=== PATIENT | female | born 1940 | race Caucasian/White ===

== ENCOUNTER 2017-07-08 08:47 | Day surgery (SDC) | payer MEDICARE, SELFPAY ==
--- NOTE | 2017-07-08 | IMM_PTH ---
PATIENT: KENY BAPTISTE LOC: EN U#:[id number] AGE/SX: 77/F ROOM: RE07/08/[address]: Dr. Neville Ardon MD : 1940 BED: DIS: 07/08/2017 SPEC #: [id number] RECD: 07/11/17 13:28 STATUS: JUAN M REKelly #: [id number] HANSEL: 07/08/17 00:[address]: Neville Ardon DEPT: IMMUNOHISTOCHEMISTRY RECD BY: Deanna Mccormack ENTERED: 07/11/17 13:28 SP TYPE: IMMUNO OTHR DR: Dr. Sukhi Mcclure MD Tissues: A - Stomach, NOS Procedures: H Pylori (initial) PHYSICIAN & INSTITUTION [place] [address] SPECIMEN INFORMATION: Tissue Source: A ? Antrum biopsy Clinical Info: Uncontrolled GERD Specimen Number: [id number] CPT code: 71162 METHODOLOGY: Deparaffinized sections of prefer/formalin-fixed tissue or PAP/DQ stained slides are incubated with monoclonal/polyclonal antibodies/oligonucleotide probes. Localization is made via biotin free immunoperoxidase method. Appropriate controls are performed and reacted as expected. Results on target cell population are indicated in the following table: RESULTS: ANTIBODY / CLONE RESULT Block A H Pylori (polyclonal) negative These tests were developed and their performance characteristics determined by [facility]. They may not have been cleared or approved by the U.S. Food and Drug Administration. The FDA has determined that such clearance or approval is not necessary. INTERPRETATION: A. Antrum, biopsy: Negative for Helicobacter pylori organisms. AM:gemma 07/12/17
[2017-07-08 09:07] VITALS: BP 137/81; PULSE 75; RESP 16; TEMP 36.6; O2SAT 97; BMI 26.4
--- NOTE | 2017-07-08 10:16 | GASB_PTH ---
PATIENT: KENY BAPTISTE LOC: EN U#:[id number] AGE/SX: 77/F ROOM: RE07/08/[address]: Dr. Neville Ardon MD : 1940 BED: DIS: 07/08/2017 SPEC #: [id number] RECD: 07/08/17 11:39 STATUS: JUAN M RENETTA #: [id number] HANSEL: 07/08/17 10:[address]: Neville Ardon DEPT: SURGICAL PATHOLOGY RECD BY: Wagner Ko ENTERED: 07/08/17 12:58 SP TYPE: Gastric Bx OTHR DR: Dr. Sukhi Mcclure MD Tissues: A - Gastric mucous membrane B - Gastric mucous membrane C - Esophageal mucous membrane Procedures: Surgery Specimen Level IV HEADER OPERATION: EGD with biopsy PRE-OP DIAGNOSIS: Uncontrolled GERD TISSUE SUBMITTED: A ? Antrum biopsy, B ? Biopsy of gastric polyp, C ? Biopsy of distal esophagus FROZEN SECTION DIAGNOSIS A. The results of immunohistochemistry for Helicobacter pylori will be reported separately ([id number]). C. There is no evidence of reflux. Clinical correlation is suggested. MICROSCOPIC DIAGNOSIS A. Gastric antrum, biopsy: Gastritis. See microscopic description and comment. B. Gastric polyp, biopsy: Fundic gland polyp. C. Distal esophagus, biopsy: Fragments of benign squamous mucosa. See comment. AM:gemma 07/11/17 COMMENT A. The specimen shows fragments of gastric mucosa with chronic inflammatory cell infiltrates in the lamina propria consisting of lymphocytes and plasma cells, consistent with mild chronic gastritis. MICROSCOPIC DESCRIPTION Slides are reviewed. GROSS DESCRIPTION A - Received in fixative is one container labeled with the patient's name and designated antrum biopsy. The specimen consists of one irregular fragment of light smith soft tissue that measures 0.3 x 0.2 x 0.1 cm. The specimen is totally submitted in one cassette. B - Received in fixative is one container labeled with the patient's name and designated gastric polyp. The specimen consists of one irregular fragment of light smith soft tissue that measures 0.5 x 0.3 x 0.1 cm. The specimen is totally submitted in one cassette. C - Received in fixative is one container labeled with the patient's name and designated distal esophagus. The specimen consists of multiple irregular fragments of light smith soft tissue that in aggregate measure 0.6 x 0.5 x 0.1 cm. The specimen is totally submitted in one cassette. / AM:gemma 07/08/17 TC:3 CPT: 49725 x3
--- NOTE | 2017-07-08 10:16 | GASB_PTH ---
PATIENT: KENY BAPTISTE LOC: EN U#:[id number] AGE/SX: 77/F ROOM: RE07/08/[address]: Dr. Neville Ardon MD : 1940 BED: DIS: 07/08/2017 SPEC #: [id number] RECD: 07/08/17 11:39 STATUS: JUAN M RENETTA #: [id number] HANSEL: 07/08/17 10:[address]: Neville Ardon DEPT: SURGICAL PATHOLOGY RECD BY: Wagner Ko ENTERED: 07/08/17 12:58 SP TYPE: Gastric Bx OTHR DR: Dr. Sukhi Mcclure MD Tissues: A - Gastric mucous membrane B - Gastric mucous membrane C - Esophageal mucous membrane Procedures: Surgery Specimen Level IV HEADER OPERATION: EGD with biopsy PRE-OP DIAGNOSIS: Uncontrolled GERD TISSUE SUBMITTED: A ? Antrum biopsy, B ? Biopsy of gastric polyp, C ? Biopsy of distal esophagus MICROSCOPIC DIAGNOSIS A. Gastric antrum, biopsy: Gastritis. See microscopic description and comment. B. Gastric polyp, biopsy: Fundic gland polyp. C. Distal esophagus, biopsy: Fragments of benign squamous mucosa. See comment. AM:gemma 07/11/17 COMMENT A. The results of immunohistochemistry for Helicobacter pylori will be reported separately ([id number]). C. There is no evidence of reflux. Clinical correlation is suggested. MICROSCOPIC DESCRIPTION Slides are reviewed. A. The specimen shows fragments of gastric mucosa with chronic inflammatory cell infiltrates in the lamina propria consisting of lymphocytes and plasma cells, consistent with mild chronic gastritis. GROSS DESCRIPTION A - Received in fixative is one container labeled with the patient's name and designated antrum biopsy. The specimen consists of one irregular fragment of light smith soft tissue that measures 0.3 x 0.2 x 0.1 cm. The specimen is totally submitted in one cassette. B - Received in fixative is one container labeled with the patient's name and designated gastric polyp. The specimen consists of one irregular fragment of light smith soft tissue that measures 0.5 x 0.3 x 0.1 cm. The specimen is totally submitted in one cassette. C - Received in fixative is one container labeled with the patient's name and designated distal esophagus. The specimen consists of multiple irregular fragments of light smith soft tissue that in aggregate measure 0.6 x 0.5 x 0.1 cm. The specimen is totally submitted in one cassette. / AM:gemma 07/08/17 TC:3 CPT: 99741 x3
[2017-07-08 10:27] VITALS: BP 137/71; BP 149/67; PULSE 77; RESP 16; TEMP 37.1; O2SAT 98
--- NOTE | 2017-07-08 10:29 | OP.PCM_ITS ---
Problem List (1) GERD (gastroesophageal reflux disease) Status: Acute Report of Operation Date of Procedure: 07/08/17 Pre-Operative Diagnosis: Intractable gastroesophageal reflux disease Post-Operative Diagnosis: Hiatal hernia, distal esophagitis, gonzales gastritis, multiple gastric polyps Surgery/Procedure Performed:: Esophagogastroduodenoscopy with cold forcep biopsies Description of Surgical Findings:: Amount and informed consent was obtained. The patient was taken to the endoscopy suite. Because of multiple narcotic allergies monitored anesthesia care was utilized. Her oropharynx was anesthetized with Cetacaine. She was placed in the left lateral decubitus position. Flexible gastroscope was inserted into the esophageal inlet. Proximal mid distal esophagus not grossly workable. EG junction was only at 35 cm. Hiatal hernia noted. Mild changes consistent with distal esophagitis noted the scope was advanced into the stomach where diffuse mild erythema involving all of the stomach was noted. There were multiple gastric polyps noted. There appear to be easy friability and some evidence of some coffee-ground material around the polyps. The scope advanced through the pylorus and the first and second portions of the duodenum were inspected. This was not remarkable. The scope was withdrawn back into the stomach and antral biopsy was obtained. The scope was retroflexed in the EG junction inspected. The hiatal hernia noted. On fast view of the multiple body of the stomach gastric polyps noted. Photographs were obtained. Cold forcep biopsy of 1 of the more dominant polyps was achieved. Excess fluid and air was aspirated free. Cold forcep biopsies of the distal esophagus were obtained. The scope was carefully withdrawn there was no additional abnormality. Impression Hiatal hernia with findings consistent with distal esophagitis. Diffuse gastritis with multiple gastric polyps and suggestion of easy friability and small amounts of coffee-ground material consistent with recent bleeding. The patient will be notified of pathology results on biopsies as a become available. She does have multiple drug intolerances. She states that the recommended over- the-counter omeprazole/Nexium did her no good. At this time I will recommend sucralfate 1 g before meals and at bedtime while awaiting pathology results. I do not believe that she is surgically treatable disease at this time. Cc: Dr. Kami Ardon M.D., F.A.C.S. Type of Anesthesia:: MAC
[2017-07-08 10:30] VITALS: BP 132/70; BP 137/71; PULSE 75; RESP 16; O2SAT 98
[2017-07-08 10:35] VITALS: BP 137/71; BP 151/73; PULSE 74; RESP 16; O2SAT 97
[2017-07-08 10:40] VITALS: BP 137/71; BP 142/88; PULSE 68; RESP 16; TEMP 37.1; O2SAT 100
[2017-07-08 11:18] VITALS: BP 137/71
== END 2017-07-08 11:19 | disposition home or self-care (01) ==
LOC: EN 08:49 → AC 08:51
PROVIDERS: Family Provider Family Medicine; PCP Family Medicine; Visit Provider Surgery
PROC: 0DJ08ZZ Inspection of Upper Intestinal Tract, Via Natural or Artificial Opening Endoscopic (ICD-10-PCS; CPT 43235; principal; 2017-07-08 09:55)
DX: K29.70 Gastritis, unspecified, without bleeding (principal); K31.7 Polyp of stomach and duodenum; K21.9 Gastro-esophageal reflux disease without esophagitis; K44.9 Diaphragmatic hernia without obstruction or gangrene; E78.5 Hyperlipidemia, unspecified; G43.909 Migraine, unspecified, not intractable, without status migrainosus; R56.9 Unspecified convulsions; G47.30 Sleep apnea, unspecified; L43.9 Lichen planus, unspecified; M06.9 Rheumatoid arthritis, unspecified; Z79.891 Long term (current) use of opiate analgesic; Z79.899 Other long term (current) drug therapy
CPT/HCPCS: 43239; 88305; 88342; J7120

== ENCOUNTER → 2017-08-30 15:50 | Outpatient (CLI) | payer MEDICARE, SELFPAY ==
[2017-08-30 18:19] LABS: Absolute Lymphocyte Count 1.28 X10^3/ul (0.83-4.51); Absolute Neutrophil Count 3.2 X10^3/uL (2.0-7.7); Basophil# 0.01 X10^3/uL; Basophil% 0.2 % (0-1); Eosinophil# 0.13 X10^3/uL; Eosinophils% 2.6 % (0-5); Hematocrit 40.1 % (37-47); Hemoglobin 13.7 g/dl (12.0-15.0); Lymphocyte # 1.28 X10^3/ul (4.0); Lymphocyte % 25.4 % (19-41); Mean Corp Hgb Conc 34.2 g/gl (32-36); Mean Corpuscular Hgb 33.3 pg (27.0-32.0); Mean Corpuscular Volume 97.6 fL (81-99); Monocyte# 0.46 X10^3/uL; Monocyte% 9.1 % (0-10); Neutrophil # 3.16 X10^3/uL (2.7-7.7); Neutrophil % 62.7 % (47-70); Platelet Count 257 K/mm3 (150-450); Red Blood Count 4.11 M/mm3 (4.2-5.4)
[2017-08-30 18:21] LABS: POSITIVE COUNT NO; POSITIVE DIFFERENTIAL NO; POSITIVE MORPHOLOGY NO
[2017-08-30 18:34] LABS: ALB/GLOB Ratio 1.2 RATIO (0.9-2.4); AST(SGOT) 26 U/L (15-37); Alanine Aminotransfer ALT/SGPT 23 U/L (13-56); Alkaline Phosphatase 70 U/L (45-117); Anion Gap 9 (5-15); BUN 17 mg/dL (7-18); BUN/Creat Ratio 22.2 RATIO (10-20); Chloride 97 mmol/L (98-107); Cholesterol 181 mg/dL (200); Creatinine, Serum 0.76 mg/dL (0.55-1.02); EST Glomerular Filtration Rate 77 mL/min (>60); Est Glom Filt Rate - Afr Amer 94 mL/min (>60); Globulin 3.4 g/dL (2.2-4.2); Glucose 80 mg/dL (74-106); High Density Lipoprotein 68 mg/dL; Protein, Total 7.4 g/dL (6.4-8.2); Sodium Level 132 mmol/L (136-145); Triglycerides 250 mg/dL; Very Low Density Lipoprotein 50 mg/dL (5-40)
== END ==
PROVIDERS: Family Provider Family Medicine; PCP Family Medicine; Visit Provider Family Medicine
DX: K29.70 Gastritis, unspecified, without bleeding (principal); E78.5 Hyperlipidemia, unspecified
CPT/HCPCS: 36415; 80053; 80061; 85025

== ENCOUNTER → 2017-09-08 09:56 | Outpatient (CLI) | payer MEDICARE, SELFPAY ==
--- NOTE | 2017-09-08 09:57 | US_ITS ---
PROCEDURES: ULTRASOUND AORTA REASON FOR EXAM: Female, 77 years old. Abdominal bruit. TECHNIQUE: Ultrasound evaluation of the aorta was performed with real-time and static lira-scale imaging. COMPARISON: None. FINDINGS: There is atherosclerotic plaque formation of the abdominal aorta. Aorta measures: Proximal 2.0 cm. Middle 2.2 cm. Distal 1.5 cm. Aorta measure transversely: Proximal 2.4 cm. Middle 1.8 cm. Distal 1.4 cm. There is normal color signal and Doppler waveform throughout the aorta. Right iliac artery measures: 1.0 cm. Right iliac artery measure transversely: 0.9 cm. Left iliac artery measures: 0.9 cm. Left iliac artery measure transversely: 1.0 cm. There is no demonstrated aneurysm.. US/Aorta IMPRESSION: Atherosclerotic changes of the abdominal aorta without aneurysm. Electronically Signed: Vivek Oquendo DO at 17:01 EDT Tel [phone], Service support ,
== END ==
PROVIDERS: Family Provider Family Medicine; PCP Family Medicine; Visit Provider Family Medicine
DX: R09.89 Other specified symptoms and signs involving the circulatory and respiratory systems (principal)
CPT/HCPCS: 76775

== ENCOUNTER → 2017-12-06 12:03 | Outpatient (CLI) | payer MEDICARE, SELFPAY ==
--- NOTE | 2017-12-06 12:08 | US_ITS ---
STUDY: ULTRASOUND OF THE FEMALE PELVIS - COMPLETE REASON FOR EXAM: Female, 77 years old. Postmenopausal bleeding LMP: TECHNIQUE: Transabdominal and transvaginal TECHNICAL QUALITY: Adequate. COMPARISON: None. FINDINGS: The uterus is anteverted and is in a midline position. The uterus measures 8.5 x 4.3 x 3.7 cm. Normal uterine cervix. The endometrium measures 3.2 mm in thickness, and is hyperechoic . There is no demonstrated endometrial mass. Myometrium is heterogeneous however there is no well-defined intrauterine fibroid I.U.D. - The patient does not have an I.U.D. Ovaries are not visualized. There is no adnexal mass There is no fluid in the cul-de-sac. US/Pelvic (Non ) IMPRESSION: Heterogeneous appearance to the uterus without well-defined fibroid. MRI would be helpful for further evaluation in this regard if indicated. Normal endometrial lining thickness for postmenopausal patient Electronically Signed: Angel Gray MD at 20:11 EDT , Service support ,
--- NOTE | 2017-12-06 12:08 | US_ITS ---
STUDY: ULTRASOUND OF THE FEMALE PELVIS - COMPLETE REASON FOR EXAM: Female, 77 years old. Postmenopausal bleeding LMP: TECHNIQUE: Transabdominal and transvaginal TECHNICAL QUALITY: Adequate. COMPARISON: None. FINDINGS: The uterus is anteverted and is in a midline position. The uterus measures 8.5 x 4.3 x 3.7 cm. Normal uterine cervix. The endometrium measures 3.2 mm in thickness, and is hyperechoic . There is no demonstrated endometrial mass. Myometrium is heterogeneous however there is no well-defined intrauterine fibroid I.U.D. - The patient does not have an I.U.D. Ovaries are not visualized. There is no adnexal mass There is no fluid in the cul-de-sac. US/Transvaginal Non- IMPRESSION: Heterogeneous appearance to the uterus without well-defined fibroid. MRI would be helpful for further evaluation in this regard if indicated. Normal endometrial lining thickness for postmenopausal patient Electronically Signed: Angel Gray MD at 20:11 EDT , Service support ,
== END ==
PROVIDERS: Family Provider Family Medicine; PCP Family Medicine; Visit Provider Obstetrics & Gynecology
DX: N95.0 Postmenopausal bleeding (principal)
CPT/HCPCS: 76830; 76856

== ENCOUNTER → 2018-02-01 10:29 | Outpatient (CLI) | payer MEDICARE, SELFPAY ==
[2018-02-01 12:24] LABS: Absolute Lymphocyte Count 1.07 X10^3/ul (0.83-4.51); Absolute Neutrophil Count 2.4 X10^3/uL (2.0-7.7); Basophil# 0.02 X10^3/uL; Basophil% 0.5 % (0-1); Eosinophil# 0.13 X10^3/uL; Eosinophils% 3.3 % (0-5); Hematocrit 39.1 % (37-47); Hemoglobin 13.3 g/dl (12.0-15.0); Lymphocyte # 1.07 X10^3/ul (4.0); Mean Corpuscular Hgb 33.3 pg (27.0-32.0); Mean Platelet Vol. 8.8 fl (6.2-12.0); Monocyte# 0.34 X10^3/uL; Monocyte% 8.6 % (0-10); Neutrophil # 2.39 X10^3/uL (2.7-7.7); Neutrophil % 60.3 % (47-70); Platelet Count 245 K/mm3 (150-450); RBC Distribution Width CV 11.8 % (11.6-14.6); RBC Distribution Width SD 42.5 fl (35.1-43.9); Red Blood Count 3.99 M/mm3 (4.2-5.4)
[2018-02-01 12:28] LABS: POSITIVE COUNT NO; POSITIVE DIFFERENTIAL NO; POSITIVE MORPHOLOGY NO
[2018-02-01 12:54] LABS: Vitamin B12 544 pg/mL (211-911)
[2018-02-01 13:12] LABS: ALB/GLOB Ratio 1.1 RATIO (0.9-2.4); AST(SGOT) 24 U/L (15-37); Alanine Aminotransfer ALT/SGPT 27 U/L (13-56); Albumin, Serum 3.9 g/dL (3.2-5.0); Alkaline Phosphatase 69 U/L (45-117); Anion Gap 8 (5-15); BUN 14 mg/dL (7-18); BUN/Creat Ratio 16.5 RATIO (10-20); Calcium,Total 8.7 mg/dL (8.5-10.1); Chloride 99 mmol/L (98-107); Cholesterol 173 mg/dL (200); Creatinine, Serum 0.85 mg/dL (0.55-1.02); EST Glomerular Filtration Rate 68 mL/min (>60); Est Glom Filt Rate - Afr Amer 83 mL/min (>60); Globulin 3.4 g/dL (2.2-4.2); Glucose 82 mg/dL (74-106); High Density Lipoprotein 66 mg/dL; Protein, Total 7.3 g/dL (6.4-8.2); Sodium Level 135 mmol/L (136-145); Triglycerides 185 mg/dL; Very Low Density Lipoprotein 37 mg/dL (5-40)
[2018-02-05 11:18] LABS: Vitamin B1, Thiamine 120.1 nmol/L (66.5-200.0)
== END ==
PROVIDERS: Family Provider Family Medicine; PCP Family Medicine; Visit Provider Family Medicine
DX: E78.5 Hyperlipidemia, unspecified (principal); K21.0 Gastro-esophageal reflux disease with esophagitis; G56.00 Carpal tunnel syndrome, unspecified upper limb
CPT/HCPCS: 36415; 80053; 80061; 82607; 84425; 85025

== ENCOUNTER → 2018-04-25 16:07 | Outpatient (CLI) | payer MEDICARE, SELFPAY ==
--- NOTE | 2018-04-25 16:12 | BI_ITS ---
MAMMOGRAPHY - BILATERAL SCREENING REASON FOR EXAM: Female, 77 years old. Routine annual screening examination. PERTINENT HISTORY: Non-contributory. TECHNIQUE: Digital bilateral breast jessie (3D mammographic acquisition) in the CC and MLO projections. 2-D mediolateral oblique (MLO) and craniocaudad (CC) views of both breasts were obtained. CAD: Full Field Digital Mammography with Computer Added Detection was performed. COMPARISON: Comparison is made with prior study dated April 01, 2017. FINDINGS: Breast Composition: The breasts are heterogeneously dense, which may obscure small masses. There are no dominant masses or suspicious calcifications. Stable benign-appearing bilateral axillary lymph nodes. No other significant abnormalities are identified. There has been no significant change since the prior study. BI/SCREENING MAMM (CAD), BILAT IMPRESSION: Stable bilateral screening mammogram. Yearly follow-up mammogram recommended. (A) ASSESSMENT CATEGORY: BIRADS Category 2: Benign. A letter regarding these results will be sent to the patient by the facility within 30 days. Approximately 10% of breast cancers are not detected by mammography. A normal mammogram should not delay biopsy of a clinically suspicious abnormality. [id number] Electronically Signed: Romero Childress MD at 9:23 EST Tel [phone], Service support ,
== END ==
PROVIDERS: Family Provider Family Medicine; PCP Family Medicine; Visit Provider Obstetrics & Gynecology
DX: Z12.31 Encounter for screening mammogram for malignant neoplasm of breast (principal)
CPT/HCPCS: 77063; 77067

== ENCOUNTER → 2018-06-09 11:42 | Outpatient (CLI) | payer MEDICARE, SELFPAY ==
[2018-04-04 13:28] VITALS: BMI 26.4
[2018-06-09 13:07] LABS: Absolute Lymphocyte Count 1.13 X10^3/ul (0.83-4.51); Absolute Neutrophil Count 2.2 X10^3/uL (2.0-7.7); Basophil# 0.02 X10^3/uL; Basophil% 0.5 % (0-1); Eosinophil# 0.13 X10^3/uL; Eosinophils% 3.4 % (0-5); Hematocrit 38.2 % (37-47); Hemoglobin 13.3 g/dl (12.0-15.0); Lymphocyte # 1.13 X10^3/ul (4.0); Lymphocyte % 29.1 % (19-41); Mean Corp Hgb Conc 34.8 g/gl (32-36); Mean Corpuscular Volume 97.7 fL (81-99); Mean Platelet Vol. 8.7 fl (6.2-12.0); Monocyte# 0.43 X10^3/uL; Monocyte% 11.1 % (0-10); Neutrophil # 2.16 X10^3/uL (2.7-7.7); Neutrophil % 55.6 % (47-70); Platelet Count 247 K/mm3 (150-450); RBC Distribution Width SD 42.6 fl (35.1-43.9); Red Blood Count 3.91 M/mm3 (4.2-5.4); White Blood Count 3.9 K/mm3 (4.4-11.0)
[2018-06-09 13:08] LABS: POSITIVE COUNT NO; POSITIVE DIFFERENTIAL NO; POSITIVE MORPHOLOGY NO
[2018-06-09 13:21] LABS: ALB/GLOB Ratio 1.3 RATIO (0.9-2.4); AST(SGOT) 20 U/L (15-37); Alanine Aminotransfer ALT/SGPT 26 U/L (13-56); Albumin, Serum 3.9 g/dL (3.2-5.0); Alkaline Phosphatase 67 U/L (45-117); Anion Gap 9 (5-15); BUN 13 mg/dL (7-18); BUN/Creat Ratio 16.8 RATIO (10-20); Calcium,Total 8.8 mg/dL (8.5-10.1); Chloride 103 mmol/L (98-107); Cholesterol 176 mg/dL (200); Creatinine, Serum 0.77 mg/dL (0.55-1.02); EST Glomerular Filtration Rate 76 mL/min (>60); Est Glom Filt Rate - Afr Amer 92 mL/min (>60); Globulin 3.1 g/dL (2.2-4.2); Glucose 83 mg/dL (74-106); High Density Lipoprotein 61 mg/dL; Potassium 3.9 mmol/L (3.5-5.1); Sodium Level 138 mmol/L (136-145); Triglycerides 278 mg/dL; Very Low Density Lipoprotein 56 mg/dL (5-40)
== END ==
PROVIDERS: Family Provider Family Medicine; PCP Family Medicine; Referring Provider Family Medicine; Visit Provider Family Medicine
DX: K21.0 Gastro-esophageal reflux disease with esophagitis (principal); E78.5 Hyperlipidemia, unspecified
CPT/HCPCS: 36415; 80053; 80061; 85025

== ENCOUNTER → 2018-11-27 | Outpatient (CLI) | payer MEDICARE, SELFPAY ==
[2018-04-04 13:28] VITALS: BMI 26.4
[2018-11-27 12:47] LABS: Cholesterol 172 mg/dL (200); High Density Lipoprotein 78 mg/dL; Triglycerides 175 mg/dL; Very Low Density Lipoprotein 35 mg/dL (5-40)
== END | disposition home or self-care (01) ==
LOC: MTLAB 10:25
PROVIDERS: Family Provider Family Medicine; PCP Family Medicine; Referring Provider Family Medicine; Visit Provider Family Medicine
DX: E78.5 Hyperlipidemia, unspecified (principal)
CPT/HCPCS: 36415; 80061

== ENCOUNTER → 2019-04-10 | Outpatient (CLI) | payer MEDICARE, SELFPAY ==
[2018-04-04 13:28] VITALS: BMI 26.4
[2019-04-10 12:12] LABS: Hematocrit 37.3 % (37-47); Mean Corp Hgb Conc 34.9 g/dL (32-36); Mean Corpuscular Hgb 33.9 pg (27.0-32.0); Mean Corpuscular Volume 97.4 fL (81-99); Mean Platelet Vol. 8.7 fl (6.2-12.0); Platelet Count 264 K/mm3 (150-450); RBC Distribution Width CV 11.7 % (11.6-14.6); RBC Distribution Width SD 41.3 fl (35.1-43.9); Red Blood Count 3.83 M/mm3 (4.2-5.4)
[2019-04-10 12:48] LABS: ALB/GLOB Ratio 1.1 RATIO (0.9-2.4); AST(SGOT) 21 U/L (15-37); Alanine Aminotransfer ALT/SGPT 24 U/L (13-56); Albumin, Serum 3.8 g/dL (3.2-5.0); Alkaline Phosphatase 73 U/L (45-117); Anion Gap 6 (5-15); BUN 13 mg/dL (7-18); BUN/Creat Ratio 15.6 RATIO (10-20); Chloride 96 mmol/L (98-107); Creatinine, Serum 0.84 mg/dL (0.55-1.02); EST Glomerular Filtration Rate 70 mL/min (>60); Est Glom Filt Rate - Afr Amer 84 mL/min (>60); Globulin 3.4 g/dL (2.2-4.2); Glucose 107 mg/dL (74-106); Potassium 3.7 mmol/L (3.5-5.1); Protein, Total 7.2 g/dL (6.4-8.2); Sodium Level 134 mmol/L (136-145)
== END | disposition home or self-care (01) ==
PROVIDERS: Family Provider Family Medicine; PCP Family Medicine
DX: G40.309 Generalized idiopathic epilepsy and epileptic syndromes, not intractable, without status epilepticus (principal)
CPT/HCPCS: 36415; 80053; 80156; 85027

== ENCOUNTER → 2019-05-28 12:54 | Outpatient (CLI) | payer MEDICARE, SELFPAY ==
[2019-05-08 15:17] VITALS: BMI 26.4
--- NOTE | 2019-05-28 12:56 | BI_ITS ---
MAMMOGRAPHY - BILATERAL SCREENING REASON FOR EXAM: Female, 78 years old. Routine annual screening examination. PERTINENT HISTORY: Non-contributory. Remote right breast biopsy. TECHNIQUE: Digital bilateral breast mani (3D mammographic acquisition) in the CC and MLO projections. 2-D mediolateral oblique (MLO) and craniocaudad (CC) views of both breasts were obtained. CAD: Full Field Digital Mammography with Computer Added Detection was performed. COMPARISON: Comparison is made with prior study dated April 25, 2018 and April 01, 2017. FINDINGS: Breast Composition: The breasts are heterogeneously dense, which may obscure small masses. There are no dominant masses or suspicious calcifications. Stable small benign-appearing bilateral axillary lymph nodes. No other significant abnormalities are identified. There has been no significant change since the prior study. BI/SCREEN MAMM (CAD) W/MANI BILAT IMPRESSION: Stable bilateral screening mammogram. Yearly follow-up mammogram recommended. (A) ASSESSMENT CATEGORY: BIRADS Category 2: Benign. A letter regarding these results will be sent to the patient by the facility within 30 days. Approximately 10% of breast cancers are not detected by mammography. A normal mammogram should not delay biopsy of a clinically suspicious abnormality. [id number] Electronically Signed: Romero Childress, at 14:01 EST , Service support ,
== END ==
PROVIDERS: Family Provider Family Medicine; PCP Family Medicine; Referring Provider Obstetrics & Gynecology; Visit Provider Obstetrics & Gynecology
DX: Z12.31 Encounter for screening mammogram for malignant neoplasm of breast (principal)
CPT/HCPCS: 77063; 77067

== ENCOUNTER → 2019-08-06 | Outpatient (CLI) | payer MEDICARE, SELFPAY ==
[2019-05-08 15:17] VITALS: BMI 26.4
[2019-08-06 17:29] LABS: Absolute Lymphocyte Count 1.35 X10^3/uL (0.83-4.51); Absolute Neutrophil Count 2.9 X10^3/uL (2.0-7.7); Basophil# 0.04 X10^3/uL; Basophil% 0.8 % (0-1); Eosinophil# 0.11 X10^3/uL; Eosinophils% 2.2 % (0-5); Hematocrit 38.5 % (37-47); Hemoglobin 13.4 g/dL (12.0-15.0); Lymphocyte # 1.35 X10^3/ul (4.0); Lymphocyte % 27.6 % (19-41); Mean Corp Hgb Conc 34.8 g/dL (32-36); Mean Corpuscular Hgb 34.2 pg (27.0-32.0); Mean Corpuscular Volume 98.2 fL (81-99); Mean Platelet Vol. 8.8 fl (6.2-12.0); Monocyte# 0.52 X10^3/uL; Monocyte% 10.6 % (0-10); NRBC Flagged by Analyzer 0 % (0-5); Neutrophil # 2.86 X10^3/uL (2.7-7.7); Neutrophil % 58.4 % (47-70); Platelet Count 274 K/mm3 (150-450); RBC Distribution Width CV 11.3 % (11.6-14.6); RBC Distribution Width SD 40.9 fl (35.1-43.9); Red Blood Count 3.92 M/mm3 (4.2-5.4); White Blood Count 4.9 K/mm3 (4.4-11.0)
[2019-08-06 17:44] LABS: ALB/GLOB Ratio 1.3 RATIO (0.9-2.4); AST(SGOT) 18 U/L (15-37); Alanine Aminotransfer ALT/SGPT 26 U/L (13-56); Albumin, Serum 3.8 g/dL (3.2-5.0); Alkaline Phosphatase 68 U/L (45-117); Anion Gap 7 (5-15); BUN 14 mg/dL (7-18); BUN/Creat Ratio 18.2 RATIO (10-20); Calcium,Total 8.7 mg/dL (8.5-10.1); Chloride 97 mmol/L (98-107); Cholesterol 175 mg/dL (200); Creatinine, Serum 0.77 mg/dL (0.55-1.02); EST Glomerular Filtration Rate 77 mL/min (>60); Est Glom Filt Rate - Afr Amer 93 mL/min (>60); Glucose 80 mg/dL (74-106); High Density Lipoprotein 65 mg/dL; Protein, Total 6.8 g/dL (6.4-8.2); Sodium Level 131 mmol/L (136-145); Triglycerides 312 mg/dL; Very Low Density Lipoprotein 62 mg/dL (5-40)
== END | disposition home or self-care (01) ==
LOC: MFPLAB 15:01
PROVIDERS: PCP Family Medicine; Referring Provider Family Medicine; Visit Provider Family Medicine
DX: K21.0 Gastro-esophageal reflux disease with esophagitis (principal); E78.5 Hyperlipidemia, unspecified
CPT/HCPCS: 36415; 80053; 80061; 85025

== ENCOUNTER → 2020-03-05 | Outpatient (CLI) | payer MEDICARE, SELFPAY ==
[2019-05-08 15:17] VITALS: BMI 26.4
--- NOTE | 2020-03-05 10:50 | BD_ITS ---
STUDY: DUAL ENERGY X-RAY ABSORPTIOMETRY / DXA REASON FOR EXAM: Female, 79 years old. 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 COMPARISON: None. FINDINGS: Right Forearm: g/cm2 (0.757) / T-score (-1.5) / Z-score (1.4) Left Forearm: g/cm2 (0.673) / T-score (-2.4) / Z-score (0.4) BD/Dexa Bone Density/Append Skel IMPRESSION: The patient is considered osteopenic as outlined below according to World Stevan Organization (WHO) criteria with a high fracture risk. Reference Information: The T-score is the number of standard deviations above or below the standard which is normal for young adults at their peak bone mineral density. The World Health Organization (WHO) interprets the T-scores as follows: Above -1 Normal bone density Between -1 and -2.5 Osteopenia Equal to / or below -2.5 Osteoporosis As a practical clinical guideline, osteopenia may be graded as follows: Mild -1 through -1.5 Moderate -1.6 through -2.0 Severe -2.1 through -2.4 The Z-score is the number of standard deviations above or below age-matched controls. A Z-score of less than -1.5 would be considered abnormal. References: 1. NIH Osteoporosis and Related Bone Diseases http://www.osteo.org 2. International Society for Clinical Densitometry http://www.iscd.org 3. National Osteoporosis Foundation http://www.nof.org Electronically Signed: Romero Childress, at 15:29 EDT , Service support ,
== END | disposition home or self-care (01) ==
LOC: OPBD 10:43
PROVIDERS: PCP Family Medicine; Referring Provider Family Medicine; Visit Provider Family Medicine
DX: Z78.0 Asymptomatic menopausal state (principal); Z13.820 Encounter for screening for osteoporosis
CPT/HCPCS: 77081

== ENCOUNTER 2020-07-11 13:48 | Outpatient (RCR) | payer MEDICARE, SELFPAY ==
[2019-05-08 15:17] VITALS: BMI 26.4
== END 2020-07-11 23:59 ==
LOC: IMMUN 13:48
PROVIDERS: PCP Family Medicine; Visit Provider Family Medicine
DX: Z23 Encounter for immunization (principal)
CPT/HCPCS: 0011A; 0012A; 91301

== ENCOUNTER → 2020-08-13 13:36 | Outpatient (CLI) | payer MEDICARE, SELFPAY ==
[2019-05-08 15:17] VITALS: BMI 26.4
[2020-08-13 15:49] LABS: ALB/GLOB Ratio 1.1 RATIO (0.9-2.4); AST(SGOT) 24 U/L (15-37); Alanine Aminotransfer ALT/SGPT 26 U/L (13-56); Albumin, Serum 3.8 g/dL (3.2-5.0); Alkaline Phosphatase 68 U/L (45-117); Anion Gap 7 (5-15); BUN 16 mg/dL (7-18); BUN/Creat Ratio 20.9 RATIO (10-20); Calcium,Total 8.6 mg/dL (8.5-10.1); Chloride 98 mmol/L (98-107); Cholesterol 183 mg/dL (200); Creatinine, Serum 0.76 mg/dL (0.55-1.02); EST Glomerular Filtration Rate 77 mL/min (>60); Est Glom Filt Rate - Afr Amer 93 mL/min (>60); Globulin 3.4 g/dL (2.2-4.2); Glucose 97 mg/dL (74-106); High Density Lipoprotein 66 mg/dL; Potassium 3.5 mmol/L (3.5-5.1); Protein, Total 7.2 g/dL (6.4-8.2); Sodium Level 133 mmol/L (136-145); Triglycerides 359 mg/dL; Very Low Density Lipoprotein 72 mg/dL (5-40); Vitamin D,25 Hydroxy 31.5 ng/mL
== END ==
PROVIDERS: PCP Family Medicine; Referring Provider Family Medicine; Visit Provider Family Medicine
DX: E78.5 Hyperlipidemia, unspecified (principal); M85.80 Other specified disorders of bone density and structure, unspecified site
CPT/HCPCS: 36415; 80053; 80061; 82306

== ENCOUNTER → 2020-10-07 15:19 | Outpatient (CLI) | payer MEDICARE, SELFPAY ==
[2020-09-25 13:07] VITALS: BMI 26.1
--- NOTE | 2020-10-07 15:21 | BI_ITS ---
MAMMOGRAPHY - BILATERAL SCREENING REASON FOR EXAM: Female, 80 years old. Routine annual screening examination. PERTINENT HISTORY: Non-contributory. TECHNIQUE: Digital bilateral breast mani (3D mammographic acquisition) in the CC and MLO projections. 2-D mediolateral oblique (MLO) and craniocaudad (CC) views of both breasts were obtained. CAD: Full Field Digital Mammography with Computer Added Detection was performed. COMPARISON: Comparison is made with prior study dated 05/28/2019 and 04/25/2018 FINDINGS: Breast Composition: The breasts are heterogeneously dense, which may obscure small masses. There are no dominant masses or suspicious calcifications. Stable small benign appearing bilateral axillary lymph nodes. No other significant abnormalities are identified. There has been no significant change since the prior study. BI/SCRN MAMM (CAD)W/MANI BILAT IMPRESSION: Stable bilateral screening mammogram. Yearly follow-up mammogram recommended. (A) ASSESSMENT CATEGORY: BIRADS Category 2: Benign. A letter regarding these results will be sent to the patient by the facility within 30 days. Approximately 10% of breast cancers are not detected by mammography. A normal mammogram should not delay biopsy of a clinically suspicious abnormality. [id number] Electronically Signed: Romero Childress MD at 8:16 EDT , Service support ,
== END ==
PROVIDERS: PCP Family Medicine; Referring Provider Obstetrics & Gynecology; Visit Provider Obstetrics & Gynecology
DX: Z12.31 Encounter for screening mammogram for malignant neoplasm of breast (principal)
CPT/HCPCS: 77063; 77067

== ENCOUNTER → 2021-03-13 08:36 | Outpatient (CLI) | payer MEDICARE, SELFPAY ==
--- NOTE | 2021-03-13 08:41 | AAAS_ITS ---
Reason For Study: Family hx of AAA Aorta Measurements Aorta Doppler Measurements Proximal aorta measures2.32 x 2.30cm. in cross- Peak systolic flow velocities within the proximal sectional axis. aorta measure 66.7 cm/sec. Proximal aorta measures2.31cm. in longitudinal Peak systolic flow velocities within the mid aorta axis. measure 64.8 cm/sec. Mid aorta measures1.26 x 1.27cm. in cross- Peak systolic flow velocities within the distal sectional axis. aorta measure 62.2 cm/sec. Mid aorta measures1.29cm. in longitudinal axis. Distal aorta measures1.30 x 1.30cm. in cross- sectional axis. Distal aorta measures1.27cm. in longitudinal axis. Left Iliac Artery Left iliac artery measures 0.90 x 0.90 cm. in the cross-sectional axis. Left iliac artery measures 0.91 cm. in the longitudinal axis. Peak systolic velocity in the left iliac artery measures 73.9 cm/sec. Right Iliac Artery Right iliac artery measures 0.98 x 1.00 cm. in the cross-sectional axis. Right iliac artery measures 0.98 cm. in the longitudinal axis. Peak systolic velocity in the right iliac artery measures 69.6 cm/sec. Procedure Aorta IVC Iliac vasculature or bypass grafts [id number]. Exam performed in department. VL/AAA Screening Interpretation Summary Maximal aortic diameter approximately 2.32 x 2.3 cm Normal aortic velocity flow Left common iliac normal at 0.9 x 0.9 cm Right common iliac normal at 0.98 x 1 cm No evidence for abdominal aortic aneurysm Ordering Physician: Sukhi Mcclure Referring Physician: Sukhi Mcclure Performed By: Vivian Monaco RVT
== END ==
PROVIDERS: PCP Family Medicine; Referring Provider Family Medicine; Visit Provider Family Medicine
DX: Z00.00 Encounter for general adult medical examination without abnormal findings (principal); Z82.49 Family history of ischemic heart disease and other diseases of the circulatory system
CPT/HCPCS: 76706

== ENCOUNTER 2021-06-16 11:28 | Outpatient (CLI) | payer MEDICARE, SELFPAY ==
[2021-06-16 14:59] LABS: Absolute Lymphocyte Count 1.02 X10^3/uL (0.83-4.51); Absolute Neutrophil Count 2.8 X10^3/uL (2.0-7.7); Basophil# 0.03 X10^3/uL; Basophil% 0.7 % (0-1); Eosinophil# 0.08 X10^3/uL; Eosinophils% 1.8 % (0-5); Hematocrit 38.2 % (37-47); Hemoglobin 13.2 g/dL (12.0-15.0); Lymphocyte # 1.02 X10^3/ul (0.83-4.51); Lymphocyte % 23.4 % (19-41); Mean Corp Hgb Conc 34.6 g/dL (32-36); Mean Corpuscular Hgb 33.8 pg (27.0-32.0); Mean Corpuscular Volume 97.7 fL (81-99); Mean Platelet Vol. 8.8 fl (6.2-12.0); Monocyte# 0.42 X10^3/uL; Monocyte% 9.6 % (0-10); NRBC Flagged by Analyzer 0 % (0-5); Neutrophil % 64.3 % (47-70); Platelet Count 251 K/mm3 (150-450); RBC Distribution Width CV 11.4 % (11.6-14.6); RBC Distribution Width SD 40.6 fl (35.1-43.9); Red Blood Count 3.91 M/mm3 (4.2-5.4); White Blood Count 4.4 K/mm3 (4.4-11.0)
[2021-06-16 15:11] LABS: Vitamin D,25 Hydroxy 34.7 ng/mL
[2021-06-16 15:13] LABS: ALB/GLOB Ratio 1.1 RATIO (0.9-2.4); AST(SGOT) 20 U/L (15-37); Alanine Aminotransfer ALT/SGPT 27 U/L (13-56); Albumin, Serum 3.7 g/dL (3.2-5.0); Alkaline Phosphatase 60 U/L (45-117); Anion Gap 9 (5-15); BUN 21 mg/dL (7-18); BUN/Creat Ratio 22.5 RATIO (10-20); Chloride 98 mmol/L (98-107); Cholesterol 174 mg/dL (200); Creatinine, Serum 0.93 mg/dL (0.55-1.02); EST Glomerular Filtration Rate 61 mL/min (>60); Est Glom Filt Rate - Afr Amer 74 mL/min (>60); Globulin 3.5 g/dL (2.2-4.2); Glucose 90 mg/dL (74-106); High Density Lipoprotein 66 mg/dL; Potassium 3.6 mmol/L (3.5-5.1); Protein, Total 7.2 g/dL (6.4-8.2); Sodium Level 136 mmol/L (136-145); Triglycerides 308 mg/dL; Very Low Density Lipoprotein 62 mg/dL (5-40)
== END 2021-06-16 23:59 | disposition short-term general hospital (02) ==
LOC: MTLAB 11:29
PROVIDERS: PCP Family Medicine; Referring Provider Family Medicine; Visit Provider Family Medicine
DX: E78.5 Hyperlipidemia, unspecified (principal); M85.80 Other specified disorders of bone density and structure, unspecified site
CPT/HCPCS: 36415; 80053; 80061; 82306; 85025

== ENCOUNTER 2022-01-22 07:58 | Day surgery (SDC) | payer MEDICARE, SELFPAY ==
[2022-01-22 08:23] VITALS: BP 158/73; PULSE 93; RESP 16; TEMP 36.3; O2SAT 100; BMI 24.3
[2022-01-22] MEDS: Lactated Ringers 1,000 ML 15 ML IV (08:27)
[2022-01-22] MEDS: Cefazolin 2 GM in 0.9% Normal Saline 100 ML IV (09:40)
[2022-01-22] MEDS: Lidocaine 1% /Epi 1:100 (20ml) 20 ML Vial (09:57)
--- NOTE | 2022-01-22 10:09 | PCM.HP.BLA ---
History and Physical Date of Admission: 01/22/22 [facility] [address] [place] [address] OFFICE VISIT Date of Service:? 01/06/22 MR#: [id number] Acct: [id number] Name:KENY SANTIAGO Rep #: [id number] : 1940 ? ? Provider: Dr. Talat Díaz, DO Age/Sex:? 81/F ? ? Location: [facility] [place].[facility] Status: Signed Intake Intake Visit Reasons:?LEFT HAND Chief Complaint: est annual Allergies codeine Adverse Reaction (Mild, Verified 01/06/22 13:54) Vomitingmeperidine HCl [From Demerol] Adverse Reaction (Mild, Verified 01/06/22 13:54) Nauseamorphine Adverse Reaction (Mild, Verified 01/06/22 13:54) Vomitingofloxacin [From Floxin] Adverse Reaction (Mild, Verified 01/06/22 13:54) Othersulfamethoxazole [From Bactrim] Adverse Reaction (Mild, Verified 01/06/22 13:54) Nauseasumatriptan [From Imitrex] Adverse Reaction (Mild, Verified 01/06/22 13:54) Othersumatriptan succinate [From Imitrex] Adverse Reaction (Mild, Verified 01/06/22 13:54) Othertrimethoprim [From Bactrim] Adverse Reaction (Mild, Verified 01/06/22 13:54) Nausea Medications carbamazepine 200 mg tablet 200 mg PO Q12H 06/16/17 [History Confirmed 01/06/22] cholecalciferol (vitamin D3) 25 mcg (1,000 unit) capsule 1,000 unit PO ONCE 06/16/17 [History Confirmed 01/06/22] meloxicam 15 mg tablet 15 mg PO QDAY 06/16/17 [History Confirmed 01/06/22] multivitamin 1 cap PO QDAY 06/16/17 [History Confirmed 01/06/22] rosuvastatin 10 mg tablet 10 mg PO QDAY 06/16/17 [History Confirmed 01/06/22] tacrolimus 0.1 % topical ointment 1 applic topical BID 06/16/17 [History Confirmed 01/06/22] verapamil 240 mg 24 hr capsule,extended release 240 mg PO QDAY 06/16/17 [History Confirmed 01/06/22] calcium carbonate 600 mg-vitamin D3 5 mcg (200 unit) capsule (Calcium 600 + D(3)) cap PO 05/08/19 [History Confirmed 01/06/22] omeprazole 20 mg capsule,delayed release 20 mg PO DAILY 05/08/19 [History Confirmed 01/06/22] clobetasol 0.05 % topical gel 1 applic topical DAILY 09/25/20 [History Confirmed 01/06/22] dexamethasone 0.5 mg/5 mL oral solution 0.5 mg PO BID 09/25/20 [History Confirmed 01/06/22] medroxyprogesterone 10 mg tablet (Provera) 10 mg PO QDAY PRN climatera #14 tabs 09/26/20 [Rx Confirmed 01/06/22] estradiol 0.5 mg tablet See Rx Instructions .Route .COMPLEX #90 tabs 12/11/21 [Rx Confirmed 01/06/22] PFSH Medical History?(Updated 08/03/21 @ 14:[address] Talat Díaz DO) GERD (gastroesophageal reflux disease) Hyperlipidemia Migraine Oral lichen planus Seizure Sleep apnea Surgical History? History of Achilles tendon repair History of bilateral hip replacements History of dilation and curettage History of laminectomy History of tonsillectomy History of tubal ligation History of vein stripping Family History? Mother Heart diseaseMother Hypertension Social History?(Updated 10/02/20 @ 05:[address] Taryn Lee MD) Smoking Status:? Never smoker alcohol intake:? never substance use type:? does not use caffeine:? No what type of physical activity do you participate in:? walking seatbelt use:? always do you feel safe at home:? Yes additional social history:? Ronnie- Both are retired HPI LEFT HAND Details: Parts of this documentation were recorded by a scribe, this documentation accurately reflects the service provided and the decisions made by me, Dr. Talat Díaz DO 01/06/22 0809. KENY BAPTISTE is a 81 year old F here today for left carpal tunnel syndrome. Patient had an EMG done on 08/24/21. Patient states that the pain, numbness, and tingling continues to worsen. Numbness and tingling is mostly into her 1st and 2nd 3rd fingers. Denies any new injury. States that the pain is worsened with any activity or lifting with her left hand/wrist. Patient states that she wears a splint at night. Denies any pain at night. Ortho Exam General General: Yes no acute distress Neurologic: Yes alert and Yes oriented x3 Psychologic: Yes reasonable and appropriate Right Wrist/Hand Skin/Wound: No Swelling and No Ecchymosis Left Wrist/Hand Skin/Wound: No Swelling, No Ecchymosis and No erythema Left Wrist: Yes Thenar Atrophy; No Durken's Test, No Tinel's, No Phalen's and No Hypothenar Atrophy WRIST: mild thenar atrophy Supplemental Info 08/24/2021 EMG nerve conduction study left upper extremity: Moderate to severe carpal tunnel syndrome. Coding Level of Care Code Off vis,est,level 3 Assessment and Plan Plan Details Additional Comments: Educated patient that the EMG shows compression on median nerve. Explained that the recommendation is surgery to do a release. Explained that injections are not recommended because they only give temporary relief and would only be able to give her a few injections before we would consider other options. Reviewed the pre-operative plans with the patient. Risks and benefits of the procedure were fully explained, including but not limited to infection, neurovascular injury, continued pain, arthritis, stiffness, need for further surgery, re-injury, DVT, PE, general risks of anesthesia, and loss of limb or life, incisional hypersensitivity and pillar pain. The patient understands all the risks and does wish to proceed with written consent. Patient would like to go ahead with left carpal tunnel release, she needs to have surgery on a or Tuesday due to transportation issues. Follow up 2 weeks postop or sooner if pain, swelling, numbness or associated symptoms, or concerns develop.? All questions answered. Patient in agreement of plan. 01/06/22 1427 <Electronically signed by Talat Díaz DO> Date Talat Borruso DO Cosigner Signature: Date (if applicable) ? CC: ? ~ I have re-examined the patient. There are no clinical changes since date of exam
--- NOTE | 2022-01-22 10:10 | OP.PCM_ITS ---
Operative Report Date of Procedure: 01/22/22 Preoperative diagnosis; left carpal tunnel syndrome Postoperative diagnosis; same Procedure: Left open carpal tunnel release Anesthesia: Local with MAC Tourniquet time; 9 minutes 250 mm Hg Complications: None Indication for procedure; This is a 81-year-old female with long-standing symp toms consistent with carpal tunnel syndrome the patient did have electrodiagnostic evidence of this and has failed conservative treatment. Risks benefits and alternatives were reviewed including risks of bleeding infection nerve artery tissue damage need for further surgery and continued pain and symptoms, hypersensitivity to scar and Pillar pain. Procedure; The patient was met in the preoperative holding area the operative extremity was identified by both patient and physician and was marked the patient was met by anesthesia and brought back to the operating room and transferred to the operating table in the supine position. Anesthesia was started. A well-padded tourniquet was placed on the operative upper extremity. The patient was prepped and draped in the usual sterile fashion. A timeout was called to ensure the proper patient procedure and extremity were being contemplated. 0.5 percent lidocaine with epinephrine was injected into the incisional area. An Esmarch was used to exsanguinate the extremity. The tourniquet was inflated to 250 mmHg. A midline incision was made with a 15 blade scalpel between the thenar and hypothenar eminence. This was carried down through the skin and subcutaneous tissue. Nuris retractors were then used, a deep blade scalpel was used to make a deep incision in the palmar aponeurosis. The nuris retractors were then placed deep to this and the transverse carpal ligament was identified a perforation was made with a scalpel and a Littler scissors were used to complete the release of the transverse carpal ligament distally under direct visualization with the tips facing ulnarly until the perivascular fat was reached. Then turning our attention proximally using a tension slide technique the proximal extent of the transverse carpal ligament was released . There was noted to be hourglass configuration to the median nerve and hypertrophy of the transverse carpal ligament without other findings. The wound was thoroughly irrigated and was closed with 4-0 nylon vertical mattress stitches. Dressing was applied in the form of xeroform 4 x 4, web roll and an eli wrap. Tourniquet was let down there is no intraoperative complications patient tolerated the procedure well and was transferred to the PACU. All counts were correct.
--- NOTE | 2022-01-22 10:10 | DCINST_ITS ---
Discharge Instructions Dressing / Incision Call your doctor if you observe: Shortness of breath and Chest pain Additional Dressing/Incision Instructions:: Ice and elevate operative extremity next 72 hours. Keep dressing on clean and dry for 48 hours then may remove and allow warm soapy water to rinse over incision but do not submerge until sutures are out. Then apply bandaid over incision and change daily. encourage finger range of motion. Not lift more than 1/2 pound. Minimize narcotic use only as needed and directed, may use OTC NSAID and Tylenol to supplement/substitute for pain control. Follow Up Care Please Follow Up With: Talat Díaz DO When: 2 weeks Test Results: Test results from this visit will be discussed in further detail at your follow- up appointment, if applicable. Discharge Plan Admission Attending Provider: Talat Díaz Primary Care Provider: Sukhi Mcclure Discharge Orders/Prescriptions Prescriptions: New oxycodone 5 mg tablet 2.5 - 5 mg PO Q4H PRN (Reason: pain) 3 Days Qty: 10 0RF No Action meloxicam 15 mg tablet 15 mg PO QDAY rosuvastatin [Crestor] 10 mg tablet 10 mg PO QDAY tacrolimus [Protopic] 0.1 % ointment 1 applic TOPICAL PRN PRN (Reason: oral) verapamil [Verelan] 240 mg capsule,ext rel. pellets 24 hr 240 mg PO QDAY cholecalciferol (vitamin D3) 1,000 unit capsule 1,000 unit PO ONCE multivitamin capsule capsule 1 cap PO QDAY carbamazepine [Tegretol] 200 mg tablet 100 mg PO DAILY Label Comments: 1/2 tablet am and 1 1/2 tabs pm omeprazole 20 mg capsule,delayed release(DR/EC) 40 mg PO DAILY calcium carbonate-vitamin D3 600 mg calcium-200 unit capsule 600 mg calcium- 200 unit capsule 1 cap PO DAILY dexamethasone 0.5 mg/5 mL solution 0.5 mg PO TID clobetasol 0.05 % gel 1 applic TOPICAL PRN PRN (Reason: Oral) acetaminophen-caffeine 500-65 mg Tablet 1 tab PO Q12H PRN (Reason: Pain) carbamazepine 300 mg Capsule, Er Multiphase 12 Hr 300 mg PO QHS medroxyprogesterone [Provera] 10 mg tablet 10 mg PO QDAY PRN (Reason: climatera) Qty: 14 4RF estradiol 0.5 mg tablet See Rx Instructions .ROUTE .COMPLEX Qty: 90 4RF Dose Instruction: TAKE 1 TABLET BY MOUTH EVERY DAY Rx Instructions: TAKE 1 TABLET BY MOUTH EVERY DAY Referrals / Follow Up: Sukhi Mcclure MD [Primary Care Provider] - Disposition Disposition (needs filled in before D/C Order can be placed): Home, Self Care
[2022-01-22 10:16] VITALS: BP 139/64; BP 158/73; PULSE 90; RESP 18; TEMP 36.3; O2SAT 97
[2022-01-22 10:20] VITALS: BP 137/65; BP 158/73; PULSE 84; RESP 16; O2SAT 96
[2022-01-22 10:25] VITALS: BP 147/69; BP 158/73; PULSE 80; RESP 18; O2SAT 94
[2022-01-22 10:30] VITALS: BP 150/70; BP 158/73; PULSE 78; RESP 18; TEMP 36.8; O2SAT 96
[2022-01-22 11:36] VITALS: BP 158/73; BP 162/59; PULSE 70; RESP 16; TEMP 36.3; O2SAT 98
== END 2022-01-22 11:37 | disposition home or self-care (01) ==
LOC: SDC 08:01 → AC 08:02
PROVIDERS: PCP Family Medicine; Visit Provider Orthopaedic Surgery
PROC: (CPT 64721; principal; 2022-01-22 09:15)
DX: G56.02 Carpal tunnel syndrome, left upper limb (principal); K21.9 Gastro-esophageal reflux disease without esophagitis; G47.30 Sleep apnea, unspecified; E78.5 Hyperlipidemia, unspecified; G43.909 Migraine, unspecified, not intractable, without status migrainosus; Z79.899 Other long term (current) drug therapy
CPT/HCPCS: 64721; 01810; J7120; J2405

== ENCOUNTER → 2022-03-11 | Outpatient (CLI) | payer MEDICARE, SELFPAY ==
--- NOTE | 2022-03-11 12:25 | BD_ITS ---
STUDY: DUAL ENERGY X-RAY ABSORPTIOMETRY / DXA REASON FOR EXAM: Female, 81 years old. M85.89 TECHNIQUE: Bone Mineral Density (BMD) measurements of lumbar spine and left forearm were obtained. COMPARISON: Comparison is made with prior study dated 03/05/2020. FINDINGS: Lumbar Spine (L1-L4): g/cm2 (1.156) / T-score (1.1) / Z-score (3.9) Findings are suggestive of normal bone density with a low fracture risk. Left Forearm: g/cm2 (0.444) / T-score (-2.5) / Z-score (0.9) BD/Dexa Bone Density Study IMPRESSION: The patient is considered osteopenic as outlined below according to World Stevan Organization (WHO) criteria with a high fracture risk. Reference Information: The T-score is the number of standard deviations above or below the standard which is normal for young adults at their peak bone mineral density. The World Health Organization (WHO) interprets the T-scores as follows: Above -1 Normal bone density Between -1 and -2.5 Osteopenia Equal to / or below -2.5 Osteoporosis As a practical clinical guideline, osteopenia may be graded as follows: Mild -1 through -1.5 Moderate -1.6 through -2.0 Severe -2.1 through -2.4 The Z-score is the number of standard deviations above or below age-matched controls. A Z-score of less than -1.5 would be considered abnormal. References: 1. NIH Osteoporosis and Related Bone Diseases www osteo.org 2. International Society for Clinical Densitometry www iscd.org 3. National Osteoporosis Foundation www nof.org Electronically Signed: Romero Childress MD at 12:08 EDT ,
== END | disposition home or self-care (01) ==
LOC: OPBD 12:09
PROVIDERS: PCP Family Medicine; Visit Provider Family Medicine
DX: M85.89 Other specified disorders of bone density and structure, multiple sites (principal)
CPT/HCPCS: 77080

== ENCOUNTER → 2022-04-14 | Outpatient (CLI) | payer MEDICARE, SELFPAY ==
[2022-04-14 13:34] LABS: AST(SGOT) 24 U/L (15-37); Alanine Aminotransfer ALT/SGPT 25 U/L (13-56); Albumin, Serum 3.5 g/dL (3.2-5.0); Alkaline Phosphatase 67 U/L (45-117); Anion Gap 4 (5-15); BUN 21 mg/dL (7-18); BUN/Creat Ratio 26.9 RATIO (10-20); Calcium,Total 9.1 mg/dL (8.5-10.1); Chloride 99 mmol/L (98-107); Creatinine, Serum 0.78 mg/dL (0.55-1.02); EST Glomerular Filtration Rate 75 mL/min (>60); Est Glom Filt Rate - Afr Amer 90 mL/min (>60); Globulin 3.4 g/dL (2.2-4.2); Glucose 92 mg/dL (74-106); Protein, Total 6.9 g/dL (6.4-8.2); Sodium Level 133 mmol/L (136-145)
[2022-04-14 13:37] LABS: Vitamin D,25 Hydroxy 41.9 ng/mL
== END | disposition home or self-care (01) ==
LOC: MFPLAB 11:18
PROVIDERS: PCP Family Medicine; Referring Provider Family Medicine; Visit Provider Family Medicine
DX: M81.0 Age-related osteoporosis without current pathological fracture (principal)
CPT/HCPCS: 36415; 80053; 82306

== ENCOUNTER → 2022-05-12 | Outpatient (CLI) | payer MEDICARE, SELFPAY ==
--- NOTE | 2022-05-12 16:00 | BI_ITS ---
MAMMOGRAPHY - BILATERAL SCREENING REASON FOR EXAM: Female, 81 years old. Routine annual screening examination. PERTINENT HISTORY: Non-contributory. History of melanoma. TECHNIQUE: Digital bilateral breast mani (3D mammographic acquisition) in the CC and MLO projections. 2-D mediolateral oblique (MLO) and craniocaudad (CC) views of both breasts were obtained. CAD: Full Field Digital Mammography with Computer Added Detection was performed. COMPARISON: Comparison is made with prior study dated 10/07/2020 and 05/28/2019. FINDINGS: Breast Composition: The breasts are heterogeneously dense, which may obscure small masses. There are no dominant masses or suspicious calcifications. Stable small benign appearing bilateral axillary lymph nodes. No other significant abnormalities are identified. There has been no significant change since the prior study. BI/SCRN MAMM (CAD)W/MANI BILAT IMPRESSION: Stable bilateral screening mammogram. Yearly follow-up mammogram recommended. (A) ASSESSMENT CATEGORY: BIRADS Category 2: Benign. A letter regarding these results will be sent to the patient by the facility within 30 days. Approximately 10% of breast cancers are not detected by mammography. A normal mammogram should not delay biopsy of a clinically suspicious abnormality. [id number] Electronically Signed: Romero Childress MD at 8:18 EST ,
== END | disposition home or self-care (01) ==
LOC: OPBI 15:59
PROVIDERS: PCP Family Medicine; Visit Provider Obstetrics & Gynecology
DX: Z12.31 Encounter for screening mammogram for malignant neoplasm of breast (principal)
CPT/HCPCS: 77063; 77067

== ENCOUNTER → 2022-06-29 | Outpatient (CLI) | payer MEDICARE, SELFPAY ==
[2022-06-29 18:00] LABS: Absolute Lymphocyte Count 1.13 X10^3/uL (0.83-4.51); Absolute Neutrophil Count 2.7 X10^3/uL (2.0-7.7); Basophil# 0.03 X10^3/uL; Basophil% 0.7 % (0-1); Eosinophil# 0.12 X10^3/uL; Eosinophils% 2.7 % (0-5); Hematocrit 40.4 % (37-47); Hemoglobin 13.9 g/dL (12.0-15.0); Lymphocyte # 1.13 X10^3/ul (0.83-4.51); Lymphocyte % 25.2 % (19-41); Mean Corp Hgb Conc 34.4 g/dL (32-36); Mean Corpuscular Hgb 34.3 pg (27.0-32.0); Mean Corpuscular Volume 99.8 fL (81-99); Mean Platelet Vol. 9.3 fl (6.2-12.0); Monocyte# 0.45 X10^3/uL; NRBC Flagged by Analyzer 0 % (0-5); Neutrophil # 2.74 X10^3/uL (2.7-7.7); Neutrophil % 61.2 % (47-70); Platelet Count 286 K/mm3 (150-450); RBC Distribution Width CV 11.2 % (11.6-14.6); RBC Distribution Width SD 41.1 fl (35.1-43.9); Red Blood Count 4.05 M/mm3 (4.2-5.4); White Blood Count 4.5 K/mm3 (4.4-11.0)
[2022-06-29 18:55] LABS: Vitamin B12 651 pg/mL (211-911); Vitamin D,25 Hydroxy 37.6 ng/mL
[2022-06-29 18:58] LABS: ALB/GLOB Ratio 1.2 RATIO (0.9-2.4); AST(SGOT) 24 U/L (15-37); Alanine Aminotransfer ALT/SGPT 25 U/L (13-56); Albumin, Serum 3.8 g/dL (3.2-5.0); Alkaline Phosphatase 67 U/L (45-117); Anion Gap 9 (5-15); BUN 18 mg/dL (7-18); BUN/Creat Ratio 23.7 RATIO (10-20); Calcium,Total 9.1 mg/dL (8.5-10.1); Chloride 100 mmol/L (98-107); Cholesterol 185 mg/dL (200); Creatinine, Serum 0.76 mg/dL (0.55-1.02); EST Glomerular Filtration Rate 77 mL/min (>60); Est Glom Filt Rate - Afr Amer 93 mL/min (>60); Globulin 3.3 g/dL (2.2-4.2); Glucose 87 mg/dL (74-106); High Density Lipoprotein 67 mg/dL; Potassium 4.4 mmol/L (3.5-5.1); Protein, Total 7.1 g/dL (6.4-8.2); Sodium Level 134 mmol/L (136-145); T4 Free Direct 0.76 ng/dL (0.76-1.46); Thyroid Stim Hormone (TSH) 2.16 uIU/mL (0.358-3.74); Triglycerides 300 mg/dL; Very Low Density Lipoprotein 60 mg/dL (5-40)
== END | disposition home or self-care (01) ==
LOC: MFPLAB 14:51
PROVIDERS: PCP Family Medicine; Visit Provider Family Medicine
DX: E78.5 Hyperlipidemia, unspecified (principal); E55.9 Vitamin D deficiency, unspecified; R53.83 Other fatigue
CPT/HCPCS: 36415; 80053; 80061; 82306; 82607; 84439; 84443; 85025

== ENCOUNTER → 2022-12-28 | Outpatient (CLI) | payer MEDICARE, SELFPAY ==
--- NOTE | 2022-12-28 14:36 | RAD_ITS ---
INDICATION: Pain EXAMINATION/TECHNIQUE: X-RAY - XR Spine Lumbar 2 or 3 Views COMPARISON: Three-phase bone scan March 16, 2013 FINDINGS: VERTEBRAE: There is a moderate degenerative scoliosis centered at L3-4. Preserved vertebral body height. No fracture. There are grade 1 spondylolistheses of L2 on L3, L3 on L4, and L4 on L5. There are degenerative anterior endplate spurs at numerous levels, most prominent at L3-4. Preservation of the normal lumbar lordosis. There are multilevel lumbar facet arthropathies. DISCS: There is multilevel degenerative disc height narrowing. INCLUDED ABDOMEN: Included bowel gas pattern is non-obstructive. Of incidental note, the patient has undergone prior bilateral hip replacements. RAD/Lumbar Spine 2 or 3 Views IMPRESSION: Moderately severe degenerative changes of the lumbar spine, as described. Electronically Signed: Nii Schofield MD at 16:26 EDT Reading Location ID and State: [id number] / Unknown , Service support ,
== END | disposition home or self-care (01) ==
LOC: MTRAD 14:36
PROVIDERS: PCP Family Medicine; Referring Provider Family Medicine; Visit Provider Family Medicine
DX: M54.9 Dorsalgia, unspecified (principal)
CPT/HCPCS: 72100

== ENCOUNTER → 2023-02-02 | Outpatient (CLI) | payer MEDICARE, SELFPAY ==
--- NOTE | 2023-02-02 11:24 | CT_ITS ---
INDICATION: Lower back pain, right sided hip pain. History of laminectomy. EXAMINATION: CT LUMBAR SPINE - CT Spine Lumbar W/O Contrast Injection TECHNIQUE: Helically acquired images were obtained of the lumbar spine. 2D reformats were reviewed. A radiation dose optimization technique was used for this scan. IV Contrast dosage and agent: None. COMPARISON: Lumbar spine x-ray from 12/28/2022. FINDINGS: Laminectomy changes at the L4 level. The vertebral body heights are maintained. No acute fracture or subluxation. Grade 1 anterolisthesis of L3 on L4 and L4 on L5. No traumatic malalignment. Mild S-shaped scoliotic curvature. Bilateral sacroiliac joints are within normal limits. Paraspinal soft tissues are unremarkable. Sigmoid diverticulosis without findings of acute diverticulitis in the partially visualized retroperitoneum. Severe arterial atherosclerotic disease. No acute findings in the visualized retroperitoneum. Moderate to severe multilevel degenerative disc disease and facet arthropathy most prominent at the L3-L4 level. Assessment of the spinal canal is limited without intrathecal contrast. Level by level assessment below: * T12-L1: Suspected central to right paracentral disc herniation superimposed on a disc bulge. Along with facet arthropathy, findings are suspected to contribute to severe spinal stenosis and at least mild to moderate bilateral foraminal narrowing. * L1-L2: Suspected small posterior disc bulge. Along with facet arthropathy, findings are suspected to contribute to at least mild to moderate right foraminal narrowing. No significant spinal stenosis or an osseous basis. * L2-L3: Suspected posterior disc bulge. Along with severe facet arthropathy, findings are suspected to contribute to at least moderate spinal stenosis and moderate bilateral foraminal narrowing. * L3-L4: Suspected posterior disc osteophyte complex. Along with severe facet arthropathy, findings are suspected to contribute to at least moderate to severe spinal stenosis and moderate to severe bilateral foraminal narrowing. * L4-L5: Suspected posterior disc bulge, asymmetric to the left. Along with facet arthropathy, findings are suspected to contribute to at least mild spinal stenosis and mild bilateral foraminal narrowing. * L5-S1: Suspected posterior disc bulge. Along with facet arthropathy, findings are suspected to contribute to at least mild spinal stenosis and mild bilateral foraminal narrowing. CT/Spine Lumbar without Contrast IMPRESSION: 1. No acute findings. 2. Multilevel degenerative disc disease as detailed level by level above. Please note that CT is not a sensitive examination for degenerative disc and spinal canal pathology. MRI is recommended for further assessment if clinically warranted. 3. Sigmoid diverticulosis without findings of acute diverticulitis in the partially visualized retroperitoneum. Electronically Signed: German Kennedy DO at 8:14 EDT ,
--- NOTE | 2023-02-02 11:26 | RAD_ITS ---
STUDY: X-RAY - PELVIS AND BILATERAL HIPS REASON FOR EXAM: Female, 82 years old. Bilateral hip pain. TECHNIQUE: AP view of the pelvis.? 2 views of the right hip, and 2 views of the left hip were obtained. COMPARISON: Left hip x-rays dated August 15, 2014. FINDINGS: There is a non-specific bowel gas pattern. Normal visualized soft tissue structures. Mild arthrosis of both sacroiliac joints. Mild arthrosis of the symphysis pubis. Bilateral total hip arthroplasties with the right being a revision total hip arthroplasty with cerclage wires in the proximal right femur, all unchanged with no complicating features. RAD/Hips B/L min 2 views w/ Pelvis IMPRESSION: Osteopenia with bilateral total hip arthroplasties without complications. Electronically Signed: Damon Cordoba MD at 14:20 EDT ,
== END | disposition home or self-care (01) ==
PROVIDERS: PCP Family Medicine; Referring Provider Anesthesiology Pain Medicine; Visit Provider Anesthesiology Pain Medicine
DX: M96.1 Postlaminectomy syndrome, not elsewhere classified (principal)
CPT/HCPCS: 72131; 73521

== ENCOUNTER → 2023-02-18 | Outpatient (CLI) | payer MEDICARE, SELFPAY ==
[2023-02-18 17:34] LABS: Absolute Lymphocyte Count 1.05 X10^3/uL (0.83-4.51); Absolute Neutrophil Count 4.5 X10^3/uL (2.0-7.7); Basophil# 0.04 X10^3/uL; Basophil% 0.6 % (0-1); Eosinophil# 0.11 X10^3/uL; Eosinophils% 1.7 % (0-5); Hematocrit 40.6 % (37-47); Hemoglobin 13.9 g/dL (12.0-15.0); Lymphocyte # 1.05 X10^3/ul (0.83-4.51); Lymphocyte % 16.4 % (19-41); Mean Corp Hgb Conc 34.2 g/dL (32-36); Mean Corpuscular Hgb 33.8 pg (27.0-32.0); Mean Corpuscular Volume 98.8 fL (81-99); Mean Platelet Vol. 8.3 fl (6.2-12.0); Monocyte# 0.68 X10^3/uL; Monocyte% 10.6 % (0-10); NRBC Flagged by Analyzer 0 % (0-5); Neutrophil # 4.48 X10^3/uL (2.7-7.7); Neutrophil % 70.1 % (47-70); Platelet Count 308 K/mm3 (150-450); RBC Distribution Width CV 11.7 % (11.6-14.6); RBC Distribution Width SD 42.5 fl (35.1-43.9); Red Blood Count 4.11 M/mm3 (4.2-5.4); White Blood Count 6.4 K/mm3 (4.4-11.0)
[2023-02-18 18:13] LABS: Vitamin D,25 Hydroxy 43.7 ng/mL
[2023-02-18 18:25] LABS: ALB/GLOB Ratio 1.1 RATIO (0.9-2.4); AST(SGOT) 20 U/L (15-37); Alanine Aminotransfer ALT/SGPT 25 U/L (13-56); Albumin, Serum 3.8 g/dL (3.2-5.0); Alkaline Phosphatase 62 U/L (45-117); Anion Gap 5 (5-15); BUN 13 mg/dL (7-18); BUN/Creat Ratio 17.3 RATIO (10-20); Calcium,Total 9.1 mg/dL (8.5-10.1); Chloride 96 mmol/L (98-107); Cholesterol 175 mg/dL (200); Creatinine, Serum 0.75 mg/dL (0.55-1.02); EST Glomerular Filtration Rate 78 mL/min (>60); Est Glom Filt Rate - Afr Amer 94 mL/min (>60); Globulin 3.5 g/dL (2.2-4.2); Glucose 112 mg/dL (74-106); High Density Lipoprotein 76 mg/dL; Potassium 4.1 mmol/L (3.5-5.1); Protein, Total 7.3 g/dL (6.4-8.2); Sodium Level 129 mmol/L (136-145); Triglycerides 146 mg/dL; Very Low Density Lipoprotein 29 mg/dL (5-40)
== END | disposition home or self-care (01) ==
LOC: MFPLAB 16:44
PROVIDERS: PCP Family Medicine; Visit Provider Family Medicine
DX: E78.5 Hyperlipidemia, unspecified (principal); E55.9 Vitamin D deficiency, unspecified
CPT/HCPCS: 36415; 80053; 80061; 82306; 85025

== ENCOUNTER → 2023-03-03 | Outpatient (CLI) | payer MEDICARE, SELFPAY ==
[2023-03-03 15:53] LABS: Anion Gap 6 (5-15); BUN 8 mg/dL (7-18); BUN/Creat Ratio 12.8 RATIO (10-20); Calcium,Total 8.8 mg/dL (8.5-10.1); Chloride 97 mmol/L (98-107); Creatinine, Serum 0.62 mg/dL (0.55-1.02); EST Glomerular Filtration Rate 96 mL/min (>60); Est Glom Filt Rate - Afr Amer 117 mL/min (>60); Glucose 83 mg/dL (74-106); Potassium 3.7 mmol/L (3.5-5.1); Sodium Level 130 mmol/L (136-145)
== END | disposition home or self-care (01) ==
LOC: MTLAB 13:44
PROVIDERS: PCP Family Medicine; Visit Provider Family Medicine
DX: E87.1 Hypo-osmolality and hyponatremia (principal)
CPT/HCPCS: 36415; 80048

== ENCOUNTER → 2023-03-16 | Outpatient (CLI) | payer MEDICARE, SELFPAY ==
--- NOTE | 2023-03-16 15:58 | US_ITS ---
STUDY: ULTRASOUND OF THE FEMALE PELVIS - COMPLETE REASON FOR EXAM: Female, 82 years old. AUB LMP: Unknown TECHNIQUE: Transabdominal and Transvaginal TECHNICAL QUALITY: Adequate. COMPARISON: None. FINDINGS: The uterus is anteverted and is in a midline position. The uterus measures cm. Normal uterine cervix. The endometrium measures 4 mm in thickness, and is normal. There is no demonstrated endometrial mass. 6 x 7 x 4 mm echogenic fibroid. Posterior cysts. I.U.D. - The patient does not have an I.U.D. Ovaries not visualized. There is no fluid in the cul-de-sac. The pre void volume of the bladder was 26 ml. Polycystic ovary disease: No. US/Pelvic w/ Transvaginal IMPRESSION: Small Uterine fibroid. Ovaries not visualized. Electronically Signed: René Turcios MD at 18:30 EDT ,
== END | disposition home or self-care (01) ==
LOC: US 15:57
PROVIDERS: PCP Family Medicine; Referring Provider Obstetrics & Gynecology; Visit Provider Obstetrics & Gynecology
DX: N93.9 Abnormal uterine and vaginal bleeding, unspecified (principal)
CPT/HCPCS: 76830; 76856

== ENCOUNTER → 2023-03-17 | Outpatient (CLI) | payer MEDICARE, SELFPAY ==
--- NOTE | 2023-03-17 13:30 | EMB_PTH ---
PATIENT: KENY BAPTISTE LOC: [facility] U#:[id number] AGE/SX: 82/F ROOM: RE03/17/[address]: Dr. Taryn Lee MD : 1940 BED: DIS: 03/17/2023 SPEC #: [id number] RECD: 03/17/23 15:44 STATUS: JUAN M REKelly #: [id number] HANSEL: 03/17/23 13:[address]: Taryn Lee DEPT: SURGICAL PATHOLOGY RECD BY: Allyn Rosas ENTERED: 03/18/23 07:32 SP TYPE: ENDOM BX/C KING DR: Dr. Sukhi Mcclure MD Tissues: Endometrium, NOS Procedures: Surgery Specimen Level IV HEADER OPERATION: Endometrial biopsy PRE-OP DIAGNOSIS: Abnormal uterine bleeding TISSUE SUBMITTED: Endometrial lining MICROSCOPIC DIAGNOSIS Endometrium, biopsy: Simple hyperplasia without atypia. AM:gemma 03/21/2023 MICROSCOPIC DESCRIPTION Slides are reviewed. GROSS DESCRIPTION Received is one container labeled with the patient's name and not further designated. The specimen consists of multiple irregular and mucoid fragments of smith tissue that in aggregate measure 2.0 x 1.5 x 0.1 cm. The specimen is totally submitted in one cassette. / AM:gemma 03/18/2023 TC:5 CPT: 94607
== END | disposition home or self-care (01) ==
LOC: LABSPEC 15:50
PROVIDERS: PCP Family Medicine; Referring Provider Obstetrics & Gynecology; Visit Provider Obstetrics & Gynecology
DX: N85.01 Benign endometrial hyperplasia (principal)
CPT/HCPCS: 88305

== ENCOUNTER 2023-04-01 16:51 | Outpatient (CLI) | payer MEDICARE, SELFPAY ==
[2023-04-01 18:38] LABS: Anion Gap 4 (5-15); BUN 16 mg/dL (7-18); BUN/Creat Ratio 22.3 RATIO (10-20); Calcium,Total 9.1 mg/dL (8.5-10.1); Chloride 100 mmol/L (98-107); Creatinine, Serum 0.72 mg/dL (0.55-1.02); EST Glomerular Filtration Rate 82 mL/min (>60); Est Glom Filt Rate - Afr Amer 100 mL/min (>60); Glucose 97 mg/dL (74-106); Potassium 4.1 mmol/L (3.5-5.1); Sodium Level 134 mmol/L (136-145)
== END 2023-04-01 23:59 | disposition home or self-care (01) ==
LOC: MFPLAB 16:51
PROVIDERS: PCP Family Medicine; Visit Provider Family Medicine
DX: E87.1 Hypo-osmolality and hyponatremia (principal)
CPT/HCPCS: 36415; 80048

== ENCOUNTER → 2023-04-14 | Outpatient (CLI) | payer MEDICARE, SELFPAY ==
[2023-04-14 13:19] LABS: Anion Gap 7 (5-15); BUN 16 mg/dL (7-18); BUN/Creat Ratio 20.9 RATIO (10-20); Calcium,Total 9.3 mg/dL (8.5-10.1); Chloride 95 mmol/L (98-107); Creatinine, Serum 0.77 mg/dL (0.55-1.02); EST Glomerular Filtration Rate 76 mL/min (>60); Est Glom Filt Rate - Afr Amer 92 mL/min (>60); Glucose 98 mg/dL (74-106); Sodium Level 131 mmol/L (136-145)
[2023-04-14 13:24] LABS: Thyroid Stim Hormone (TSH) 2.23 uIU/mL (0.358-3.74)
== END | disposition home or self-care (01) ==
LOC: LAB 12:20
PROVIDERS: PCP Family Medicine; Referring Provider Internal Medicine Cardiovascular Disease; Visit Provider Family Medicine
DX: E78.5 Hyperlipidemia, unspecified (principal); I47.10 Supraventricular tachycardia, unspecified; R42 Dizziness and giddiness; R26.81 Unsteadiness on feet; E87.1 Hypo-osmolality and hyponatremia
CPT/HCPCS: 36415; 80048; 84443

== ENCOUNTER → 2023-04-21 | Outpatient (CLI) | payer MEDICARE, SELFPAY ==
[2023-04-21 13:36] LABS: Urine Sodium 103 mmol/L (Not Establ.)
[2023-04-21 13:57] LABS: Osmolality, Urine 625 mOsm/KG
== END | disposition home or self-care (01) ==
LOC: LABSPEC 10:52
PROVIDERS: PCP Family Medicine; Visit Provider Internal Medicine Nephrology
DX: E87.1 Hypo-osmolality and hyponatremia (principal)
CPT/HCPCS: 83935; 84300

== ENCOUNTER → 2023-05-24 | Outpatient (CLI) | payer MEDICARE, SELFPAY ==
--- NOTE | 2023-05-24 14:00 | BI_ITS ---
MAMMOGRAPHY - BILATERAL SCREENING REASON FOR EXAM: Female, 82 years old. Routine annual screening examination. PERTINENT HISTORY: Non-contributory. Remote right breast biopsy. TECHNIQUE: Digital bilateral breast mani (3D mammographic acquisition) in the CC and MLO projections. 2-D mediolateral oblique (MLO) and craniocaudad (CC) views of both breasts were obtained. CAD: Full Field Digital Mammography with Computer Added Detection was performed. COMPARISON: Comparison is made with prior study June 11, 2022 and October 07, 2020. FINDINGS: Breast Composition: The breasts are heterogeneously dense, which may obscure small masses. There are no dominant masses or suspicious calcifications. Stable small benign-appearing bilateral axillary lymph nodes. No other significant abnormalities are identified. There has been no significant change since the prior study. BI/SCRN MAMM (CAD)W/MANI BILAT IMPRESSION: Stable bilateral screening mammogram. Yearly follow-up mammogram recommended. (A) ASSESSMENT CATEGORY: BIRADS Category 2: Benign. A letter regarding these results will be sent to the patient by the facility within 30 days. Approximately 10% of breast cancers are not detected by mammography. A normal mammogram should not delay biopsy of a clinically suspicious abnormality. [id number] Electronically Signed: Romero Childress MD at 15:12 EST ,
== END | disposition home or self-care (01) ==
LOC: OPBI 13:58
PROVIDERS: PCP Family Medicine; Referring Provider Obstetrics & Gynecology; Visit Provider Obstetrics & Gynecology
DX: Z12.31 Encounter for screening mammogram for malignant neoplasm of breast (principal)
CPT/HCPCS: 77063; 77067

== ENCOUNTER → 2023-05-25 | Outpatient (CLI) | payer MEDICARE, SELFPAY ==
--- NOTE | 2023-05-25 16:26 | ST.MBS ---
Modified Barium Swallow Patient Information Study Date: 05/25/23 Study Time: 13:00 Direct Billable Minutes: 97 Total Minutes procedure & reportin Diagnosis: Dysphagia R13.10 Referring Physician: Sukhi Mcclure Reason for Referral: Objectively assess swallow function, assess risk for aspiration, and determine recommendations for least restrictive diet textures and compensatory strategies to improve safety of swallow. Medical History: PMH: GERD, HTN, Diastolic dysfunction without heart failure, Carotid stenosis, Epilepsy, Cancer (skin) (SEE EMR for full PMH). The patient reports occasional sensation of food or pills stuck in her throat (~2-3X/week). She will at times expectorate what feels caught, but often times she can clear the sensation of retention with drinks or even other foods. She reports no history of choking. Her PCP referred her for MBSS to further assess concerns for swallowing difficulty. Current Diet Ordered: Regular textures / Thin liquids Dentition: Natural Teeth Mental Status: WNL Respiratory Status: Oxygenating on Room Air Penetration-Aspiration Scale Penetration-Aspiration Scale: OBJECTIVE ASSESSMENT OF SWALLOW FUNCTION (QUANTITATIVE ? PER TRIAL): PENETRATION / ASPIRATION SCALE (AMARAL): 1 = does not enter airway 2 = enters airway/above vocal folds/ejected 3 = enters airway/above vocal folds/not ejected 4 = enters airway/contacts vocal folds/ejected 5 = enters airway/contacts vocal folds/not ejected 6 = enters airway/below vocal folds/ejected 7 = enters airway/below vocal folds/not ejected despite effort 8 = enters airway/below vocal folds/no effort VIDEOFLOROSCOPIC SCALE SCORE (AMARAL): Grade I = aspiration of material that has penetrated into the laryngeal vestibule, intact cough reflex Grade II = aspiration < 10 % of the bolus, intact cough reflex Grade III = aspiration of < 10 % of the bolus, reduced cough reflex or aspiration of > 10 % of the bolus, intact cough reflex Grade IV = aspiration of > 10 % of the bolus, reduced cough reflex Penetration-Aspiration Scale Score Thin Liquid via teaspoon: Result: 1= does not enter airway Thin Liquid via teaspoon Trial 2: Result: 1= does not enter airway Thin Liquid via large single sip: cup: Result: 7= enters airways/below vocal folds/not ejected despite effort Comment: Reflexive throat clear cleared contrast from the trachea, thus preventing aspiration; however, contrast did remain in the laryngeal vestibule. Thin Liquid via small single sip: cup: Result: 5= enters airways/contacts vocal folds/not ejected Comment: Reflexive throat clear [place] Thick Liquid via small single sip: cup: Result: 1= does not enter airway Pudding via teaspoon: Result: 1= does not enter airway Comment: Esophageal screen - Slowed emptying of barium through the lower esophageal sphincter with min retrograde flow remaining well below the upper esophageal sphincter. Mild retention in lower esophagus at end of screening. 1/2 Cookie: Result: 1= does not enter airway Thin Liquid via single sip: straw: Result: 1= does not enter airway Thin Liquid via single sip: straw Trial 2: Result: 1= does not enter airway Comment: Audible swallow Thin Liquid via small single sip: cup Effortful swallow: Result: 1= does not enter airway Barium Tablet: Result: 1= does not enter airway Comment: 2 liquid washes (with water) to clear oral cavity, [employer] cued effortful swallows Oral Phase Labial Seal: No Labial Escape Tongue Control During Bolus Hold: Posterior escape of less than half of bolus Bolus Preparation/Mastication: Slow prolonged chewing/mashing with complete recollection Bolus Transport/Lingual Motion: Delayed initiation of tongue motion Oral Residue: Residue collection on oral structures Pharyngeal Phase Initiation of Pharyngeal Swallow: Bolus head in pyriforms Soft Palate Elevation: No bolus between soft palate and pharyngeal wall Laryngeal Elevation: Partial superior movement thyroid cart/partial apprx aryt-epig petiole Anterior Hyoid Excursion: Complete anterior movement Epiglottic Movement: Partial inversion Laryngeal Vestibule Closure at Height of Swallow: Incomplete; narrow column of air/contrast in laryngeal vestibule Pharyngeal Stripping Wave: Present - diminished Pharyngoesophageal Segment Opening: Complete distension and complete duration; no obstruction of flow Tongue Base Retraction: Narrow column of contrast between tongue base & post. pharyngeal wall Pharyngeal Residue: Collection of residue within or on pharyngeal structures Esophageal Phase Esophageal Clearance: Esophageal retention w/ retrograde flow below pharyngoesophageal seg. Diagnosis/Impression Diagnosis: Mild oropharyngeal dysphagia R13.12 Impression: The oral phase is primarily marked by... -Decreased bolus control with <1/2 of the bolus spilling posteriorly to the pyriforms prior to swallow onset observed with thin liquids especially. -Slowed, but adequate mastication. -Mild oral residue, which the patient cleared with a second swallow as needed. The pharyngeal phase is primarily marked by... -Mildly decreased airway closure during the swallow due to partial epiglottic inversion and decreased laryngeal elevation. -Mildly decreased tongue base retraction and pharyngeal stripping wave with resulting mild pharyngeal residues in the vallecula after the swallow, most notable with cookie and pudding. Liquid wash helped to clear residues. -The patient briefly aspirated thin liquid by cup with reflexive throat clear that effectively cleared contrast from the trachea, but not from the laryngeal vestibule. Deep laryngeal penetration of small sip via cup to the vocal folds without full ejection. Effortful swallows were most effective in decreasing laryngeal penetration and risk for aspiration. The esophageal phase is primarily marked by... -Small CP-bar at the level of C5 that did not appear to impact bolus clearance through the upper esophageal sphincter. -Slowed emptying of pudding through the lower esophageal sphincter with retrograde flow and mild retention in the lower esophagus at the end of the screening. Recommendations Diet: Regular Textures and Thin Liquids Compensatory Strategies: Small Bites (Chew thoroughly), Small Sips (Effortful/hard swallows with liquids, intermittent cough and re-swallow), Slow Rate, Multiple Swallows, Alternate bites/solids and sips/liquids, Sitting upright and Remain sitting upright for 30 minutes after PO intake Recommend Repeat Modified Barium Swallow: TBD (Only if concerns for increased s/s of aspiration) Need for Skilled Speech Therapy Services: Yes Comment: Will recommend the patient for outpatient dysphagia therapy to address deficits in oropharyngeal swallow function. Will recommend the patient for oropharyngeal strengthening to improve tongue base retraction, laryngeal elevation, swallow onset, and pharyngeal contraction (Susanne, Adrian, Effortful breath hold and swallow, Effortful swallow). The patient would benefit from thorough education regarding recommended diet textures and compensatory strategies. Recommended Referrals: GI Consult (If s/s of reflux/regurgitation occurs despite use of strategies, please consider GI consult.) Education Completed: 1. Described result of evaluation. and 2. Pt understands evaluation & agrees with goals and treatment plan. Status Active ST Patient: Active Contact Information [facility] Speech Therapy:: Tammy Ford M.A. [facility] Speech-Language Pathologist [facility] [address] [place] [address] [phone]
== END | disposition home or self-care (01) ==
PROVIDERS: PCP Family Medicine; Referring Provider Family Medicine; Visit Provider Family Medicine
DX: R13.10 Dysphagia, unspecified (principal)
CPT/HCPCS: 74230; 92611

== ENCOUNTER → 2023-06-23 | Outpatient (CLI) | payer MEDICARE, SELFPAY ==
[2023-06-23 16:01] LABS: BUN 18 mg/dL (7-18); BUN/Creat Ratio 22.4 RATIO (10-20); Calcium,Total 9.1 mg/dL (8.5-10.1); Chloride 100 mmol/L (98-107); EST Glomerular Filtration Rate 72 mL/min (>60); Est Glom Filt Rate - Afr Amer 87 mL/min (>60); Glucose 102 mg/dL (74-106); Phosphorus 3.8 mg/dL (2.5-4.9); Potassium 4.2 mmol/L (3.5-5.1); Sodium Level 134 mmol/L (136-145)
== END | disposition home or self-care (01) ==
LOC: MTLAB 13:22
PROVIDERS: PCP Family Medicine; Referring Provider Internal Medicine Nephrology; Visit Provider Internal Medicine Nephrology
DX: E87.1 Hypo-osmolality and hyponatremia (principal)
CPT/HCPCS: 36415; 80069

== ENCOUNTER 2023-07-06 14:00 | Outpatient (RCR) | payer MEDICARE, SELFPAY ==
--- NOTE | 2023-06-16 13:52 | ST ---
[facility] Speech Pathology [address] [place] [address] Modified Barium Swallow Study MR#: [id number] Acct: [id number] Name: KENY BAPTISTE Rep #: [id number] : [id number] 82 From: Tammy Ford M.A., [facility] Modified Barium Swallow Patient Information Study Date: 05/25/23 Study Time: 13:00 Direct Billable Minutes: 97 Total Minutes procedure & reportin Diagnosis: Dysphagia R13.10 Referring Physician: Sukhi Mcclure Reason for Referral: Objectively assess swallow function, assess risk for aspiration, and determine recommendations for least restrictive diet textures and compensatory strategies to improve safety of swallow. Medical History: PMH: GERD, HTN, Diastolic dysfunction without heart failure, Carotid stenosis, Epilepsy, Cancer (skin) (SEE EMR for full PMH). The patient reports occasional sensation of food or pills stuck in her throat (~2-3X/week). She will at times expectorate what feels caught, but often times she can clear the sensation of retention with drinks or even other foods. She reports no history of choking. Her PCP referred her for MBSS to further assess concerns for swallowing difficulty. Current Diet Ordered: Regular textures / Thin liquids Dentition: Natural Teeth Mental Status: WNL Respiratory Status: Oxygenating on Room Air Penetration-Aspiration Scale Penetration-Aspiration Scale: OBJECTIVE ASSESSMENT OF SWALLOW FUNCTION (QUANTITATIVE ? PER TRIAL): PENETRATION / ASPIRATION SCALE (AMARAL): 1 = does not enter airway 2 = enters airway/above vocal folds/ejected 3 = enters airway/above vocal folds/not ejected 4 = enters airway/contacts vocal folds/ejected 5 = enters airway/contacts vocal folds/not ejected 6 = enters airway/below vocal folds/ejected 7 = enters airway/below vocal folds/not ejected despite effort 8 = enters airway/below vocal folds/no effort VIDEOFLOROSCOPIC SCALE SCORE (AMARAL): Grade I = aspiration of material that has penetrated into the laryngeal vestibule, intact cough reflex Grade II = aspiration < 10 % of the bolus, intact cough reflex Grade III = aspiration of < 10 % of the bolus, reduced cough reflex or aspiration of > 10 % of the bolus, intact cough reflex Grade IV = aspiration of > 10 % of the bolus, reduced cough reflex Penetration-Aspiration Scale Score Thin Liquid via teaspoon: Result: 1= does not enter airway Thin Liquid via teaspoon Trial 2: Result: 1= does not enter airway Thin Liquid via large single sip: cup: Result: 7= enters airways/below vocal folds/not ejected despite effort Comment: Reflexive throat clear cleared contrast from the trachea, thus preventing aspiration; however, contrast did remain in the laryngeal vestibule. Thin Liquid via small single sip: cup: Result: 5= enters airways/contacts vocal folds/not ejected Comment: Reflexive throat clear [place] Thick Liquid via small single sip: cup: Result: 1= does not enter airway Pudding via teaspoon: Result: 1= does not enter airway Comment: Esophageal screen - Slowed emptying of barium through the lower esophageal sphincter with min retrograde flow remaining well below the upper esophageal sphincter. Mild retention in lower esophagus at end of screening. 1/2 Cookie: Result: 1= does not enter airway Thin Liquid via single sip: straw: Result: 1= does not enter airway Thin Liquid via single sip: straw Trial 2: Result: 1= does not enter airway Comment: Audible swallow Thin Liquid via small single sip: cup Effortful swallow: Result: 1= does not enter airway Barium Tablet: Result: 1= does not enter airway Comment: 2 liquid washes (with water) to clear oral cavity, [employer] cued effortful swallows Oral Phase Labial Seal: No Labial Escape Tongue Control During Bolus Hold: Posterior escape of less than half of bolus Bolus Preparation/Mastication: Slow prolonged chewing/mashing with complete recollection Bolus Transport/Lingual Motion: Delayed initiation of tongue motion Oral Residue: Residue collection on oral structures Pharyngeal Phase Initiation of Pharyngeal Swallow: Bolus head in pyriforms Soft Palate Elevation: No bolus between soft palate and pharyngeal wall Laryngeal Elevation: Partial superior movement thyroid cart/partial apprx aryt-epig petiole Anterior Hyoid Excursion: Complete anterior movement Epiglottic Movement: Partial inversion Laryngeal Vestibule Closure at Height of Swallow: Incomplete; narrow column of air/contrast in laryngeal vestibule Pharyngeal Stripping Wave: Present - diminished Pharyngoesophageal Segment Opening: Complete distension and complete duration; no obstruction of flow Tongue Base Retraction: Narrow column of contrast between tongue base & post. pharyngeal wall Pharyngeal Residue: Collection of residue within or on pharyngeal structures Esophageal Phase Esophageal Clearance: Esophageal retention w/ retrograde flow below pharyngoesophageal seg. Diagnosis/Impression Diagnosis: Mild oropharyngeal dysphagia R13.12 Impression: The oral phase is primarily marked by... -Decreased bolus control with <1/2 of the bolus spilling posteriorly to the pyriforms prior to swallow onset observed with thin liquids especially. -Slowed, but adequate mastication. -Mild oral residue, which the patient cleared with a second swallow as needed. The pharyngeal phase is primarily marked by... -Mildly decreased airway closure during the swallow due to partial epiglottic inversion and decreased laryngeal elevation. -Mildly decreased tongue base retraction and pharyngeal stripping wave with resulting mild pharyngeal residues in the vallecula after the swallow, most notable with cookie and pudding. Liquid wash helped to clear residues. -The patient briefly aspirated thin liquid by cup with reflexive throat clear that effectively cleared contrast from the trachea, but not from the laryngeal vestibule. Deep laryngeal penetration of small sip via cup to the vocal folds without full ejection. Effortful swallows were most effective in decreasing laryngeal penetration and risk for aspiration. The esophageal phase is primarily marked by... -Small CP-bar at the level of C5 that did not appear to impact bolus clearance through the upper esophageal sphincter. -Slowed emptying of pudding through the lower esophageal sphincter with retrograde flow and mild retention in the lower esophagus at the end of the screening. Recommendations Diet: Regular Textures and Thin Liquids Compensatory Strategies: Small Bites (Chew thoroughly), Small Sips (Effortful/hard swallows with liquids, intermittent cough and re-swallow), Slow Rate, Multiple Swallows, Alternate bites/solids and sips/liquids, Sitting upright and Remain sitting upright for 30 minutes after PO intake Recommend Repeat Modified Barium Swallow: TBD (Only if concerns for increased s/s of aspiration) Need for Skilled Speech Therapy Services: Yes Comment: Will recommend the patient for outpatient dysphagia therapy to address deficits in oropharyngeal swallow function. Will recommend the patient for oropharyngeal strengthening to improve tongue base retraction, laryngeal elevation, swallow onset, and pharyngeal contraction (SusanneSaud jaffesohn, Effortful breath hold and swallow, Effortful swallow). The patient would benefit from thorough education regarding recommended diet textures and compensatory strategies. Recommended Referrals: GI Consult (If s/s of reflux/regurgitation occurs despite use of strategies, please consider GI consult.) Education Completed: 1. Described result of evaluation. and 2. Pt understands evaluation & agrees with goals and treatment plan. Status Active ST Patient: Active Contact Information [facility] Speech Therapy:: Tammy Ford M.A. [employer] Speech-Language Pathologist [place] [address] [place] [address] [email or web address] [phone] 05/26/23 0856 <Electronically signed by Tammy Ford M.A., [employer]> Date/Time Tammy Ford M.A., [employer] Co-Signature Required for all Medicare patients Date/Time Co-Signature CC: ~
--- NOTE | 2023-06-16 14:01 | HP.SP.EVAL ---
Visit History Visit Info Date of Eval: 06/16/23 Visit: 1 Jar Filler: SHERIF History Attending Doctor: Referring Doctor: Reason for Referral: OROPHAGYNGEAL DYSPHAGIA / RX HERE Previous speech therapy: No Results: Katrina is an 83-year-old woman who was seen at [facility] for a dysphagia evaluation. Pt was accompanied by her . Pt lives at home with their . Pt completed an MBSS to objectively assess their swallow function. Pt was referred by their doctor for an MBSS due to frequent throat clearing during meals. Pt was previous on a regular diet with thin liquids. The MBSS showed that the pt presents with a mild oropharyngeal dysphagia characterized by premature spillage to the pyriformis, penetration of thin liquids, decreased laryngeal elevation. Pt benefited from small sips & bites, alt. sips & bites, slow rate compensatory strategies on the MBSS. A diet of regular with thin liquids and tx was recommended. Medications related to this diagnosis: Medication for GERD Smoking Status: Never smoker Diagnosis Diagnosis: oropharyngeal dysphagia Pain Is pain an issue with your current prescribed condition?: No Personal Preferred language: Welsh Patient Allergies Allergies Allergies: Allergies codeine Adverse Reaction (Mild, Verified 04/14/23 11:35) Vomiting meperidine HCl [From Demerol] Adverse Reaction (Mild, Verified 04/14/23 11:35) Nausea morphine Adverse Reaction (Mild, Verified 04/14/23 11:35) Vomiting ofloxacin [From Floxin] Adverse Reaction (Mild, Verified 04/14/23 11:35) Other sulfamethoxazole [From Bactrim] Adverse Reaction (Mild, Verified 04/14/23 11:35) Nausea sumatriptan [From Imitrex] Adverse Reaction (Mild, Verified 04/14/23 11:35) Other sumatriptan succinate [From Imitrex] Adverse Reaction (Mild, Verified 04/14/23 11:35) Other trimethoprim [From Bactrim] Adverse Reaction (Mild, Verified 04/14/23 11:35) Nausea Subjective Dysphagia Symptoms Reported Symptoms/Problems with: Coughing, Difficulty Swallowing Pills and Weight Loss Current Diet Solids Current Diet: Regular Other: avoids acidic foods Current Diet Liquids Current Liquids: Thin Objective Dysphagia Thin Liquids Administred via: Cup Oral Transit: WNL Cough: throat clear Pharyngeal phase: laryngeal elevation mildly restricted slow initiation Patient Report: some throat clearing after 3oz drink. Pureed Administered via: Spoon Oral Transit: WNL Bolus clearance: fully cleared Gagging: No Cough: none observed/unable to assess Pharyngeal phase: immediate laryngeal elevation Comments: apple sauce Soft & Bite sized (Mechanical) Administered via: Spoon Oral Transit: WNL Bolus clearance: fully cleared Cough: none observed/unable to assess Pharyngeal phase: immediate laryngeal elevation Comments: peaches in liquid Regular Oral Preparation: WNL Oral Transit: WNL Bolus clearance: some clearance/residue Gagging: No Cough: none observed/unable to assess Pharyngeal phase: immediate laryngeal elevation Patient Report: min residue cleared by a liquid wash Comments: popcorn. Impact Impact on Safety & Functioning: Risk for Aspiration Comments: Completed oral motor exercises for swallowing with pt re: Masko, Base of tongue, Effortful swallow, Fritz, Supra supraglottic swallow Recommendations Modified Barium Swallow/Cookie Swallow Recommended: No Swallowing Treatment: Yes Diet Texture Recommendations Solids: Regular (Level 7) Safety Saftey Precautions/Swallowing Recommendations (Check all that Apply): Needs Verbal Cues to Use Recommended Strategies, Upright Position at Least 30 Minutes After Meals, Small Sips & Bites when Eating and Alternate Liquids & Solids Results Swallowing Within Normal Limits: No Swallowing Diagnosis: Oral Phase Dysphagia (R13.11) Severity: Mild Modified Barium Results Hx If Applicable Enter into a NOTE MBS Report Entered: Yes MBS Results (from prior exam): 06/16/23 13:52 Speech Therapy by Tammy Bravo [facility] Speech Pathology [address] [place] [address] Modified Barium Swallow Study MR#: [id number] Acct: [id number] Name: KATRINA BAPTISTE Rep #: [id number] : [id number] From: Tammy Ford M.A. [facility]-ENGINEERING DOCUMENTATION SPECIALIST Modified Barium Swallow Patient Information Study Date: 05/25/23 Study Time: 13:00 Direct Billable Minutes: 97 Total Minutes procedure & reportin Diagnosis: Dysphagia R13.10 Referring Physician: Sukhi Mcclure Reason for Referral: Objectively assess swallow function, assess risk for aspiration, and determine recommendations for least restrictive diet textures and compensatory strategies to improve safety of swallow. Medical History: PMH: GERD, HTN, Diastolic dysfunction without heart failure, Carotid stenosis, Epilepsy, Cancer (skin) (SEE EMR for full PMH). The patient reports occasional sensation of food or pills stuck in her throat (~2-3X/week). She will at times expectorate what feels caught, but often times she can clear the sensation of retention with drinks or even other foods. She reports no history of choking. Her PCP referred her for MBSS to further assess concerns for swallowing difficulty. Current Diet Ordered: Regular textures / Thin liquids Dentition: Natural Teeth Mental Status: WNL Respiratory Status: Oxygenating on Room Air Penetration-Aspiration Scale Penetration-Aspiration Scale: OBJECTIVE ASSESSMENT OF SWALLOW FUNCTION (QUANTITATIVE ? PER TRIAL): PENETRATION / ASPIRATION SCALE (AMARAL): 1 = does not enter airway 2 = enters airway/above vocal folds/ejected 3 = enters airway/above vocal folds/not ejected 4 = enters airway/contacts vocal folds/ejected 5 = enters airway/contacts vocal folds/not ejected 6 = enters airway/below vocal folds/ejected 7 = enters airway/below vocal folds/not ejected despite effort 8 = enters airway/below vocal folds/no effort VIDEOFLOROSCOPIC SCALE SCORE (AMARAL): Grade I = aspiration of material that has penetrated into the laryngeal vestibule, intact cough reflex Grade II = aspiration < 10 % of the bolus, intact cough reflex Grade III = aspiration of < 10 % of the bolus, reduced cough reflex or aspiration of > 10 % of the bolus, intact cough reflex Grade IV = aspiration of > 10 % of the bolus, reduced cough reflex Penetration-Aspiration Scale Score Thin Liquid via teaspoon: Result: 1= does not enter airway Thin Liquid via teaspoon Trial 2: Result: 1= does not enter airway Thin Liquid via large single sip: cup: Result: 7= enters airways/below vocal folds/not ejected despite effort Comment: Reflexive throat clear cleared contrast from the trachea, thus preventing aspiration; however, contrast did remain in the laryngeal vestibule. Thin Liquid via small single sip: cup: Result: 5= enters airways/contacts vocal folds/not ejected Comment: Reflexive throat clear [place] Thick Liquid via small single sip: cup: Result: 1= does not enter airway Pudding via teaspoon: Result: 1= does not enter airway Comment: Esophageal screen - Slowed emptying of barium through the lower esophageal sphincter with min retrograde flow remaining well below the upper esophageal sphincter. Mild retention in lower esophagus at end of screening. 1/2 Cookie: Result: 1= does not enter airway Thin Liquid via single sip: straw: Result: 1= does not enter airway Thin Liquid via single sip: straw Trial 2: Result: 1= does not enter airway Comment: Audible swallow Thin Liquid via small single sip: cup Effortful swallow: Result: 1= does not enter airway Barium Tablet: Result: 1= does not enter airway Comment: 2 liquid washes (with water) to clear oral cavity, ENGINEERING DOCUMENTATION SPECIALIST cued effortful swallows Oral Phase Labial Seal: No Labial Escape Tongue Control During Bolus Hold: Posterior escape of less than half of bolus Bolus Preparation/Mastication: Slow prolonged chewing/mashing with complete recollection Bolus Transport/Lingual Motion: Delayed initiation of tongue motion Oral Residue: Residue collection on oral structures Pharyngeal Phase Initiation of Pharyngeal Swallow: Bolus head in pyriforms Soft Palate Elevation: No bolus between soft palate and pharyngeal wall Laryngeal Elevation: Partial superior movement thyroid cart/partial apprx aryt-epig petiole Anterior Hyoid Excursion: Complete anterior movement Epiglottic Movement: Partial inversion Laryngeal Vestibule Closure at Height of Swallow: Incomplete; narrow column of air/contrast in laryngeal vestibule Pharyngeal Stripping Wave: Present - diminished Pharyngoesophageal Segment Opening: Complete distension and complete duration; no obstruction of flow Tongue Base Retraction: Narrow column of contrast between tongue base & post. pharyngeal wall Pharyngeal Residue: Collection of residue within or on pharyngeal structures Esophageal Phase Esophageal Clearance: Esophageal retention w/ retrograde flow below pharyngoesophageal seg. Diagnosis/Impression Diagnosis: Mild oropharyngeal dysphagia R13.12 Impression: The oral phase is primarily marked by... -Decreased bolus control with <1/2 of the bolus spilling posteriorly to the pyriforms prior to swallow onset observed with thin liquids especially. -Slowed, but adequate mastication. -Mild oral residue, which the patient cleared with a second swallow as needed. The pharyngeal phase is primarily marked by... -Mildly decreased airway closure during the swallow due to partial epiglottic inversion and decreased laryngeal elevation. -Mildly decreased tongue base retraction and pharyngeal stripping wave with resulting mild pharyngeal residues in the vallecula after the swallow, most notable with cookie and pudding. Liquid wash helped to clear residues. -The patient briefly aspirated thin liquid by cup with reflexive throat clear that effectively cleared contrast from the trachea, but not from the laryngeal vestibule. Deep laryngeal penetration of small sip via cup to the vocal folds without full ejection. Effortful swallows were most effective in decreasing laryngeal penetration and risk for aspiration. The esophageal phase is primarily marked by... -Small CP-bar at the level of C5 that did not appear to impact bolus clearance through the upper esophageal sphincter. -Slowed emptying of pudding through the lower esophageal sphincter with retrograde flow and mild retention in the lower esophagus at the end of the screening. Recommendations Diet: Regular Textures and Thin Liquids Compensatory Strategies: Small Bites (Chew thoroughly), Small Sips (Effortful/hard swallows with liquids, intermittent cough and re-swallow), Slow Rate, Multiple Swallows, Alternate bites/solids and sips/liquids, Sitting upright and Remain sitting upright for 30 minutes after PO intake Recommend Repeat Modified Barium Swallow: TBD (Only if concerns for increased s/s of aspiration) Need for Skilled Speech Therapy Services: Yes Comment: Will recommend the patient for outpatient dysphagia therapy to address deficits in oropharyngeal swallow function. Will recommend the patient for oropharyngeal strengthening to improve tongue base retraction, laryngeal elevation, swallow onset, and pharyngeal contraction (Saud Sk[place], Effortful breath hold and swallow, Effortful swallow). The patient would benefit from thorough education regarding recommended diet textures and compensatory strategies. Recommended Referrals: GI Consult (If s/s of reflux/regurgitation occurs despite use of strategies, please consider GI consult.) Education Completed: 1. Described result of evaluation. and 2. Pt understands evaluation & agrees with goals and treatment plan. Status Active ST Patient: Active Contact Information [facility] Speech Therapy:: Tammy Ford M.A. CCC-ENGINEERING DOCUMENTATION SPECIALIST Speech-Language Pathologist [facility] [address] [facility] [place] [address] [email or web address] [phone] 05/26/23 [id number] <Electronically signed by Tammy Ford M.A., CCC-ENGINEERING DOCUMENTATION SPECIALIST> Date/Time Tammy Ford M.A., CCC-ENGINEERING DOCUMENTATION SPECIALIST Co-Signature Required for all Medicare patients Date/Time Co-Signature CC: ~ Initialized on 06/16/23 13:52 - END OF NOTE Reference: Neuro-QoL instrument Radiation Oncology Patient Plan Plan Plan: Will rx Pt for skilled outpatient tx to address deficits in oropharyngeal dysphagia. Pt would benefit from training and education re: diet tolerance checks, compensatory strategies and swallowing exercises to aid in oropharyngeal strengthening. Without skilled intervention, Pt is at risk for consuming a restrictive diet putting her at risk for aspiration pneumonia and atrophy of laryngeal musculature Recommendations MBS: No Treatment Warranted: Yes Treatment Warranted: Dysphagia Progress Prognosis: Excellent Frequency Frequency: Every Other Week Duration: 2 Months Goals that are Established Determination:: Goals will be added/modified as deemed necessary and appropriate. Therapy will be discontinued when results of re-evaluation indicate therapy is no longer needed or lack of progress has been documented. Goal #1-5 Goal #1: Pt will complete oropharyngeal exercises (base of tongue, masko, fritz, supra supraglottic swallow, effortful swallow) for 5-10 reps, 2-3x/day independently to improve tongue base retraction, PES opening/distention, and hyolaryngeal elevation and excursion as measured by pt & caregiver compliance reports over 3 sessions. Goal #2: Pt will utilize compensatory strategies (small sips & bites, slow rate, slt. sips & bites, upright for 30 mins, min. disstractions) and tolerate least restrictive diet with no overt s/s of aspiration/penetration to aid in safe consumption of solid/liquids independently during bolus trials given up to min cues during measured sessions. Education Patient has Indicated that the Following Identified Educational Needs: None The Patient has indicated that they have no educational or learning abilities that may effect their care.: Yes Patient Instruction Patient Education: Diagnosis, Treatment Plan and Goals Person Taught: Patient and Family Teaching Method: Discussion and Demonstration Response to teaching: Verbalize understanding
== END 2023-07-06 19:00 | disposition home or self-care (01) ==
LOC: SP 14:00
PROVIDERS: PCP Family Medicine; Referring Provider Family Medicine; Visit Provider Family Medicine
DX: R13.12 Dysphagia, oropharyngeal phase (principal)
CPT/HCPCS: 92507; 92610

== ENCOUNTER → 2023-07-22 | Outpatient (CLI) | payer MEDICARE, SELFPAY ==
--- OUTSIDE RECORDS SUMMARY | 2023-07-22 16:50 | XMS RPT_ITS | CCD ---
Author Name Unknown Address [address] [place] [address] Organization [facility] Care Team Providers Care Yardage Caller Name Role Phone Taryn Lee MD Unavailable [phone] Magalys Agustin Primary Care Provider [phone] Magalys Agustin Primary Care Provider Magalys Agustin Primary Care Provider Magalys Agustin MD Primary Care Provider MAGALYS AGUSTIN Primary Care Unavailable VICENTA CHIRINOS Referring Unavailable O'SHAKIRA, BRANDON Attending Unavailable MAGALYS AGUSTIN Primary Care Unavailable VICENTA CHIRINOS Referring Unavailable O'SHAKIRA, BRANDON Attending Unavailable VICENTA CHIRINOS Referring Unavailable O'SHAKIRA, BRANDON Attending Unavailable MAGALYS AGUSTIN Primary Care Unavailable O'SHAKIRA, BRANDON Attending Unavailable O'SHAKIRA, BRANDON Referring Unavailable MAGALYS AGUSTIN Primary Care Unavailable MAGALYS AGUSTIN Primary Care Unavailable ALEX SHAFFER JR Attending Unavailable VICENTA CHIRINOS Referring Unavailable MAGALYS AGUSTIN Primary Care Unavailable MAGALYS AGUSTIN Primary Care Unavailable ALEX SHAFFER JR Referring Unavailable MAGALYS AGUSTIN Primary Care Unavailable ALEX SHAFFER JR Referring Unavailable MAGALYS AGUSTIN Primary Care Unavailable CARIN EDDY Attending Unavailable ALEX SHAFFER JR Referring Unavailable VICENTA CHIRINOS Attending Unavailable MAGALYS AGUSTIN Primary Care Unavailable LIAT, VICENTA Referring Unavailable SCHMAGALYS GIBBONS Primary Care Unavailable VICENTA CHIRINOS Referring Unavailable MAGALYS AGUSTIN Primary Care Unavailable O'SHAKIAR, BRANDON Attending Unavailable O'SHAKIRA, BRANDON Referring Unavailable MAGALYS AGUSTIN Primary Care Unavailable MAGALYS AGUSTIN Primary Care Unavailable ALEX SHAFFER JR Referring Unavailable BRANDON HERCULES Attending Unavailable Allergies Allergy Classification Reported Allergen(s) Allergy Type Date of Onset Reaction(s) Facility (2 sources) codeine Drug Allergy 03-18-20 [facility] (2 sources) ofloxacin Drug Allergy 03-18-20 [facility] (2 sources) sulfamethoxazole / trimethoprim Drug Allergy 03-18-20 [facility] (2 sources) SUMAtriptan Drug Allergy 03-18-20 [facility] (2 sources) PAIN MEDICATION drug allergy 03-18-20 [facility] (20 sources) Codeine; Translations: [CODEINE] Drug Allergy 10-18-19 [facility] (20 sources) Morphine; Translations: [MORPHINE] Drug Allergy 10-18-19 [facility] (20 sources) Ofloxacin; Translations: [OFLOXACIN] Drug Allergy 04-18-20 [facility] Work Phone: (20 sources) Pethidine analog; Translations: [OPIOIDS-MEPERIDINE AND RELATED] Propensity to adverse reactions 10-18-19 [facility] (20 sources) Sulfonamides (Antibiotic); Translations: [SULFA (SULFONAMIDE ANTIBIOTICS)] Propensity to adverse reactions 10-18-19 [facility] (20 sources) SUMAtriptan; Translations: [SUMATRIPTAN SUCCINATE] Drug Allergy 04-18-20 [facility] Work Phone: (20 sources) [id number] Antimigraine Agents; Translations: [[id number] ANTIMIGRAINE AGENTS] Propensity to adverse reactions 10-18-19 [facility] Medications Current Medications Medication Drug Class(es) Dates Sig (Normalized) Sig (Original) iv contrast (will be provided with radiology test) (4 sources) Start: 02-21-2023 End: 02-22-2023 inject 1 dose intravenously once iv contrast (will be provided with radiology test) CTA Head/Neck WO/W No IV access, insert saline lock prior to the sedation, infusion, injection for imaging exam. Discontinue saline lock post exam. If Pt. has a central line or IVAD, may access for administration according to line specific nursing protocol. Once exam is complete flush line and de-access according to line specific nursing protocol in the CT contrast administration guidelines link. 1 Each 0 02/21/2023 02/22/2023 Active Completed/Discontinued Medications Medication Drug Class(es) Dates Sig (Normalized) Sig (Original) alendronic acid 70 mg oral tablet (20 sources) Bisphosphonate take 1 tablet by carlos th every week in the morning alendronate (FOSAMAX) 70 mg tablet Take 70 mg by mouth one time a week. In AM with cup of water on empty stomach. Nothing else by mouth and stay upright for 30 min. 0 Active Problems Active Problems Problem Classification Problem Date Documented Date Episodic/Chronic Conditions associated with dizziness or vertigo (20 sources) Dizziness; Translations: [Dizziness and giddiness] Onset: 10-20-2022 Episodic Disorders of lipid metabolism (20 sources) Hyperlipidemia; Translations: [Hyperlipidemia, unspecified] Onset: 08-26-2015 08-26-2015 Chronic Epilepsy; convulsions (20 sources) Generalized convulsive epilepsy; Translations: [Generalized idiopathic epilepsy and epileptic syndromes, not intractable, without status epilepticus] Onset: 02-02-2005 Chronic Esophageal disorders (20 sources) Gastroesophageal reflux disease; Translations: [Gastro-esophageal reflux disease without esophagitis] Onset: 02-02-2005 02-02-2005 Chronic Headache; including migraine (20 sources) Migraine without aura; Translations: [Migraine without aura, not intractable, without status migrainosus] Onset: 02-02-2005 07-12-2016 Chronic Menopausal disorders (20 sources) Atrophic vaginitis; Translations: [Postmenopausal atrophic vaginitis] Onset: 05-12-2009 05-12-2009 Chronic Other aftercare (1 source) Patient encounter status; Translations: [Encounter for therapeutic drug level monitoring] Episodic Other aftercare (1 source) Taking high risk medication; Translations: [Other fpc (current) drug therapy] 02-21-2023 Episodic Other aftercare (1 source) Other tank terminal gauger (current) drug therapy; Translations: [High risk medication use] Onset: 02-21-2023 Episodic Other circulatory disease (2 sources) H/O: cardiovascular disease; Translations: [Personal history of other diseases of the circulatory system] 02-21-2023 Episodic Other circulatory disease (1 source) Personal history of other diseases of the circulatory system; Translations: [History of carotid stenosis] Onset: 03-03-2023 Episodic Other nervous system disorders (2 sources) Neuropathy; Translations: [Polyneuropathy, unspecified] Chronic Other nervous system disorders (1 source) Bilateral carpal tunnel syndrome; Translations: [Carpal tunnel syndrome, bilateral upper limbs] Chronic Other nervous system disorders (1 source) Polyneuropathy, unspecified; Translations: [Neuropathy] Onset: 10-20-2022 Chronic Other nervous system disorders (1 source) Carpal tunnel syndrome, bilateral upper limbs; Translations: [Bilateral carpal tunnel syndrome] Onset: 10-20-2022 Chronic Residual codes; unclassified (2 sources) Menopause present; Translations: [Menopausal and female climacteric states] Onset: 03-18-2017 03-18-2017 Chronic Residual codes; unclassified (2 sources) Obstructive sleep apnea syndrome; Translations: [Obstructive sleep apnea (adult) (pediatric)] Chronic Residual codes; unclassified (1 source) Obstructive sleep apnea (adult) (pediatric); Translations: [MELA (obstructive sleep apnea)] Onset: 10-20-2022 Chronic Unclassified (1 source) Screening mammography ; Translations: [Encounter for screening mammogram for malignant neoplasm of breast] Onset: 03-18-2017 03-18-2017 Past or Other Problems Problem Classification Problem Date Documented Da te Episodic/Chronic Other aftercare (1 source) Encounter for therapeutic drug level monitoring; Translations: [Encounter for medication monitoring] Onset: 10-20-2022 Episodic Other and unspecified benign neoplasm (20 sources) History of polyp of colon; Translations: [Personal history of colonic polyps] Onset: 04-19-2007 04-19-2007 Episodic Other gastrointestinal disorders (20 sources) Diarrhea; Translations: [Diarrhea, unspecified] Onset: 04-19-2007 04-19-2007 Episodic Other inflammatory condition of skin (20 sources) Lichen planus; Translations: [Lichen planus, unspecified] Onset: 03-17-2010 03-17-2010 Episodic Other nervous system disorders (20 sources) Unsteady when standing; Translations: [Unsteadiness on feet] Onset: 12-01-2022 Episodic Other nervous system disorders (1 source) Unsteadiness on feet; Translations: [Unsteadiness] Onset: 10-20-2022 Episodic Other screening for suspected conditions (not mental disorders or infectious disease) (20 sources) Mammography abnormal; Translations: [Other abnormal and inconclusive findings on diagnostic imaging of breast] Onset: 05-16-2007 05-16-2007 Episodic Residual codes; unclassified (20 sources) Postoperative state; Translations: [Other specified postprocedural states] Onset: 10-14-2009 10-14-2009 Episodic Spondylosis; intervertebral disc disorders; other back problems (20 sources) Spinal stenosis of lumbar region; Translations: [Spinal stenosis, lumbar region without neurogenic claudication] Onset: 04-21-2006 04-21-2006 Episodic Results Test Name Value Interpretation Reference Range Facil ity Vital Signs Date Time Vital Sign Value Performing Clinician Dion gonzalez 02-21-2023 11:38-0400 Body weight 60.24 kg Alex Shaffer Jr., MD Work Phone: [facility] 02-21-2023 11:38-0400 Diastolic blood pressure 81 mm[Hg] Alex Shaffer Jr., MD Work Phone: [facility] 02-21-2023 11:38-0400 Heart rate 76 /min Alex Shaffer Jr., MD Work Phone: [facility] 02-21-2023 11:38-0400 Respiratory rate 16 /min Alex Shaffer Jr., MD Work Phone: [facility] 02-21-2023 11:38-0400 SaO2% (BldA) [Mass fraction] 96 % Alex Shaffer Jr., MD Work Phone: [facility] 02-21-2023 11:38-0400 Systolic blood pressure 145 mm[Hg] Alex Shaffer Jr., MD Work Phone: [facility] 10-20-2022 15:56-0400 Body temperature 97.81 [degF] Vicenta Chirinos PA-C Work Phone: [facility] 10-20-2022 15:56-0400 Body weight 64.86 kg Vicenta Chirinos PA-C Work Phone: [facility] 10-20-2022 15:56-0400 Diastolic blood pressure 84 mm[Hg] Vicenta Borjaser PA-C Work Phone: [facility] 10-20-2022 15:56-0400 Heart rate 75 /min Vicenta Borjaser PA-C Work Phone: [facility] 10-20-2022 15:56-0400 Respiratory rate 16 /min Vicenta Borjaser PA-C Work Phone: [facility] 10-20-2022 15:56-0400 SaO2% (BldA) [Mass fraction] 95 % Vicenta Borjaser PA-C Work Phone: [facility] 10-20-2022 15:56-0400 Systolic blood pressure 146 mm[Hg] Viecnta Borjaser PA-C Work Phone: [facility] 03-18-2017 13:11-0400 BMI (Body Mass Index) 25.78 kg/m2 Taryn Lee MD [facility] 03-18-2017 13:11-0400 Body Temperature 97.4 [degF] Taryn Lee MD [facility] 03-18-2017 13:11-0400 Body Temperature 97.39 [degF] Taryn Lee MD [facility] 03-18-2017 13:11-0400 BP Diastolic 73 mm[Hg] Taryn Lee MD [facility] 03-18-2017 13:11-0400 BP Systolic 147 mm[Hg] Taryn Lee MD [facility] 03-18-2017 13:11-0400 Height 162.56 cm Taryn Lee MD [facility] 03-18-2017 13:11-0400 Pulse (Heart Rate) 63 /min Taryn Lee MD [facility] 03-18-2017 13:11-0400 Respiratory Rate 16 /min Taryn Lee MD [facility] 03-18-2017 13:11-0400 Weight 68.13 kg Taryn Lee MD [facility] Encounters Encounter Date Encounter Type Care Provider Facility Start: 04-29-2023 End: 04-29-2023 ambulatory MAGALYS AGUSTIN Facility:[facility] Start: 04-29-2023 End: 04-29-2023 ambulatory Brandon Hercules PT Travis [facility] Physical Therapy Procedures Date Procedure Procedure Detail Performing Clinician Start: 03-03-2023 Ct angiography head w/contrast/noncontrast Alex Shaffer MD Work Phone: Start: 03-03-2023 Ct angiography neck w/contrast/noncontrast Alex Shaffer MD Work Phone: Start: 11-29-2022 Mri brain brain stem w/o w/contrast material Vicenta Chirinos PA-C Work Phone: Start: 03-18-2017 Screening mammography Screening mammogram for breast cancer Taryn Lee MD Start: 03-18-2017 End: 03-18-2017 Documentation of current medications Taryn Lee MD Plan of Treatment Date Care Activity Detail Author Start: 02-06-2029 Urine microalbumin profile [facility] Start: 02-21-2026 Diabetes Screening Diabetes Screening [facility] Start: 02-11-2023 Covid-19 Vaccine ( season) Covid-19 Vaccine () [facility] Start: 02-11-2023 Influenza vaccination [facility] Start: 12-29-2022 End: 02-28-2023 CBC panel - Blood by Automated count CBC Lab Routine Generalized convulsive epilepsy (HCC) Expected: 12/29/2022, Expires: 02/28/2023 [facility] Work Phone: Immunizations Immunization Date Immunization Notes Care Provider Fa cili 03-25-2022 influenza virus vacc ine, unspecified formulation Vicenta Chirinos PA-C Work Phone: [facility] 03-17-2021 influenza, injectabl e, quadrivalent, contains preservative Alex Shaffer Jr., MD Work Phone: [facility] 08-08-2020 COVID-19 vaccine, fu ll dose (MODERNA) Alex Shaffer Jr., MD Work Phone: [facility] 07-11-2020 COVID-19 vaccine, fu ll dose (MODERNA) Alex Shaffer Jr., MD Work Phone: [facility] 03-02-2020 influenza (aIIV4) vaccine, age 65+ yr, quadrivalent, PF (FLUAD QUADRIVALENT) Alex Shaffer Jr., MD Work Phone: [facility] 02-12-2020 pneumococcal polysaccharide vaccine, 23 valent Alex Shaffer Jr., MD Work Phone: [facility] 04-17-2019 influenza, high dose seasonal, preservative-free Alex Shaffer Jr., MD Work Phone: [facility] 02-06-2019 pneumococcal conjuga te vaccine, 13 valent Alex Shaffer Jr., MD Work Phone: [facility] 02-06-2019 tetanus toxoid, redu yo diphtheria toxoid, and acellular pertussis vaccine, adsorbed Alex Shaffre Jr., MD Work Phone: [facility] 03-19-2017 influenza, high dose seasonal, preservative-free Alex Shaffer Jr., MD Work Phone: [facility] Work Phone: 2016 influenza, injectabl e, quadrivalent, contains preservative Alex Shaffer Jr., MD Work Phone: [facility] 05-11-2016 influenza, high dose seasonal, preservative-free Alex Shaffer Jr., MD Work Phone: [facility] 09-22-2015 pneumococcal conjuga te vaccine, 13 valent Alex Shaffer Jr., MD Work Phone: [facility] 04-07-2015 influenza, high dose seasonal, preservative-free Alex Shaffer Jr., MD Work Phone: [facility] 08-21-2013 tetanus toxoid, redu yo diphtheria toxoid, and acellular pertussis vaccine, adsorbed Alex Shaffer Jr., MD Work Phone: [facility] 07-13-2013 influenza virus vacc ine, unspecified formulation Alex Shaffer Jr., MD Work Phone: [facility] Work Phone: 04-02-2013 zoster vaccine, live Alex Shaffer Jr., MD Work Phone: [facility] Work Phone: 03-23-2012 influenza virus vacc ine, whole virus Alex Shaffer Jr., MD Work Phone: [facility] Work Phone: 03-17-2010 influenza virus vacc ine, unspecified formulation Alex Shaffer Jr., MD Work Phone: [facility] 04-12-2006 influenza virus vacc ine, unspecified formulation Alex Shaffer Jr., MD Work Phone: [facility] 09-04-2004 pneumococcal polysaccharide vaccine, 23 valent Alex Shaffer Jr., MD Work Phone: [facility] Work Phone: 04-13-2003 influenza virus vacc ine, unspecified formulation Alex Shaffer Jr., MD Work Phone: [facility] Work Phone: 07-05-2002 diphtheria and tetan us toxoids, adsorbed for pediatric use Alex Shaffer Jr., MD Work Phone: [facility] Work Phone: Payers Date Payer Category Payer Unknown [employer] BL[employer] HMO [id number] 2017-Present [phone] [id number] O [id number] 2017 Unknown ANTHEM [employer] S AND BLUE SHIELD ANTHEM MEDIBLUE HMO [id number] 2017-Present [phone] [address] O [id number] 2017 Unknown [id number] Social History Date Type Detail Facility Start: 10-20-2022 Tobacco smoking stat us NHIS Never smoked tobacco [facility] Start: 06-26-2021 End: 02-21-2023 Alcohol intake Current non-drinker of alcohol (finding) [facility] Start: 1940 Sex Assigned At Not on file [facility] Start: 10-20-2022 Tobacco use and exposure Smoke less tobacco non-user [facility] Start: 10-20-2022 End: 02-21-2023 History of Social function [facility] Start: 10-20-2022 End: 02-21-2023 Tobacco use panel [facility] National Score (1-10 0), lower number is lower risk 43 [facility] Clinical Notes 07-06-2011 to 04-29-2023 Brandon Hercules PT - 04/29/2023 12:03 PM ESTTelephone Encounter - Brandon Baugh LPN - 04/20/2023 10:45 AM Brandon Hale PT - 04/08/2023 9:53 AM Rebeca Campos RT(R) - 11/29/2022 1:40 PM EDT Note Date & Type Note Facility 04-29-2023 Note HNO ID: [id number] Author: Brandon Hercules PT Service: ? Author Type: Physical Therapist Type: Progress Notes Filed: 04/29/2023 12:37 PM Note Text: Episode Visit Count: 3 Therapist That Will Accept/Oversee The Plan Of Care: Brandon Hercules Start of Care Date: 03/30/23 Onset Date: 10/28/22 Plan of Care Certification Date: 03/30/23 Next Certification Due Date: 05/04/23 [facility]TS [facility]ER[facility]Y PHYSICAL THERAPY DISCONTINUANCE OF CARE PLAN OF CARE UPDATE: Assessment: Keny Baptiste is discontinued from Physical Therapy services due to maximal benefit.. Patient was seen for 3 visits from Start of Care Date: 03/30/23 to 04/29/2023 and treatment included: Neuromuscular re-education and Self-snf management. Goals for Episode of Care: created on 03/30/23 through 05/11/23 Goals updated on 04/29/2023. Patient will improve FGA to = to >24/30 in order to perform functional tasks with improved stability. -- PARTIALLY MET - pt. scoredd on DGI, DGI used due to pt. Using SC in community Patient will be independent with home exercise program and progression.-- MET Patient will return to prior level of function with all activities of daily living with trace reports of dizziness. -- MET Patient will be able to walk household and community distances with safe, functional gait pattern with trace report of dizziness/imbalance. -- MET Patient will demonstrate the ability to complete VOR in static and dynamic positions with trace report of dizziness. -- MET Patient Goals: reduce dizziness with head movement and walking --MET SUBJECTIVE: Pt. reports she hasn't been feeling dizzy. She gets some lightheadedness with sitting up quicly but this resolves with moving slower.. Patient Goals: reduce dizziness with head movement and walking Functional Limitations: standing, walking (turning, head movement) Pain: Pain Pain Level: 0 Pain Location: Low Back/Lumbar Spine- Midline Description: Aching Post Treatment Pain Post Treatment Pain Level: No Change Post Treatment Pain Location: Low Back/Lumbar Spine- Midline Post Treatment Symptoms: denies dizziness throughout visit PROMIS Scales Higher is Better 03/30/2023 12/01/2022 Phys Func - Score 32 (moderate dysfunction) 34 (moderate dysfunction) Phys Func - Percentile 4 % 5 % Self-Eff Symptom - Score 46 (Average) 43 (Average) Self-Eff Symptom - Percentile 34 % 24 % T-scores: mean of general population = 50. 5 points is clinically meaningfully difference Percentiles provide an indication of how the patient's score ranks in relation to the general population. Higher percentile rankings indicate better function/quality of life. 50th percentile is the average of the general population and indicates half of respondents had a worse score. OBJECTIVE MEASURES WITH LEVEL OF FUNCTION: Oculomotor Testing Fixation Removed Gaze Evoked Nystagmus: Not present Center Gaze : No nystagmus Right Gaze : No nystagmus Left Gaze : No nystagmus Up Gaze : No nystagmus Down Gaze : No nystagmus Head Shake: Negative Positional Testing Right Ear Down: Asymptomatic, No nystagmus Left Ear Down: No nystagmus, Asymptomatic Positional Test Comments: R and L sidelying test due to pt. having back pain - no nystagmus and pt. asymptomatic TREATMENT: Neuromuscular Re-Education: 1: VOR x1 60 sec horrizontal head movement - denies vision changes or dizziness 2: VOR x1 60 sec vertical head movement - denies vision changes or dizziness 3: R and L side lying test 4: fixation removed oculomotor testing 5: walking forward with horrizontal head turns 20' using SC 6: walking forward with vertical head turns 20' with SC Skilled Intervention: Skilled judgment used to assess appropriate program for balance and coordination activity. Education in proprioceptive/kinesthetic awareness during dynamic activities. Reviewed and educated patient on additions/changes for home program as noted above with an (*). Patient education as noted. Self-Snf Management: 1: Encouraged pt. to use SC at home 2: discussed negative vestibular testing findings. Instructed pt. to continue moving slowly to avoid lightheadedness with quick transitional movements supine to sit and sit to stand Skilled Intervention: Skilled judgment in the selection of proper modification for activity of daily living/home management based on clinical presentation, deficits, and needs. Reviewed patient specific diagnosis in relation to activities of daily living/home management. Activity progression based on professional judgement. Reviewed and educated patient on additions/changes for home program as noted above with an (*). Billing Neuromuscular Re-Education Treatment Minutes: 20 Self-Care/Home Management Treatment Minutes: 5 Total Session Time (minutes): 25 Session Start Time : 1200 Session Stop Time : 1225 Brandon Hercules, PT [facility] 04-29-2023 History of Present illness Narrative Episode Visit Count: 3 Therapist That Will Accept/Oversee The Plan Of Care: Brandon Hercules Start of Care Date: 03/30/23 Onset Date: 10/28/22 Plan of Care Certification Date: 03/30/23 Next Certification Due Date: 05/04/23 REHABILITATION AND SPORTS THERAPY PHYSICAL THERAPY DISCONTINUANCE OF CARE PLAN OF CARE UPDATE: Assessment: Keny Baptiste is discontinued from Physical Therapy services due to maximal benefit.. Patient was seen for 3 visits from Start of Care Date: 03/30/23 to 04/29/2023 and treatment included: Neuromuscular re-education and Self-snf management. Goals for Episode of Care: created on 03/30/23 through 05/11/23 Goals updated on 04/29/2023. Patient will improve FGA to = to >24/30 in order to perform functional tasks with improved stability. -- PARTIALLY MET - pt. scoredd on DGI, DGI used due to pt. Using SC in community Patient will be independent with home exercise program and progression.-- MET Patient will return to prior level of function with all activities of daily living with trace reports of dizziness. -- MET Patient will be able to walk household and community distances with safe, functional gait pattern with trace report of dizziness/imbalance. -- MET Patient will demonstrate the ability to complete VOR in static and dynamic positions with trace report of dizziness. -- MET Patient Goals: reduce dizziness with head movement and walking --MET SUBJECTIVE: Pt. reports she hasn't been feeling dizzy. She gets some lightheadedness with sitting up quicly but this resolves with moving slower.. Patient Goals: reduce dizziness with head movement and walking Functional Limitations: standing, walking (turning, head movement) Pain: Pain Pain Level: 0 Pain Location: Low Back/Lumbar Spine- Midline Description: Aching Post Treatment Pain Post Treatment Pain Level: No Change Post Treatment Pain Location: Low Back/Lumbar Spine- Midline Post Treatment Symptoms: denies dizziness throughout visit PROMIS Scales Higher is Better 03/30/2023 12/01/2022 Phys Func - Score 32 (moderate dysfunction) 34 (moderate dysfunction) Phys Func - Percentile 4 % 5 % Self-Eff Symptom - Score 46 (Average) 43 (Average) Self-Eff Symptom - Percentile 34 % 24 % T-scores: mean of general population = 50. 5 points is clinically meaningfully difference Percentiles provide an indication of how the patient's score ranks in relation to the general population. Higher percentile rankings indicate better function/quality of life. 50th percentile is the average of the general population and indicates half of respondents had a worse score. OBJECTIVE MEASURES WITH LEVEL OF FUNCTION: Oculomotor Testing Fixation Removed Gaze Evoked Nystagmus: Not present Center Gaze : No nystagmus Right Gaze : No nystagmus Left Gaze : No nystagmus Up Gaze : No nystagmus Down Gaze : No nystagmus Head Shake: Negative Positional Testing Right Ear Down: Asymptomatic, No nystagmus Left Ear Down: No nystagmus, Asymptomatic Positional Test Comments: R and L sidelying test due to pt. having back pain - no nystagmus and pt. asymptomatic TREATMENT: Neuromuscular Re-Education: 1: VOR x1 60 sec horrizontal head movement - denies vision changes or dizziness 2: VOR x1 60 sec vertical head movement - denies vision changes or dizziness 3: R and L side lying test 4: fixation removed oculomotor testing 5: walking forward with horrizontal head turns 20' using SC 6: walking forward with vertical head turns 20' with SC Skilled Intervention: Skilled judgment used to assess appropriate program for balance and coordination activity. Education in proprioceptive/kinesthetic awareness during dynamic activities. Reviewed and educated patient on additions/changes for home program as noted above with an (*). Patient education as noted. Self-Snf Management: 1: Encouraged pt. to use SC at home 2: discussed negative vestibular testing findings. Instructed pt. to continue moving slowly to avoid lightheadedness with quick transitional movements supine to sit and sit to stand Skilled Intervention: Skilled judgment in the selection of proper modification for activity of daily living/home management based on clinical presentation, deficits, and needs. Reviewed patient specific diagnosis in relation to activities of daily living/home management. Activity progression based on professional judgement. Reviewed and educated patient on additions/changes for home program as noted above with an (*). Billing Neuromuscular Re-Education Treatment Minutes: 20 Self-Care/Home Management Treatment Minutes: 5 Total Session Time (minutes): 25 Session Start Time : 1200 Session Stop Time : 1225 Brandon Hercules PT documented in this encounter [facility] 04-20-2023 Miscellaneous Notes CHARLES 02/21/23 with [facility] NOV 07/01/23 with [facility] Refill 11/11/22 with qty: 90 and 1 refills SAYRA Lorenzo Assessment/Plan 1. Dizziness and giddiness - ICD9: 780.4, ICD10: R42 (primary diagnosis) 2. Lightheadedness - ICD9: 780.4, ICD10: R42 Etiology uncertain at this time, with workup thus far unremarkable. Pt is endorsing both symptoms of vertigo as well as presyncope. No definite loc to suggest seizure. No intracranial or cervical spine source identified on workup. Nystagmus would suggest a peripheral etiology (L vestibular system) but Anthony exam performed today (not noted above) unremarkable. Question if BPPV. Will refer for vestibular battery testing as well as vestibular therapy. That said, pt is also endorsing lightheadedness and was orthostatic in office. 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 Will proceed with tilt table, event monitor and ECHO to further evaluate. However, I would also like CTA of head and neck for dedicate evaluation for large vessel disease including VBI. Finally given history of tegretol use will check CMP for hyponatremia and tegretol levels as possible contributing factors. 3. 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 Tegretol levels as above. No change in tegretol dose at this time which pt has been on for some time now with no side effects. 4. High risk medication use - ICD9: V58.69, ICD10: Z79.899 - CARBAM/TEGRETOL F 5. MELA (obstructive sleep apnea) - ICD9: 327.23, ICD10: G47.33 Asx per pt. Encouraged continued use of dental appliance and positional therapy. 6. Migraine without aura and without status migrainosus, not intractable - ICD9: 346.10, ICD10: G43.009 Asx. Continue Verapamil as previously Rx'd for now. 7. Neuropathy - ICD9: 355.9, ICD10: G62.9 No definite change on exam. Pt not wanting EMG. If tilt table +, may need referral to autonomic clinic for further evaluation. Alex Shaffer MD documented in this encounter [facility] 04-08-2023 Note HNO ID: [id number] Author: Brandon Hercules PT Service: ? Author Type: Physical Therapist Type: Progress Notes Filed: 04/08/2023 10:27 AM Note Text: Episode Visit Count: 2 Therapist That Will Accept/Oversee The Plan Of Care: Brandon Hercules Start of Care Date: 03/30/23 Onset Date: 10/28/22 Plan of Care Certification Date: 03/30/23 Next Certification Due Date: 05/04/23 REHABILITATION AND SPORTS THERAPY PHYSICAL THERAPY TREATMENT NOTE ASSESSMENT: Keny Baptiste tolerated the session with decreased symptoms. She demonstrated improvements in tolerance with VORx1 seated exercises, able to increased speed of head movement. She scored well on DGI and denied LBP throughout visit. The patient will continue to benefit from ongoing skilled physical therapy to progress toward set goals. PLAN FOR NEXT VISIT: PN and possible DC SUBJECTIVE: Pt. reports dizziness is better. She had an SIJ injection. Denies vertigo. She only gets light headed with quick movements. No dizziness with walking. Compliant with HEP. She presents with SC today asking if it is the proper height. She has been recently dx with SVT and will f/u with cardiology. She has no balance concerns and denies falls. Vestibular Rating of current symptoms: 0/10 Pain: Pain Pain Level: 0 Pain Location: Low Back/Lumbar Spine- Midline Description: Aching Post Treatment Pain Post Treatment Pain Level: 0 Post Treatment Pain Location: Low Back/Lumbar Spine- Midline OBJECTIVE MEASURES WITH LEVEL OF FUNCTION: Dynamic Gait Index Gait level surface : 2 - Mild impairment- walks 20' uses assist device, slower speed, mild gait deviation Change in gait speed: 2 - Mild impairment- is able to change speed but demonstrates mild gait deviations or no gait deviations but unable to achieve a significant change in velocity, or uses an assistive device Gait and horizontal head turns: 2 - Mild impairment- performs R/L head turns smoothly with slight change in gait velocity, minor disruption to smooth gait path or uses assistive device Gait and vertical head turns: 2 - Mild impairment- performs up/ down head turns smoothly with slight change in gait velocity, minor disruption to smooth gait path or uses assistive device Gait and pivot: 3 - Normal- pivot turn safely within 3 sec, stops quickly, no loss of balance Step over obstacle: 3 - Normal- is able to step over box without changing speed, no evidence of imbalance Step around obstacle: 3 - Normal- able to walk around cones safely without changing gait speed, no evidence of imbalance Steps: 2 - Mild impairment- alternating feet, must use rail Dynamic Gait Index Total: 19 TREATMENT: Neuromuscular Re-Education: 1: *Seated Gaze Stabilization with Head Nod - 3 x daily - 7 x weekly - 3 sets - 1 reps - 60 sec (denies dizziness/oscilopsia, had to slow down due to nausea) 2: *Seated Gaze Stabilization with Head Rotation - 3 x daily - 7 x weekly - 3 sets - 1 reps - 60 sec (cues to go a little faster - pt. rpeorts the target jumps with turning the head L) 3: DGI with SC, Skilled Intervention: Education in proprioceptive/kinesthetic awareness during dynamic activities. Ensured patient safety with use of gait belt. Correct performance of home program was facilitated with verbal, visual, and tactile cueing. Patient education as noted. Self-Snf Management: 1: PT encouraged pt. to get the tilt table test done. Pt. states she is getting tired of appointments and tests, she would like to just stay home. 2: how to size SC instruction. Pt. cane is appropriate - handle lines with distal ulna when pt. is standing upright. 3: PT explained how cardiovascular system could also cause symptoms of lightheadedness. 4: Encouraged continued compliance with adpatation exercises 5: discussed balance test scores on DGI, indicated pt. is at a lower risk for falls if she uses a SC Skilled Intervention: Skilled judgment in the selection of proper modification for activity of daily living/home management based on clinical presentation, deficits, and needs. Reviewed patient specific diagnosis in relation to activities of daily living/home management. Activity progression based on professional judgement. Billing Neuromuscular Re-Education Treatment Minutes: 30 Self-Care/Home Management Treatment Minutes: 8 Total Session Time (minutes): 38 Session Start Time : 50 Session Stop Time : 1028 Brandon Hercules, PT [facility] 04-08-2023 History of Present illness Narrative Episode Visit Count: 2 Therapist That Will Accept/Oversee The Plan Of Care: Brandon Hercules Start of Care Date: 03/30/23 Onset Date: 10/28/22 Plan of Care Certification Date: 03/30/23 Next Certification Due Date: 05/04/23 REHABILITATION AND SPORTS THERAPY PHYSICAL THERAPY TREATMENT NOTE ASSESSMENT: Keny Baptiste tolerated the session with decreased symptoms. She demonstrated improvements in tolerance with VORx1 seated exercises, able to increased speed of head movement. She scored well on DGI and denied LBP throughout visit. The patient will continue to benefit from ongoing skilled physical therapy to progress toward set goals. PLAN FOR NEXT VISIT: PN and possible DC SUBJECTIVE: Pt. reports dizziness is better. She had an SIJ injection. Denies vertigo. She only gets light headed with quick movements. No dizziness with walking. Compliant with HEP. She presents with SC today asking if it is the proper height. She has been recently dx with SVT and will f/u with cardiology. She has no balance concerns and denies falls. Vestibular Rating of current symptoms: 0/10 Pain: Pain Pain Level: 0 Pain Location: Low Back/Lumbar Spine- Midline Description: Aching Post Treatment Pain Post Treatment Pain Level: 0 Post Treatment Pain Location: Low Back/Lumbar Spine- Midline OBJECTIVE MEASURES WITH LEVEL OF FUNCTION: Dynamic Gait Index Gait level surface : 2 - Mild impairment- walks 20' uses assist device, slower speed, mild gait deviation Change in gait speed: 2 - Mild impairment- is able to change speed but demonstrates mild gait deviations or no gait deviations but unable to achieve a significant change in velocity, or uses an assistive device Gait and horizontal head turns: 2 - Mild impairment- performs R/L head turns smoothly with slight change in gait velocity, minor disruption to smooth gait path or uses assistive device Gait and vertical head turns: 2 - Mild impairment- performs up/ down head turns smoothly with slight change in gait velocity, minor disruption to smooth gait path or uses assistive device Gait and pivot: 3 - Normal- pivot turn safely within 3 sec, stops quickly, no loss of balance Step over obstacle: 3 - Normal- is able to step over box without changing speed, no evidence of imbalance Step around obstacle: 3 - Normal- able to walk around cones safely without changing gait speed, no evidence of imbalance Steps: 2 - Mild impairment- alternating feet, must use rail Dynamic Gait Index Total: 19 TREATMENT: Neuromuscular Re-Education: 1: *Seated Gaze Stabilization with Head Nod - 3 x daily - 7 x weekly - 3 sets - 1 reps - 60 sec (denies dizziness/oscilopsia, had to slow down due to nausea) 2: *Seated Gaze Stabilization with Head Rotation - 3 x daily - 7 x weekly - 3 sets - 1 reps - 60 sec (cues to go a little faster - pt. rpeorts the target jumps with turning the head L) 3: DGI with SC, Skilled Intervention: Education in proprioceptive/kinesthetic awareness during dynamic activities. Ensured patient safety with use of gait belt. Correct performance of home program was facilitated with verbal, visual, and tactile cueing. Patient education as noted. Self-Snf Management: 1: PT encouraged pt. to get the tilt table test done. Pt. states she is getting tired of appointments and tests, she would like to just stay home. 2: how to size SC instruction. Pt. cane is appropriate - handle lines with distal ulna when pt. is standing upright. 3: PT explained how cardiovascular system could also cause symptoms of lightheadedness. 4: Encouraged continued compliance with adpatation exercises 5: discussed balance test scores on DGI, indicated pt. is at a lower risk for falls if she uses a SC Skilled Intervention: Skilled judgment in the selection of proper modification for activity of daily living/home management based on clinical presentation, deficits, and needs. Reviewed patient specific diagnosis in relation to activities of daily living/home management. Activity progression based on professional judgement. Billing Neuromuscular Re-Education Treatment Minutes: 30 Self-Care/Home Management Treatment Minutes: 8 Total Session Time (minutes): 38 Session Start Time : 0950 Session Stop Time : 1028 Brandon Hercules PT documented in this encounter [facility] 04-04-2023 Miscellaneous Notes Fax received from [facility] requesting last office note from Dr. Shaffer. Office note dated 02/21/23 faxed to [phone]. Brandon Baugh LPN documented in this encounter [facility] 04-04-2023 Miscellaneous Notes Phone call placed patient advised (see prior provider encounter) Patient verbalized understanding, agreed with plan of care, reported current [facility] Mata, last OV 01/2023, results ( 11 pages) faxed to [phone]. Dian Devries LPN ----- Message from Alex Shafefr Jr., MD sent at 04/01/2023 11:47 PM EDT ----- I would like pt to see cardiology given that it appears run of SVT associated with symptoms. Uncertain if pt has preference of who she would like to see. Otherwise, I will place referral once patient responds. Alex Shaffer MD documented in this encounter [facility] 03-30-2023 Note HNO ID: [id number] Author: Brandon Hercules, PT Service: ? Author Type: Physical Therapist Type: Progress Notes Filed: 03/30/2023 1:34 PM Note Text: Episode Visit Count: 1 Therapist That Will Accept/Oversee The Plan Of Care: Brandon Hercules Start of Care Date: 03/30/23 Onset Date: 10/28/22 Plan of Care Certification Date: 03/30/23 Next Certification Due Date: 05/04/23 Patient Identified by Name and Date of : Yes REHABILITATION AND SPORTS THERAPY PHYSICAL THERAPY EVALUATION PLAN OF CARE: Assessment: Keny Baptiste presents with diagnosis of dizziness and giddiness that interferes with standing, walking (turning, head movement) . She presents with impairments in ADL's, balance, independence in exercise, overall function, patient reported outcome measures, and symptom management. PROMIS? (Patient-Reported Outcomes Measurement Information System) scores were reviewed and physical function domain and self efficacy domain identified as a rehabilitation concern. Prognosis for therapy is Fair due to: chronic nature of impairments, limited tolerance to activity, memory deficits, poor historian . She will benefit from skilled therapy services to meet the goals established for this plan of care as noted below. Goals for Episode of Care: created on 03/30/23 through 05/11/23 Patient will improve FGA to = to >24/30 in order to perform functional tasks with improved stability. Patient will be independent with home exercise program and progression. Patient will return to prior level of function with all activities of daily living with trace reports of dizziness. Patient will be able to walk household and community distances with safe, functional gait pattern with trace report of dizziness/imbalance. Patient will demonstrate the ability to complete VOR in static and dynamic positions with trace report of dizziness. Patient Goals: reduce dizziness with head movement and walking Planned Interventions, Frequency, and Duration: Current Frequency: 1x/week Duration: 6 weeks Total Number of Visits Planned: 6 Planned Treatment Interventions: Therapeutic exercise (62135), Neuromuscular re-education (87512), Manual therapy (06754), Therapeutic activities (20151), Self-snf management (69038), Gait Training (10668) PLAN FOR NEXT VISIT: FGA as tolerated, Patient demonstrates good understanding of plan of care and treatment. The above goals and plan of care were discussed and agreed upon by patient/family. SUBJECTIVE: for dizziness. Pt. was seen by vestibular PT December 2022 but denied dizziness that this time during vestibular testing. Pt. had greater complaints of low back pain and imbalance at this time, therefore PT focused to address her chief complaints. Today she presents with return of dizziness symptoms, but she is unable to remember exactly when dizziness returned since her last PT visit. She continues to have low back pain that has not improved but is scheduled to have an injection. 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 Today she states that turning the head quickly to the left causes increased dizziness. Being still resolves symptoms. Patient Goals: reduce dizziness with head movement and walking Functional Limitations: standing, walking (turning, head movement) Prior Level of Function: Independent without limitations Intake Information: Prescription present Previous Treatment: Vestibular Physical Therapy , Physical Therapy , Injections Falls Interview: No positive findings with falls interview Vestibular Symptoms present for: (pt. is not sure.) Symptom onset: sudden Dizziness: Yes Description: light headed Rating of current symptoms: 0/10 Frequency: Intermittent Duration: seconds Symptoms worsened by: turning head quickly Symptoms improved by: being still, moving slow, sitting Imbalance: Yes Imbalance triggered by: Turning Fall Assessment: No falls Nausea: no Motion Sickness: None Headache: No Neck Symptoms: No Jaw Symptoms: No Ear Symptoms: No Hearing Changes: left ear only Hearing Changes Description: shes not sure, but think her left ear hearing has changed some. Tinnitus: No recent changes Sleep Affected by Symptoms: not affected by pain, Not affected by dizziness History of Syncope: No History of Migraine: Yes (not since taking medication) Denies: visual changes, headaches, paresthesia, neuropathy, focal weakness, tremors, neurological complaints Reports: dizziness Pain: Pain Pain Level: 4 Pain Location: Low Back/Lumbar Spine- Midline Description: Aching Frequency: Standing, Walking Post Treatment Pain Post Treatment Pain Level: No Change Post Treatment Pain Location: Low Back/Lumbar Spine- Midline Post Treatment Symptoms: deniess dizziness PROMIS Scales Higher is Better 03/30/2023 12/01/2022 Phys Fun - Score 32 (moderate dysfunction) (more content not included)... [facility] 03-30-2023 History of Present illness Narrative Episode Visit Count: 1 Therapist That Will Accept/Oversee The Plan Of Care: Brandon Hercules Start of Care Date: 03/30/23 Onset Date: 10/28/22 Plan of Care Certification Date: 03/30/23 Next Certification Due Date: 05/04/23 Patient Identified by Name and Date of : Yes REHABILITATION AND SPORTS THERAPY PHYSICAL THERAPY EVALUATION PLAN OF CARE: Assessment: Keny Baptiste presents with diagnosis of dizziness and giddiness that interferes with standing, walking (turning, head movement) . She presents with impairments in ADL's, balance, independence in exercise, overall function, patient reported outcome measures, and symptom management. PROMIS (Patient-Reported Outcomes Measurement Information System) scores were reviewed and physical function domain and self efficacy domain identified as a rehabilitation concern. Prognosis for therapy is Fair due to: chronic nature of impairments, limited tolerance to activity, memory deficits, poor historian . She will benefit from skilled therapy services to meet the goals established for this plan of care as noted below. Goals for Episode of Care: created on 03/30/23 through 05/11/23 Patient will improve FGA to = to >24/30 in order to perform functional tasks with improved stability. Patient will be independent with home exercise program and progression. Patient will return to prior level of function with all activities of daily living with trace reports of dizziness. Patient will be able to walk household and community distances with safe, functional gait pattern with trace report of dizziness/imbalance. Patient will demonstrate the ability to complete VOR in static and dynamic positions with trace report of dizziness. Patient Goals: reduce dizziness with head movement and walking Planned Interventions, Frequency, and Duration: Current Frequency: 1x/week Duration: 6 weeks Total Number of Visits Planned: 6 Planned Treatment Interventions: Therapeutic exercise (21677), Neuromuscular re-education (28563), Manual therapy (74604), Therapeutic activities (94080), Self-snf management (71175), Gait Training (60129) PLAN FOR NEXT VISIT: FGA as tolerated, Patient demonstrates good understanding of plan of care and treatment. The above goals and plan of care were discussed and agreed upon by patient/family. SUBJECTIVE: for dizziness. Pt. was seen by vestibular PT December 2022 but denied dizziness that this time during vestibular testing. Pt. had greater complaints of low back pain and imbalance at this time, therefore PT focused to address her chief complaints. Today she presents with return of dizziness symptoms, but she is unable to remember exactly when dizziness returned since her last PT visit. She continues to have low back pain that has not improved but is scheduled to have an injection. 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 Today she states that turning the head quickly to the left causes increased dizziness. Being still resolves symptoms. Patient Goals: reduce dizziness with head movement and walking Functional Limitations: standing, walking (turning, head movement) Prior Level of Function: Independent without limitations Intake Information: Prescription present Previous Treatment: Vestibular Physical Therapy , Physical Therapy , Injections Falls Interview: No positive findings with falls interview Vestibular Symptoms present for: (pt. is not sure.) Symptom onset: sudden Dizziness: Yes Description: light headed Rating of current symptoms: 0/10 Frequency: Intermittent Duration: seconds Symptoms worsened by: turning head quickly Symptoms improved by: being still, moving slow, sitting Imbalance: Yes Imbalance triggered by: Turning Fall Assessment: No falls Nausea: no Motion Sickness: None Headache: No Neck Symptoms: No Jaw Symptoms: No Ear Symptoms: No Hearing Changes: left ear only Hearing Changes Description: shes not sure, but think her left ear hearing has changed some. Tinnitus: No recent changes Sleep Affected by Symptoms: not affected by pain, Not affected by dizziness History of Syncope: No History of Migraine: Yes (not since taking medication) Denies: visual changes, headaches, paresthesia, neuropathy, focal weakness, tremors, neurological complaints Reports: dizziness Pain: Pain Pain Level: 4 Pain Location: Low Back/Lumbar Spine- Midline Description: Aching Frequency: Standing, Walking Post Treatment Pain Post Treatment Pain Level: No Change Post Treatment Pain Location: Low Back/Lumbar Spine- Midline Post Treatment Symptoms: deniess dizziness PROMIS Scales Higher is Better 03/30/2023 12/01/2022 Phys Func - Score 32 (moderate dysfunction) 34 (moderate dysfunction) Phys Func - Percentile 4 % 5 % Self-Eff Symptom - Score 46 (Average) 43 (Average) Self-Eff Symptom - Percentile 34 % 24 % T-scores: mean of general population = 50. 5 points is clinically meaningfully difference Percentiles provide an indication of how the patient's score ranks in relation to the general population. Higher percentile rankings indicate better function/quality of life. 50th percentile is the average of the general population and indicates half of respondents had a worse score. OBJECTIVE MEASURES WITH LEVEL OF FUNCTION: Oculomotor Testing Fixation Present Ocular ROM: WNL Spontaneous Nystagmus: No nystagmus Gaze Evoked Nystagmus: Present Center Gaze : Left beat Right Gaze : Left beat Left Gaze : No nystagmus Smooth pursuit: Horizontal, Vertical and Diagonal all WNL Saccadic eye movements: Horizontal, vertical and oblique all WNL. Head Thrusts: Right positive (heavily guards her neck) VOR cancelation: Negative Convergence (Distance): pt. says shes not sure. VOR to slow head movements: Positive X1 Viewing - Horizontal: provokes symptoms, denies dizziness upon stopping Education: Education Learning Preferences: Demonstration, Explanation, Performance, Printed Materials Barriers: None Learning/educational needs: Home exercise program, Plan of Care Education Provided: Yes, see treatment interventions for education provided Education Provided To: Patient Education Mode/Type: Demonstration, Explanation/Discussion, Literature/Printed Materials, Performance Response to Education/Teach Back: Requires Review/Additional Education TREATMENT: PT Treatment Interventions: Neuromuscular Re-Education, Self-Snf Management Evaluation Neuromuscular Re-Education: 1: *Seated Gaze Stabilization with Head Nod - 3 x daily - 7 x weekly - 2 sets - 1 reps - 60 sec 2: *Seated Gaze Stabilization with Head Rotation - 3 x daily - 7 x weekly - 2 sets - 1 reps - 60 sec 3: 1 min rest between each set Skilled Intervention: Skilled judgment used to assess appropriate program for balance and coordination activity. Education in proprioceptive/kinesthetic awareness during VORx1 seated exercises. Patient education as noted. Self-Snf Management: 1: *UVL handout printed 2: discussed VOR and gaze stability 3: discussed purpose of adaptation exercises. Skilled Intervention: Skilled judgment in the selection of proper modification for activity of daily living/home management based on clinical presentation, deficits, and needs. Provided written instruction for activities of daily living techniques to facilitate proper performance and compliance. Reviewed and educated patient on additions/changes for home program as noted above with an (*). Provided written instruction for home program to facilitate proper performance and compliance. Correct performance of home program was facilitated with verbal, visual, and tactile cueing. Billing * Evaluation Low Complexity: 1 Unit Neuromuscular Re-Education Treatment Minutes: 15 Self-Care/Home Management Treatment Minutes: 10 Skilled Treatment Time Minutes (timed and untimed codes): 45 Total Session Time (minutes): 45 Session Start Time : 1115 Session Stop Time : 1200 Brandon Hercules PT documented in this encounter [facility] 03-18-2023 Note HNO ID: [id number] Author: Carin Eddy, PhD Service: ? Author Type: Bending Press Operator Type: Progress Notes Filed: 03/18/2023 5:14 PM Note Text: [facility] Laboratory Vestibular Test Battery Report Name: Keny Baptiste [facility]#: [id number] Date of Service: 03/18/2023 Date of : 1940 Age: [age] year old Referred by: Alex Shaffer Jr., MD And is a patient of Magalys Agustin MD, MD Referred for: Evaluation of the cause of disorder of hearing, tinnitus, or balance. Referral documented: In an order in Epic Pretest Instructions: patient did not read instructions but it was confirmed she was not on any anti-dizziness medication prior to testing Impressions and Recommendations OVERALL IMPRESSIONS: Abnormal vestibular evaluation. 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 No signs of active Benign Paroxysmal Positional Vertigo (BPPV). The following history was obtained by way of Keny Baptiste's previous medical record, patient entered questionnaire, and direct patient interview: Keny Baptiste presents with dizziness and lightheadedness. Symptoms began prior to February, but she reported she, has been okay lately because she makes sure to take her time as to not exacerbate any symptoms of dizziness. When the symptoms occur, they last for seconds in duration. Symptoms are provoked by rolling to the left in bed and standing up quickly. Keny denies any auditory and visual complaints. Of note, Keny has a history of headaches and migraines, however, they are not associated with dizziness nor occur at similar times/have similar triggers. Keny takes medication for her migraines and reported they localize to the right when they occur. Additionally, Keny reported she has had one seizure in the past. Keny has not fallen two or more times in the past year or fallen once with with injury and reports a fear of falling. Keny is currently using an ambulatory device: a cane. Aforementioned symptoms are impacting Keny's quality of life: she avoids moving quickly and feels like she has to be very careful. Please refer to history of present illness section for further details of presenting symptoms, signs and relevant past medical history. Symptom Ratin/10 today (0 = no symptoms, 10 = severe symptoms). Today's evaluation revealed the following: Findings demonstrate right peripheral vestibular system involvement given the following findings: post head-shake left-beating nystagmus and reduced vestibulo-ocular reflex (VOR) gain with evidence of corrective saccades on video head impulse testing (VHIT). The lesion appears in an uncompensated state physiologically (for eye movements), and functionally (for maintenance of stance). There were no objective indications of Benign Paroxysmal Positional Vertigo; however, symptoms of dizziness were noted with position changes. There were no indications of central vestibulo-ocular pathway involvement noted. Normal oculomotor examination. RECOMMENDATIONS: - Continue medical follow up with Alex Shaffer Jr., MD and Magalys Agustin MD, . - Consider further fall prevention management based on the following falling risk indicators observed during today's evaluation: patient uses a cane and notes significant balance problems with eyes closed. Fall prevention strategies were provided in the after visit summary. 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 Emphasis on the followin) gaze stabilization exercises for VOR gain deficiencies, 2) habituation exercises to reduce triggered symptoms, and 3) general balance/gait exercises to improve functioning during activities of daily living and reduce falling risk. - Consider re-evaluation as medically indicated. - Consider maintaining a healthy sleep schedule in addition to diet, hydration, and exercise. The results and recommendations were explained to Keny Baptiste and her daughter and they expressed understanding of the information. History Present Illness SUMMARY OF PAST MEDICAL HISTORY: Referring provider Alex Prather Jr., MD: per provider's note on 02/21/2023: Patient reporting some new onset dizziness and unsteadiness since last visit. She is describing both room spinning dizziness when she wakes up in the morning, likely vertiginous, resolving within a few minutes. But she is also experiencing unsteadiness with walking, especially when she turns. Notes that she is stumbling and has to brace herself. Denies any falls or weakness. Summary of relevant imaging (directly adapted from report): Normal head MRI 11/29/2022 but cervical spondylosis with canal stenosis c3-4 Previous audiologic evaluation: Not on file. Previously completed vestibular rehab (more content not included)... [facility] 03-18-2023 History of Present illness Narrative Head [facility] Laboratory Vestibular Test Battery Report Name: Keny Baptiste [facility]#: [id number] Date of Service: 03/18/2023 Date of : 1940 Age: [age] year old Referred by: Alex Shaffer Jr., MD And is a patient of Magalys Agustin MD, MD Referred for: Evaluation of the cause of disorder of hearing, tinnitus, or balance. Referral documented: In an order in [facility] Pretest Instructions: patient did not read instructions but it was confirmed she was not on any anti-dizziness medication prior to testing Impressions and Recommendations OVERALL IMPRESSIONS: Abnormal vestibular evaluation. 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 No signs of active Benign Paroxysmal Positional Vertigo (BPPV). The following history was obtained by way of Keny Baptiste's previous medical record, patient entered questionnaire, and direct patient interview: Keny Baptiste presents with dizziness and lightheadedness. Symptoms began prior to February, but she reported she, has been okay lately because she makes sure to take her time as to not exacerbate any symptoms of dizziness. When the symptoms occur, they last for seconds in duration. Symptoms are provoked by rolling to the left in bed and standing up quickly. Keny denies any auditory and visual complaints. Of note, Keny has a history of headaches and migraines, however, they are not associated with dizziness nor occur at similar times/have similar triggers. Keny takes medication for her migraines and reported they localize to the right when they occur. Additionally, Keny reported she has had one seizure in the past. Keny has not fallen two or more times in the past year or fallen once with with injury and reports a fear of falling. Keny is currently using an ambulatory device: a cane. Aforementioned symptoms are impacting Keny's quality of life: she avoids moving quickly and feels like she has to be very careful. Please refer to history of present illness section for further details of presenting symptoms, signs and relevant past medical history. Symptom Ratin/10 today (0 = no symptoms, 10 = severe symptoms). Today's evaluation revealed the following: Findings demonstrate right peripheral vestibular system involvement given the following findings: post head-shake left-beating nystagmus and reduced vestibulo-ocular reflex (VOR) gain with evidence of corrective saccades on video head impulse testing (VHIT). The lesion appears in an uncompensated state physiologically (for eye movements), and functionally (for maintenance of stance). There were no objective indications of Benign Paroxysmal Positional Vertigo; however, symptoms of dizziness were noted with position changes. There were no indications of central vestibulo-ocular pathway involvement noted. Normal oculomotor examination. RECOMMENDATIONS: - Continue medical follow up with Alex Shaffer Jr., MD and Magalys Agustin MD, . - Consider further fall prevention management based on the following falling risk indicators observed during today's evaluation: patient uses a cane and notes significant balance problems with eyes closed. Fall prevention strategies were provided in the after visit summary. 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 Emphasis on the followin) gaze stabilization exercises for VOR gain deficiencies, 2) habituation exercises to reduce triggered symptoms, and 3) general balance/gait exercises to improve functioning during activities of daily living and reduce falling risk. - Consider re-evaluation as medically indicated. - Consider maintaining a healthy sleep schedule in addition to diet, hydration, and exercise. The results and recommendations were explained to Keny Baptiste and her daughter and they expressed understanding of the information. History Present Illness SUMMARY OF PAST MEDICAL HISTORY: Referring provider Alex Prather Jr., MD: per provider's note on 02/21/2023: Patient reporting some new onset dizziness and unsteadiness since last visit. She is describing both room spinning dizziness when she wakes up in the morning, likely vertiginous, resolving within a few minutes. But she is also experiencing unsteadiness with walking, especially when she turns. Notes that she is stumbling and has to brace herself. Denies any falls or weakness. Summary of relevant imaging (directly adapted from report): Normal head MRI 11/29/2022 but cervical spondylosis with canal stenosis c3-4 Previous audiologic evaluation: Not on file. Previously completed vestibular rehabilitation (physical therapy): Yes. Treatment included: Manual neck therapy pelvic rotations. CHIEF COMPLAINT: dizziness and unsteadiness Patient-Entered Questionnaire Scores PROMIS Global Health Scale 12/01/2022 Mental Health Percentile 19* Based on review of the past medical history and chief complaint, the following clinical questions were explored during today's appointment: Are symptoms related to a peripheral vestibular cause such as BPPV or secondary to back pain spine issues? Plan for today's objective vestibular testing based on these clinical questions: Videonystagmography (VNG), Video Head Impulse Test (VHIT), and Rotational Chair Medical History ACTIVE PROBLEM LIST Generalized Convulsive Epilepsy (Hcc) Esophageal Reflux Migraine Without Aura Spinal Stenosis, Lumbar Region, Without Neurogenic Claudication Personal History of Colonic Polyps Diarrhea Abnormal Mammogram, Unspecified Lumbago Cervicalgia Postmenopausal Atrophic Vaginitis Symptomatic Menopausal Or Female Climacteric States Post-Operative State Lichen Planus Hyperlipidemia Dizziness Unsteadiness Medications: Current Outpatient Medications on File Prior to Visit Medication Sig carBAMazepine (TEGRETOL) 200 mg tablet TAKE 1/2 TABLET BY MOUTH IN THE MORNING AND 1.5 TABLETS IN THE EVENING verapamil SR (CALAN SR) 240 mg CR tablet Take 1 tablet by mouth once daily. alendronate (FOSAMAX) 70 mg tablet Take 70 mg by mouth one time a week. In AM with cup of water on empty stomach. Nothing else by mouth and stay upright for 30 min. (Patient not taking: Reported on 02/21/2023) dexamethasone (DECADRON) 0.5 mg/5 mL Take 2 mg by mouth every 12 hours. (Patient not taking: Reported on 10/20/2022) Clobetasol Propionate 0.05 % gel Apply to affected area. omeprazole (PRILOSEC) 20 mg capsule meloxicam (MOBIC) 15 mg tablet Take 1 tablet by mouth once daily. for pain. Take dwith food. rosuvastatin (CRESTOR) 10 mg tablet Take 1 tablet by mouth once daily. Omeprazole 40 mg capsule Take 1 capsule by mouth once daily. (Patient not taking: Reported on 04/04/2019 ) tacrolimus (PROTOPIC) 0.1 % ointment Apply 1 application to affected area twice daily as needed. (Patient not taking: Reported on 10/20/2022) medroxyPROGESTERone (PROVERA, CYCRIN) 10 mg tablet Take once daily for 14 days every 2-3 months (Patient not taking: Reported on 10/20/2022) Estradiol (ESTRACE) 0.5 mg tablet Take 1 tablet by mouth once daily. pyridoxine (VITAMIN B-6) 100 mg tablet Take 1 tablet by mouth once daily. (Patient not taking: Reported on 09/22/2020 ) CALCIUM CARBONATE/VITAMIN D3 (VITAMIN D-3 ORAL) Take by mouth. triamcinolone 0.1 % paste by DENTAL route twice daily. multivitamins w-iron(DAILY MULTIPLE VITAMINS WITH IRON TAB) take one (1) tablet daily BETAMETHASONE, AUGMENTED 0.05 % TOPICAL GEL apply on erosions on mouth 2-3 times a day as needed Current Facility-Administered Medications on File Prior to Visit Medication perflutren lipid microspheres 1.3 mL in NaCl (PF) 0.9% 10 mL injection (DEFINITY) sodium chloride 0.9 % (flush) 10 mL (BD POSIFLUSH) Current medications with potential vestibular/balance side effects include: see bolded (anticonvulsant) Family/Social History FAMILY HISTORY Problem Relation Age of Onset Coronary Artery Disease Mother other (ruptured aaa) Brother other (ruptured aaa) Sister thoracic Ovarian cancer Other Maternal Niece Family history of otologic or neurologic disorders: No Social History Tobacco Use Smoking status: Never Smokeless tobacco: Never Vaping Use Vaping Use: Never used Substance Use Topics Alcohol use: No Drug use: No Physical/Vestibular Evaluation GENERAL: Cognitive Status: Alert, Oriented, and Cooperative EARS: Right ear: Ear canal clear and Eardrum visible Left ear: Ear canal clear and Eardrum visible EYES/OCULOMOTOR: Extra-ocular range of motion (CN III, IV, ): normal. Conjugate eye movements: Yes Smooth pursuit (horizontal and vertical): normal Saccades (horizontal, vertical, oblique): normal Cover uncover test: normal Jonxk-[id number]-ekzck test: normal NECK: Cervical rotation right restrictions: none. Reported pain: none Cervical rotation left restrictions: none. Reported pain: none Cervical extension restrictions: none. Reported pain: none Cervical flexion restrictions: none. Reported pain: none VESTIBULAR: Head impulses of semi-circular canals: normal Ocular counter roll: deferred to protect the patient's neck GAIT AND BALANCE: Observation of gait and transfer: normal. Patient required use of a cane. Additional gait and postural control screening deferred for patient safety. OBJECTIVE VESTIBULAR MEASURES: Videonystagmography Examination (VNG): CPT codes: 67037, 39577, 11519 Description of Procedure: objective assessment of peripheral (e.g., low frequency horizontal canal VOR function), status of compensation, Benign Paroxysmal Positional Vertigo (BPPV), and central vestibulo-ocular pathway (oculomotor examination). Procedure time: 30-45 minutes. Note: The fast component (direction) of all nystagmus is reported from the patient's perspective. Calibration procedure: unremarkable Saccade Performance test (pseudo-random presentation of a laser target; 5 - 50 deg horizontal steps): Latency values: normal Accuracy values: normal Peak Velocity values: normal Reported symptoms: none Pursuit Tracking test (sinusoidal presentation of a laser target; .1-.6 Hz, 10-60 deg/sec): Gain values: normal. Evidence of saccadic pursuit: No. Reported symptoms: none Spontaneous & Gaze-Evoked Nystagmus test: Nystagmus center gaze with fixation: none. Temporal profile: n/a. Saccadic intrusions/oscillations: none. Symptoms: none. Nystagmus center gaze without fixation: none. Temporal profile: n/a. Saccadic intrusions/oscillations: none. Symptoms: none. Nystagmus right gaze with fixation: none.Temporal profile: n/a. Saccadic intrusions/oscillations: none. Symptoms: none. Nystagmus right gaze without fixation: none. Temporal profile: n/a. Saccadic intrusions/oscillations: none. Symptoms: none. Nystagmus left gaze with fixation: none.Temporal profile: n/a. Saccadic intrusions/oscillations: none. Symptoms: none. Nystagmus left gaze without fixation: none. Temporal profile: n/a. Saccadic intrusions/oscillations: none. Symptoms: none. Nystagmus up gaze with fixation: none. Temporal profile: n/a. Saccadic intrusions/oscillations: none. Symptoms: none. Nystagmus up gaze without fixation: none. Temporal profile: n/a. Saccadic intrusions/oscillations: none. Symptoms: none. Nystagmus down gaze with fixation: none. Temporal profile: n/a. Saccadic intrusions/oscillations: none. Symptoms: none. Nystagmus down gaze without fixation: none. Temporal profile: n/a. Saccadic intrusions/oscillations: none. Symptoms: none. Note: remainder of testing completed without fixation unless otherwise specified. Head shaking test: Nystagmus post-horizontal head shake: 7 d/s left-beating. Temporal profile: decaying. Symptoms: didn't like it . Nystagmus post-vertical head shake: none. Temporal profile: n/a. Symptoms: none. Skull vibration-induced nystagmus test (sitting, mastoid vibration right, mastoid vibration left): Nystagmus mastoid vibration right: none. Temporal profile: n/a. Symptoms: none. Nystagmus mastoid vibration left: 5 d/s left-beating. Temporal profile: intermittent. Symptoms: none. Neck torsion test: Nystagmus neck torsion right: none. Temporal profile: n/a. Symptoms: none. Nystagmus neck torsion left: none. Temporal profile: n/a. Symptoms: none. Vertical Semi-circular Canal BPPV Nystagmus tests: Nystagmus [place] right ear down position: none. Temporal profile: n/a. Symptoms: dizziness. Nystagmus [place] right ear return to sit position: none. Temporal profile: n/a. Symptoms: dizziness. Nystagmus [place] left ear down position: none. Temporal profile: n/a. Symptoms: none. Nystagmus [place] left ear return to sit position: none. Temporal profile: n/a. Symptoms: none. Nystagmus straight back head-hanging return to sit position: none. Temporal profile: n/a. Symptoms: none. Horizontal Semi-circular Canal BPPV and Positional Nystagmus tests: Nystagmus head center supine: none.Temporal profile: n/a. Symptoms: none. Nystagmus head (roll) right: none. Temporal profile: n/a. Symptoms: none. Nystagmus head (roll) left: none. Temporal profile: n/a. Symptoms: none. Video Head Impulse Test (VHIT): CPT code: 99479 Description of Procedure: assessment of the angular vestibulo-ocular reflex (VOR) of all six semicircular canals. During vHIT, patients wear infrared goggles and their head is quickly moved in the plane of each semicircular canal. Measurements of VOR gain and corrective saccades are used to determine semicircular canal paresis. Procedure time: 20 minutes. Refer to scanned documents for details for vHIT raw data. Calibration procedure: unremarkable. Camera placement over the right eye. Lateral Canal VHIT: Abnormal. Cannot rule out lateral semicircular canal/VOR pathway involvement in the right ear. Normal lateral semicircular canal VHIT responses in the left ear. (Note: abnormal gain < 0.80) Vertical Canal VHIT: Abnormal. Cannot rule out posterior semicircular canal/VOR involvement in the right ear. Normal anterior and posterior semicircular canal VHIT responses in the left ear. Please note right anterior canal gain was within normal limits. However, there were a few intermittent corrective saccades. (Note: abnormal gain < 0.70) Rotational Chair: CPT code 48193 Description of Procedure: objective assessment of peripheral vestibular system function, in particular bilateral peripheral function (lateral canal VOR function in low-mid frequencies). Procedure time: 20 minutes. Calibration procedure: unremarkable. Sinusoidal Harmonic Acceleration (SHA) testing (at 0.01, 0.04, 0.08, and 0.32 Hz): Gain values: Normal Phase values: Normal Symmetry values: Normal Suppression of vestibulo-ocular reflex (SHA at 0.04 Hz) with visual input: normal. It was my pleasure to evaluate Keny Baptiste. If you have any questions regarding this information, please contact me at [phone]. Tiffanie Whitman BA (Alex) Doctor of Audiology (AuD) Customer Technical Services Manager This appointment was conducted under the direct supervision of Carin Eddy, PhD CCC-A I verify that I have reviewed the history, test results, and interpretation for this patient. Carin Eddy, PhD CCC-A copy to: Alxe Shaffer Jr., MD documented in this encounter [facility] 03-11-2023 Miscellaneous Notes Should be no contraindication. Alex Shaffer MD Received voicemail 03-11-23 at 3:18 PM. Patient returning call. Call back to patient. She states that she received the ZIO to put on. She put it on today and then she looked at her appointments and was wondering if the ZIO would interfere with the vestibular rehab she is scheduled for on 03-18-23. She also called the [employer]IO company and they advised that there were no contraindications. I advised that the office would call her back if there would be any contraindications of having the ZIO on and going to vestibular therapy, but at this time no contraindications were seen. Patient is just concerned, does not want to get all the way to main campus, and then unable to complete visit. Forwarding to Dr. Shaffer for review. Received voicemail 03-11-23 at 10:28 AM. This is Keny Baptiste, date 36. I need to speak to a nurse I can't go through this on our recording. Call back to patient. No answer. Left voicemail to return call. documented in this encounter [facility] 03-03-2023 Note HNO ID: [id number] Author: Jonelle Walker RT(R) Service: ? Author Type: Probate Judge Type: Progress Notes Filed: 03/03/2023 2:27 PM Note Text: Radiology Service Progress Note DATE OF SERVICE: March 03, 2023 TIME: 2:26 PM PATIENT IDENTITY VERIFICATION COMPLETED USING TWO (2) STANDARD IDENTIFIERS: Name and Date of confirmed by patient verbally. FALL SCREENING: Has the patient had 2 falls in the last year or 1 fall with injury or currently using an Ambulatory Assistive Device (Walker, Cane, Wheelchair, Crutches, etc.)? No PATIENT GENDER DATA: Female. status: : No status: NO. PATIENT RELEVANT IMPLANT DATA REVIEWED: Yes ALLERGIES: Reviewed and unchanged CONTRAST ALLERGY: NO. EXAM: CT -CONTRAST INDUCED NEPHROPATHY RISK FACTORS: Patient age > 60 years CREATININE: Creatinine Date Value Ref Range Status 02/21/2023 0.66 0.58 - 0.96 mg/dL Final 03/28/2018 0.78 0.51 - 0.95 mg/dL Final 10/31/2017 0.58 - 0.96 mg/dL Corrected Disregard results. Specimen incorrectly identified. Comment: [id number] SILVIA Account Credited Corrected on 10/31 AT 3677: Previously reported as 1.61 Estimated Glomerular Filtration Rate Date Value Ref Range Status 02/21/2023 87 >=60 mL/min/1.73m? Final Comment: Estimated Glomerular Filtration Rate (eGFR) is calculated using the 2020 CKD-EPI creatinine equation. This equation utilizes serum creatinine, sex, and age as parameters. The creatinine assay has traceable calibration to isotope dilution-mass spectrometry. Refer to KDIGO guidelines for clinical interpretation. In patients with unstable renal function, e.g. those with acute kidney injury, the eGFR may not accurately reflect actual GFR. eGFR- Date Value Ref Range Status 10/31/2017 Corrected Disregard results. Specimen incorrectly identified. Comment: [id number] SILVIA Account Credited Corrected on 10/31 AT 1736: Previously reported as 37 P.O.C.T. RESULTS: POC done: Yes, See Lab Tab March 03, 2023 TREATMENT: N/A PERIPHERAL IV DATA: Ambulatory: A peripheral IV was started in the Left antecubital site with a Angio cath: 18 gauge. RADIOLOGY DEPARTMENT: CT; Exam(s) Completed: Brain , CTA Brain , and CTA Neck SIGNATURE: RT Ketty(R) PATIENT NAME: Keny Baptiste DATE: March 03, 2023 TIME: 2:[address] [facility] 03-03-2023 History of Present illness Narrative Radiology Service Progress Note DATE OF SERVICE: March 03, 2023 TIME: 2:26 PM PATIENT IDENTITY VERIFICATION COMPLETED USING TWO (2) STANDARD IDENTIFIERS: Name and Date of confirmed by patient verbally. FALL SCREENING: Has the patient had 2 falls in the last year or 1 fall with injury or currently using an Ambulatory Assistive Device (Walker, Cane, Wheelchair, Crutches, etc.)? No PATIENT GENDER DATA: Female. status: : No status: NO. PATIENT RELEVANT IMPLANT DATA REVIEWED: Yes ALLERGIES: Reviewed and unchanged CONTRAST ALLERGY: NO. EXAM: CT -CONTRAST INDUCED NEPHROPATHY RISK FACTORS: Patient age > 60 years CREATININE: Creatinine Date Value Ref Range Status 02/21/2023 0.66 0.58 - 0.96 mg/dL Final 03/28/2018 0.78 0.51 - 0.95 mg/dL Final 10/31/2017 0.58 - 0.96 mg/dL Corrected Disregard results. Specimen incorrectly identified. Comment: [id number] SILVIA Account Credited Corrected on 10/31 AT 5737: Previously reported as 1.61 Estimated Glomerular Filtration Rate Date Value Ref Range Status 02/21/2023 87 >=60 mL/min/1.73m Final Comment: Estimated Glomerular Filtration Rate (eGFR) is calculated using the 2020 CKD-EPI creatinine equation. This equation utilizes serum creatinine, sex, and age as parameters. The creatinine assay has traceable calibration to isotope dilution-mass spectrometry. Refer to KDIGO guidelines for clinical interpretation. In patients with unstable renal function, e.g. those with acute kidney injury, the eGFR may not accurately reflect actual GFR. eGFR- Date Value Ref Range Status 10/31/2017 Corrected Disregard results. Specimen incorrectly identified. Comment: [id number] SILVIA Account Credited Corrected on 10/31 AT 1733: Previously reported as 37 P.O.C.T. RESULTS: POC done: Yes, See Lab Tab March 03, 2023 TREATMENT: N/A PERIPHERAL IV DATA: Ambulatory: A peripheral IV was started in the Left antecubital site with a Angio cath: 18 gauge. RADIOLOGY DEPARTMENT: CT; Exam(s) Completed: Brain , CTA Brain , and CTA Neck SIGNATURE: RT Ketty(R) PATIENT NAME: Keny Baptiste DATE: March 03, 2023 TIME: 2:26 PM documented in this encounter [facility] 02-22-2023 Miscellaneous Notes TC to pt who voiced understanding of below. Pt states she will see PCP next month. Lab results faxed to PCP, per request. Brandon Baugh LPN Patient's sodium is low. Tegretol can lower sodium levels, but will have her follow with PCP for further monitoring and evaluation. documented in this encounter [facility] 02-21-2023 Note HNO ID: [id number] Author: Alex Shaffer Jr., MD Service: ? Author Type: Physician Type: Progress Notes Filed: 02/21/2023 1:59 PM Note Text: ESTABLISHED PATIENT VISIT CHIEF COMPLAINT: Follow Up HISTORY OF PRESENT ILLNESS: Keny Baptiste is a 82 year old female, BMI 23.16 kg/m2 with a PMH significant for and per last office visit with Abel DUNN on 10/20/22: 1. 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 Encounter for medication monitoring - ICD9: V58.83, ICD10: Z51.81 Patient without any recurrence of seizure activity, compliant with her Tegretol. Notes that she had recent blood work from her primary care physician in outside facility, including CBC, CMP and Tegretol level. Notes that all of them were within normal range. We will continue on current regimen. 3. Dizziness - ICD9: 780.4, ICD10: R42 4. Unsteadiness - ICD9: 781.2, ICD10: R26.81 Patient reporting some new onset dizziness and unsteadiness since last visit. She is describing both room spinning dizziness when she wakes up in the morning, likely vertiginous, resolving within a few minutes. But she is also experiencing unsteadiness with walking, especially when she turns. Notes that she is stumbling and has to brace herself. Denies any falls or weakness. Denies any signs or symptoms of cord compression at this time including bowel or bladder incontinence, saddle anesthesia. Does report chronic neck pain. Also has difficulty with weakness in bilateral hands but is noted to have bilateral carpal tunnel syndrome. Patient did have sustained leftward nystagmus with horizontal gaze, patient reporting dizziness with this. Regarding her dizziness in the morning, this is likely vertigo, discussed vestibular therapy and patient would like to try this. However, her unsteadiness is a different sensation, concern for cervical stenosis secondary to patient's difficulty with walking, abnormal gait and history of arthritis. We will obtain MRI of the cervical spine to rule out any cord compression or stenosis. Additionally, due to new onset dizziness and gait change, will also obtain MRI of the brain with and without contrast to evaluate for any structural abnormality or stroke that may be contributing patient's symptoms. Patient otherwise doing well, no other neurodeficits other than nystagmus and gait change 5. MELA (obstructive sleep apnea) - ICD9: 327.23, ICD10: G47.33 Stable, patient is using dental device. Sleeping well throughout the night, but still feeling poorly rested in the morning. No morning headaches, no daytime sleepiness other than one reading. 6. Migraine without aura and without status migrainosus, not intractable - ICD9: 346.10, ICD10: G43.009 Stable, on verapamil. 7. Neuropathy - ICD9: 355.9, ICD10: G62.9 Slightly worsened, estimates up to mid tib-fib bilaterally. Deferring further work-up at this time including EMG. Is able to still feel feet, no falls. Discussed that her unsteadiness may be partly contributed by her neuropathy, patient agrees and understands. 8. Bilateral carpal tunnel syndrome - ICD9: 354.0, ICD10: G56.03 Slightly worsening on the left, notes symptoms primarily to the first 3 digits to the hands bilaterally. Does not wear splints at night. Notes difficulty with fine dexterity of hands and holding things. Patient has not seen [facility] in some time, does not want further work-up at this time. MRI brain and C spine completed since time of last visit and not showing a definite acute intracranial process or other etiology of patient's symptoms. Per report: No evidence of an acute intracranial process, mass, or pathologic enhancement. Mild chronic microvascular ischemic changes and generalized volume loss. Multilevel cervical spondylosis and spondylolisthesis with canal stenoses most pronounced at C3-C4. No high-grade foraminal stenosis. No significant cord compression. Normal signal and morphology of the cervical and visualized upper thoracic cord. Anatomic Variant: None. Assume 7 cervical vertebrae with counting from the craniocervical junction. Pt was told by PCP that she has BPPV by description provided by pt. However, pt is describing lightheadedness or near syncope. States can just be standing there and doing nothing in particular. States has occurred about 3 times. Appear associated with activity or positional change and not at rest. She has also had dizziness with positional changs of the head. BURNS, but denies palpitations or chest pain. Headaches stable. Carpal tunnel unchanged but never wore splints. Feet feel cold at times when they are not and more numbness. No seizures. Still using dental appliance. Last episode of fall related to dizziness (into recline) was 2 weeks ago - again near blacking out rather that spinning sensation. Orthostatics: BP sittin/81 with pulse of 74 BP standin (more content not included)... [facility] 02-21-2023 Note HNO ID: [id number] Author: Nahomy Baptiste MD Service: Cardiovascular Surgery Author Type: Physician Type: Procedures Filed: 04/11/2023 10:46 AM Note Text: Patient Name: Keny Baptiste : 1940 Ordering Provider: ALEX SHAFFER JR. Indication: R42 Dizziness and giddiness Type of Monitor: Extended Monitoring-Zio Patch Enrollment Dates: 03/11/2023-03/25/[address] [facility] 02-21-2023 Miscellaneous Notes Zio monitor order, patients demographics and face sheet faxed to [phone] as instructed. JESUS Posadas documented in this encounter [facility] 02-21-2023 History of Present illness Narrative ESTABLISHED PATIENT VISIT CHIEF COMPLAINT: Follow Up HISTORY OF PRESENT ILLNESS: Keny Baptiste is a 82 year old female, BMI 23.16 kg/m2 with a PMH significant for and per last office visit with Abel DUNN on 10/20/22: 1. 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 Encounter for medication monitoring - ICD9: V58.83, ICD10: Z51.81 Patient without any recurrence of seizure activity, compliant with her Tegretol. Notes that she had recent blood work from her primary care physician in outside facility, including CBC, CMP and Tegretol level. Notes that all of them were within normal range. We will continue on current regimen. 3. Dizziness - ICD9: 780.4, ICD10: R42 4. Unsteadiness - ICD9: 781.2, ICD10: R26.81 Patient reporting some new onset dizziness and unsteadiness since last visit. She is describing both room spinning dizziness when she wakes up in the morning, likely vertiginous, resolving within a few minutes. But she is also experiencing unsteadiness with walking, especially when she turns. Notes that she is stumbling and has to brace herself. Denies any falls or weakness. Denies any signs or symptoms of cord compression at this time including bowel or bladder incontinence, saddle anesthesia. Does report chronic neck pain. Also has difficulty with weakness in bilateral hands but is noted to have bilateral carpal tunnel syndrome. Patient did have sustained leftward nystagmus with horizontal gaze, patient reporting dizziness with this. Regarding her dizziness in the morning, this is likely vertigo, discussed vestibular therapy and patient would like to try this. However, her unsteadiness is a different sensation, concern for cervical stenosis secondary to patient's difficulty with walking, abnormal gait and history of arthritis. We will obtain MRI of the cervical spine to rule out any cord compression or stenosis. Additionally, due to new onset dizziness and gait change, will also obtain MRI of the brain with and without contrast to evaluate for any structural abnormality or stroke that may be contributing patient's symptoms. Patient otherwise doing well, no other neurodeficits other than nystagmus and gait change 5. MELA (obstructive sleep apnea) - ICD9: 327.23, ICD10: G47.33 Stable, patient is using dental device. Sleeping well throughout the night, but still feeling poorly rested in the morning. No morning headaches, no daytime sleepiness other than one reading. 6. Migraine without aura and without status migrainosus, not intractable - ICD9: 346.10, ICD10: G43.009 Stable, on verapamil. 7. Neuropathy - ICD9: 355.9, ICD10: G62.9 Slightly worsened, estimates up to mid tib-fib bilaterally. Deferring further work-up at this time including EMG. Is able to still feel feet, no falls. Discussed that her unsteadiness may be partly contributed by her neuropathy, patient agrees and understands. 8. Bilateral carpal tunnel syndrome - ICD9: 354.0, ICD10: G56.03 Slightly worsening on the left, notes symptoms primarily to the first 3 digits to the hands bilaterally. Does not wear splints at night. Notes difficulty with fine dexterity of hands and holding things. Patient has not seen [facility] in some time, does not want further work-up at this time. MRI brain and C spine completed since time of last visit and not showing a definite acute intracranial process or other etiology of patient's symptoms. Per report: No evidence of an acute intracranial process, mass, or pathologic enhancement. Mild chronic microvascular ischemic changes and generalized volume loss. Multilevel cervical spondylosis and spondylolisthesis with canal stenoses most pronounced at C3-C4. No high-grade foraminal stenosis. No significant cord compression. Normal signal and morphology of the cervical and visualized upper thoracic cord. Anatomic Variant: None. Assume 7 cervical vertebrae with counting from the craniocervical junction. Pt was told by PCP that she has BPPV by description provided by pt. However, pt is describing lightheadedness or near syncope. States can just be standing there and doing nothing in particular. States has occurred about 3 times. Appear associated with activity or positional change and not at rest. She has also had dizziness with positional changs of the head. BURNS, but denies palpitations or chest pain. Headaches stable. Carpal tunnel unchanged but never wore splints. Feet feel cold at times when they are not and more numbness. No seizures. Still using dental appliance. Last episode of fall related to dizziness (into recline) was 2 weeks ago - again near blacking out rather that spinning sensation. Orthostatics: BP sittin/81 with pulse of 74 BP standin/84 with pulse of 80 REVIEW OF SYSTEMS GENERAL:No weight loss, malaise or fevers. HEENT:No changes in hearing or vision, no nose bleeds or other nasal problems NECK:Negative for lumps, goiter, pain and significant neck swelling RESPIRATORY: Negative for cough, wheezing or shortness of breath. CARDIOVASCULAR: Negative for chest pain, or palpitations. GASTROINTESTINAL: Negative for abdominal discomfort, blood in stools or black stools or change in bowel habits GENITOURINARY: No history of dysuria, frequency or incontinence MUSCULOSKELETAL: Negative for joint pain or swelling, back pain or muscle pain. NEUROLOGIC:Negative for focal numbness or weakness, headaches and dizziness or syncope, vision changes, speech/languag changes - EXCEPT that as per HPI above. SKIN:Negative for lesions, rash, and itching. LAB/IMAGING: Those performed since patient's last visit have been reviewed. WBC (thou/cmm) Date Value 03/28/2018 4.71 RBC (mil/cmm) Date Value 03/28/2018 4.16 HGB (g/dL) Date Value 03/28/2018 14.0 Hematocrit (%) Date Value 03/28/2018 40.7 MCV (fl) Date Value 03/28/2018 97.8 (H) MCH (pg) Date Value 03/28/2018 33.7 (H) MCHC (%) Date Value 03/28/2018 34.4 RDW-CV (%) Date Value 10/31/2017 Disregard results. Specimen incorrectly identified. Platelet Count (thou/cmm) Date Value 03/28/2018 299 MPV (fl) Date Value 03/28/2018 9.2 (L) Glucose (mg/dL) Date Value 03/28/2018 78 BUN (mg/dL) Date Value 03/28/2018 12 Creatinine (mg/dL) Date Value 03/28/2018 0.78 Sodium (mEq/L) Date Value 03/28/2018 133 (L) Potassium (mEq/L) Date Value 03/28/2018 4.5 Chloride (mEq/L) Date Value 03/28/2018 97 (L) CO2 (mEq/L) Date Value 03/28/2018 31 Protein, Total (g/dL) Date Value 03/28/2018 7.4 Albumin (g/dL) Date Value 03/28/2018 4.4 Calcium (mg/dL) Date Value 03/28/2018 9.4 Alkaline Phosphatase (U/L) Date Value 03/28/2018 80 Bilirubin, Total (mg/dL) Date Value 03/28/2018 0.3 AST (U/L) Date Value 03/28/2018 20 ALT (U/L) Date Value 03/28/2018 24 MEDICATIONS: carBAMazepine (TEGRETOL) 200 mg tablet TAKE 1/2 TABLET BY MOUTH IN THE MORNING AND 1.5 TABLETS IN THE EVENING verapamil SR (CALAN SR) 240 mg CR tablet Take 1 tablet by mouth once daily. Clobetasol Propionate 0.05 % gel Apply to affected area. omeprazole (PRILOSEC) 20 mg capsule meloxicam (MOBIC) 15 mg tablet Take 1 tablet by mouth once daily. for pain. Take with food. rosuvastatin (CRESTOR) 10 mg tablet Take 1 tablet by mouth once daily. Estradiol (ESTRACE) 0.5 mg tablet Take 1 tablet by mouth once daily. CALCIUM CARBONATE/VITAMIN D3 (VITAMIN D-3 ORAL) Take by mouth. triamcinolone 0.1 % paste by DENTAL route twice daily. multivitamins w-iron(DAILY MULTIPLE VITAMINS WITH IRON TAB) take one (1) tablet daily BETAMETHASONE, AUGMENTED 0.05 % TOPICAL GEL apply on erosions on mouth 2-3 times a day as needed alendronate (FOSAMAX) 70 mg tablet Take 70 mg by mouth one time a week. In AM with cup of water on empty stomach. Nothing else by mouth and stay upright for 30 min. (Patient not taking: Reported on 02/21/2023) dexamethasone (DECADRON) 0.5 mg/5 mL Take 2 mg by mouth every 12 hours. (Patient not taking: Reported on 10/20/2022) Omeprazole 40 mg capsule Take 1 capsule by mouth once daily. (Patient not taking: Reported on 04/04/2019 ) tacrolimus (PROTOPIC) 0.1 % ointment Apply 1 application to affected area twice daily as needed. (Patient not taking: Reported on 10/20/2022) medroxyPROGESTERone (PROVERA, CYCRIN) 10 mg tablet Take once daily for 14 days every 2-3 months (Patient not taking: Reported on 10/20/2022) pyridoxine (VITAMIN B-6) 100 mg tablet Take 1 tablet by mouth once daily. (Patient not taking: Reported on 09/22/2020 ) HISTORIES PAST MEDICAL HISTORY Diagnosis Date Benign neoplasm of colon Diarrhea Resolved Esophageal reflux Esophagitis, unspecified Generalized osteoarthrosis, unspecified site Hemorrhage of gastrointestinal tract, unspecified Hemorrhage of gastrointestinal tract, unspecified Hemorrhage of rectum and anus Internal hemorrhoids without mention of complication Internal hemorrhoids without mention of complication Lichen planus oral Migraine without aura, without mention of intractable migraine without mention of status migrainosus Other and unspecified hyperlipidemia Other convulsions Palpitations Resolved SOMNOLENCE 01/03/2006 Spinal stenosis, lumbar region, without neurogenic claudication 04/21/2006 Symptomatic menopausal or female climacteric states Unspecified gastritis and gastroduodenitis without mention of hemorrhage FAMILY HISTORY Problem Relation Age of Onset Coronary Artery Disease Mother other (ruptured aaa) Brother other (ruptured aaa) Sister thoracic Ovarian cancer Other Maternal Niece SOCIAL HISTORY Social History Tobacco Use Smoking status: Never Smokeless tobacco: Never Vaping Use Vaping Use: Never used Substance Use Topics Alcohol use: No Drug use: No PHYSICAL EXAMINATION BP 145/81 Pulse 76 Resp 16 Wt 60.2 kg (132 lb 12.8 oz) SpO2 96% BMI 23.16 kg/m GENERAL EXAM: General appearance: NAD, pleasant. HEENT: NC/AT, nasal congestion absent, no oral lesions, membranes moist. NECK: ROM nml. Lungs: CTA bilaterally. CV: RRR nl S1, S2. No carotid bruits. Extr: No cyanosis, clubbing or edema. Extremity pulses palpable and normal. Skin: Cool to touch. NEUROLOGICAL EXAM: General: Awake, alert, oriented x3 (person,place,time), speech fluent, no dysarthria; comprehension, naming, repetition intact. CN: PERRL, fundi with no evidence of papilledema, EOMI and with horizontal nystagmus on left lateral gaze, VFF to confrontation, facial sensation and strength are normal and symmetric, hearing is intact to finger rub bilaterally, palate and tongue movements are intact and symmetric. SCM and trapezius strength normal. Motor: Normal tone, bulk and strength (5/5) bilaterally (throughout extremities x4). Coordination: FNF, LALO, HTS intact. No tremors. Sensation: Light touch and pin intact. Vibration inconsistent but appears greater at ankles and toes and weakest at patellars. No evidence of neglect. Gait: Stable. Assessment and Plan: ASSESSMENT/PLAN: 1. Dizziness and giddiness - ICD9: 780.4, ICD10: R42 (primary diagnosis) 2. Lightheadedness - ICD9: 780.4, ICD10: R42 Etiology uncertain at this time, with workup thus far unremarkable. Pt is endorsing both symptoms of vertigo as well as presyncope. No definite loc to suggest seizure. No intracranial or cervical spine source identified on workup. Nystagmus would suggest a peripheral etiology (L vestibular system) but Anthony exam performed today (not noted above) unremarkable. Question if BPPV. Will refer for vestibular battery testing as well as vestibular therapy. That said, pt is also endorsing lightheadedness and was orthostatic in office. 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 Will proceed with tilt table, event monitor and ECHO to further evaluate. However, I would also like CTA of head and neck for dedicate evaluation for large vessel disease including VBI. Finally given history of tegretol use will check CMP for hyponatremia and tegretol levels as possible contributing factors. 3. 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 Tegretol levels as above. No change in tegretol dose at this time which pt has been on for some time now with no side effects. 4. High risk medication use - ICD9: V58.69, ICD10: Z79.899 - CARBAM/TEGRETOL F 5. MELA (obstructive sleep apnea) - ICD9: 327.23, ICD10: G47.33 Asx per pt. Encouraged continued use of dental appliance and positional therapy. 6. Migraine without aura and without status migrainosus, not intractable - ICD9: 346.10, ICD10: G43.009 Asx. Continue Verapamil as previously Rx'd for now. 7. Neuropathy - ICD9: 355.9, ICD10: G62.9 No definite change on exam. Pt not wanting EMG. If tilt table +, may need referral to autonomic clinic for further evaluation. Alex Shaffer MD I spent a total of 40 minutes on the date of the service which included preparing to see the patient, [id number] patient care, completing clinical documentation, obtaining and/or reviewing separately obtained history, performing a medically appropriate examination, counseling and educating the patient/family/caregiver, ordering medications, tests, or procedures, independently interpreting results (not separately reported), and communicating results to the patient/family/caregiver. documented in this encounter [facility] 01-12-2023 Miscellaneous Notes Faxed MRI brain/cervical spine results from 11/29/[address] Beavers per Fabi request. Faxed results to [phone]. documented in this encounter [facility] 01-03-2023 Note HNO ID: [id number] Author: Brandon Hercules PT Service: ? Author Type: Physical Therapist Type: Progress Notes Filed: 02/11/2023 11:04 AM Note Text: 02/11/2023 [facility] PHYSICAL THERAPY DISCONTINUANCE OF CARE Plan of Care Period: Start of Care Date: 12/01/22 Last Visit Date: 01/03/2023 Therapy Program: The following is a summary of the interventions provided for this episode of care; Therapeutic exercise, Neuromuscular re-education, and Self-snf management Assessment: Based on most recent visit, patient was progressing slower than expected toward functional goals based on documented subjective information on progress. Unable to formally assess goal achievement, as patient has not returned to therapy or scheduled additional follow-up appointments. Reason for Discontinuation of Care: Patient has not returned to therapy or scheduled additional follow-up appointments. Brandon Hercules PT Episode Visit Count: 3 Therapist That Will Accept/Oversee The Plan Of Care: Brandon Hercules Start of Care Date: 12/01/22 Onset Date: 10/31/22 Plan of Care Certification Date: 12/01/22 Next Certification Due Date: 01/05/23 [facility]AB[facility]ATION [facility] PHYSICAL THERAPY TREATMENT NOTE ASSESSMENT: Keny Baptiste tolerated the session with increased symptoms. She demonstrated improvements in symptoms with lumbar flexion static and repeated movements in the seated and hook lying positions. The patient will continue to benefit from ongoing skilled physical therapy to progress toward set goals. PLAN FOR NEXT VISIT: Continue TA stabilization in hook lying, consider manual txn SUBJECTIVE: Patient Reason for Visit: My back is killing me. Pt. put a topper a her mattress and this didn't help. Pt. reports that lumbar flexion exercises do not help. She has been referred to a pain management physician. Symptoms are worse in the morning. She has now started taking tylenol throughout the day. Denies dizziness since last vist. Denies falls since last visit. Pain: Pain Pain Level: 8 Pain Location: Low Back/Lumbar Spine- Midline Description: Aching Post Treatment Pain Post Treatment Pain Level: Better Post Treatment Pain Location: Low Back/Lumbar Spine- Midline Post Treatment Symptoms: it's not that bad, but it's not the morning. OBJECTIVE MEASURES WITH LEVEL OF FUNCTION: TREATMENT: Therapeutic Exercise: 1: seated lumbar flexion hold 3x30 sec - symptoms abolish 2: hook lying single KTC stretch 3x30 sec each side -- symptoms abolish in this position 3: *hook lying pelvic rotation 2x20 (reports pain with rotation to the left, points to the right low back, she had Left low back pain one rep.) 4: *hook lying B KTC stretch 3x30 sec 5: *hook lying PPT 2x10 Skilled Intervention: Patient was educated in proper exercise technique and purpose for exercises. Skilled judgment was provided in selection of appropriate interventions. Provided written instruction for home exercise program to facilitate proper performance and compliance. Correct performance of therapeutic exercises was facilitated with verbal, visual, and tactile cuing. Educated patient on rationale for performing exercises in regards to decreasing fatigue , increase ease of ADL, and ROM and function . Patient education as noted. Self-Snf Management: 1: *at length, discussed pt. consistently demonstrates a flexion directional preference evidenced by reduced symptoms with lumbar flexion based exercises and increased symptom intensity upon standing and with ambulation 2: *encouraged pt. to complete HEP before getting out of bed in the morning to reduce symptoms that are worse in the morning, emphasized purpose of HEP exercises is to self manage symptoms and to not avoid HEP if pain is increased . Skilled Intervention: Skilled judgment in the selection of proper modification for activity of daily living/home management based on clinical presentation, deficits, and needs. Provided written instruction for activities of daily living techniques to facilitate proper performance and compliance. Reviewed patient specific diagnosis in relation to activities of daily living/home management. Activity progression based on professional judgement. Provided written instruction for home program to facilitate proper performance and compliance. Correct performance of home program was facilitated with verbal, visual, and tactile cueing. Billing Therapeutic Exercise Treatment Minutes: 35 Self-Care/Home Management Treatment Minutes: 5 Total Treatment Time Minutes (timed/untimed): 40 Session Start Time : 1555 Session Stop Time : 1635 Brandon Hercules, PT [facility] 12-29-2022 Miscellaneous Notes Addended by: IVCENTA CHIRINOS on: 12/29/2022 12:18 PM Modules accepted: Orders Will need CBC and CMP before next refill of Tegretol. Refill sent. CHARLES 10/20/22 with MQ NOV 01/12/23 with MQ Refill 09/20/22 with qty: 180 and 0 refills Brandon Baugh LPN [facility]LES Assessment/Plan ASSESSMENT/PLAN: 1. 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 Encounter for medication monitoring - ICD9: V58.83, ICD10: Z51.81 Patient without any recurrence of seizure activity, compliant with her Tegretol. Notes that she had recent blood work from her primary care physician in outside facility, including CBC, CMP and Tegretol level. Notes that all of them were within normal range. We will continue on current regimen. 3. Dizziness - ICD9: 780.4, ICD10: R42 4. Unsteadiness - ICD9: 781.2, ICD10: R26.81 Patient reporting some new onset dizziness and unsteadiness since last visit. She is describing both room spinning dizziness when she wakes up in the morning, likely vertiginous, resolving within a few minutes. But she is also experiencing unsteadiness with walking, especially when she turns. Notes that she is stumbling and has to brace herself. Denies any falls or weakness. Denies any signs or symptoms of cord compression at this time including bowel or bladder incontinence, saddle anesthesia. Does report chronic neck pain. Also has difficulty with weakness in bilateral hands but is noted to have bilateral carpal tunnel syndrome. Patient did have sustained leftward nystagmus with horizontal gaze, patient reporting dizziness with this. Regarding her dizziness in the morning, this is likely vertigo, discussed vestibular therapy and patient would like to try this. However, her unsteadiness is a different sensation, concern for cervical stenosis secondary to patient's difficulty with walking, abnormal gait and history of arthritis. We will obtain MRI of the cervical spine to rule out any cord compression or stenosis. Additionally, due to new onset dizziness and gait change, will also obtain MRI of the brain with and without contrast to evaluate for any structural abnormality or stroke that may be contributing patient's symptoms. Patient otherwise doing well, no other neurodeficits other than nystagmus and gait change. 5. MELA (obstructive sleep apnea) - ICD9: 327.23, ICD10: G47.33 Stable, patient is using dental device. Sleeping well throughout the night, but still feeling poorly rested in the morning. No morning headaches, no daytime sleepiness other than one reading. 6. Migraine without aura and without status migrainosus, not intractable - ICD9: 346.10, ICD10: G43.009 Stable, on verapamil. 7. Neuropathy - ICD9: 355.9, ICD10: G62.9 Slightly worsened, estimates up to mid tib-fib bilaterally. Deferring further work-up at this time including EMG. Is able to still feel feet, no falls. Discussed that her unsteadiness may be partly contributed by her neuropathy, patient agrees and understands. 8. Bilateral carpal tunnel syndrome - ICD9: 354.0, ICD10: G56.03 Slightly worsening on the left, notes symptoms primarily to the first 3 digits to the hands bilaterally. Does not wear splints at night. Notes difficulty with fine dexterity of hands and holding things. Patient has not seen [facility] in some time, does not want further work-up at this time. Patient and agreeable to treatment plan of care at this time, all questions were answered. Discussed concerning signs and symptoms that would warrant evaluation emergency department, patient agrees and understands. Patient to follow-up in 2 months or sooner should any symptoms change or worsen. Vicenta Chirinos PA-C documented in this encounter [facility] 12-17-2022 Note HNO ID: [id number] Author: Brandon Hercules PT Service: ? Author Type: Physical Therapist Type: Progress Notes Filed: 12/17/2022 2:53 PM Note Text: Episode Visit Count: 2 Therapist That Will Accept/Oversee The Plan Of Care: Brandon Hercules Start of Care Date: 12/01/22 Onset Date: 10/31/22 Plan of Care Certification Date: 12/01/22 Next Certification Due Date: 01/05/23 [facility]ATION [facility]TS [facility]AP[facility] PHYSICAL THERAPY TREATMENT NOTE ASSESSMENT: Keny Baptiste tolerated the session with increased symptoms. She demonstrated difficulty with dynamic balance activities on FGA that involved head movement or closing the eyes. Pt. Had the most difficulty with closing the eyes on a compliant surface during mCTSIB testing. The patient will continue to benefit from ongoing skilled physical therapy to progress toward set goals. PLAN FOR NEXT VISIT: balance training, assess symptom response to repeated lumbar flexion directional preference exercises as needed to reduce symptoms following prolonged standing activities. Cores stabilization strengthening in neutral or manual txn. SUBJECTIVE: Patient Reason for Visit: Pt. mentions worsening chronic back pain, it is worse in the morning. Reduces with sitting. Denies vertigo episodes or falls since last visit. She often feels off balance. Patient Goals: improve balance and reduce LBP Pain: Pain Pain Level: 3 Pain Location: Low Back/Lumbar Spine- Midline Description: Aching Post Treatment Pain Post Treatment Pain Level: 0 Post Treatment Pain Location: Low Back/Lumbar Spine- Midline OBJECTIVE MEASURES WITH LEVEL OF FUNCTION: Lumbar Spine AROM Lumbar Extension: Major limitation (feels tighter) Lumbar R Side Carlisle: Produces Lumbar L Side [place]: Moderate limitation Lumbar R Side-Bend: Produces, Major limitation Lumbar L Side-Bend: Moderate limitation Lumbar R Rotation: Normal Lumbar L Rotation: Normal Repeated Test Movements - Lumbar RFIS - Symptoms During: no effect RFIS - Symptoms After: no effect Other Lumbar Repeated Test Movements: Yes Other Repeated Test Movements - Lumbar RFISit / Symptoms During: no effect RFISit / Symptoms After: no effect (pt. reports no change, but rates her pain lower) Static Testing - Lumbar Sit Slouched: better Sit Erect: worse Stand Erect: worse Functional Gait Assessment Gait level surface : 2 - Mild impairment- walks 20' uses assist device, slower speed, mild gait deviation Change in gait speed: 2 - Mild impairment- is able to change speed but demonstrates mild gait deviations or no gait deviations but unable to achieve a significant change in velocity, or uses an assistive device Gait and horizontal head turns: 1 - Moderate impairment- performs R/L head turns with moderate change in gait velocity, slows down, staggers but recovers, can continue to walk Gait and vertical head turns: 1 - Moderate impairment- performs R/L head turns with moderate change in gait velocity, slows down, staggers but recovers, can continue to walk Gait and pivot: 2 - Mild impairment- pivot turns safely in >3 sec, stops, no loss of balance Step over obstacle: 2 - Mild impairment- is able to step over box, but must slow down and adjust steps to clear box Gait with narrow base of support : 2 - Mild impairment- ambulates 7-9 steps Gait with eyes closed : 1 - Moderate impairment- walks 20', slow speed, abnormal gait pattern, evidence for imbalance, deviates 10-15 [address], requires more than 9 sec to ambulate 20 Ambulates backward : 3 - Normal- walks 20' no assist device, good speed, no imbalance, normal gait pattern, deviates no more than 6 [address] Steps: 2 - Mild impairment- alternating feet, must use rail Functional Gait Assessment Total : 18 TREATMENT: Therapeutic Exercise: 1: *seated lumbar flexion 2x10 as needed throughout the day to reduce symptoms following prolonged standing activities 2: standing lumbar flexion, extension, side flexion, side glide each side 1x each 3: *standing lumbar flexion 2x10 (2nd option) Skilled Intervention: Patient was educated in proper exercise technique and purpose for exercises. Skilled judgment was provided in selection of appropriate interventions. Correct performance of therapeutic exercises was facilitated with verbal and visual cuing. Educated patient on rationale for performing exercises in regards to decreasing fatigue , including balance, increase ease of ADL, and ROM and function . Patient education as noted. Neuromuscular Re-Education: 1: romberg firm surface EO 30 sec 2: romberg firm surface EC 30 sec 3: romberg foam surface EO 30 sec 4: romberg foam surface EC x3 attempts 5: FGA test without AD score 18/30 Skilled Intervention: Skilled judgment used to assess appropriate program for balance and coordination activity. Education in proprioceptive/kinesthetic awareness during standing and (more content not included)... [facility] 12-17-2022 History of Present illness Narrative Episode Visit Count: 2 Therapist That Will Accept/Oversee The Plan Of Care: Brandon Hercules Start of Care Date: 12/01/22 Onset Date: 10/31/22 Plan of Care Certification Date: 12/01/22 Next Certification Due Date: 01/05/23 REHABIL[facility]ATION [facility]TS [facility]ERAPY PHYSICAL THERAPY TREATMENT NOTE ASSESSMENT: Keny Baptiste tolerated the session with increased symptoms. She demonstrated difficulty with dynamic balance activities on FGA that involved head movement or closing the eyes. Pt. Had the most difficulty with closing the eyes on a compliant surface during mCTSIB testing. The patient will continue to benefit from ongoing skilled physical therapy to progress toward set goals. PLAN FOR NEXT VISIT: balance training, assess symptom response to repeated lumbar flexion directional preference exercises as needed to reduce symptoms following prolonged standing activities. Cores stabilization strengthening in neutral or manual txn. SUBJECTIVE: Patient Reason for Visit: Pt. mentions worsening chronic back pain, it is worse in the morning. Reduces with sitting. Denies vertigo episodes or falls since last visit. She often feels off balance. Patient Goals: improve balance and reduce LBP Pain: Pain Pain Level: 3 Pain Location: Low Back/Lumbar Spine- Midline Description: Aching Post Treatment Pain Post Treatment Pain Level: 0 Post Treatment Pain Location: Low Back/Lumbar Spine- Midline OBJECTIVE MEASURES WITH LEVEL OF FUNCTION: Lumbar Spine AROM Lumbar Extension: Major limitation (feels tighter) Lumbar R Side Carlisle: Produces Lumbar L Side Carl[place]: Moderate limitation Lumbar R Side-Bend: Produces, Major limitation Lumbar L Side-Bend: Moderate limitation Lumbar R Rotation: Normal Lumbar L Rotation: Normal Repeated Test Movements - Lumbar RFIS - Symptoms During: no effect RFIS - Symptoms After: no effect Other Lumbar Repeated Test Movements: Yes Other Repeated Test Movements - Lumbar RFISit / Symptoms During: no effect RFISit / Symptoms After: no effect (pt. reports no change, but rates her pain lower) Static Testing - Lumbar Sit Slouched: better Sit Erect: worse Stand Erect: worse Functional Gait Assessment Gait level surface : 2 - Mild impairment- walks 20' uses assist device, slower speed, mild gait deviation Change in gait speed: 2 - Mild impairment- is able to change speed but demonstrates mild gait deviations or no gait deviations but unable to achieve a significant change in velocity, or uses an assistive device Gait and horizontal head turns: 1 - Moderate impairment- performs R/L head turns with moderate change in gait velocity, slows down, staggers but recovers, can continue to walk Gait and vertical head turns: 1 - Moderate impairment- performs R/L head turns with moderate change in gait velocity, slows down, staggers but recovers, can continue to walk Gait and pivot: 2 - Mild impairment- pivot turns safely in >3 sec, stops, no loss of balance Step over obstacle: 2 - Mild impairment- is able to step over box, but must slow down and adjust steps to clear box Gait with narrow base of support : 2 - Mild impairment- ambulates 7-9 steps Gait with eyes closed : 1 - Moderate impairment- walks 20', slow speed, abnormal gait pattern, evidence for imbalance, deviates 10-[address], requires more than 9 sec to ambulate 20 Ambulates backward : 3 - Normal- walks 20' no assist device, good speed, no imbalance, normal gait pattern, deviates no more than [address] Steps: 2 - Mild impairment- alternating feet, must use rail Functional Gait Assessment Total : 18 TREATMENT: Therapeutic Exercise: 1: *seated lumbar flexion 2x10 as needed throughout the day to reduce symptoms following prolonged standing activities 2: standing lumbar flexion, extension, side flexion, side glide each side 1x each 3: *standing lumbar flexion 2x10 (2nd option) Skilled Intervention: Patient was educated in proper exercise technique and purpose for exercises. Skilled judgment was provided in selection of appropriate interventions. Correct performance of therapeutic exercises was facilitated with verbal and visual cuing. Educated patient on rationale for performing exercises in regards to decreasing fatigue , including balance, increase ease of ADL, and ROM and function . Patient education as noted. Neuromuscular Re-Education: 1: romberg firm surface EO 30 sec 2: romberg firm surface EC 30 sec 3: romberg foam surface EO 30 sec 4: romberg foam surface EC x3 attempts 5: FGA test without AD score 18/30 Skilled Intervention: Skilled judgment used to assess appropriate program for balance and coordination activity. Education in proprioceptive/kinesthetic awareness during standing and dynamic activities. Ensured patient safety with use of gait belt. Patient education as noted. Self-Snf Management: 1: *discussed FGA test results and pt. fall risk 2: *strongly encouraged continued PT visits to improve balance and reduce fall risk 3: *discussed the 3 systems of balance while completing the mCTSIB Skilled Intervention: Skilled judgment in the selection of proper modification for activity of daily living/home management based on clinical presentation, deficits, and needs. Educated the patient regarding recommendations and provided written instruction to facilitate compliance. Reviewed patient specific diagnosis in relation to activities of daily living/home management. Activity progression based on professional judgement. Billing Therapeutic Exercise Treatment Minutes: 10 Neuromuscular Re-Education Treatment Minutes: 25 Self-Care/Home Management Treatment Minutes: 5 Total Treatment Time Minutes (timed/untimed): 40 Brandon Hercules PT documented in this encounter [facility] 12-01-2022 Note HNO ID: [id number] Author: Brandon Hercules PT Service: ? Author Type: Physical Therapist Type: Progress Notes Filed: 12/01/2022 12:53 PM Note Text: Episode Visit Count: 1 Therapist That Will Accept/Oversee The Plan Of Care: Brandon Hercules Start of Care Date: 12/01/22 Onset Date: 10/31/22 Plan of Care Certification Date: 12/01/22 Next Certification Due Date: 01/05/23 Patient Identified by Name and Date of : Yes REHABILITATION AND SPORTS THERAPY PHYSICAL THERAPY EVALUATION PLAN OF CARE: Assessment: Keny Baptiste presents with diagnosis of dizziness and unsteadiness that interferes with bending, walking in the community . She presents with impairments in ADL's, balance, gait, independence in exercise, joint mobility, overall function, patient reported outcome measures, posture, range of motion, strength, and symptom management. PROMIS? (Patient-Reported Outcomes Measurement Information System) scores were reviewed and physical function domain and self efficacy domain identified as a rehabilitation concern. Prognosis for therapy is Good due to: current objective clinical presentation . She will benefit from skilled therapy services to meet the goals established for this plan of care as noted below. Goals for Episode of Care: created on 12/01/22 through 01/12/23 Patient will be able to correct postural deviations independently in order to allow for normal mechanics, to decrease current pain and prevent future recurrence. Patient will be able to decrease low back pain by 2 points/10 at rest and with functional activities. Patient will improve FGA to 22 or greater in order to perform functional tasks with improved stability. Patient will demonstrate normal active cervical spine range of motion to restore posture and complete ADLS with trace report of dizziness/imbalance. Patient will be independent with home exercise program and progression. Patient will return to prior level of function with all activities of daily living with trace reports of dizziness. Patient Goals: improve balance and reduce LBP Planned Interventions, Frequency, and Duration: Current Frequency: 1x/week (Pt. requests 1x/week) Duration: 6 weeks Total Number of Visits Planned: 6 Planned Treatment Interventions: Canalith Repositioning Maneuvers (97445), Gait Training (00493), Self-snf management (03066), Therapeutic activities (00457), Manual therapy (08562), Neuromuscular re-education (69518), Therapeutic exercise (49929) PLAN FOR NEXT VISIT: FGA balance testing, assess lumbar spine pain Patient demonstrates good understanding of plan of care and treatment. The above goals and plan of care were discussed and agreed upon by patient/family. SUBJECTIVE: Keny Baptiste is a 82 year old female seen today for for vertigo symptoms with supine <> sitting and turning the head. Pt. describes symptoms as sudden, room spinning, and lasting only a few moments. Resolves completely with being still. No dizziness felt at rest. Pt. has not had another episode of vertigo with positional changes for at least a month. MRI of head/neck shows cervical spine degenerative changes. Pt. mentions unsteadiness on her feet due to weakness as well as chronic LBP. She has a history of lumbar spinal fusion as well as BLE GABRIEL. The left GABRIEL was revised due to incorrect size. She reports that her neck doesn't bother her much, but she has very limited activity tolerance with standing/ambulation. She notices that she sways side to side. Feels better upon sitting or using a shopping cart. Does not use a cane. Denies falls Patient Goals: improve balance and reduce LBP Functional Limitations: bending, walking in the community Prior Level of Function: Independent without limitations Relevant History Past Relevant Medical Conditions: Seizures (epilepsy, x2 seizures in lifetime per chart, BLE neuropathy) Past Relevant Surgical Conditions: Total Hip Replacement-Right, Total Hip Replacement-Left, Spine fusion - Lumbar (L4-L5) Hobbies / Interests: gardening Intake Information: Prescription present Previous Treatment: None Falls Interview: No positive findings with falls interview Concussion History of Concussion: No Vestibular Symptoms present for: months Symptom onset: sudden Dizziness: Yes Description: vertigo, spinning (room) Rating of current symptoms: 0/10 Frequency: Intermittent Duration: minutes Symptoms worsened by: turning head quickly Symptoms improved by: being still Imbalance: Yes Imbalance triggered by: Walking, Bending (weakness) Imbalance Comments: does not use cane. Fall Assessment: No falls Nausea: no Motion Sickness: None Headache: No Neck Symptoms: Yes Description: aching Rating of current symptoms: 0/10 Location: paraspinal region Location comment: not currently bothering her Frequency: Intermittent Symptoms worsened by: walking Jaw Symptoms: No E (more content not included)... [facility] [facility] 12-01-2022 History of Present illness Narrative Episode Visit Count: 1 Therapist That Will Accept/Oversee The Plan Of Care: Brandon Hercules Start of Care Date: 12/01/22 Onset Date: 10/31/22 Plan of Care Certification Date: 12/01/22 Next Certification Due Date: 01/05/23 Patient Identified by Name and Date of : Yes REHABILITATION AND SPORTS THERAPY PHYSICAL THERAPY EVALUATION PLAN OF CARE: Assessment: Keny Baptiste presents with diagnosis of dizziness and unsteadiness that interferes with bending, walking in the community . She presents with impairments in ADL's, balance, gait, independence in exercise, joint mobility, overall function, patient reported outcome measures, posture, range of motion, strength, and symptom management. PROMIS (Patient-Reported Outcomes Measurement Information System) scores were reviewed and physical function domain and self efficacy domain identified as a rehabilitation concern. Prognosis for therapy is Good due to: current objective clinical presentation . She will benefit from skilled therapy services to meet the goals established for this plan of care as noted below. Goals for Episode of Care: created on 12/01/22 through 01/12/23 Patient will be able to correct postural deviations independently in order to allow for normal mechanics, to decrease current pain and prevent future recurrence. Patient will be able to decrease low back pain by 2 points/10 at rest and with functional activities. Patient will improve FGA to 22 or greater in order to perform functional tasks with improved stability. Patient will demonstrate normal active cervical spine range of motion to restore posture and complete ADLS with trace report of dizziness/imbalance. Patient will be independent with home exercise program and progression. Patient will return to prior level of function with all activities of daily living with trace reports of dizziness. Patient Goals: improve balance and reduce LBP Planned Interventions, Frequency, and Duration: Current Frequency: 1x/week (Pt. requests 1x/week) Duration: 6 weeks Total Number of Visits Planned: 6 Planned Treatment Interventions: Canalith Repositioning Maneuvers (55513), Gait Training (28681), Self-snf management (91810), Therapeutic activities (22513), Manual therapy (66158), Neuromuscular re-education (06201), Therapeutic exercise (34470) PLAN FOR NEXT VISIT: FGA balance testing, assess lumbar spine pain Patient demonstrates good understanding of plan of care and treatment. The above goals and plan of care were discussed and agreed upon by patient/family. SUBJECTIVE: Keny Baptiste is a 82 year old female seen today for for vertigo symptoms with supine <> sitting and turning the head. Pt. describes symptoms as sudden, room spinning, and lasting only a few moments. Resolves completely with being still. No dizziness felt at rest. Pt. has not had another episode of vertigo with positional changes for at least a month. MRI of head/neck shows cervical spine degenerative changes. Pt. mentions unsteadiness on her feet due to weakness as well as chronic LBP. She has a history of lumbar spinal fusion as well as BLE GABRIEL. The left GABRIEL was revised due to incorrect size. She reports that her neck doesn't bother her much, but she has very limited activity tolerance with standing/ambulation. She notices that she sways side to side. Feels better upon sitting or using a shopping cart. Does not use a cane. Denies falls Patient Goals: improve balance and reduce LBP Functional Limitations: bending, walking in the community Prior Level of Function: Independent without limitations Relevant History Past Relevant Medical Conditions: Seizures (epilepsy, x2 seizures in lifetime per chart, BLE neuropathy) Past Relevant Surgical Conditions: Total Hip Replacement-Right, Total Hip Replacement-Left, Spine fusion - Lumbar (L4-L5) Hobbies / Interests: gardening Intake Information: Prescription present Previous Treatment: None Falls Interview: No positive findings with falls interview Concussion History of Concussion: No Vestibular Symptoms present for: months Symptom onset: sudden Dizziness: Yes Description: vertigo, spinning (room) Rating of current symptoms: 0/10 Frequency: Intermittent Duration: minutes Symptoms worsened by: turning head quickly Symptoms improved by: being still Imbalance: Yes Imbalance triggered by: Walking, Bending (weakness) Imbalance Comments: does not use cane. Fall Assessment: No falls Nausea: no Motion Sickness: None Headache: No Neck Symptoms: Yes Description: aching Rating of current symptoms: 0/10 Location: paraspinal region Location comment: not currently bothering her Frequency: Intermittent Symptoms worsened by: walking Jaw Symptoms: No Ear Symptoms: No Hearing Changes: No recent changes Tinnitus: No recent changes Sleep Affected by Symptoms: Not affected by dizziness, not affected by pain History of Syncope: No History of Migraine: Yes Pain: PROMIS Scales Higher is Better 12/01/2022 Phys Func - Score 34 (moderate dysfunction) Phys Func - Percentile 5 % Self-Eff Symptom - Score 43 (Average) Self-Eff Symptom - Percentile 24 % T-scores: mean of general population = 50. 5 points is clinically meaningfully difference Percentiles provide an indication of how the patient's score ranks in relation to the general population. Higher percentile rankings indicate better function/quality of life. 50th percentile is the average of the general population and indicates half of respondents had a worse score. OBJECTIVE MEASURES WITH LEVEL OF FUNCTION: Posture / Alignment Posture: Forward head, Increased thoracic kyphosis Oculomotor Testing Fixation Present Ocular ROM: WNL Spontaneous Nystagmus: No nystagmus Gaze Evoked Nystagmus: Not Present Smooth pursuit: Horizontal, Vertical and Diagonal all WNL Saccadic eye movements: Horizontal, vertical and oblique all WNL. Oculomotor Testing Fixation Removed Gaze Evoked Nystagmus: Not present Head Shake: Negative Positional Testing Right [place]: Asymptomatic, No nystagmus Left [place]: No nystagmus, Asymptomatic Right Ear Down: Asymptomatic, No nystagmus Left Ear Down: Asymptomatic, No nystagmus Gait Gait: Independent Gait Distance (feet): 100 Gait Device: None Gait Deviations: General Deviations General Deviations/Observations: Shuffling Gait, Flexed trunk posture, Arm swing decreased, Step length decreased, Lateral sway increased Education: Education Learning Preferences: Demonstration, Explanation, Performance Barriers: None Learning/educational needs: Plan of Care, Home exercise program, Gait Training, Safety, Posture Education Provided: Yes, see treatment interventions for education provided Education Provided To: Patient Education Mode/Type: Demonstration, Explanation/Discussion, Performance Response to Education/Teach Back: States/Identifies, Return Demonstration TREATMENT: PT Treatment Interventions: Self-Snf Management Evaluation Self-Snf Management: 1: *discussed at length BPPV dx, used images to discuss the role of the vestibular system. Explained negative VNG testing today 2: *discussed plan to test and treat imbalance next visit, while considering low back pain and BLE strength limitations reported by pt. today. Will also assess LE strength. Skilled Intervention: Skilled judgment in the selection of proper modification for activity of daily living/home management based on clinical presentation, deficits, and needs. Reviewed patient specific diagnosis in relation to activities of daily living/home management. Activity progression based on professional judgement. Moderate verbal cues for maintaining neutral spine alignment. Reviewed and educated patient on additions/changes for home program as noted above with an (*). Billing * Evaluation Low Complexity: 1 Unit Self-Care/Home Management Treatment Minutes: 20 Total Treatment Time Minutes (timed/untimed): 40 Brandon Hercules PT documented in this encounter [facility] 11-30-2022 Miscellaneous Notes TC to pt with results. Pt will call general neurology number to make follow up appointment with the spine clinic. Brandon Baugh LPN MRI of the brain shows chronic changes but nothing acute. MRI of the cervical spine does show mild to moderate narrowing of the spinal canal as well as some degenerative changes. However, there is no acute pinching or compression of the spinal cord and the actual spinal cord looks normal. For this, would like to see a spinal specialist to monitor this condition and for further evaluation. Consult has been placed. documented in this encounter [facility] 11-29-2022 Note HNO ID: [id number] Author: GARCIA Boucher) Service: ? Author Type: Technologist Type: Progress Notes Filed: 11/29/2022 1:51 PM Note Text: Radiology Service Progress Note DATE OF SERVICE: November 29, 2022 TIME: 1:51 PM PATIENT IDENTITY VERIFICATION COMPLETED USING TWO (2) STANDARD IDENTIFIERS: Name and Date of confirmed by patient verbally. FALL SCREENING: Has the patient had 2 falls in the last year or 1 fall with injury or currently using an Ambulatory Assistive Device (Walker, Cane, Wheelchair, Crutches, etc.)? No PATIENT GENDER DATA: Female. status: : No status: NO. PATIENT RELEVANT IMPLANT DATA REVIEWED: Yes ALLERGIES: Reviewed and unchanged CONTRAST ALLERGY: NO. EXAM: MRI - CONTRAST TYPE: GROUP II PERIPHERAL IV DATA: Ambulatory: A peripheral IV was started in the Left antecubital site with a Angio cath: 22 gauge. RADIOLOGY DEPARTMENT: MR; Exam(s) Completed: Head: Routine Brain Spine: Cervical spine SIGNATURE: RT Sander(Quinn) PATIENT NAME: Keny Baptiste DATE: November 29, 2022 TIME: 1:[address] [facility] 11-29-2022 History of Present illness Narrative Radiology Service Progress Note DATE OF SERVICE: November 29, 2022 TIME: 1:51 PM PATIENT IDENTITY VERIFICATION COMPLETED USING TWO (2) STANDARD IDENTIFIERS: Name and Date of confirmed by patient verbally. FALL SCREENING: Has the patient had 2 falls in the last year or 1 fall with injury or currently using an Ambulatory Assistive Device (Walker, Cane, Wheelchair, Crutches, etc.)? No PATIENT GENDER DATA: Female. status: : No status: NO. PATIENT RELEVANT IMPLANT DATA REVIEWED: Yes ALLERGIES: Reviewed and unchanged CONTRAST ALLERGY: NO. EXAM: MRI - CONTRAST TYPE: GROUP II PERIPHERAL IV DATA: Ambulatory: A peripheral IV was started in the Left antecubital site with a Angio cath: 22 gauge. RADIOLOGY DEPARTMENT: MR; Exam(s) Completed: Head: Routine Brain Spine: Cervical spine SIGNATURE: RT Sander(R) PATIENT NAME: Keny Baptiste DATE: November 29, 2022 TIME: 1:51 PM documented in this encounter [facility] 11-11-2022 Miscellaneous Notes Pt has follow up with Vicenta Chirinos January 2023. Brandon Baugh LPN Note pt needs follow up to review BP, confirm control of symptoms and check labs. Alex Shaffer MD Last OV: 10/20/22 - Next appt scheduled: 01/12/23 Patient has been identified by name and date of : Yes Requested Prescriptions Pending Prescriptions Disp Refills verapamil SR (CALAN SR) 240 mg CR tablet 90 tablet 1 Sig: Take 1 tablet by mouth once daily. RX INSTRUCTIONS: Patient aware RX will be sent to pharmacy. No need to notify patient. Casandra Major LPN documented in this encounter [facility] 10-20-2022 Note HNO ID: [id number] Author: Vicenta Chirinos PA-C Service: ? Author Type: Physician Cio Type: Progress Notes Filed: 10/20/2022 4:40 PM Note Text: ESTABLISHED PATIENT VISIT Last visit: 06/26/[address] Shaffer ASSESSMENT/PLAN: 1. 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 No side effects on Tegretol. Would like to continue on Tegretol dose with no changes. Last level 9 months ago. Will have drawn with PCP yearly labs. Will confirm Na stable at that time. Seizure risks and precautions reviewed with pt. 2. MELA (obstructive sleep apnea) - ICD9: 327.23, ICD10: G47.33 Using oral airway appliance without issues. No symptoms. Pt not wanting follow up sleep testing at this time. Will monitor clinically. 3. Migraine without aura and without status migrainosus, not intractable - ICD9: 346.10, ICD10: G43.009 Asx so long as pt on Verapamil SR as above. No side effects or ADRs. No changes to medications at this time. 4. Neuropathy - ICD9: 355.9, ICD10: G62.9 Continues to have discomfort in feet as above. However, labs workup unremarkable. Pt would like to hold on additional workup or treatment at this time feeling that it has not progressed and not interfering with daily activities. 5. Bilateral carpal tunnel syndrome - ICD9: 354.0, ICD10: G56.03 Has appointment to see specialist as above. Follow up 1 year. Alex Shaffer MD CHIEF COMPLAINT: follow up HISTORY OF PRESENT ILLNESS: Keny Baptiste is a 82 year old female, There were no vitals taken for this visit. with a PMH significant for generalized convulsive epilepsy, migraine, hyperlipidemia, lumbar stenosis. Last tegretol level drawn 10/20/21 and was 2.4 in our records. Patient reports that she had recent blood work at her primary care including CBC, CMP and tegretol level and everything was WNL. Regarding seizures, patient states she has not had recurrence of any seizures, notes that she is only had 2 episodes during her life. Notes that these were during her sleep, woke up with tongue biting. Denies any recent tongue biting, no incontinence on waking up. Regarding sleep apnea, is compliant with her oral device, sleeping well at night, attributing this to her Tegretol. Notes that she is rather fatigued when waking up, but does not take daily naps. Notes that she becomes fatigued if she reads during the day. No headaches in the morning, feels well otherwise. Regarding her migraines, patient states that she is completely resolved after starting verapamil many years ago. No recurrence of headaches. Regarding neuropathy, notes that she does have some mild worsening of her hands and feet, primarily her feet. 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 She states she can still feel her feet, but states that they feel chilled, although to the touch they are not cold. No falls, no weakness. Patient has declined EMG in the past, laboratory studies have been unremarkable. No history of diabetes. Patient states that she does not wear her splints at night, notes some difficulty playing cards and using her hands during the day. Since last visit, patient has been diagnosed with osteoporosis, started on Fosamax for this. Otherwise no new diagnoses or medication changes. Patient does report new symptom of feeling unsteady, dizzy. Describes 2 different feelings. First is unsteadiness. Notes that she is gradually had a feeling of unsteadiness with turning, feels as if she is stumbling. This is a brief sensation, resolves after bracing herself after movement. No falls, but states that she has tripped. She notes that this is gradually worsening over the last few months. Notes history of MRI of the brain in the past, but not for many years. Patient does endorse chronic neck pain, but denies any bowel or bladder incontinence, no saddle anesthesia, no weakness of the lower extremities. Does note chronic weakness of the hands but notes chronic carpal tunnel syndrome bilaterally. Patient also describing some dizziness and room spinning sensation. This occurs in the morning when she turns her head. Described as if the room is shifting or moving, lasting for a few minutes and resolves completely. Not brought on by any other movement or activity, only in the morning. No other symptoms associated with this including tinnitus, hearing changes, vision changes, headache. No other new symptoms today. REVIEW OF SYSTEMS GENERAL:No weight loss, malaise or fevers. HEENT:Negative for frequent or significant headaches, No changes in hearing or vision, no nose bleeds or other nasal problems NECK:Negative for lumps, goiter, pain and significant neck swelling RESPIRATORY: Negative for cough, wheezing or shortness of breath. CARDIOVASCULAR: Negative for chest pain, leg swelling or palpitations. GASTROINTESTINAL: Negative for abdominal discomfort, blood in stools or (more content not included)... [facility] 10-20-2022 Instructions Vicenta Chirinos PA-C - 10/20/2022 4:19 PM EDT Continue medication regimen MRI of the brain and neck Vestibular therapy Follow up in 2 months documented in this encounter [facility] 10-20-2022 History of Present illness Narrative ESTABLISHED PATIENT VISIT Last visit: 06/26/[address] Shaffer ASSESSMENT/PLAN: 1. 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 No side effects on Tegretol. Would like to continue on Tegretol dose with no changes. Last level 9 months ago. Will have drawn with PCP yearly labs. Will confirm Na stable at that time. Seizure risks and precautions reviewed with pt. 2. MELA (obstructive sleep apnea) - ICD9: 327.23, ICD10: G47.33 Using oral airway appliance without issues. No symptoms. Pt not wanting follow up sleep testing at this time. Will monitor clinically. 3. Migraine without aura and without status migrainosus, not intractable - ICD9: 346.10, ICD10: G43.009 Asx so long as pt on Verapamil SR as above. No side effects or ADRs. No changes to medications at this time. 4. Neuropathy - ICD9: 355.9, ICD10: G62.9 Continues to have discomfort in feet as above. However, labs workup unremarkable. Pt would like to hold on additional workup or treatment at this time feeling that it has not progressed and not interfering with daily activities. 5. Bilateral carpal tunnel syndrome - ICD9: 354.0, ICD10: G56.03 Has appointment to see specialist as above. Follow up 1 year. Alex Shaffer MD CHIEF COMPLAINT: follow up HISTORY OF PRESENT ILLNESS: Keny Baptiste is a 82 year old female, There were no vitals taken for this visit. with a PMH significant for generalized convulsive epilepsy, migraine, hyperlipidemia, lumbar stenosis. Last tegretol level drawn 5/10/22 and was 2.4 in our records. Patient reports that she had recent blood work at her primary care including CBC, CMP and tegretol level and everything was WNL. Regarding seizures, patient states she has not had recurrence of any seizures, notes that she is only had 2 episodes during her life. Notes that these were during her sleep, woke up with tongue biting. Denies any recent tongue biting, no incontinence on waking up. Regarding sleep apnea, is compliant with her oral device, sleeping well at night, attributing this to her Tegretol. Notes that she is rather fatigued when waking up, but does not take daily naps. Notes that she becomes fatigued if she reads during the day. No headaches in the morning, feels well otherwise. Regarding her migraines, patient states that she is completely resolved after starting verapamil many years ago. No recurrence of headaches. Regarding neuropathy, notes that she does have some mild worsening of her hands and feet, primarily her feet. 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 She states she can still feel her feet, but states that they feel chilled, although to the touch they are not cold. No falls, no weakness. Patient has declined EMG in the past, laboratory studies have been unremarkable. No history of diabetes. Patient states that she does not wear her splints at night, notes some difficulty playing cards and using her hands during the day. Since last visit, patient has been diagnosed with osteoporosis, started on Fosamax for this. Otherwise no new diagnoses or medication changes. Patient does report new symptom of feeling unsteady, dizzy. Describes 2 different feelings. First is unsteadiness. Notes that she is gradually had a feeling of unsteadiness with turning, feels as if she is stumbling. This is a brief sensation, resolves after bracing herself after movement. No falls, but states that she has tripped. She notes that this is gradually worsening over the last few months. Notes history of MRI of the brain in the past, but not for many years. Patient does endorse chronic neck pain, but denies any bowel or bladder incontinence, no saddle anesthesia, no weakness of the lower extremities. Does note chronic weakness of the hands but notes chronic carpal tunnel syndrome bilaterally. Patient also describing some dizziness and room spinning sensation. This occurs in the morning when she turns her head. Described as if the room is shifting or moving, lasting for a few minutes and resolves completely. Not brought on by any other movement or activity, only in the morning. No other symptoms associated with this including tinnitus, hearing changes, vision changes, headache. No other new symptoms today. REVIEW OF SYSTEMS GENERAL:No weight loss, malaise or fevers. HEENT:Negative for frequent or significant headaches, No changes in hearing or vision, no nose bleeds or other nasal problems NECK:Negative for lumps, goiter, pain and significant neck swelling RESPIRATORY: Negative for cough, wheezing or shortness of breath. CARDIOVASCULAR: Negative for chest pain, leg swelling or palpitations. GASTROINTESTINAL: Negative for abdominal discomfort, blood in stools or black stools or change in bowel habits GENITOURINARY: No history of dysuria, frequency or incontinence MUSCULOSKELETAL: Negative for joint pain or swelling, back pain or muscle pain. NEUROLOGIC:Negative for focal numbness or weakness, headaches and dizziness or syncope, vision changes, speech/languag changes - EXCEPT that as per HPI above. SKIN:Negative for lesions, rash, and itching. PSYCHIATRIC: Negative for sleep disturbance, mood disorder and recent psychosocial stressors. HEMATOLOGIC/LYMPHATIC/IMMUNOLOGIC: Negative for prolonged bleeding, bruising easily or swollen nodes. ENDOCRINE: Negative for cold or heat intolerance, polyuria, polydipsia and goiter. The remainder of the ROS was reviewed and is negative. LAB/IMAGING: Those performed since patient's last visit have been reviewed. none MEDICATIONS: alendronate (FOSAMAX) 70 mg tablet Take 70 mg by mouth one time a week. In AM with cup of water on empty stomach. Nothing else by mouth and stay upright for 30 min. carBAMazepine (TEGRETOL) 200 mg tablet TAKE 1/2 TAB IN AM AND 1 AND 1/2 TAB IN PM. Clobetasol Propionate 0.05 % gel Apply to affected area. omeprazole (PRILOSEC) 20 mg capsule meloxicam (MOBIC) 15 mg tablet Take 1 tablet by mouth once daily. for pain. Take with food. rosuvastatin (CRESTOR) 10 mg tablet Take 1 tablet by mouth once daily. Estradiol (ESTRACE) 0.5 mg tablet Take 1 tablet by mouth once daily. CALCIUM CARBONATE/VITAMIN D3 (VITAMIN D-3 ORAL) Take by mouth. triamcinolone 0.1 % paste by DENTAL route twice daily. multivitamins w-iron(DAILY MULTIPLE VITAMINS WITH IRON TAB) take one (1) tablet daily BETAMETHASONE, AUGMENTED 0.05 % TOPICAL GEL apply on erosions on mouth 2-3 times a day as needed iv contrast (will be provided with radiology test) MRI Brain Inject, intravenously, once for 1 dose.No IV access, insert saline lock prior to beginning of sedation, infusion, injection of imaging exam.Discontinue saline lock post exam. If Pt. has a central line or IVAD, may access for administration according to line specific nursing protocol.Once exam is complete flush line and de-access according to line specific nursing protocol in the MR contrast administration guidelines link verapamil SR (CALAN SR, ISOPTIN SR) 240 mg CR tablet Take 1 tablet by mouth once daily. dexamethasone (DECADRON) 0.5 mg/5 mL Take 2 mg by mouth every 12 hours. (Patient not taking: Reported on 10/20/2022) Omeprazole 40 mg capsule Take 1 capsule by mouth once daily. (Patient not taking: Reported on 04/04/2019 ) tacrolimus (PROTOPIC) 0.1 % ointment Apply 1 application to affected area twice daily as needed. (Patient not taking: Reported on 10/20/2022) medroxyPROGESTERone (PROVERA, CYCRIN) 10 mg tablet Take once daily for 14 days every 2-3 months (Patient not taking: Reported on 10/20/2022) pyridoxine (VITAMIN B-6) 100 mg tablet Take 1 tablet by mouth once daily. (Patient not taking: Reported on 09/22/2020 ) HISTORIES PAST MEDICAL HISTORY Diagnosis Date Benign neoplasm of colon Diarrhea Resolved Esophageal reflux Esophagitis, unspecified Generalized osteoarthrosis, unspecified site Hemorrhage of gastrointestinal tract, unspecified Hemorrhage of gastrointestinal tract, unspecified Hemorrhage of rectum and anus Internal hemorrhoids without mention of complication Internal hemorrhoids without mention of complication Lichen planus oral Migraine without aura, without mention of intractable migraine without mention of status migrainosus Other and unspecified hyperlipidemia Other convulsions Palpitations Resolved SOMNOLENCE 01/03/2006 Spinal stenosis, lumbar region, without neurogenic claudication 04/21/2006 Symptomatic menopausal or female climacteric states Unspecified gastritis and gastroduodenitis without mention of hemorrhage FAMILY HISTORY Problem Relation Age of Onset Coronary Artery Disease Mother other (ruptured aaa) Brother other (ruptured aaa) Sister thoracic Ovarian cancer Other Maternal Niece SOCIAL HISTORY Social History Tobacco Use Smoking status: Never Smokeless tobacco: Never Vaping Use Vaping Use: Never used Substance Use Topics Alcohol use: No Drug use: No PHYSICAL EXAMINATION BP 146/84 Pulse 75 Temp 36.6 C (97.8 F) Resp 16 Wt 64.9 kg (143 lb) SpO2 95% BMI 24.93 kg/m GENERAL EXAM: General appearance: NAD, pleasant. HEENT: NC/AT, nasal congestion absent, no oral lesions, membranes moist. NECK: No masses, supple. Lungs: Breathing comfortably Extr: Moves all extremities without difficulty Skin: Cool to touch. No rash. NEUROLOGICAL EXAM: General: Awake, alert, oriented x3 (person,place,time), speech fluent, no dysarthria; comprehension, naming, repetition intact. Short and fpc memory intact. CN: PERRL, EOMI patient with leftward nystagmus with horizontal gaze (reported feeling dizziness with this), VFF to confrontation, facial sensation and strength are normal and symmetric, hearing is intact to finger rub bilaterally, palate and tongue movements are intact and symmetric. SCM and trapezius strength normal. Motor: Normal tone, bulk and strength (5/5) bilaterally (throughout extremities x4). Reflexes: 2/4 and symmetric Coordination: FNF intact. No tremors. Heel to [place] limited by hip pain bilaterally. Sensation: LT, No evidence of neglect. Gait: Unstable, slowed. Romberg with significant sway to the right, almost taking a step. Assessment and Plan: ASSESSMENT/PLAN: 1. 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 Encounter for medication monitoring - ICD9: V58.83, ICD10: Z51.81 Patient without any recurrence of seizure activity, compliant with her Tegretol. Notes that she had recent blood work from her primary care physician in outside facility, including CBC, CMP and Tegretol level. Notes that all of them were within normal range. We will continue on current regimen. 3. Dizziness - ICD9: 780.4, ICD10: R42 4. Unsteadiness - ICD9: 781.2, ICD10: R26.81 Patient reporting some new onset dizziness and unsteadiness since last visit. She is describing both room spinning dizziness when she wakes up in the morning, likely vertiginous, resolving within a few minutes. But she is also experiencing unsteadiness with walking, especially when she turns. Notes that she is stumbling and has to brace herself. Denies any falls or weakness. Denies any signs or symptoms of cord compression at this time including bowel or bladder incontinence, saddle anesthesia. Does report chronic neck pain. Also has difficulty with weakness in bilateral hands but is noted to have bilateral carpal tunnel syndrome. Patient did have sustained leftward nystagmus with horizontal gaze, patient reporting dizziness with this. Regarding her dizziness in the morning, this is likely vertigo, discussed vestibular therapy and patient would like to try this. However, her unsteadiness is a different sensation, concern for cervical stenosis secondary to patient's difficulty with walking, abnormal gait and history of arthritis. We will obtain MRI of the cervical spine to rule out any cord compression or stenosis. Additionally, due to new onset dizziness and gait change, will also obtain MRI of the brain with and without contrast to evaluate for any structural abnormality or stroke that may be contributing patient's symptoms. Patient otherwise doing well, no other neurodeficits other than nystagmus and gait change. 5. MELA (obstructive sleep apnea) - ICD9: 327.23, ICD10: G47.33 Stable, patient is using dental device. Sleeping well throughout the night, but still feeling poorly rested in the morning. No morning headaches, no daytime sleepiness other than one reading. 6. Migraine without aura and without status migrainosus, not intractable - ICD9: 346.10, ICD10: G43.009 Stable, on verapamil. 7. Neuropathy - ICD9: 355.9, ICD10: G62.9 Slightly worsened, estimates up to mid tib-fib bilaterally. Deferring further work-up at this time including EMG. Is able to still feel feet, no falls. Discussed that her unsteadiness may be partly contributed by her neuropathy, patient agrees and understands. 8. Bilateral carpal tunnel syndrome - ICD9: 354.0, ICD10: G56.03 Slightly worsening on the left, notes symptoms primarily to the first 3 digits to the hands bilaterally. Does not wear splints at night. Notes difficulty with fine dexterity of hands and holding things. Patient has not seen [facility] in some time, does not want further work-up at this time. Patient and agreeable to treatment plan of care at this time, all questions were answered. Discussed concerning signs and symptoms that would warrant evaluation emergency department, patient agrees and understands. Patient to follow-up in 2 months or sooner should any symptoms change or worsen. Vicenta Chirinos PA-C I spent a total of 25 minutes on the date of the service which included preparing to see the patient, [id number] patient care, completing clinical documentation, obtaining and/or reviewing separately obtained history, performing a medically appropriate examination, counseling and educating the patient/family/caregiver, and ordering medications, tests, or procedures. This document has been created with the use of voice recognition technology. It may contain inaccuracies: (e.g. misspellings, inaccurate syntax or word sense) that have escaped review. documented in this encounter [facility] 09-20-2022 Miscellaneous Notes Pt made appt for October with Vicenta Chirinos. Brandon Baugh LPN Needs sooner follow up. Please schedule with Abel DUNN. Alex Shaffer MD [facility]: 06/26/21 with [facility] NOV: 02/21/23 with [facility] Refill 06/26/22 qty: 180 and 3 refills Moose Tristan LPN ASSESSMENT/PLAN ASSESSMENT/PLAN: 1. 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 No side effects on Tegretol. Would like to continue on Tegretol dose with no changes. Last level 9 months ago. Will have drawn with PCP yearly labs. Will confirm Na stable at that time. Seizure risks and precautions reviewed with pt. 2. MELA (obstructive sleep apnea) - ICD9: 327.23, ICD10: G47.33 Using oral airway appliance without issues. No symptoms. Pt not wanting follow up sleep testing at this time. Will monitor clinically. 3. Migraine without aura and without status migrainosus, not intractable - ICD9: 346.10, ICD10: G43.009 Asx so long as pt on Verapamil SR as above. No side effects or ADRs. No changes to medications at this time. 4. Neuropathy - ICD9: 355.9, ICD10: G62.9 Continues to have discomfort in feet as above. However, labs workup unremarkable. Pt would like to hold on additional workup or treatment at this time feeling that it has not progressed and not interfering with daily activities. 5. Bilateral carpal tunnel syndrome - ICD9: 354.0, ICD10: G56.03 Has appointment to see specialist as above. Follow up 1 year. Alex Shaffer MD documented in this encounter [facility] 08-02-2022 Miscellaneous Notes Patient calling for refill of verapamil. Patient has been identified by name and date of : Yes Patient phones for refill(s): Requested Prescriptions Pending Prescriptions Disp Refills verapamil SR (CALAN SR, ISOPTIN SR) 240 mg CR tablet 90 tablet 3 Sig: Take 1 tablet by mouth once daily. Date of last office visit in primary care: CHARLES Neurology: 06/26/21, [facility] Neu[facility]: 08/12/22 Last 2 Encounter Wt Readings: Date: Wt: 06/26/2021 64 kg (141 lb) 09/22/2020 66.3 kg (146 lb 3.2 oz) Michelle Nowak RN documented in this encounter [facility] 10-22-2021 Miscellaneous Notes Patient notified and voices understanding. Open in error. If pt is having possible side effects, can reduce tegretol from 1/2 tab in AM and 1 and 1/2 tab in PM to 1/2 tab in AM and 1 tab in PM. However, seizure threshold may lower with change and thus, would advise pt not to drive or operate heavy machinery during this transition for risk of possible seizure. Alex Shaffer MD Patient states it is at a high normal and she is feeling more tired and asking if she can decrease her medication a little. Lab was within an acceptable range. Please determine patient's specific concern. Thank you, Alex Shaffer MD Patient is concerned with the Carbamazepine results. Pt expressed concern about a recent lab result. Please call pt and advise. Thank you, Sugey Julien documented in this encounter [facility] 09-17-2021 Miscellaneous Notes Message left on voicemail that order in to have lab drawn. Virginie Salcido LPN Will check Tegretol level. Alex Shaffer MD Patient wanting to update Dr. Shaffer that Dr. Agustin has not been checking patient's Carbamazepine levels. Leaving for Dr Shaffer to address per patient. Virginie Salcido LPN documented in this encounter [facility] documented as of this encounter (statuses as of 09/17/2021) [facility] History of Past illness Narrative* Problem Noted Date Resolved Date Postmenopausal bleeding 07/06/2011 03/14/20 12 Urgency of urination 05/12/2009 05/29/2010 SOMNOLENCE 01/03/2006 03/17/2016 HYPERLIPIDEMIA NEC/NOS 02/02/2005 6 documented as of this encounter (statuses as of 10/22/2021) [facility] History of Past illness Narrative* Problem Noted Date Resolved Date Postmenopausal bleeding 07/06/2011 03/14/20 12 Urgency of urination 05/12/2009 05/29/2010 SOMNOLENCE 01/03/2006 03/17/2016 HYPERLIPIDEMIA NEC/NOS 02/02/2005 6 documented as of this encounter (statuses as of 06/17/2022) [facility] History of Past illness Narrative* Problem Noted Date Resolved Date Postmenopausal bleeding 07/06/2011 03/14/20 12 Urgency of urination 05/12/2009 05/29/2010 SOMNOLENCE 01/03/2006 03/17/2016 HYPERLIPIDEMIA NEC/NOS 02/02/2005 6 documented as of this encounter (statuses as of 08/03/2022) [facility] History of Past illness Narrative* Problem Noted Date Resolved Date Postmenopausal bleeding 07/06/2011 03/14/20 12 Urgency of urination 05/12/2009 05/29/2010 SOMNOLENCE 01/03/2006 03/17/2016 HYPERLIPIDEMIA NEC/NOS 02/02/2005 6 documented as of this encounter (statuses as of 09/20/2022) [facility] History of Past illness Narrative* Problem Noted Date Resolved Date Postmenopausal bleeding 07/06/2011 03/14/20 12 Urgency of urination 05/12/2009 05/29/2010 SOMNOLENCE 01/03/2006 03/17/2016 HYPERLIPIDEMIA NEC/NOS 02/02/2005 6 documented as of this encounter (statuses as of 10/21/2022) [facility] History of Past illness Narrative* Problem Noted Date Resolved Date Postmenopausal bleeding 07/06/2011 03/14/20 12 Urgency of urination 05/12/2009 05/29/2010 SOMNOLENCE 01/03/2006 03/17/2016 HYPERLIPIDEMIA NEC/NOS 02/02/2005 6 documented as of this encounter (statuses as of 11/11/2022) [facility] History of Past illness Narrative* Problem Noted Date Resolved Date Postmenopausal bleeding 07/06/2011 03/14/20 12 Urgency of urination 05/12/2009 05/29/2010 SOMNOLENCE 01/03/2006 03/17/2016 HYPERLIPIDEMIA NEC/NOS 02/02/2005 6 documented as of this encounter (statuses as of 11/30/2022) [facility] History of Past illness Narrative* Problem Noted Date Resolved Date Postmenopausal bleeding 07/06/2011 03/14/20 12 Urgency of urination 05/12/2009 05/29/2010 SOMNOLENCE 01/03/2006 03/17/2016 HYPERLIPIDEMIA NEC/NOS 02/02/2005 6 documented as of this encounter (statuses as of 12/01/2022) [facility] History of Past illness Narrative* Problem Noted Date Resolved Date Postmenopausal bleeding 07/06/2011 03/14/20 12 Urgency of urination 05/12/2009 05/29/2010 SOMNOLENCE 01/03/2006 03/17/2016 HYPERLIPIDEMIA NEC/NOS 02/02/2005 6 documented as of this encounter (statuses as of 12/17/2022) [facility] History of Past illness Narrative* Problem Noted Date Diagnosed Date Resolved Date Postmenopausal bleeding 07/06/201107/2011 Urgency of urination 05/12/2009 010 SOMNOLENCE 01/03/2006 03/17/2016 HYPERLIPIDEMIA NEC/NOS 02/02/200508/25 documented as of this encounter (statuses as of 12/29/2022) [facility] History of Past illness Narrative* Problem Noted Date Diagnosed Date Resolved Date Postmenopausal bleeding 07/06/201107/2011 Urgency of urination 05/12/2009 010 SOMNOLENCE 01/03/2006 03/17/2016 HYPERLIPIDEMIA NEC/NOS 02/02/200508/25 documented as of this encounter (statuses as of 01/12/2023) [facility] History of Past illness Narrative* Problem Noted Date Diagnosed Date Resolved Date Postmenopausal bleeding 07/06/201107/2011 Urgency of urination 05/12/2009 010 SOMNOLENCE 01/03/2006 03/17/2016 HYPERLIPIDEMIA NEC/NOS 02/02/200508/25 documented as of this encounter (statuses as of 02/21/2023) [facility] History of Past illness Narrative* Problem Noted Date Diagnosed Date Resolved Date Postmenopausal bleeding 07/06/201107/2011 Urgency of urination 05/12/2009 010 SOMNOLENCE 01/03/2006 03/17/2016 HYPERLIPIDEMIA NEC/NOS 02/02/200508/25 documented as of this encounter (statuses as of 02/22/2023) [facility] History of Past illness Narrative* Problem Noted Date Diagnosed Date Resolved Date Postmenopausal bleeding 07/06/201107/2011 Urgency of urination 05/12/2009 010 SOMNOLENCE 01/03/2006 03/17/2016 HYPERLIPIDEMIA NEC/NOS 02/02/200508/25 documented as of this encounter (statuses as of 02/22/2023) [facility] History of Past illness Narrative* Problem Noted Date Diagnosed Date Resolved Date Postmenopausal bleeding 07/06/201107/2011 Urgency of urination 05/12/2009 010 SOMNOLENCE 01/03/2006 03/17/2016 HYPERLIPIDEMIA NEC/NOS 02/02/200508/25 documented as of this encounter (statuses as of 03/12/2023) [facility] History of Past illness Narrative* Problem Noted Date Diagnosed Date Resolved Date Postmenopausal bleeding 07/06/201107/2011 Urgency of urination 05/12/2009 010 SOMNOLENCE 01/03/2006 03/17/2016 HYPERLIPIDEMIA NEC/NOS 02/02/200508/25 documented as of this encounter (statuses as of 03/19/2023) [address]24-2012 History of Past illness Narrative* Problem Noted Date Diagnosed Date Resolved Date Postmenopausal bleeding 07/06/201107/2011 Urgency of urination 05/12/2009 010 SOMNOLENCE 01/03/2006 03/17/2016 HYPERLIPIDEMIA NEC/NOS 02/02/200508/25 documented as of this encounter (statuses as of 03/30/2023) [facility] History of Past illness Narrative* Problem Noted Date Diagnosed Date Resolved Date Postmenopausal bleeding 07/06/201107/2011 Urgency of urination 05/12/2009 010 SOMNOLENCE 01/03/2006 03/17/2016 HYPERLIPIDEMIA NEC/NOS 02/02/200508/25 documented as of this encounter (statuses as of 04/04/2023) [facility] History of Past illness Narrative* Problem Noted Date Diagnosed Date Resolved Date Postmenopausal bleeding 07/06/201107/2011 Urgency of urination 05/12/2009 010 SOMNOLENCE 01/03/2006 03/17/2016 HYPERLIPIDEMIA NEC/NOS 02/02/200508/25 documented as of this encounter (statuses as of 04/08/2023) [facility] History of Past illness Narrative* Problem Noted Date Diagnosed Date Resolved Date Postmenopausal bleeding 07/06/201107/2011 Urgency of urination 05/12/2009 010 SOMNOLENCE 01/03/2006 03/17/2016 HYPERLIPIDEMIA NEC/NOS 02/02/200508/25 documented as of this encounter (statuses as of 04/15/2023) [address]24-2012 History of Past illness Narrative* Problem Noted Date Diagnosed Date Resolved Date Postmenopausal bleeding 07/06/201107/2011 Urgency of urination 05/12/2009 010 SOMNOLENCE 01/03/2006 03/17/2016 HYPERLIPIDEMIA NEC/NOS 02/02/200508/25 documented as of this encounter (statuses as of 04/15/2023) [facility] History of Past illness Narrative* Problem Noted Date Diagnosed Date Resolved Date Postmenopausal bleeding 07/06/201107/2011 Urgency of urination 05/12/2009 010 SOMNOLENCE 01/03/2006 03/17/2016 HYPERLIPIDEMIA NEC/NOS 02/02/200508/25 documented as of this encounter (statuses as of 04/15/2023) [facility] History of Past illness Narrative* Problem Noted Date Diagnosed Date Resolved Date Postmenopausal bleeding 07/06/201107/2011 Urgency of urination 05/12/2009 010 SOMNOLENCE 01/03/2006 03/17/2016 HYPERLIPIDEMIA NEC/NOS 02/02/200508/25 documented as of this encounter (statuses as of 04/21/2023) [facility] History of Past illness Narrative* Problem Noted Date Diagnosed Date Resolved Date Postmenopausal bleeding 07/06/201107/2011 Urgency of urination 05/12/2009 010 SOMNOLENCE 01/03/2006 03/17/2016 HYPERLIPIDEMIA NEC/NOS 02/02/200508/25 documented as of this encounter (statuses as of 04/29/2023) [facility] Diagnosis 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 [facility] Diagnosis 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 [facility] Diagnosis Generalized convulsive epilepsy (HCC) Generalized convulsive epilepsy without mention of intractable epilepsy [facility] Diagnosis 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 Encounter for medication monitoring Encounter for therapeutic drug monitoring Dizziness Dizziness and giddiness Unsteadiness Abnormality of gait MELA (obstructive sleep apnea) Obstructive sleep apnea (adult) (pediatric) Migraine without aura and without status migrainosus, not intractable Migraine without aura, without mention of intractable migraine without mention of status migrainosus Neuropathy Mononeuritis of unspecified site Bilateral carpal tunnel syndrome Carpal tunnel syndrome [facility] Cervical stenosis of spinal canal- Primary Spinal stenosis in cervical region [facility] Diagnosis Unsteadiness- Primary Abnormality of gait Dizziness Dizziness and giddiness [facility] Dizziness- Primary Dizziness and giddiness Unsteadiness Abnormality of gait [facility] Diagnosis Generalized convulsive epilepsy (HCC) Generalized convulsive epilepsy without mention of intractable epilepsy [facility] Diagnosis Dizziness and giddiness- Primary Lightheadedness Dizziness and giddiness Generalized convulsive epilepsy (HCC) Generalized convulsive epilepsy without mention of intractable epilepsy High risk medication use Encounter for long-term (current) use of other medications MELA (obstructive sleep apnea) Obstructive sleep apnea (adult) (pediatric) Migraine without aura and without status migrainosus, not intractable Migraine without aura, without mention of intractable migraine without mention of status migrainosus Neuropathy Mononeuritis of unspecified site History of carotid stenosis Personal history of other diseases of circulatory system [facility] Diagnosis Dizziness- Primary Dizziness and giddiness Vestibular dysfunction, right Lightheaded Dizziness and giddiness Lightheadedness Dizziness and giddiness [facility] Diagnosis Dizziness and giddiness- Primary Lightheaded Dizziness and giddiness Lightheadedness Dizziness and giddiness [facility] Diagnosis Dizziness and giddiness- Primary Lightheaded Dizziness and giddiness Lightheadedness Dizziness and giddiness [facility] Diagnosis Dizziness Dizziness and giddiness Unsteadiness Abnormality of gait Lightheaded Dizziness and giddiness Lightheadedness Dizziness and giddiness [facility] Diagnosis Dizziness Dizziness and giddiness Unsteadiness Abnormality of gait Lightheaded Dizziness and giddiness Lightheadedness Dizziness and giddiness [facility] Diagnosis Dizziness and giddiness Lightheadedness Dizziness and giddiness History of carotid stenosis Personal history of other diseases of circulatory system Lightheaded Dizziness and giddiness Lightheadedness Dizziness and giddiness [facility] Diagnosis Dizziness and giddiness- Primary documented in this encounter [facility] Summary Purpose Family History No Family History Records FoundNo Family History Records FoundNo Family History Records FoundNo Family History Records Found Advance Directives No Advanced Directives Records FoundNo Advanced Directives Records FoundNo Advanced Directives Records FoundNo Advanced Directives Records Found Reason for Referral Specialty Diagnoses / Procedures Referred By Contac t Referred To Contact MR IMAGING Diagnoses Dizziness Unsteadiness Procedures MRI CERVICAL SPINE WO IVCON MRI SPINAL CANAL CERVICAL W/O CONTRAST MATRL Vicenta Chirinos PA-C [address] [place] [address] Mr Imaging Referral ID Status Reason Start Date Expiration Date Visits Requested Visits Authorized [id number] Authorized Auto-Generat ed Referral 10/20/2022 11/19/2023 1 1 Specialty Diagnoses / Procedures Referred By Contac t Referred To Contact MR IMAGING Diagnoses Dizziness Unsteadiness Procedures MRI BRAIN WO/W IVCON MRI BRAIN BRAIN STEM W/O W/CONTRAST MATERIAL Vicenta Chirinos PA-C [address] [place] [address] Mr Imaging Referral ID Status Reason Start Date Expiration Date Visits Requested Visits Authorized [id number] Authorized Auto-Generat ed Referral 10/20/2022 11/19/2023 1 1 Specialty Diagnoses / Procedures Referred By Contac t Referred To Contact Neurosurgery Diagnoses Cervical stenosis of spinal canal Procedures CONSULT TO NEUROSURGERY OFFICE/OUTPATIENT [facility] 60-74 MINUTES Vicenta Chirinos PA-C [address] [place] [address] Referral ID Status Reason Start Date Expiration Date Visits Requested Visits Authorized [id number] Pending Review PCP Requested Referral 11/30/2022 11/30/2023 1 1 Specialty Diagnoses / Procedures Referred By Contac t Referred To Contact [facility] Diagnoses Dizziness Unsteadiness Procedures PT REHAB FOLLOW UP ORDER THERAPEUTIC EXERCISES RE, EA 15 MIN. Brandon Hercules, PT [facility] [address] [place] [address] Referral ID Status Reason Start Date Expiration Date Visits Requested Visits Authorized [id number] Pending Review PCP Requested Referral Auto-Generate d Referral 12/01/2022 03/01/2023 1 1 Specialty Diagnoses / Procedures Referred By Contac t Referred To Contact CT IMAGING Diagnoses Dizziness and giddiness Lightheadedness History of carotid stenosis Procedures CTA NECK W IVCON CT ANGIOGRAPHY NECK W/CONTRAST/NONCONTRAST Alex Shaffer Jr., MD [address] [place] [address] [address] [place] [address] Ct Imaging [facility] Referral ID Status Reason Start Date Expiration Date Visits Requested Visits Authorized [id number] Authorized Auto-Generat ed Referral 02/21/2023 03/22/2024 1 1 Specialty Diagnoses / Procedures Referred By Contac t Referred To Contact CT IMAGING Diagnoses Dizziness and giddiness Lightheadedness History of carotid stenosis Procedures CTA HEAD WO/W IVCON CT ANGIOGRAPHY HEAD W/CONTRAST/NONCONTRAST Alex Shaffer Jr., MD [address] [place] [address] [address] [place] [address] Ct Imaging [facility] Referral ID Status Reason Start Date Expiration Date Visits Requested Visits Authorized [id number] Authorized Auto-Generat ed Referral 02/21/2023 03/22/2024 1 1 Specialty Diagnoses / Procedures Referred By Contac t [facility] Diagnoses Dizziness and giddiness Lightheadedness Procedures ECHO ECHO TTHRC R-T 2D W/WOM-MODE COMPL SPEC&COLR D Alex Shaffer Jr., MD [address] [place] [address] [address] [place] [address] [facility] [address] [place] [address] Referral ID Status Reason Start Date Expiration Date Visits Requested Visits Authorized [id number] Authorized Auto-Generat ed Referral 02/21/2023 02/21/2024 1 1 Specialty Diagnoses / Procedures Referred By Contac t Referred To Contact MR IMAGING Diagnoses Dizziness Unsteadiness Procedures MRI BRAIN WO/W IVCON MRI BRAIN BRAIN STEM W/O W/CONTRAST MATERIAL Vicenta Chirinos PA-C [address] [place] [address] [place] [address] Referral ID Status Reason Start Date Expiration Date V isits Requested Visits Authorized [id number] Closed Auto-Generate d Referral 10/20/2022 11/19/2023 1 1 Specialty Diagnoses / Procedures Referred By Ho t Referred To Contact MR IMAGING Diagnoses Dizziness Unsteadiness Procedures MRI CERVICAL SPINE WO IVCON MRI SPINAL CANAL CERVICAL W/O CONTRAST Vicenta Ly PA-C [address] [id number] [place] [address] Referral ID Status Reason Start Date Expiration Date V isits Requested Visits Authorized [id number] Closed Auto-Generate d Referral 10/20/2022 11/19/2023 1 1 Referral ID Status Reason Start Date Expiration Date V isits Requested Visits Authorized [id number] Closed Auto-Generate d Referral 02/21/2023 03/22/2024 1 1 Referral ID Status Reason Start Date Expiration Date V isits Requested Visits Authorized [id number] Closed Auto-Generate d Referral 02/21/2023 03/22/2024 1 1 Additional Source Comments INFORMATION SOURCE (unrecogn ized section and content) DATE CREATED AUTHOR AUTHOR'S ORGANIZ ATION 05/13/2020 [facility] DATE CREATED AUTHOR AUTHOR'S ORGANIZ ATION 06/02/2021 [facility] DATE CREATED AUTHOR AUTHOR'S ORGANIZ ATION 05/07/[address] [facility] Source Comments (unrecognize d section and content) In the event this informatio n is protected by the Federal Confidentiality of Alcohol and Drug Abuse Patient Records regulations: The Federal rules restrict any use of the information to criminally investigate or prosecute any alcohol or drug abuse patient.[facility] Center[facility] the event this information is protected by the Federal Confidentiality of Alcohol and Drug Abuse Patient Records regulations: The Federal rules restrict any use of the information to criminally investigate or prosecute any alcohol or drug abuse patient.[facility] Center[facility] the event this information is protected by the Federal Confidentiality of Alcohol and Drug Abuse Patient Records regulations: The Federal rules restrict any use of the information to criminally investigate or prosecute any alcohol or drug abuse patient.[facility] CenterIn the event this information is protected by the Federal Confidentiality of Alcohol and Drug Abuse Patient Records regulations: The Federal rules restrict any use of the information to criminally investigate or prosecute any alcohol or drug abuse patient.[facility] CenterIn the event this information is protected by the Federal Confidentiality of Alcohol and Drug Abuse Patient Records regulations: The Federal rules restrict any use of the information to criminally investigate or prosecute any alcohol or drug abuse patient.[facility] CenterIn the event this information is protected by the Federal Confidentiality of Alcohol and Drug Abuse Patient Records regulations: The Federal rules restrict any use of the information to criminally investigate or prosecute any alcohol or drug abuse patient.[facility] CenterIn the event this information is protected by the Federal Confidentiality of Alcohol and Drug Abuse Patient Records regulations: The Federal rules restrict any use of the information to criminally investigate or prosecute any alcohol or drug abuse patient.[facility] CenterIn the event this information is protected by the Federal Confidentiality of Alcohol and Drug Abuse Patient Records regulations: The Federal rules restrict any use of the information to criminally investigate or prosecute any alcohol or drug abuse patient.[facility] CenterIn the event this information is protected by the Federal Confidentiality of Alcohol and Drug Abuse Patient Records regulations: The Federal rules restrict any use of the information to criminally investigate or prosecute any alcohol or drug abuse patient.[facility] CenterIn the event this information is protected by the Federal Confidentiality of Alcohol and Drug Abuse Patient Records regulations: The Federal rules restrict any use of the information to criminally investigate or prosecute any alcohol or drug abuse patient.[facility] CenterIn the event this information is protected by the Federal Confidentiality of Alcohol and Drug Abuse Patient Records regulations: The Federal rules restrict any use of the information to criminally investigate or prosecute any alcohol or drug abuse patient.[facility] CenterIn the event this information is protected by the Federal Confidentiality of Alcohol and Drug Abuse Patient Records regulations: The Federal rules restrict any use of the information to criminally investigate or prosecute any alcohol or drug abuse patient.[facility] CenterIn the event this information is protected by the Federal Confidentiality of Alcohol and Drug Abuse Patient Records regulations: The Federal rules restrict any use of the information to criminally investigate or prosecute any alcohol or drug abuse patient.[facility] CenterIn the event this information is protected by the Federal Confidentiality of Alcohol and Drug Abuse Patient Records regulations: The Federal rules restrict any use of the information to criminally investigate or prosecute any alcohol or drug abuse patient.[facility] CenterIn the event this information is protected by the Federal Confidentiality of Alcohol and Drug Abuse Patient Records regulations: The Federal rules restrict any use of the information to criminally investigate or prosecute any alcohol or drug abuse patient.[facility] CenterIn the event this information is protected by the Federal Confidentiality of Alcohol and Drug Abuse Patient Records regulations: The Federal rules restrict any use of the information to criminally investigate or prosecute any alcohol or drug abuse patient.[facility] CenterIn the event this information is protected by the Federal Confidentiality of Alcohol and Drug Abuse Patient Records regulations: The Federal rules restrict any use of the information to criminally investigate or prosecute any alcohol or drug abuse patient.[facility] CenterIn the event this information is protected by the Federal Confidentiality of Alcohol and Drug Abuse Patient Records regulations: The Federal rules restrict any use of the information to criminally investigate or prosecute any alcohol or drug abuse patient.[facility] CenterIn the event this information is protected by the Federal Confidentiality of Alcohol and Drug Abuse Patient Records regulations: The Federal rules restrict any use of the information to criminally investigate or prosecute any alcohol or drug abuse patient.[facility] CenterIn the event this information is protected by the Federal Confidentiality of Alcohol and Drug Abuse Patient Records regulations: The Federal rules restrict any use of the information to criminally investigate or prosecute any alcohol or drug abuse patient.[facility] CenterIn the event this information is protected by the Federal Confidentiality of Alcohol and Drug Abuse Patient Records regulations: The Federal rules restrict any use of the information to criminally investigate or prosecute any alcohol or drug abuse patient.[facility] CenterIn the event this information is protected by the Federal Confidentiality of Alcohol and Drug Abuse Patient Records regulations: The Federal rules restrict any use of the information to criminally investigate or prosecute any alcohol or drug abuse patient.[facility] CenterIn the event this information is protected by the Federal Confidentiality of Alcohol and Drug Abuse Patient Records regulations: The Federal rules restrict any use of the information to criminally investigate or prosecute any alcohol or drug abuse patient.[facility] CenterIn the event this information is protected by the Federal Confidentiality of Alcohol and Drug Abuse Patient Records regulations: The Federal rules restrict any use of the information to criminally investigate or prosecute any alcohol or drug abuse patient.[facility] CenterIn the event this information is protected by the Federal Confidentiality of Alcohol and Drug Abuse Patient Records regulations: The Federal rules restrict any use of the information to criminally investigate or prosecute any alcohol or drug abuse patient.[facility] CenterIn the event this information is protected by the Federal Confidentiality of Alcohol and Drug Abuse Patient Records regulations: The Federal rules restrict any use of the information to criminally investigate or prosecute any alcohol or drug abuse patient.[facility] Reason for Visit (unrecogniz ed section and content) Reason Comments Results Reason Comments Refill Request Reason Onset Date Comments Refill Request 08/02/2022 Reason Comments Follow Up Reason Onset Date Comments Refill Request 11/09/2022 Reason Comments Results Reason Comments PT Eval Specialty Diagnoses / Procedures Referred By Contac t Referred To Contact Physical Therapy / PHYSICAL THERAPY Diagnoses Dizziness [R42]; Unsteadiness [R26.81] Procedures NEW RS PT VESTIBULAR DIZZY Vicenta Chirinos PA-C [address] [place] [address] Brandon Hercules PT Referral ID Status Reason Start Date Expiration Date V isits Requested Visits Authorized [id number] Authorized 2022 06/12/2023 20 20 Reason Comments Physical Therapy Specialty Diagnoses / Procedures Referred By Contac t Referred To Contact Physical Therapy / PHYSICAL THERAPY Diagnoses Dizziness [R42]; Unsteadiness [R26.81] Procedures NEW RS PT VESTIBULAR DIZZY Vicenta Chirinos PA-C [address] [place] [address] OBrandon Acevedo, PT Reason Comments Fax Results Reason Comments Orders Reason Comments Follow Up Reason Comments Patient Question Reason Comments Dizziness Balance/Incoordination Headaches Neck Pain Reason Comments PT Eval Specialty Diagnoses / Procedures Referred By Contac t Referred To Contact Physical Therapy / PHYSICAL THERAPY Diagnoses Dizziness [R42]; Unsteadiness [R26.81] Procedures NEW RS PT VESTIBULAR DIZZY Vicenta Chirinos PA-C [address] [place] [address] O'Brandon Cruz, PT Reason Comments 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 Bath Mixer - Other Specialty Diagnoses / Procedures Referred By Contac t Referred To Contact MR IMAGING Diagnoses Dizziness Unsteadiness Procedures MRI BRAIN WO/W IVCON MRI BRAIN BRAIN STEM W/O W/CONTRAST MATERIAL Vicenta Chirinos PA-C [address] [place], [place] [id number] Mr Imaging [facility] Referral ID Status Reason Start Date Expiration Date V isits Requested Visits Authorized [id number] Closed Auto-Generate d Referral 10/20/2022 11/19/2023 1 1 Specialty Diagnoses / Procedures Referred By Contac t Referred To Contact MR IMAGING Diagnoses Dizziness Unsteadiness Procedures MRI CERVICAL SPINE WO IVCON MRI SPINAL CANAL CERVICAL W/O CONTRAST MATRL Vicenta Chirinos PA-C [address] [place] [address] Mr Imaging [facility] Referral ID Status Reason Start Date Expiration Date V isits Requested Visits Authorized [id number] Closed Auto-Generate d Referral 10/20/2022 11/19/2023 [address] Specialty Diagnoses / Procedures Referred By Contac t Referred To Contact CT IMAGING Diagnoses Dizziness and giddiness Lightheadedness History of carotid stenosis Procedures CTA NECK W IVCON CT ANGIOGRAPHY NECK W/CONTRAST/NONCONTRAST Alex Shaffer Jr., MD [address] [facility] [address] [place] [address] [place] [address] Referral ID Status Reason Start Date Expiration Date V isits Requested Visits Authorized [id number] Closed Auto-Generate d Referral 02/21/2023 03/22/2024 1 1 Reason Comments PT Discharge Specialty Diagnoses / Procedures Referred By Ho t Referred To Contact Physical Therapy / PHYSICAL THERAPY Diagnoses Dizziness [R42]; Unsteadiness [R26.81] Procedures NEW RS PT VESTIBULAR DIZZY Vicenta Chirinos PA-C [address] [place] [address] Brandon Hercules, PT Care Teams (unrecognized sec tion and content) Yardage Caller Relationship Specialty Start Date End Date Magalys Agustin [address] [place] [address] PCP - General Family Practice 12/21/19 Yardage Caller Relationship Specialty Start Date End Date Magalys Agustin [address] [place] [address] PCP - General Family Medicine 12/21/19 Yardage Caller Relationship Specialty Start Date End Date Magalys Agustin [address] [place] [address] PCP - General Family Medicine 12/21/19 Yardage Caller Relationship Specialty Start Date End Date Magalys Agustin [address] [place] [address] PCP - General Family Medicine 12/21/19 Yardage Caller Relationship Specialty Start Date End Date Magalys Agustin [address] [place] [address] PCP - General Family Medicine 12/21/19 Yardage Caller Relationship Specialty Start Date End Date Magalys Agustin [address] [place] [address] PCP - General Family Medicine 12/21/19 Yardage Caller Relationship Specialty Start Date End Date Magalys Agustin [address] [place] [address] PCP - General Family Medicine 12/21/19 Yardage Caller Relationship Specialty Start Date End Date Magalys Agustin [address] [place] [address] PCP - General Family Medicine 12/21/19 Yardage Caller Relationship Specialty Start Date End Date Magalys Agustin [address] [place] [address] PCP - General Family Medicine 12/21/19 Yardage Caller Relationship Specialty Start Date End Date Magalys Agustin [address] [place] [address] PCP - General Family Medicine 12/21/19 Yardage Caller Relationship Specialty Start Date End Date Magalys Agustin [address] [place] [address] PCP - General Family Medicine 12/21/19 Yardage Caller Relationship Specialty Start Date End Date Magalys Agustin MD [address] [place] [address] PCP - General Family Medicine 12/21/19 Yardage Caller Relationship Specialty Start Date End Date Magalys Agustin MD [address] [place] [address] PCP - General Family Medicine 12/21/19 Yardage Caller Relationship Specialty Start Date End Date Magalys Agustin MD [address] [place] [address] PCP - General Family Medicine 12/21/19 Yardage Caller Relationship Specialty Start Date End Date Magalys Agustin MD [address] [place] [address] PCP - General Family Medicine 12/21/19 Yardage Caller Relationship Specialty Start Date End Date Magalys Agustin MD [address] [place] [address] PCP - General Family Medicine 12/21/19 Yardage Caller Relationship Specialty Start Date End Date Magalys Agustin MD [address] [place] [address] PCP - General Family Medicine 12/21/19 Yardage Caller Relationship Specialty Start Date End Date Magalys Agustin MD [address] [place] [address] PCP - General Family Medicine 12/21/19 Yardage Caller Relationship Specialty Start Date End Date Magalys Agustin MD [address] [place] [address] PCP - General Family Medicine 12/21/19 Yardage Caller Relationship Specialty Start Date End Date Magalys Agustin MD [address] [place] [address] PCP - General Family Medicine 12/21/19 Yardage Caller Relationship Specialty Start Date End Date Magalys Agustin MD [address] [place] [address] PCP - General Family Medicine 12/21/19 Yardage Caller Relationship Specialty Start Date End Date Magalys Agustin MD [address] [facility] [address] [place] [address] PCP - General Family Medicine 12/21/19 Yardage Caller Relationship Specialty Start Date End Date Magalys Agustin MD [address] [facility] [address] [place] [address] PCP - General Family Medicine 12/21/19 FOR RECORDS PERTAINING TO PATIENTS WHO ARE OR HAVE BEEN ENROLLED IN A CHEMICAL DEPENDENCY/SUBSTANCEABUSE PROGRAM, SOME INFORMATION MAY BE OMITTED. This clinical summary was aggregated from multiple sources. Caution should be exercised in using it in the provision of clinical care. This summary normalizes information from multiple sources, and as a consequence, information in this document may materially change the coding, format and clinical context of patient data. In addition, data may be omitted in some cases. CLINICAL DECISIONS SHOULD BE BASED ON THE PRIMARY CLINICAL RECORDS. [facility] [employer] provides no warranty or guarantee of the accuracy or completeness of information in this document.
[2023-07-22 17:30] LABS: Absolute Lymphocyte Count 1.31 X10^3/uL (0.83-4.51); Absolute Neutrophil Count 5.1 X10^3/uL (2.0-7.7); Basophil# 0.05 X10^3/uL; Basophil% 0.7 % (0-1); Eosinophil# 0.11 X10^3/uL; Eosinophils% 1.5 % (0-5); Hematocrit 41.3 % (37-47); Hemoglobin 13.9 g/dL (12.0-15.0); Lymphocyte # 1.31 X10^3/ul (0.83-4.51); Lymphocyte % 17.9 % (19-41); Mean Corp Hgb Conc 33.7 g/dL (32-36); Mean Corpuscular Hgb 34.5 pg (27.0-32.0); Mean Corpuscular Volume 102.5 fL (81-99); Mean Platelet Vol. 9.1 fl (6.2-12.0); Monocyte# 0.69 X10^3/uL; Monocyte% 9.4 % (0-10); NRBC Flagged by Analyzer 0 % (0-5); Neutrophil # 5.11 X10^3/uL (2.7-7.7); Neutrophil % 69.7 % (47-70); Platelet Count 335 K/mm3 (150-450); RBC Distribution Width CV 11.4 % (11.6-14.6); RBC Distribution Width SD 43.4 fl (35.1-43.9); Red Blood Count 4.03 M/mm3 (4.2-5.4); White Blood Count 7.3 K/mm3 (4.4-11.0)
[2023-07-22 17:43] LABS: Vitamin D,25 Hydroxy 32.4 ng/mL
[2023-07-22 17:49] LABS: ALB/GLOB Ratio 1.2 RATIO (0.9-2.4); AST(SGOT) 19 U/L (15-37); Alanine Aminotransfer ALT/SGPT 40 U/L (13-56); Albumin, Serum 4.1 g/dL (3.2-5.0); Alkaline Phosphatase 88 U/L (45-117); Anion Gap 4 (5-15); BUN 27 mg/dL (7-18); BUN/Creat Ratio 32.1 RATIO (10-20); Calcium,Total 9.6 mg/dL (8.5-10.1); Chloride 103 mmol/L (98-107); Cholesterol 190 mg/dL (200); Creatinine, Serum 0.84 mg/dL (0.55-1.02); EST Glomerular Filtration Rate 68 mL/min (>60); Est Glom Filt Rate - Afr Amer 83 mL/min (>60); Globulin 3.5 g/dL (2.2-4.2); Glucose 92 mg/dL (74-106); High Density Lipoprotein 58 mg/dL; Potassium 4.2 mmol/L (3.5-5.1); Protein, Total 7.6 g/dL (6.4-8.2); Sodium Level 138 mmol/L (136-145); Triglycerides 232 mg/dL; Very Low Density Lipoprotein 46 mg/dL (5-40)
== END | disposition home or self-care (01) ==
LOC: MTLAB 15:16
PROVIDERS: PCP Family Medicine; Referring Provider Family Medicine; Visit Provider Family Medicine
DX: E78.5 Hyperlipidemia, unspecified (principal); M81.0 Age-related osteoporosis without current pathological fracture
CPT/HCPCS: 36415; 80053; 80061; 82306; 85025

== ENCOUNTER → 2023-09-30 | Outpatient (CLI) | payer MEDICARE, SELFPAY ==
--- NOTE | 2023-09-30 | EMB_PTH ---
PATIENT: KENY BAPTISTE [facility] U[facility][id number] AGE/SX: 83/F ROOM: RE09/30/[address]: Dr. Taryn Lee MD : 1940 BED: DIS: 09/30/2023 SPEC #: [id number] RECD: 09/30/23 15:55 STATUS: JUAN M JACKSON #: [id number] HANSEL: 09/30/23 00:[address]: Taryn Lee DEPT: SURGICAL PATHOLOGY RECD BY: Farhad Fink ENTERED: 10/03/23 10:22 SP TYPE: ENDOM BX/C KING DR: Dr. Sukhi Mcclure MD Tissues: Endometrium, NOS Procedures: Surgery Specimen Level IV HEADER OPERATION: Endometrial biopsy PRE-OP DIAGNOSIS: Abnormal uterine bleeding TISSUE SUBMITTED: Endometrial lining MICROSCOPIC DIAGNOSIS Endometrial lining, biopsy: Scant fragments of benign endometrial epithelium and benign endocervical epithelium and mucous. See comment. SJ/ 10/04/2023 COMMENT Specimen predominately consists of mucoid tissue. Clinical correlation and appropriate follow up are necessary. MICROSCOPIC DESCRIPTION Slides are reviewed. GROSS DESCRIPTION Received is one container labeled with the patient's name and not further designated. The specimen consists of multiple irregular fragments of smith-pink soft tissue that in aggregate measure 0.5 x 0.5 x 0.2 cm. The specimen is totally submitted in one cassette. CLAIRE/ 10/03/2023 TC:4 CPT:88928
== END | disposition home or self-care (01) ==
LOC: LABSPEC 16:08
PROVIDERS: PCP Family Medicine; Referring Provider Obstetrics & Gynecology; Visit Provider Obstetrics & Gynecology
DX: N93.9 Abnormal uterine and vaginal bleeding, unspecified (principal)
CPT/HCPCS: 88305

== ENCOUNTER → 2023-11-09 | Outpatient (CLI) | payer MEDICARE, SELFPAY ==
[2023-11-09 18:16] LABS: Absolute Lymphocyte Count 1.34 X10^3/uL (0.83-4.51); Absolute Neutrophil Count 4.8 X10^3/uL (2.0-7.7); Basophil# 0.04 X10^3/uL; Basophil% 0.6 % (0-1); Eosinophil# 0.18 X10^3/uL; Eosinophils% 2.6 % (0-5); Hematocrit 38.3 % (37-47); Hemoglobin 13.2 g/dL (12.0-15.0); Lymphocyte # 1.34 X10^3/ul (0.83-4.51); Mean Corp Hgb Conc 34.5 g/dL (32-36); Mean Corpuscular Hgb 34.4 pg (27.0-32.0); Mean Corpuscular Volume 99.7 fL (81-99); Monocyte# 0.64 X10^3/uL; Monocyte% 9.1 % (0-10); NRBC Flagged by Analyzer 0 % (0-5); Neutrophil # 4.82 X10^3/uL (2.7-7.7); Neutrophil % 68.3 % (47-70); Platelet Count 298 K/mm3 (150-450); RBC Distribution Width CV 11.3 % (11.6-14.6); RBC Distribution Width SD 40.6 fl (35.1-43.9); Red Blood Count 3.84 M/mm3 (4.2-5.4); White Blood Count 7.1 K/mm3 (4.4-11.0)
[2023-11-09 18:20] LABS: Vitamin D,25 Hydroxy 35.7 ng/mL
[2023-11-09 18:28] LABS: ALB/GLOB Ratio 1.2 RATIO (0.9-2.4); AST(SGOT) 23 U/L (15-37); Alanine Aminotransfer ALT/SGPT 23 U/L (13-56); Albumin, Serum 3.9 g/dL (3.2-5.0); Alkaline Phosphatase 75 U/L (45-117); Anion Gap 9 (5-15); BUN 21 mg/dL (7-18); BUN/Creat Ratio 24.5 RATIO (10-20); Calcium,Total 9.1 mg/dL (8.5-10.1); Chloride 98 mmol/L (98-107); Cholesterol 180 mg/dL (200); Creatinine, Serum 0.86 mg/dL (0.55-1.02); EST Glomerular Filtration Rate 67 mL/min (>60); Est Glom Filt Rate - Afr Amer 81 mL/min (>60); Globulin 3.2 g/dL (2.2-4.2); Glucose 95 mg/dL (74-106); High Density Lipoprotein 52 mg/dL; Potassium 4.2 mmol/L (3.5-5.1); Protein, Total 7.1 g/dL (6.4-8.2); Sodium Level 134 mmol/L (136-145); Triglycerides 318 mg/dL; Very Low Density Lipoprotein 64 mg/dL (5-40)
== END | disposition home or self-care (01) ==
LOC: MFPLAB 16:27
PROVIDERS: PCP Family Medicine; Visit Provider Family Medicine
DX: E78.5 Hyperlipidemia, unspecified (principal); M81.0 Age-related osteoporosis without current pathological fracture
CPT/HCPCS: 80053; 80061; 82306; 85025

== ENCOUNTER → 2024-02-24 | Outpatient (CLI) | payer MEDICARE, SELFPAY ==
[2024-02-24 16:03] LABS: Anion Gap 6 (5-15); BUN 17 mg/dL (7-18); BUN/Creat Ratio 20.9 RATIO (10-20); Calcium,Total 9.3 mg/dL (8.5-10.1); Chloride 97 mmol/L (98-107); Creatinine, Serum 0.81 mg/dL (0.55-1.02); EST Glomerular Filtration Rate 71 mL/min (>60); Est Glom Filt Rate - Afr Amer 86 mL/min (>60); Glucose 89 mg/dL (74-106); Sodium Level 132 mmol/L (136-145)
== END | disposition home or self-care (01) ==
LOC: MFPLAB 11:50
PROVIDERS: PCP Family Medicine; Visit Provider Family Medicine
DX: E87.1 Hypo-osmolality and hyponatremia (principal)
CPT/HCPCS: 36415; 80048

== ENCOUNTER → 2024-03-05 | Outpatient (CLI) | payer MEDICARE, SELFPAY ==
[2024-03-05 15:49] LABS: Anion Gap 4 (5-15); BUN 17 mg/dL (7-18); BUN/Creat Ratio 18.4 RATIO (10-20); Calcium,Total 9.9 mg/dL (8.5-10.1); Chloride 99 mmol/L (98-107); Creatinine, Serum 0.93 mg/dL (0.55-1.02); EST Glomerular Filtration Rate 61 mL/min (>60); Est Glom Filt Rate - Afr Amer 74 mL/min (>60); Glucose 126 mg/dL (74-106); Potassium 3.9 mmol/L (3.5-5.1); Sodium Level 134 mmol/L (136-145)
== END | disposition home or self-care (01) ==
LOC: MFPLAB 11:44
PROVIDERS: PCP Family Medicine; Visit Provider Family Medicine
DX: E87.1 Hypo-osmolality and hyponatremia (principal)
CPT/HCPCS: 36415; 80048

== ENCOUNTER → 2024-04-03 | Outpatient (CLI) | payer MEDICARE, SELFPAY ==
--- NOTE | 2024-04-03 15:30 | EMB_PTH ---
PATHOLOGY RESULTS PATIENT: KENY BAPTISTE LOC: [facility] U#:[id number] AGE/SX: 83/F ROOM: RE04/03/[address]: Dr. Taryn Lee MD : 1940 BED: DIS: 04/03/2024 SPEC #: [id number] RECD: 04/03/24 16:59 STATUS: JUAN M JACKSON #: [id number] HANSEL: 04/03/24 15:[address]: Taryn Lee DEPT: SURGICAL PATHOLOGY RECD BY: Cheri Kemp ENTERED: 04/04/24 10:22 SP TYPE: ENDOM BX/C OTHR DR: Dr. Sukhi Mcclure MD Tissues: Endometrium, NOS Procedures: Surgery Specimen Level IV HEADER OPERATION: Endometrial biopsy PRE-OP DIAGNOSIS: Endometrial hyperplasia TISSUE SUBMITTED: Endometrial tissue MICROSCOPIC DIAGNOSIS Endometrial biopsy: Scant strips of benign endometrial epithelium. Scant fragments of benign ecto- and endocervical epithelium and mucous. See comment. 04/05/2024 COMMENT The specimen predominantly consists of mucoid tissue. Clinical correlation and appropriate follow-up are necessary. MICROSCOPIC DESCRIPTION Slides are reviewed. GROSS DESCRIPTION Received is one container labeled with the patient's name and not further designated. The specimen consists of multiple irregular fragments of smith mucoid tissue that in aggregate measure 1.5 x 1.0 x 0.1 cm. The specimen is totally submitted in one cassette. 04/04/2024 TC:4 CPT:49118
[2024-04-10 11:10] LABS: HPV APTIMA, High Risk Negative (Negative)
== END | disposition home or self-care (01) ==
LOC: LABSPEC 16:35
PROVIDERS: PCP Family Medicine; Referring Provider Obstetrics & Gynecology; Visit Provider Obstetrics & Gynecology
DX: Z12.4 Encounter for screening for malignant neoplasm of cervix (principal); N85.00 Endometrial hyperplasia, unspecified
CPT/HCPCS: 87624; 88175; 88305; G0145

== ENCOUNTER → 2024-04-11 | Outpatient (CLI) | payer MEDICARE, SELFPAY ==
--- NOTE | 2024-04-11 13:18 | MRI_ITS ---
HISTORY: POST LAMINECTOMY SYNDROME, pain radiates into legs bilaterally L greater than R. TECHNIQUE: Multiplanar and multisequence MR images of the lumbar spine were obtained without intravenous contrast. 175 images. COMPARISON: CT 02/02/2023. FINDINGS: VERTEBRAE: Vertebral body heights maintained. Degenerative bone endplate changes at multiple levels, particularly T12-L1 and L3-4. ALIGNMENT: Mild S-shaped scoliosis. Mild anterolisthesis of L3-4 and L4-5. CONUS: Normal morphology and position of the conus medullaris at L1. INTERVERTEBRAL DISCS: T12-L1: Moderate disc bulge with facet arthropathy resulting in moderate central canal stenosis and right greater than left foraminal narrowing based on the sagittal images. L1-2: Moderate disc bulge with facet arthropathy resulting in moderate central canal stenosis and bilateral foraminal narrowing. L2-3: Large disc bulge with superimposed left paracentral disc protrusion and facet arthropathy resulting in markedly severe central canal stenosis, left L3 nerve root impingement, and moderate bilateral foraminal narrowing. L3-4: Moderate posterior disc bulge osteophyte complex with facet arthropathy resulting in moderate central canal stenosis and bilateral foraminal narrowing with left L3 nerve root impingement. L4-5: Decompressive laminectomy. Residual degenerative change with osteophytes. No significant central canal stenosis. Very mild left foraminal narrowing. L5-S1: Diffuse disc bulge with facet arthropathy resulting in moderate central canal stenosis and mild-moderate bilateral foraminal narrowing. SOFT TISSUES: No paraspinal fluid collection. Mild posterior soft tissue edema. MRI/Spine Lumbar (Routine) IMPRESSION: Large disc bulge and left paracentral disc protrusion at L2-3 resulting in markedly severe spinal canal stenosis, left nerve root impingement, and moderate bilateral foraminal narrowing. Moderate multilevel degenerative disc disease at the other levels as above. L4-5 postoperative change. Electronically Signed: Kimberly Samaniego MD at 10:09 EDT ,
== END | disposition home or self-care (01) ==
PROVIDERS: PCP Family Medicine; Referring Provider Anesthesiology Pain Medicine; Visit Provider Anesthesiology Pain Medicine
DX: M96.1 Postlaminectomy syndrome, not elsewhere classified (principal)
CPT/HCPCS: 72148

== ENCOUNTER → 2024-04-27 | Outpatient (CLI) | payer MEDICARE, SELFPAY ==
[2024-04-27 18:08] LABS: Anion Gap 5 (5-15); BUN 18 mg/dL (7-18); BUN/Creat Ratio 20.4 RATIO (10-20); Calcium,Total 9.3 mg/dL (8.5-10.1); Chloride 99 mmol/L (98-107); Creatinine, Serum 0.88 mg/dL (0.55-1.02); EST Glomerular Filtration Rate 65 mL/min (>60); Est Glom Filt Rate - Afr Amer 78 mL/min (>60); Glucose 114 mg/dL (74-106); Potassium 4.2 mmol/L (3.5-5.1); Sodium Level 134 mmol/L (136-145)
== END | disposition home or self-care (01) ==
LOC: MFPLAB 14:57
PROVIDERS: PCP Family Medicine; Visit Provider Family Medicine
DX: E87.1 Hypo-osmolality and hyponatremia (principal)
CPT/HCPCS: 36415; 80048

== ENCOUNTER → 2024-05-15 | Outpatient (CLI) | payer MEDICARE, SELFPAY ==
--- NOTE | 2024-05-15 15:09 | RAD_ITS ---
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 Both hip joints have been previously replaced. Components demonstrate anatomic alignment. No plain film evidence of hardware complication, failure, or acute traumatic abnormality, no interval change noted since the previous study. No demonstrated fracture or suspicious osseous lesion within the pelvis. Persistent evidence of osteitis pubis. Retained stool in the colon RAD/Hips B/L min 2 views w/ Pelvis IMPRESSION: Bilateral hip replacements demonstrate anatomic alignment with no plain film evidence of hardware complication, failure, or acute traumatic injury. No significant interval change since the previous study. Electronically Signed: Nii Grenee MD at 18:40 EST ,
--- NOTE | 2024-05-15 15:09 | RAD_ITS ---
EXAM: XR Knee 3 Views INDICATION: Female, 83 years old. Knee pain TECHNIQUE: AP, lateral, and tangential patellar views COMPARISON: None FINDINGS: BONES: No acute fracture. No lytic or blastic lesion. JOINTS: Joints are in normal alignment. There is mild degenerative change of all 3 compartments of the knee. No periarticular inflammatory change. There is no knee joint effusion.. SOFT TISSUES: No soft tissue abnormality. RAD/Knee 3 Views IMPRESSION: No acute abnormality of the right knee Electronically Signed: Farhad Hooker MD at 1:01 EST ,
--- NOTE | 2024-05-15 15:15 | RAD_ITS ---
EXAM: XR Knee 3 Views INDICATION: Female, 83 years old. Left knee pain TECHNIQUE: AP, lateral, and tangential patellar views COMPARISON: None FINDINGS: BONES: No acute fracture. No lytic or blastic lesion. JOINTS: Joints are in normal alignment. There is mild degenerative change of all 3 compartments of the knee. Chondrocalcinosis is noted within the lateral compartment.. No periarticular inflammatory change. No knee joint effusion. SOFT TISSUES: No soft tissue abnormality. RAD/Knee 3 Views IMPRESSION: No acute abnormality of the left knee Electronically Signed: Farhad Hooker MD at 1:02 EST ,
== END | disposition home or self-care (01) ==
LOC: MTRAD 15:09
PROVIDERS: PCP Family Medicine; Referring Provider Family Medicine; Visit Provider Family Medicine
DX: M25.561 Pain in right knee (principal); M25.559 Pain in unspecified hip
CPT/HCPCS: 73521; 73562

== ENCOUNTER → 2024-08-16 | Outpatient (CLI) | payer MEDICARE, SELFPAY ==
[2024-08-16 17:39] LABS: Hematocrit 39.4 % (37-47); Hemoglobin 13.5 g/dL (12.0-15.0); Mean Corp Hgb Conc 34.3 g/dL (32-36); Mean Corpuscular Hgb 33.6 pg (27.0-32.0); Mean Platelet Vol. 8.9 fl (6.2-12.0); Platelet Count 299 K/mm3 (150-450); RBC Distribution Width CV 11.3 % (11.6-14.6); Red Blood Count 4.02 M/mm3 (4.2-5.4); White Blood Count 4.1 K/mm3 (4.4-11.0)
[2024-08-16 18:51] LABS: CPK Total, Creatine Kinase 47 U/L (24-195)
[2024-08-16 18:55] LABS: ALB/GLOB Ratio 1.6 RATIO (0.9-2.4); AST(SGOT) 24 U/L (<=31); Alanine Aminotransfer ALT/SGPT 14 U/L (<=34); Albumin, Serum 4.3 g/dL (3.4-4.8); Alkaline Phosphatase 104 U/L (35-104); Anion Gap 13 (5-15); BUN 18 mg/dL (4-19); BUN/Creat Ratio 19.6 RATIO (10-20); Calcium,Total 9.9 mg/dL (7.6-11.0); Carbon Dioxide 25.2 mmol/L (21.0-32.0); Chloride 98 mmol/L (98-108); Creatinine, Serum 0.89 mg/dL (0.70-1.20); EST Glomerular Filtration Rate 63 (>60); Globulin 2.7 g/dL (2.2-4.2); Glucose 133 mg/dL (70-99); Potassium 3.8 mmol/L (3.3-5.1); Protein, Total 7.1 g/dL (5.9-8.4); Sodium Level 136 mmol/L (133-145); Total Bilirubin 0.26 mg/dL (0.00-1.30)
[2024-08-16 20:08] LABS: Cholesterol 169 mg/dL (<=200); High Density Lipoprotein 51 mg/dL; Low Density Lipoprotein Calc. 71 mg/dL; Triglycerides 237 mg/dL; Very Low Density Lipoprotein 47 mg/dL (5-40); Vitamin D,25 Hydroxy 37.9 ng/mL (30-100); cholesterol:hdl ratio screen 3.31
== END | disposition home or self-care (01) ==
LOC: MFPLAB 14:06
PROVIDERS: Internal Medicine Cardiovascular Disease; PCP Family Medicine; Referring Provider Family Medicine; Visit Provider Family Medicine
DX: I10 Essential (primary) hypertension (principal); R53.83 Other fatigue; E55.9 Vitamin D deficiency, unspecified; E78.5 Hyperlipidemia, unspecified
CPT/HCPCS: 80053; 80061; 82306; 82550; 84443; 85027

== ENCOUNTER → 2024-11-20 | Outpatient (CLI) | payer MEDICARE, SELFPAY ==
[2024-11-20 20:21] LABS: Absolute Lymphocyte Count 1.01 X10^3/uL (0.83-4.51); Absolute Neutrophil Count 3.2 X10^3/uL (2.0-7.7); Basophil# 0.03 X10^3/uL; Basophil% 0.6 % (0-1); Eosinophil# 0.09 X10^3/uL; Eosinophils% 1.8 % (0-5); Hemoglobin 13.3 g/dL (12.0-15.0); Lymphocyte # 1.01 X10^3/ul (0.83-4.51); Lymphocyte % 20.7 % (19-41); Mean Corpuscular Hgb 33.9 pg (27.0-32.0); Mean Corpuscular Volume 96.9 fL (81-99); Monocyte# 0.55 X10^3/uL; Monocyte% 11.3 % (0-10); NRBC Flagged by Analyzer 0 % (0-5); Neutrophil # 3.18 X10^3/uL (2.7-7.7); Neutrophil % 65.2 % (47-70); Platelet Count 319 K/mm3 (150-450); RBC Distribution Width CV 11.7 % (11.6-14.6); RBC Distribution Width SD 41.4 fl (35.1-43.9); Red Blood Count 3.92 M/mm3 (4.2-5.4); White Blood Count 4.9 K/mm3 (4.4-11.0)
[2024-11-20 20:40] LABS: ALB/GLOB Ratio 1.8 RATIO (0.9-2.4); AST(SGOT) 26 U/L (<=31); Alanine Aminotransfer ALT/SGPT 21 U/L (<=34); Albumin, Serum 4.7 g/dL (3.4-4.8); Alkaline Phosphatase 101 U/L (35-104); Anion Gap 11 (5-15); BUN 20 mg/dL (4-19); BUN/Creat Ratio 26.4 RATIO (10-20); Calcium,Total 9.7 mg/dL (7.6-11.0); Carbon Dioxide 27.5 mmol/L (21.0-32.0); Chloride 93 mmol/L (98-108); Cholesterol 191 mg/dL (<=200); Creatinine, Serum 0.75 mg/dL (0.70-1.20); EST Glomerular Filtration Rate 77 (>60); Globulin 2.6 g/dL (2.2-4.2); Glucose 96 mg/dL (70-99); High Density Lipoprotein 58 mg/dL; Low Density Lipoprotein Calc. 82 mg/dL; Potassium 4.1 mmol/L (3.3-5.1); Protein, Total 7.2 g/dL (5.9-8.4); Sodium Level 132 mmol/L (133-145); Total Bilirubin 0.21 mg/dL (0.00-1.30); Triglycerides 260 mg/dL; Very Low Density Lipoprotein 52 mg/dL (5-40); Vitamin D,25 Hydroxy 37.5 ng/mL (30-100); cholesterol:hdl ratio screen 3.32
--- OUTSIDE RECORDS SUMMARY | 2024-11-20 23:50 | XMS RPT_ITS | CCD ---
Author Organization [facility] Care Team Providers Care Coke Burner Name Role Phone Taryn Lee MD Unavailable [phone] Magalys Mcclure Primary Care Provider [phone] Dr. Magalys Mcclure Primary Care Provider Dr. Magalys Mcclure Referring Provider Dr. Talat Díaz Attending Provider Dr. Talat Díaz Other Provider Dr. Magalys Mcclure Primary Care Provider Dr. Magalys Mcclure Referring Provider Dr. Talat Díaz Attending Provider Dr. Talat Díaz Other Provider Dr. Magalys Mcclure Primary Care Provider Dr. Talat Díaz Attending Provider Dr. Magalys Mcclure Referring Provider Dr. Shala Rebollar Attending Provider Magalys Mcclure Primary Care Provider Dr. Magalys Mcclure Primary Care Provider Dr. Magalys Mcclure Referring Provider Magalys Mcclure Primary Care Provider Magalys Mcclure MD Primary Care Provider Dr. Magalys Mcclure Primary Care Provider Dr. Magalys Mcclure Referring Provider Dr. Taryn Lee Attending Provider Dr. Magalys Mcclure Primary Care Provider Dr. Magalys Mcclure Referring Provider Dr. Taryn Lee Attending Provider Dr. Samir Forrest Attending Provider Dr. Magalys Mcclure Primary Care Provider [phone] Dr. Magalys Mcclure Referring Provider Dr. Magalys Mcclure Primary Care Provider Dr. Magalys Mcclure Referring Provider Dr. Taryn Lee Attending Provider Magalys Mcclure MD Primary Care Provider MARCELLA HERCULES Attending Unavailable MAGALYS MCCLURE Primary Care Unavailable VICENTA CHIRINOS Referring Unavailable MAGALYS MCCLURE Primary Care Unavailable MARCELLA HERCULES Attending Unavailable AB SHAFFER JR Referring Unavailable MARCELLA HERCULES Attending Unavailable MAGALYS MCCLURE Primary Care Unavailable VICENTA CHIRINOS Referring Unavailable MAGALYS MCCLURE Primary Care Unavailable SHARONDA DURAN Attending Unavailable MAGALYS MCCLURE Primary Care Unavailable AB SHAFFER JR Referring Unavailable AB SHAFFER JR Referring Unavailable MAGALYS MCCLURE Primary Care Unavailable AB SHAFFER JR Attending Unavailable MAGALYS MCCLURE Primary Care Unavailable AB SHAFFER JR Referring Unavailable AB SHAFFER JR Attending Unavailable MAGALYS MCCLURE Primary Care Unavailable MAGALYS MCCLURE MD Primary Care Physician Blake PT, Rebeca Unavailable Unavailable AMGALYS MCCLURE MD Primary Care Unavailable NED CHIU MD Attending Unavailable Magalys Mcclure Primary Care Unavailable Magalys Mcclure Attending Unavailable Magalys Mcclure Referring Unavailable Taryn Lee Attending Unavailable Magalys Mcclure Primary Care Unavailable Magalys Mcclure Primary Care Unavailable Magalys Mcclure Referring Unavailable Taryn Lee Attending Unavailable Magalys Mcclure Primary Care Unavailable Taryn Lee Attending Unavailable Taryn Lee Referring Unavailable Schinner, Magalys E Primary Care Unavailable Schinner, Magalys E Attending Unavailable Schinner, Magalys E Primary Care Unavailable Schinner, Magalys E Referring Unavailable Schinner, Magalys E Attending Unavailable Schinner, Magalys E Primary Care Unavailable Schinner, Magalys E Referring Unavailable Schinner, Magalys E Attending Unavailable Schinner, Magalys E Primary Care Unavailable Aldo Beavers Referring Unavailable Aldo Beavers Attending Unavailable Schinner, Magalys E Referring Unavailable Ned Chiu Attending Unavailable Schinner, Magalys E Primary Care Unavailable Schinner, Magalys E Primary Care Unavailable Olaf Mata Attending Unavailable Schinner, Magalys E Referring Unavailable Samir Forrest Attending Unavailable Schinner, Magalys E Primary Care Unavailable Schinner, Magalys E Referring Unavailable MarcanthTaryn curiel Attending Unavailable Schinner, Magalys E Primary Care Unavailable Schinner, Magalys E Primary Care Unavailable Schinner, Magalys E Referring Unavailable Samir Forrest Attending Unavailable Schinner, Magalys E Primary Care Unavailable Taryn Lee Referring Unavailable Taryn Lee Attending Unavailable Schinner, Magalys E Primary Care Unavailable Schinner, Magalys E Attending Unavailable Schinner, Magalys E Primary Care Unavailable Schinner, Magalys E Attending Unavailable Kami RICHMOND, Dr. Magalys Ceja Primary Care Provider Dr. Magalys Mcclure MD Attending Provider Kami RICHMOND, Dr. Magalys Ceja Referring Provider Jesus RICHMOND, Dr. Centeno Attending Provider [phone] Aram RICHMOND, Dr. Maria Attending Provider [phone] Esperanza RICHMOND, Dr. Babin Attending Provider Lon RICHMOND, Dr. Dawson Attending Provider [phone] Allergies Allergy Classification Reported Allergen(s) Allergy Type Date of Onset Reaction(s) Facility (2 sources) codeine Drug Allergy 03-18-20 [facility] (2 sources) ofloxacin Drug Allergy 03-18-20 [facility] (2 sources) sulfamethoxazole / trimethoprim Drug Allergy 03-18-20 [facility] (2 sources) SUMAtriptan Drug Allergy 03-18-20 [facility] (2 sources) PAIN MEDICATION drug allergy 03-18-20 [facility] (20 sources) Codeine; Translations: [CODEINE] Drug Allergy 10-18-19 Vomiting [facility] (20 sources) Morphine; Translations: [MORPHINE] Drug Allergy 10-18-19 Vomiting [facility] (20 sources) Ofloxacin; Translations: [OFLOXACIN] Drug Allergy 04-18-20 Other [facility] Work Phone: (20 sources) Pethidine analog; Translations: [OPIOIDS-MEPERIDINE AND RELATED] Propensity to adverse reactions 10-18-19 [facility] (20 sources) Sulfonamides (Antibiotic); Translations: [SULFA (SULFONAMIDE ANTIBIOTICS)] Propensity to adverse reactions 10-18-19 [facility] (20 sources) SUMAtriptan; Translations: [SUMATRIPTAN SUCCINATE] Drug Allergy 04-18-20 Other [facility] Work Phone: (20 sources) [id number] Antimigraine Agents; Translations: [[id number] ANTIMIGRAINE AGENTS] Propensity to adverse reactions 10-18-19 [facility] (18 sources) Meperidine; Translations: [meperidine HCl] Drug Allergy 01-23-20 Nausea [facility] (17 sources) Sulfamethoxazole Drug Allergy 01-23-[address] [facility] (18 sources) SUMAtriptan; Translations: [sumatriptan] Drug Allergy 01-23-20 Other [facility] (17 sources) Trimethoprim Drug Allergy 01-23-[address] [facility] (1 source) [id number] Antimigraine Agents Propensity to adverse reactions 10-18-19 [facility] (1 source) HYDROmorphone; Translations: [hydromorphone] Drug Allergy [facility] (1 source) Meperidine; Translations: [meperidine] Drug Allergy [facility] (1 source) Sulfamethoxazole / Trimethoprim; Translations: [sulfamethoxazole-tr imethoprim] Drug Allergy [facility] (1 source) Codeine Drug Allergy 07-10-19 [facility] (1 source) Morphine Drug Allergy 07-10-19 [facility] (1 source) Ofloxacin Drug Allergy 07-10-19 [facility] (1 source) Sulfamethoxazole Drug Allergy 07-10-19 [facility] (1 source) SUMAtriptan Drug Allergy 07-10-19 [facility] (1 source) SUMAtriptan Drug Allergy 07-10-19 [facility] (1 source) Trimethoprim Drug Allergy 07-10-19 [facility] Medications Current Medications Medication Drug Class(es) Dates Sig (Normalized) Sig (Original) acetaminophen 325 mg oral tablet (8 sources) Start: 04-08-2023 take 2 tablets by mouth once daily Acetaminophen (Tylenol) 325 mg tablet Active 650 mg PO DAILY April 08, 2023 12:00am augmented betamethasone 0.0005 mg/mg topical gel (20 sources) Corticosteroid Start: 10-10-2009 BETAMETHASONE, AUGMENTED 0.05 % TOPICAL GEL apply on erosions on mouth 2-3 times a day as needed 30 gr 4 10/10/2009 Active Comment on above: apply on erosions on mouth 2-3 times a day as needed calcium carbonate 1500 mg oral tablet (8 sources) Start: 04-08-2023 take 1 tablet by mouth once daily Calcium Carbonate 600 mg calcium (1,500 mg) tablet Active 600 mg PO DAILY April 08, 2023 12:00am Calcium Carbonate / vitamin D3 (20 sources) CALCIUM CARBONATE/VITAMIN D3 (VITAMIN D-3 ORAL) Take by mouth. Active CALCIUM CARBONAT E/VITAMIN D3 (VITAMIN D-3 ORAL) Take by mouth. 0 Active Comment on above: Take by mouth. 12 hr carBAMazepine 300 mg extended release oral capsule (20 sources) Mood Stabilizer Start: take 1 capsule by mouth every twelve hours at bedtime Carbamazepine 300 mg Capsule, Er Multiphase 12 Hr Active 300 mg PO AT BEDTIME January 15, 2022 12:00am Start: 05-25-2019 End: 03-02-2024 take 0.5 tablet by mouth in the morning, then take 1.5 tablets by mouth in the evening carBAMazepine (TEGRETOL) 200 mg tablet Indications: Generalized convulsive epilepsy (HCC) TAKE 1/2 TABLET BY MOUTH IN THE MORNING AND 1.5 TABLETS IN THE EVENING 180 tablet 1 03/02/2024 Active Start: 06-16-2017 take 1 tablet by carlos th once daily Carbamazepine (Tegretol) 200 mg tablet Active 100 mg PO DAILY June 16, 2017 1:00am Start: 03-18-2017 TEGRETOL 200 M G TABS take one half tablet by mouth in the morning and one and a half tablets by mouth at bedtime CARBAMAZEPINE [id number] Taryn Lee MD Comment on above: Take 1/2 tab in AM a nd 1 and 1/2 tab in PM. TAKE 1/2 TABLET BY M OUTH IN THE MORNING AND 1.5 TABLETS IN THE EVENING cholecalciferol 0.025 mg oral capsule (20 sources) Vitamin D Start: 04-08-20 take 1 capsule by mouth once daily Cholecalciferol (Vitamin D3) 25 mcg (1,000 unit) capsule Active 1000 U PO DAILY April 08, 2023 8:59am Start: 06-16-2017 End: 04-08-2023 take 1 capsule by mouth once Cholecalciferol (Vitamin D3) 1,000 unit capsule Discontinued 1000 U PO ONCE June 16, 2017 1:00am April 08, 2023 9:04am Compress.Stocking,Knee,Reg,M ed misc (1 source) Start: 07-10-2024 Compress.Stocking,Knee,Reg,M ed misc Active 0 .Route 12 July 10, 2024 1:00am 20-30 mmHg gabapentin 100 mg oral capsu le (1 source) Anti-e pilept ic Agent Start: 04-03-2024 take 1 tablet by mouth three times daily Gabapentin 100 mg tablet Active 100 mg PO THREE TIMES A DAY April 03, 2024 12:00am iv contrast (will be provide d with radiology test) (4 sources) Start: 02-21-2023 End: 02-22-2023 inject 1 dose intrav enousl y once iv contrast (will be provided with [...] link. 1 Each 0 02/21/2023 02/22/2023 Active Start: 10-20-2022 End: 10-21-2022 inject 1 dose intravenously once iv contrast [...] in the MR contrast administration guidelines link 1 Each 0 10/20/2022 10/21/2022 Active Comment on above: MRI Brain Inject, in travenously, once for 1 dose.No IV access, insert saline lock prior to beginning of sedation, infusion, injection of imaging exam.Discontinue saline lock post exam. If Pt. has a central line or IVAD, may access for administration according to line specific nursing protocol.Once exam is complete flush line and de-access according to line specific nursing protocol in the MR contrast administration guidelines link CTA Head/Neck WO/W N o IV access, insert saline lock prior to the sedation, infusion, injection for imaging exam. Discontinue saline lock post exam. If Pt. has a central line or IVAD, may access for administration according to line specific nursing protocol. Once exam is complete flush line and de-access according to line specific nursing protocol in the CT contrast administration guidelines link. multivitamin capsule (16 sources) Start: 06-16-19 18 take 1 capsule by mouth once daily multivitamin capsule Active 1 CAP PO daily June 16, 2017 12:00am Start: 06-16-2017 take 1 capsule by mo uth once daily multivitamin capsule Active 1 CAP PO daily June 16, 2017 1:00am Multivitamin capsule (1 source) Start: 06-16-2017 Multivitamin capsule Active 1 NMA PO daily June 16, 2017 1:00am multivitamins w-iron(DAILY MULTIPLE VITAMINS WITH IRON TAB) (20 sources) Start: 02-03-2010 multivitamins w-iron(DAILY MULTIPLE VITAMINS WITH IRON TAB) take one (1) tablet daily 0 02/03/2010 Active Comment on above: take one (1) tablet daily perflutren lipid microspheres 1.3 mL in NaCl (PF) 0.9% 10 mL injection (DEFINITY) (17 sources) Start: 02-21-2023 End: 05-22-2024 perflutren lipid microspheres 1.3 mL in NaCl (PF) 0.9% 10 mL injection (DEFINITY) rosuvastatin calcium 10 mg oral tablet (20 sources) HMG-CoA Reductase Inhibitor Start: 07-12-2016 take 1 tablet by mouth once daily Rosuvastatin (Crestor) 10 mg tablet Active 10 mg PO daily June 16, 2017 1:00am Comment on above: Take 1 tablet by carlos th once daily. 125 ml sodium chloride 9 mg/ml prefilled syringe (17 sources) Start: 02-21-2023 End: 05-22-2024 sodium chloride 0.9 % (flush) 10 mL (BD POSIFLUSH) verapamil hydrochloride 240 mg extended release oral tablet (20 sources) Calcium Channel Cl Start: 11-11-2022 End: 03-02-2024 take 1 tablet by mouth once daily verapamil SR (CALAN SR) 240 mg CR tablet Indications: Migraine without aura and without status migrainosus, not intractable Take 1 tablet by mouth once daily. 90 tablet 1 03/02/2024 Active Start: 05-25-2019 End: 11-09-2022 take 1 tablet by mouth once daily verapamil SR (CALAN SR, ISOPTIN SR) 240 mg CR tablet Take 1 tablet by mouth once daily. 90 tablet 0 08/02/2022 11/09/2022 Discontinued Start: 06-16-2017 take 1 capsule by mo [facility] once daily Verapamil (Verelan) 240 mg capsule,ext rel. pellets 24 hr Active 240 mg PO daily June 16, 2017 1:00am Start: 03-18-2017 VERAPAMIL HCL ER 240 MG CR-TABS VERAPAMIL HCL [id number] Taryn Lee MD Comment on above: Take 1 tablet by carlos th once daily. take 1 tablet by carlos th every day Completed/Discontinued Medications Medication Drug Class(es) Dates Sig (Normalized) Sig (Original) acetaminophen 500 mg / caffeine 65 mg oral tablet (17 sources) Central Nervous System Stimulant, Methylxanthine Start: 01-15-2022 End: 04-08-2023 Acetaminophen-Caff eine 500-65 mg Tablet Discontinued 1 {tbl} PO Q12H as needed for Pain January 15, 2022 12:00am April 08, 2023 9:03am Start: 01-15-2022 End: 04-08-2023 take 1 tablet by mouth every twelve hours Acetaminophen-Caffeine Discontinued 1 TABLET PO Q12H January 15, 2022 12:00am April 08, 2023 9:03am acetaminophen 325 mg / HYDROcodone bitartrate 5 mg oral tablet (8 sources) Opioid Agonist Start: 04-08-2023 End: 04-03-2024 Hydrocodone-Acetaminophen 5- 325 mg tablet Discontinued 1 {tbl} PO TWICE A DAY as needed April 08, 2023 12:00am April 03, 2024 3:02pm Start: 04-08-2023 take 1 tablet by carlos th twice daily Hydrocodone-Acetaminophen Active 1 TABLE T PO TWICE A DAY April 08, 2023 12:00am alendronic acid 70 mg oral tablet (20 sources) Bisphosphonate End: 08-01-2023 take 1 tablet by mouth every week in the morning alendronate (FOSAMAX) 70 mg tablet Take 70 mg by mouth one time a week. In AM with cup of water on empty stomach. Nothing else by mouth and stay upright for 30 min. 0 08/01/2023 Discontinued Comment on above: Take 70 mg by mouth one time a week. In AM with cup of water on empty stomach. Nothing else by mouth and stay upright for 30 min. Calcium (2 sources) Phosphate Binder, Calcium Start: 03-18-2017 CALCIUM + D3 600-800 MG-UNIT TABS CALCIUM CARB-CHOLECALCIFE [facility] [id number] Taryn Lee MD calcium carbonate 1500 mg / cholecalciferol 200 unt oral capsule (17 sources) Vitamin D Start: 05-08-2019 End: 04-08-2023 Calcium Carbonate-Vitamin D3 (Calcium 600 + D(3)) 600 mg calcium- 200 unit capsule Discontinued 1 NMA PO DAILY May 08, 2019 1:00am April 08, 2023 9:01am clobetasol propionate 0.0005 mg/mg topical gel (20 sources) Corticosteroid Start: 09-25-2020 End: 04-08-2023 Clobetasol 0.05 % gel Discontinued 1 NMA TOPICAL NEEDED as needed for Oral September 25, 2020 12:00am April 08, 2023 9:03am Start: 09-25-2020 End: 04-08-2023 Clobetasol Discontinued 1 AP PLIC TOPICAL NEEDED September 25, 2020 12:00am April 08, 2023 9:03am Clobetasol Propi sukumar 0.05 % gel Apply to affected area. Active Comment on above: Apply to affected ar ea. cloNIDine hydrochloride 0.2 mg oral tablet (3 sources) Central alpha-2 Adrenergic Agonist Start: End: take 1 tablet by mouth once daily Clonidine Hcl 0.2 mg tablet Discontinued 0.2 mg PO daily November 24, 2023 12:00am July 10, 2024 3:16pm take 1 tablet by mouth twice behzad ly cloNIDine HCl (CATAPRES) 0.2 mg tablet Take 0.2 mg by mouth two times a day. Active dexamethasone 0.1 mg/ml oral solution (20 sources) Corticosteroid Start: 09-25-2020 End: 04-08-2023 take 0.5 mg by mouth three times daily Dexamethasone 0.5 mg/5 mL solution Discontinued 0.5 mg PO THREE TIMES A DAY September 25, 2020 12:00am April 08, 2023 9:03am End: 08-01-2023 take 2 mg by mouth every twelve hours dexamethasone (DECADRON) 0.5 mg/5 mL Take 2 mg by mouth every 12 hours. 0 08/01/2023 Discontinued take 2 mg by mouth e very twelve hours dexamethasone (DECADRON) 0.5 mg/5 mL Take 2 mg by mouth every 12 hours. 0 Active Comment on above: Take 2 mg by mouth e very 12 hours. estradiol 0.5 mg oral tablet (20 sources) Estrogen Start: 02-13-20 End: 08-01-19 take 1 tablet by mouth once daily Estradiol 0.5 mg tablet Discontinued 0 .ROUTE .COMPLEX 90 December 20, 2022 8:19am March 17, 2023 2:07pm TAKE 1 TABLET BY MOUTH EVERY DAY Comment on above: Take 1 tablet by carlos once daily. fluticasone propionate 0.05 mg/actuat metered dose nasal spray (9 sources) Corticosteroid Start: 04-08-20 End: 11-24-19 Fluticasone Propionate 50 mcg/actuation spray,suspension Discontinued 1 NMA INTRANASAL DAILY April 08, 2023 12:00am November 24, 2023 1:03pm Start: 04-08-2023 Fluticasone Pr opionate Active 1 SPRAY INTRANASAL DAILY April 08, 2023 12:00am Start: 05-25-2019 take 1 spray(s) nasa l route once daily fluticasone proprionate NASAL 50 mcg/ spray SPRAY 1 SPRAY IN EACH NOSTRIL DAILY Start Date: 05/25/19 Status: Ordered Repeat number: 1 medroxyPROGESTERone acetate 10 mg oral tablet (20 sources) Progestin Start: 02-13-2016 End: 08-01-2023 take 1 tablet by mouth once daily as needed Medroxyprogesterone (Provera) 10 mg tablet Discontinued 10 mg PO daily as needed for climatera April 19, 2022 12:01pm May 12, 2022 4:55pm Comment on above: Take once daily for 14 days every 2-3 months meloxicam 15 mg oral tablet (20 sources) Nonsteroidal Anti-inflammator y Drug Start: 02-11-2017 End: 11-24-2023 take 1 tablet by mouth once daily Meloxicam 15 mg tablet Discontinued 15 mg PO daily June 16, 2017 1:00am November 24, 2023 1:01pm Comment on above: Take 1 tablet by carlos th once daily. for pain. Take with food. metoprolol tartrate 25 mg oral tablet (12 sources) beta-Adrenergic Cl Start: 04-14-2023 End: 07-10-2024 Metoprolol Tartrate 25 mg tablet Discontinued 12.5 mg PO TWICE A DAY January 02, 2024 3:46pm July 10, 2024 5:47pm Start: 04-14-2023 take 12.5 mg by mout h twice daily Metoprolol Tartrate Active 12.5 MG PO TWICE A DAY April 14, 2023 12:00am Comment on above: 12.5 MG ORALLY TWICE A DAY MULTIPLE VITAMINS-MINERALS (2 sources) Start: 7 MULTIVITAMIN WOMEN 50+ TABS MULTIPLE VITAMINS-MINERALS [id number] Taryn Lee MD omeprazole 20 mg delayed release oral capsule (20 sources) Proton Pump Inhibitor Start: 9 End: take 2 capsules by mouth once daily Omeprazole 20 mg capsule,delayed release(DR/EC) Discontinued 40 mg PO DAILY May 08, 2019 1:00am April 08, 2023 9:04am Start: 05-08-2019 End: 04-08-2023 take 40 mg by mouth once daily Omeprazole Discontinued 40 MG PO DAILY May 08, 2019 1:00am April 08, 2023 9:04am Start: 12-08-2018 take 1 capsule by [facility] once daily Omeprazole 20 mg capsule,delayed release(DR/EC) Active 20 mg PO DAILY April 08, 2023 8:58am Start: 07-12-2016 End: 08-01-2023 take 1 capsule by mouth once daily Omeprazole 40 mg capsule Indications: Gastroesophageal reflux disease without esophagitis Take 1 capsule by mouth once daily. 90 capsule 3 07/12/2016 08/01/2023 Discontinued Comment on above: Take 1 capsule by [facility] once daily. oxyCODONE hydrochloride 5 mg oral tablet (17 sources) Opioid Agonist Start: 022 End: take 2.5-5 mg by mouth every four hours as needed for pain Oxycodone 5 mg tablet Discontinued 2.5 - 5 mg PO Q4H as needed for pain 10 3 January 22, 2022 February 03, 2022 1:19pm progesterone 200 mg oral capsule (17 sources) Progesterone Start: 023 End: take 1 capsule by mouth once daily Progesterone Micronized 200 mg capsule Discontinued 0 .ROUTE .COMPLEX July 05, 2023 11:59am November 24, 2023 1:03pm TAKE 1 CAPSULE BY MOUTH EVERY DAY Comment on above: Take by mouth. sucralfate 1000 mg oral tablet (17 sources) Aluminum Complex Start: 018 End: take 1 tablet by mouth four times daily Sucralfate 1 GM tablet Discontinued 1 g PO 4 TIMES DAILY 120 July 08, 2017 1:00am May 08, 2019 4:16pm tacrolimus 0.001 mg/mg topical ointment (20 sources) Calcineurin Inhibitor Immunosuppressant Start: 017 End: Tacrolimus (Protopic) 0.1 % ointment Discontinued 1 NMA TOPICAL TWICE A DAY as needed for oral April 08, 2023 8:58am April 03, 2024 3:03pm Comment on above: Apply 1 application to affected area twice daily as needed. triamcinolone acetonide 0.001 mg/mg oral paste (20 sources) Corticosteroid Start: 018 End: Triamcinolone Acetonide 0.1 % paste Discontinued 1 NMA DENTAL AT BEDTIME June 16, 2017 1:00am September 25, 2020 1:04pm Start: 06-16-2017 End: 09-25-2020 Triamcinolone Acetonide Disc ontinued 1 APPLIC DENTAL AT BEDTIME June 16, 2017 1:00am September 25, 2020 1:04pm Comment on above: by DENTAL route twic e daily. 24 hr venlafaxine 37.5 mg extended release oral capsule (4 sources) Serotonin and Norepinephrine Reuptake Inhibitor Start: 09-30-19 24 End: 11-24-19 24 take 1 capsule by mouth once daily Venlafaxine (Effexor Xr) 37.5 mg capsule,extended release 24hr Discontinued 37.5 mg PO DAILY September 30, 2023 12:00am November 24, 2023 1:03pm vitamin b6 100 mg oral tablet (20 sources) Start: 07-28-19 16 End: 08-01-19 24 take 1 tablet by mouth once daily pyridoxine (VITAMIN B-6) 100 mg tablet Take 1 tablet by mouth once daily. 0 07/28/2015 08/01/2023 Discontinued Comment on above: Take 1 tablet by carlos once daily. Problems Active Problems Problem Classification Problem Date Documented Date Episodic/Chronic Cardiac dysrhythmias (15 sources) Supraventricular tachycardia; Translations: [Supraventricular tachycardia] 04-14-2023 Chronic Comment on above: 6 beat run noted on Holter monitoring. Conditions associated with dizziness or vertigo (20 sources) Dizziness; Translations: [Dizziness and giddiness] Onset: 12-01-2022 Episodic Disorders of lipid metabolism (20 sources) Hyperlipidemia; Translations: [Hyperlipidemia, unspecified] Onset: 02-02-2005 Resolved: 08-26-2015 08-26-2015 Chronic Epilepsy; convulsions (20 sources) Generalized convulsive epilepsy; Translations: [Generalized idiopathic epilepsy and epileptic syndromes, not intractable, without status epilepticus] Onset: 02-02-2005 Chronic Esophageal disorders (20 sources) Gastroesophageal reflux disease; Translations: [Gastro-esophageal reflux disease without esophagitis] Onset: 02-02-2005 02-02-2005 Chronic Essential hypertension (16 sources) Hypertensive disorder; Translations: [Essential (primary) hypertension] Onset: 08-28-2024 04-14-2023 Chronic Headache; including migraine (20 sources) Migraine without aura; Translations: [Migraine without aura, not intractable, without status migrainosus] Onset: 02-02-2005 07-12-2016 Chronic Comment on above: takes verapimil Joint disorders and dislocations; trauma-related (17 sources) Dislocation of hip joint; Translations: [Unspecified dislocation of left hip, initial encounter] 07-08-2017 Episodic Malaise and fatigue (3 sources) Other fatigue; Translations: [Fatigue] Onset: 07-10-2024 07-10-2024 Episodic Menopausal disorders (20 sources) Atrophic vaginitis; Translations: [Postmenopausal atrophic vaginitis] Onset: 05-12-2009 Resolved: 03-14-2012 05-12-2009 Chronic Comment on above: 4 mm lining, patient was noncompliant with progesterone therapy- possible cause. emb done on HRT taking cyclic provera, had bleeding episode and recommend US and EMB relizen Occlusion or stenosis of precerebral arteries (8 sources) Carotid artery stenosis; Translations: [Occlusion and stenosis of unspecified carotid artery] 04-08-2023 Chronic Other acquired deformities (2 sources) Scoliosis of lumbar spine; Translations: [Scoliosis, unspecified] 06-01-2024 Chronic Other acquired deformities (2 sources) Lumbar spondylolisthesis; Translations: [Spondylolisthesis, lumbar region] 06-01-2024 Episodic Other aftercare (3 sources) Encounter for other orthopedic aftercare; Translations: [Unspecified orthopedic aftercare] Episodic Other aftercare (1 source) Patient encounter status; Translations: [Encounter for therapeutic drug level monitoring] Episodic Other aftercare (1 source) Taking high risk medication; Translations: [Other intermodal customer service (current) drug therapy] 02-21-2023 Episodic Other and ill-defined heart disease (9 sources) Diastolic dysfunction; Translations: [Other ill-defined heart diseases] 04-14-2023 Chronic Other and ill-defined heart disease (7 sources) Other ill-defined heart diseases; Translations: [Heart disease, unspecified] Onset: 07-10-2024 04-14-2023 Chronic Other bone disease and musculoskeletal deformities (2 sources) Osteopenia; Translations: [Other specified disorders of bone density and structure, unspecified site] 06-01-2024 Episodic Other circulatory disease (2 sources) H/O: cardiovascular disease; Translations: [Personal history of other diseases of the circulatory system] 02-21-2023 Episodic Other female genital disorders (3 sources) Endometrial hyperplasia; Translations: [Endometrial hyperplasia, unspecified] 09-30-2023 Chronic Comment on above: progesterone ordered . emb done. s/p progesterone, repeat emb 04/05 Other female genital disorders (1 source) Endometrial hyperplasia, unspecified; Translations: [Endometrial hyperplasia, unspecified] 09-30-2023 Chronic Other female genital disorders (1 source) Abnormal uterine and vaginal bleeding, unspecified; Translations: [Abnormal uterine and vaginal bleeding, unspecified] Onset: 10-08-2023 Chronic Other nervous system disorders (14 sources) Carpal tunnel syndrome; Translations: [Carpal tunnel syndrome, left upper limb] 08-03-2021 Chronic Other nervous system disorders (2 sources) Neuropathy; Translations: [Polyneuropathy, unspecified] Chronic Other nervous system disorders (1 source) Bilateral carpal tunnel syndrome; Translations: [Carpal tunnel syndrome, bilateral upper limbs] Chronic Other nervous system disorders (3 sources) Carpal tunnel syndrome of left wrist; Translations: [Carpal tunnel syndrome, left upper limb] 04-08-2023 Chronic Other nervous system disorders (17 sources) Acute postoperative pain; Translations: [Other acute postprocedural pain] 01-22-2022 Episodic Other nervous system disorders (20 sources) Unsteady when standing; Translations: [Unsteadiness on feet] Onset: 12-01-2022 Episodic Other nervous system disorders (6 sources) Unsteadiness on feet; Translations: [Abnormality of gait] 04-14-2023 Episodic Other non-traumatic joint disorders (1 source) Pain in right hip joint; Translations: [Pain in right hip] Episodic Other non-traumatic joint disorders (1 source) Pain in right knee; Translations: [Pain in right knee] Onset: 06-14-2024 Episodic Other non-traumatic joint disorders (2 sources) Hip pain; Translations: [Pain in right hip] 05-31-2024 Episodic Residual codes; unclassified (2 sources) Menopause present; Translations: [Menopausal and female climacteric states] Onset: 03-18-2017 03-18-2017 Chronic Residual codes; unclassified (4 sources) Obstructive sleep apnea syndrome; Translations: [Obstructive sleep apnea (adult) (pediatric)] Chronic Residual codes; unclassified (1 source) Obstructive sleep apnea (adult) (pediatric); Translations: [MELA (obstructive sleep apnea)] Onset: 03-02-2024 Chronic Residual codes; unclassified (1 source) Localized edema; Translations: [Localized edema] Onset: 07-10-2024 Episodic Residual codes; unclassified (2 sources) Bilateral lower limb edema; Translations: [Localized edema] 07-10-2024 Episodic Spondylosis; intervertebral disc disorders; other back problems (2 sources) Postlaminectomy syndrome, not elsewhere classified; Translations: [Lumbar spondylosis] Onset: 05-02-2024 06-01-2024 Chronic Spondylosis; intervertebral disc disorders; other back problems (20 sources) Spinal stenosis of lumbar region; Translations: [Spinal stenosis, lumbar region without neurogenic claudication] Onset: 04-21-2006 04-21-2006 Episodic Unclassified (1 source) Screening mammography ; Translations: [Encounter for screening mammogram for malignant neoplasm of breast] Onset: 03-18-2017 03-18-2017 Unclassified (1 source) Supraventricular tachycardia, unspecified; Translations: [Supraventricular tachycardia, unspecified] Onset: 07-10-2024 Unclassified (1 source) Low back pain, unspecified; Translations: [Low back pain, unspecified] Onset: 05-31-2024 Unclassified (1 source) M25.551 - Pain in right hip,M48.061 - Spinal stenosis, lumbar region without neurogenic claudication Past or Other Problems Problem Classification Problem Date Documented Da te Episodic/Chronic Fluid and electrolyte disorders (4 sources) Hyponatremia; Translations: [Hypo-osmolality and hyponatremia] Onset: 03-02-2024 08-01-2023 Episodic Genitourinary symptoms and ill-defined conditions (4 sources) Urgent desire to urinate; Translations: [Urgency of urination] Onset: 05-12-2009 Resolved: 05-29-2010 05-29-2010 Episodic Other and unspecified benign neoplasm (20 sources) History of polyp of colon; Translations: [Personal history of colonic polyps] Onset: 04-19-2007 04-19-2007 Episodic Other gastrointestinal disorders (20 sources) Diarrhea; Translations: [Diarrhea, unspecified] Onset: 04-19-2007 04-19-2007 Episodic Other inflammatory condition of skin (20 sources) Lichen planus; Translations: [Lichen planus, unspecified] Onset: 03-17-2010 03-17-2010 Episodic Other non-traumatic joint disorders (1 source) Pain in right hip; Translations: [Pain in right hip] Onset: 05-31-2024 Episodic Other screening for suspected conditions (not mental disorders or infectious disease) (20 sources) Mammography abnormal; Translations: [Other abnormal and inconclusive findings on diagnostic imaging of breast] Onset: 05-16-2007 05-16-2007 Episodic Residual codes; unclassified (20 sources) Postoperative state; Translations: [Other specified postprocedural states] Onset: 10-14-2009 10-14-2009 Episodic Residual codes; unclassified (4 sources) Disturbance of consciousness; Translations: [Transient alteration of awareness] Onset: 01-03-2006 Resolved: 03-17-2016 03-17-2016 Episodic Results Test Name Value Interpretation Reference Range Facility Anion gap in Serum or Plasma Ordered By: Samir Forrest on 08-16-2024 Anion gap [Moles/Vol] 13 mmol/L 5-15 [facility] BUN/creatinine ratioOrdered By: Samir Forrest on 08-16-2024 Urea nitrogen/Creatinine [Mass ratio] 19.6 mg/mg 10-20 [facility] Bilirubin, totalOrdered By: Samir Forrest on 08-16-2024 Bilirubin [Mass/Vol] 0.26 mg/dL 0.00-1.30 [facility] CBC-Complete Blood Cnt No Di ffon 08-16-2024 Erythrocyte distribution width (RBC) [Ratio] 11.3 % Low 11.6-14.6 [facility] Comment on above: Performed By: #### L 100.0500, L501.3620, L501.9520, L500.4050 ####[facility] [address] [place], [address] Hematocrit (Bld) [Volume fraction] 39.4 % Normal 37-47 [facility] Comment on above: Performed By: #### L 100.0500, L501.3620, L501.9520, L500.4050 ####[facility] [address] [place], [address] Hemoglobin (Bld) [Mass/Vol] 13.5 g/dL Normal 12.0-15.0 [facility] Comment on above: Performed By: #### L 100.0500, L501.3620, L501.9520, L500.4050 ####[facility] [address] [place], [address] MCH (RBC) [Entitic mass] 33.6 pg High 27.0-32.0 [facility] Comment on above: Performed By: #### L 100.0500, L501.3620, L501.9520, L500.4050 ####[facility] [address] [place], [address] MCHC (RBC) [Mass/Vol] 34.3 g/dL Normal 32-36 [facility] Comment on above: Performed By: #### L 100.0500, L501.3620, L501.9520, L500.4050 ####[facility] [address] [place], [address] MCV (RBC) [Entitic vol] 98.0 fL Normal 81-99 [facility] Comment on above: Performed By: #### L 100.0500, L501.3620, L501.9520, L500.4050 ####[facility] [address] [place], [address] Platelet mean volume (Bld) [Entitic vol] 8.9 fL Normal 6.2-12.0 [facility] Comment on above: Performed By: #### L 100.0500, L501.3620, L501.9520, L500.4050 ####[facility] [address] [place], [address] Platelets (Bld) [#/Vol] 299 10*3/uL Normal 150-450 [facility] Comment on above: Performed By: #### L 100.0500, L501.3620, L501.9520, L500.4050 ####[facility] [address] [place], [address] RBC (Bld) [#/Vol] 4.02 10*6/uL Low 4.2-5.4 [facility] Comment on above: Performed By: #### L 100.0500, L501.3620, L501.9520, L500.4050 ####[facility] [address] [place], [address] RDW SD 41.0 fl Normal 35.1-43.9 [facility] Comment on above: Performed By: #### L 100.0500, L501.3620, L501.9520, L500.4050 ####[facility] [address] [place], [address] WBC (Bld) [#/Vol] 4.1 10*3/uL Low 4.4-11.0 [facility] Comment on above: Performed By: #### L 100.0500, L501.3620, L501.9520, L500.4050 ####[facility] [address] [place], [address] CPK Total, Creatine Kinaseon 08-16-2024 CPK TOTAL 47 U/L Normal 24-195 [facility] Comment on above: Performed By: #### L 100.0500, L501.3620, L501.9520, L500.4050 ####[facility] [address] [place], [address] Calculated very low density lipoprotein (VLDL) cholesterol measurementOrdered By: Magalys Mcclure on 08-16-2024 VLDL Cholesterol 47 mg/dL High 5-40 [facility] Carbon dioxide, total [Moles /volume] in Central venous bloodOrdered By: Samir Forrest on 08-16-2024 CO2 [Moles/Vol] 25.2 mmol/L 21.0-32.0 [facility] Chloride assayOrdered By: Irving Forrest on 08-16-2024 Chloride [Moles/Vol] 98 mmol/L 98-108 [facility] Comprehensive Metabolic Prof ilon 08-16-2024 Albumin [Mass/Vol] 4.3 g/dL Normal 3.4-4.8 [facility] Comment on above: Performed By: #### L 100.0500, L501.3620, L501.9520, L500.4050 ####[facility] [address] [place], [address] Albumin/Globulin [Mass ratio] 1.6 {ratio} Normal 0.9-2.4 [facility] Comment on above: Performed By: #### L 100.0500, L501.3620, L501.9520, L500.4050 ####[facility] [address] [place], [address] ALK PHOS 104 U/L Normal 35-104 [facility] Comment on above: Performed By: #### L 100.0500, L501.3620, L501.9520, L500.4050 ####[facility] [address] [place], [address] ALT [Catalytic activity/Vol] 14 U/L Normal <=34 [facility] Comment on above: Performed By: #### L 100.0500, L501.3620, L501.9520, L500.4050 ####[facility] [address] [place], [address] AST [Catalytic activity/Vol] 24 U/L Normal <=31 [facility] Comment on above: Performed By: #### L 100.0500, L501.3620, L501.9520, L500.4050 ####[facility] [address] [place], [address] Bilirubin [Mass/Vol] 0.26 mg/dL Normal 0.00-1.30 [facility] Comment on above: Performed By: #### L 100.0500, L501.3620, L501.9520, L500.4050 ####[facility] [address] [place], [address] BUN/CRE 19.6 RATIO Normal 10-20 [facility] Comment on above: Performed By: #### L 100.0500, L501.3620, L501.9520, L500.4050 ####[facility] [address] [place], [address] Calcium [Mass/Vol] 9.9 mg/dL Normal 7.6-11.0 [facility] Comment on above: Performed By: #### L 100.0500, L501.3620, L501.9520, L500.4050 ####[facility] [address] [place], [address] Chloride [Moles/Vol] 98 mmol/L Normal 98-108 [facility] Comment on above: Performed By: #### L 100.0500, L501.3620, L501.9520, L500.4050 ####[facility] [address] [place], [address] CO2 [Moles/Vol] 25.2 mmol/L Normal 21.0-32.0 [facility] Comment on above: Performed By: #### L 100.0500, L501.3620, L501.9520, L500.4050 ####[facility] [address] [place], [address] Creatinine [Mass/Vol] 0.89 mg/dL Normal 0.70-1.20 [facility] Comment on above: Performed By: #### L 100.0500, L501.3620, L501.9520, L500.4050 ####[facility] [address] [place], [address] GAP 13 Normal 5-15 [facility] Comment on above: Performed By: #### L 100.0500, L501.3620, L501.9520, L500.4050 ####[facility] [address] [place], [address] GFR/1.73 sq M.predicted among non-blacks MDRD (S/P/Bld) [Vol rate/Area] 63 mL/min/{1.73_m2} Normal >60 [facility] Comment on above: Result Comment: mL/m in/1.73m2 CKD-EPI Creatinine Equation (2020) Performed By: #### L 100.0500, L501.3620, L501.9520, L500.4050 ####[facility] [address] [place], [address] Globulin (S) [Mass/Vol] 2.7 g/dL Normal 2.2-4.2 [facility] Comment on above: Performed By: #### L 100.0500, L501.3620, L501.9520, L500.4050 ####[facility] [address] [place], [address] Glucose [Mass/Vol] 133 mg/dL High 70-99 [facility] Comment on above: Performed By: #### L 100.0500, L501.3620, L501.9520, L500.4050 ####[facility] [address] [place], [address] Potassium [Moles/Vol] 3.8 mmol/L Normal 3.3-5.1 [facility] Comment on above: Performed By: #### L 100.0500, L501.3620, L501.9520, L500.4050 ####[facility] [address] [place], [address] Sodium [Moles/Vol] 136 mmol/L Normal 133-145 [facility] Comment on above: Performed By: #### L 100.0500, L501.3620, L501.9520, L500.4050 ####[facility] [address] [place], [address] T PROT 7.1 g/dL Normal 5.9-8.4 [facility] Comment on above: Performed By: #### L 100.0500, L501.3620, L501.9520, L500.4050 ####[facility] [address] [place], [address] Urea nitrogen [Mass/Vol] 18 mg/dL Normal 4-19 [facility] Comment on above: Performed By: #### L 100.0500, L501.3620, L501.9520, L500.4050 ####[facility] [address] [place], [address] Erythrocyte distribution wid th ratioOrdered By: Samir Forrest on 08-16-2024 Erythrocyte distribution width (RBC) [Ratio] 11.3 % Low 11.6-14.6 [facility] Erythrocyte distribution wid th standard deviationOrdered By: Samir Forrest on 08-16-2024 Erythrocyte distribution width (RBC) [Entitic vol] 41.0 fL 35.1-43.9 [facility] GFR/1.73 sq M.predicted lb g non-blacks MDRD (S/P/Bld) [Vol rate/Area]Ordered By: Samir Forrest on 08-16-2024 Estimated GFR (MDRD) Non-Af Amer 63 >60 [facility] Comment on above: mL/min/1.73m2 CKD-EP I Creatinine Equation (2020) Hematocrit Auto (Bld) [Volum e fraction]Ordered By: Samir Forrest on 08-16-2024 Hematocrit (Bld) [Volume fraction] 39.4 % 37-47 [facility] Hemoglobin measurementOrdere d By: Samir Forrest on 08-16-2024 Hemoglobin (Bld) [Mass/Vol] 13.5 g/dL 12.0-15.0 [facility] L506.1001on 08-16-2024 Vitamin D 25-OH 37.9 ng/mL Normal 30-100 [facility] Comment on above: Order Comment: Order Date: 08/16/24Order Info: [id number] - LIPID Result Comment: Milagros min D Status Deficiency: <20 ng/mL (50nmol/L) Insufficiency: 20-30 ng/mL (50-75 nmol/L) Sufficiency: 30-100 ng/mL (75-250 nmol/L) Toxicity: >100 ng/mL (>250 nmol/L) Performed By: #### L 506.1007 ####[facility] [address] [place], [place], [address] LDL calc ser/plasOrdered By: Magalys Mcclure on 08-16-2024 LDL Cholesterol, Calculated 71 mg/dL [facility] Comment on above: Sujijfeetf=829-529 m g/dL & Higher Rqsl=362 mg/dL or greater Laboratory - Chemistry and C hemistry - challengeOrdered By: Samir Forrest on 08-16-2024 AST [Catalytic activity/Vol] 24 U/L <32 [facility] Lipid Profileon 08-16-2024 CHOL:HDL 3.31 Normal [facility] Comment on above: Order Comment: Order Date: 08/16/24Order Info: [id number] - LIPID Performed By: #### L 500.3098 ####[facility] [address] [place], [place], [address] Cholesterol [Mass/Vol] 169 mg/dL Normal <=200 [facility] Comment on above: Order Comment: Order Date: 08/16/24Order Info: [id number] - LIPID Result Comment: Chol esterol level, Desirable <200 mg/dL Borderline high cholesterol 200-239 mg/dL High cholesterol >=240 mg/dL Recommendations of the NCEP Adult Treatment Panel for the following risk-cutoff thresholds for the [place] population. Performed By: #### L 500.4100 ####[facility] [address] [place], [address] Cholesterol in HDL [Mass/Vol] 51 mg/dL Normal [facility] Comment on above: Order Comment: Order Date: 08/16/24Order Info: [id number] - LIPID Result Comment: Luli onal Cholesterol Education Program (NCEP) guidelines: <40 mg/dL: Low HDL-cholesterol (major risk factor for CHD) >= 60 mg/dL: High HDL-cholesterol (negative risk factor for CHD) HDL-cholesterol is affected by a number of factors, e.g. smoking, exercise, hormones, sex and age. Performed By: #### L 500.4100 ####[facility] [address] [place], [address] Cholesterol in LDL [Mass/Vol] 71 mg/dL Normal [facility] Comment on above: Order Comment: Order Date: 08/16/24Order Info: [id number] - LIPID Result Comment: Bord kegtdn=775-764 mg/dL Higher Ebtz=632 mg/dL or greater Performed By: #### L 500.4100 ####[facility] [address] [place], [address] Cholesterol in VLDL [Mass/Vol] 47 mg/dL High 5-40 [facility] Comment on above: Order Comment: Order Date: 08/16/24Order Info: [id number] - LIPID Performed By: #### L 500.4100 ####[facility] [address] [place], [address] Triglyceride [Mass/Vol] 237 mg/dL High [facility] Comment on above: Order Comment: Order Date: 08/16/24Order Info: [id number] - LIPID Result Comment: The drugs N-Acetylcysteine and Metamizole may falsely depress this assay. Normal range: <150 mg/dL Borderline High: 150-199 mg/dL High: 200-499 mg/dL Very High: >500 mg/dL Performed By: #### L 500.4105 ####[facility] [address] [place], [address] MCV (mean corpuscular volume ) determinationOrdered By: Samir Forrest on 08-16-2024 MCV (RBC) [Entitic vol] 98.0 fL 81-99 [facility] Mean corpuscular hemoglobin (MCH) determinationOrdered By: Samir Forrest on 08-16-2024 MCH (RBC) [Entitic mass] 33.6 pg High 27.0-32.0 [facility] Mean corpuscular hemoglobin concentration (MCHC) determinationOrdered By: Samir Forrest on 08-16-2024 MCHC (RBC) [Mass/Vol] 34.3 g/dL 32-36 [facility] Mean platelet volume determi nationOrdered By: Samir Forrest on 08-16-2024 Platelet mean volume (Bld) [Entitic vol] 8.9 fL 6.2-12.0 [facility] Platelet countOrdered By: Irving Forrest on 08-16-2024 Platelets (Bld) [#/Vol] 299 10*3/uL 150-450 [facility] Potassium (Unsp spec) [Mass/ Vol]Ordered By: Samir Forrest on 08-16-2024 Potassium [Moles/Vol] 3.8 mmol/L 3.3-5.1 [facility] RBC Auto (Bld) [#/Vol]Ordere d By: Samir Forrest on 08-16-2024 RBC (Bld) [#/Vol] 4.02 10*6/uL Low 4.2-5.4 [facility] Screening total cholesterol/ high density lipoprotein (HDL) cholesterol ratioOrdered By: Magalys Mcclure on 08-16-2024 Cholesterol.total/Marcelina sterol in HDL [Mass ratio] 3.31 {ratio} [facility] Serum creatinine measurement (mass/volume)Ordered By: Samir Forrest on 08-16-2024 Creatinine [Mass/Vol] 0.89 mg/dL 0.70-1.20 [facility] Serum globulin measurementOr dered By: Samir Forrest on 08-16-2024 Globulin (S) [Mass/Vol] 2.7 g/dL 2.2-4.2 [facility] Serum glucose measurement (m ass/volume)Ordered By: Samir Forrest on 08-16-2024 Glucose [Mass/Vol] 133 mg/dL High 70-99 [facility] Serum or plasma alanine meraz otransferase (ALT) measurementOrdered By: Samir Forrest on 08-16-2024 ALT [Catalytic activity/Vol] 14 U/L <35 [facility] Serum or plasma albumin julius urement (mass/volume)Ordered By: Samir Forrest on 08-16-2024 Albumin [Mass/Vol] 4.3 g/dL 3.4-4.8 [facility] Serum or plasma albumin/glob ulin mass ratioOrdered By: Samir Forrest on 08-16-2024 Albumin/Globulin [Mass ratio] 1.6 {ratio} 0.9-2.4 [facility] Serum or plasma alkaline vandana sphatase measurementOrdered By: Samir Forrest on 08-16-2024 ALP [Catalytic activity/Vol] 104 U/L 35-104 [facility] Serum or plasma calcium julius urement (mass/volume)Ordered By: Samir Forrest on 08-16-2024 Calcium [Mass/Vol] 9.9 mg/dL 7.6-11.0 [facility] Serum or plasma cholesterol in HDL measurement (mass/volume)Ordered By: Magalys Mcclure on 08-16-2024 Cholesterol in HDL [Mass/Vol] 51 mg/dL >40 [facility] Comment on above: National Cholesterol Education Program (NCEP) guidelines:<40 mg/dL: Low HDL-cholesterol (major risk factor for CHD)>= 60 mg/dL: High HDL-cholesterol (negative risk factor for CHD)HDL-cholesterol is affected by a number of factors, e.g. smoking, exercise, hormones, sex and age. Serum or plasma cholesterol measurement (mass/volume)Ordered By: Magalys Mcclure on 08-16-2024 Cholesterol [Mass/Vol] 169 mg/dL <201 [facility] Comment on above: Cholesterol level, D esirable <200 mg/dLBorderline high cholesterol 200-239 mg/dLHigh cholesterol >=240 mg/dLRecommendations of the NCEP Adult Treatment Panel for the following risk-cutoff thresholds for the [place] population. Serum or plasma creatine kin ase activityOrdered By: Samir Forrest on 08-16-2024 CK [Catalytic activity/Vol] 47 U/L 24-195 [facility] Serum or plasma urea nitroge n measurement (mass/volume)Ordered By: Samir Forrest on 08-16-2024 Urea nitrogen [Mass/Vol] 18 mg/dL 4-19 [facility] Sodium levelOrdered By: Shlomo Forrest on 08-16-2024 Sodium [Moles/Vol] 136 mmol/L 133-145 [facility] TSH DL <= 0.005 mIU/L QnOrde red By: Samir Forrest on 08-16-2024 Thyroid Stimulating Hormone (TSH) 1.950 uIU/mL 0.300-4.200 [facility] Thyroid Stim Hormone (TSH)on 08-16-2024 TSH 1.950 uIU/mL Normal 0.300-4.200 [facility] Comment on above: Performed By: #### L 100.0500, L501.3620, L501.9520, L500.4050 ####[facility] [address] [place], [address] Total proteinOrdered By: Alexandra Forrest on 08-16-2024 Protein [Mass/Vol] 7.1 g/dL 5.9-8.4 [facility] Triglycerides measurementOrd ered By: Magalys Mcclure on 08-16-2024 Triglyceride [Mass/Vol] 237 mg/dL High <199 [facility] Comment on above: The drugs N-Acetylcy steine and Metamizole may falsely depress this assay. Normal range: <150 mg/dLBorderline High: 150-199 mg/dLHigh: 200-499 mg/dLVery High: >500 mg/dL Vitamin D, 25-hydroxyOrdered By: Magalys Mcclure on 08-16-2024 Vitamin D 25-Hydroxy 37.9 ng/mL 30-100 [facility] Comment on above: Vitamin D StatusDefi ciency: <20 ng/mL (50nmol/L)Insufficiency: 20-30 ng/mL (50-75 nmol/L)Sufficiency: 30-100 ng/mL (75-250 nmol/L)Toxicity: >100 ng/mL (>250 nmol/L) White blood cell (WBC) count Ordered By: Samir Forrest on 08-16-2024 WBC (Bld) [#/Vol] 4.1 10*3/uL Low 4.4-11.0 [facility] Cardiology Visit Reporton Cardiology Visit Report [facility] [address] [facility] [place] [address] OFFICE VISIT Date of Service: 07/10/24 MR#: [id number] Acct: [id number] Name: KATRINA MANCINI Rep #: [id number] : 1940 Provider: Dr. Samir Forrest MD Age/Sex: 84/F Location: [facility] [place] Status: Signed HPI HPI History of Present Illness Details: This lady is here for follow-up visit. She denies any chest pains or shortness of breath. No orthopnea. No PND. Lately she has been noticing some ankle edema. No palpitations. She also complains of being fatigued. Intake Vital Signs 04/03/24 15:06 05/24/24 13:47 07/10/24 08:50 Height 5 ft 3 in 5 ft 3 in 5 ft 3 in Weight: 135 lb 4 oz 137 lb BMI 23.9 24.3 BP 136/70 H 107/59 L Blood Pressure Location Lt brachial Position Sitting Respiration 16 Pulse 58 L Pulse Source NIBP Intake Visit Reasons: 7 M FU [employer] Required: No Accompanied by: Self Is patient in pain?: No Allergies codeine Adverse Reaction (Mild, Verified 07/10/24 13:40) Vomiting meperidine HCl (From Demerol) Adverse Reaction (Mild, Verified 07/10/24 13:40) Nausea morphine Adverse Reaction (Mild, Verified 07/10/24 13:40) Vomiting ofloxacin (From Floxin) Adverse Reaction (Mild, Verified 07/10/24 13:40) Other sulfamethoxazole (From Bactrim) Adverse Reaction (Mild, Verified 07/10/24 13:40) Nausea sumatriptan (From Imitrex) Adverse Reaction (Mild, Verified 07/10/24 13:40) Other sumatriptan succinate (From Imitrex) Adverse Reaction (Mild, Verified 07/10/24 13:40) Other trimethoprim (From Bactrim) Adverse Reaction (Mild, Verified 07/10/24 13:40) Nausea Medications ???Medication ???Instructions ???Recorded ???Confirmed ???Type carbamazepine 200 mg tablet 100 mg PO DAILY 06/16/17 05/31/24 History (Tegretol) multivitamin 1 cap PO QDAY 06/16/17 05/31/24 History rosuvastatin 10 mg tablet (Crestor) 10 mg PO QDAY 06/16/17 05/31/24 History verapamil 240 mg 24 hr 240 mg PO QDAY 06/16/17 05/31/24 History capsule,extended release (Verelan) carbamazepine 300 mg 300 mg PO QHS 01/15/22 05/31/24 History capsule,extended release [id number] acetaminophen 325 mg tablet 650 mg PO DAILY 04/08/23 05/31/24 History (Tylenol) calcium carbonate 600 mg PO DAILY 04/08/23 05/31/24 History cholecalciferol (vitamin D3) 25 1,000 unit PO DAILY 04/08/23 05/31/24 History mcg (1,000 unit) capsule omeprazole 20 mg capsule,delayed 20 mg PO DAILY 04/08/23 05/31/24 History release clonidine HCl 0.2 mg tablet 0.2 mg PO QDAY 11/24/23 05/31/24 History metoprolol tartrate 25 mg tablet 12.5 mg (1/2 x 25 mg) PO BID #90 01/02/24 05/31/24 Rx tabs gabapentin 100 mg tablet 100 mg PO TID 04/03/24 05/31/24 History Ejection fraction %: 64 Have you fallen in the past year?: Yes (no major injury; right sided residual discomfort) [facility] Medical History Arthritis Back pain BPPV (benign paroxysmal positional vertigo) Cancer Carotid stenosis Climacteric Diastolic dysfunction without heart failure Dizziness Dysphagia Epilepsy Excessive bleeding Generalized convulsive epilepsy GERD (gastroesophageal reflux disease) GERD (gastroesophageal reflux disease) Hyperlipidemia Hypertension Hyponatremia Left carpal tunnel syndrome Migraine Neuropathy Oral lichen planus MELA (obstructive sleep apnea) Other acute postprocedural pain Postmenopausal bleeding Seizure Sleep apnea Supraventricular tachycardia Unsteadiness Vaginal atrophy Vestibular disorder ( 09/30/23) Wears glasses Surgical History H/O hand surgery History of Achilles tendon repair History of bilateral hip replacements History of dilation and curettage History of laminectomy History of tonsillectomy History of tubal ligation History of vein stripping S/P cataract extraction Family History Mother Heart disease Hypertension CAD (coronary artery disease) Brother AAA (abdominal aortic aneurysm, ruptured) Sister AAA (abdominal aortic aneurysm, ruptured) Social History current occupational status: retired Smoking Status: Never smoker alcohol intake: never substance use type: does not use caffeine: Yes Type: carbonated beverages what type of physical activity do you participate in: walking seatbelt use: always do you feel safe at home: Yes additional social history: Ronnie- Both are retired ROS Const Const: Negative for fatigue, weakness, headache(s) or weight gain ENT ENT: Negative for headache(s), dizziness, Nosebleed/epistaxis or balance problems Cardio Chest Pain: No Palpitations: No Edema: (more content not included)... Normal [facility] HIP, UNI W/ Pelvis 2-3 Views on 05-31-2024 HIP, UNI W/ Pelvis 2-3 Views [facility] [address] [place] [address] HIP, UNI W/ Pelvis 2-3 Views MR#: [id number] Acct: [id number] Name: EMILEKATRINA GARLAND Rep #: [id number] : 1940 F 83 From: London Patterson DO PCP: Dr. Magalys Mcclure MD Status: DEP AMB Study: HIP, UNI W/ Pelvis 2-3 Views Date of Exam: Exam# [id number] Ordering Dr: Ned Chiu MD [id number] INDICATION: pain EXAMINATION/TECHNIQUE: X-RAY - XR Hip Unilateral with Pelvis when performed; 2-3 Views COMPARISON: FINDINGS: PELVIC BONES: No displaced fracture, destructive or sclerotic lesions. Note that overlapping bowel shadows may however obscure fine detail. Sacroiliac joints are unremarkable. No widening of the pubic symphysis. Lower lumbar degenerative changes and scoliosis. HIPS: Bilateral hip prosthesis in place. No displaced fracture seen in this frontal view. SOFT TISSUES: No soft tissue swelling or gas. RAD/HIP, UNI W/ Pelvis 2-3 Views IMPRESSION: No evidence of displaced pelvic or hip fracture. Electronically Signed: London Patterson DO at 21:01 EST Reading Location ID and State: [address] [place] [address] Tel [phone], Service support , CC: Dr. Ned Chiu MD; Dr. Magalys Mcclure MD Reference Services Head: Signed Normal [facility] L/S Spine Min 4 Views05-13 L/S Spine Min 4 Views [facility] [address] [place] [address] L/S Spine Min 4 Views MR#: [id number] Acct: [id number] Name: KATRINA MANCINI Rep #: [id number] : 1940 F 83 From: London Patterson DO PCP: Dr. Magalys Mcclure MD Status: DEP AMB Study: L/S Spine Min 4 Views Date of Exam: 05/31/24 Exam# [id number] Ordering Dr: Nicolette Mcmillan [id number] STUDY: X-RAY - LUMBAR SPINE REASON FOR EXAM: Female, 83 years old. pain -- please do upright AP, LAT, flex/ext TECHNIQUE: 4 view(s) of the lumbar spine were obtained. COMPARISON: None FINDINGS: Normal lumbar lordosis. There is a mild scoliosis. Grade 1 spondylolisthesis at L4-5. Degenerative changes of the vertebral bodies with spurring of the endplates. Narrowed disc space heights. Calcified aorta. Bilateral hip prosthesis are noted. RAD/L/S Spine Min 4 Views IMPRESSION: Degenerative changes and scoliosis of the lumbar spine. Electronically Signed: London Patterson DO at 21:08 EST Reading Location ID and State: [facility] [place] Tel [phone], Service support , CC: MONA Rosas; Dr. Magalys Mcclure MD Reference Services Head: Signed Normal [facility] Orthopedic Visit Reporton Orthopedic Visit Report [facility] [address] [place] [address] [place] [address] OFFICE VISIT Date of Service: 05/31/24 MR#: [id number] Acct: [id number] Name: KATRINA MANCINI Rep #: [id number] : 1940 Provider: Dr. Ned Chiu MD Age/Sex: 83/F Location: [facility] [place] Status: Signed Intake Vital Signs 04/03/24 15:06 05/24/24 13:47 Height 5 ft 3 in 5 ft 3 in Weight: 135 lb 4 oz BMI 23.9 BP 136/70 H Intake Visit Reasons: LUMBAR SPINE Accompanied by: Daughter Is patient in pain?: Yes Allergies codeine Adverse Reaction (Mild, Verified 05/31/24 13:50) Vomiting meperidine HCl (From Demerol) Adverse Reaction (Mild, Verified 05/31/24 13:50) Nausea morphine Adverse Reaction (Mild, Verified 05/31/24 13:50) Vomiting ofloxacin (From Floxin) Adverse Reaction (Mild, Verified 05/31/24 13:50) Other sulfamethoxazole (From Bactrim) Adverse Reaction (Mild, Verified 05/31/24 13:50) Nausea sumatriptan (From Imitrex) Adverse Reaction (Mild, Verified 05/31/24 13:50) Other sumatriptan succinate (From Imitrex) Adverse Reaction (Mild, Verified 05/31/24 13:50) Other trimethoprim (From Bactrim) Adverse Reaction (Mild, Verified 05/31/24 13:50) Nausea Medications ???Medication ???Instructions ???Recorded ???Confirmed ???Type carbamazepine 200 mg tablet 100 mg PO DAILY 06/16/17 05/31/24 History (Tegretol) multivitamin 1 cap PO QDAY 06/16/17 05/31/24 History rosuvastatin 10 mg tablet (Crestor) 10 mg PO QDAY 06/16/17 05/31/24 History verapamil 240 mg 24 hr 240 mg PO QDAY 06/16/17 05/31/24 History capsule,extended release (Verelan) carbamazepine 300 mg 300 mg PO QHS 01/15/22 05/31/24 History capsule,extended release [id number] acetaminophen 325 mg tablet 650 mg PO DAILY 04/08/23 05/31/24 History (Tylenol) calcium carbonate 600 mg PO DAILY 04/08/23 05/31/24 History cholecalciferol (vitamin D3) 25 1,000 unit PO DAILY 04/08/23 05/31/24 History mcg (1,000 unit) capsule omeprazole 20 mg capsule,delayed 20 mg PO DAILY 04/08/23 05/31/24 History release clonidine HCl 0.2 mg tablet 0.2 mg PO QDAY 11/24/23 05/31/24 History metoprolol tartrate 25 mg tablet 12.5 mg (1/2 x 25 mg) PO BID #90 01/02/24 05/31/24 Rx tabs gabapentin 100 mg tablet 100 mg PO TID 04/03/24 05/31/24 History Have you fallen in the past year?: Yes [facility] Medical History (Updated 06/01/24 @ 08:[address] Ned Chiu MD) Supraventricular tachycardia Hypertension Vestibular disorder ( 09/30/23) Diastolic dysfunction without heart failure Epilepsy Carotid stenosis Neuropathy MELA (obstructive sleep apnea) Unsteadiness Dizziness Generalized convulsive epilepsy BPPV (benign paroxysmal positional vertigo) Dysphagia Hyponatremia Postmenopausal bleeding Other acute postprocedural pain Excessive bleeding Wears glasses Cancer Arthritis Back pain Left carpal tunnel syndrome Climacteric Vaginal atrophy GERD (gastroesophageal reflux disease) Migraine GERD (gastroesophageal reflux disease) Hyperlipidemia Seizure Sleep apnea Oral lichen planus Surgical History H/O hand surgery S/P cataract extraction History of dilation and curettage History of laminectomy History of Achilles tendon repair History of vein stripping History of tubal ligation History of tonsillectomy History of bilateral hip replacements Family History Mother Heart disease Hypertension CAD (coronary artery disease) Brother AAA (abdominal aortic aneurysm, ruptured) Sister AAA (abdominal aortic aneurysm, ruptured) Social History current occupational status: retired Smoking Status: Never smoker alcohol intake: never substance use type: does not use caffeine: Yes Type: carbonated beverages what type of physical activity do you participate in: walking seatbelt use: always do you feel safe at home: Yes additional social history: Ronnie- Both are retired HPI LUMBAR SPINE Details: This documentation accurately reflects the service provided and the decisions made by me, Dr. Ned Chiu MD 05/31/24 [id number]. Part of today???s visit was documented by [ ], acting as scribe. KATRINA MANCINI is a 83 year old F here today for low back pain. She notes that she has had pain about a year and a half. She denies any injury. Patient had lumbar spine surgery for a laminectomy in 1991 in [place]. She complains of pain from her lumbar spine into her left leg, stopping at her knee. She notes that right now most of her pain it in her right buttock from a recent fall, 2 days ago, falling into a sandstone block. She also has had bilateral total hip, and revision of total hip. She denies any n (more content not included)... 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) [employer] Required: No Is patient in pain?: Yes (back pain, herniated disc) Feel stressed/tense/nervous /anxious/difficulty sleeping: not at all Allergies codeine Adverse Reaction (Mild, Verified 05/24/24 13:49) Vomiting meperidine HCl (From Demerol) Adverse Reaction (Mild, Verified 05/24/24 13:49) Nausea morphine Adverse Reaction (Mild, Verified 05/24/24 13:49) Vomiting ofloxacin (From Floxin) Adverse Reaction (Mild, Verified 05/24/24 13:49) Other sulfamethoxazole (From Bactrim) Adverse Reaction (Mild, Verified 05/24/24 13:49) Nausea sumatriptan (From Imitrex) Adverse Reaction (Mild, Verified 05/24/24 13:49) Other sumatriptan succinate (From Imitrex) Adverse Reaction (Mild, Verified 05/24/24 13:49) Other trimethoprim (From Bactrim) Adverse Reaction (Mild, Verified 05/24/24 13:49) Nausea Medications ???Medication ???Instructions ???Recorded ???Confirmed ???Type carbamazepine 200 mg tablet 100 mg PO DAILY 06/16/17 05/24/24 History (Tegretol) multivitamin 1 cap PO QDAY 06/16/17 05/24/24 History rosuvastatin 10 mg tablet (Crestor) 10 mg PO QDAY 06/16/17 05/24/24 History verapamil 240 mg 24 hr 240 mg PO QDAY 06/16/17 05/24/24 History capsule,extended release (Verelan) carbamazepine 300 mg 300 mg PO QHS 01/15/22 05/24/24 History capsule,extended release [id number] acetaminophen 325 mg tablet 650 mg PO DAILY 04/08/23 05/24/24 History (Tylenol) calcium carbonate 600 mg PO DAILY 04/08/23 05/24/24 History cholecalciferol (vitamin D3) 25 1,000 unit PO DAILY 04/08/23 05/24/24 History mcg (1,000 unit) capsule omeprazole 20 mg capsule,delayed 20 mg PO DAILY 04/08/23 05/24/24 History release clonidine HCl 0.2 mg tablet 0.2 mg PO QDAY 11/24/23 05/24/24 History metoprolol tartrate 25 mg tablet 12.5 mg (1/2 x 25 mg) PO BID #90 01/02/24 05/24/24 Rx tabs gabapentin 100 mg tablet 100 mg PO TID 04/03/24 05/24/24 History Is last menstrual period known: No Post menopausal: Yes Patient : No : No [facility] Medical History (Updated 05/24/24 @ 15:[address] Taryn Lee MD) Supraventricular tachycardia Hypertension Vestibular disorder ( 09/30/23) Diastolic dysfunction without heart failure Epilepsy Carotid stenosis Neuropathy MELA (obstructive sleep apnea) Unsteadiness Dizziness Generalized convulsive epilepsy BPPV (benign paroxysmal positional vertigo) Dysphagia Hyponatremia Postmenopausal bleeding Other acute postprocedural pain Excessive bleeding Wears glasses Cancer Arthritis Back pain Left carpal tunnel syndrome Climacteric Vaginal atrophy GERD (gastroesophageal reflux disease) Migraine GERD (gastroesophageal reflux disease) Hyperlipidemia Seizure Sleep apnea Oral lichen planus Surgical History H/O hand surgery S/P cataract extraction History of dilation and curettage History of laminectomy History of Achilles tendon repair History of vein stripping History of tubal ligation History of tonsillectomy History of bilateral hip replacements Family History Mother Heart disease Hypertension CAD (coronary artery disease) Brother AAA (abdominal aortic aneurysm, ruptured) Sister AAA (abdominal aortic aneurysm, ruptured) Social History current occupational status: retired Smoking Status: Never smoker alcohol intake: never substance use type: does not use caffeine: Yes Type: carbonated beverages what type of physical activity do you participate in: walking seatbelt use: always do you feel safe at home: Yes additional social history: Ronnie- Both are retired History 3 Elective abortions Hx Para 2 Spontaneous abortions Hx # Term Pregnancies Ectopic pregnancies Hx # Pregnancies Multiple births # of living children Past Pregnancies Del. Date Name GA/Weeks Outcome Route Bth Weight Infant Gen Labor Lgth Anesthesia Del Locatn Provider FOB Unknown 1963 Cheryl Unknown 1965 Olga Lidia HPI Encounter for routine gynecological examination Details: KATRINA MANCINI is a 83 year old who presents for annual exam. still having hot flashes discussed relizen samples given Last PAP: (more content not included)... Normal [facility] Hips B/L min 2 views w/ Pelv edilson 05-15-2024 Hips B/L min 2 views w/ Pelvis [facility] [address] [place] [address] Hips B/L min 2 views w/ Pelvis MR#: [id number] Acct: [id number] Name: KATRINA MANCINI Rep #: [id number] : 1940 F 83 From: Bharat Greene MD PCP: Dr. Magalys Mcclure MD Status: REG CLI Study: Hips B/L min 2 views w/ Pelvis Date of Exam: 1 07/16/23 Exam# [id number] Ordering Dr: Magalys Mcclure MD [id number] INDICATION: pain EXAMINATION/TECHNIQUE: X-RAY - XR Hips Bilateral with Pelvis when performed; 5 views obtained COMPARISON: Prior study dated: 02/01/2023 FINDINGS: Age consistent SI joint arthrosis noted. Both hip joints have been previously replaced. Components demonstrate anatomic alignment. No plain film evidence of hardware complication, failure, or acute traumatic abnormality, no interval change noted since the previous study. No demonstrated fracture or suspicious osseous lesion within the pelvis. Persistent evidence of osteitis pubis. Retained stool in the colon RAD/Hips B/L min 2 views w/ Pelvis IMPRESSION: Bilateral hip replacements demonstrate anatomic alignment with no plain film evidence of hardware complication, failure, or acute traumatic injury. No significant interval change since the previous study. Electronically Signed: Nii Greene MD at 18:40 EST , CC: Dr. Magalys Mcclure MD Reference Services Head: Signed Normal [facility] Knee 3 Viewson 05-15-2024 Knee 3 Views [facility] [address] [place] [address] [id number] Knee 3 Views MR#: [id number] Acct: [id number] Name: KATRINA MANCINI Rep #: [id number] : 1940 F 83 From: Farhad Hooker MD PCP: Dr. Magalys Mcclure MD Status: REG CL Study: Knee 3 Views Date of Exam: 05/15/24 Exam# [id number] Ordering Dr: Magalys Mcclure MD [id number] EXAM: XR Knee 3 Views INDICATION: Female, 83 years old. Left knee pain TECHNIQUE: AP, lateral, and tangential patellar views COMPARISON: None FINDINGS: BONES: No acute fracture. No lytic or blastic lesion. JOINTS: Joints are in normal alignment. There is mild degenerative change of all 3 compartments of the knee. Chondrocalcinosis is noted within the lateral compartment.. No periarticular inflammatory change. No knee joint effusion. SOFT TISSUES: No soft tissue abnormality. RAD/Knee 3 Views IMPRESSION: No acute abnormality of the left knee Electronically Signed: Farhad Hooker MD at 1:02 EST , CC: Dr. Magalys Mcclure MD Reference Services Head: Signed Normal [facility] Knee 3 Views [facility] [address] [place] [address] Knee 3 Views MR#: [id number] Acct: [id number] Name: KATRINA MANCINI Rep #: [id number] : 1940 F 83 From: Farhad Hooker MD PCP: Dr. Magalys Mcclure MD Status: [facility] Study: Knee 3 Views Date of Exam: 05/15/24 Exam# [id number] Ordering Dr: Magalys Mcclure MD [id number] EXAM: XR Knee 3 Views INDICATION: Female, 83 years old. Knee pain TECHNIQUE: AP, lateral, and tangential patellar views COMPARISON: None FINDINGS: BONES: No acute fracture. No lytic or blastic lesion. JOINTS: Joints are in normal alignment. There is mild degenerative change of all 3 compartments of the knee. No periarticular inflammatory change. There is no knee joint effusion.. SOFT TISSUES: No soft tissue abnormality. RAD/Knee 3 Views IMPRESSION: No acute abnormality of the right knee Electronically Signed: Farhad Hooker MD at 1:01 EST , CC: Dr. Magalys Mcclure MD Reference Services Head: Signed Normal [facility] Basic Metabolic Profile (BMP )on 04-27-2024 BUN/CRE 20.4 RATIO High 10-20 [facility] Comment on above: Order Comment: Order Date: 04/27/24 Order Info: 0667 - BMP Performed By: #### L 500.2500 #### [facility] [address] [place], [address] CA,Total 9.3 mg/dL Normal 8.5-10.1 [facility] Comment on above: Order Comment: Order Date: 04/27/24 Order Info: 666-06 - BMP Performed By: #### L 500.2500 #### [facility] [address] [place], [address] Chloride [Moles/Vol] 99 mmol/L Normal 98-107 [facility] Comment on above: Order Comment: Order Date: 04/27/24 Order Info: 666-06 - BMP Performed By: #### L 500.2500 #### [facility] [address] [place], [address] CO2 [Moles/Vol] 30.0 mmol/L Normal 21.0-32.0 [facility] Comment on above: Order Comment: Order Date: 04/27/24 Order Info: 06 - BMP Performed By: #### L 500.2500 #### [facility] [address] [place], [address] Creatinine [Mass/Vol] 0.88 mg/dL Normal 0.55-1.02 [facility] Comment on above: Order Comment: Order Date: 04/27/24 Order Info: 0667- - BMP Result Comment: The validity of the calculated GFR GFRAA in patients over 70 years has not been determined. Clinical correlation is essential. Performed By: #### L 500.2500 #### [facility] [address] [place], [address] EST GFR - AA 78 mL/min Normal >60 [facility] Comment on above: Order Comment: Order Date: 04/27/24 Order Info: 666-06 - BMP Result Comment: Afri can Cypriot GFR Calc Performed By: #### L 500.2500 #### [facility] [address] [place], [address] GAP 5 Normal 5-15 [facility] Comment on above: Order Comment: Order Date: 04/27/24 Order Info: 666-06 - BMP Performed By: #### L 500.2500 #### [facility] [address] [place], [address] GFR/1.73 sq M.predicted among non-blacks MDRD (S/P/Bld) [Vol rate/Area] 65 mL/min/{1.73_m2} Normal >60 [facility] Comment on above: Order Comment: Order Date: 04/27/24 Order Info: 666-06 - BMP Result Comment: Non- GFR Calc Performed By: #### L 500.2500 #### [facility] [address] [place], [place], [address] (618 Glucose [Mass/Vol] 114 mg/dL High 74-106 [facility] Comment on above: Order Comment: Order Date: 04/27/24 Order Info: 666-06 - BMP Result Comment: Fast ing Glucose result from 100 to 125 mg/dL suggests IMPAIRED HOMEOSTASIS per A.D.A. criteria. Performed By: #### L 500.2500 #### [facility] [address] [place], [address] Potassium [Moles/Vol] 4.2 mmol/L Normal 3.5-5.1 [facility] Comment on above: Order Comment: Order Date: 04/27/24 Order Info: 666-06 - BMP Performed By: #### L 500.2500 #### [facility] [address] [place], [address] Sodium [Moles/Vol] 134 mmol/L Low 136-145 [facility] Comment on above: Order Comment: Order Date: 04/27/24 Order Info: 666-06 - BMP Performed By: #### L 500.2500 #### [facility] [address] [place], [place], [address] Urea nitrogen [Mass/Vol] 18 mg/dL Normal 7-18 [facility] Comment on above: Order Comment: Order Date: 04/27/24 Order Info: 0667-1 - BMP Performed By: #### L 500.2500 #### [facility] [address] [place], [place], [address] Spine Lumbar (Routine)on Spine Lumbar (Routine) [facility] [address] [place] [place] [address] Spine Lumbar (Routine) MR#: [id number] Acct: [id number] Name: KATRINA MANCINI Rep #: [id number] : 1940 F 83 From: Kimberly marie MD PCP: Dr. Magalys Mcclure MD Status: REG CLI Study: Spine Lumbar (Routine) Date of Exam: 04/11/24 Exam# [id number] Ordering Dr: Aldo Beavers MD [id number] HISTORY: POST LAMINECTOMY SYNDROME, pain radiates into legs bilaterally L greater than R. TECHNIQUE: Multiplanar and multisequence MR images of the lumbar spine were obtained without intravenous contrast. 175 images. COMPARISON: CT 02/02/2023. FINDINGS: VERTEBRAE: Vertebral body heights maintained. Degenerative bone endplate changes at multiple levels, particularly T12-L1 and L3-4. ALIGNMENT: Mild S-shaped scoliosis. Mild anterolisthesis of L3-4 and L4-5. CONUS: Normal morphology and position of the conus medullaris at L1. INTERVERTEBRAL DISCS: T12-L1: Moderate disc bulge with facet arthropathy resulting in moderate central canal stenosis and right greater than left foraminal narrowing based on the sagittal images. L1-2: Moderate disc bulge with facet arthropathy resulting in moderate central canal stenosis and bilateral foraminal narrowing. L2-3: Large disc bulge with superimposed left paracentral disc protrusion and facet arthropathy resulting in markedly severe central canal stenosis, left L3 nerve root impingement, and moderate bilateral foraminal narrowing. L3-4: Moderate posterior disc bulge osteophyte complex with facet arthropathy resulting in moderate central canal stenosis and bilateral foraminal narrowing with left L3 nerve root impingement. L4-5: Decompressive laminectomy. Residual degenerative change with osteophytes. No significant central canal stenosis. Very mild left foraminal narrowing. L5-S1: Diffuse disc bulge with facet arthropathy resulting in moderate central canal stenosis and mild-moderate bilateral foraminal narrowing. SOFT TISSUES: No paraspinal fluid collection. Mild posterior soft tissue edema. MRI/Spine Lumbar (Routine) IMPRESSION: Large disc bulge and left paracentral disc protrusion at L2-3 resulting in markedly severe spinal canal stenosis, left nerve root impingement, and moderate bilateral foraminal narrowing. Moderate multilevel degenerative disc disease at the other levels as above. L4-5 postoperative change. Electronically Signed: Kimberly Samaniego MD at 10:09 EDT Reading Location ID and State: [facility] / [place] Tel , Service support , CC: Dr. Aldo Beavers MD; Dr. Magalys Mcclure MD Reference Services Head: Signed Normal [facility] PAP IG HPV APTIMA 16/18,45on 04-10-2024 ADEQ Comment Normal . [facility] Comment on above: Order Comment: Speci men Comment: [id number] Specimen Comment: Source.............Cervix;Endocervix Specimen Comment: Other..............Post Menopausal Specimen Comment: No. of containers..01 ThinPrep Vial Result Comment: Sati sfactory for evaluation. Endocervical and/or squamous metaplastic cells (endocervical component) are present. Performed By: #### L 7400.0280 #### [facility] [address] [place], [place], [id number] COMM . Normal . [facility] Comment on above: Order Comment: Speci men Comment: [id number] Specimen Comment: Source.............Cervix;Endocervix Specimen Comment: Other..............Post Menopausal Specimen Comment: No. of containers..01 ThinPrep Vial Performed By: #### L 7400.0280 #### [facility] [address] [place], [place], [id number] COMMENT Comment Normal . [facility] Comment on above: Order Comment: Speci men Comment: [id number] Specimen Comment: Source.............Cervix;Endocervix Specimen Comment: Other..............Post Menopausal Specimen Comment: No. of containers..01 ThinPrep Vial Result Comment: This liquid based ThinPrep(R) pap test was screened with the use of an image guided system. Performed By: #### L 7400.0280 #### [facility] [address] [place], [place], [id number] DIAG Comment Normal . [facility] Comment on above: Order Comment: Speci men Comment: [id number] Specimen Comment: Source.............Cervix;Endocervix Specimen Comment: Other..............Post Menopausal Specimen Comment: No. of containers..01 ThinPrep Vial Result Comment: NEGA TIVE FOR INTRAEPITHELIAL LESION OR MALIGNANCY. CELLULAR CHANGES ASSOCIATED WITH INFLAMMATION ARE PRESENT. Performed By: #### L 7400.0280 #### [facility] [address] [place], [address] HPV APTIMA, HR Negative Normal Negative [facility] Comment on above: Order Comment: Speci men Comment: [id number] Specimen Comment: Source.............Cervix;Endocervix Specimen Comment: Other..............Post Menopausal Specimen Comment: No. of containers..01 ThinPrep Vial Result Comment: This nucleic acid amplification test detects fourteen high- risk HPV types (16,18,31,33,35,39,45,51,52,56,58,59,66,68) without differentiation. Performed By: #### L 7400.0280 #### [facility] [address] [place], [place], [id number] HPV Richelle Rfx Comment Normal . [facility] Comment on above: Order Comment: Speci men Comment: [id number] Specimen Comment: Source.............Cervix;Endocervix Specimen Comment: Other..............Post Menopausal Specimen Comment: No. of containers..01 ThinPrep Vial Result Comment: Crit erdamian not met, HPV Genotype not performed. Performed at: - [facility] [id number] Wood Treating Inspector: Jenny Kenyon MD, Phone: [phone] Performed at: = - [facility] [id number] Wood Treating Inspector: Jenny Kenyon MD, Phone: [phone] Performed By: #### L 7400.0280 #### [facility] [address] [facility] [place], [place], [id number] PAPSMR Comment Normal . [facility] Comment on above: Order Comment: Speci men Comment: [id number] Specimen Comment: Source.............Cervix;Endocervix Specimen Comment: Other..............Post Menopausal Specimen Comment: No. of containers..01 ThinPrep Vial Result Comment: The Pap smear is a screening test designed to aid in the detection of premalignant and malignant conditions of the uterine cervix. It is not a diagnostic procedure and should not be used as the sole means of detecting cervical cancer. Both false-positive and false-negative reports do occur. Performed By: #### L 7400.0280 #### [facility] [address] [place], [address] PERFORM Comment Normal . [facility] Comment on above: Order Comment: Speci men Comment: [id number] Specimen Comment: Source.............Cervix;Endocervix Specimen Comment: Other..............Post Menopausal Specimen Comment: No. of containers..01 ThinPrep Vial Result Comment: Inés Arita Inspecting Supervisor (ASCP) Performed By: #### L 7400.0280 #### [facility] [address] [place], [place], [address] Sap Project Manager Office Visit Reporton 04-03-2024 Sap Project Manager Office Visit Report [facility] [address], [address] [place] [address] OFFICE VISIT Date of Service: 04/03/24 MR#: [id number] Acct: [id number] Name: KATRINA MANCINI Rep #: [id number] : 1940 Provider: Dr. Taryn anderson MD Age/Sex: 83/F Location[place] [facility] [place]: Signed Intake Vital Signs 09/30/23 10:38 11/24/23 12:55 04/03/24 14:56 04/03/24 15:06 Height 5 ft 3 in 5 ft 3 in 5 ft 3 in 5 ft 3 in Weight: 135 lb BMI 23.9 BP 128/69 H Intake Visit Reasons: EMB Dipper And Baker Required: No Is patient in pain?: No Allergies codeine Adverse Reaction (Mild, Verified 04/03/24 15:00) Vomiting meperidine HCl (From Demerol) Adverse Reaction (Mild, Verified 04/03/24 15:00) Nausea morphine Adverse Reaction (Mild, Verified 04/03/24 15:00) Vomiting ofloxacin (From Floxin) Adverse Reaction (Mild, Verified 04/03/24 15:00) Other sulfamethoxazole (From Bactrim) Adverse Reaction (Mild, Verified 04/03/24 15:00) Nausea sumatriptan (From Imitrex) Adverse Reaction (Mild, Verified 04/03/24 15:00) Other sumatriptan succinate (From Imitrex) Adverse Reaction (Mild, Verified 04/03/24 15:00) Other trimethoprim (From Bactrim) Adverse Reaction (Mild, Verified 04/03/24 15:00) Nausea Medications ???Medication ???Instructions ???Recorded ???Confirmed ???Type carbamazepine 200 mg tablet 100 mg PO DAILY 06/16/17 04/03/24 History (Tegretol) multivitamin 1 cap PO QDAY 06/16/17 04/03/24 History rosuvastatin 10 mg tablet (Crestor) 10 mg PO QDAY 06/16/17 04/03/24 History verapamil 240 mg 24 hr 240 mg PO QDAY 06/16/17 04/03/24 History capsule,extended release (Verelan) carbamazepine 300 mg 300 mg PO QHS 01/15/22 04/03/24 History capsule,extended release [id number] acetaminophen 325 mg tablet 650 mg PO DAILY 04/08/23 04/03/24 History (Tylenol) calcium carbonate 600 mg PO DAILY 04/08/23 04/03/24 History cholecalciferol (vitamin D3) 25 1,000 unit PO DAILY 04/08/23 04/03/24 History mcg (1,000 unit) capsule omeprazole 20 mg capsule,delayed 20 mg PO DAILY 04/08/23 04/03/24 History release clonidine HCl 0.2 mg tablet 0.2 mg PO QDAY 11/24/23 04/03/24 History metoprolol tartrate 25 mg tablet 12.5 mg (1/2 x 25 mg) PO BID #90 01/02/24 04/03/24 Rx tabs gabapentin 100 mg tablet 100 mg PO TID 04/03/24 04/03/24 History Is last menstrual period known: No Post menopausal: Yes Patient : No : No PFSH PFSH Medical History Supraventricular tachycardia Hypertension Vestibular disorder ( 09/30/23) Diastolic dysfunction without heart failure Epilepsy Carotid stenosis Neuropathy MELA (obstructive sleep apnea) Unsteadiness Dizziness Generalized convulsive epilepsy BPPV (benign paroxysmal positional vertigo) Dysphagia Hyponatremia Postmenopausal bleeding Other acute postprocedural pain Excessive bleeding Wears glasses Cancer Arthritis Back pain Left carpal tunnel syndrome Climacteric Vaginal atrophy GERD (gastroesophageal reflux disease) Migraine GERD (gastroesophageal reflux disease) Hyperlipidemia Seizure Sleep apnea Oral lichen planus Surgical History H/O hand surgery S/P cataract extraction History of dilation and curettage History of laminectomy History of Achilles tendon repair History of vein stripping History of tubal ligation History of tonsillectomy History of bilateral hip replacements Family History Mother Heart disease Hypertension CAD (coronary artery disease) Brother AAA (abdominal aortic aneurysm, ruptured) Sister AAA (abdominal aortic aneurysm, ruptured) Social History (Updated 04/03/24 @ 15:05 by Ana Rodriguez) current occupational status: retired Smoking Status: Never smoker alcohol intake: never substance use type: does not use caffeine: Yes Type: carbonated beverages what type of physical activity do you participate in: walking seatbelt use: always do you feel safe at home: Yes additional social history: Andreas Ho are retired History 3 Elective abortions Hx Para 2 Spontaneous abortions Hx # Term Pregnancies Ectopic pregnancies Hx # Pregnancies Multiple births # of living children Past Pregnancies Del. Date Name GA/Weeks Outcome Route Bth Weight Gen Labor Lgth Anesthesia Del Locatn Provider FOB Unknown 1965 Cheryl Unknown 1965 Olga Lidia HPI EMB Details: KATRINA MANCINI is a 83 year old who presents for follow up of endometrial hyperplasia. she denies any bleeding or abnormal discharge, was on HRT and not taking progesterone as prescribed, and then did take therapy after hyperplasia develope (more content not included)... Normal [facility] Surgery Specimen Level Adrian 04-03-2024 Surgery Specimen Level IV ---- Patient Age/Sex Location Account Attending Physician ---- KATRINA MANCINI 83/F [facility] [id number] Dr. Taryn Lee MD ---- Specimen: [id number] Received: 04/03/24 Status: JUAN M Menezes Num: [id number] Spec Type: ENDOM BX/C Nabil Dr: Dr. Taryn Lee MD HEADER OPERATION: Endometrial biopsy PRE-OP DIAGNOSIS: Endometrial hyperplasia TISSUE SUBMITTED: Endometrial tissue ---- MICROSCOPIC DIAGNOSIS Endometrial biopsy: Scant strips of benign endometrial epithelium. Scant fragments of benign ecto- and endocervical epithelium and mucous. See comment. Keo 04/05/2024 COMMENT The specimen predominantly consists of mucoid tissue. Clinical correlation and appropriate follow-up are necessary. MICROSCOPIC DESCRIPTION Slides are reviewed. GROSS DESCRIPTION Received is one container labeled with the patient's name and not further designated. The specimen consists of multiple irregular fragments of smith mucoid tissue that in aggregate measure 1.5 x 1.0 x 0.1 cm. The specimen is totally submitted in one cassette. 04/04/2024 TC:4 CPT:07114 ---- Patient Age/Sex Location Account Attending Physician ---- KATRINA MANCINI 83/F [facility] [id number] Dr. Taryn Lee MD ---- Signed (signature on file) Dr. Ward Harrell MD 04/05/24 1328 ---- Normal [facility] Comment on above: Performed By: #### P SUIV #### [facility] [place], [address] Basic Metabolic Profile (BMP )on 03-05-2024 BUN/CRE 18.4 RATIO Normal 10- [facility] Comment on above: Performed By: #### L 500.2500 ####[facility] [address] [place], [address] CA,Total 9.9 mg/dL Normal 8.5-10.1 [facility] Comment on above: Performed By: #### L 500.2500 ####[facility] [address] [place], [address] Chloride [Moles/Vol] 99 mmol/L Normal 98-107 [facility] Comment on above: Performed By: #### L 500.2500 ####[facility] [address] [place], [address] CO2 [Moles/Vol] 31.0 mmol/L Normal 21.0-32.0 [facility] Comment on above: Performed By: #### L 500.2500 ####[facility] [address] [place], [address] Creatinine [Mass/Vol] 0.93 mg/dL Normal 0.55-1.02 [facility] Comment on above: Result Comment: The validity of the calculated GFR GFRAA in patients over 70 years has not been determined. Clinical correlation is essential. Performed By: #### L 500.2500 ####[facility] [address] [place], [address] EST GFR - AA 74 mL/min Normal >60 [facility] Comment on above: Result Comment: Afri can Cypriot GFR Calc Performed By: #### L 500.2500 ####[facility] [address] [place], [address] GAP 4 Low 5-15 [facility] Comment on above: Performed By: #### L 500.2500 ####[facility] [address] [place], [address] GFR/1.73 sq M.predicted among non-blacks MDRD (S/P/Bld) [Vol rate/Area] 61 mL/min/{1.73_m2} Normal >60 [facility] Comment on above: Result Comment: Non- GFR Calc Performed By: #### L 500.2500 ####[facility] [address] [place], [address] Glucose [Mass/Vol] 126 mg/dL High 74-106 [facility] Comment on above: Result Comment: Fast ing Glucose result greater than or equal to 126 mg/dL suggests DIABETES MELLITUS per A.D.A. criteria. Performed By: #### L 500.2500 ####[facility] [address] [place], [address] Potassium [Moles/Vol] 3.9 mmol/L Normal 3.5-5.1 [facility] Comment on above: Performed By: #### L 500.2500 ####[facility] [address] [place], [address] Sodium [Moles/Vol] 134 mmol/L Low 136-145 [facility] Comment on above: Performed By: #### L 500.2500 ####[facility] [address] [place], [address] Urea nitrogen [Mass/Vol] 17 mg/dL Normal 7-18 [facility] Comment on above: Performed By: #### L 500.2500 ####[facility] [address] [place], [address] carBAMazepine free SerPl-mCn con 03-05-2024 carBAMazepine free [Mass/Vol] 2.4 ug/mL Normal 0.8-2.4 [facility] Comment on above: Order Comment: Speci men Type: BLOOD SPECIMENOrdering Facility: [facility] Address: [address] [place] [address] Result Comment: Refe rence ranges and high/low indicator flags are provided as general guidelines only. The treating physician must determine appropriate target levels/dosing based on the specific clinical situation. This test was developed, and its performance characteristics determined by the [facility] Department of Pathology and Laboratory Medicine. It has not been cleared or approved by the FDA. The [facility] Department of Pathology and Laboratory Medicine is regulated under CLIA as qualified to perform high-complexity testing. This test is used for clinical purposes. It should not be regarded as investigational or for research. Performed By: #### 3 433-0 ####[facility] LABCLIA [id number] [address] CNOVon 03-02-2024 CNOV Office Visit (NEMOWS ) KATRINA MANCINI ([id number]) 1940 F Date Time Provider Department 03/02/24 3:20 PM AB SHAFFER JR During your visit today, we recorded the following information about you: Pulse Blood pressure Weight 61/minute 124/71 58.6 kg Ab Shaffer Jr., MD 03/02/2024 6:36 PM Signed ESTABLISHED PATIENT VISIT CHIEF COMPLAINT: Follow Up HISTORY OF PRESENT ILLNESS: Katrina Mancini is a 83 year old female, BMI 22.53 kg/m2 with a PMH significant for and per last office visit of 08/01/23: 1. Dizziness - ICD9: 780.4, ICD10: R42 (primary diagnosis) Resolved with vestibular therapy. Pt did not complete tilt table but asx. Following with cardiology for SVT. At this time no additional testing or treatment needed. Encouraged pt to follow instructions of therapies if symptoms were to return. 2. 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 Years since last seizure (see prior notes). Concern that hyponatremia reported by pt (now resolved) possibly due to Tegretol, although no changes in dosing for years with no prior issues. Advised pt to update us on next Na level. If hyponatremic again, should at least consider lowering Tegretol dose given high therapeutic level. May also consider transitioning to alternative ASM. 3. MELA (obstructive sleep apnea) - ICD9: 327.23, ICD10: G47.33 Asx with use of dental appliance. No change in therapy and no need for further testing at this time. 4. Migraine without aura and without status migrainosus, not intractable - ICD9: 346.10, ICD10: G43.009 Asx while take verapamil. BPs stable. Last Na level on record was from 2022 - . Pt reports no dizziness since last visit. 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 D/w pt possible need for antidepressant - states tried through PCP, but cause Na to drop. More recent Na was 135. Pt remains complaint with Tegretol. On Ca/Vit D supplements. No seizures. No dizziness. No migraines (remains on Verapamil and pt states never wants to stop it). Patient using dental appliance. Sleep fragmented due to stress of 's health. She feels it is improving as recovering. REVIEW OF SYSTEMS GENERAL:No weight loss, malaise [...] SKIN:Negative for lesions, rash, and itching. PSYCHIATRIC: See HPI. LAB/IMAGING: Those performed since patient's last visit have been reviewed. WBC (k/uL) Date Value 02/21/2023 5.85 RBC (m/uL) Date Value 02/21/2023 4.16 Hemoglobin (g/dL) Date Value 02/21/2023 14.4 Hematocrit (%) Date Value 02/21/2023 40.6 MCV (fL) Date Value 02/21/2023 97.6 MCH (pg) Date Value 02/21/2023 34.6 (H) MCHC (g/dL) Date Value 02/21/2023 35.5 RDW-CV (%) Date Value 02/21/2023 11.6 Platelet Count (k/uL) Date Value 02/21/2023 289 MPV (fL) Date Value 02/21/2023 9.0 Glucose (mg/dL) Date Value 02/21/2023 85 BUN (mg/dL) Date Value 02/21/2023 13 Creatinine (mg/dL) Date Value 02/21/2023 0.66 Sodium (mmol/L) Date Value 02/21/2023 131 (L) Potassium (mmol/L) Date Value 02/21/2023 4.5 Chloride (mmol/L) Date Value 02/21/2023 92 (L) CO2 (mmol/L) Date Value 02/21/2023 25 Protein, Total (g/dL) Date Value 02/21/2023 6.9 Albumin (g/dL) Date Value 02/21/2023 4.7 Calcium, Total (mg/dL) Date Value 02/21/2023 9.7 Alkaline Phosphatase (U/L) Date Value 02/21/2023 60 Bilirubin, Total (mg/dL) Date Value 02/21/2023 0.2 AST (U/L) Date Value 02/21/2023 21 ALT (U/L) Date Value 02/21/2023 17 MEDICATIONS: metoprolol tartrate, short acting, (LOPRESSOR) 25 mg tabletTake 12.5 mg by mouth two times a day.Disp: Rfl: cloNIDine HCl (CATAPRES) 0.2 mg tabletTake 0.2 mg by mouth two times a day.Disp: Rfl: carBAMazepine (TEGRETOL) 200 mg tabletTAKE 1/2 TABLET BY MOUTH IN THE MORNING AND 1.5 TABLETS IN THE EVENINGDisp: 180 tabletRfl: 1 verapamil SR (CALAN SR) 240 mg CR tablettake 1 tablet by mouth every dayDisp: 90 tabletRfl: 1 progesterone ingrid (more content not included)... Normal [facility] Basic Metabolic Profile (BMP )on 02-24-2024 BUN/CRE 20.9 RATIO High 10-20 [facility] Comment on above: Order Comment: Order Date: 02/17/24 Order Info: 666-06 - BMP Performed By: #### L 500.2500 #### [facility] [address] [place], [address] CA,Total 9.3 mg/dL Normal 8.5-10.1 [facility] Comment on above: Order Comment: Order Date: 02/17/24 Order Info: 666-06 - BMP Performed By: #### L 500.2500 #### [facility] [address] [place], [address] Chloride [Moles/Vol] 97 mmol/L Low 98-107 [facility] Comment on above: Order Comment: Order Date: 02/17/24 Order Info: 666-06 - BMP Performed By: #### L 500.2500 #### [facility] [address] [place], [address] CO2 [Moles/Vol] 29.0 mmol/L Normal 21.0-32.0 [facility] Comment on above: Order Comment: Order Date: 02/17/24 Order Info: 666-06 - BMP Performed By: #### L 500.2500 #### [facility] [address] [place], [address] Creatinine [Mass/Vol] 0.81 mg/dL Normal 0.55-1.02 [facility] Comment on above: Order Comment: Order Date: 02/17/24 Order Info: 666-06 - BMP Result Comment: The validity of the calculated GFR GFRAA in patients over 70 years has not been determined. Clinical correlation is essential. Performed By: #### L 500.2500 #### [facility] [address] [place], [address] EST GFR - AA 86 mL/min Normal >60 [facility] Comment on above: Order Comment: Order Date: 02/17/24 Order Info: 0667 - BMP Result Comment: Afri can Cypriot GFR Calc Performed By: #### L 500.2500 #### [facility] [address] [place], [address] GAP 6 Normal 5-15 [facility] Comment on above: Order Comment: Order Date: 02/17/24 Order Info: 666-06 - BMP Performed By: #### L 500.2500 #### [facility] [address] [place], [address] GFR/1.73 sq M.predicted among non-blacks MDRD (S/P/Bld) [Vol rate/Area] 71 mL/min/{1.73_m2} Normal >60 [facility] Comment on above: Order Comment: Order Date: 02/17/24 Order Info: 666-06 - BMP Result Comment: Non- GFR Calc Performed By: #### L 500.2500 #### [facility] [address] [place], [address] Glucose [Mass/Vol] 89 mg/dL Normal 74-106 [facility] Comment on above: Order Comment: Order Date: 02/17/24 Order Info: 666-06 - BMP Performed By: #### L 500.2500 #### [facility] [address] [place], [address] Potassium [Moles/Vol] 4.0 mmol/L Normal 3.5-5.1 [facility] Comment on above: Order Comment: Order Date: 02/17/24 Order Info: 666-06 - BMP Performed By: #### L 500.2500 #### [facility] [address] [place], [address] Sodium [Moles/Vol] 132 mmol/L Low 136-145 [facility] Comment on above: Order Comment: Order Date: 02/17/24 Order Info: 666-06 - BMP Performed By: #### L 500.2500 #### [facility] [address] [place], [address] Urea nitrogen [Mass/Vol] 17 mg/dL Normal 7-18 [facility] Comment on above: Order Comment: Order Date: 02/17/24 Order Info: 0667-1 - BMP Performed By: #### L 500.2500 #### [facility] [address] [place], [address] Cardiology Visit Reporton Cardiology Visit Report [facility] [address] [place], [place] [address] OFFICE VISIT Date of Service: 11/24/23 MR#: [id number] Acct: [id number] Name: KATRINA MANCINI Rep #: [id number] : 1940 Provider: Dr. Samir Forrest MD Age/Sex: 83/F Location: [facility] [place] Status: Signed HPI HPI History of Present Illness Details: This lady with grade 1 diastolic dysfunction is here for follow-up visit. Denies any complaints today. No chest pains or shortness of breath. Denies any ankle edema. No orthopnea or PND. No palpitations. No lightheadedness or dizziness. No syncope or presyncope. Per patient, her unsteady gait has resolved. Intake Vital Signs 09/30/23 10:38 11/24/23 12:55 Height 5 ft 3 in 5 ft 3 in Weight: 136 lb BMI 24.0 BP 110/69 Blood Pressure Location Lt brachial Position Sitting Respiration 16 Pulse 60 Pulse Source Monitor Intake Visit Reasons: 6 M Dipper And Baker Required: No Accompanied by: Self Is patient in pain?: No Allergies codeine Adverse Reaction (Mild, Verified 11/24/23 13:00) Vomiting meperidine HCl (From Demerol) Adverse Reaction (Mild, Verified 11/24/23 13:00) Nausea morphine Adverse Reaction (Mild, Verified 11/24/23 13:00) Vomiting ofloxacin (From Floxin) Adverse Reaction (Mild, Verified 11/24/23 13:00) Other sulfamethoxazole (From Bactrim) Adverse Reaction (Mild, Verified 11/24/23 13:00) Nausea sumatriptan (From Imitrex) Adverse Reaction (Mild, Verified 11/24/23 13:00) Other sumatriptan succinate (From Imitrex) Adverse Reaction (Mild, Verified 11/24/23 13:00) Other trimethoprim (From Bactrim) Adverse Reaction (Mild, Verified 11/24/23 13:00) Nausea Medications ???Medication ???Instructions ???Recorded ???Confirmed ???Type carbamazepine 200 mg tablet 100 mg PO DAILY 06/16/17 11/24/23 History (Tegretol) multivitamin 1 cap PO QDAY 06/16/17 11/24/23 History rosuvastatin 10 mg tablet (Crestor) 10 mg PO QDAY 06/16/17 11/24/23 History verapamil 240 mg 24 hr 240 mg PO QDAY 06/16/17 11/24/23 History capsule,extended release (Verelan) carbamazepine 300 mg 300 mg PO QHS 01/15/22 11/24/23 History capsule,extended release [id number] acetaminophen 325 mg tablet 650 mg PO DAILY 04/08/23 11/24/23 History (Tylenol) calcium carbonate 600 mg PO DAILY 04/08/23 11/24/23 History cholecalciferol (vitamin D3) 25 1,000 unit PO DAILY 04/08/23 11/24/23 History mcg (1,000 unit) capsule hydrocodone-acetaminop hen 5-325mg 1 tab PO BID PRN 04/08/23 11/24/23 History 5mg-325mg omeprazole 20 mg capsule,delayed 20 mg PO DAILY 04/08/23 11/24/23 History release tacrolimus 0.1 % topical ointment 1 applic topical BID PRN oral 04/08/23 11/24/23 History (Protopic) metoprolol tartrate 25 mg tablet 12.5 mg (1/2 x 25 mg) PO BID #90 04/14/23 11/24/23 Rx tabs clonidine HCl 0.2 mg tablet 0.2 mg PO QDAY 11/24/23 11/24/23 History Ejection fraction %: 64 PFSH Medical History Supraventricular tachycardia Hypertension Vestibular disorder ( 09/30/23) Diastolic dysfunction without heart failure Epilepsy Carotid stenosis Neuropathy MELA (obstructive sleep apnea) Unsteadiness Dizziness Generalized convulsive epilepsy BPPV (benign paroxysmal positional vertigo) Dysphagia Hyponatremia Postmenopausal bleeding Other acute postprocedural pain Excessive bleeding Wears glasses Cancer Arthritis Back pain Left carpal tunnel syndrome Climacteric Vaginal atrophy GERD (gastroesophageal reflux disease) Migraine GERD (gastroesophageal reflux disease) Hyperlipidemia Seizure Sleep apnea Oral lichen planus Surgical History H/O hand surgery S/P cataract extraction History of dilation and curettage History of laminectomy History of Achilles tendon repair History of vein stripping History of tubal ligation History of tonsillectomy History of bilateral hip replacements Family History Mother Heart disease Hypertension CAD (coronary artery disease) Brother AAA (abdominal aortic aneurysm, ruptured) Sister AAA (abdominal aortic aneurysm, ruptured) Social History Smoking Status: Never smoker alcohol intake: never substance use type: does not use caffeine: Yes Type: carbonated beverages what type of physical activity do you participate in: walking seatbelt use: always do you feel safe at home: Yes additional social history: Ronnie- Both are retired ROS Const Const: Positive for fatigue, daytime sleepiness and difficulty sleeping; Negative for weakness, headache(s), frequent falls or excessive sweating Eyes Eyes: Negative for loss of peripher (more content not included)... Normal [facility] CBC W/Diff, Automatedon 05-2 Absolute Lymph 1.34 X10 3/uL Normal 0.83-4.51 [facility] Comment on above: Order Comment: Order Date: 11/09/23 Order Info: 0184-1 - CBCD Performed By: #### L 500.4100, L500.4050, L506.1000, L100.0100 #### [facility] [address] [place], [address] Absolute Neut 4.8 X10 3/uL Normal 2.0-7.7 [facility] Comment on above: Order Comment: Order Date: 11/09/23 Order Info: 0184-1 - CBCD Performed By: #### L 500.4100, L500.4050, L506.1000, L100.0100 #### [facility] [address] [place], [address] Basophils/100 WBC (Bld) 0.6 % Normal 0-1 [facility] Comment on above: Order Comment: Order Date: 11/09/23 Order Info: 0184-1 - CBCD Performed By: #### L 500.4100, L500.4050, L506.1000, L100.0100 #### [facility] [address] [place], [address] Eosinophils/100 WBC (Bld) 2.6 % Normal 0-5 [facility] Comment on above: Order Comment: Order Date: 11/09/23 Order Info: 018- - CBCD Performed By: #### L 500.4100, L500.4050, L506.1000, L100.0100 #### [facility] [address] [place], [address] Erythrocyte distribution width (RBC) [Ratio] 11.3 % Low 11.6-14.6 [facility] Comment on above: Order Comment: Order Date: 11/09/23 Order Info: 018- - CBCD Performed By: #### L 500.4100, L500.4050, L506.1000, L100.0100 #### [facility] [address] [place], [address] Hematocrit (Bld) [Volume fraction] 38.3 % Normal 37-47 [facility] Comment on above: Order Comment: Order Date: 11/09/23 Order Info: [id number] - CBCD Performed By: #### L 500.4100, L500.4050, L506.1000, L100.0100 #### [facility] [address] [place], [address] Hemoglobin (Bld) [Mass/Vol] 13.2 g/dL Normal 12.0-15.0 [facility] Comment on above: Order Comment: Order Date: 11/09/23 Order Info: 0184- - CBCD Performed By: #### L 500.4100, L500.4050, L506.1000, L100.0100 #### [facility] [address] [place], [address] IG% 0.400 Normal 0.0-0.9 [facility] Comment on above: Order Comment: Order Date: 11/09/23 Order Info: 018- - CBCD Result Comment: IG% - Immature Granulocytes (promyelocytes, myelocytes and metamyelocytes) > 1% indicates that a LEFT SHIFT is Present. Performed By: #### L 500.4100, L500.4050, L506.1000, L100.0100 #### [facility] [address] [place], [address] Lymphocytes/100 WBC (Bld) 19.0 % Normal 19-41 [facility] Comment on above: Order Comment: Order Date: 11/09/23 Order Info: [id number] - CBCD Performed By: #### L 500.4100, L500.4050, L506.1000, L100.0100 #### [facility] [address] [place], [address] MCH (RBC) [Entitic mass] 34.4 pg High 27.0-32.0 [facility] Comment on above: Order Comment: Order Date: 11/09/23 Order Info: 0184- - CBCD Performed By: #### L 500.4100, L500.4050, L506.1000, L100.0100 #### [facility] [address] [place], [address] MCHC (RBC) [Mass/Vol] 34.5 g/dL Normal 32-36 [facility] Comment on above: Order Comment: Order Date: 11/09/23 Order Info: 0184- - CBCD Performed By: #### L 500.4100, L500.4050, L506.1000, L100.0100 #### [facility] [address] [place], [address] MCV (RBC) [Entitic vol] 99.7 fL High 81-99 [facility] Comment on above: Order Comment: Order Date: 11/09/23 Order Info: [id number] - CBCD Performed By: #### L 500.4100, L500.4050, L506.1000, L100.0100 #### [facility] [address] [place], [address] Monocytes/100 WBC (Bld) 9.1 % Normal 0-10 [facility] Comment on above: Order Comment: Order Date: 11/09/23 Order Info: 018- - CBCD Performed By: #### L 500.4100, L500.4050, L506.1000, L100.0100 #### [facility] [address] [place], [address] Neutrophils/100 WBC (Bld) 68.3 % Normal 47-70 [facility] Comment on above: Order Comment: Order Date: 11/09/23 Order Info: 018- - CBCD Performed By: #### L 500.4100, L500.4050, L506.1000, L100.0100 #### [facility] [address] [place], [address] Nucleated RBC (Bld) [#/Vol] 0 10*3/uL Normal 0-5 [facility] Comment on above: Order Comment: Order Date: 11/09/23 Order Info: [id number] - CBCD Performed By: #### L 500.4100, L500.4050, L506.1000, L100.0100 #### [facility] [address] [place], [address] Platelet mean volume (Bld) [Entitic vol] 9.0 fL Normal 6.2-12.0 [facility] Comment on above: Order Comment: Order Date: 11/09/23 Order Info: [id number] - CBCD Performed By: #### L 500.4100, L500.4050, L506.1000, L100.0100 #### [facility] [address] [place], [address] Platelets (Bld) [#/Vol] 298 10*3/uL Normal 150-450 [facility] Comment on above: Order Comment: Order Date: 11/09/23 Order Info: [id number] - CBCD Performed By: #### L 500.4100, L500.4050, L506.1000, L100.0100 #### [facility] [address] [place], [address] RBC (Bld) [#/Vol] 3.84 10*6/uL Low 4.2-5.4 [facility] Comment on above: Order Comment: Order Date: 11/09/23 Order Info: [id number] - CBCD Performed By: #### L 500.4100, L500.4050, L506.1000, L100.0100 #### [facility] [address] [place], [address] RDW SD 40.6 fl Normal 35.1-43.9 [facility] Comment on above: Order Comment: Order Date: 11/09/23 Order Info: [id number] - CBCD Performed By: #### L 500.4100, L500.4050, L506.1000, L100.0100 #### [facility] [address] [place], [address] WBC (Bld) [#/Vol] 7.1 10*3/uL Normal 4.4-11.0 [facility] Comment on above: Order Comment: Order Date: 11/09/23 Order Info: [id number] - CBCD Performed By: #### L 500.4100, L500.4050, L506.1000, L100.0100 #### [facility] [address] [place], [address] Comprehensive Metabolic Prof ilon 11-09-2023 Albumin [Mass/Vol] 3.9 g/dL Normal 3.2-5.0 [facility] Comment on above: Order Comment: Order Date: 11/09/23 Order Info: [id number] - CMP Order Info: [id number] - LIPID Performed By: #### L 500.4100, L500.4050, L506.1000, L100.0100 #### [facility] [address] [place], [address] Albumin/Globulin [Mass ratio] 1.2 {ratio} Normal 0.9-2.4 [facility] Comment on above: Order Comment: Order Date: 11/09/23 Order Info: [id number] - CMP Order Info: [id number] - LIPID Performed By: #### L 500.4100, L500.4050, L506.1000, L100.0100 #### [facility] [address] [place], [address] ALK P 75 U/L Normal 45-117 [facility] Comment on above: Order Comment: Order Date: 11/09/23 Order Info: [id number] - CMP Order Info: [id number] - LIPID Performed By: #### L 500.4100, L500.4050, L506.1000, L100.0100 #### [facility] [address] [place], [address] ALT [Catalytic activity/Vol] 23 U/L Normal 13-56 [facility] Comment on above: Order Comment: Order Date: 11/09/23 Order Info: [id number] - CMP Order Info: [id number] - LIPID Performed By: #### L 500.4100, L500.4050, L506.1000, L100.0100 #### [facility] [address] [place], [address] AST [Catalytic activity/Vol] 23 U/L Normal 15-37 [facility] Comment on above: Order Comment: Order Date: 11/09/23 Order Info: [id number] - CMP Order Info: [id number] - LIPID Performed By: #### L 500.4100, L500.4050, L506.1000, L100.0100 #### [facility] [address] [place], [address] Bilirubin [Mass/Vol] 0.30 mg/dL Normal 0.20-1.00 [facility] Comment on above: Order Comment: Order Date: 11/09/23 Order Info: 0786- - CMP Order Info: [id number] - LIPID Result Comment: For patients on eltrombopag therapy, use of Dimension [place] TBIL is not recommended. Performed By: #### L 500.4100, L500.4050, L506.1000, L100.0100 #### [facility] [address] [place], [address] BUN/CRE 24.5 RATIO High 10-20 [facility] Comment on above: Order Comment: Order Date: 11/09/23 Order Info: 0786- - CMP Order Info: [id number] - LIPID Performed By: #### L 500.4100, L500.4050, L506.1000, L100.0100 #### [facility] [address] [place], [address] CA,Total 9.1 mg/dL Normal 8.5-10.1 [facility] Comment on above: Order Comment: Order Date: 11/09/23 Order Info: [id number] - CMP Order Info: [id number] - LIPID Performed By: #### L 500.4100, L500.4050, L506.1000, L100.0100 #### [facility] [address] [place], [address] Chloride [Moles/Vol] 98 mmol/L Normal 98-107 [facility] Comment on above: Order Comment: Order Date: 11/09/23 Order Info: [id number] - CMP Order Info: [id number] - LIPID Performed By: #### L 500.4100, L500.4050, L506.1000, L100.0100 #### [facility] [address] [place], [address] CO2 [Moles/Vol] 27.0 mmol/L Normal 21.0-32.0 [facility] Comment on above: Order Comment: Order Date: 11/09/23 Order Info: 0786- - CMP Order Info: [id number] - LIPID Performed By: #### L 500.4100, L500.4050, L506.1000, L100.0100 #### [facility] [address] [place], [address] Creatinine [Mass/Vol] 0.86 mg/dL Normal 0.55-1.02 [facility] Comment on above: Order Comment: Order Date: 11/09/23 Order Info: 0786 - CMP Order Info: [id number] - LIPID Result Comment: The validity of the calculated GFR GFRAA in patients over 70 years has not been determined. Clinical correlation is essential. Performed By: #### L 500.4100, L500.4050, L506.1000, L100.0100 #### [facility] [address] [place], [address] EST GFR - AA 81 mL/min Normal >60 [facility] Comment on above: Order Comment: Order Date: 11/09/23 Order Info: 0786- - CMP Order Info: [id number] - LIPID Result Comment: Afri can Cypriot GFR Calc Performed By: #### L 500.4100, L500.4050, L506.1000, L100.0100 #### [facility] [address] [place], [address] GAP 9 Normal 5-15 [facility] Comment on above: Order Comment: Order Date: 11/09/23 Order Info: 0786- - CMP Order Info: [id number] - LIPID Performed By: #### L 500.4100, L500.4050, L506.1000, L100.0100 #### [facility] [address] [place], [address] GFR/1.73 sq M.predicted among non-blacks MDRD (S/P/Bld) [Vol rate/Area] 67 mL/min/{1.73_m2} Normal >60 [facility] Comment on above: Order Comment: Order Date: 11/09/23 Order Info: [id number] - CMP Order Info: [id number] - LIPID Result Comment: Non- GFR Calc Performed By: #### L 500.4100, L500.4050, L506.1000, L100.0100 #### [facility] [address] [place], [address] Globulin (S) [Mass/Vol] 3.2 g/dL Normal 2.2-4.2 [facility] Comment on above: Order Comment: Order Date: 11/09/23 Order Info: [id number] - CMP Order Info: [id number] - LIPID Performed By: #### L 500.4100, L500.4050, L506.1000, L100.0100 #### [facility] [address] [place], [address] Glucose [Mass/Vol] 95 mg/dL Normal 74-106 [facility] Comment on above: Order Comment: Order Date: 11/09/23 Order Info: [id number] - CMP Order Info: [id number] - LIPID Performed By: #### L 500.4100, L500.4050, L506.1000, L100.0100 #### [facility] [address] [place], [address] Potassium [Moles/Vol] 4.2 mmol/L Normal 3.5-5.1 [facility] Comment on above: Order Comment: Order Date: 11/09/23 Order Info: [id number] - CMP Order Info: [id number] - LIPID Performed By: #### L 500.4100, L500.4050, L506.1000, L100.0100 #### [facility] [address] [place], [address] Sodium [Moles/Vol] 134 mmol/L Low 136-145 [facility] Comment on above: Order Comment: Order Date: 11/09/23 Order Info: 0786- - CMP Order Info: [id number] - LIPID Performed By: #### L 500.4100, L500.4050, L506.1000, L100.0100 #### [facility] [address] [place], [address] T PROT 7.1 g/dL Normal 6.4-8.2 [facility] Comment on above: Order Comment: Order Date: 11/09/23 Order Info: 0786 - CMP Order Info: [id number] - LIPID Performed By: #### L 500.4100, L500.4050, L506.1000, L100.0100 #### [facility] [address] [place], [address] Urea nitrogen [Mass/Vol] 21 mg/dL High 7-18 [facility] Comment on above: Order Comment: Order Date: 11/09/23 Order Info: 0786- - CMP Order Info: [id number] - LIPID Performed By: #### L 500.4100, L500.4050, L506.1000, L100.0100 #### [facility] [address] [place], [address] Lipid Profileon 11-09-2023 Cholesterol [Mass/Vol] 180 mg/dL Normal 200 [facility] Comment on above: Order Comment: Order Date: 11/09/23 Order Info: [id number] - CMP Order Info: [id number] - LIPID Result Comment: <200 mg/dL Desirable 200-240 mg/dL Borderline >240 mg/dL High Risk Performed By: #### L 500.4100, L500.4050, L506.1000, L100.0100 #### [facility] [address] [place], [address] Cholesterol in HDL [Mass/Vol] 52 mg/dL Normal [facility] Comment on above: Order Comment: Order Date: 11/09/23 Order Info: [id number] - CMP Order Info: [id number] - LIPID Result Comment: The drugs N-Acetylcysteine and Metamizole may falsely depress this assay. Reference Range HDL <40 mg/dL Low HDL Cholesterol HDL >or= 60 mg/dL High HDL Cholesterol Performed By: #### L 500.4100, L500.4050, L506.1000, L100.0100 #### [facility] [address] [place], [address] Cholesterol in LDL [Mass/Vol] 64 mg/dL Normal 0-130 [facility] Comment on above: Order Comment: Order Date: 11/09/23 Order Info: [id number] - CMP Order Info: [id number] - LIPID Performed By: #### L 500.4100, L500.4050, L506.1000, L100.0100 #### [facility] [address] [place], [address] Cholesterol in VLDL [Mass/Vol] 64 mg/dL High 5-40 [facility] Comment on above: Order Comment: Order Date: 11/09/23 Order Info: [id number] - CMP Order Info: [id number] - LIPID Performed By: #### L 500.4100, L500.4050, L506.1000, L100.0100 #### [facility] [address] [place], [address] Triglyceride [Mass/Vol] 318 mg/dL High [facility] Comment on above: Order Comment: Order Date: 11/09/23 Order Info: [id number] - CMP Order Info: [id number] - LIPID Result Comment: The drugs N-Acetylcysteine and Metamizole may falsely depress this assay. Serum Triglycerides Reference Interval Normal <150 mg/dL Borderline high 150 - 199 mg/dL High 200 - 499 mg/dL Very High > or = 500 mg/dL Performed By: #### L 500.4100, L500.4050, L506.1000, L100.0100 #### [facility] [address] [place], [address] Vitamin D,25 Hydroxyon 11-08 Vitamin D 25-OH 35.7 ng/mL Normal [facility] Comment on above: Order Comment: Order Date: 11/09/23 Order Info: [id number] - [id number] Result Comment: Milagros min D 25(OH) Status Range Deficiency <20 ng/mL (50nmol/L) Insufficiency 20 - 30 ng/mL (50 - 75 nmol/L) Sufficiency 30 - 100 ng/mL (75 - 250 nmol/L) Toxicity >100 ng/mL (>250 nmol/L) Performed By: #### L 500.4100, L500.4050, L506.1000, L100.0100 #### [facility] [address] [place], [address] [employer] Manager Office Visit Reporton 09-30-2023 [employer] Project Manager Office Visit Report [facility] [place] [address] [place] [address] OFFICE VISIT Date of Service: 09/30/23 MR#: [id number] Acct: [id number] Name: KATRNIA MANCINI Rep #: [id number] : 1940 Provider: Dr. 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 Baker Required: No Is patient in pain?: No Allergies codeine Adverse Reaction (Mild, Verified 09/30/23 10:36) Vomiting meperidine HCl [From Demerol] Adverse Reaction (Mild, Verified 09/30/23 10:36) Nausea morphine Adverse Reaction (Mild, Verified 09/30/23 10:36) Vomiting ofloxacin [From Floxin] Adverse Reaction (Mild, Verified 09/30/23 10:36) Other sulfamethoxazole [From Bactrim] Adverse Reaction (Mild, Verified 09/30/23 10:36) Nausea sumatriptan [From Imitrex] Adverse Reaction (Mild, Verified 09/30/23 10:36) Other sumatriptan succinate [From Imitrex] Adverse Reaction (Mild, Verified 09/30/23 10:36) Other trimethoprim [From Bactrim] Adverse Reaction (Mild, Verified 09/30/23 10:36) Nausea Medications carbamazepine 200 mg tablet (Tegretol) 100 mg PO DAILY 06/16/17 [History Confirmed 09/30/23] meloxicam 15 mg tablet 15 mg PO QDAY 06/16/17 [History Confirmed 09/30/23] multivitamin 1 cap PO QDAY 06/16/17 [History Confirmed 09/30/23] rosuvastatin 10 mg tablet (Crestor) 10 mg PO QDAY 06/16/17 [History Confirmed 09/30/23] verapamil 240 mg 24 hr capsule,extended release (Verelan) 240 mg PO QDAY 06/16/17 [History Confirmed 09/30/23] carbamazepine 300 mg capsule,extended release [id number] 300 mg PO QHS 01/15/22 [History Confirmed 09/30/23] acetaminophen 325 mg tablet (Tylenol) 650 mg PO DAILY 04/08/23 [History Confirmed 09/30/23] calcium carbonate 600 mg PO DAILY 04/08/23 [History Confirmed 09/30/23] cholecalciferol (vitamin D3) 25 mcg (1,000 unit) capsule 1,000 unit PO DAILY 04/08/23 [History Confirmed 09/30/23] fluticasone propionate 50 mcg/actuation nasal spray,suspension 1 spray intranasal DAILY 04/08/23 [History Confirmed 09/30/23] hydrocodone-acetaminop hen 5-325mg 5mg-325mg 1 tab PO BID PRN 04/08/23 [History Confirmed 09/30/23] omeprazole 20 mg capsule,delayed release 20 mg PO DAILY 04/08/23 [History Confirmed 09/30/23] tacrolimus 0.1 % topical ointment (Protopic) 1 applic topical BID PRN oral 04/08/23 [History Confirmed 09/30/23] metoprolol tartrate 25 mg tablet 12.5 mg (1/2 x 25 mg) PO BID #90 tabs 04/14/23 [Rx Confirmed 09/30/23] progesterone micronized 200 mg capsule See Rx Instructions .Route .COMPLEX #90 caps 07/05/23 [Rx Confirmed 09/30/23] venlafaxine 37.5 mg capsule,extended release 24 hr (Effexor XR) 37.5 mg PO DAILY #30 caps 09/30/23 [Rx Confirmed 09/30/23] venlafaxine 37.5 mg capsule,extended release 24 hr (Effexor XR) 37.5 mg PO DAILY #30 caps 09/30/23 [Rx Confirmed 09/30/23] Is last menstrual period known: No Post menopausal: Yes Patient : No : No PFSH Medical History (Updated 09/30/23 @ 14:[address] Taryn Lee MD) Arthritis Back pain BPPV (benign paroxysmal positional vertigo) Cancer Carotid stenosis Climacteric Dizziness Dysphagia Excessive bleeding Generalized convulsive epilepsy GERD (gastroesophageal reflux disease) GERD (gastroesophageal reflux disease) Hyperlipidemia Hyponatremia Left carpal tunnel syndrome Migraine Neuropathy Oral lichen planus MELA (obstructive sleep apnea) Other acute postprocedural pain Postmenopausal bleeding Seizure Sleep apnea Unsteadiness Vaginal atrophy Wears glasses Surgical History H/O hand surgery History of Achilles tendon repair History of bilateral hip replacements History of dilation and curettage History of laminectomy History of tonsillectomy History of tubal ligation History of vein stripping S/P cataract extraction Family History Mother Heart disease Hypertension CAD (coronary artery disease) Brother AAA (abdominal aortic aneurysm, ruptured) Sister AAA (abdominal aortic aneurysm, ruptured) Social History Smoking Status: Never smoker alcohol intake: never substance use type: does not use caffeine: Yes Type: carbonated beverages what type of physical activity do you participate in: walking seatbelt use: always do you feel safe at home: Yes additional social history: Ronnie- Both are retired History 3 Elective abortions Hx Para 2 Spontaneous abortions Hx # Term [place] (more content not included)... Normal [facility] Surgery Specimen Level Adrian 09-30-2023 Surgery Specimen Level IV Patient Age/Sex Location Account Attending Physician KATRINA MANCINI 83/F LABSPEC [id number] Dr. Taryn Lee MD Specimen: [id number] Received: 09/30/23 Status: JUAN M Menezes Num: [id number] Spec Type: ENDOM BX/C Subm Dr: Dr. Taryn Lee MD HEADER OPERATION: Endometrial biopsy PRE-OP DIAGNOSIS: Abnormal uterine bleeding TISSUE SUBMITTED: Endometrial lining ---- MICROSCOPIC DIAGNOSIS Endometrial lining, biopsy: Scant fragments of benign endometrial epithelium and benign endocervical epithelium and mucous. See comment. / 10/04/2023 COMMENT Specimen predominately consists of mucoid tissue. Clinical correlation and appropriate follow up are necessary. MICROSCOPIC DESCRIPTION Slides are reviewed. GROSS DESCRIPTION Received is one container labeled with the patient's name and not further designated. The specimen consists of multiple irregular fragments of smith-pink soft tissue that in aggregate measure 0.5 x 0.5 x 0.2 cm. The specimen is totally submitted in one cassette. / 10/03/2023 TC:4 CPT:65373 ---- Patient Age/Sex Location Account Attending Physician ---- KATRINA MANCINI 83/F LABSPEC [id number] Dr. Taryn Lee MD ---- Signed (signature on file) Dr. Ward Harrell MD 10/04/23 1135 ---- Normal [facility] Comment on above: Performed By: #### P BAUTISTA ####[facility] [id number] [place], [address] Alonso 08-01-2023 MARY JANE Office Visit (DESHAWN ) KATRINA MANCINI ([id number]) 1940 F Date Time Provider Department 08/01/23 4:40 PM AB SHAFFER JR During your visit today, we recorded the following information about you: Pulse Respiration Blood pressure Weight 77/minute 16/minute 136/78 59.6 kg Ab Shaffer Jr., MD 08/01/2023 5:24 PM Signed Ab Shaffer Jr., MD 08/01/2023 5:24 PM Signed ESTABLISHED PATIENT VISIT CHIEF COMPLAINT: Follow Up HISTORY OF PRESENT ILLNESS: Katrina Mancnii is a 83 year old female, BMI 22.91 kg/m2 with a PMH significant for and per last office visit note of 02/21/23: 1. Dizziness and giddiness - ICD9: 780.4, [...] referral to autonomic clinic for further evaluation. CTA head and neck on 03/03/23: No large vessel occlusion or significant stenosis. No acute intracranial process. Arterial blood flow was measured to detect acute large vessel occlusion by computer aided detection software: Not Performed. Concordance between software and imaging review: Not Applicable. Free Tegretol: 2.4. ECHO 03/10/23: - Exam indication: Syncope - The left ventricle is normal in size. There is mild concentric left ventricular hypertrophy. Left ventricular systolic function is normal. EF = 64 ? 5% (2D biplane) Grade I left ventricular diastolic dysfunction. - The right ventricle is normal in size. Right ventricular systolic function is normal. - There are no significant valvular abnormalities. - Exam was compared with the prior echocardiographic exam performed on 11/16/2011. There has been no significant change. Event monitor with SVT and advised pt to see cardiology. Pt reports dizziness resolved with vestibular therapy. If does appear to be coming back, will perform exercises taught and symptoms resolve. Maybe mild symptoms once per month. Pt did see [facility] for SVT and stated on lopressor 12.5mg BID. States no symptoms since on lopressor. However, states was not behaving while was on monitor and was not taking hormone therapy as she was supposed to. Now back on hormone therapy in form of provera, with estrace d/c'd. Pt is having hot flashes. No seizures. No headaches. Pt has had some low Na levels. Note, has been on Tegretol for years. Pt would not want to stop Tegretol. Currently following with renal. No new s/s of MELA. Wearing dental appliance nightly. REVIEW OF SYSTEMS GENERAL:No weight loss, malaise or fevers. HEENT:Negative for frequent or significant headaches, No changes in hearing or vision, no nose bleeds or other nasal problems RESPIRATORY: Negative for cough, wheezing or shortness of breath. CARDIOVASCULAR: Negative for chest pain, leg swelling or palpitations. GASTROINTESTINAL: Negative for abdominal discomfort, blood in stools or black stools or change in bowel habits GENITOURINARY: No history of dysuria, frequency or incontinence MUSCULOSKELETAL: Negative for joint pain or (more content not included)... Normal [facility] Absolute lymphocyte countOrd ered By: Magalys Mcclure on 07-22-2023 Lymphocytes Auto (Unsp spec) [#/Vol] 1.31 10*3/uL 0.83-4.51 [facility] Automated lymphocyte count a s percentage of total leukocytesOrdered By: Magalys Mcclure on 07-22-2023 Lymphocytes/100 WBC Auto (Unsp spec) 17.9 % 19-41 [facility] Basophil percentageOrdered B y: Magalys Mcclure on 07-22-2023 Basophils/100 WBC (Bld) 0.7 % 0-1 [facility] Bilirubin [Mass/Vol] 0.30 mg/dL 0.20-1.00 [facility] Comment on above: For patients on eltr ombopag therapy, use of Dimension [place] TBIL is not recommended. Chloride [Moles/Vol] 103 mmol/L 98-107 [facility] Cholesterol [Mass/Vol] 190 mg/dL <200 [facility] Comment on above: <200 mg/dL Desirable 200-240 mg/dL Borderline >240 mg/dL High Risk Eosinophils/100 WBC (Bld) 1.5 % 0-5 [facility] Glucose [Mass/Vol] 92 mg/dL 74-106 [facility] Hemoglobin (Bld) [Mass/Vol] 13.9 g/dL 12.0-15.0 [facility] Monocytes/100 WBC (Bld) 9.4 % 0-10 [facility] Neutrophils (Bld) [#/Vol] 5.1 10*3/uL 2.0-7.7 [facility] Neutrophils/100 WBC (Bld) 69.7 % 47-70 [facility] Potassium [Moles/Vol] 4.2 mmol/L 3.5-5.1 [facility] Protein [Mass/Vol] 7.6 g/dL 6.4-8.2 [facility] Sodium [Moles/Vol] 138 mmol/L 136-145 [facility] Triglyceride [Mass/Vol] 232 mg/dL <199 [facility] Comment on above: The drugs N-Acetylcy steine and Metamizole may falsely depress this assay.Serum Triglycerides Reference Interval Normal <150 mg/dL Borderline high 150 - 199 mg/dL High 200 - 499 mg/dL Very High > or = 500 mg/dL WBC (Bld) [#/Vol] 7.3 10*3/uL 4.4-11.0 [facility] Determination of erythrocyte mean corpuscular volume (MCV)Ordered By: Magalys Mcclure on 07-22-2023 MCV (RBC) [Entitic vol] 102.5 fL 81-99 [facility] Erythrocyte distribution wid th ratioOrdered By: Magalys Mcclure on 07-22-2023 Erythrocyte distribution width (RBC) [Ratio] 11.4 % 11.6-14.6 [facility] Erythrocyte distribution wid th standard deviationOrdered By: Magalys Mcclure on 07-22-2023 Erythrocyte distribution width (RBC) [Entitic vol] 43.4 fL 35.1-43.9 [facility] Hematocrit Auto (Bld) [Volum e fraction]Ordered By: Magalys Mcclure on 07-22-2023 Hematocrit (Bld) [Volume fraction] 41.3 % 37-47 [facility] Immature granulocytes/100 WB C Auto (Bld)Ordered By: Magalys Mcclure on 07-22-2023 Immature granulocytes/100 WBC (Bld) 0.800 % 0.0-0.9 [facility] Comment on above: IG% - Immature Granu locytes (promyelocytes, myelocytes and metamyelocytes) > 1% indicates that a LEFT SHIFT is Present. Laboratory - Chemistry and C hemistry - challengeOrdered By: Magalys Mcclure on 07-22-2023 Albumin/Globulin [Mass ratio] 1.2 {ratio} 0.9-2.4 [facility] ALP [Catalytic activity/Vol] 88 U/L 45-117 [facility] ALT [Catalytic activity/Vol] 40 U/L 13-56 [facility] Cholesterol in HDL [Mass/Vol] 58 mg/dL >40 [facility] Comment on above: The drugs N-Acetylcy steine and Metamizole may falsely depress this assay. Reference Range HDL <40 mg/dL Low HDL Cholesterol HDL >or= 60 mg/dL High HDL Cholesterol Cholesterol in LDL [Mass/Vol] 86 mg/dL 0-130 [facility] CO2 [Moles/Vol] 31.0 mmol/L 21.0-32.0 [facility] Globulin (S) [Mass/Vol] 3.5 g/dL 2.2-4.2 [facility] Urea nitrogen/Creatinine [Mass ratio] 32.1 mg/mg 10-20 [facility] Laboratory - Hematology and Cell countsOrdered By: Magalys Mcclure on 07-22-2023 MCH (RBC) [Entitic mass] 34.5 pg 27.0-32.0 [facility] MCHC (RBC) [Mass/Vol] 33.7 g/dL 32-36 [facility] Nucleated RBC/100 WBC (Bld) [Ratio] 0 % 0-5 [facility] Platelet mean volume (Bld) [Entitic vol] 9.1 fL 6.2-12.0 [facility] Platelets (Bld) [#/Vol] 335 10*3/uL 150-450 [facility] No Panel InformationOrdered By: Magalys Mcclure on 07-22-2023 Estimated GFR (MDRD) Amer 83 mL/min >60 [facility] Comment on above: GFR Calc Estimated GFR (MDRD) Non-Af Amer 68 mL/min >60 [facility] Comment on above: Non- GFR Calc Vitamin D 25-Hydroxy 32.4 ng/mL [facility] Comment on above: Vitamin D 25(OH) Sta tus Range Deficiency <20 ng/mL (50nmol/L) Insufficiency 20 - 30 ng/mL (50 - 75 nmol/L) Sufficiency 30 - 100 ng/mL (75 - 250 nmol/L) Toxicity >100 ng/mL (>250 nmol/L) VLDL Cholesterol 46 mg/dL 5-40 [facility] RBC Auto (Bld) [#/Vol]Ordere d By: Magalys Mcclure on 07-22-2023 RBC (Bld) [#/Vol] 4.03 10*6/uL 4.2-5.4 [facility] Serum or plasma calcium julius urement (mass/volume)Ordered By: Magalys Mcclure on 07-22-2023 Calcium [Mass/Vol] 9.6 mg/dL 8.5-10.1 [facility] Serum or plasma creatinine m easurement (mass/volume)Ordered By: Magalys Mcclure on 07-22-2023 Creatinine [Mass/Vol] 0.84 mg/dL 0.55-1.02 [facility] Comment on above: The validity of the calculated GFR & GFRAA in patients over 70 years has not been determined. Clinical correlation is essential. Serum or plasma urea nitroge n measurement (mass/volume)Ordered By: Magalys Mcclure on 07-22-2023 Urea nitrogen [Mass/Vol] 27 mg/dL 7-18 [facility] Thin prep Papanicolaou smear with manual screeningOrdered By: Magalys Mcclure on 07-22-2023 Thin prep Papanicolaou smear with manual screening 4.1 g/dL 3.2-5.0 [facility] Thin prep Papanicolaou smear with manual screening 19 U/L 15-37 [facility] Thin prep Papanicolaou smear with manual screening 4 5-15 [facility] Basophil percentageOrdered B y: Brittany Rogers on 06-23-2023 Basophil percentage 3.8 mg/dL 2.5-4.9 [facility] Chloride [Moles/Vol] 100 mmol/L 98-107 [facility] Glucose [Mass/Vol] 102 mg/dL 74-106 [facility] Comment on above: Fasting Glucose resu lt from 100 to 125 mg/dL suggests IMPAIRED HOMEOSTASIS per A.D.A. criteria. Potassium [Moles/Vol] 4.2 mmol/L 3.5-5.1 [facility] Sodium [Moles/Vol] 134 mmol/L 136-145 [facility] Laboratory - Chemistry and C hemistry - challengeOrdered By: Brittany Rogers on 06-23-2023 CO2 [Moles/Vol] 29.0 mmol/L 21.0-32.0 [facility] Urea nitrogen/Creatinine [Mass ratio] 22.4 mg/mg 10-20 [facility] No Panel InformationOrdered By: Brittany Rogers on 06-23-2023 Estimated GFR (MDRD) Amer 87 mL/min >60 [facility] Comment on above: GFR Calc Estimated GFR (MDRD) Non-Af Amer 72 mL/min >60 [facility] Comment on above: Non- GFR Calc Serum or plasma albumin julius urement (mass/volume)Ordered By: Brittany Rogers on 06-23-2023 Albumin [Mass/Vol] 4.0 g/dL 3.2-5.0 [facility] Serum or plasma calcium julius urement (mass/volume)Ordered By: Brittany Rogers on 06-23-2023 Calcium [Mass/Vol] 9.1 mg/dL 8.5-10.1 [facility] Serum or plasma creatinine m easurement (mass/volume)Ordered By: Brittany Rogers on 06-23-2023 Creatinine [Mass/Vol] 0.80 mg/dL 0.55-1.02 [facility] Comment on above: The validity of the calculated GFR & GFRAA in patients over 70 years has not been determined. Clinical correlation is essential. Serum or plasma urea nitroge n measurement (mass/volume)Ordered By: Brittany Rogers on 06-23-2023 Urea nitrogen [Mass/Vol] 18 mg/dL 7-18 [facility] CNTHERAPYon 04-29-2023 CNTHERAPY OT/PT/Speech Visit (PTWS) KATRINA MANCINI ([id number]) 1940 F Date Time Provider Department 04/29/23 12:30 PM MARCELLA HERCULES Date Time Provider Department Center 04/29/2023 12:30 PM [id number] HERCULES [facility] Reason for Visit: PT Discharge [752] Primary Visit Diagnosis:Dizziness and giddiness [R42] Allergies As of Date: 04/29/2023 Noted Allergy Reaction CODEINE 10/17/2002 Comments: nasea vomitting FLOXIN (OFLOXACIN) 04/18/2006 Comments: depression IMITREX (SUMATRIPTAN SUCCINATE) 04/18/2006 Comments: sweating, drop in BP MORPHINE 10/17/2002 Comments: [place]asea vomitting OPIOIDS-MEPERIDINE AND RELATED 10/17/2002 Comments: [place]ase[place] vomitting SULFA (SULFONAMIDE ANTIBIOTICS) 10/17/2002 Comments: nasea vomtting [id number] ANTIMIGRAINE [id number]/17/2002 Comments: heart palpitations Date Reviewed: 03/01/2023 Reviewed by: Jonelle Walker RT(R) - Fully Assessed Prescriptions as of 05/04/2023 - verapamil SR (CALAN SR) 240 mg CR tablet take 1 tablet by mouth every day - carBAMazepine (TEGRETOL) 200 mg tablet TAKE 1/2 TABLET BY MOUTH IN THE MORNING AND 1.5 TABLETS IN THE EVENING - alendronate (FOSAMAX) 70 mg tablet Take 70 mg by mouth one time a week. In AM with cup of water on empty stomach. Nothing else by mouth and stay upright for 30 min. - dexamethasone (DECADRON) 0.5 mg/5 mL Take 2 mg by mouth every 12 hours. - Clobetasol Propionate 0.05 % gel Apply to affected area. - omeprazole (PRILOSEC) 20 mg capsule - meloxicam (MOBIC) 15 mg tablet Take 1 tablet by mouth once daily. for pain. Take with food. - rosuvastatin (CRESTOR) 10 mg tablet Take 1 tablet by mouth once daily. - Omeprazole 40 mg capsule Take 1 capsule by mouth once daily. - tacrolimus (PROTOPIC) 0.1 % ointment Apply 1 application to affected area twice daily as needed. - medroxyPROGESTERone (PROVERA, CYCRIN) 10 mg tablet Take once daily for 14 days every 2-3 months - Estradiol (ESTRACE) 0.5 mg tablet Take 1 tablet by mouth once daily. - pyridoxine (VITAMIN B-6) 100 mg tablet Take 1 tablet by mouth once daily. - CALCIUM CARBONATE/VITAMIN D3 (VITAMIN D-3 ORAL) Take by mouth. - triamcinolone 0.1 % paste by DENTAL route twice daily. - multivitamins w-iron(DAILY MULTIPLE VITAMINS WITH IRON TAB) take one (1) tablet daily - BETAMETHASONE, AUGMENTED 0.05 % TOPICAL GEL apply on erosions on mouth 2-3 times a day as needed Facility-Administered Medications as of 05/04/2023 - perflutren lipid microspheres 1.3 mL in NaCl (PF) 0.9% 10 mL injection (DEFINITY) - sodium chloride 0.9 % (flush) 10 mL (BD POSIFLUSH) Normal [facility] Laboratory - Chemistry and C hemistry - challengeOrdered By: Brittany Rogers on 04-21-2023 Sodium (U) [Moles/Vol] 103 mmol/L Not Establ. [facility] Urine osmolality measurement Ordered By: Brittany Rogers on 04-21-2023 Osmolality (U) [Osmolality] 625 mOsm/KG >50 [facility] Comment on above: Normal Urine Referen ce Ranges Random: 50 - 1200 mOsm/kg H20 depending on fluid intake Random: >850 mOsm/kg after 12 hour fluid restriction 24 hour: ~300 - 900 mOsm/kg H2O Shane 04-20-2023 MARLON Telephone (DESHAWN) KATRINA MANCINI ([id number]) 1940 F Date Time Provider Department 04/20/23 AB SHAFFER JR During your visit today, we recorded the following information about you: Abel Medina RN 04/20/2023 10:56 AM Signed Patient reports she is scheduled for tilt table test this Tuesday. Reports she is doing vestibular Rehab and her symptoms of dizziness have resolved. Reports she saw her commissioned police officer, Dr. Forrest- who advised her he did not think the tilt table test was necessary. Asking Dr. Shaffer if it is ok for her to cancel the tilt table test? Please advise patient: [phone] Needs to know today, in order to cancel it today. Ab Shaffer Jr., MD 04/20/2023 3:21 PM Signed If patient chooses, can cx tilt table test, but if symptoms were to return, would again recommend this test be ordered and completed. Thank you, MD Dylan Manning Jessica, LPN 04/20/2023 3:45 PM Signed TC to pt who voiced understanding of below. Pt is going to cancel the test. Marcella Richardson LPN Allergies As of Date: 04/20/2023 Noted Allergy Reaction CODEINE 10/17/2002 Comments: nasea vomitting FLOXIN (OFLOXACIN) 04/18/2006 Comments: depression IMITREX (SUMATRIPTAN SUCCINATE) 04/18/2006 Comments: sweating, drop in BP MORPHINE 10/17/2002 Comments: nasea vomitting OPIOIDS-MEPERIDINE AND RELATED 10/17/2002 Comments: nasea vomitting SULFA (SULFONAMIDE ANTIBIOTICS) 10/17/2002 Comments: nasea vomtting [id number] ANTIMIGRAINE [id number]/17/2002 Comments: heart palpitations Date Reviewed: 03/01/2023 Reviewed by: Jonelle Walker RT(R) - Fully Assessed Reason for Visit: Patient Question [1277] Prescriptions as of 04/20/2023 - verapamil SR (CALAN SR) 240 mg CR tablet take 1 tablet by mouth every day - carBAMazepine (TEGRETOL) 200 mg tablet TAKE 1/2 TABLET BY MOUTH IN THE MORNING AND 1.5 TABLETS IN THE EVENING - alendronate (FOSAMAX) 70 mg tablet Take 70 mg by mouth one time a week. In AM with cup of water on empty stomach. Nothing else by mouth and stay upright for 30 min. - dexamethasone (DECADRON) 0.5 mg/5 mL Take 2 mg by mouth every 12 hours. - Clobetasol Propionate 0.05 % gel Apply to affected area. - omeprazole (PRILOSEC) 20 mg capsule - meloxicam (MOBIC) 15 mg tablet Take 1 tablet by mouth once daily. for pain. Take with food. - rosuvastatin (CRESTOR) 10 mg tablet Take 1 tablet by mouth once daily. - Omeprazole 40 mg capsule Take 1 capsule by mouth once daily. - tacrolimus (PROTOPIC) 0.1 % ointment Apply 1 application to affected area twice daily as needed. - medroxyPROGESTERone (PROVERA, CYCRIN) 10 mg tablet Take once daily for 14 days every 2-3 months - Estradiol (ESTRACE) 0.5 mg tablet Take 1 tablet by mouth once daily. - pyridoxine (VITAMIN B-6) 100 mg tablet Take 1 tablet by mouth once daily. - CALCIUM CARBONATE/VITAMIN D3 (VITAMIN D-3 ORAL) Take by mouth. - triamcinolone 0.1 % paste by DENTAL route twice daily. - multivitamins w-iron(DAILY MULTIPLE VITAMINS WITH IRON TAB) take one (1) tablet daily - BETAMETHASONE, AUGMENTED 0.05 % TOPICAL GEL apply on erosions on mouth 2-3 times a day as needed Facility-Administered Medications as of 04/20/2023 - perflutren lipid microspheres 1.3 mL in NaCl (PF) 0.9% 10 mL injection (DEFINITY) - sodium chloride 0.9 % (flush) 10 mL (BD POSIFLUSH) Problem List As Of Date 04/20/2023 Noted Resolved HYPERLIPIDEMIA NEC/NOS [E78.5] 02/02/2005 08/26/2015 Generalized convulsive epilepsy (HCC) [G40.309] 02/02/2005 ESOPHAGEAL REFLUX [K21.9] 02/02/2005 Migraine without aura [G43.009] 02/02/2005 SOMNOLENCE [R40.4] 01/03/2006 03/17/2016 SPINAL STENOSIS-LUMBAR [M48.061] 04/21/2006 PERS HX COLONIC POLYPS [Z86.010] 04/19/2007 DIARRHEA NOS [R19.7] 04/19/2007 UNSP ABNORMAL MAMMOGRAM [R92.8] 05/16/2007 LUMBAGO [M54.50] 02/19/2008 CERVICALGIA [M54.2] 02/21/2008 Postmenopausal Atrophic Vaginitis [N95.2] 05/12/2009 Symptomatic Menopausal or Female Climacteric St*05/12/2009 Urgency of urination [R39.15] 05/12/2009 05/29/2010 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] 10/14/2009 Lichen planus [L43.9] 03/17/2010 Postmenopausal bleeding [N95.0] 07/06/2011 03/14/2012 Hyperlipidemia [E78.5] 08/26/2015 Dizziness [R42] 12/01/2022 Unsteadiness [R26.81] 12/01/2022 Dizziness and giddiness [R42] 03/30/2023 Encounter Status:Closed by MARCELLA RICHARDSON on 04/20/[address] [facility] Basophil percentageOrdered B y: Magalys Mcclure on 04-14-2023 Chloride [Moles/Vol] 95 mmol/L 98-107 [facility] Glucose [Mass/Vol] 98 mg/dL 74-106 [facility] Potassium [Moles/Vol] 4.0 mmol/L 3.5-5.1 [facility] Sodium [Moles/Vol] 131 mmol/L 136-145 [facility] Laboratory - Chemistry and C hemistry - challengeOrdered By: Magalys Mcclure on 04-14-2023 CO2 [Moles/Vol] 29.0 mmol/L 21.0-32.0 [facility] Urea nitrogen/Creatinine [Mass ratio] 20.9 mg/mg 10- [facility] No Panel InformationOrdered By: Magalys Mcclure on 04-14-2023 Estimated GFR (MDRD) Amer 92 mL/min >60 [facility] Comment on above: GFR Calc Estimated GFR (MDRD) Non-Af Amer 76 mL/min >60 [facility] Comment on above: Non- GFR Calc No Panel InformationOrdered By: Samir Forrest on 04-14-2023 Thyroid Stimulating Hormone (TSH) 2.23 uIU/mL 0.358-3.74 [facility] Serum or plasma calcium julius urement (mass/volume)Ordered By: Magalys Mcclure on 04-14-2023 Calcium [Mass/Vol] 9.3 mg/dL 8.5-10.1 [facility] Serum or plasma creatinine m easurement (mass/volume)Ordered By: Magalys Mcclure on 04-14-2023 Creatinine [Mass/Vol] 0.77 mg/dL 0.55-1.02 [facility] Comment on above: The validity of the calculated GFR & GFRAA in patients over 70 years has not been determined. Clinical correlation is essential. Serum or plasma urea nitroge n measurement (mass/volume)Ordered By: Magalys Mcclure on 04-14-2023 Urea nitrogen [Mass/Vol] 16 mg/dL 7-18 [facility] Thin prep Papanicolaou smear with manual screeningOrdered By: Magalys Mcclure on 04-14-2023 Thin prep Papanicolaou smear with manual screening 7 5-15 [facility] CNTHERAPYon 04-08-2023 CNTHERAPY OT/PT/Speech Visit (PTWS) KATRINA MANCINI ([id number]) 1940 F Date Time Provider Department 04/08/23 10:00 AM MARCELLA HERCULES Date Time Provider Department [place] 04/08/2023 10:00 AM [id number] HERCULES [facility] Reason for Visit: Physical Therapy [503] Primary Visit Diagnosis:Dizziness and giddiness [R42] Allergies As of Date: 04/08/2023 Noted Allergy Reaction CODEINE 10/17/2002 Comments: nasea vomitting FLOXIN (OFLOXACIN) 04/18/2006 Comments: depression IMITREX (SUMATRIPTAN SUCCINATE) 04/18/2006 Comments: sweating, drop in BP MORPHINE 10/17/2002 Comments: [place]ase[place] vomitting OPIOIDS-MEPERIDINE AND RELATED 10/17/2002 Comments: [place] vomitting SULFA (SULFONAMIDE ANTIBIOTICS) 10/17/2002 Comments: [place]ase[place] vomtting [id number] ANTIMIGRAINE [id number]/17/2002 Comments: heart palpitations Date Reviewed: 03/01/2023 Reviewed by: Jonelle Walker RT(R) - Fully Assessed Prescriptions as of 04/08/2023 - carBAMazepine (TEGRETOL) 200 mg tablet TAKE 1/2 TABLET BY MOUTH IN THE MORNING AND 1.5 TABLETS IN THE EVENING - verapamil SR (CALAN SR) 240 mg CR tablet Take 1 tablet by mouth once daily. - alendronate (FOSAMAX) 70 mg tablet Take 70 mg by mouth one time a week. In AM with cup of water on empty stomach. Nothing else by mouth and stay upright for 30 min. - dexamethasone (DECADRON) 0.5 mg/5 mL Take 2 mg by mouth every 12 hours. - Clobetasol Propionate 0.05 % gel Apply to affected area. - omeprazole (PRILOSEC) 20 mg capsule - meloxicam (MOBIC) 15 mg tablet Take 1 tablet by mouth once daily. for pain. Take with food. - rosuvastatin (CRESTOR) 10 mg tablet Take 1 tablet by mouth once daily. - Omeprazole 40 mg capsule Take 1 capsule by mouth once daily. - tacrolimus (PROTOPIC) 0.1 % ointment Apply 1 application to affected area twice daily as needed. - medroxyPROGESTERone (PROVERA, CYCRIN) 10 mg tablet Take once daily for 14 days every 2-3 months - Estradiol (ESTRACE) 0.5 mg tablet Take 1 tablet by mouth once daily. - pyridoxine (VITAMIN B-6) 100 mg tablet Take 1 tablet by mouth once daily. - CALCIUM CARBONATE/VITAMIN D3 (VITAMIN D-3 ORAL) Take by mouth. - triamcinolone 0.1 % paste by DENTAL route twice daily. - multivitamins w-iron(DAILY MULTIPLE VITAMINS WITH IRON TAB) take one (1) tablet daily - BETAMETHASONE, AUGMENTED 0.05 % TOPICAL GEL apply on erosions on mouth 2-3 times a day as needed Facility-Administered Medications as of 04/08/2023 - perflutren lipid microspheres 1.3 mL in NaCl (PF) 0.9% 10 mL injection (DEFINITY) - sodium chloride 0.9 % (flush) 10 mL (BD POSIFLUSH) [facility] CNPNon 04-04-2023 CNPN Telephone (NEMOWS) BRENDAKATRINA KIMBALL ([id number]) 1940 F Date Time Provider Department 04/04/23 AB SHAFFER JR During your visit today, we recorded the following information about you: Erin Mora OCCA 04/04/2023 7:20 AM Signed ----- Message from Ab Shaffer Jr., MD sent at 04/01/2023 11:47 PM EDT ----- I would like pt to see cardiology given that it appears run of SVT associated with symptoms. Uncertain if pt has preference of who she would like to see. Otherwise, I will place referral once patient responds. MD Jaycob Manning Lorinda LPN 04/04/2023 8:57 AM Signed Phone call placed patient advised (see prior provider encounter) Patient verbalized understanding, agreed with plan of care, reported current [employer] Dr Mata, last OV 01/2023, results ( 11 pages) faxed to [phone]. Ashley Devries LPN Allergies As of Date: 04/04/2023 Noted Allergy Reaction CODEINE 10/17/2002 Comments: nase[place] vomitting FLOXIN (OFLOXACIN) 04/18/2006 Comments: depression IMITREX (SUMATRIPTAN SUCCINATE) 04/18/2006 Comments: sweating, drop in BP MORPHINE 10/17/2002 Comments: [place]ase[place] vomitting OPIOIDS-MEPERIDINE AND RELATED 10/17/2002 Comments: [place]ase[place] vomitting SULFA (SULFONAMIDE ANTIBIOTICS) 10/17/2002 Comments: [place] vomtting [id number] ANTIMIGRAINE [id number]/17/2002 Comments: heart palpitations Date Reviewed: 03/01/2023 Reviewed by: Jonelle Walker RT(R) - Fully Assessed Reason for Visit: Results [95] Prescriptions as of 04/04/2023 - carBAMazepine (TEGRETOL) 200 mg tablet TAKE 1/2 TABLET BY MOUTH IN THE MORNING AND 1.5 TABLETS IN THE EVENING - verapamil SR (CALAN SR) 240 mg CR tablet Take 1 tablet by mouth once daily. - alendronate (FOSAMAX) 70 mg tablet Take 70 mg by mouth one time a week. In AM with cup of water on empty stomach. Nothing else by mouth and stay upright for 30 min. - dexamethasone (DECADRON) 0.5 mg/5 mL Take 2 mg by mouth every 12 hours. - Clobetasol Propionate 0.05 % gel Apply to affected area. - omeprazole (PRILOSEC) 20 mg capsule - meloxicam (MOBIC) 15 mg tablet Take 1 tablet by mouth once daily. for pain. Take with food. - rosuvastatin (CRESTOR) 10 mg tablet Take 1 tablet by mouth once daily. - Omeprazole 40 mg capsule Take 1 capsule by mouth once daily. - tacrolimus (PROTOPIC) 0.1 % ointment Apply 1 application to affected area twice daily as needed. - medroxyPROGESTERone (PROVERA, CYCRIN) 10 mg tablet Take once daily for 14 days every 2-3 months - Estradiol (ESTRACE) 0.5 mg tablet Take 1 tablet by mouth once daily. - pyridoxine (VITAMIN B-6) 100 mg tablet Take 1 tablet by mouth once daily. - CALCIUM CARBONATE/VITAMIN D3 (VITAMIN D-3 ORAL) Take by mouth. - triamcinolone 0.1 % paste by DENTAL route twice daily. - multivitamins w-iron(DAILY MULTIPLE VITAMINS WITH IRON TAB) take one (1) tablet daily - BETAMETHASONE, AUGMENTED 0.05 % TOPICAL GEL apply on erosions on mouth 2-3 times a day as needed Facility-Administered Medications as of 04/04/2023 - perflutren lipid microspheres 1.3 mL in NaCl (PF) 0.9% 10 mL injection (DEFINITY) - sodium chloride 0.9 % (flush) 10 mL (BD POSIFLUSH) Problem List As Of Date 04/04/2023 Noted Resolved HYPERLIPIDEMIA NEC/NOS [E78.5] 02/02/2005 08/26/2015 Generalized convulsive epilepsy (HCC) [G40.309] 02/02/2005 ESOPHAGEAL REFLUX [K21.9] 02/02/2005 Migraine without aura [G43.009] 02/02/2005 SOMNOLENCE [R40.4] 01/03/2006 03/17/2016 SPINAL STENOSIS-LUMBAR [M48.061] 04/21/2006 PERS HX COLONIC POLYPS [Z86.010] 04/19/2007 DIARRHEA NOS [R19.7] 04/19/2007 UNSP ABNORMAL MAMMOGRAM [R92.8] 05/16/2007 LUMBAGO [M54.50] 02/19/2008 CERVICALGIA [M54.2] 02/21/2008 Postmenopausal Atrophic Vaginitis [N95.2] 05/12/2009 Symptomatic Menopausal or Female Climacteric St*05/12/2009 Urgency of urination [R39.15] 05/12/2009 05/29/2010 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] 10/14/2009 Lichen planus [L43.9] 03/17/2010 Postmenopausal bleeding [N95.0] 07/06/2011 03/14/2012 Hyperlipidemia [E78.5] 08/26/2015 Dizziness [R42] 12/01/2022 Unsteadiness [R26.81] 12/01/2022 Dizziness and giddiness [R42] 03/30/2023 Encounter Status:Closed by ASHLEY DEVRIES LPN on 04/04/23 [facility] (NEMNetuitive) KATRINA MANCINI ([id number]) 1940 F Date Time Provider Department 04/04/23 CHRISTIAN CORBIN, AB HESS During your visit today, we recorded the following information about you: Marcella Richardson LPN 04/04/2023 1:02 PM Signed Fax received from [facility] requesting last office note from Dr. Shaffer. Office note dated 02/21/23 faxed to [phone]. Marcella Richardson LPN Allergies As of Date: 04/04/2023 Noted Allergy Reaction CODEINE 10/17/2002 Comments: nasea vomitting FLOXIN (OFLOXACIN) 04/18/2006 Comments: depression IMITREX (SUMATRIPTAN SUCCINATE) 04/18/2006 Comments: sweating, drop in BP MORPHINE 10/17/2002 Comments: nase[place] vomitting OPIOIDS-MEPERIDINE AND RELATED 10/17/2002 Comments: nasea vomitting SULFA (SULFONAMIDE ANTIBIOTICS) 10/17/2002 Comments: [place]ase[place] vomtting [id number] ANTIMIGRAINE [id number]/17/2002 Comments: heart palpitations Date Reviewed: 03/01/2023 Reviewed by: Jonelle Walker, RT(R) - Fully Assessed Reason for Visit: 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 - Other [3602] Prescriptions as of 04/04/2023 - carBAMazepine (TEGRETOL) 200 mg tablet TAKE 1/2 TABLET BY MOUTH IN THE MORNING AND 1.5 TABLETS IN THE EVENING - verapamil SR (CALAN SR) 240 mg CR tablet Take 1 tablet by mouth once daily. - alendronate (FOSAMAX) 70 mg tablet Take 70 mg by mouth one time a week. In AM with cup of water on empty stomach. Nothing else by mouth and stay upright for 30 min. - dexamethasone (DECADRON) 0.5 mg/5 mL Take 2 mg by mouth every 12 hours. - Clobetasol Propionate 0.05 % gel Apply to affected area. - omeprazole (PRILOSEC) 20 mg capsule - meloxicam (MOBIC) 15 mg tablet Take 1 tablet by mouth once daily. for pain. Take with food. - rosuvastatin (CRESTOR) 10 mg tablet Take 1 tablet by mouth once daily. - Omeprazole 40 mg capsule Take 1 capsule by mouth once daily. - tacrolimus (PROTOPIC) 0.1 % ointment Apply 1 application to affected area twice daily as needed. - medroxyPROGESTERone (PROVERA, CYCRIN) 10 mg tablet Take once daily for 14 days every 2-3 months - Estradiol (ESTRACE) 0.5 mg tablet Take 1 tablet by mouth once daily. - pyridoxine (VITAMIN B-6) 100 mg tablet Take 1 tablet by mouth once daily. - CALCIUM CARBONATE/VITAMIN D3 (VITAMIN D-3 ORAL) Take by mouth. - triamcinolone 0.1 % paste by DENTAL route twice daily. - multivitamins w-iron(DAILY MULTIPLE VITAMINS WITH IRON TAB) take one (1) tablet daily - BETAMETHASONE, AUGMENTED 0.05 % TOPICAL GEL apply on erosions on mouth 2-3 times a day as needed Facility-Administered Medications as of 04/04/2023 - perflutren lipid microspheres 1.3 mL in NaCl (PF) 0.9% 10 mL injection (DEFINITY) - sodium chloride 0.9 % (flush) 10 mL (BD POSIFLUSH) Problem List As Of Date 04/04/2023 Noted Resolved HYPERLIPIDEMIA NEC/NOS [E78.5] 02/02/2005 08/26/2015 Generalized convulsive epilepsy (HCC) [G40.309] 02/02/2005 ESOPHAGEAL REFLUX [K21.9] 02/02/2005 Migraine without aura [G43.009] 02/02/2005 SOMNOLENCE [R40.4] 01/03/2006 03/17/2016 SPINAL STENOSIS-LUMBAR [M48.061] 04/21/2006 PERS HX COLONIC POLYPS [Z86.010] 04/19/2007 DIARRHEA NOS [R19.7] 04/19/2007 UNSP ABNORMAL MAMMOGRAM [R92.8] 05/16/2007 LUMBAGO [M54.50] 02/19/2008 CERVICALGIA [M54.2] 02/21/2008 Postmenopausal Atrophic Vaginitis [N95.2] 05/12/2009 Symptomatic Menopausal or Female Climacteric St*05/12/2009 Urgency of urination [R39.15] 05/12/2009 05/29/2010 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] 10/14/2009 Lichen planus [L43.9] 03/17/2010 Postmenopausal bleeding [N95.0] 07/06/2011 03/14/2012 Hyperlipidemia [E78.5] 08/26/2015 Dizziness [R42] 12/01/2022 Unsteadiness [R26.81] 12/01/2022 Dizziness and giddiness [R42] 03/30/2023 Encounter Status:Closed by DYLAN MARCELLA on 04/04/23 Normal [facility] Odell Basophil percentageOrdered B y: Magalys Mcclure on 04-01-2023 Chloride [Moles/Vol] 100 mmol/L 98-107 [facility] Glucose [Mass/Vol] 97 mg/dL 74-106 [facility] Potassium [Moles/Vol] 4.1 mmol/L 3.5-5.1 [facility] Sodium [Moles/Vol] 134 mmol/L 136-145 [facility] Laboratory - Chemistry and C hemistry - challengeOrdered By: Magalys Mcclure on 04-01-2023 CO2 [Moles/Vol] 30.0 mmol/L 21.0-32.0 [facility] Urea nitrogen/Creatinine [Mass ratio] 22.3 mg/mg 04-01 [facility] No Panel InformationOrdered By: Magalys Mcclure on 04-01-2023 Estimated GFR (MDRD) Amer 100 mL/min >60 [facility] Comment on above: GFR Calc Estimated GFR (MDRD) Non-Af Amer 82 mL/min >60 [facility] Comment on above: Non- GFR Calc Serum or plasma calcium julius urement (mass/volume)Ordered By: Magalys Mcclure on 04-01-2023 Calcium [Mass/Vol] 9.1 mg/dL 8.5-10.1 [facility] Serum or plasma creatinine m easurement (mass/volume)Ordered By: Magalys Mcclure on 04-01-2023 Creatinine [Mass/Vol] 0.72 mg/dL 0.55-1.02 [facility] Comment on above: The validity of the calculated GFR & GFRAA in patients over 70 years has not been determined. Clinical correlation is essential. Serum or plasma urea nitroge n measurement (mass/volume)Ordered By: Magalys Mcclure on 04-01-2023 Urea nitrogen [Mass/Vol] 16 mg/dL - [facility] Thin prep Papanicolaou smear with manual screeningOrdered By: Magalys Mcclure on 04-01-2023 Thin prep Papanicolaou smear with manual screening 4 5-15 [facility] CNTHERAPYon 03-30-2023 CNTHERAPY OT/PT/Speech Visit (PTWS) BRENDAKATRINA KIMBALL ([id number]) 1940 F Date Time Provider Department 03/30/23 11:15 AM MARCELLA HERCULES PTEB Date Time Provider Department Center 03/30/2023 11:15 AM [id number] HERCULES PTEB [facility] Reason for Visit: PT Eval [747] Primary Visit Diagnosis:Dizziness and giddiness [R42] Allergies As of Date: 03/30/2023 Noted Allergy Reaction CODEINE 10/17/2002 Comments: nasea vomitting FLOXIN (OFLOXACIN) 04/18/2006 Comments: depression IMITREX (SUMATRIPTAN SUCCINATE) 04/18/2006 Comments: sweating, drop in BP MORPHINE 10/17/2002 Comments: nase[place] vomitting OPIOIDS-MEPERIDINE AND RELATED 10/17/2002 Comments: [place]ase[place] vomitting SULFA (SULFONAMIDE ANTIBIOTICS) 10/17/2002 Comments: [place]ase[place] vomtting [id number]-[id number] ANTIMIGRAINE [id number]/17/2002 Comments: heart palpitations Date Reviewed: 03/01/2023 Reviewed by: Jonelle Walker, RT(R) - Fully Assessed Prescriptions as of 03/30/2023 - carBAMazepine (TEGRETOL) 200 mg tablet TAKE 1/2 TABLET BY MOUTH IN THE MORNING AND 1.5 TABLETS IN THE EVENING - verapamil SR (CALAN SR) 240 mg CR tablet Take 1 tablet by mouth once daily. - alendronate (FOSAMAX) 70 mg tablet Take 70 mg by mouth one time a week. In AM with cup of water on empty stomach. Nothing else by mouth and stay upright for 30 min. - dexamethasone (DECADRON) 0.5 mg/5 mL Take 2 mg by mouth every 12 hours. - Clobetasol Propionate 0.05 % gel Apply to affected area. - omeprazole (PRILOSEC) 20 mg capsule - meloxicam (MOBIC) 15 mg tablet Take 1 tablet by mouth once daily. for pain. Take with food. - rosuvastatin (CRESTOR) 10 mg tablet Take 1 tablet by mouth once daily. - Omeprazole 40 mg capsule Take 1 capsule by mouth once daily. - tacrolimus (PROTOPIC) 0.1 % ointment Apply 1 application to affected area twice daily as needed. - medroxyPROGESTERone (PROVERA, CYCRIN) 10 mg tablet Take once daily for 14 days every 2-3 months - Estradiol (ESTRACE) 0.5 mg tablet Take 1 tablet by mouth once daily. - pyridoxine (VITAMIN B-6) 100 mg tablet Take 1 tablet by mouth once daily. - CALCIUM CARBONATE/VITAMIN D3 (VITAMIN D-3 ORAL) Take by mouth. - triamcinolone 0.1 % paste by DENTAL route twice daily. - multivitamins w-iron(DAILY MULTIPLE VITAMINS WITH IRON TAB) take one (1) tablet daily - BETAMETHASONE, AUGMENTED 0.05 % TOPICAL GEL apply on erosions on mouth 2-3 times a day as needed Facility-Administered Medications as of 03/30/2023 - perflutren lipid microspheres 1.3 mL in NaCl (PF) 0.9% 10 mL injection (DEFINITY) - sodium chloride 0.9 % (flush) 10 mL (BD POSIFLUSH) [facility] CNOVon 03-18-2023 CNOV Office Visit (CDISMN ) KATRINA MANCINI ([id number]) 1940 F Date Time Provider Department 03/18/23 12:30 PM [facility] your visit today, we recorded the following information about you: Sharonda Duran, PhD 03/18/2023 5:14 PM Signed [facility] [place] [facility] Vestibular Test Battery Report Name: Katrina Mancini CCF#: [id number] Date of Service: 03/18/2023 Date of : 1940 Age: [age] year old Referred by: Ab Shaffer Jr., MD And is a patient of Magalys Mcclure MD, MD Referred for: Evaluation of the [...] following history was obtained by way of Katrina Mancini's previous medical record, patient entered questionnaire, and direct patient interview: Katrina Mancini presents with dizziness and lightheadedness. Symptoms began prior to February, but she reported she, has been okay lately because she makes sure to take her time as to not exacerbate any symptoms of dizziness. When the symptoms occur, they last for seconds in duration. Symptoms are provoked by rolling to the left in bed and standing up quickly. Katrina denies any auditory and visual complaints. Of note, Katrina has a history of headaches and migraines, however, they are not associated with dizziness nor occur at similar times/have similar triggers. Katrina takes medication for her migraines and reported they localize to the right when they occur. Additionally, Katrina reported she has had one seizure in the past. Katrina has not fallen two or more times in the past year or fallen once with with injury and reports a fear of falling. Katrina is currently using an ambulatory device: a cane. Aforementioned symptoms are impacting Katrina's quality of life: she avoids moving quickly [...] RECOMMENDATIONS: - Continue medical follow up with Ab Shaffer Jr., MD and Magalys Mcclure MD, MD. - Consider further fall prevention management based [...] The results and recommendations were explained to Katrina Mancini and her daughter and they expressed understanding of the information. History Present Illness SUMMARY OF PAST MEDICAL HISTORY: Referring provider Ab Prather Jr., MD: per provider's note on [...] or weakness. Summary of relevant imaging (directly a (more content not included)... [facility] CNPNon 03-11-2023 CNPN Telephone (NEUR) KATRINA MANCINI ([id number]) 1940 F Date Time Provider Department 03/11/23 AB SHAFFER JR During your visit today, we recorded the following information about you: Cindi Seay RN 03/11/2023 2:53 PM Signed Received voicemail 03-11-23 at 10:28 AM. This is Katrina Mancini, date 36. I need to speak to a nurse I can't go through this on our recording. Call back to patient. No answer. Left voicemail to return call. Cindi Seay RN 03/11/2023 3:54 PM Addendum Received voicemail 03-11-23 at 3:18 PM. Patient returning call. Call back to patient. She states that she received the ZIO to put on. She put it on today and then she looked at her appointments and was wondering if the ZIO would interfere with the vestibular rehab she is scheduled for on 03-18-23. She also called the [employer] company and they advised that there were [...] visit. Forwarding to Dr. Shaffer for review. Ab Shaffer Jr., MD 03/11/2023 5:51 PM Signed Should be no contraindication. MD Morgan Manning Gillian, OCCA 03/14/2023 9:35 AM Signed TC to patient who verbalized understanding of providers message and has no further questions at this time. JESUS Posadas Allergies As of Date: 03/11/2023 Noted Allergy Reaction CODEINE 10/17/2002 Comments: nasea vomitting FLOXIN (OFLOXACIN) 04/18/2006 Comments: depression IMITREX (SUMATRIPTAN SUCCINATE) 04/18/2006 Comments: sweating, drop in BP MORPHINE 10/17/2002 Comments: nasea vomitting OPIOIDS-MEPERIDINE AND RELATED 10/17/2002 Comments: nasea vomitting SULFA (SULFONAMIDE ANTIBIOTICS) 10/17/2002 Comments: nase[place] vomtting [id number] ANTIMIGRAINE ZFTFZF8610/17/2002 Comments: heart palpitations Date Reviewed: 03/01/2023 Reviewed by: Jonelle Walker RT(R) - Fully Assessed Reason for Visit: Patient Question [4987] Prescriptions as of 03/14/2023 - carBAMazepine (TEGRETOL) 200 mg tablet TAKE 1/2 TABLET BY MOUTH IN THE MORNING AND 1.5 TABLETS IN THE EVENING - verapamil SR (CALAN SR) 240 mg CR tablet Take 1 tablet by mouth once daily. - alendronate (FOSAMAX) 70 mg tablet Take 70 mg by mouth one time a week. In AM with cup of water on empty stomach. Nothing else by mouth and stay upright for 30 min. - dexamethasone (DECADRON) 0.5 mg/5 mL Take 2 mg by mouth every 12 hours. - Clobetasol Propionate 0.05 % gel Apply to affected area. - omeprazole (PRILOSEC) 20 mg capsule - meloxicam (MOBIC) 15 mg tablet Take 1 tablet by mouth once daily. for pain. Take with food. - rosuvastatin (CRESTOR) 10 mg tablet Take 1 tablet by mouth once daily. - Omeprazole 40 mg capsule Take 1 capsule by mouth once daily. - tacrolimus (PROTOPIC) 0.1 % ointment Apply 1 application to affected area twice daily as needed. - medroxyPROGESTERone (PROVERA, CYCRIN) 10 mg tablet Take once daily for 14 days every 2-3 months - Estradiol (ESTRACE) 0.5 mg tablet Take 1 tablet by mouth once daily. - pyridoxine (VITAMIN B-6) 100 mg tablet Take 1 tablet by mouth once daily. - CALCIUM CARBONATE/VITAMIN D3 (VITAMIN D-3 ORAL) Take by mouth. - triamcinolone 0.1 % paste by DENTAL route twice daily. 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 ESOPHAGEAL REFLUX [K21.9] 02/02/2005 Migraine without aura [G43.009] 02/02/2005 SOMNOLENCE [R40.4] 01/03/2006 03/17/2016 SPINAL STENOSIS-LUMBAR [M48.061] 04/21/2006 PERS HX COLONIC POLYPS [Z86.010] 04/19/2007 DIARRHEA NOS [R19.7] 04/19/2007 UNSP ABNORMAL MAMMOGRAM [R92.8] 05/16/2007 LUMBAGO [M54.50] 02/19/2008 CERVICALGIA [M54.2] 02/21/2008 Postmenopausal Atrophic Vaginitis [N95.2] 05/12/2009 Symptomatic Menopausal or Female Climacteric St*05/12/2009 Urgency of urination [R39.15] 05/12/2009 05/29/2010 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] 10/14/2009 Lichen planus [L43.9] 03/17/2010 Postmenopausal bleeding [N95.0] 07/06/2011 03/14/2012 Hyperlipidemia [E78.5] 08/26/2015 Dizziness [R42] 12/01/2022 Unsteadiness [R26.81] 12/01/2022 Encounter Status:Closed by N (more content not included)... [facility] Telephone (SLEWST) KATRINA MANCINI ([id number]) 1940 F Date Time Provider Department 03/10/23 AB SHAFFER JR During your visit today, we recorded the following information about you: Ashley Devries LPN 03/10/2023 11:35 AM Signed Phone call placed to schedule spouse appointment, patient had questions in regards to ZIO monitor that was received in the mail today. Zio instructions given to patient, reviewed OV Dr. Shaffer (why testing was ordered) . Patient verbalized understanding, agreed with plan of care. Ashley Devries LPN Allergies As of Date: 03/10/2023 Noted Allergy Reaction CODEINE 10/17/2002 Comments: nasea vomitting FLOXIN (OFLOXACIN) 04/18/2006 Comments: depression IMITREX (SUMATRIPTAN SUCCINATE) 04/18/2006 Comments: sweating, drop in BP MORPHINE 10/17/2002 Comments: nasea vomitting OPIOIDS-MEPERIDINE AND RELATED 10/17/2002 Comments: nase[place] vomitting SULFA (SULFONAMIDE ANTIBIOTICS) 10/17/2002 Comments: nase[place] vomtting [id number] ANTIMIGRAINE EUXENE2210/17/2002 Comments: heart palpitations Date Reviewed: 03/01/2023 Reviewed by: Jonelle Walker, RT(R) - Fully Assessed Prescriptions as of 03/10/2023 - carBAMazepine (TEGRETOL) 200 mg tablet TAKE 1/2 TABLET BY MOUTH IN THE MORNING AND 1.5 TABLETS IN THE EVENING - verapamil SR (CALAN SR) 240 mg CR tablet Take 1 tablet by mouth once daily. - alendronate (FOSAMAX) 70 mg tablet Take 70 mg by mouth one time a week. In AM with cup of water on empty stomach. Nothing else by mouth and stay upright for 30 min. - dexamethasone (DECADRON) 0.5 mg/5 mL Take 2 mg by mouth every 12 hours. - Clobetasol Propionate 0.05 % gel Apply to affected area. - omeprazole (PRILOSEC) 20 mg capsule - meloxicam (MOBIC) 15 mg tablet Take 1 tablet by mouth once daily. for pain. Take with food. - rosuvastatin (CRESTOR) 10 mg tablet Take 1 tablet by mouth once daily. - Omeprazole 40 mg capsule Take 1 capsule by mouth once daily. - tacrolimus (PROTOPIC) 0.1 % ointment Apply 1 application to affected area twice daily as needed. - medroxyPROGESTERone (PROVERA, CYCRIN) 10 mg tablet Take once daily for 14 days every 2-3 months - Estradiol (ESTRACE) 0.5 mg tablet Take 1 tablet by mouth once daily. - pyridoxine (VITAMIN B-6) 100 mg tablet Take 1 tablet by mouth once daily. - CALCIUM CARBONATE/VITAMIN D3 (VITAMIN D-3 ORAL) Take by mouth. - triamcinolone 0.1 % paste by DENTAL route twice daily. 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 ESOPHAGEAL REFLUX [K21.9] 02/02/2005 Migraine without aura [G43.009] 02/02/2005 SOMNOLENCE [R40.4] 01/03/2006 03/17/2016 SPINAL STENOSIS-LUMBAR [M48.061] 04/21/2006 PERS HX COLONIC POLYPS [Z86.010] 04/19/2007 DIARRHEA NOS [R19.7] 04/19/2007 UNSP ABNORMAL MAMMOGRAM [R92.8] 05/16/2007 LUMBAGO [M54.50] 02/19/2008 CERVICALGIA [M54.2] 02/21/2008 Postmenopausal Atrophic Vaginitis [N95.2] 05/12/2009 Symptomatic Menopausal or Female Climacteric St*05/12/2009 Urgency of urination [R39.15] 05/12/2009 05/29/2010 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] 10/14/2009 Lichen planus [L43.9] 03/17/2010 Postmenopausal bleeding [N95.0] 07/06/2011 03/14/2012 Hyperlipidemia [E78.5] 08/26/2015 Dizziness [R42] 12/01/2022 Unsteadiness [R26.81] 12/01/2022 Encounter Status:Closed by ASHLEY DEVRIES LPN on 03/10/23 [facility] ECHOon 03-10-2023 Echocardiography Echocardiography Report: Transthoracic Echo [facility] Date of service: 03/10/2023 1:03:32 PM HEALTH ASSISTANT Ordering physician: AB SHAFFER JR Indication: Syncope Technologist: Cindi Latham [facility] Interpreting physician: Angel Campbell MD PATIENT: Name: KATRINA MANCINI : 1940 Age: 82 years Gender: F History of dyslipidemia. Primary rhythm: sinus. Height: 161.30 cm BSA: 1.64 m Weight: 60.24 kg BMI: 23.2 kg/m Heart rate 70 bpm Blood pressure 165/77 mmHg Color Doppler was utilized to interrogate the cardiac valves assessed and spectral Doppler was utilized to determine the flow velocities and pressure gradients reported in this exam. MEASUREMENTS: Value Indexed Normal Max aortic dimension 3.4 cm Ao < 3.8 Left atrial volume 44 ml (biplane A-L) 27 ml/m Harriett <= 34 LV ID (diastole) 3.0 cm (2D) 1.82 cm/m LV ID (systole) 2.1 cm (2D) 1.26 cm/m IVS, leaflet tips 1.2 cm (2D) Posterior wall thickness 1.2 cm (2D) Left ventricular mass 109 g (2D) 66 g/m LV stroke volume 37 ml (2D biplane) LV end diastolic volume 58 ml (2D biplane) 35.1 ml/m 29<=EDVi<62 LV end systolic volume 21 ml (2D biplane) 12.5 ml/m Ejection Fraction 64 % (2D biplane) EF > 54 FINDINGS: LEFT VENTRICLE The left ventricle is normal in size. There is mild concentric left ventricular hypertrophy. Left ventricular systolic function is normal. Grade I left ventricular diastolic dysfunction. Mitral annular lateral E/e': 7.3. Mitral annular septal E/e': 9.7. Wall Motion: All scored segments are normal. RIGHT VENTRICLE The right ventricle is normal in size. Right ventricular systolic function is normal. RV systolic tissue Doppler velocity is 14.0 cm/s. Estimated right ventricular systolic pressure is 25 mmHg consistent with normal pulmonary artery pressures. Estimated right atrial pressure is 3 mmHg (although IVC not seen). LEFT ATRIUM The left atrial cavity is normal in size. RIGHT ATRIUM The right atrial cavity is normal in size. Inferior Vena Cava: The inferior vena cava appears normal measuring 1.3 cm. MITRAL VALVE The mitral valve leaflets are structurally normal. There is trace mitral valve regurgitation. The pressure half time is 80 msec. The peak mitral E/A ratio is 0.66. The average mitral E/e' ratio is 8.5. The mitral flow deceleration time is 277 msec. TRICUSPID VALVE The tricuspid valve leaflets are structurally normal. There is trace (trace - 1+) tricuspid valve regurgitation. AORTIC VALVE The aortic valve cusps are structurally normal. There is no aortic valve regurgitation. Tricuspid aortic valve. The peak gradient is 6 mmHg (peak velocity = 122.5 cm/s). PULMONIC VALVE The pulmonic valve cusps are structurally normal. There is trace (trace - 1+) pulmonic valve regurgitation. AORTA The visualized aorta is normal in size. Measurements - Mid ascending aorta 3.4 cm. PERICARDIUM There is a trivial pericardial effusion. CONCLUSIONS: - Exam indication: Syncope - The left ventricle is normal in size. There is mild concentric left ventricular hypertrophy. Left ventricular systolic function is normal. EF = 64 5% (2D biplane) Grade I left ventricular diastolic dysfunction. - The right ventricle is normal in size. Right ventricular systolic function is normal. - There are no significant valvular abnormalities. - Exam was compared with the prior CC echocardiographic exam performed on 11/16/2011. There has been no significant change. * * * Final * * * CC [facility] : [id number] sSISUID [facility] CNPShayy 03-08-2023 CNPMilvia Telephone (NEMOWS) BRENDAKATRINA KIMBALL ([id number]) 1940 F Date Time Provider Department 03/08/23 AB SHAFFER JR During your visit today, we recorded the following information about you: Marcella Richardson LPN 03/08/2023 9:56 AM Signed Pt called in requesting her results from her scans she had done last week. CTA Neck and CTA of Head. SAYRA Lorenzo William J Jr., MD 03/08/2023 12:04 PM Signed Please let pt know that per rad report, the blood vessels in her head and neck appeared patent and would not be a cause of her symptoms. Thank you. MD Jayocb Manning Lorinda LPN 03/08/2023 1:56 PM Signed Phone call placed patient advised (see prior provider encounter) Patient verbalized understanding, agreed with plan of care. Ashley Devries LPN Allergies As of Date: 03/08/2023 Noted Allergy Reaction CODEINE 10/17/2002 Comments: [place] vomitting FLOXIN (OFLOXACIN) 04/18/2006 Comments: depression IMITREX (SUMATRIPTAN SUCCINATE) 04/18/2006 Comments: sweating, drop in BP MORPHINE 10/17/2002 Comments: [place] vomitting OPIOIDS-MEPERIDINE AND RELATED 10/17/2002 Comments: [place] vomitting SULFA (SULFONAMIDE ANTIBIOTICS) 10/17/2002 Comments: [place] vomtting [id number] ANTIMIGRAINE DUMAXM2610/17/2002 Comments: heart palpitations Date Reviewed: 03/01/2023 Reviewed by: Jonelle Walker RT(R) - Fully Assessed Reason for Visit: Results [95] Prescriptions as of 03/08/2023 - carBAMazepine (TEGRETOL) 200 mg tablet TAKE 1/2 TABLET BY MOUTH IN THE MORNING AND 1.5 TABLETS IN THE EVENING - verapamil SR (CALAN SR) 240 mg CR tablet Take 1 tablet by mouth once daily. - alendronate (FOSAMAX) 70 mg tablet Take 70 mg by mouth one time a week. In AM with cup of water on empty stomach. Nothing else by mouth and stay upright for 30 min. - dexamethasone (DECADRON) 0.5 mg/5 mL Take 2 mg by mouth every 12 hours. - Clobetasol Propionate 0.05 % gel Apply to affected area. - omeprazole (PRILOSEC) 20 mg capsule - meloxicam (MOBIC) 15 mg tablet Take 1 tablet by mouth once daily. for pain. Take with food. - rosuvastatin (CRESTOR) 10 mg tablet Take 1 tablet by mouth once daily. - Omeprazole 40 mg capsule Take 1 capsule by mouth once daily. - tacrolimus (PROTOPIC) 0.1 % ointment Apply 1 application to affected area twice daily as needed. - medroxyPROGESTERone (PROVERA, CYCRIN) 10 mg tablet Take once daily for 14 days every 2-3 months - Estradiol (ESTRACE) 0.5 mg tablet Take 1 tablet by mouth once daily. - pyridoxine (VITAMIN B-6) 100 mg tablet Take 1 tablet by mouth once daily. - CALCIUM CARBONATE/VITAMIN D3 (VITAMIN D-3 ORAL) Take by mouth. - triamcinolone 0.1 % paste by DENTAL route twice daily. 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 ESOPHAGEAL REFLUX [K21.9] 02/02/2005 Migraine without aura [G43.009] 02/02/2005 SOMNOLENCE [R40.4] 01/03/2006 03/17/2016 SPINAL STENOSIS-LUMBAR [M48.061] 04/21/2006 PERS HX COLONIC POLYPS [Z86.010] 04/19/2007 DIARRHEA NOS [R19.7] 04/19/2007 UNSP ABNORMAL MAMMOGRAM [R92.8] 05/16/2007 LUMBAGO [M54.50] 02/19/2008 CERVICALGIA [M54.2] 02/21/2008 Postmenopausal Atrophic Vaginitis [N95.2] 05/12/2009 Symptomatic Menopausal or Female Climacteric St*05/12/2009 Urgency of urination [R39.15] 05/12/2009 05/29/2010 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] 10/14/2009 Lichen planus [L43.9] 03/17/2010 Postmenopausal bleeding [N95.0] 07/06/2011 03/14/2012 Hyperlipidemia [E78.5] 08/26/2015 Dizziness [R42] 12/01/2022 Unsteadiness [R26.81] 12/01/2022 Encounter Status:Closed by ASHLEY DEVRIES LPN on 03/08/23 [facility] Basophil percentageOrdered B y: Magalys Mcclure on 03-03-2023 Chloride [Moles/Vol] 97 mmol/L 98-107 [facility] Glucose [Mass/Vol] 83 mg/dL 74-106 [facility] Potassium [Moles/Vol] 3.7 mmol/L 3.5-5.1 [facility] Sodium [Moles/Vol] 130 mmol/L 136-145 [facility] Laboratory - Chemistry and C hemistry - challengeOrdered By: Magalys Mcclure on 03-03-2023 CO2 [Moles/Vol] 27.0 mmol/L 21.0-32.0 [facility] Urea nitrogen/Creatinine [Mass ratio] 12.8 mg/mg 10- [facility] No Panel InformationOrdered By: Magalys Mcclure on 03-03-2023 Estimated GFR (MDRD) Amer 117 mL/min >60 [facility] Comment on above: GFR Calc Estimated GFR (MDRD) Non-Af Amer 96 mL/min >60 [facility] Comment on above: Non- GFR Calc No Panel Informationon 03-03 [facility] Serum or plasma calcium julius urement (mass/volume)Ordered By: Magalys Mcclure on 03-03-2023 Calcium [Mass/Vol] 8.8 mg/dL 8.5-10.1 [facility] Serum or plasma creatinine m easurement (mass/volume)Ordered By: Magalys Mcclure on 03-03-2023 Creatinine [Mass/Vol] 0.62 mg/dL 0.55-1.02 [facility] Comment on above: The validity of the calculated GFR & GFRAA in patients over 70 years has not been determined. Clinical correlation is essential. Serum or plasma urea nitroge n measurement (mass/volume)Ordered By: Magalys Mcclure on 03-03-2023 Urea nitrogen [Mass/Vol] 8 mg/dL 7-18 [facility] Thin prep Papanicolaou smear with manual screeningOrdered By: Magalys Mcclure on 03-03-2023 Thin prep Papanicolaou smear with manual screening 6 5-15 [facility] CARBAM/TEGRETOL Riana 02-22-20 23 carBAMazepine free [Mass/Vol] 2.4 ug/mL 0.8 - 2.4 ug/mL [facility] Absolute lymphocyte countOrd ered By: Magalys Mcclure on 02-18-2023 Lymphocytes Auto (Unsp spec) [#/Vol] 1.05 10*3/uL 0.83-4.51 [facility] Basophil percentageOrdered B y: Magalys Mcclure on 02-18-2023 Basophils/100 WBC (Bld) 0.6 % 0-1 [facility] Bilirubin [Mass/Vol] 0.30 mg/dL 0.20-1.00 [facility] Comment on above: For patients on eltr ombopag therapy, use of Dimension [place] TBIL is not recommended. Chloride [Moles/Vol] 96 mmol/L 98-107 [facility] Cholesterol [Mass/Vol] 175 mg/dL <200 [facility] Comment on above: <200 mg/dL Desirable 200-240 mg/dL Borderline >240 mg/dL High Risk Eosinophils/100 WBC (Bld) 1.7 % 0-5 [facility] Glucose [Mass/Vol] 112 mg/dL 74-106 [facility] Comment on above: Fasting Glucose resu lt from 100 to 125 mg/dL suggests IMPAIRED HOMEOSTASIS per A.D.A. criteria. Neutrophils (Bld) [#/Vol] 4.5 10*3/uL 2.0-7.7 [facility] Neutrophils/100 WBC (Bld) 70.1 % 47-70 [facility] Potassium [Moles/Vol] 4.1 mmol/L 3.5-5.1 [facility] Protein [Mass/Vol] 7.3 g/dL 6.4-8.2 [facility] Sodium [Moles/Vol] 129 mmol/L 136-145 [facility] Triglyceride [Mass/Vol] 146 mg/dL <199 [facility] Comment on above: The drugs N-Acetylcy steine and Metamizole may falsely depress this assay.Serum Triglycerides Reference Interval Normal <150 mg/dL Borderline high 150 - 199 mg/dL High 200 - 499 mg/dL Very High > or = 500 mg/dL WBC (Bld) [#/Vol] 6.4 10*3/uL 4.4-11.0 [facility] Blood erythrocytes count (nu mber/volume)Ordered By: Magalys Mcclure on 02-18-2023 RBC (Bld) [#/Vol] 4.11 10*6/uL 4.2-5.4 [facility] Blood hemoglobin measurement (mass/volume)Ordered By: Magalys Mcclure on 02-18-2023 Hemoglobin (Bld) [Mass/Vol] 13.9 g/dL 12.0-15.0 [facility] Blood lymphocytes/100 leukoc ytesOrdered By: Magalys Mcclure on 02-18-2023 Lymphocytes/100 WBC (Bld) 16.4 % 19-41 [facility] Blood monocytes/100 leukocyt esOrdered By: Magalys Mcclure on 02-18-2023 Monocytes/100 WBC (Bld) 10.6 % 0-10 [facility] Blood platelet mean volumeOr dered By: Magalys Mcclure on 02-18-2023 Platelet mean volume (Bld) [Entitic vol] 8.3 fL 6.2-12.0 [facility] Determination of erythrocyte mean corpuscular volume (MCV)Ordered By: Magalys Mcclure on 02-18-2023 MCV (RBC) [Entitic vol] 98.8 fL 81-99 [facility] Hematocrit Auto (Bld) [Volum e fraction]Ordered By: Magalys Mcclure on 02-18-2023 Hematocrit (Bld) [Volume fraction] 40.6 % 37-47 [facility] Laboratory - Chemistry and C hemistry - challengeOrdered By: Magalys Mcclure on 02-18-2023 ALP [Catalytic activity/Vol] 62 U/L 45-117 [facility] ALT [Catalytic activity/Vol] 25 U/L 13-56 [facility] CO2 [Moles/Vol] 28.0 mmol/L 21.0-32.0 [facility] Globulin (S) [Mass/Vol] 3.5 g/dL 2.2-4.2 [facility] Urea nitrogen/Creatinine [Mass ratio] 17.3 mg/mg 10-20 [facility] Laboratory - Hematology and Cell countsOrdered By: Magalys Mcclure on 02-18-2023 Erythrocyte distribution width (RBC) [Entitic vol] 42.5 fL 35.1-43.9 [facility] Erythrocyte distribution width (RBC) [Ratio] 11.7 % 11.6-14.6 [facility] Immature granulocytes/100 WBC (Bld) 0.600 % 0.0-0.9 [facility] Comment on above: IG% - Immature Granu locytes (promyelocytes, myelocytes and metamyelocytes) > 1% indicates that a LEFT SHIFT is Present. MCH (RBC) [Entitic mass] 33.8 pg 27.0-32.0 [facility] Nucleated RBC/100 WBC (Bld) [Ratio] 0 % 0-5 [facility] MCHC Auto (RBC) [Mass/Vol]Or dered By: Magalys Mcclure on 02-18-2023 MCHC (RBC) [Mass/Vol] 34.2 g/dL 32-36 [facility] No Panel InformationOrdered By: Magalys Mcclure on 02-18-2023 Estimated GFR (MDRD) Amer 94 mL/min >60 [facility] Comment on above: GFR Calc Estimated GFR (MDRD) Non-Af Amer 78 mL/min >60 [facility] Comment on above: Non- GFR Calc Vitamin D 25-Hydroxy 43.7 ng/mL [facility] Comment on above: Vitamin D 25(OH) Sta tus Range Deficiency <20 ng/mL (50nmol/L) Insufficiency 20 - 30 ng/mL (50 - 75 nmol/L) Sufficiency 30 - 100 ng/mL (75 - 250 nmol/L) Toxicity >100 ng/mL (>250 nmol/L) Platelets bldOrdered By: Kojo Mcclure on 02-18-2023 Platelets (Bld) [#/Vol] 308 10*3/uL 150-450 [facility] Serum or plasma albumin julius urement (mass/volume)Ordered By: Magalys Mcclure on 02-18-2023 Albumin [Mass/Vol] 3.8 g/dL 3.2-5.0 [facility] Serum or plasma albumin/glob ulin mass ratioOrdered By: Magalys Mcclure on 02-18-2023 Albumin/Globulin [Mass ratio] 1.1 {ratio} 0.9-2.4 [facility] Serum or plasma calcium julius urement (mass/volume)Ordered By: Magalys Mcclure on 02-18-2023 Calcium [Mass/Vol] 9.1 mg/dL 8.5-10.1 [facility] Serum or plasma cholesterol in HDL measurement (mass/volume)Ordered By: Magalys Mcclure on 02-18-2023 Cholesterol in HDL [Mass/Vol] 76 mg/dL >40 [facility] Comment on above: The drugs N-Acetylcy steine and Metamizole may falsely depress this assay. Reference Range HDL <40 mg/dL Low HDL Cholesterol HDL >or= 60 mg/dL High HDL Cholesterol Serum or plasma cholesterol in VLDL measurement (mass/volume)Ordered By: Magalys Mcclure on 02-18-2023 Cholesterol in VLDL [Mass/Vol] 29 mg/dL 5-40 [facility] Serum or plasma creatinine m easurement (mass/volume)Ordered By: Magalys Mcclure on 02-18-2023 Creatinine [Mass/Vol] 0.75 mg/dL 0.55-1.02 [facility] Comment on above: The validity of the calculated GFR & GFRAA in patients over 70 years has not been determined. Clinical correlation is essential. Serum or plasma low density lipoprotein (LDL) cholesterol measurement (mass/volume)Ordered By: Magalys Mcclure on 02-18-2023 Cholesterol in LDL [Mass/Vol] 70 mg/dL 0-130 [facility] Serum or plasma urea nitroge n measurement (mass/volume)Ordered By: Magalys Mcclure on 02-18-2023 Urea nitrogen [Mass/Vol] 13 mg/dL 7-18 [facility] Thin prep Papanicolaou smear with manual screeningOrdered By: Magalys Mcclure on 02-18-2023 Thin prep Papanicolaou smear with manual screening 20 U/L 15-37 [facility] Thin prep Papanicolaou smear with manual screening 5 5-15 [facility] No Panel Informationon 11-29 [facility] Absolute lymphocyte countOrd ered By: Dr. Mcclure on 06-29-2022 Lymphocytes Auto (Unsp spec) [#/Vol] 1.13 10*3/uL 0.83-4.51 [facility] Basophil percentageOrdered B y: Dr. Mcclure on 06-29-2022 Basophils/100 WBC (Bld) 0.7 % 0-1 [facility] Bilirubin [Mass/Vol] 0.30 mg/dL 0.20-1.00 [facility] Comment on above: For patients on eltr ombopag therapy, use of Dimension [place] TBIL is not recommended. Chloride [Moles/Vol] 100 mmol/L 98-107 [facility] Cholesterol [Mass/Vol] 185 mg/dL <200 [facility] Comment on above: <200 mg/dL Desirable 200-240 mg/dL Borderline >240 mg/dL High Risk Eosinophils/100 WBC (Bld) 2.7 % 0-5 [facility] Glucose [Mass/Vol] 87 mg/dL 74-106 [facility] Neutrophils (Bld) [#/Vol] 2.7 10*3/uL 2.0-7.7 [facility] Neutrophils/100 WBC (Bld) 61.2 % 47-70 [facility] Potassium [Moles/Vol] 4.4 mmol/L 3.5-5.1 [facility] Protein [Mass/Vol] 7.1 g/dL 6.4-8.2 [facility] Sodium [Moles/Vol] 134 mmol/L 136-145 [facility] Triglyceride [Mass/Vol] 300 mg/dL <199 [facility] Comment on above: The drugs N-Acetylcy steine and Metamizole may falsely depress this assay.Serum Triglycerides Reference Interval Normal <150 mg/dL Borderline high 150 - 199 mg/dL High 200 - 499 mg/dL Very High > or = 500 mg/dL WBC (Bld) [#/Vol] 4.5 10*3/uL 4.4-11.0 [facility] Blood erythrocytes count (nu mber/volume)Ordered By: Dr. Mcclure on 06-29-2022 RBC (Bld) [#/Vol] 4.05 10*6/uL 4.2-5.4 [facility] Blood hemoglobin measurement (mass/volume)Ordered By: Dr. Mcclure on 06-29-2022 Hemoglobin (Bld) [Mass/Vol] 13.9 g/dL 12.0-15.0 [facility] Blood lymphocytes/100 leukoc ytesOrdered By: Dr. Mcclure on 06-29-2022 Lymphocytes/100 WBC (Bld) 25.2 % 19-41 [facility] Blood monocytes/100 leukocyt esOrdered By: Dr. Mcclure on 06-29-2022 Monocytes/100 WBC (Bld) 10.0 % 0-10 [facility] Blood platelet mean volumeOr dered By: Dr. Mcclure on 06-29-2022 Platelet mean volume (Bld) [Entitic vol] 9.3 fL 6.2-12.0 [facility] Determination of erythrocyte mean corpuscular volume (MCV)Ordered By: Dr. Mcclure on 06-29-2022 MCV (RBC) [Entitic vol] 99.8 fL 81-99 [facility] Hematocrit Auto (Bld) [Volum e fraction]Ordered By: Dr. Mcclure on 06-29-2022 Hematocrit (Bld) [Volume fraction] 40.4 % 37-47 [facility] Laboratory - Chemistry and C hemistry - challengeOrdered By: Dr. Mcclure on 06-29-2022 ALP [Catalytic activity/Vol] 67 U/L 45-117 [facility] ALT [Catalytic activity/Vol] 25 U/L 13-56 [facility] CO2 [Moles/Vol] 25.0 mmol/L 21.0-32.0 [facility] Cobalamin (Vitamin B12) [Mass/Vol] 651 pg/mL 211-911 [facility] Free T4 [Mass/Vol] 0.76 ng/dL 0.76-1.46 [facility] Globulin (S) [Mass/Vol] 3.3 g/dL 2.2-4.2 [facility] Urea nitrogen/Creatinine [Mass ratio] 23.7 mg/mg 10-20 [facility] Laboratory - Hematology and Cell countsOrdered By: Dr. Mcclure on 06-29-2022 Erythrocyte distribution width (RBC) [Entitic vol] 41.1 fL 35.1-43.9 [facility] Erythrocyte distribution width (RBC) [Ratio] 11.2 % 11.6-14.6 [facility] Immature granulocytes/100 WBC (Bld) 0.200 % 0.0-0.9 [facility] Comment on above: IG% - Immature Granu locytes (promyelocytes, myelocytes and metamyelocytes) > 1% indicates that a LEFT SHIFT is Present. MCH (RBC) [Entitic mass] 34.3 pg 27.0-32.0 [facility] Nucleated RBC/100 WBC (Bld) [Ratio] 0 % 0-5 [facility] MCHC Auto (RBC) [Mass/Vol]Or dered By: Dr. Mcclure on 06-29-2022 MCHC (RBC) [Mass/Vol] 34.4 g/dL 32-36 [facility] No Panel InformationOrdered By: Dr. Mcclure on 06-29-2022 Estimated GFR (MDRD) Amer 93 mL/min >60 [facility] Comment on above: GFR Calc Estimated GFR (MDRD) Non-Af Amer 77 mL/min >60 [facility] Comment on above: Non- GFR Calc Thyroid Stimulating Hormone (TSH) 2.16 uIU/mL 0.358-3.74 [facility] Vitamin D 25-Hydroxy 37.6 ng/mL [facility] Comment on above: Vitamin D 25(OH) Sta tus Range Deficiency <20 ng/mL (50nmol/L) Insufficiency 20 - 30 ng/mL (50 - 75 nmol/L) Sufficiency 30 - 100 ng/mL (75 - 250 nmol/L) Toxicity >100 ng/mL (>250 nmol/L) Platelets bldOrdered By: Dr. Mcclure on 06-29-2022 Platelets (Bld) [#/Vol] 286 10*3/uL 150-450 [facility] Serum or plasma albumin julius urement (mass/volume)Ordered By: Dr. Mcclure on 06-29-2022 Albumin [Mass/Vol] 3.8 g/dL 3.2-5.0 [facility] Serum or plasma albumin/glob ulin mass ratioOrdered By: Dr. Mcclure on 06-29-2022 Albumin/Globulin [Mass ratio] 1.2 {ratio} 0.9-2.4 [facility] Serum or plasma calcium julius urement (mass/volume)Ordered By: Dr. Mcclure on 06-29-2022 Calcium [Mass/Vol] 9.1 mg/dL 8.5-10.1 [facility] Serum or plasma cholesterol in HDL measurement (mass/volume)Ordered By: Dr. Mcclure on 06-29-2022 Cholesterol in HDL [Mass/Vol] 67 mg/dL >40 [facility] Comment on above: The drugs N-Acetylcy steine and Metamizole may falsely depress this assay. Reference Range HDL <40 mg/dL Low HDL Cholesterol HDL >or= 60 mg/dL High HDL Cholesterol Serum or plasma cholesterol in VLDL measurement (mass/volume)Ordered By: Dr. Mcclure on 06-29-2022 Cholesterol in VLDL [Mass/Vol] 60 mg/dL 5-40 [facility] Serum or plasma creatinine m easurement (mass/volume)Ordered By: Dr. Mcclure on 06-29-2022 Creatinine [Mass/Vol] 0.76 mg/dL 0.55-1.02 [facility] Comment on above: The validity of the calculated GFR & GFRAA in patients over 70 years has not been determined. Clinical correlation is essential. Serum or plasma low density lipoprotein (LDL) cholesterol measurement (mass/volume)Ordered By: Dr. Mcclure on 06-29-2022 Cholesterol in LDL [Mass/Vol] 58 mg/dL 0-130 [facility] Serum or plasma urea nitroge n measurement (mass/volume)Ordered By: Dr. Mcclure on 06-29-2022 Urea nitrogen [Mass/Vol] 18 mg/dL 7-18 [facility] Thin prep Papanicolaou smear with manual screeningOrdered By: Dr. Mcclure on 06-29-2022 Thin prep Papanicolaou smear with manual screening 24 U/L 15-37 [facility] Thin prep Papanicolaou smear with manual screening 9 5-15 [facility] Basophil percentageOrdered B y: Dr. Mcclure on 04-14-2022 Bilirubin [Mass/Vol] 0.40 mg/dL 0.20-1.00 [facility] Comment on above: For patients on eltr ombopag therapy, use of Dimension [place] TBIL is not recommended. Chloride [Moles/Vol] 99 mmol/L 98-107 [facility] Glucose [Mass/Vol] 92 mg/dL 74-106 [facility] Potassium [Moles/Vol] 4.0 mmol/L 3.5-5.1 [facility] Protein [Mass/Vol] 6.9 g/dL 6.4-8.2 [facility] Sodium [Moles/Vol] 133 mmol/L 136-145 [facility] Laboratory - Chemistry and C hemistry - challengeOrdered By: Dr. Mcclure on 04-14-2022 ALP [Catalytic activity/Vol] 67 U/L 45-117 [facility] ALT [Catalytic activity/Vol] 25 U/L 13-56 [facility] CO2 [Moles/Vol] 30.0 mmol/L 21.0-32.0 [facility] Globulin (S) [Mass/Vol] 3.4 g/dL 2.2-4.2 [facility] Urea nitrogen/Creatinine [Mass ratio] 26.9 mg/mg 10-20 [facility] No Panel InformationOrdered By: Dr. Mcclure on 04-14-2022 Estimated GFR (MDRD) Amer 90 mL/min >60 [facility] Comment on above: GFR Calc Estimated GFR (MDRD) Non-Af Amer 75 mL/min >60 [facility] Comment on above: Non- GFR Calc Vitamin D 25-Hydroxy 41.9 ng/mL [facility] Comment on above: Vitamin D 25(OH) Sta tus Range Deficiency <20 ng/mL (50nmol/L) Insufficiency 20 - 30 ng/mL (50 - 75 nmol/L) Sufficiency 30 - 100 ng/mL (75 - 250 nmol/L) Toxicity >100 ng/mL (>250 nmol/L) Serum or plasma albumin julius urement (mass/volume)Ordered By: Dr. Mccluer on 04-14-2022 Albumin [Mass/Vol] 3.5 g/dL 3.2-5.0 [facility] Serum or plasma albumin/glob ulin mass ratioOrdered By: Dr. Mcclure on 04-14-2022 Albumin/Globulin [Mass ratio] 1.0 {ratio} 0.9-2.4 [facility] Serum or plasma calcium julius urement (mass/volume)Ordered By: Dr. Mcclure on 04-14-2022 Calcium [Mass/Vol] 9.1 mg/dL 8.5-10.1 [facility] Serum or plasma creatinine m easurement (mass/volume)Ordered By: Dr. Mcclure on 04-14-2022 Creatinine [Mass/Vol] 0.78 mg/dL 0.55-1.02 [facility] Comment on above: The validity of the calculated GFR & GFRAA in patients over 70 years has not been determined. Clinical correlation is essential. Serum or plasma urea nitroge n measurement (mass/volume)Ordered By: Dr. Mcclure on 04-14-2022 Urea nitrogen [Mass/Vol] 21 mg/dL 7-18 [facility] Thin prep Papanicolaou smear with manual screeningOrdered By: Dr. Mcclure on 04-14-2022 Thin prep Papanicolaou smear with manual screening 24 U/L 15-37 [facility] Thin prep Papanicolaou smear with manual screening 4 5-15 [facility] OBSOLETEon 06-01-2021 OBSOLETE Refill (JAVED) EMILEKATRINA ([id number]) 1940 F Date Time Provider Department 06/01/21 CHRISTIAN CORBIN, AB BURT During your visit today, we recorded the following information about you: Vinny Stanley 06/01/2021 2:42 PM Signed Pharmacy faxed a request for the following refill(s): Pending Prescriptions Disp Refills VERAPAMIL ER (SR) 240 MG TABLET,EXTENDED RELEASE 90 tablet 3 Sig: TAKE 1 TABLET BY MOUTH EVERY DAY ROMINA: Yes Please review and advise for return fax. Vinny Stanley Allergies As of Date: 06/01/2021 Noted Allergy Reaction CODEINE 10/17/2002 Comments: nasea vomitting FLOXIN (OFLOXACIN) 04/18/2006 Comments: depression IMITREX (SUMATRIPTAN SUCCINATE) 04/18/2006 Comments: sweating, drop in BP MORPHINE 10/17/2002 Comments: nasea vomitting OPIOIDS-MEPERIDINE AND RELATED 10/17/2002 Comments: nasea vomitting SULFA (SULFONAMIDE ANTIBIOTICS) 10/17/2002 Comments: nasea vomtting [id number] ANTIMIGRAINE [id number]/17/2002 Comments: heart palpitations Date Reviewed: 09/22/2020 Reviewed by: Rose ([facility]) Bijan - Fully Assessed Reason for Visit: Refill Request [94] Order(s):verapamil SR (CALAN SR, ISOPTIN SR) 240 mg CR tabletTAKE 1 TABLET BY MOUTH EVERY DAYDisp: 90 tabletRfl: 3 Prescriptions as of 06/01/2021 - verapamil SR (CALAN SR, ISOPTIN SR) 240 mg CR tablet TAKE 1 TABLET BY MOUTH EVERY DAY - carBAMazepine (TEGRETOL) 200 mg tablet TAKE 1/2 TABLET IN THE MORNING AND 1 AND 1/2 TABLETS IN THE EVENING - dexamethasone (DECADRON) 0.5 mg/5 mL Take 2 mg by mouth every 12 hours. - Clobetasol Propionate 0.05 % gel Apply to affected area. - verapamil SR (CALAN SR, ISOPTIN SR) 240 mg CR tablet (Discontinued) Take 1 tablet by mouth once daily. - omeprazole (PRILOSEC) 20 mg capsule - meloxicam (MOBIC) 15 mg tablet Take 1 tablet by mouth once daily. for pain. Take with food. - rosuvastatin (CRESTOR) 10 mg tablet Take 1 tablet by mouth once daily. - Omeprazole 40 mg capsule Take 1 capsule by mouth once daily. - tacrolimus (PROTOPIC) 0.1 % ointment Apply 1 application to affected area twice daily as needed. - medroxyPROGESTERone (PROVERA, CYCRIN) 10 mg tablet Take once daily for 14 days every 2-3 months - Estradiol (ESTRACE) 0.5 mg tablet Take 1 tablet by mouth once daily. - pyridoxine (VITAMIN B-6) 100 mg tablet Take 1 tablet by mouth once daily. - CALCIUM CARBONATE/VITAMIN D3 (VITAMIN D-3 ORAL) Take by mouth. - triamcinolone 0.1 % paste by DENTAL route twice daily. - multivitamins w-iron(DAILY MULTIPLE VITAMINS WITH IRON TAB) take one (1) tablet daily - BETAMETHASONE, AUGMENTED 0.05 % TOPICAL GEL apply on erosions on mouth 2-3 times a day as needed Problem List As Of Date 06/01/2021 Noted Resolved HYPERLIPIDEMIA NEC/NOS [E78.5] 02/02/2005 08/26/2015 Generalized convulsive epilepsy (HCC) [G40.309] 02/02/2005 ESOPHAGEAL REFLUX [K21.9] 02/02/2005 Migraine without aura [G43.009] 02/02/2005 SOMNOLENCE [R40.4] 01/03/2006 03/17/2016 SPINAL STENOSIS-LUMBAR [M48.061] 04/21/2006 PERS HX COLONIC POLYPS [Z86.010] 04/19/2007 DIARRHEA NOS [R19.7] 04/19/2007 UNSP ABNORMAL MAMMOGRAM [R92.8] 05/16/2007 LUMBAGO [M54.50] 02/19/2008 CERVICALGIA [M54.2] 02/21/2008 Postmenopausal Atrophic Vaginitis [N95.2] 05/12/2009 Symptomatic Menopausal or Female Climacteric St*05/12/2009 Urgency of urination [R39.15] 05/12/2009 05/29/2010 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] 10/14/2009 Lichen planus [L43.9] 03/17/2010 Postmenopausal bleeding [N95.0] 07/06/2011 03/14/2012 Hyperlipidemia [E78.5] 08/26/2015 Prescriptions ordered this encounter Disp Refills Start End VERAPAMIL ER (SR) 240 MG TABLET,EXTE* 90 t* 3 06/01/2021 Sig: TAKE 1 TABLET BY MOUTH EVERY DAY Medications Discontinued During This Encounter Prescriptions - verapamil SR (CALAN SR, ISOPTIN SR) 240 mg CR tablet (Discontinued) TAKE 1 TABLET BY MOUTH EVERY DAY Encounter Status:Closed by AB SHAFFER on 06/01/21 [facility] OBSOLETEon 04-17-2021 OBSOLETE Refill (NEURBA) KATRINA MANCINI ([id number]) 1940 F Date Time Provider Department 04/17/21 AB SHAFFER JR NEURBA During your visit today, we recorded the following information about you: Vinny Stanley 04/17/2021 11:09 AM Signed Patient phones requesting refills as follows: Pending Prescriptions Disp Refills CARBAMAZEPINE 200 MG TABLET 180 tablet 1 Sig: TAKE 1/2 TABLET IN THE MORNING AND 1 AND 1/2 TABLETS IN THE EVENING ROMINA: Yes Please review and advise. Vinny Stanley Allergies As of Date: 04/17/2021 Noted Allergy Reaction CODEINE 10/17/2002 Comments: nasea vomitting FLOXIN (OFLOXACIN) 04/18/2006 Comments: depression IMITREX (SUMATRIPTAN SUCCINATE) 04/18/2006 Comments: sweating, drop in BP MORPHINE 10/17/2002 Comments: nasea vomitting OPIOIDS-MEPERIDINE AND RELATED 10/17/2002 Comments: nasea vomitting SULFA (SULFONAMIDE ANTIBIOTICS) 10/17/2002 Comments: nasea vomtting [id number] ANTIMIGRAINE [id number]/17/2002 Comments: heart palpitations Date Reviewed: 09/22/2020 Reviewed by: Rose Kelly) Bijan - Fully Assessed Reason for Visit: Refill Request [94] Visit Diagnosis:Generalized convulsive epilepsy (HCC) [G40.309] Order(s):carBAMazepine (TEGRETOL) 200 mg tabletTAKE 1/2 TABLET IN THE MORNING AND 1 AND 1/2 TABLETS IN THE EVENINGDisp: 180 tabletRfl: 1 Prescriptions as of 04/17/2021 - carBAMazepine (TEGRETOL) 200 mg tablet TAKE 1/2 TABLET IN THE MORNING AND 1 AND 1/2 TABLETS IN THE EVENING - verapamil SR (CALAN SR, ISOPTIN SR) 240 mg CR tablet TAKE 1 TABLET BY MOUTH EVERY DAY - dexamethasone (DECADRON) 0.5 mg/5 mL Take 2 mg by mouth every 12 hours. - Clobetasol Propionate 0.05 % gel Apply to affected area. - verapamil SR (CALAN SR, ISOPTIN SR) 240 mg CR tablet (Discontinued) Take 1 tablet by mouth once daily. - omeprazole (PRILOSEC) 20 mg capsule - meloxicam (MOBIC) 15 mg tablet Take 1 tablet by mouth once daily. for pain. Take with food. - rosuvastatin (CRESTOR) 10 mg tablet Take 1 tablet by mouth once daily. - Omeprazole 40 mg capsule Take 1 capsule by mouth once daily. - tacrolimus (PROTOPIC) 0.1 % ointment Apply 1 application to affected area twice daily as needed. - medroxyPROGESTERone (PROVERA, CYCRIN) 10 mg tablet Take once daily for 14 days every 2-3 months - Estradiol (ESTRACE) 0.5 mg tablet Take 1 tablet by mouth once daily. - pyridoxine (VITAMIN B-6) 100 mg tablet Take 1 tablet by mouth once daily. - CALCIUM CARBONATE/VITAMIN D3 (VITAMIN D-3 ORAL) Take by mouth. - triamcinolone 0.1 % paste by DENTAL route twice daily. - multivitamins w-iron(DAILY MULTIPLE VITAMINS WITH IRON TAB) take one (1) tablet daily - BETAMETHASONE, AUGMENTED 0.05 % TOPICAL GEL apply on erosions on mouth 2-3 times a day as needed Problem List As Of Date 04/17/2021 Noted Resolved HYPERLIPIDEMIA NEC/NOS [E78.5] 02/02/2005 08/26/2015 Generalized convulsive epilepsy (HCC) [G40.309] 02/02/2005 ESOPHAGEAL REFLUX [K21.9] 02/02/2005 Migraine without aura [G43.009] 02/02/2005 SOMNOLENCE [R40.4] 01/03/2006 03/17/2016 SPINAL STENOSIS-LUMBAR [M48.061] 04/21/2006 PERS HX COLONIC POLYPS [Z86.010] 04/19/2007 DIARRHEA NOS [R19.7] 04/19/2007 UNSP ABNORMAL MAMMOGRAM [R92.8] 05/16/2007 LUMBAGO [M54.50] 02/19/2008 CERVICALGIA [M54.2] 02/21/2008 Postmenopausal Atrophic Vaginitis [N95.2] 05/12/2009 Symptomatic Menopausal or Female Climacteric St*05/12/2009 Urgency of urination [R39.15] 05/12/2009 05/29/2010 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] 10/14/2009 Lichen planus [L43.9] 03/17/2010 Postmenopausal bleeding [N95.0] 07/06/2011 03/14/2012 Hyperlipidemia [E78.5] 08/26/2015 Prescriptions ordered this encounter Disp Refills Start End CARBAMAZEPINE 200 MG TABLET 180 * 1 04/17/2021 Sig: TAKE 1/2 TABLET IN THE MORNING AND 1 AND 1/2 TABLETS IN THE EVENING Medications Discontinued During This Encounter Prescriptions - carBAMazepine (TEGRETOL) 200 mg tablet (Discontinued) TAKE 1/2 TABLET IN THE MORNING AND 1 AND 1/2 TABLETS IN THE EVENING Encounter Status:Closed by AB SHAFFER on 04/17/21 [facility] OBSOLETEon 10-31-2020 OBSOLETE Refill (NEURBA) KATRINA MANCINI ([id number]) 1940 F Date Time Provider Department 10/31/20 AB SHAFFER JR During your visit today, we recorded the following information about you: Nidhi Faria Lionel 11/05/2020 10:48 AM Signed Patient calling asking on the status of this. -Nidhi Faria Lionel Vinny Julianjamie 11/05/2020 11:36 AM Signed Pending Prescriptions Disp Refills CARBAMAZEPINE 200 MG TABLET 180 tablet 1 Sig: TAKE 1/2 TABLET IN THE MORNING AND 1 AND 1/2 TABLETS IN THE EVENING ROMINA: Yes Vinny Stanley 11/05/2020 1:50 PM Signed Pt informed Allergies As of Date: 10/31/2020 Noted Allergy Reaction CODEINE 10/17/2002 Comments: nasea vomitting FLOXIN (OFLOXACIN) 04/18/2006 Comments: depression IMITREX (SUMATRIPTAN SUCCINATE) 04/18/2006 Comments: sweating, drop in BP MORPHINE 10/17/2002 Comments: nasea vomitting OPIOIDS-MEPERIDINE AND RELATED 10/17/2002 Comments: nasea vomitting SULFA (SULFONAMIDE ANTIBIOTICS) 10/17/2002 Comments: nasea vomtting [id number] ANTIMIGRAINE [id number]/17/2002 Comments: heart palpitations Date Reviewed: 09/22/2020 Reviewed by: Rose ([facility]) Bijan - Fully Assessed Reason for Visit: Refill Request [94] Visit Diagnosis:Generalized convulsive epilepsy (HCC) [G40.309] Order(s):carBAMazepine (TEGRETOL) 200 mg tabletTAKE 1/2 TABLET IN THE MORNING AND 1 AND 1/2 TABLETS IN THE EVENINGDisp: 180 tabletRfl: 1 Prescriptions as of 10/31/2020 Sig: CARBAMAZEPINE 200 MG TABLET TAKE 1/2 TABLET IN THE MORNIN* VERAPAMIL ER (SR) 240 MG TABL* TAKE 1 TABLET BY MOUTH EVERY * DEXAMETHASONE 0.5 MG/5 ML ORA* Take 2 mg by mouth every 12 h* CLOBETASOL 0.05 % TOPICAL GEL Apply to affected area. X VERAPAMIL ER (SR) 240 MG TABL* Take 1 tablet by mouth once d* OMEPRAZOLE 20 MG CAPSULE,KEL* MELOXICAM 15 MG TABLET Take 1 tablet by mouth once d* ROSUVASTATIN 10 MG TABLET Take 1 tablet by mouth once d* OMEPRAZOLE 40 MG CAPSULE,KEL* Take 1 capsule by mouth once * Patient not taking: Reported on 04/04/2019 TACROLIMUS 0.1 % TOPICAL OINT* Apply 1 application to affect* MEDROXYPROGESTERONE 10 MG TAB* Take once daily for 14 days e* Patient not taking: Reported on 09/22/2020 ESTRADIOL 0.5 MG TABLET Take 1 tablet by mouth once d* PYRIDOXINE (VITAMIN B6) 100 M* Take 1 tablet by mouth once d* Patient not taking: Reported on 09/22/2020 VITAMIN D-3 ORAL Take by mouth. TRIAMCINOLONE ACETONIDE 0.1 %* by DENTAL route twice daily. * DAILY MULTIPLE VITAMINS WITH * take one (1) tablet daily * BETAMETHASONE, AUGMENTED 0.05* apply on erosions on mouth 2-* Problem List As Of Date 10/31/2020 Noted Resolved HYPERLIPIDEMIA NEC/NOS [E78.5] 02/02/2005 08/26/2015 Generalized convulsive epilepsy (HCC) [G40.309] 02/02/2005 ESOPHAGEAL REFLUX [K21.9] 02/02/2005 Migraine without aura [G43.009] 02/02/2005 SOMNOLENCE [R40.4] 01/03/2006 03/17/2016 SPINAL STENOSIS-LUMBAR [M48.061] 04/21/2006 PERS HX COLONIC POLYPS [Z86.010] 04/19/2007 DIARRHEA NOS [R19.7] 04/19/2007 UNSP ABNORMAL MAMMOGRAM [R92.8] 05/16/2007 LUMBAGO [M54.5] 02/19/2008 CERVICALGIA [M54.2] 02/21/2008 Postmenopausal Atrophic Vaginitis [N95.2] 05/12/2009 Symptomatic Menopausal or Female Climacteric St*05/12/2009 Urgency of urination [R39.15] 05/12/2009 05/29/2010 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] 10/14/2009 Lichen planus [L43.9] 03/17/2010 Postmenopausal bleeding [N95.0] 07/06/2011 03/14/2012 Hyperlipidemia [E78.5] 08/26/2015 Prescriptions ordered this encounter Disp Refills Start End CARBAMAZEPINE 200 MG TABLET 180 * 1 11/05/2020 Sig: TAKE 1/2 TABLET IN THE MORNING AND 1 AND 1/2 TABLETS IN THE EVENING Medications Discontinued During This Encounter Prescriptions - carBAMazepine (TEGRETOL) 200 mg tablet (Discontinued) TAKE 1/2 TABLET IN THE MORNING AND 1 AND 1/2 TABLETS IN THE EVENING Encounter Status:Closed by AB SHAFFER on 11/05/20 [facility] OBSOLETEon 08-23-2020 OBSOLETE Refill (NEAGAK) KATRINA MANCINI ([id number]) 1940 F Date Time Provider Department 08/23/20 NISHA BAR (MATERIAL CONTROL SUPERVISOR, RETAIL ADMINISTRATIVE ASSISTANT) NEAGATrinidad During your visit today, we recorded the following information about you: Tammy Sadler CMA 08/25/2020 8:58 AM Signed Pharmacy faxed requesting the following refill Refill(s) Requested: Pending Prescriptions Disp Refills VERAPAMIL ER (SR) 240 MG TABLET,EXTENDED RELEASE 90 tablet 3 Sig: TAKE 1 TABLET BY MOUTH EVERY DAY ROMINA: Yes ALLERGIES Allergen Reactions - Codeine nasea vomitting - Floxin [Ofloxacin] depression - Imitrex [Sumatripta* sweating, drop in BP - Morphine nasea vomitting - Opioids-Meperidine * nasea vomitting - Sulfa (Sulfonamide * nasea vomtting - Xavyavde-2-Ro2 Anti* heart palpitations (home) Last Visit date: Visit date not found Future appointment: Visit date not found The patients preferred pharmacy has been captured for this encounter? yes Request is for script(s) to be escript to pharmacy. JUDY Smalls [facility] 08/26/2020 2:53 PM Signed Patient called our office and stated that she is completely out of her medication and needs a refill Allergies As of Date: 08/23/2020 Noted Allergy Reaction CODEINE 10/17/2002 Comments: nasea vomitting FLOXIN (OFLOXACIN) 04/18/2006 Comments: depression IMITREX (SUMATRIPTAN SUCCINATE) 04/18/2006 Comments: sweating, drop in BP MORPHINE 10/17/2002 Comments: nasea vomitting OPIOIDS-MEPERIDINE AND RELATED 10/17/2002 Comments: nasea vomitting SULFA (SULFONAMIDE ANTIBIOTICS) 10/17/2002 Comments: nasea vomtting [id number] ANTIMIGRAINE [id number]/17/2002 Comments: heart palpitations Date Reviewed: 12/29/2019 Reviewed by: Ab Shaffer Jr. - Fully Assessed Reason for Visit: Refill Request [94] Cmt: Verapamil Reason For Visit History Recorded Order(s):verapamil SR (CALAN SR, ISOPTIN SR) 240 mg CR tabletTAKE 1 TABLET BY MOUTH EVERY DAYDisp: 90 tabletRfl: 3 Prescriptions as of 08/23/2020 Sig: VERAPAMIL ER (SR) 240 MG TABL* TAKE 1 TABLET BY MOUTH EVERY * CARBAMAZEPINE 200 MG TABLET TAKE 1/2 TABLET IN THE MORNIN* DEXAMETHASONE 0.5 MG/5 ML ORA* Take 2 mg by mouth every 12 h* CLOBETASOL 0.05 % TOPICAL GEL Apply to affected area. OMEPRAZOLE 20 MG CAPSULE,KEL* MELOXICAM 15 MG TABLET Take 1 tablet by mouth once d* ROSUVASTATIN 10 MG TABLET Take 1 tablet by mouth once d* OMEPRAZOLE 40 MG CAPSULE,KEL* Take 1 capsule by mouth once * Patient not taking: Reported on 04/04/2019 TACROLIMUS 0.1 % TOPICAL OINT* Apply 1 application to affect* MEDROXYPROGESTERONE 10 MG TAB* Take once daily for 14 days e* ESTRADIOL 0.5 MG TABLET Take 1 tablet by mouth once d* PYRIDOXINE (VITAMIN B6) 100 M* Take 1 tablet by mouth once d* VITAMIN D-3 ORAL Take by mouth. TRIAMCINOLONE ACETONIDE 0.1 %* by DENTAL route twice daily. * DAILY MULTIPLE VITAMINS WITH * take one (1) tablet daily * BETAMETHASONE, AUGMENTED 0.05* apply on erosions on mouth 2-* Problem List As Of Date 08/23/2020 Noted Resolved HYPERLIPIDEMIA NEC/NOS [E78.5] 02/02/2005 08/26/2015 Generalized convulsive epilepsy (HCC) [G40.309] 02/02/2005 ESOPHAGEAL REFLUX [K21.9] 02/02/2005 Migraine without aura [G43.009] 02/02/2005 SOMNOLENCE [R40.4] 01/03/2006 03/17/2016 SPINAL STENOSIS-LUMBAR [M48.061] 04/21/2006 PERS HX COLONIC POLYPS [Z86.010] 04/19/2007 DIARRHEA NOS [R19.7] 04/19/2007 UNSP ABNORMAL MAMMOGRAM [R92.8] 05/16/2007 LUMBAGO [M54.5] 02/19/2008 CERVICALGIA [M54.2] 02/21/2008 Postmenopausal Atrophic Vaginitis [N95.2] 05/12/2009 Symptomatic Menopausal or Female Climacteric St*05/12/2009 Urgency of urination [R39.15] 05/12/2009 05/29/2010 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] 10/14/2009 Lichen planus [L43.9] 03/17/2010 Postmenopausal bleeding [N95.0] 07/06/2011 03/14/2012 Hyperlipidemia [E78.5] 08/26/2015 Prescriptions ordered this encounter Disp Refills Start End VERAPAMIL ER (SR) 240 MG TABLET,EXTE* 90 t* 3 08/26/2020 Sig: TAKE 1 TABLET BY MOUTH EVERY DAY Medications Discontinued During This Encounter Prescriptions - verapamil SR (CALAN SR, ISOPTIN SR) 240 mg CR tablet (Discontinued) Take 1 tablet by mouth once daily. Encounter Status:Closed by AB SHAFFER on 08/26/20 [facility] OBSOLETEon 06-28-2020 OBSOLETE Refill (NEURBA) KATRINA MANCINI ([id number]) 1940 F Date Time Provider Department 06/28/20 AB SHAFFER JR During your visit today, we recorded the following information about you: Kirstyasha Castellanos MA 06/30/2020 12:34 PM Signed Pharmacy faxed requesting the following refill Refill(s) Requested: Pending Prescriptions Disp Refills CARBAMAZEPINE 200 MG TABLET 180 tablet 1 Sig: TAKE 1/2 TABLET IN THE MORNING AND 1 AND 1/2 TABLETS IN THE EVENING ROMINA: Yes ALLERGIES Allergen Reactions - Codeine nasea vomitting - Floxin [Ofloxacin] depression - Imitrex [Sumatripta* sweating, drop in BP - Morphine nasea vomitting - Opioids-Meperidine * nasea vomitting - Sulfa (Sulfonamide * nasea vomtting - Rbwxubug-5-Cj1 Anti* heart palpitations (home) Last Visit date: Visit date not found Future appointment: Visit date not found The patients preferred pharmacy has been captured for this encounter? yes Request is for script(s) to be escript to pharmacy. Kirstyasha Castellanos MA Allergies As of Date: 06/28/2020 Noted Allergy Reaction CODEINE 10/17/2002 Comments: nasea vomitting FLOXIN (OFLOXACIN) 04/18/2006 Comments: depression IMITREX (SUMATRIPTAN SUCCINATE) 04/18/2006 Comments: sweating, drop in BP MORPHINE 10/17/2002 Comments: nasea vomitting OPIOIDS-MEPERIDINE AND RELATED 10/17/2002 Comments: nasea vomitting SULFA (SULFONAMIDE ANTIBIOTICS) 10/17/2002 Comments: nasea vomtting PCVBARBP-[id number] ANTIMIGRAINE [id number]/17/2002 Comments: heart palpitations Date Reviewed: 12/29/2019 Reviewed by: Ab Shaffer Jr. - Fully Assessed Reason for Visit: Refill Request [94] Visit Diagnosis:Generalized convulsive epilepsy (HCC) [G40.309] Order(s):carBAMazepine (TEGRETOL) 200 mg tabletTAKE 1/2 TABLET IN THE MORNING AND 1 AND 1/2 TABLETS IN THE EVENINGDisp: 180 tabletRfl: 1 Prescriptions as of 06/28/2020 Sig: CARBAMAZEPINE 200 MG TABLET TAKE 1/2 TABLET IN THE MORNIN* DEXAMETHASONE 0.5 MG/5 ML ORA* Take 2 mg by mouth every 12 h* CLOBETASOL 0.05 % TOPICAL GEL Apply to affected area. VERAPAMIL ER (SR) 240 MG TABL* Take 1 tablet by mouth once d* OMEPRAZOLE 20 MG CAPSULE,KEL* MELOXICAM 15 MG TABLET Take 1 tablet by mouth once d* ROSUVASTATIN 10 MG TABLET Take 1 tablet by mouth once d* OMEPRAZOLE 40 MG CAPSULE,KEL* Take 1 capsule by mouth once * Patient not taking: Reported on 04/04/2019 TACROLIMUS 0.1 % TOPICAL OINT* Apply 1 application to affect* MEDROXYPROGESTERONE 10 MG TAB* Take once daily for 14 days e* ESTRADIOL 0.5 MG TABLET Take 1 tablet by mouth once d* PYRIDOXINE (VITAMIN B6) 100 M* Take 1 tablet by mouth once d* VITAMIN D-3 ORAL Take by mouth. TRIAMCINOLONE ACETONIDE 0.1 %* by DENTAL route twice daily. * DAILY MULTIPLE VITAMINS WITH * take one (1) tablet daily * BETAMETHASONE, AUGMENTED 0.05* apply on erosions on mouth 2-* Problem List As Of Date 06/28/2020 Noted Resolved HYPERLIPIDEMIA NEC/NOS [E78.5] 02/02/2005 08/26/2015 Generalized convulsive epilepsy (HCC) [G40.309] 02/02/2005 ESOPHAGEAL REFLUX [K21.9] 02/02/2005 Migraine without aura [G43.009] 02/02/2005 SOMNOLENCE [R40.4] 01/03/2006 03/17/2016 SPINAL STENOSIS-LUMBAR [M48.061] 04/21/2006 PERS HX COLONIC POLYPS [Z86.010] 04/19/2007 DIARRHEA NOS [R19.7] 04/19/2007 UNSP ABNORMAL MAMMOGRAM [R92.8] 05/16/2007 LUMBAGO [M54.5] 02/19/2008 CERVICALGIA [M54.2] 02/21/2008 Postmenopausal Atrophic Vaginitis [N95.2] 05/12/2009 Symptomatic Menopausal or Female Climacteric St*05/12/2009 Urgency of urination [R39.15] 05/12/2009 05/29/2010 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] 10/14/2009 Lichen planus [L43.9] 03/17/2010 Postmenopausal bleeding [N95.0] 07/06/2011 03/14/2012 Hyperlipidemia [E78.5] 08/26/2015 Prescriptions ordered this encounter Disp Refills Start End CARBAMAZEPINE 200 MG TABLET 180 * 1 06/30/2020 Sig: TAKE 1/2 TABLET IN THE MORNING AND 1 AND 1/2 TABLETS IN THE EVENING Medications Discontinued During This Encounter Prescriptions - carBAMazepine (TEGRETOL) 200 mg tablet (Discontinued) TAKE 1/2 TABLET IN THE MORNING AND 1 AND 1/2 TABLETS IN THE EVENING Encounter Status:Closed by AB SHAFFER on 06/30/20 Normal [facility] Mis. Teston 12-25-2019 [facility]. Test Result SEE BELOW Normal [facility] Comment on above: Result Comment: Hemo globin A1c 5.3 4.3-5.6 % [place] [employer] guidelines indicate that patients with HgbA1c in the range 5.7-6.4% are at increased risk for development of diabetes, and intervention by lifestyle modification may be beneficial. HgbA1c greater or equal to 6.5% is considered diagnostic of diabetes. Est. Average Glucose 105 mg/dL eAG: (Estimated average glucose) is a calculated value from HgbA1c and is customer field representative of the average blood glucose level in the last 2-3 month period. Performing Laboratory: [facility] [address] [place] [address] Performed By: #### G OX #### [address] [address] Protein Electrophoresis, Ser umon 12-25-2019 Albumin [Mass/Vol] 4.27 g/dL High 3.37-4.23 [facility] Comment on above: Performed By: #### S EPGX #### [facility] [address] [place], [place] [address] Alpha 1 Globulin 0.21 gm/dL Normal 0.18-0.31 [facility] Comment on above: Performed By: #### S EPGX #### [address] [address] Alpha 2 Globulin 0.82 gm/dL Normal 0.52-0.97 [facility] Comment on above: Performed By: #### S EPGX #### [facility] [address] [place], [place] [address] Beta Globulin 0.73 gm/dL Low 0.84-1.36 [facility] Comment on above: Performed By: #### S EPGX #### [facility] [address] [place], [place] [address] Gamma Globulin 0.86 gm/dL Normal 0.70-1.44 [facility] Comment on above: Performed By: #### S EPGX #### [facility] [address] [place] [address] Interpretation SEE BELOW Normal [facility] Comment on above: Result Comment: No d efinitive M protein is identified on protein electrophoresis. Performed By: #### S EPGX #### [facility] [address] [place] [address] M David Concentratn 0.00 gm/dL Normal 0.00 [facility] Comment on above: Performed By: #### S EPGX #### [facility] [address] [place] [address] Protein [Mass/Vol] 6.9 g/dL Normal 6.3-8.0 [facility] Comment on above: Performed By: #### S EPGX #### [address] [address] Protein [Mass/Vol] N/A Normal [facility] Comment on above: Performed By: #### S EPGX #### [place] [address] Staff Review SEE BELOW Normal [facility] Comment on above: Result Comment: Revi ewed by Tammy [place] ([id number]) Performing Laboratory: [facility] [address] [place] [address] Performed By: #### S EPGX #### [facility] [address] [place] [address] Misc. Teston 12-24-2019 [facility] Order Code HBA1C Normal [facility] Comment on above: Performed By: #### G OX #### [address] [place] [address] Test Name Hgb A1C Normal [facility] Comment on above: Performed By: #### G OX #### [place] [id number] Sed Rateon 12-22-2019 Sed Rate 7 mm/hr Normal 0-20 [facility] Comment on above: Performed By: #### E SR #### [place] [address] Free Thyroxineon 12-21-2019 Free T4 [Mass/Vol] 0.9 ng/dL Normal 0.9-1.7 [facility] Comment on above: Result Comment: Jelly ents taking a biotin dose of up to 5 mg/day should refrain from taking biotin for 4 hours prior to sample collection. Patients taking a biotin dose of 5 to 10 mg/day should refrain from taking biotin for 8 hours prior to sample collection. Patients taking a biotin dose > 10 mg/day should consult with their physician or the laboratory prior to having a sample taken. Clinicians should consider biotin interference as a source of error, when clinically suspicious of the laboratory result. Performed By: #### F T4A #### [place] [address] TSHon 12-21-2019 TSH Qn 2.580 uIU/mL Normal 0.270-4.200 [facility] Comment on above: Result Comment: Preg nohemi: 1st trimester:(9-12 weeks):0.180-2.900 uIU/mL 2nd trimester: 0.110-3.980 uIU/mL 3rd trimester: 0.480-4.710 uIU/mL Patients taking a biotin dose of up to 5 mg/day should refrain from taking biotin for 4 hours prior to sample collection. Patients taking a biotin dose of 5 to 10 mg/day should refrain from taking biotin for 8 hours prior to sample collection. Patients taking a biotin dose > 10 mg/day should consult with their physician or the laboratory prior to having a sample taken. Clinicians should consider biotin interference as a source of error, when clinically suspicious of the laboratory result. Performed By: #### T SH3 #### [place] [address] Vitamin B12on 12-21-2019 Cobalamin (Vitamin B12) [Mass/Vol] 567 pg/mL Normal [id number] [facility] Comment on above: Result Comment: Jelly ents taking a biotin dose of up to 5 mg/day should refrain from taking biotin for 4 hours prior to sample collection. Patients taking a biotin dose of 5 to 10 mg/day should refrain from taking biotin for 8 hours prior to sample collection. Patients taking a biotin dose > 10 mg/day should consult with their physician or the laboratory prior to having a sample taken. Clinicians should consider biotin interference as a source of error, when clinically suspicious of the laboratory result. Performed By: #### B 12 #### [facility] [address] [place] [address] Final Surgical Pathology Rep [facility] 05-30-2019 Final Surgical Pathology Report . Pathology Reports Accession: Collected Date/Time: Received Date/Time: Pathologist: [id number] 05/25/2019 09:56 EST 05/28/2019 10:43 EST MD NONA BABB Final Surgical Pathology Report DIAGNOSIS: A) COLON, BIOPSY: NO SPECIFIC PATHOLOGIC CHANGES. B) DISTAL TRANSVERSE COLON, BIOPSY: TUBULAR ADENOMA. C) SIGMOID COLON, BIOPSY: HYPERPLASTIC POLYP. COMMENT: [facility] - D# [id number] CLINICAL INFORMATION: Procedure: COLONOSCOPY WITH POLYPECTOMIES AND BIOPSIES Preoperative diagnosis: HISTORY OF COLON POLYPS Postoperative diagnosis: SAME SPECIMEN: A RANDOM COLON BIOPSY - R/O MICROSCOPIC COLITIS B DISTAL TRANSVERSE COLON POLYP C SIGMOID COLON POLYP GROSS DESCRIPTION: A. Received in formalin labeled random colon are several smith glistening soft tissues ranging from 0.3 to 0.8 cm. TS -1 B. Received in formalin labeled transverse colon polyp is a 0.5 cm smith glistening soft tissue. TS -1 C. Received in formalin labeled sigmoid polyp is a 0.6 cm smith glistening soft tissue. TS -1 Dictated by Moni DUNN ([facility] MICROSCOPIC DESCRIPTION: A,B&C) Slides reviewed. Electronically Signed by Pathology Report verified by [facility] Electronically signed by NONA BABB MD Sign out Date: 05/30/2019 16:51 Performing Lab: [facility], [address] [place] [id number] [place] [address] ([place]) Comment on above: Performed By: #### S PFR #### [place] [address] [place] [id number] Office Visit: est annualon 1 Documentation of current medications (procedure) Done Invalid Interpretation Code [facility] Fall risk assessment Yes Invalid Interpretation Code [facility] Tobacco smoking status NHIS Never Invalid Interpretation Code [facility] Tobacco smoking status NHIS Never smoker Invalid Interpretation Code [facility] Tobacco use CPHS Never smoker Invalid Interpretation Code [facility] Vital Signs Date Time Vital Sign Value Performing Clinician Faci lity 07-10-2024 08:50-0500 Body height 160.[address] Magalys Mcclure MD Work Phone: [facility] 07-10-2024 08:50-0500 Body mass index (BMI) [Ratio] 24.3 kg/m2 Dr. Magalys Mcclure MD Work Phone: [facility] 07-10-2024 08:50-0500 Body weight 62.[address] Magalys Mcclure MD Work Phone: [facility] 07-10-2024 08:50-0500 Diastolic blood pressure 59 mm[Hg] Dr. Magalys Mcclure MD Work Phone: [facility] 07-10-2024 08:50-0500 Heart rate 58 /min Dr. Magalys Mcclure MD Work Phone: [facility] 07-10-2024 08:50-0500 Respiratory rate 16 /min Dr. Magalys Mcclure MD Work Phone: [facility] 07-10-2024 08:50-0500 Systolic blood pressure 107 mm[Hg] Dr. Magalys Mcclure MD Work Phone: [facility] 05-24-2024 13:47-0500 Body mass index (BMI) [Ratio] 23.9 kg/m2 Dr. Magalys Mcclure MD Work Phone: [facility] 05-24-2024 13:47-0500 Body weight 61.[address] Magalys Mcclure MD Work Phone: [facility] 05-24-2024 13:47-0500 Diastolic blood pressure 70 mm[Hg] Dr. Magalys Mcclure MD Work Phone: [facility] 05-24-2024 13:47-0500 Systolic blood pressure 136 mm[Hg] Dr. Magalys Mcclure MD Work Phone: [facility] 03-02-2024 15:22-0400 Body mass index (BMI) [Ratio] 22.53 kg/m2 Ab Shaffer Jr., MD Work Phone: [facility] 03-02-2024 15:22-0400 Body weight 58.6 kg Ab Shaffer Jr., MD Work Phone: [facility] 03-02-2024 15:22-0400 Diastolic blood pressure 71 mm[Hg] Ab Shaffer Jr., MD Work Phone: [facility] 03-02-2024 15:22-0400 Heart rate 61 /min Ab Shaffer Jr., MD Work Phone: [facility] 03-02-2024 15:22-0400 SaO2% (BldA) [Mass fraction] 97 % Ab Shaffer Jr., MD Work Phone: [facility] 03-02-2024 15:22-0400 Systolic blood pressure 124 mm[Hg] Ab Shaffer Jr., MD Work Phone: [facility] 09-30-2023 10:38-0400 Body height 160.[address] Magalys Mcclure Work Phone: [facility] 09-30-2023 10:35-0400 Body mass index (BMI) [Ratio] 23.7 kg/m2 Dr. Magalys Mcclure Work Phone: [facility] 09-30-2023 10:35-0400 Body weight 60.[address] Magalys Mcclure Work Phone: [facility] 09-30-2023 10:35-0400 Diastolic blood pressure 71 mm[Hg] Dr. Magalys Mcclure Work Phone: [facility] 09-30-2023 10:35-0400 Systolic blood pressure 162 mm[Hg] Dr. Magalys Mcclure Work Phone: [facility] 08-01-2023 16:07-0500 Body weight 59.6 kg Ab Shaffer Jr., MD Work Phone: [facility] 08-01-2023 16:07-0500 Diastolic blood pressure 78 mm[Hg] Ab Shaffer Jr., MD Work Phone: [facility] 08-01-2023 16:07-0500 Heart rate 77 /min Ab Shaffer Jr., MD Work Phone: [facility] 08-01-2023 16:07-0500 Respiratory rate 16 /min Ab Shaffer Jr., MD Work Phone: [facility] 08-01-2023 16:07-0500 SaO2% (BldA) [Mass fraction] 97 % Ab Shaffer Jr., MD Work Phone: [facility] 08-01-2023 16:07-0500 Systolic blood pressure 136 mm[Hg] Ab Shaffer Jr., MD Work Phone: [facility] 04-14-2023 11:34-0400 Body height 160.[address] Magalys Mcclure Work Phone: [facility] 04-14-2023 11:34-0400 Body mass index (BMI) [Ratio] 23.6 kg/m2 Dr. Magalys Mcclure Work Phone: [facility] 04-14-2023 11:34-0400 Body weight 60.[address] Magalys Mcclure Work Phone: [facility] 04-14-2023 11:34-0400 Diastolic blood pressure 78 mm[Hg] Dr. Magalys Mcclure Work Phone: [facility] 04-14-2023 11:34-0400 Heart rate 81 /min Dr. Magalys Mcclure Work Phone: [facility] 04-14-2023 11:34-0400 Respiratory rate 16 /min Dr. Magalys Mcclure Work Phone: [facility] 04-14-2023 11:34-0400 Systolic blood pressure 145 mm[Hg] Dr. Magalys Mcclure Work Phone: [facility] 03-17-2023 13:53-0400 Body mass index (BMI) [Ratio] 23.4 kg/m2 Dr. Magalys Mcclure Work Phone: [facility] 03-17-2023 13:53-0400 Body weight 60.[address] Magalys Mcclure Work Phone: [facility] 03-17-2023 13:53-0400 Diastolic blood pressure 82 mm[Hg] Dr. Magalys Mcclure Work Phone: [facility] 03-17-2023 13:53-0400 Systolic blood pressure 158 mm[Hg] Dr. Magalys Mcclure Work Phone: [facility] 02-21-2023 11:38-0400 Body weight 60.24 kg Ab Shaffer Jr., MD Work Phone: [facility] 02-21-2023 11:38-0400 Diastolic blood pressure 81 mm[Hg] Ab Shaffer Jr., MD Work Phone: [facility] 02-21-2023 11:38-0400 Heart rate 76 /min Ab Shaffer Jr., MD Work Phone: [facility] 02-21-2023 11:38-0400 Respiratory rate 16 /min Ab Shaffer Jr., MD Work Phone: [facility] 02-21-2023 11:38-0400 SaO2% (BldA) [Mass fraction] 96 % Ab Shaffer Jr., MD Work Phone: [facility] 02-21-2023 11:38-0400 Systolic blood pressure 145 mm[Hg] Ab Shaffer Jr., MD Work Phone: [facility] 10-20-2022 15:56-0400 Body temperature 97.81 [degF] Vicenta Chirinos PA-C Work Phone: [facility] 10-20-2022 15:56-0400 Body weight 64.86 kg Vicenta Borjaser PA-C Work Phone: [facility] 10-20-2022 15:56-0400 Diastolic blood pressure 84 mm[Hg] Vicenta Chirinos PA-C Work Phone: [facility] 10-20-2022 15:56-0400 Heart rate 75 /min Vicenta Borjaser PA-C Work Phone: [facility] 10-20-2022 15:56-0400 Respiratory rate 16 /min Vicenta Borjaser PA-C Work Phone: [facility] 10-20-2022 15:56-0400 SaO2% (BldA) [Mass fraction] 95 % Vicenta Chirinos PA-C Work Phone: [facility] 10-20-2022 15:56-0400 Systolic blood pressure 146 mm[Hg] Vicenta Chirinos PA-C Work Phone: [facility] 05-12-2022 15:30-0500 Body height 160.[address] Magalys Mcclure Work Phone: [facility] 05-12-2022 15:30-0500 Body mass index (BMI) [Ratio] 24.5 kg/m2 Dr. Magalys Mcclure Work Phone: [facility] 05-12-2022 15:30-0500 Body weight 62.[address] Magalys Mcclure Work Phone: [facility] 05-12-2022 15:30-0500 Diastolic blood pressure 76 mm[Hg] Dr. Magalys Mcclure Work Phone: [facility] 05-12-2022 15:30-0500 Systolic blood pressure 165 mm[Hg] Dr. Magalys Mcclure Work Phone: [facility] 01-22-2022 11:36-0400 Body temperature 97.3 [degF] Dr. Magalys Mcclure Work Phone: [facility] Work Phone: 01-22-2022 11:36-0400 Diastolic blood pressure 59 mm[Hg] Dr. Magalys Mcclure Work Phone: [facility] Work Phone: 01-22-2022 11:36-0400 Heart rate 70 /min Dr. Magalys Mcclure Work Phone: [facility] Work Phone: 01-22-2022 11:36-0400 Respiratory rate 16 /min Dr. Magalys Mcclure Work Phone: [facility] Work Phone: 01-22-2022 11:36-0400 SaO2% (BldA) [Mass fraction] 98 % Dr. Magalys Mcclure Work Phone: [facility] Work Phone: 01-22-2022 11:36-0400 Systolic blood pressure 162 mm[Hg] Dr. Magalys Mcclure Work Phone: [facility] Work Phone: 01-22-2022 08:23-0400 Body height 160.[address] Magalys Mcclure Work Phone: [facility] Work Phone: 01-22-2022 08:23-0400 Body mass index (BMI) [Ratio] 24.3 kg/m2 Dr. Magalys Mcclure Work Phone: [facility] Work Phone: 01-22-2022 08:23-0400 Body weight 62.[address] Magalys Mcclure Work Phone: [facility] Work Phone: 03-18-2017 13:11-0400 BMI (Body Mass Index) 25.78 kg/m2 Taryn Lee MD [facility] 03-18-2017 13:11-0400 Body Temperature 97.4 [degF] Taryn Lee MD [facility] 03-18-2017 13:11-0400 Body Temperature 97.39 [degF] Taryn Lee MD [facility] 03-18-2017 13:11-0400 BP Diastolic 73 mm[Hg] Taryn Lee MD [facility] 03-18-2017 13:11-0400 BP Systolic 147 mm[Hg] Taryn Lee MD [facility] 03-18-2017 13:11-0400 Height 162.56 cm Taryn Lee MD [facility] 03-18-2017 13:11-0400 Pulse (Heart Rate) 63 /min Taryn Lee MD [facility] 03-18-2017 13:11-0400 Respiratory Rate 16 /min Taryn Lee MD [facility] 03-18-2017 13:11-0400 Weight 68.13 [address] Lee MD [facility] Encounters Encounter Date Encounter Type Care Provider Facility Start: 08-16-2024 End: 08-16-[address] Magalys Mcclure MD Work Phone: [facility] Work Phone: Start: 08-16-2024 End: 08-16-[address] Magalys Mcclure MD -[facility] Start: 08-16-2024 End: 08-16-2024 ambulatory Magalys Mcclure Facility:[facility] Start: 07-10-2024 End: 07-10-[address] Samir Forrest MD -[facility] Work Phone: Start: 07-10-2024 End: 07-10-2024 ambulatory Magalys Mcclure Facility:[facility] Start: 06-19-2024 End: 08-03-2024 Refill Ab Shaffer MD Work Phone: Neurology Comment on above: Refill Request Start: 06-15-2024 End: 08-08-2024 ambulatory MAGALYS MCCLURE MD Facility:[facility] Start: 06-15-2024 End: 08-08-2024 Physical therapy management NED CHIU MD [facility] Start: 05-31-2024 End: 05-31-[address] Ned Chiu MD -[facility] Work Phone: Start: 05-31-2024 End: 05-31-2024 ambulatory Magalys Mcclure Facility:[facility] Start: 05-24-2024 End: 05-24-[address] Taryn Lee MD -[facility] Work Phone: Start: 05-24-2024 End: 05-24-[address] Taryn Lee MD [facility] Start: 05-24-2024 End: 05-24-2024 ambulatory Magalys Mcclure Facility:[facility] Start: 05-15-2024 End: 05-15-[address] [facility] Work Phone: Start: 05-15-2024 End: 05-15-2024 ambulatory Magalys Mcclure Facility:[facility] Start: 04-27-2024 End: 04-27-2024 ambulatory Magalys Mcclure Facility:[facility] Start: 04-11-2024 End: 04-11-2024 ambulatory Magalys Mcclure Facility:[facility] Start: 04-03-2024 End: 04-03-2024 ambulatory Magalys Mcclure Facility:[facility] Start: 04-03-2024 End: 04-03-2024 ambulatory Magalys Mcclure Facility:[facility] Start: 03-05-2024 End: 03-05-2024 ambulatory AB SHAFFER JR Facility:[facility] Start: 03-05-2024 End: 03-05-2024 ambulatory Magalys Mcclure Facility:[facility] Start: 03-02-2024 End: 03-02-2024 Patient encounter procedure Ab Shaffer MD Work Phone: Neurology Comment on above: Generalized convulsi ve epilepsy (HCC) (Primary Dx); Hyponatremia; MELA (obstructive sleep apnea); Migraine without aura and without status migrainosus, not intractable; Dizziness Start: 03-02-2024 End: 03-02-2024 ambulatory AB SHAFFER JR Facility:[facility] Start: 02-24-2024 End: 02-24-2024 ambulatory Magalys Mcclure Facility:[facility] Start: 02-17-2024 End: 02-20-2024 Refill Ab Shaffer MD Work Phone: Neurology Comment on above: Refill Request Start: 11-24-2023 End: 11-24-2023 ambulatory Magalys Mcclure Facility:[facility] Start: 11-09-2023 End: 11-09-2023 ambulatory Magalys Mcclure Facility:[facility] Start: 10-18-2023 Refill Ab kline MD Work Phone: [facility] Comment on above: Refill Request Start: 09-30-2023 End: 09-30-[address] Magalys Mcclure Work Phone: [facility] Work Phone: Start: 09-30-2023 End: 09-30-[address] Magalys Mcclure Work Phone: [facility]-Laboratory, Specimen Work Phone: Start: 09-30-[address] Fredy Mcclure Work Phone: [facility] Start: 09-30-2023 End: 09-30-[address] Magalys Mcclure Work Phone: [facility] Start: 09-30-2023 End: 09-30-[address] Magalys Mcclure Work Phone: [facility] Work Phone: Start: 09-30-2023 End: 09-30-2023 ambulatory Magalys Mcclure Facility:[facility] Start: 09-30-2023 End: 09-30-2023 ambulatory Magalys Mcclure Facility:[facility] Start: 08-01-2023 End: 08-01-2023 ambulatory AB SHAFFER JR Facility:[facility] Start: 08-01-2023 End: 08-01-2023 Patient encounter procedure Ab Shaffer MD Work Phone: Neurology Comment on above: Dizziness (Primary D x); Generalized convulsive epilepsy (HCC); MELA (obstructive sleep apnea); Migraine without aura and without status migrainosus, not intractable; Hyponatremia Start: 07-25-2023 Refill Ab kline MD Work Phone: Sleep Comment on above: Refill Request Start: 07-22-2023 End: 07-22-[address] Magalys Mcclure Work Phone: [facility] Work Phone: Start: 07-22-2023 End: 07-22-[address] Magalys Mcclure Work Phone: [facility] Work Phone: Start: 07-06-[address] Magalys Mcclure Work Phone: [facility]-Speech Therapy Work Phone: Start: 06-23-2023 End: 06-23-[address] Magalys Mcclure Work Phone: [facility] Work Phone: Start: 06-23-2023 End: 06-23-[address] Magalys Mcclure Work Phone: [facility] Work Phone: Start: 06-16-[address] Magalys Mcclure Work Phone: [facility]-Speech Therapy Work Phone: Start: 05-25-2023 End: 05-25-[address] Magalys Mcclure Work Phone: [facility] Work Phone: Start: 05-25-2023 End: 05-25-[address] Magalys Mcclure Work Phone: [facility]-Radiology, [facility] Work Phone: Start: 05-24-2023 End: 05-24-[address] Magalys Mcclure Work Phone: [facility] Work Phone: Start: 05-24-2023 End: 05-24-[address] Magalys Mcclure Work Phone: [facility]-Outpatient Breast Imaging Work Phone: Start: 04-29-2023 End: 04-29-2023 ambulatory Marcella Hercules PT [facility] Comment on above: Dizziness and giddin ess (Primary Dx) Start: 04-21-2023 End: 04-21-[address] Magalys Mcclure Work Phone: [facility] Work Phone: Start: 04-21-2023 End: 04-21-[address] Magalys Mcclure Work Phone: [facility]-Laboratory, Specimen Work Phone: Start: 04-20-2023 Refill Ab kline MD Work Phone: [facility] [place] Comment on above: Refill Request Start: 04-14-2023 End: 04-14-[address] Magalys Mcclure Work Phone: [facility] Work Phone: Start: 04-14-2023 End: 04-14-[address] Magalys Mcclure Work Phone: [facility]-Laboratory Work Phone: Start: 04-14-2023 End: 04-14-[address] Magalys Mcclure Work Phone: [facility] Work Phone: Start: 04-08-2023 End: 04-08-2023 ambulatory Marcella Hercules PT [facility] Comment on above: Dizziness and giddin ess (Primary Dx) Start: 04-04-2023 Telephone encounter Ab Shaffer MD Work Phone: Neurology Comment on above: Results 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 Start: 04-01-2023 End: 04-01-[address] Magalys Mcclure Work Phone: [facility] Work Phone: Start: 04-01-2023 End: 04-01-[address] Magalys Mcclure Work Phone: [facility] Start: 03-30-2023 End: 03-30-2023 ambulatory Marcella Hercules PT [facility] Comment on above: Dizziness and giddin ess (Primary Dx) Start: 03-18-2023 End: 03-18-2023 ambulatory MAGALYS MCCLURE Facility:[facility] Start: 03-18-2023 End: 03-18-2023 Patient encounter procedure Sharonda Duran PhD Work Phone: Audiology Comment on above: Dizziness (Primary D x); Vestibular dysfunction, right Start: 03-17-2023 End: 03-17-[address] Magalys Mcclure Work Phone: [facility]-Laboratory, Specimen Work Phone: Start: 03-17-2023 End: 03-17-[address] Magalys Mcclure Work Phone: [facility] Work Phone: Start: 03-16-2023 End: 03-16-[address] Magalys Mcclure Work Phone: [facility], [facility] Work Phone: Start: 03-11-2023 Telephone encounter Ab Shaffer MD Work Phone: Neurology Comment on above: Patient Question Start: 03-10-2023 End: 03-10-2023 ambulatory MAGALYS MCCLURE Facility:[facility] Start: 03-03-2023 End: 03-03-[address] Magalys Mcclure Work Phone: [facility] Work Phone: Start: 03-03-2023 End: 03-03-2023 Subsequent hospital visit by physician [facility] (I-Stat) Work Phone: Cat Scan Comment on above: Dizziness and giddin ess [R42] Start: 02-22-2023 Telephone encounter Vicenta moore PA-C Work Phone: Neurology Comment on above: Results Start: 02-21-2023 Telephone encounter Ab Shaffer MD Work Phone: Neurology Comment on above: Orders Start: 02-21-2023 End: 02-21-2023 Patient encounter procedure Ab Shaffer MD Work Phone: Neurology Comment on above: Dizziness and giddin ess (Primary Dx); Lightheadedness; Generalized convulsive epilepsy (HCC); High risk medication use; MELA (obstructive sleep apnea); Migraine without aura and without status migrainosus, not intractable; Neuropathy; History of carotid stenosis Start: 02-18-2023 End: 02-18-2023 ambulatory [facility] Work Phone: Start: 02-18-2023 End: 02-18-2023 Patient encounter procedure [facility] Start: 02-02-2023 End: 02-02-2023 ambulatory [facility] Work Phone: Start: 02-02-2023 End: 02-02-2023 Patient encounter procedure [facility]-Cat Scan, [facility] Work Phone: Start: 01-12-2023 Telephone encounter Vicenta moore PA-C Work Phone: Neurology Comment on above: Fax Results Start: 12-29-2022 Refill Ab kline MD Work Phone: Neurology Comment on above: Refill Request Start: 12-28-2022 End: 12-28-2022 ambulatory [facility] Work Phone: Start: 12-28-2022 End: 12-28-2022 Patient encounter procedure [facility]-Radiology, [place] Work Phone: Start: 12-17-2022 End: 12-17-2022 ambulatory Marcella O'Anthony PT [facility] Comment on above: Dizziness (Primary D x); Unsteadiness Start: 12-01-2022 End: 12-01-2022 ambulatory Marcella O'Anthony PT [facility] Comment on above: Unsteadiness (Primar y Dx); Dizziness Start: 11-30-2022 Telephone encounter Vicenta moore PA-C Work Phone: Neurology Comment on above: Results Start: 11-29-2022 End: 11-29-2022 Subsequent hospital visit by physician [employer] [employer] [facility] (I-Stat/1.5t) Work Phone: Radiology Comment on above: Dizziness [R42] Start: 11-09-2022 Refill Ab kline MD Work Phone: [facility] [place] Comment on above: Refill Request Start: 10-20-2022 End: 10-20-2022 Patient encounter procedure Vicenta Chirinos PA-C Work Phone: Neurology Comment on above: Generalized convulsi ve epilepsy (HCC) (Primary Dx); Encounter for medication monitoring; Dizziness; Unsteadiness; MELA (obstructive sleep apnea); Migraine without aura and without status migrainosus, not intractable; Neuropathy; Bilateral carpal tunnel syndrome Start: 09-18-2022 Refill Ab kline MD Work Phone: Neurology Comment on above: Refill Request Start: 08-02-2022 Refill Ab kline MD Work Phone: Neurology Comment on above: Refill Request Start: 06-29-2022 End: 06-29-[address] Magalys Mcclure Work Phone: [facility] Work Phone: Start: 06-29-2022 End: 06-29-[address] Magalys Mcclure Work Phone: [facility] Start: 06-11-2022 Refill Ab kline MD Work Phone: [facility] Comment on above: Refill Request Start: 05-12-2022 End: 05-12-[address] Magalys Mcclure Work Phone: [facility] Work Phone: Start: 05-12-2022 End: 05-12-[address] Magalys Mcclure Work Phone: [facility]-Outpatient Breast Imaging Start: 05-12-2022 End: 05-12-[address] Magalys Mcclure Work Phone: [facility] Start: 04-14-2022 End: 04-14-[address] Magalys Mcclure Work Phone: [facility] Work Phone: Start: 04-14-2022 End: 04-14-[address] Magalys Mcclure Work Phone: [facility] Start: 03-11-2022 End: 03-11-[address] Magalys Mcclure Work Phone: [facility] Work Phone: Start: 03-11-2022 End: 03-11-[address] Magalys Mcclure Work Phone: [facility]-Outpatient Bone Densitometry Start: 02-03-2022 End: 02-03-[address] Magalys Mcclure Work Phone: [facility] Start: 01-22-2022 Non-patient / Non-visit Dr. Beverly Mcclure Work Phone: [facility] Start: 01-22-2022 End: 01-22-2022 Admission to same day surgery center Dr. Magalys Mcclure Work Phone: [facility]-Surgical Day Care Start: 01-06-2022 End: 01-06-[address] Magalys Mcclure Work Phone: [facility] Start: 10-22-2021 Telephone encounter Ab Shaffer MD Work Phone: Neurology Comment on above: Results Start: 09-17-2021 Telephone encounter Ab Shaffer MD Work Phone: Neurology Comment on above: Carbamazapine level Procedures Date Procedure Procedure Detail Performing Clinician Start: 05-31-2024 Plain x-ray of pelvis and lower extremity Dr. Magalys Mcclure MD Work Phone: Start: 05-31-2024 X-ray of lumbosacral spine Dr. Magalys adams MD Work Phone: Start: 05-15-2024 End: 05-15-2024 XR knee, [address] Magalys Mcclure MD Work Phone: Start: 05-15-2024 Plain x-ray of pelvis and lower extremity Dr. Magalys Mcclure MD Work Phone: Start: 05-25-[address] Magalys Mcclure Work Phone: Start: 05-24-[address] Magalys Mcclure Work Phone: Start: 03-16-[address] Magalys Mcclure Work Phone: Start: 03-03-2023 Ct angiography head w/contrast/noncontrast Ab Shaffer MD Work Phone: Start: 03-03-2023 Ct angiography neck w/contrast/noncontrast Ab Shaffer MD Work Phone: Start: 02-02-2023 Plain x-ray of pelvis and lower extremity Start: 02-02-2023 CT of lumbar spine Start: 12-28-2022 X-ray of lumbar spine, two or three views Start: 11-29-2022 Mri brain brain stem w/o w/contrast material Vicenta Chirinos PA-C Work Phone: Start: 05-12-[address] Magalys Mcclure Work Phone: Start: 03-11-2022 Dual energy X-ray absorptiometry Dr. Kojo Mcclure Work Phone: Start: 01-22-2022 Decompression of median nerve Dr. Magalys contreras Work Phone: Start: 05-25-2019 Colonoscopy NED CHIU MD Start: 03-18-2017 Screening mammography Screening mammogram for breast cancer Taryn Lee MD Start: 03-18-2017 End: 03-18-2017 Documentation of current medications Taryn Lee MD Esophagogastroduodenoscopy C DESHAWN CHIU MD Primary open repair of ruptured Achilles tendon NED CHIU MD Prosthetic arthroplasty of the hip NED CHIU MD Comment on above: bilateral Release of trigger thumb YODIT CHIU MD Plan of Treatment Date Care Activity Detail Author Start: 02-06-2029 Urine microalbumin profile [facility] Start: 02-21-2026 Diabetes Screening Diabetes Screening [facility] Start: 08-31-2024 End: 08-31-2024 Patient encounter procedure 08/31/2024 2:00 PM EDT Office Visit Neurology [address] [facility] [place] [address] Ab Shaffer Jr., MD [address] [facility] [address] [place] [address] follow up Neurology Comment on above: follow up Start: 2024 Advance Directive Discussion Advance Directive Discussion [facility] Start: 05-31-2024 Patient referral [facility] Work Phone: Start: 03-02-2024 End: 03-02-2024 Patient encounter procedure 03/02/2024 3:20 PM EDT Office Visit Neurology [address] [place] [address] Ab Shaffer Jr., MD [address] [facility] [address] [place] [address] 7 month Follow up vertigo Neurology Comment on above: 7 month Follow up vertigo Start: 03-02-2024 End: 06-01-2024 carBAMazepine free [Mass/volume] in Serum or Plasma CARBAM/TEGRETOL, FREE Lab Routine Generalized convulsive epilepsy (HCC) Expected: 03/02/2024, Expires: 06/01/2024 [facility] Work Phone: Comment on above: Expected: 03/02/2024, Expires: Start: 02-12-2024 Covid-19 Vaccine () Covid-19 Vaccine () [facility] Start: 02-12-2024 Covid-19 Vaccine () Covid-19 Vaccine () [facility] Start: 02-12-2024 Influenza vaccination [facility] Start: 2023 Advance Directive Discussion Advance Directive Discussion [facility] Start: 2023 Behavioral Health Screening Behavioral Health Screening [facility] Start: 2023 Depression Assessment Depression Assessment [facility] Start: 02-11-2023 Covid-19 Vaccine () Covid-19 Vaccine () [facility] Start: 02-11-2023 Influenza vaccination [facility] Start: 12-29-2022 End: 02-28-2023 CBC panel - Blood by Automated count CBC Lab Routine Generalized convulsive epilepsy (HCC) Expected: 12/29/2022, Expires: 02/28/2023 [facility] Work Phone: Comment on above: Expected: 12/29/2022, Expires: 3 Start: 12-29-2022 End: 02-28-2023 Comprehensive metabolic 2000 panel - Serum or Plasma COMP METABOLIC PANEL Lab Routine Generalized convulsive epilepsy (HCC) Expected: 12/29/2022, Expires: 02/28/2023 [facility] Work Phone: Comment on above: Expected: 12/29/2022, Expires: 3 Start: 2022 ADVANCE DIRECTIVE DISCUSSION ADVANCE DIRECTIVE DISCUSSION [facility] Start: 2022 DEPRESSION ASSESSMENT DEPRESSION ASSESSMENT [facility] Start: 05-20-2022 COVID-19 VACCINE (6 - Booster for Moderna series) COVID-19 VACCINE (6 - Booster for Moderna series) [facility] Start: 05-20-2022 COVID-19 VACCINE (6 - Moderna series) COVID-19 VACCINE (6 - Moderna series) [facility] Start: 02-11-2022 Influenza vaccination INFLUENZA (#1) [facility] Start: 01-22-2022 Anes nerve muscle tdn fascia&bursa forearm wrist ANESTH LOWER ARM SURGERY [facility] Work Phone: Start: 01-22-2022 Neuroplasty &/transpos median nrv carpal tunne CARPAL TUNNEL SURGERY [facility] Work Phone: Start: 01-22-2022 Application of ice collar, cap or bag [facility] Work Phone: Start: 01-22-2022 Catheterization of vein [facility] Work Phone: Start: 01-22-2022 Elevation of affected extremity [facility] Work Phone: Start: 01-22-2022 Following clinical pathway protocol [facility] Work Phone: Start: 01-22-2022 Patient discharge [facility] Work Phone: Start: 01-22-2022 Procedure discontinued [facility] Work Phone: Start: 01-22-2022 Taking patient vital signs [facility] Work Phone: Start: 01-22-2022 Vital signs measurements [facility] Work Phone: Start: 01-22-2022 [facility] Work Phone: Start: 01-22-2022 Medication education [facility] Work Phone: Start: 11-28-2021 COVID-19 VACCINE (5 - Booster for Moderna series) COVID-19 VACCINE (5 - Booster for Moderna series) [facility] Start: 10-22-2021 End: 12-22-2021 CBC W Auto Differential panel - Blood CBC + DIFF Lab Routine Generalized convulsive epilepsy (HCC) Expected: 10/22/2021, Expires: 12/22/2021 [facility] Work Phone: Comment on above: Expected: 10/22/2021, Expires: 2 Start: 10-22-2021 End: 12-22-2021 Comprehensive metabolic 2000 panel - Serum or Plasma COMP METABOLIC PANEL Lab Routine Generalized convulsive epilepsy (HCC) Expected: 10/22/2021, Expires: 12/22/2021 [facility] Work Phone: Comment on above: Expected: 10/22/2021, Expires: 2 Start: 09-17-2021 End: 11-17-2021 carBAMazepine free [Mass/volume] in Serum or Plasma CARBAM/TEGRETOL F Lab Routine Generalized convulsive epilepsy (HCC) Expected: 09/17/2021, Expires: 11/17/2021 [facility] Work Phone: Comment on above: Expected: 09/17/2021, Expires: 2 Start: 2021 ADVANCE DIRECTIVE DISCUSSION ADVANCE DIRECTIVE DISCUSSION [facility] Start: 03-28-2021 DIABETES SCREEN DIABETES SCREEN [facility] Start: 03-31-2017 End: 03-31-2017 Mammogram, screening Mammogram, Screening, both breasts [facility] Start: 03-18-2017 End: 03-18-[address] [facility] Start: 2013 RSV Vaccine (1 - 1-dose 75+ series) RSV Vaccine (1 - 1-dose 75+ series) [facility] Start: 05-28-2013 SHINGRIX VACCINE (2 of 3) SHINGRIX VACCINE (2 of 3) [facility] Start: 1998 RSV Vaccine (1 - 1-dose 60+ series) RSV Vaccine (1 - 1-dose 60+ series) [facility] Start: 1956 Anxiety Screening Anxiety Screening [facility] Start: 1956 Depression Screening Depression Screening [facility] Cardiovascular funct ion eval w/tilt table w/mntr TILT TABLE EVALUATION Cardiology Routine Lightheadedness Ordered: 02/21/2023 [facility] Work Phone: Comment on above: Ordered: 02/21/2023 End: 03-22-2024 CTA HEAD WO/W IVCON CTA HEAD WO/W IVCON Radiology Routine Dizziness and giddiness Lightheadedness History of carotid stenosis 1 Occurrences starting 02/21/2023 until 03/22/2024 [facility] Work Phone: Comment on above: 1 Occurrences starting 02/21/2023 until 03/22/2024 End: 03-22-2024 CTA NECK W IVCON CTA NECK W IVCON Radiology Routine Dizziness and giddiness Lightheadedness History of carotid stenosis 1 Occurrences starting 02/21/2023 until 03/22/2024 [facility] Work Phone: Comment on above: 1 Occurrences starting 02/21/2023 until 03/22/2024 End: 02-22-2024 Echocardiography ECHO Cardiology Routine Dizziness and giddiness Lightheadedness 1 Occurrences starting 02/21/2023 until 02/22/2024 [facility] Work Phone: Comment on above: 1 Occurrences starting 02/21/2023 until 02/22/2024 End: 11-19-2023 Mri brain brain stem w/o w/contrast material MRI BRAIN WO/W IVCON Radiology Routine Dizziness Unsteadiness 1 Occurrences starting 10/20/2022 until 11/19/2023 [facility] Work Phone: Comment on above: 1 Occurrences starting 10/20/2022 until 11/19/2023 End: 11-19-2023 Mri spinal canal cervical w/o contrast matrl MRI CERVICAL SPINE WO IVCON Radiology Routine Dizziness Unsteadiness 1 Occurrences starting 10/20/2022 until 11/19/2023 [facility] Work Phone: Comment on above: 1 Occurrences starting 10/20/2022 until 11/19/2023 OUTSIDE VENDOR CARDI AC OUTPATIENT EXTENDED RHYTHM RECORDING (WITHOUT TELEMETRY) OUTSIDE VENDOR CARDIAC OUTPATIENT EXTENDED RHYTHM RECORDING (WITHOUT TELEMETRY) Holter Routine Lightheadedness Ordered: 02/21/2023 [facility] Work Phone: Comment on above: Ordered: 02/21/2023 Patient referral [facility] Work Phone: PT PLAN OF CARE CERTIFICATION PT PLAN OF CARE CERTIFICATION Procedures Routine Dizziness Unsteadiness Ordered: 12/01/2022 [facility] Comment on above: Ordered: 12/01/2022 [facility] VESTIBULAR TEST BATTERY VESTIBUL AR TEST BATTERY Audiology Routine Dizziness and giddiness Ordered: 02/21/2023 [facility] Work Phone: Comment on above: Ordered: 02/21/2023 [facility] Immunizations Immunization Date Immunization Notes Care Provider Fa alina 08-15-2023 influenza virus vacc ine, unspecified formulation Ab Shaffer Jr., MD Work Phone: [facility] 03-25-2022 influenza virus vacc ine, unspecified formulation Vicenta Chirinos PA-C Work Phone: [facility] 03-17-2021 influenza, injectabl e, quadrivalent, contains preservative Ab Shaffer Jr., MD Work Phone: [facility] 08-08-2020 COVID-19 vaccine, fu ll dose (MODERNA) Ab Shaffer Jr., MD Work Phone: [facility] 07-11-2020 COVID-19 vaccine, fu ll dose (MODERNA) Ab Shaffer Jr., MD Work Phone: [facility] 03-02-2020 influenza (aIIV4) vaccine, age 65+ yr, quadrivalent, PF (FLUAD QUADRIVALENT) Ab Shaffer Jr., MD Work Phone: [facility] 02-12-2020 pneumococcal polysaccharide vaccine, 23 valent Ab Shaffer Jr., MD Work Phone: [facility] 04-17-2019 influenza, high dose seasonal, preservative-free Ab Shaffer Jr., MD Work Phone: [facility] 02-06-2019 pneumococcal conjuga te vaccine, 13 valent Ab Shaffer Jr., MD Work Phone: [facility] 02-06-2019 tetanus toxoid, redu yo diphtheria toxoid, and acellular pertussis vaccine, adsorbed Ab Shaffer Jr., MD Work Phone: [facility] 03-19-2017 influenza, high dose seasonal, preservative-free Ab Shaffer Jr., MD Work Phone: [facility] Work Phone: 2016 influenza, injectabl e, quadrivalent, contains preservative Ab Shaffer Jr., MD Work Phone: [facility] 05-11-2016 influenza, high dose seasonal, preservative-free Ab Shaffer Jr., MD Work Phone: [facility] 09-22-2015 pneumococcal conjuga te vaccine, 13 valent Ab Shaffer Jr., MD Work Phone: [facility] 04-07-2015 influenza, high dose seasonal, preservative-free Ab Shaffer Jr., MD Work Phone: [facility] 08-21-2013 tetanus toxoid, redu yo diphtheria toxoid, and acellular pertussis vaccine, adsorbed Ab Shaffer Jr., MD Work Phone: [facility] 07-13-2013 influenza virus vacc ine, unspecified formulation Ab Shaffer Jr., MD Work Phone: [facility] Work Phone: 04-02-2013 zoster vaccine, live Ab Shaffer Jr., MD Work Phone: [facility] Work Phone: 03-23-2012 influenza virus vacc ine, whole virus Ab Shaffer Jr., MD Work Phone: [facility] Work Phone: 03-17-2010 influenza virus vacc ine, unspecified formulation Ab Shaffer Jr., MD Work Phone: [facility] 04-12-2006 influenza virus vacc ine, unspecified formulation Ab Shaffer Jr., MD Work Phone: [facility] 09-04-2004 pneumococcal polysaccharide vaccine, 23 valent Ab Shaffer Jr., MD Work Phone: [facility] Work Phone: 04-13-2003 influenza virus vacc ine, unspecified formulation Ab Shaffer Jr., MD Work Phone: [facility] Work Phone: 07-05-2002 diphtheria and tetan us toxoids, adsorbed for pediatric use Ab Shaffer Jr., MD Work Phone: [facility] Work Phone: Payers Date Payer Category Payer Self-pay [id number] 2017 Medicare (Managed Care) NUVIA GARCIA O [id number] 2017 Unknown ANTHEM BLUE CROS S AND BLUE SHIELD ANTHEM MEDIBLUE HMO [id number] 2017-Present [phone] [address] [place] [address] HMO [id number] 2017 Unknown [id number] 2017 Medicare [id number] 2014 Medicare [id number] 2014 Unknown [id number] 1938 Unknown [id number] Medicare [id number] Unknown [id number] Unknown [id number]. 2.462 Unknown [id number]. 2.462 Unknown [id number]. 2.462 Unknown [id number]. 2.462 Unknown [id number]. 2.462 Unknown [id number]. 2.462 Unknown [id number]. 2.462 Unknown [id number]. 2.462 Unknown [id number]. 2.462 Unknown [id number]. 2.462 Unknown [id number]. 2.462 Unknown [id number]. 2.462 Unknown [id number]. 2.462 Unknown [id number]. 2.462 Unknown [id number]. 2.462 Social History Date Type Detail Facility Start: 10-20-2022 End: 04-03-2024 Tobacco smoking status NHIS Never smoked tobacco [facility] Start: 06-26-2021 End: 03-02-2024 Alcohol intake Current non-drinker of alcohol (finding) [facility] Start: 1940 Sex Assigned At Not on file [facility] Start: 01-15-2022 End: 04-14-2023 Tobacco smoking status IAIS Unknown if ever smoked [facility] Start: 1940 Sex Assigned At Female [facility] Start: 10-20-2022 Tobacco use and exposure Smoke less tobacco non-user [facility] Start: 10-20-2022 End: 03-02-2024 History of Social function [facility] Start: 10-20-2022 End: 03-02-2024 Tobacco use panel [facility] National Score (1-10 0), lower number is lower risk 43 [facility] Sexual Orientation [facility] Start: 10-18-2014 End: 08-28-2024 Sex Female (finding) [facility] Goals Date Patient Goal Desired Activity /State Functional Status Date Assessment Result Facility 12-12-2014 Are you deaf, or do you have serious difficulty hearing No 12/12/2014 4:18 PM EDT Michelle Wooten Ma No [facility] Work Phone: 12-12-2014 Are you blind, or do you have serious difficulty seeing, even when wearing glasses No 12/12/2014 4:18 PM EDT Michelle Wooten Ma [facility] 12-12-2014 Do you have serious difficulty walking or climbing stairs Yes 12/12/2014 4:18 PM EDT Michelle Wooten Ma Yes [facility] 12-12-2014 Do you have difficul ty dressing or bathing No 12/12/2014 4:18 PM EDT Michelle Wooten Ma No [facility] 12-12-2014 Because of a physica l, mental, or emotional condition, do you have difficulty doing errands alone such as visiting a physician's office or shopping Yes 12/12/2014 4:18 PM EDT Michelle Wooten Ma Yes [facility] Mental Status Date Assessment Result Facility 01-22-2022 Cognitive function Voice/Name [facility] Work Phone: 12-12-2014 Because of a physica l, mental, or emotional condition, do you have serious difficulty concentrating, remembering, or making decisions No 12/12/2014 4:18 PM EDMichelle Whitley Ma [facility] Clinical Notes 07-06-2011 to 06-19-2024 Telephone Encounter - Melissa Martinez LPN - 06/19/2024 10:32 AM ESTTelephone Encounter - Melissa Martinez LPN - 06/19/2024 10:32 AM EST Note Date & Type Note Facility 06-19-2024 Telephone encount er Note The patient has been identified by name and date of : Yes Caregiver verified no other encounters exist for this prescription request: Yes Caregiver confirmed with patient/requestor that no other refills are due, in the near future, with this provider at this time: Yes The last office visit in the department: 03/02/2024 Does the patient have a future office visit with this provider/department: Yes 08/31/2024 Requested Prescriptions Pending Prescriptions Disp Refills carBAMazepine (TEGRETOL) 200 mg tablet 180 tablet 1 Sig: TAKE 1/2 TABLET BY MOUTH IN THE MORNING AND 1.5 TABLETS IN THE EVENING Patient said last refilled end march and she does her pill box 4 weeks at a time. Melissa Martinez LPN June 19, 2024 10:33 AM [facility] 06-19-2024 Miscellaneous Notes Formattin g of this note is different from the original. The patient has been identified by name and date of : Yes Caregiver verified no other encounters exist for this prescription request: Yes Caregiver confirmed with patient/requestor that no other refills are due, in the near future, with this provider at this time: Yes The last office visit in the department: 03/02/2024 Does the patient have a future office visit with this provider/department: Yes 08/31/2024 Requested Prescriptions Pending Prescriptions Disp Refills carBAMazepine (TEGRETOL) 200 mg tablet 180 tablet 1 Sig: TAKE 1/2 TABLET BY MOUTH IN THE MORNING AND 1.5 TABLETS IN THE EVENING Patient said last refilled end march and she does her pill box 4 weeks at a time. Melissa Martinez LPN June 19, 2024 10:33 AM documented in this encounter [facility] 05-24-2024 Evaluation note Diagnosis Onset Date Resolution Climacteric acute May 1:08pm Encounter for gynecological examination (general) (routine) with abnormal acute May 24, 2024 1:08pm Endometrial hyperplasia acute May 24, 2024 1:08pm Encounter for routine gynecological examination noneactive May 24, 2024 1:08pm Lumbar scoliosis acute May 31, 2024 1:24pm Osteopenia determined by x-ray acute May 31, 2024 1:24pm Right hip pain acute May 132023 1:24pm Spinal stenosis of lumbar region with neurogenic claudication acute May 31, 2024 1:24pm Spondylolisthesis, lumbar region acute May 31, 2024 1:24pm Bilateral lower extremity edema chronic July 10, 2024 1:22pm 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 Author Type: Physician Type: Progress Notes Filed: 03/02/2024 18:36 Note Text: ESTABLISHED PATIENT VISIT CHIEF COMPLAINT: Follow Up HISTORY OF PRESENT ILLNESS: Katrina Mancini is a 83 year old female, BMI 22.53 kg/m2 with a PMH significant for and per last office visit of 08/01/23: 1. Dizziness - ICD9: 780.4, ICD10: R42 (primary diagnosis) Resolved with vestibular therapy. Pt did not complete tilt table but asx. Following with cardiology for SVT. At this time no additional testing or treatment needed. Encouraged pt to follow instructions of therapies if symptoms were to return. 2. 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 Years since last seizure (see prior notes). Concern that hyponatremia reported by pt (now resolved) possibly due to Tegretol, although no changes in dosing for years with no prior issues. Advised pt to update us on next Na level. If hyponatremic again, should at least consider lowering Tegretol dose given high therapeutic level. May also consider transitioning to alternative ASM. 3. MELA (obstructive sleep apnea) - ICD9: 327.23, ICD10: G47.33 Asx with use of dental appliance. No change in therapy and no need for further testing at this time. 4. Migraine without aura and without status migrainosus, not intractable - ICD9: 346.10, ICD10: G43.009 Asx while take verapamil. BPs stable. Last Na level on record was from 2022 - . Pt reports no dizziness since last visit. 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 D/w pt possible need for antidepressant - states tried through PCP, but cause Na to drop. More recent Na was 135. Pt remains complaint with Tegretol. On Ca/Vit D supplements. No seizures. No dizziness. No migraines (remains on Verapamil and pt states never wants to stop it). Patient using dental appliance. Sleep fragmented due to stress of 's health. She feels it is improving as recovering. REVIEW OF SYSTEMS GENERAL:No weight loss, malaise [...] SKIN:Negative for lesions, rash, and itching. PSYCHIATRIC: See HPI. LAB/IMAGING: Those performed since patient's last visit have been reviewed. WBC (k/uL) Date Value 02/21/2023 5.85 RBC (m/uL) Date Value 02/21/2023 4.16 Hemoglobin (g/dL) Date Value 02/21/2023 14.4 Hematocrit (%) Date Value 02/21/2023 40.6 MCV (fL) Date Value 02/21/2023 97.6 MCH (pg) Date Value 02/21/2023 34.6 (H) MCHC (g/dL) Date Value 02/21/2023 35.5 RDW-CV (%) Date Value 02/21/2023 11.6 Platelet Count (k/uL) Date Value 02/21/2023 289 MPV (fL) Date Value 02/21/2023 9.0 Glucose (mg/dL) Date Value 02/21/2023 85 BUN (mg/dL) Date Value 02/21/2023 13 Creatinine (mg/dL) Date Value 02/21/2023 0.66 Sodium (mmol/L) Date Value 02/21/2023 131 (L) Potassium (mmol/L) Date Value 02/21/2023 4.5 Chloride (mmol/L) Date Value 02/21/2023 92 (L) CO2 (mmol/L) Date Value 02/21/2023 25 Protein, Total (g/dL) Date Value 02/21/2023 6.9 Albumin (g/dL) Date Value 02/21/2023 4.7 Calcium, Total (mg/dL) Date Value 02/21/2023 9.7 Alkaline Phosphatase (U/L) Date Value 02/21/2023 60 Bilirubin, Total (mg/dL) Date Value 02/21/2023 0.2 AST (U/L) Date Value 02/21/2023 21 ALT (U/L) Date Value 02/21/2023 17 MEDICATIONS: metoprolol tartrate, short acting, (LOPRESSOR) 25 mg tabletTake 12.5 mg by mouth two times a day.Disp: Rfl: cloNIDine HCl (CATAPRES) 0.2 mg tabletTake 0.2 mg by mouth two times a day.Disp: Rfl: carBAMazepine (TEGRETOL) 200 mg tabletTAKE 1/2 TABLET BY MOUTH IN THE MORNING AND 1.5 TABLETS IN THE EVENINGDisp: 180 tabletRfl: 1 verapamil SR (CALAN SR) 240 mg CR tablettake 1 tablet by mouth every dayDisp: 90 tabletRfl: 1 progesterone micronized (PROMETRIUM) 200 mg capsuleTake by mouth.Disp: Rfl: Clobetasol Propionate 0.05 % gelApply to affected area.Disp: Rfl: omeprazole (PRILOSEC) 20 mg capsuleDisp: Rfl: meloxicam (MOBIC) 15 mg tabletTake 1 tablet by mouth once daily. for pain. Giovany (more content not included)...[facility]09-20-2024 History of Present illness Narrative* Ab Shaffer Jr., MD - 03/02/2024 3:26 PM EDT ESTABLISHED PATIENT VISIT CHIEF COMPLAINT: Follow Up HISTORY OF PRESENT ILLNESS: Katrina Mancini is a 83 year old female, BMI 22.53 kg/m2 with a PMH significant for and per last office visit of 08/01/23: 1. Dizziness - ICD9: 780.4, ICD10: R42 (primary diagnosis) Resolved with vestibular therapy. Pt did not complete tilt table but asx. Following with cardiologyfor SVT. At this time no additional testing or treatment needed. Encouraged pt to follow instructions of therapies if symptoms were to return. 2. 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 Years since last seizure (see prior notes). Concern that hyponatremia reported by pt (now resolved) possibly due to Tegretol, although no changes in dosing for years with no prior issues. Advised pt to update us on next Na level. If hyponatremic again, should at least consider lowering Tegretol dose given high therapeutic level. May also consider transitioning to alternative ASM. 3. MELA (obstructive sleep apnea) - ICD9: 327.23, ICD10: G47.33 Asx with use of dental appliance. No change in therapy and no need for further testing at this time. 4. Migraine without aura and without status migrainosus, not intractable - ICD9: 346.10, ICD10: G43.009 Asx while take verapamil. BPs stable. Last Na level on record was from 2022 - . Pt reports no dizziness since last visit. 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 D/w pt possible need for antidepressant - states tried through PCP, but cause Na to drop. More recent Na was 135. Pt remains complaint with Tegretol. On Ca/Vit D supplements. No seizures. No dizziness. No migraines (remains on Verapamil and pt states never wants to stop it). Patient using dental appliance. Sleep fragmented due to stress of 's health. She feels it isimproving as recovering. REVIEW OF SYSTEMS GENERAL:No weight loss, malaise [...] SKIN:Negative for lesions, rash, and itching. PSYCHIATRIC: See HPI. LAB/IMAGING: Those performed since patient's last visit have been reviewed. WBC (k/uL) Date Value 02/21/2023 5.85 RBC (m/uL) Date Value 02/21/2023 4.16 Hemoglobin (g/dL) Date Value 02/21/2023 14.4 Hematocrit (%) Date Value 02/21/2023 40.6 MCV (fL) Date Value 02/21/2023 97.6 MCH (pg) Date Value 02/21/2023 34.6 (H) MCHC (g/dL) Date Value 02/21/2023 35.5 RDW-CV (%) Date Value 02/21/2023 11.6 Platelet Count (k/uL) Date Value 02/21/2023 289 MPV (fL) Date Value 02/21/2023 9.0 Glucose (mg/dL) Date Value 02/21/2023 85 BUN (mg/dL) Date Value 02/21/2023 13 Creatinine (mg/dL) Date Value 02/21/2023 0.66 Sodium (mmol/L) Date Value 02/21/2023 131 (L) Potassium (mmol/L) Date Value 02/21/2023 4.5 Chloride (mmol/L) Date Value 02/21/2023 92 (L) CO2 (mmol/L) Date Value 02/21/2023 25 Protein, Total (g/dL) Date Value 02/21/2023 6.9 Albumin (g/dL) Date Value 02/21/2023 4.7 Calcium, Total (mg/dL) Date Value 02/21/2023 9.7 Alkaline Phosphatase (U/L) Date Value 02/21/2023 60 Bilirubin, Total (mg/dL) Date Value 02/21/2023 0.2 AST (U/L) Date Value 02/21/2023 21 ALT (U/L) Date Value 02/21/2023 17 MEDICATIONS: metoprolol tartrate, short acting, (LOPRESSOR) 25 mg tablet^Take 12.5 mg by mouth two times a day.^Disp: ^Rfl: cloNIDine HCl (CATAPRES) 0.2 mg tablet^Take 0.2 mg by mouth two times a day.^Disp: ^Rfl: carBAMazepine (TEGRETOL) 200 mg tablet^TAKE 1/2 TABLET BY MOUTH IN THE MORNING AND 1.5 TABLETS IN THE EVENING^Disp: 180 tablet^Rfl: 1 verapamil SR (CALAN SR) 240 mg CR tablet^take 1 tablet by mouth every day^Disp: 90 tablet^Rfl: 1 progesterone micronized (PROMETRIUM) 200 mg capsule^Take by mouth.^Disp: ^Rfl: Clobetasol Propionate 0.05 % gel^Apply to affected area.^Disp: ^Rfl: omeprazole (PRILOSEC) 20 mg capsule^^Disp: ^Rfl: meloxicam (MOBIC) 15 mg tablet^Take 1 tablet by mouth once daily. for pain. Take with food.^Disp: 90 tablet^Rfl: 3 rosuvastatin (CRESTOR) 10 mg tablet^Take 1 tablet by mouth once daily.^Disp: 90 tablet^Rfl: 3 CALCIUM CARBONATE/VITAMIN D3 (VITAMIN D-3 ORAL)^Take by mouth.^Disp: ^Rfl: triamcinolone 0.1 % paste^by DENTAL route twice daily.^Disp: ^Rfl: multivitamins w-iron(DAILY MULTIPLE VITAMINS WITH IRON TAB)^take one (1) tablet daily ^Disp: ^Rfl: 0 BETAMETHASONE, AUGMENTED 0.05 % TOPICAL GEL^apply on erosions on mouth 2-3 times a day as needed ^Disp: 30 gr ^Rfl: 4 HISTORIES PAST MEDICAL HISTORY Diagnosis Date Benign [...] Never Smokeless tobacco: Never Vaping Use Vaping status: Never Used Substance Use Topics Alcohol use: No Drug use: No PHYSICAL EXAMINATION BP 124/71 (BP Site: Right Arm, BP Position: Sitting) Pulse 61 Wt 58.6 kg (129 lb 3.2 oz) [id number]% BMI 22.53 kg/m GENERAL EXAM: General appearance: NAD, pleasant. HEENT: NC/AT, nasal congestion absent, no oral lesions, membranes moist. Lungs: CTA bilaterally. CV: RRR nl S1, S2 Extr: No cyanosis, clubbing or edema. Skin: Cool to touch. NEUROLOGICAL EXAM: General: Awake, alert, oriented x3 (person,place,time), speech fluent, no dysarthria; comprehension, naming, repetition intact. CN: PERRL, EOMI and without nystagmus, VFF to confrontation, facial sensation and strength are normal and symmetric, hearing is intact to finger rub bilaterally, palate and tongue movements are intact and symmetric. SCM and trapezius strength normal. Motor: Normal tone, bulk and strength (5/5) bilaterally (throughout extremities x4). Coordination: FNF, LALO, HTS intact. No tremors. Sensation: LT, vibration, temperature intact throughout. No evidence of neglect. Gait: Stable with normal stride and arm swing. Assessment and Plan: ASSESSMENT/PLAN: 1. 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 Reported hyponatremia during interim but thought to be due to antidepressant she was started on. Since, the antidepressant has been d/c'd. Scheduled for labs soon through PCP.For now will continue Carbamazepine as previously Rx'd. Will follow up on Carbam/Tegretol level as well (ordered this visit). Refills provided. 2. Hyponatremia - ICD9: 276.1, ICD10: E87.1 See above. 3. MELA (obstructive sleep apnea) - ICD9: 327.23, ICD10: G47.33 Denies s/s. Compliant with oral appliance. No complaints of snoring, AM headache, non-restorative sleep (except if associated with lack of sleep due to caring for on such night). 4. Migraine without aura and without status migrainosus, not intractable - ICD9: 346.10, ICD10: G43.009 Stable. Pt would like to continue Verapamil ER 240mg daily. Vitals stable. Refill provided. 5. Dizziness - ICD9: 780.4, ICD10: R42 Resolved. Ab Shaffer MD Medical Decision Making: Problems: Moderate: 2+ stable chronic illnesses Data: Unique test result(s) reviewed: 1 Unique test(s) ordered: 1 Risk: Moderate: Drug management Medical Decision Making Level: 4 - Moderate [facility] Tele[facility] encounter Note * Telephone Encounter - Marcella Richardson LPN - 02/20/2024 8:44 AM EDT Prescription Refill Information The patient has been identified by name and date of : Yes Caregiver verified no other encounters exist for this prescription request: Yes Caregiver confirmed with patient/requestor that no other refills are due, in the near future, with this provider at this time: Yes The last office visit in the department: 08/01/23 WN Does the patient have a future office visit with this provider/department: Yes 03/02/24 WN Requested Prescriptions Pending Prescriptions Disp Refills carBAMazepine (TEGRETOL) 200 mg tablet [Pharmacy Med Name: CARBAMAZEPINE 200 MG TABLET] 180 tablet 1 Sig: TAKE 1/2 TABLET BY MOUTH IN THE MORNING AND 1.5 TABLETS IN THE EVENING verapamil SR (CALAN SR) 240 mg CR tablet [Pharmacy Med Name: VERAPAMIL ER 240 MG TABLET] 90 tablet 1 Sig: take 1 tablet by mouth every day Marcella Richardson LPN February 20, 2024 8:45 AM [facility]09-09-2024 Miscellaneous Notes* Telephone Encounter - Marcella Richardson LPN - 02/20/2024 8:44 AM EDT Prescription Refill Information The patient has been identified by name and date of : Yes Caregiver verified no other encounters exist for this prescription request: Yes Caregiver confirmed with patient/requestor that no other refills are due, in the near future, with this provider at this time: Yes The last office visit in the department: 08/01/23 LOGAN Does the patient have a future office visit with this provider/department: Yes 03/02/24 WSHELLEY Requested Prescriptions Pending Prescriptions Disp Refills carBAMazepine (TEGRETOL) 200 mg tablet [Pharmacy Med Name: CARBAMAZEPINE 200 MG TABLET] 180 tablet 1 Sig: TAKE 1/2 TABLET BY MOUTH IN THE MORNING AND 1.5 TABLETS IN THE EVENING verapamil SR (CALAN SR) 240 mg CR tablet [Pharmacy Med Name: VERAPAMIL ER 240 MG TABLET] 90 tablet 1 Sig: take 1 tablet by mouth every day Marcella Richardson LPN February 20, 2024 8:45 AM documented in this encounterC[facility] Telephone encounter Note * Telephone Encounter - Marcella Richardson LPN - 10/18/2023 11:37 AM EDT [facility]LES 08/01/23 with [facility] NOV 03/02/24 with [facility] Refill 04/20/23 with qty: 90 and 1 refills Marcella Richardson LPN CHARLES Assessment/Plan ASSESSMENT/PLAN: 1. Dizziness - ICD9: 780.4, ICD10: R42 (primary diagnosis) Resolved with vestibular therapy. Pt did not complete tilt table but asx. Following with cardiologyfor SVT. At this time no additional testing or treatment needed. Encouraged pt to follow instructions of therapies if symptoms were to return. 2. 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 Years since last seizure (see prior notes). Concern that hyponatremia reported by pt (now resolved) possibly due to Tegretol, although no changes in dosing for years with no prior issues. Advised pt to update us on next Na level. If hyponatremic again, should at least consider lowering Tegretol dose given high therapeutic level. May also consider transitioning to alternative ASM. 3. MELA (obstructive sleep apnea) - ICD9: 327.23, ICD10: G47.33 Asx with use of dental appliance. No change in therapy and no need for further testing at this time. 4. Migraine without aura and without status migrainosus, not intractable - ICD9: 346.10, ICD10: G43.009 Asx while take verapamil. BPs stable. Follow up in Fall 2023 at which time will repeat needed labs including Tegretol levels. Sooner follow up prn. Ab Shaffer MD [facility]05-07-2024 Miscellaneous Notes* Telephone Encounter - Marcella Richardson LPN - 10/18/2023 11:37 AM EDT CHARLES 08/01/23 with [facility] NOV 03/02/24 with [facility] Refill 04/20/23 with qty: 90 and 1 refills Marcella Richardson LPN CHARLES Assessment/Plan ASSESSMENT/PLAN: 1. Dizziness - ICD9: 780.4, ICD10: R42 (primary diagnosis) Resolved with vestibular therapy. Pt did not complete tilt table but asx. Following with cardiologyfor SVT. At this time no additional testing or treatment needed. Encouraged pt to follow instructions of therapies if symptoms were to return. 2. 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 Years since last seizure (see prior notes). Concern that hyponatremia reported by pt (now resolved) possibly due to Tegretol, although no changes in dosing for years with no prior issues. Advised pt to update us on next Na level. If hyponatremic again, should at least consider lowering Tegretol dose given high therapeutic level. May also consider transitioning to alternative ASM. 3. MELA (obstructive sleep apnea) - ICD9: 327.23, ICD10: G47.33 Asx with use of dental appliance. No change in therapy and no need for further testing at this time. 4. Migraine without aura and without status migrainosus, not intractable - ICD9: 346.10, ICD10: G43.009 Asx while take verapamil. BPs stable. Follow up in Fall 2023 at which time will repeat needed labs including Tegretol levels. Sooner follow up prn. Ab Shaffer MD documented in this encounterC[facility]02-19-[facility]24 Instructions* Patient Instructions* Ab Shaffer Jr., MD - 08/01/2023 4:42 PM EST 1) Please contact us with your next Na level (phone or mychart). documented in this encounterC[facility]02-19-2024 NoteHNO ID: [id number] Author: AB SHAFFER JR, MD Service: ? Author Type: Physician Type: Progress Notes Filed: 08/01/2023 17:24 Note Text: ESTABLISHED PATIENT VISIT CHIEF COMPLAINT: Follow Up HISTORY OF PRESENT ILLNESS: Katrina Mancini is a 83 year old female, BMI 22.91 kg/m2 with a PMH significant for and per last office visit note of 02/21/23: 1. Dizziness and giddiness - ICD9: 780.4, [...] arrhythmia, dysfunction or possible even large vessel diseasewith history of LICA stenosis on distant carotid doppler found in outsiderecords. Will proceed with tilt table, event monitor and ECHO to furtherevaluate. However, I would also like CTA of [...] referral to autonomic clinic for further evaluation. CTA head and neck on 03/03/23: No large vessel occlusion or significant stenosis. No acute intracranial process. Arterial blood flow was measured to detect acute large vessel occlusion by computer aided detection software: Not Performed. Concordance between software and imaging review: Not Applicable. Free Tegretol: 2.4. ECHO 03/10/23: - Exam indication: Syncope - The left ventricle is normal in size. There is mild concentric left ventricular hypertrophy. Left ventricular systolic function is normal. EF = 64 ? 5% (2D biplane) Grade I left ventricular diastolic dysfunction. - The right ventricle is normal in size. Right ventricular systolic function is normal. - There are no significant valvular abnormalities. - Exam was compared with the prior [facility] echocardiographic exam performed on 11/16/2011. There has been no significant change. Event monitor with SVT and advised pt to see cardiology. Pt reports dizziness resolved with vestibular therapy. If does appear to be coming back, will perform exercises taught and symptoms resolve. Maybe mild symptoms once per month. Pt did see [facility] for SVT and stated on lopressor 12.5mg BID. States no symptoms since on lopressor. However, states was not behaving while was on monitor and was not taking hormone therapy as she was supposed to. Now back on hormone therapy in form of provera, with estrace d/c'd. Pt is having hot flashes. No seizures. No headaches. Pt has had some low Na levels. Note, has been on Tegretol for years. Pt would not want to stop Tegretol. Currently following with renal. No new s/s of MELA. Wearing dental appliance nightly. REVIEW OF SYSTEMS GENERAL:No weight loss, malaise or fevers. HEENT:Negative for frequent or significant headaches, No changes in hearing or vision, no nose bleeds or other nasal problems RESPIRATORY: Negative for cough, wheezing or shortness [...] - EXCEPT that as per HPI above. LAB/IMAGING: Those performed since patient's last visit have been reviewed. WBC (k/uL) Date Value 02/21/2023 5.85 RBC (m/uL) (more content not included)...[facility] History of Present illness Narrative* Ab Shaffer Jr., MD - 08/01/2023 4:24 PM EST ESTABLISHED PATIENT VISIT CHIEF COMPLAINT: Follow Up HISTORY OF PRESENT ILLNESS: Katrina Mancini is a 83 year old female, BMI 22.91 kg/m2 with a PMH significant for and per last office visit note of 02/21/23: 1. Dizziness and giddiness - ICD9: 780.4, [...] including arrhythmia, dysfunction or possible even large vesseldisease with history of LICA stenosis on distant [...] referral to autonomic clinic for further evaluation. CTA head and neck on 03/03/23: No large vessel occlusion or significant stenosis. No acute intracranial process. Arterial blood flow was measured to detect acute large vessel occlusion by computer aided detection software: Not Performed. Concordance between software and imaging review: Not Applicable. Free Tegretol: 2.4. ECHO 03/10/23: - Exam indication: Syncope - The left ventricle is normal in size. There is mild concentric left ventricular hypertrophy. Left ventricular systolic function is normal. EF = 64 5% (2D biplane) Grade I left ventricular diastolic dysfunction. - The right ventricle is normal in size. Right ventricular systolic function is normal. - There are no significant valvular abnormalities. - Exam was compared with the prior echocardiographic exam performed on 11/16/2011. There has been no significant change. Event monitor with SVT and advised pt to see cardiology. Pt reports dizziness resolved with vestibular therapy. If does appear to be coming back, will perform exercises taught and symptoms resolve. Maybe mild symptoms once per month. Pt did see [facility] for SVT and stated on lopressor 12.5mg BID. States no symptoms sinceon lopressor. However, states was not behaving while was on monitor and was not taking hormone therapy as she was supposed to. Now back on hormone therapy in form of provera, with estrace d/c'd. Pt is having hot flashes. No seizures. No headaches. Pt has had some low Na levels. Note, has been on Tegretol for years. Pt would not want to stop Tegretol. Currently following with renal. No new s/s of MELA. Wearing dental appliance nightly. REVIEW OF SYSTEMS GENERAL:No weight loss, malaise or fevers. HEENT:Negative for frequent or significant headaches, No changes in hearing or vision, no nose bleeds or other nasal problems RESPIRATORY: Negative for cough, wheezing or shortness [...] - EXCEPT that as per HPI above. LAB/IMAGING: Those performed since patient's last visit have been reviewed. WBC (k/uL) Date Value 02/21/2023 5.85 RBC (m/uL) Date Value 02/21/2023 4.16 Hemoglobin (g/dL) Date Value 02/21/2023 14.4 Hematocrit (%) Date Value 02/21/2023 40.6 MCV (fL) Date Value 02/21/2023 97.6 MCH (pg) Date Value 02/21/2023 34.6 (H) MCHC (g/dL) Date Value 02/21/2023 35.5 RDW-CV (%) Date Value 02/21/2023 11.6 Platelet Count (k/uL) Date Value 02/21/2023 289 MPV (fL) Date Value 02/21/2023 9.0 Glucose (mg/dL) Date Value 02/21/2023 85 BUN (mg/dL) Date Value 02/21/2023 13 Creatinine (mg/dL) Date Value 02/21/2023 0.66 Sodium (mmol/L) Date Value 02/21/2023 131 (L) Potassium (mmol/L) Date Value 02/21/2023 4.5 Chloride (mmol/L) Date Value 02/21/2023 92 (L) CO2 (mmol/L) Date Value 02/21/2023 25 Protein, Total (g/dL) Date Value 02/21/2023 6.9 Albumin (g/dL) Date Value 02/21/2023 4.7 Calcium, Total (mg/dL) Date Value 02/21/2023 9.7 Alkaline Phosphatase (U/L) Date Value 02/21/2023 60 Bilirubin, Total (mg/dL) Date Value 02/21/2023 0.2 AST (U/L) Date Value 02/21/2023 21 ALT (U/L) Date Value 02/21/2023 17 MEDICATIONS: progesterone micronized (PROMETRIUM) 200 mg capsule^Take by mouth.^Disp: ^Rfl: carBAMazepine (TEGRETOL) 200 mg tablet^TAKE 1/2 TABLET BY MOUTH IN THE MORNING AND 1.5 TABLETS IN THE EVENING^Disp: 180 tablet^Rfl: 0 verapamil SR (CALAN SR) 240 mg CR tablet^take 1 tablet by mouth every day^Disp: 90 tablet^Rfl: 1 omeprazole (PRILOSEC) 20 mg capsule^^Disp: ^Rfl: meloxicam (MOBIC) 15 mg tablet^Take 1 tablet by mouth once daily. for pain. Take with food.^Disp: 90 tablet^Rfl: 3 rosuvastatin (CRESTOR) 10 mg tablet^Take 1 tablet by mouth once daily.^Disp: 90 tablet^Rfl: 3 CALCIUM CARBONATE/VITAMIN D3 (VITAMIN D-3 ORAL)^Take by mouth.^Disp: ^Rfl: multivitamins w-iron(DAILY MULTIPLE VITAMINS WITH IRON TAB)^take one (1) tablet daily ^Disp: ^Rfl: 0 metoprolol tartrate, short acting, (LOPRESSOR) 25 mg tablet^12.5 MG ORALLY TWICE A DAY^Disp: ^Rfl: (Patient not taking: Reported on 08/01/2023) alendronate (FOSAMAX) 70 mg tablet^Take 70 mg by mouth one time a week. In AM with cup of water on empty stomach. Nothing else by mouth and stay upright for 30 min.^Disp: ^Rfl: (Patient not taking: Reported on 02/21/2023) dexamethasone (DECADRON) 0.5 mg/5 mL^Take 2 mg by mouth every 12 hours.^Disp: ^Rfl: (Patient not taking: Reported on 10/20/2022) Clobetasol Propionate 0.05 % gel^Apply to affected area.^Disp: ^Rfl: Omeprazole 40 mg capsule^Take 1 capsule by mouth once daily.^Disp: 90 capsule^Rfl: 3 (Patient not taking: Reported on 04/04/2019 ) tacrolimus (PROTOPIC) 0.1 % ointment^Apply 1 application to affected area twice daily as needed.^Disp: 60 g^Rfl: 0 (Patient not taking: Reported on 10/20/2022) medroxyPROGESTERone (PROVERA, CYCRIN) 10 mg tablet^Take once daily for 14 days every 2-3 months^Disp: 30 tablet^Rfl: 6 (Patient not taking: Reported on 10/20/2022) Estradiol (ESTRACE) 0.5 mg tablet^Take 1 tablet by mouth once daily.^Disp: 90 tablet^Rfl: 3 (Patient not taking: Reported on 08/01/2023) pyridoxine (VITAMIN B-6) 100 mg tablet^Take 1 tablet by mouth once daily.^Disp: ^Rfl: 0 (Patient not taking: Reported on 09/22/2020 ) triamcinolone 0.1 % paste^by DENTAL route twice daily.^Disp: ^Rfl: BETAMETHASONE, AUGMENTED 0.05 % TOPICAL GEL^apply on erosions on mouth 2-3 times a day as needed ^Disp: 30 gr ^Rfl: 4 HISTORIES PAST MEDICAL HISTORY Diagnosis Date Benign [...] No Drug use: No PHYSICAL EXAMINATION BP 136/78 Pulse 77 Resp 16 Wt 59.6 kg (131 lb 6.4 oz) SpO2 97% BMI 22.91 kg/m GENERAL EXAM: General appearance: NAD, pleasant. HEENT: NC/AT, nasal congestion absent, no oral lesions, membranes moist. Anthony exam unremarkable. Lungs: CTA bilaterally. CV: RRR nl S1, S2 Extr: No cyanosis, clubbing or edema. Skin: Cool to touch. NEUROLOGICAL EXAM: General: Awake, alert, oriented x3 (person,place,time), speech fluent, no dysarthria; comprehension, naming, repetition intact. CN: PERRL, fundi with no evidence of papilledema, EOMI and without nystagmus, VFF to confrontation,facial sensation and strength are normal and symmetric, hearing is intact to finger rub bilaterally, palate and tongue movements are intact and symmetric. SCM and trapezius strength normal. Motor: Normal tone, bulk and strength (5/5) bilaterally (throughout extremities x4). Coordination: FNF, LALO, HTS intact. No tremors. Sensation: LT intact throughout. No evidence of neglect. Gait: Stable with normal stride and arm swing. Assessment and Plan: ASSESSMENT/PLAN: 1. Dizziness - ICD9: 780.4, ICD10: R42 (primary diagnosis) Resolved with vestibular therapy. Pt did not complete tilt table but asx. Following with cardiologyfor SVT. At this time no additional testing or treatment needed. Encouraged pt to follow instructions of therapies if symptoms were to return. 2. 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 Years since last seizure (see prior notes). Concern that hyponatremia reported by pt (now resolved) possibly due to Tegretol, although no changes in dosing for years with no prior issues. Advised pt to update us on next Na level. If hyponatremic again, should at least consider lowering Tegretol dose given high therapeutic level. May also consider transitioning to alternative ASM. 3. MELA (obstructive sleep apnea) - ICD9: 327.23, ICD10: G47.33 Asx with use of dental appliance. No change in therapy and no need for further testing at this time. 4. Migraine without aura and without status migrainosus, not intractable - ICD9: 346.10, ICD10: G43.009 Asx while take verapamil. BPs stable. Follow up in Fall 2023 at which time will repeat needed labs including Tegretol levels. Sooner follow up prn. Ab Shaffer MD I spent a total of 30+ minutes on the date of the service which included preparing to see the patient, hihd-zo-gaum patient care, completing clinical documentation, obtaining and/or reviewing separately obtained history, performing a medically appropriate examination, counseling and educating the pa tient/family/caregiver, ordering medications, tests, or procedures, and communicating results to the patient/family/caregiver. * Ab Shaffer Jr., MD - 08/01/2023 4:00 PM EST documented in this encounterCleveland [facility]02-19-2024 NoteHNO ID: [id number] Author: AB SHAFFER JR, MD Service: ? Author Type: Physician Type: Progress Notes Filed: 08/01/2023 17:24 Note Text:[facility]02-12-2024 Miscellaneous Notes* Telephone Encounter - Marcella RichardsonSAYRA - 07/25/2023 12:09 PM EST CHARLES 02/21/23 with [facility] NOV 08/01/23 with [facility] Refill 12/29/22 with qty: 180 and 0 refills Marcella Richardson LPN CHARLES Assessment/Plan ASSESSMENT/PLAN: 1. 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 Ab Shaffer MD * Telephone Encounter - Raquel Devries LPN - 07/25/2023 11:58 AM EST Patient has been identified by name and date of : Yes, Provider Dr. Shaffer Date 07/25/23 Time 11:59 am Patient phones for refill(s): Requested Prescriptions Pending Prescriptions Disp Refills carBAMazepine (TEGRETOL) 200 mg tablet 180 tablet 0 Sig: TAKE 1/2 TABLET BY MOUTH IN THE MORNING AND 1.5 TABLETS IN THE EVENING Date of last office visit 02/21/23 Date of next office visit 08/01/23 Please advise. Thank you. Raquel Devries LPN. documented in this encounterCleveland Clinic Avon [facility]12-14-2023 Procedure [facility]11-17-2023 NoteHNO ID: [id number] Author: Marcella Hercules, PT Service: ? Author Type: Physical Therapist Type: Progress Notes Filed: 04/29/2023 12:37 PM Note Text: Episode Visit Count: 3 Therapist That Will Accept/Oversee The Plan Of Care: Marcella Hercules Start of Care Date: 03/30/23 Onset Date: 10/28/22 Plan of Care Certification Date: 03/30/23 Next Certification Due Date: 05/04/23 [facility]ATION [facility]TS [facility]ER[facility]Y PHYSICAL THERAPY DISCONTINUANCE OF CARE PLAN OF CARE UPDATE: Assessment: Katrina Mancini is discontinued from Physical Therapy services due to maximal benefit.. Patient was seen for 3 visits from Start of Care Date: 03/30/23 to 04/29/2023 and treatment included: Neuromuscular re-education and Self-detention management. Goals for Episode of Care: created [...] with an (*). Patient education as noted. Self-Longterm Management: 1: Encouraged pt. to use SC [...] : 1200 Session Stop Time : 1225 Marcella Hercules, [facility]11-17-2023 History of Present illness Narrative* Marcella Hercules, PT - 04/29/2023 12:03 PM EST Episode Visit Count: 3 Therapist That Will Accept/Oversee The Plan Of Care: Marcella Hercules Start of Care Date: 03/30/23 Onset Date: 10/28/22 Plan of Care Certification Date: 03/30/23 Next Certification Due Date: 05/04/23 REHABILITATION AND SPORTS THERAPY PHYSICAL THERAPY DISCONTINUANCE OF CARE PLAN OF CARE UPDATE: Assessment: Katrina Mancini is discontinued from Physical Therapy services due to maximal benefit.. Patient was seen for 3 visits from Start of Care Date: 03/30/23 to 04/29/2023 and treatment included: Neuromuscular re-education and Self-detention management. Goals for Episode of Care: created [...] having back pain - no nystagmus and pt.asymptomatic TREATMENT: Neuromuscular Re-Education: 1: VOR x1 60 [...] with an (*). Patient education as noted. Self-Longterm Management: 1: Encouraged pt. to use SC [...] : 1200 Session Stop Time : 1225 Marcella Hercules PT documented in this encounterCleveland Clinic [facility]11-08-2023 Miscellaneous Notes* Telephone Encounter - Marcella Richardson LPN - 04/20/2023 10:45 AM EST CHARLES 02/21/23 with [facility] NOV 07/01/23 with [facility] Refill 11/11/22 with qty: 90 and 1 refills Marcella Richardson LPN CHARLES Assessment/Plan 1. Dizziness and giddiness - ICD9: [...] a peripheral etiology (L vestibular system) but Leslie exam performed today (not noted above) unremarkable. Question if BPPV. Will refer for vestibular battery testing as well as vestibular therapy. That said, pt is also endorsing lightheadedness and was orthostatic in office. 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 Ab Shaffer MD documented in this encounterCleveland Clinic [facility]10-27-2023 NoteHNO ID: [id number] Author: Marcella Hercules PT Service: ? Author Type: Physical Therapist Type: Progress Notes Filed: 04/08/2023 10:27 AM Note Text: Episode Visit Count: 2 Therapist That Will Accept/Oversee The Plan Of Care: Marcella Hercules Start of Care Date: 03/30/23 Onset Date: 10/28/22 Plan of Care Certification Date: 03/30/23 Next Certification Due Date: 05/04/23 REHABILITATION AND SPORTS THERAPY PHYSICAL THERAPY TREATMENT NOTE ASSESSMENT: Katrina Mancini tolerated the session with decreased symptoms. She [...] and tactile cueing. Patient education as noted. Self-Longterm Management: 1: PT encouraged pt. to get [...] : 0950 Session Stop Time : 1028 Marcella Hercules, [facility]10-27-2023 History of Present illness Narrative* Marcella Hercules, PT - 04/08/2023 9:53 AM EDT Episode Visit Count: 2 Therapist That Will Accept/Oversee The Plan Of Care: Marcella Hercules Start of Care Date: 03/30/23 Onset Date: 10/28/22 Plan of Care Certification Date: 03/30/23 Next Certification Due Date: 05/04/23 REHABILITATION AND SPORTS THERAPY PHYSICAL THERAPY TREATMENT NOTE ASSESSMENT: Katrina Mancini tolerated the session with decreased symptoms. She [...] and tactile cueing. Patient education as noted. Self-Longterm Management: 1: PT encouraged pt. to get [...] : 50 Session Stop Time : 1028 Marcella Hercules PT documented in this encounterCleveland Clinic [facility] Hospital10-23-2023 Miscellaneous Notes* Telephone Encounter - Marcella Richardson LPN - 04/04/2023 1:01 PM EDT Fax received from [facility] requesting last office note from Dr. Shaffer. Office note dated 02/21/23 faxed to [phone]. Marcella Richardson LPN documented in this encounterCleveland Clinic Avon Hospital10-23-2023 Miscellaneous Notes* Telephone Encounter - Ashley Devries LPN - 04/04/2023 8:49 AM EDT Phone call placed patient advised (see prior provider encounter) Patient verbalized understanding, agreed with plan of care, reported current [employer] Dr Mata,last OV 01/2023, results ( 11 pages) faxed to [phone]. Ashley Devries LPN * Telephone Encounter - Erin Mora OCCA - 04/04/2023 7:20 AM EDT ----- Message from Ab Shaffer Jr., MD sent at 04/01/2023 11:47 PM EDT ----- I would like pt to see cardiology given that it appears run of SVT associated with symptoms. Uncertain if pt has preference of who she would like to see. Otherwise, I will place referral once patientresponds. Ab Shaffer MD documented in this encounterCleveland Clinic Avon Hospital10-18-2023 NoteHNO ID: [id number] Author: Marcella Hercules, PT Service: ? Author Type: Physical Therapist Type: Progress Notes Filed: 03/30/2023 1:34 PM Note Text: Episode Visit Count: 1 Therapist That Will Accept/Oversee The Plan Of Care: Marcella Hercules Start of Care Date: 03/30/23 Onset Date: 10/28/22 Plan of Care Certification Date: 03/30/23 Next Certification Due Date: 05/04/23 Patient Identified by Name and Date of : Yes REHABILITATION AND SPORTS THERAPY PHYSICAL THERAPY EVALUATION PLAN OF CARE: Assessment: Katrina Mancini presents with diagnosis of dizziness and giddiness [...] Planned: 6 Planned Treatment Interventions: Therapeutic exercise (04872), Neuromuscular re-education (09773), Manual therapy (53551), Therapeutic activities (38358), Self-detention management (23068), Gait Training (94226) PLAN FOR NEXT VISIT: FGA as tolerated, [...] Phys Func - Score 32 (moderate dysfunction) (more content not included)... [facility] History of Present illness Narrative* Marcella Hercules, PT - 03/30/2023 11:16 AM EDT Episode Visit Count: 1 Therapist That Will Accept/Oversee The Plan Of Care: Marcella eHrcules Start of Care Date: 03/30/23 Onset Date: 10/28/22 Plan of Care Certification Date: 03/30/23 Next Certification Due Date: 05/04/23 Patient Identified by Name and Date of : Yes REHABILITATION AND SPORTS THERAPY PHYSICAL THERAPY EVALUATION PLAN OF CARE: Assessment: Katrina Mancini presents with diagnosis of dizziness and giddiness that interferes with standing, walking (turning, head movement) . She presents with impairments in ADL's, balance, independence in exercise, overall function, patient reported outcome measures, and symptom management. PROMIS (Patient- Reported Outcomes Measurement Information System) scores were reviewed and physical function domain and self efficacy domain identified as a rehabilitation concern. Prognosis for therapy is Fair due to: chronic nature of impairments, limited tolerance to activity, memory deficits, poor historian . She will benefit from skilled therapy services to meet the goals established for this p lien of care as noted below. Goals for [...] Planned: 6 Planned Treatment Interventions: Therapeutic exercise (60169), Neuromuscular re- education (59969), Manual therapy (62910), Therapeutic activities (03529), Self- detention management (24406), Gait Training (69921) PLAN FOR NEXT VISIT: FGA as tolerated, [...] back pain and imbalance at this time, thereforePT focused to address her chief complaints. Today [...] Education TREATMENT: PT Treatment Interventions: Neuromuscular Re-Education, Self-Longterm Management Evaluation Neuromuscular Re-Education: 1: *Seated Gaze [...] VORx1 seated exercises. Patient education as noted. Self-Longterm Management: 1: *UVL handout printed 2: discussed [...] : 1115 Session Stop Time : 1200 Marcella Hercules PT documented in this encounterCleveland Clinic [facility]10-06-2023 History of Present illness Narrative* Sharonda Duran, PhD - 03/18/2023 12:30 PM EDT Head and Neck [place] Vestibular and Balance Disorders Laboratory Vestibular Test Battery Report Name: Katrina Mancini CCF#: [id number] Date of Service: 03/18/2023 Date of : 1940 Age: [age] year old Referred by: Ab Shaffer Jr., MD And is a patient of Magalys Mcclure MD, MD Referred for: Evaluation of the cause of disorder of hearing, tinnitus, or balance. Referral documented: In an order in [facility] Pretest Instructions: patient did not read instructions but it was confirmed she was not on any anti-dizziness medication prior to testing Impressions and Recommendations OVERALL IMPRESSIONS: Abnormal vestibular evaluation. 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 No signs of active Benign Paroxysmal Positional Vertigo (BPPV). The following history was obtained by way of Katrina Mancini's previous medical record, patient entered questionnaire, and direct patient interview: Katrina Mancini presents with dizziness and lightheadedness. Symptoms began prior to February, but she reported she, has been okay lately becauseshe makes sure to take her time as to not exacerbate any symptoms of dizziness. When the symptoms occur, they last for seconds in duration. Symptoms are provoked by rolling to the left in bed and standing up quickly. Katrina denies any auditory and visual complaints. Of note, Katrina has a history of headaches and migraines, however, they are not associated with dizziness nor occur at similar times/have similar triggers. Katrina takes medication for her migraines and reported they localize to the right when they occur. Additionally, Katrina reported she has had one seizure in the past. Katrina has not fallen two or more times in the past year or fallen once with with injury and reports a fear of falling. Katrina is currently using an ambulatory device: a cane. Aforementioned symptoms are impacting Katrina's quality of life: she avoids moving quickly [...] RECOMMENDATIONS: - Continue medical follow up with Ab Shaffer Jr., MD and Magalys Mcclure MD, . - Consider further fall prevention [...] The results and recommendations were explained to Katrina Mancini and her daughter and they expressed understanding of the information. History Present Illness SUMMARY OF PAST MEDICAL HISTORY: Referring provider Ab Prather Jr., MD: per provider's note on 02/21/2023: Patient reporting some new onset dizziness and unsteadiness since last visit. She is describing both room spinning dizziness when she wakes up in the morning, likely vertiginous, resolving within a few minutes. But she is also experiencing unsteadiness with walking, especially when she turns. Notes that she is stumblin g and has to brace herself. Denies any [...] vertical, oblique): normal Cover uncover test: normal Fifzp-zuazg-inwuq test: normal NECK: Cervical rotation right restrictions: [...] VESTIBULAR MEASURES: Videonystagmography Examination (VNG): CPT codes: 08003, 29299, 01107 Description of Procedure: objective assessment of peripheral [...] presentation of a laser target; .1-.6 Hz, 10- 60 deg/sec): Gain values: normal. Evidence of saccadic pursuit: No. Reported symptoms: none Spontaneous & Gaze-Evoked Nystagmus test: Nystagmus center gaze with fixation: none. Temporal profile: n/a. Saccadic intrusions/oscillations:none. Symptoms: none. Nystagmus center gaze without fixation: [...] left-beating. Temporal profile: decaying. Symptoms: didn't like it. Nystagmus post-vertical head shake: none. Temporal profile: [...] Vertical Semi-circular Canal BPPV Nystagmus tests: Nystagmus Aramndo-Hallpike right ear down position: none. Temporal profile: n/a. Symptoms: dizziness. Nystagmus [place]-Hallpike right ear return to sit position: none. Temporal profile: n/a. Symptoms: dizziness. Nystagmus [place]-Hallpike left ear down position: none. Temporal profile: n/a. Symptoms: none. Nystagmus Armando-Hallpike left ear return to sit position: none. Temporal profile: n/a. Symptoms: none. Nystagmus straight back head-hanging return to sit position: none. Temporal profile: n/a. Symptoms:none. Horizontal Semi-circular Canal BPPV and Positional Nystagmus tests: Nystagmus head center supine: none.Temporal profile: n/a. Symptoms: none. Nystagmus head (roll) right: none. Temporal profile: n/a. Symptoms: none. Nystagmus head (roll) left: none. Temporal profile: n/a. Symptoms: none. Video Head Impulse Test (VHIT): CPT code: 90170 Description of Procedure: assessment of the angular [...] rule out lateral semicircular canal/VOR pathway involvement inthe right ear. Normal lateral semicircular canal VHIT [...] gain < 0.70) Rotational Chair: CPT code 07093 Description of Procedure: objective assessment of peripheral [...] normal. It was my pleasure to evaluate Katrina Mancini. If you have any questions regarding this information, please contact me at [phone]. Tiffanie Whitman BA (Alex) Doctor of Audiology (Shasha) [place] This appointment was conducted under the direct supervision of Sharonda Duran, PhD CCC-A I verify that I have reviewed the history, test results, and interpretation for this patient. Sharonda Duran, PhD CCC-A copy to: Ab Shaffer Jr., MD documented in this encounterCleveland Clinic Avon Hospital10-06-2023 NoteHNO ID: [id number] Author: Sharonda Duran, PhD Service: ? Author Type: Corporate Legal Intern Type: Progress Notes Filed: 03/18/2023 5:14 PM Note Text: Head and Neck [place] [facility] Balance Disorders Laboratory Vestibular Test Battery Report Name: Katrina Mancini CC#: [id number] Date of Service: 03/18/2023 Date of : 1940 Age: [age] year old Referred by: Ab Shaffer Jr., MD And is a patient of Magalys Mcclure MD, MD Referred for: Evaluation of the cause of disorder of hearing, tinnitus, or balance. Referral documented: In an order in [facility] Pretest Instructions: patient did not read instructions but it was confirmed she was not on any anti-dizziness medication prior to testing Impressions and Recommendations OVERALL IMPRESSIONS: Abnormal vestibular evaluation. 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 No signs of active Benign Paroxysmal Positional Vertigo (BPPV). The following history was obtained by way of Katrina Mancini's previous medical record, patient entered questionnaire, and direct patient interview: Katrina Mancini presents with dizziness and lightheadedness. Symptoms began prior to February, but she reported she, has been okay lately because she makes sure to take her time as to not exacerbate any symptoms of dizziness. When the symptoms occur, they last for seconds in duration. Symptoms are provoked by rolling to the left in bed and standing up quickly. Katrina denies any auditory and visual complaints. Of note, Katrina has a history of headaches and migraines, however, they are not associated with dizziness nor occur at similar times/have similar triggers. Katrina takes medication for her migraines and reported they localize to the right when they occur. Additionally, Katrina reported she has had one seizure in the past. Katrina has not fallen two or more times in the past year or fallen once with with injury and reports a fear of falling. Kartina is currently using an ambulatory device: a cane. Aforementioned symptoms are impacting Katrina's quality of life: she avoids moving quickly [...] RECOMMENDATIONS: - Continue medical follow up with Ab Shaffer Jr., MD and Magalys Mcclure MD, . - Consider further fall prevention [...] The results and recommendations were explained to Katrina Mancini and her daughter and they expressed understanding of the information. History Present Illness SUMMARY OF PAST MEDICAL HISTORY: Referring provider Ab Prather Jr., MD: per provider's note on [...] Previously completed vestibular rehab (more content not included)...[facility] Miscellaneous Notes* Telephone Encounter - Ab Shaffer Jr., MD - 03/11/2023 5:51 PM EDT Should be no contraindication. Ab Shaffer MD * Telephone Encounter - Cindi Seay RN - 03/11/2023 3:36 PM EDT Received voicemail 03-11-23 at 3:18 PM. Patient [...] there would be any contraindications of having theZIO on and going to vestibular therapy, but at this time no contraindications were seen. Patient is just concerned, does not want to get all the way to main campus, and then unable to complete visit. Forwarding to Dr. Shaffer for review. * Telephone Encounter - Cindi Seay RN - 03/11/2023 2:50 PM EDT Received voicemail 03-11-23 at 10:28 AM. This is Katrina Mancini, date 36. I need to speak to a nurse I can't go through this on our recording. Call back to patient. No answer. Left voicemail to return call. documented in this encounterCleveland Clinic [facility]on Hospital09-21-2023 History of Present illness Narrative* Jonelle Walker, RT(R) - 03/03/2023 1:00 PM EDT Radiology Service Progress Note DATE OF SERVICE: [...] Corrected Disregard results. Specimen incorrectly identified. Comment: [id number] SILVIA Account Credited Corrected on 10/31 AT 1733: Previously reported as 1.61 Estimated Glomerular Filtration Rate Date Value Ref Range Status 02/21/2023 87 >=60 mL/min/1.73m Final Comment: Estimated Glomerular Filtration Rate (eGFR) is calculated using the 2020 CKD-EPI creatinine equation. This equation utilizes serum creatinine, sex, and age as parameters. The creatinine assay has traceable calibration to isotope dilution- mass spectrometry. Refer to KDIGO guidelines for clinical interpretation. In patients with unstable renal function, e.g. those with acute kidney injury, the eGFRmay not accurately reflect actual GFR. eGFR- Date Value Ref Range Status 10/31/2017 Corrected Disregard results. Specimen incorrectly identified. Comment: [id number] SILVIA Account Credited Corrected on 10/31 AT 1733: Previously reported as 37 P.O.C.T. RESULTS: POC done: Yes, See Lab Tab March 03, 2023 TREATMENT: N/A PERIPHERAL IV DATA: Ambulatory: A peripheral IV was started in the Left antecubital site with a Angio cath: 18 gauge. RADIOLOGY DEPARTMENT: CT; Exam(s) Completed: Brain , CTA Brain , and CTA Neck SIGNATURE: RT Ketty(Quinn) PATIENT NAME: Katrina Mancini DATE: March 03, 2023 TIME: 2:26 PM documented in this encounterCleveland Clinic Avon Hospital09-12-2023 Miscellaneous Notes* Telephone Encounter - Marcella Richardson LPN - 02/22/2023 12:46 PM EDT TC to pt who voiced understanding of below. Pt states she will see PCP next month. Lab results faxed to PCP, per request. Marcella Richardson LPN * Telephone Encounter - Vicenta Chirinos PA-C - 02/22/2023 12:36 PM EDT Patient's sodium is low. Tegretol can lower sodium levels, but will have her follow with PCP for further monitoring and evaluation. documented in this encounterCleveland Clinic [facility]on Hospital09-11-2023 Miscellaneous Notes* Telephone Encounter - Erin Mora OCCA - 02/21/2023 12:13 PM EDT Zio monitor order, patients demographics and face sheet faxed to [phone] as instructed. JESUS Posadas documented in this encounterCleveland Clinic [facility] Hospital09-11-2023 History of Present illness Narrative* Ab Shaffer Jr., MD - 02/21/2023 11:39 AM EDT ESTABLISHED PATIENT VISIT CHIEF COMPLAINT: Follow Up HISTORY OF PRESENT ILLNESS: Katrina Mancini is a 82 year old female, BMI 23.16 kg/m2 with a PMH significant for and per last office visit with Abel DUNN on 10/20/22: 1. 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 Encounter for medication monitoring - ICD9: V58.83, ICD10: Z51.81 Patient without any recurrence of seizure activity, compliant with her Tegretol. Notes that she hadrecent blood work from her primary care physician [...] unsteadiness with walking, especially when she turns. Notesthat she is stumbling and has to brace herself. Denies any falls or weakness. Denies any signs or sy mptoms of cord compression at this time including bowel or bladder incontinence, saddle anesthesia.Does report chronic neck pain. Also has difficulty with weakness in bilateral hands but is noted tohave bilateral carpal tunnel syndrome. Patient did have [...] new onset dizziness and gait change, will alsoobtain MRI of the brain with and without [...] and holding things. Patient has not seen [facility] in some time, does not want [...] the head. BURNS, but denies palpitations or chestpain. Headaches stable. Carpal tunnel unchanged but never [...] including arrhythmia, dysfunction or possible even large vesseldisease with history of LICA stenosis on distant [...] referral to autonomic clinic for further evaluation. Ab Shaffer MD I spent a total of 40 minutes on the date of the service which included preparing to see the patient, [id number] patient care, completing clinical documentation, obtaining and/or reviewing separately obtained history, performing a medically appropriate examination, counseling and educating the pat ient/family/caregiver, ordering medications, tests, or procedures, independently interpreting results (not separately reported), and communicating results to the patient/family/caregiver. documented in this encounterCleveland Clinic [facility]08-02-2023 Miscellaneous Notes* Telephone Encounter - Abel Medina RN - 01/12/2023 11:19 AM EDT Faxed MRI brain/cervical spine results from 11/29/[address] Beavers per Fabi request. Faxed results to [phone]. documented in this encounterC[facility]23 Miscellaneous Notes* Addendum Note - Vicenta Chirinos PA-C - 12/29/2022 12:18 PM EDTAddended by: VICENTA CHIRINOS on: 12/29/2022 12:18 PM Modules accepted: Orders * Telephone Encounter - Vicenta Chirinos PA-C - 12/29/2022 12:17 PM EDT Will need CBC and CMP before next refill of Tegretol. Refill sent. * Telephone Encounter - Marcella Richardson LPN - 12/29/2022 11:11 AM EDT CHARLES 10/20/22 with MQ NOV 01/12/23 with MQ Refill 09/20/22 with qty: 180 and 0 refills Marcella Richardson LPN CHARLES Assessment/Plan ASSESSMENT/PLAN: 1. 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 Encounter for medication monitoring - ICD9: V58.83, ICD10: Z51.81 Patient without any recurrence of seizure activity, compliant with her Tegretol. Notes that she hadrecent blood work from her primary care physician [...] unsteadiness with walking, especially when she turns. Notesthat she is stumbling and has to brace herself. Denies any falls or weakness. Denies any signs or sy mptoms of cord compression at this time including bowel or bladder incontinence, saddle anesthesia.Does report chronic neck pain. Also has difficulty with weakness in bilateral hands but is noted tohave bilateral carpal tunnel syndrome. Patient did have [...] new onset dizziness and gait change, will alsoobtain MRI of the brain with and without [...] worsen. Vicenta Chirinos PA-C documented in this encounterC[facility]07-07-[facility]23 History of Present illness Narrative* Marcella Hercules, PT - 12/17/2022 2:00 PM EDT Episode Visit Count: 2 Therapist That Will Accept/Oversee The Plan Of Care: Marcella LatoyaAnthony Start of Care Date: 12/01/22 Onset Date: 10/31/22 Plan of Care Certification Date: 12/01/22 Next Certification Due Date: 01/05/23 REHABILITATION AND SPORTS THERAPY PHYSICAL THERAPY TREATMENT NOTE ASSESSMENT: Katrina Mancini tolerated the session with increased symptoms. She demonstrated difficulty with dynamic balance activities on FGA that involved head movement or closing the eyes. Pt. Hadthe most difficulty with closing the eyes on a compliant surface during mCTSIB testing. The patientwill continue to benefit from ongoing skilled physical [...] Major limitation (feels tighter) Lumbar R Side Moran: Produces Lumbar L Side Moran: Moderate limitation Lumbar R Side-Bend: Produces, Major [...] impairment- performs R/L head turns with moderate changein gait velocity, slows down, staggers but recovers, [...] exercises in regards to decreasing fatigue , includingbalance, increase ease of ADL, and ROM and function . Patient education as noted. Neuromuscular Re-Education: 1: romberg firm surface EO 30 sec 2: romberg firm surface EC 30 sec 3: romberg foam surface EO 30 sec 4: romberg foam surface EC x3 attempts 5: FGA test without AD score 1830 Skilled Intervention: Skilled judgment used to assess appropriate program for balance and coordination activity. Education in proprioceptive/kinesthetic awareness during standing and dynamic activities. Ensured patient safety with use of gait belt. Patient education as noted. Self-Longterm Management: 1: *discussed FGA test results and [...] 5 Total Treatment Time Minutes (timed/untimed): 40 Marcella Hercules PT documented in this encounterCleveland Clinic [facility]06-21-2023 History of Present illness Narrative* Marcella Hercules PT - 12/01/2022 11:24 AM EDT Episode Visit Count: 1 Therapist That Will Accept/Oversee The Plan Of Care: Marcella Hercules Start of Care Date: 12/01/22 Onset Date: 10/31/22 Plan of Care Certification Date: 12/01/22 Next Certification Due Date: 01/05/23 Patient Identified by Name and Date of : Yes REHABILITATION AND SPORTS THERAPY PHYSICAL THERAPY EVALUATION PLAN OF CARE: Assessment: Katrina Mancini presents with diagnosis of dizziness and unsteadiness that interferes with bending, walking in the community . She presents with impairments in ADL's, balance, gait, independence in exercise, joint mobility, overall function, patient reported outcome measures, posture, r kathy of motion, strength, and symptom management. PROMIS [...] 6 Planned Treatment Interventions: Canalith Repositioning Maneuvers (22414), Gait Training (82116), Self-detention management (46947), Therapeutic activities (22179), Manual therapy (08421), Neuromuscular re-education (76272), Therapeutic exercise (54210) PLAN FOR NEXT VISIT: FGA balance testing, assess lumbar spine pain Patient demonstrates good understanding of plan of care and treatment. The above goals and plan of care were discussed and agreed upon by patient/family. SUBJECTIVE: Katrina Mancini is a 82 year old female seen today for for vertigo symptoms with supine <> sitting and turning the head. Pt. describes symptoms as sudden, room spinning, and lasting only a few moments. Resolves completely with being still. No dizziness felt at rest. Pt. has not had another episode of vertigo with positional changes for at least a month. MRI of head/neck shows ce rvical spine degenerative changes. Pt. mentions unsteadiness on her feet due to weakness as well aschronic LBP. She has a history of lumbar spinal fusion as well as BLE GABRIEL. The left GABRIEL was reviseddue to incorrect size. She reports that her [...] present Head Shake: Negative Positional Testing Right Armando-Hallpike: Asymptomatic, No nystagmus Left Armando-Hallpike: No nystagmus, [...] States/Identifies, Return Demonstration TREATMENT: PT Treatment Interventions: Self-Longterm Management Evaluation Self-Longterm Management: 1: *discussed at length BPPV dx, [...] 20 Total Treatment Time Minutes (timed/untimed): 40 Marcella Hercules PT documented in this encounterCleveland Clinic [facility]06-20-2023 Miscellaneous Notes* Telephone Encounter - Marcella Richardson LPN - 11/30/2022 12:57 PM EDT TC to pt with results. Pt will call general neurology number to make follow up appointment with [facility]. Marcella Richardson LPN * Telephone Encounter - Vicenta Chirinos PA-C - 11/30/2022 10:44 AM EDT MRI of the brain shows chronic changes but nothing acute. MRI of the cervical spine does show mild to moderate narrowing of the spinal canal as well as some degenerative changes. However, there is noacute pinching or compression of the spinal cord and the actual spinal cord looks normal. For this,would like to see a spinal specialist to monitor this condition and for further evaluation. Consulthas been placed. documented in this encounterC[facility] Clinic [facility]06-19-2023 History of Present illness Narrative* Rebeca Hooker RT(R) - 11/29/2022 1:40 PM EDT Radiology Service Progress Note DATE OF SERVICE: [...] Cervical spine SIGNATURE: RT Sander(Quinn) PATIENT NAME: Katrina Mancini DATE: November 29, 2022 TIME: 1:51 PM documented in this encounterCleveland Clinic [facility]06-01-2023 Miscellaneous Notes* Telephone Encounter - Marcella Richardson LPN - 11/11/2022 10:32 AM EDT Pt has follow up with Vicenta Chirinos January 2023. Marcella Richardson LPN * Telephone Encounter - Ab Shaffer Jr., MD - 11/11/2022 10:20 AM EDT Note pt needs follow up to review BP, confirm control of symptoms and check labs. Ab Shaffer MD * Telephone Encounter - Casandra Major LPN - 11/09/2022 12:20 PM EDT Last OV: 10/20/22 - Next appt scheduled: [...] patient. Casandra Major LPN documented in this encounterCleveland Clinic [facility]05-10-2023 Instructions* Patient Instructions* Vicenta Chirinos PA-C - 10/20/2022 4:19 PM EDT Continue medication regimen MRI of the brain and neck Vestibular therapy Follow up in 2 months documented in this encounterC[facility] Clinic [facility]05-10-2023 History of Present illness Narrative* Vicenta Chirinos PA-C - 10/20/2022 3:41 PM EDT ESTABLISHED PATIENT VISIT Last visit: 06/26/21 with [...] specialist as above. Follow up 1 year. Ab Shaffer MD CHIEF COMPLAINT: follow up HISTORY OF PRESENT ILLNESS: Katrina Mancini is a 82 year old female, There [...] mild worsening of her hands and feet, primarilyher feet. 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 She states she can still feel her feet,but states that they feel chilled, although to the touch they are not cold. No falls, no weakness. Patient has declined EMG in the past, laboratory studies have been unremarkable. No history of diabetes. Patient states that she does not wear her splints at night, notes some difficulty playing cardsand using her hands during the day. Since [...] is shifting or moving, lasting for a fewminutes and resolves completely. Not brought on by [...] disturbance, mood disorder and recent psychosocial stressors. HEMATOLOGIC/LYMPHATIC/IMMUNOLOGIC:Negative for prolonged bleeding, bruising easily or swollen [...] dysarthria; comprehension, naming, repetition intact. Short and intermodal customer service memory intact. CN: PERRL, EOMI patient with [...] compliant with her Tegretol. Notes that she hadrecent blood work from her primary care physician [...] unsteadiness with walking, especially when she turns. Notesthat she is stumbling and has to brace herself. Denies any falls or weakness. Denies any signs or sy mptoms of cord compression at this time including bowel or bladder incontinence, saddle anesthesia.Does report chronic neck pain. Also has difficulty with weakness in bilateral hands but is noted tohave bilateral carpal tunnel syndrome. Patient did have [...] new onset dizziness and gait change, will alsoobtain MRI of the brain with and without [...] and holding things. Patient has not seen [facility] in some time, does not want [...] which included preparing to see the patient, [id number] patient care, completing clinical documentation, obtaining and/or reviewing separately obtained history, performing a medically appropriate examination, counseling and educating the pat ient/family/caregiver, and ordering medications, tests, or procedures. This document has been created with the use of voice recognition technology. It may contain inaccuracies: (e.g. misspellings, inaccurate syntax or word sense) that have escaped review. documented in this encounterCleveland Clinic [facility]04-10-2023 Miscellaneous Notes* Telephone Encounter - Marcella Richardson LPN - 09/20/2022 12:06 PM EDT Pt made appt for October with Vicenta Chirinos. Marcella Richardson LPN * Telephone Encounter - Ab Shaffer Jr., MD - 09/20/2022 11:36 AM EDT Needs sooner follow up. Please schedule with Abel DUNN. Ab Shaffer MD * Telephone Encounter - Moose Tristan LPN - 09/20/2022 8:45 AM EDT CHARLES: 06/26/21 with [place] NOV: 02/21/23 with [...] specialist as above. Follow up 1 year. Ab Shaffer MD documented in this encounterCleveland Clinic [facility]02-20-2023 Miscellaneous Notes* Telephone Encounter - Michelle Nowak RN - 08/02/2022 3:18 PM EST Patient calling for refill of verapamil. Patient has been identified by name and date of : Yes Patient phones for refill(s): Requested Prescriptions Pending Prescriptions Disp Refills verapamil SR (CALAN SR, ISOPTIN SR) 240 mg CR tablet 90 tablet 3 Sig: Take 1 tablet by mouth once daily. Date of last office visit in primary care: CHARLES Neurology: 06/26/21, APR Neurology: 08/12/22 Last 2 Encounter Wt Readings: Date: Wt: 06/26/2021 64 kg (141 lb) 09/22/2020 66.3 kg (146 lb 3.2 oz) Michelle Nowak RN documented in this encounterCleveland Clinic [facility]05-12-2022 Miscellaneous Notes* Telephone Encounter - Felisha Evans LPN - 10/22/2021 1:19 PM EDT Patient notified and voices understanding. * Telephone Encounter - Ab Shaffer Jr., MD - 10/22/2021 11:59 AM EDT Open in error. * Telephone Encounter - Ab Shaffer Jr., MD - 10/22/2021 11:57 AM EDT If pt is having possible side effects, can reduce tegretol from 1/2 tab in AM and 1 and 1/2 tab in PM to 1/2 tab in AM and 1 tab in PM. However, seizure threshold may lower with change and thus, would advise pt not to drive or operate heavy machinery during this transition for risk of possible seizure. Ab Shaffer MD * Telephone Encounter - Felisha Evans LPN - 10/22/2021 11:31 AM EDT Patient states it is at a high normal and she is feeling more tired and asking if she can decrease her medication a little. * Telephone Encounter - Ab Shaffer Jr., MD - 10/22/2021 11:25 AM EDT Lab was within an acceptable range. Please determine patient's specific concern. Thank you, Ab Shaffer MD * Telephone Encounter - Felisha Evans LPN - 10/22/2021 11:22 AM EDT Patient is concerned with the Carbamazepine results. * Telephone Encounter - Sugey Julien - 10/22/2021 11:00 AM EDT Pt expressed concern about a recent lab result. Please call pt and advise. Thank you, Sugey Julien documented in this encounterCleveland Clinic [facility]04-07-2022 Miscellaneous Notes* Telephone Encounter - Virginie Salcido LPN - 09/17/2021 2:42 PM EDT Message left on voicemail that order in to have lab drawn. Virginie Salcido LPN * Telephone Encounter - Ab Shaffer Jr., MD - 09/17/2021 2:17 PM EDT Will check Tegretol level. Ab Shaffer MD * Telephone Encounter - Virginie Salcido LPN - 09/17/2021 1:47 PM EDT Patient wanting to update Dr. Shaffer that Dr. Mcclure has not been checking patient's Carbamazepinelevels. Leaving for Dr Shaffer to address per patient. Virginie Salcido LPN documented in this encounterCleveland Clinic [facility]01-24-2012 History of Past illness Narrative* Problem Noted Date Resolved Date Postmenopausal bleeding 07/06/2011 03/14/20 12 Urgency of urination 05/12/2009 05/29/2010 SOMNOLENCE 01/03/2006 03/17/2016 HYPERLIPIDEMIA NEC/NOS 02/02/2005 6 documented as of this encounter (statuses as of 09/17/2021) [facility] Narrative* Problem Noted Date Resolved Date Postmenopausal bleeding 07/06/2011 03/14/20 12 Urgency of urination 05/12/2009 05/29/2010 SOMNOLENCE 01/03/2006 03/17/2016 HYPERLIPIDEMIA NEC/NOS 02/02/2005 6 documented as of this encounter (statuses as of 10/22/2021) [facility] Narrative* Problem Noted Date Resolved Date Postmenopausal bleeding 07/06/2011 03/14/20 12 Urgency of urination 05/12/2009 05/29/2010 SOMNOLENCE 01/03/2006 03/17/2016 HYPERLIPIDEMIA NEC/NOS 02/02/2005 6 documented as of this encounter (statuses as of 06/17/2022) [facility] Narrative* Problem Noted Date Resolved Date Postmenopausal bleeding 07/06/2011 03/14/20 12 Urgency of urination 05/12/2009 05/29/2010 SOMNOLENCE 01/03/2006 03/17/2016 HYPERLIPIDEMIA NEC/NOS 02/02/2005 6 documented as of this encounter (statuses as of 08/03/2022) [address]24-2012 History of Past illness Narrative* Problem Noted Date Resolved Date Postmenopausal bleeding 07/06/2011 03/14/20 12 Urgency of urination 05/12/2009 05/29/2010 SOMNOLENCE 01/03/2006 03/17/2016 HYPERLIPIDEMIA NEC/NOS 02/02/2005 6 documented as of this encounter (statuses as of 09/20/2022) [address]24[address]2012 History of Past illness Narrative* Problem Noted Date Resolved Date Postmenopausal bleeding 07/06/2011 03/14/20 12 Urgency of urination 05/12/2009 05/29/2010 SOMNOLENCE 01/03/2006 03/17/2016 HYPERLIPIDEMIA NEC/NOS 02/02/2005 6 documented as of this encounter (statuses as of 10/21/2022) [address]24[address]2012 History of Past illness Narrative* Problem Noted Date Resolved Date Postmenopausal bleeding 07/06/2011 03/14/20 12 Urgency of urination 05/12/2009 05/29/2010 SOMNOLENCE 01/03/2006 03/17/2016 HYPERLIPIDEMIA NEC/NOS 02/02/2005 6 documented as of this encounter (statuses as of 11/11/2022) [address]24[address]2012 History of Past illness Narrative* Problem Noted Date Resolved Date Postmenopausal bleeding 07/06/2011 03/14/20 12 Urgency of urination 05/12/2009 05/29/2010 SOMNOLENCE 01/03/2006 03/17/2016 HYPERLIPIDEMIA NEC/NOS 02/02/2005 6 documented as of this encounter (statuses as of 11/30/2022) [address]24[address]2012 History of Past illness Narrative* Problem Noted Date Resolved Date Postmenopausal bleeding 07/06/2011 03/14/20 12 Urgency of urination 05/12/2009 05/29/2010 SOMNOLENCE 01/03/2006 03/17/2016 HYPERLIPIDEMIA NEC/NOS 02/02/2005 6 documented as of this encounter (statuses as of 12/01/2022) [address]24-2012 History of Past illness Narrative* Problem Noted Date Resolved Date Postmenopausal bleeding 07/06/2011 03/14/20 12 Urgency of urination 05/12/2009 05/29/2010 SOMNOLENCE 01/03/2006 03/17/2016 HYPERLIPIDEMIA NEC/NOS 02/02/2005 6 documented as of this encounter (statuses as of 12/17/2022) [address]24-2012 History of Past illness Narrative* Problem Noted Date Diagnosed Date Resolved Date Postmenopausal bleeding 07/06/201107/2011 Urgency of urination 05/12/2009 010 SOMNOLENCE 01/03/2006 03/17/2016 HYPERLIPIDEMIA NEC/NOS 02/02/200508/25 documented as of this encounter (statuses as of 12/29/2022) [facility] Narrative* Problem Noted Date Diagnosed Date Resolved Date Postmenopausal bleeding 07/06/201107/2011 Urgency of urination 05/12/2009 010 SOMNOLENCE 01/03/2006 03/17/2016 HYPERLIPIDEMIA NEC/NOS 02/02/200508/25 documented as of this encounter (statuses as of 01/12/2023) [address]24-2012 History of Past illness Narrative* Problem Noted Date Diagnosed Date Resolved Date Postmenopausal bleeding 07/06/201107/2011 Urgency of urination 05/12/2009 010 SOMNOLENCE 01/03/2006 03/17/2016 HYPERLIPIDEMIA NEC/NOS 02/02/200508/25 documented as of this encounter (statuses as of 02/21/2023) [facility] Narrative* Problem Noted Date Diagnosed Date Resolved Date Postmenopausal bleeding 07/06/201107/2011 Urgency of urination 05/12/2009 010 SOMNOLENCE 01/03/2006 03/17/2016 HYPERLIPIDEMIA NEC/NOS 02/02/200508/25 documented as of this encounter (statuses as of 02/22/2023) [address]24-2012 History of Past illness Narrative* Problem Noted Date Diagnosed Date Resolved Date Postmenopausal bleeding 07/06/201107/2011 Urgency of urination 05/12/2009 010 SOMNOLENCE 01/03/2006 03/17/2016 HYPERLIPIDEMIA NEC/NOS 02/02/200508/25 documented as of this encounter (statuses as of 02/22/2023) [address]24-2012 History of Past illness Narrative* Problem Noted Date Diagnosed Date Resolved Date Postmenopausal bleeding 07/06/201107/2011 Urgency of urination 05/12/2009 010 SOMNOLENCE 01/03/2006 03/17/2016 HYPERLIPIDEMIA NEC/NOS 02/02/200508/25 documented as of this encounter (statuses as of 03/12/2023) [address]24-2012 History of Past illness Narrative* Problem Noted Date Diagnosed Date Resolved Date Postmenopausal bleeding 07/06/201107/2011 Urgency of urination 05/12/2009 010 SOMNOLENCE 01/03/2006 03/17/2016 HYPERLIPIDEMIA NEC/NOS 02/02/200508/25 documented as of this encounter (statuses as of 03/19/2023) [address]24-2012 History of Past illness Narrative* Problem Noted Date Diagnosed Date Resolved Date Postmenopausal bleeding 07/06/201107/2011 Urgency of urination 05/12/2009 010 SOMNOLENCE 01/03/2006 03/17/2016 HYPERLIPIDEMIA NEC/NOS 02/02/200508/25 documented as of this encounter (statuses as of 03/30/2023) [facility] Narrative* Problem Noted Date Diagnosed Date Resolved Date Postmenopausal bleeding 07/06/201107/2011 Urgency of urination 05/12/2009 010 SOMNOLENCE 01/03/2006 03/17/2016 HYPERLIPIDEMIA NEC/NOS 02/02/200508/25 documented as of this encounter (statuses as of 04/04/2023) [address]24-2012 History of Past illness Narrative* Problem Noted Date Diagnosed Date Resolved Date Postmenopausal bleeding 07/06/201107/2011 Urgency of urination 05/12/2009 010 SOMNOLENCE 01/03/2006 03/17/2016 HYPERLIPIDEMIA NEC/NOS 02/02/200508/25 documented as of this encounter (statuses as of 04/08/2023) [address]24[address]2012 History of Past illness Narrative* Problem Noted Date Diagnosed Date Resolved Date Postmenopausal bleeding 07/06/201107/2011 Urgency of urination 05/12/2009 010 SOMNOLENCE 01/03/2006 03/17/2016 HYPERLIPIDEMIA NEC/NOS 02/02/200508/25 documented as of this encounter (statuses as of 04/15/2023) [facility]arrative* Problem Noted Date Diagnosed Date Resolved Date Postmenopausal bleeding 07/06/201107/2011 Urgency of urination 05/12/2009 010 SOMNOLENCE 01/03/2006 03/17/2016 HYPERLIPIDEMIA NEC/NOS 02/02/200508/25 documented as of this encounter (statuses as of 04/15/2023) [facility]ative* Problem Noted Date Diagnosed Date Resolved Date Postmenopausal bleeding 07/06/201107/2011 Urgency of urination 05/12/2009 010 SOMNOLENCE 01/03/2006 03/17/2016 HYPERLIPIDEMIA NEC/NOS 02/02/200508/25 documented as of this encounter (statuses as of 04/15/2023) [facility]ative* Problem Noted Date Diagnosed Date Resolved Date Postmenopausal bleeding 07/06/201107/2011 Urgency of urination 05/12/2009 010 SOMNOLENCE 01/03/2006 03/17/2016 HYPERLIPIDEMIA NEC/NOS 02/02/200508/25 documented as of this encounter (statuses as of 04/21/2023) [facility] Narrative* Problem Noted Date Diagnosed Date Resolved Date Postmenopausal bleeding 07/06/201107/2011 Urgency of urination 05/12/2009 010 SOMNOLENCE 01/03/2006 03/17/2016 HYPERLIPIDEMIA NEC/NOS 02/02/200508/25 documented as of this encounter (statuses as of 04/29/2023) [facility] Narrative* Problem Noted Date Diagnosed Date Resolved Date Postmenopausal bleeding 07/06/201107/2011 Urgency of urination 05/12/2009 010 SOMNOLENCE 01/03/2006 03/17/2016 HYPERLIPIDEMIA NEC/NOS 02/02/200508/25 documented as of this encounter (statuses as of 07/26/2023) [facility] Narrative* Problem Noted Date Diagnosed Date Resolved Date Postmenopausal bleeding 07/06/201107/2011 Urgency of urination 05/12/2009 010 SOMNOLENCE 01/03/2006 03/17/2016 HYPERLIPIDEMIA NEC/NOS 02/02/200508/25 documented as of this encounter (statuses as of 08/01/2023) [facility] + Plan note No data available for this section [facility] Evaluation note* Diagnosis 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 documented in this encounter [facility] note* Diagnosis 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 documented in this encounter [facility] noteNo assessment information availableWMiddletown Hospital Work Phone: Evaluation note* Diagnosis Onset Date Resolution Status Orthopedic aftercare noneact jessenia [facility] Work Phone: Evaluation note* Diagnosis Onset Date Resolution Status Orthopedic aftercare noneact jessenia Encounter for routine gynecological examination noneactive [facility] Work Phone: Evaluation note* Diagnosis Onset Date Resolution Status Encounter for routine gynecological examination noneactive [facility] Work Phone: Evaluation note* Diagnosis Generalized convulsive epilepsy (HCC) Generalized convulsive epilepsy without mention of intractable epilepsy documented in this encounter [facility] note* Diagnosis Generalized convulsive epilepsy (HCC)- Primary [...] Carpal tunnel syndrome [facility] Diagnosis Cervical stenosis of spinal canal- Primary Spinal stenosis in cervical region [facility] this encounter [facility] [place] [facility]* Diagnosis Unsteadiness- Primary Abnormality of gait Dizziness Dizziness and giddiness [facility] [place] [facility]* Diagnosis Dizziness- Primary Dizziness and giddiness Unsteadiness Abnormality of gait documented in this encounter [facility], [place]* Diagnosis Generalized convulsive epilepsy (HCC) Generalized convulsive epilepsy without mention of intractable epilepsy [facility] [place] [facility] Diagnosis Dizziness and giddiness- Primary Lightheadedness [...] of circulatory system [facility] [place] [facility]* Diagnosis Dizziness- Primary Dizziness and giddiness Vestibular dysfunction, right Lightheaded Dizziness and giddiness Lightheadedness Dizziness and giddiness [facility] [place] [facility]* Diagnosis Dizziness and giddiness- Primary Lightheaded Dizziness and giddiness Lightheadedness Dizziness and giddiness [facility] [place] [facility]* Diagnosis Onset Date Resolution Status Climacteric acute Postmenopausal bleeding [facility] Work Phone: Evaluation note* Diagnosis Dizziness and giddiness- Primary Lightheaded Dizziness and giddiness Lightheadedness Dizziness and giddiness [facility] [place] [facility]* Diagnosis Dizziness Dizziness and giddiness Unsteadiness Abnormality of gait Lightheaded Dizziness and giddiness Lightheadedness Dizziness and giddiness [facility] [place] [facility]* Diagnosis Dizziness Dizziness and giddiness Unsteadiness Abnormality of gait Lightheaded Dizziness and giddiness Lightheadedness Dizziness and giddiness documented [facility] [place] [facility]* Diagnosis Dizziness and giddiness Lightheadedness Dizziness and giddiness History of carotid stenosis Personal history of other diseases of circulatory system Lightheaded Dizziness and giddiness Lightheadedness Dizziness and giddiness [facility] [place] [facility]* Diagnosis Onset Date Resolution Status 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 Epilepsy chronic Hypertension chronic Migraine chronic Supraventricular tachycardia chronic Unsteadiness chronic Vestibular disorder chronic [facility] Work Phone: Evaluation note* Diagnosis Dizziness and giddiness- Primary [facility] [place] [facility]* Diagnosis Generalized convulsive epilepsy (HCC) Generalized convulsive epilepsy without mention of intractable epilepsy [facility] [place] [facility]* Diagnosis Dizziness- Primary Dizziness and giddiness Generalized convulsive epilepsy (HCC) Generalized convulsive epilepsy without mention of intractable epilepsy MELA (obstructive sleep apnea) Obstructive sleep apnea (adult) (pediatric) Migraine without aura and without status migrainosus, not intractable Migraine without aura, without mention of intractable migraine without mention of status migrainosus Hyponatremia Hyposmolality and/or hyponatremia documented [facility] [place] [facility]* Diagnosis Onset Date Resolution Status Climacteric acute [id number] acute Endometrial hyperplasia acut e [facility] Work Phone: Evaluation note* Diagnosis Generalized convulsive epilepsy (HCC) Generalized convulsive epilepsy without mention of intractable epilepsy [facility] [place] [facility]* Diagnosis 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 Hyponatremia Hyposmolality and/or hyponatremia MELA (obstructive sleep apnea) Obstructive sleep apnea (adult) (pediatric) Migraine without aura and without status migrainosus, not intractable Migraine without aura, without mention of intractable migraine without mention of status migrainosus Dizziness Dizziness and giddiness [facility] [place] [facility]* Diagnosis Generalized convulsive epilepsy (HCC) Generalized convulsive epilepsy without mention of intractable epilepsy documented in this encounter [facility] Discharge instructions No data available for this section [facility] Progress note No data available for this section [facility] Summary Purpose Family History Relationship Condition Age at Onset Recorded Date/T car mother Cardiac disease Unknown mother Hypertension Unknown Relationship Condition Age at Onset Recorded Date/T car mother Cardiac disease Unknown Hypertension Unknown Coronary artery disease Unknown brother Ruptured abdominal aortic aneurysm (AAA) Unknown sister Ruptured abdominal aortic aneurysm (AAA) Unknown Advance Directives Advance Directive Response Recorded Date/ Time Name of Medical Power of Planishing Hammer Operator Daughter January 15, 2022 8:11am Living Will Yes January 15, 2022 8:11am Power of Planishing Hammer Operator Yes January 15 8:11am Advance Directive Response Recorded Date/ Time Name of Medical Power of Planishing Hammer Operator Daughter January 15, 2022 7:11am Living Will Yes January 15, 2022 7:11am Power of Planishing Hammer Operator Yes January 15 7:11am Advance Directive Response Recorded Date/ Time Living Will Yes January 15, 2022 7:11am Power of Planishing Hammer Operator Yes January 15 7:11am Advance Directive Response Recorded Date/ Time Living Will Yes January 15, 2022 8:11am Power of Planishing Hammer Operator Yes January 15 8:11am Advance Directive Response Recorded Date/ Time Living Will Yes March 23 1:54pm Power of Planishing Hammer Operator Yes March 23, 2023 1:54pm Advance Directive Response Recorded Date/ Time Living Will Yes March 23 12:54pm Power of Planishing Hammer Operator Yes March 23, 2023 12:54pm Chief Complaint and Reason for Visit Chief Complaint LEFT HAND OPEN LT CARPAL TUNNEL RELEASE OPEN LT CARPAL TUNNEL RELEASE Chief Complaint LEFT HAND OPEN LT CARPAL TUNNEL RELEASE OPEN LT CARPAL TUNNEL RELEASE left wrist OSTEO Reason for Visit Orthopedic aftercare Chief Complaint OPEN LT CARPAL TUNNE L RELEASE OPEN LT CARPAL TUNNEL RELEASE left wrist OSTEO Annual (OPERATIONS PROFESSIONAL) SCREENING Reason for Visit Orthopedic aftercare Encounter for routine gynecological examination Chief Complaint Annual (OPERATIONS PROFESSIONAL) SCREENING Reason for Visit Encounter for routin e gynecological examination Chief Complaint LUMBAR SPINE- pain Chief Complaint LUMBAR SPINE- pain M96.1 Postlaminectomy syndrome, not elsewhere clas Chief Complaint LUMBAR SPINE- pain M96.1 Postlaminectomy syndrome, 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 ORDER AUB PMB f/u ENDOMETRIAL BIOPSY Reason for Visit Climacteric Postmenopausal bleeding Chief Complaint LUMBAR SPINE- pain M96.1 Postlaminectomy syndrome, 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 ORDER AUB PMB f/u ENDOMETRIAL BIOPSY ABN JAYDON (CHRISTIAN) EORDERS-2 ORDERING DRS Reason for Visit Diastolic dysfunctio n without heart failure Epilepsy Hypertension Migraine Supraventricular tachycardia Unsteadiness Vestibular disorder Chief Complaint E ORDER AUB PMB f/u ENDOMETRIAL BIOPSY ABN HOLTER (SHAFFER) EORDERS-2 ORDERING DRS SCREENING DYSPHAGIA OROPHAGYNGEAL DYSPHAGIA / RX HERE Reason for Visit Diastolic dysfunctio n without heart failure Epilepsy Hypertension Migraine Supraventricular tachycardia Unsteadiness Vestibular disorder Chief Complaint ABN HOLTER (SHAFFER) EORDERS-2 ORDERING DRS SCREENING DYSPHAGIA OROPHAGYNGEAL DYSPHAGIA / RX HERE EORDER Reason for Visit Diastolic dysfunctio n without heart failure Epilepsy Hypertension Migraine Supraventricular tachycardia Unsteadiness Vestibular disorder Chief Complaint OROPHAGYNGEAL DYSPHA ENRIQUE / RX HERE EORDER 6 month EMB post progesterone AUB Reason for Visit Climacteric [id number] Endometrial hyperplasia Chief Complaint 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, 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 ORDER AUB PMB f/u ENDOMETRIAL BIOPSY ABN HOLTER (SHAFFER) EORDERS-2 ORDERING DRS SCREENING DYSPHAGIA Reason for Visit Diastolic dysfunctio n without heart failure Epilepsy Hypertension Migraine Supraventricular tachycardia Unsteadiness Vestibular disorder Chief Complaint Admit Date pain- LEFT HIP/ LEFT KNEE May 15, 2024 3:07pm Annual (OPERATIONS PROFESSIONAL) May 24, 2024 1:08pm LUMBAR SPINE May 31, 2024 1:24pm room 3 May 31, 2024 1:55pm 7 M FU July 10, 2024 1 :22pm Reason for Visit Admit Date Climacteric May 24, 2024 1:08pm Encounter for gynecological examination (general) (routine) with abnormal May 24, 2024 1:08pm Endometrial hyperplasia May 24 024 1:08pm Encounter for routine gynecological exam ination May 24, 2024 1:08pm Lumbar scoliosis May 31, 2024 1:24pm Osteopenia determined by x-ray May 31, 2024 1:24pm Right hip pain May 31, 2024 1:24pm Spinal stenosis of lumbar re gion with neurogenic claudication May 31, 2024 1:24pm Spondylolisthesis, lumbar region Decembe r 2023 1:24pm Bilateral lower extremity edema July 10, 2024 1:22pm Diastolic dysfunction without heart fail ure July 10, 2024 1:22pm Epilepsy July 10, 2024 1 :22pm Fatigue July 10, 2024 1 :22pm Hypertension July 10, 2024 1 :22pm Migraine July 10, 2024 1 :22pm Supraventricular tachycardia June 1:22pm Vestibular disorder July 10, 2024 1 :22pm Reason for Referral Specialty Diagnoses / Procedures Referred By Contac t Referred To Contact MR IMAGING Diagnoses Dizziness Unsteadiness Procedures MRI CERVICAL SPINE WO IVCON MRI SPINAL CANAL CERVICAL W/O CONTRAST MATRL Vicenta Chirinos PA-C [address] [place] [address] Mr Imaging Referral ID Status Reason Start Date Expiration Date Visits Requested Visits Authorized [id number] Authorized Auto-Generat ed Referral 10/20/2022 11/19/2023 1 1 Specialty Diagnoses / Procedures Referred By Contac t Referred To Contact MR IMAGING Diagnoses Dizziness Unsteadiness Procedures MRI BRAIN WO/W IVCON MRI BRAIN BRAIN STEM W/O W/CONTRAST MATERIAL Vicenta Chirinos PA-C [address] [place] [address] Mr Imaging Referral ID Status Reason Start Date Expiration Date Visits Requested Visits Authorized [id number] Authorized Auto-Generat ed Referral 10/20/2022 11/19/2023 1 1 Specialty Diagnoses / Procedures Referred By Contac t Referred To Contact Neurosurgery Diagnoses Cervical stenosis of spinal canal Procedures CONSULT TO [facility]UROSURGERY OFFICE[facility]74 [facility]UTES Vicenta Chirinos PA-C [address] [place] [address] Referral ID Status Reason Start Date Expiration Date Visits Requested Visits Authorized [id number] Pending Review PCP Requested Referral 11/30/2022 11/30/2023 1 1 Specialty Diagnoses / Procedures Referred By Contac t Referred To Contact [facility] Diagnoses Dizziness Unsteadiness Procedures PT REHAB FOLLOW UP ORDER THERAPEUTIC EXERCISES RE, EA 15 MIN. Marcella Hercules, PT [facility] [place] [address] [place] [address] Referral ID Status Reason Start Date Expiration Date Visits Requested Visits Authorized [id number] Pending Review PCP Requested Referral Auto-Generate d Referral 12/01/2022 03/01/2023 1 1 Specialty Diagnoses / Procedures Referred By Contac t Referred To Contact CT IMAGING Diagnoses Dizziness and giddiness Lightheadedness History of carotid stenosis Procedures CTA NECK W IVCON CT ANGIOGRAPHY NECK W/CONTRAST/NONCONTRAST Ab Shaffer Jr., MD [address] [place] [id number] Ct Imaging [id number] Referral ID Status Reason Start Date Expiration Date Visits Requested Visits Authorized [id number] Authorized Auto-Generat ed Referral 02/21/2023 03/22/2024 1 1 Specialty Diagnoses / Procedures Referred By Contac t Referred To Contact CT IMAGING Diagnoses Dizziness and giddiness Lightheadedness History of carotid stenosis Procedures CTA HEAD WO/W IVCON CT ANGIOGRAPHY HEAD W/CONTRAST/NONCONTRAST Ab Shaffer Jr., MD [address] [place] [address] [address] [place] [address] Ct Imaging [id number] Referral ID Status Reason Start Date Expiration Date Visits Requested Visits Authorized [id number] Authorized Auto-Generat ed Referral 02/21/2023 03/22/2024 1 1 Specialty Diagnoses / Procedures Referred By Contac t Referred To Contact [facility] Diagnoses Dizziness and giddiness Lightheadedness Procedures ECHO ECHO TTHRC R-T 2D W/WOM-MODE COMPL SPEC&COLR D Ab Shaffer Jr., MD [address] [place] [id number] [facility] [place] [address] [place] [id number] Referral ID Status Reason Start Date Expiration Date Visits Requested Visits Authorized [id number] Authorized Auto-Generat ed Referral 02/21/2023 02/21/2024 1 1 Specialty Diagnoses / Procedures Referred By Contac t Referred To Contact MR IMAGING Diagnoses Dizziness Unsteadiness Procedures MRI BRAIN WO/W IVCON MRI BRAIN BRAIN STEM W/O W/CONTRAST MATERIAL Vicenta Chirinos PA-C [address] [place] [address] [place] [address] Referral ID Status Reason Start Date Expiration Date V isits Requested Visits Authorized [id number] Closed Auto-Generate d Referral 10/20/2022 11/19/2023 1 1 Specialty Diagnoses / Procedures Referred By Contac t Referred To Contact MR IMAGING Diagnoses Dizziness Unsteadiness Procedures MRI CERVICAL SPINE WO IVCON MRI SPINAL CANAL CERVICAL W/O CONTRAST MATRL Vicenta Chirinos PA-C [address] [place] [address] [place] [address] Referral ID Status Reason Start Date Expiration Date V isits Requested Visits Authorized [id number] Closed Auto-Generate d Referral 10/20/2022 11/19/2023 1 1 Referral ID Status Reason Start Date Expiration Date V isits Requested Visits Authorized [id number] Closed Auto-Generate d Referral 02/21/2023 03/22/2024 1 1 Referral ID Status Reason Start Date Expiration Date V isits Requested Visits Authorized [id number] Closed Auto-Generate d Referral 02/21/2023 03/22/2024 1 1 Additional Source Comments INFORMATION SOURCE (unrecogn ized section and content) DATE CREATED AUTHOR 06/11/2019 [facility] ([place] DATE CREATED AUTHOR AUTHOR'S ORGANIZ ATION 05/13/2020 [facility] DATE CREATED AUTHOR AUTHOR'S ORGANIZ ATION 06/02/2021 [facility] DATE CREATED AUTHOR AUTHOR'S ORGANIZ ATION 03/07/2024 [facility] DATE CREATED AUTHOR AUTHOR'S ORGANIZ ATION 08/10/[address] [facility] DATE CREATED AUTHOR AUTHOR'S ORGANIZ ATION 08/31/2024 [facility] Source Comments (unrecognize d section and content) In the event this informatio n is protected by the Federal Confidentiality of Alcohol and Drug Abuse Patient Records regulations: The Federal rules restrict any use of the information to criminally investigate or prosecute any alcohol or drug abuse patient.[facility] the event this information is protected by the Federal Confidentiality of Alcohol and Drug Abuse Patient Records regulations: The Federal rules restrict any use of the information to criminally investigate or prosecute any alcohol or drug abuse patient.[facility] the event this information is protected by the Federal Confidentiality of Alcohol and Drug Abuse Patient Records regulations: The Federal rules restrict any use of the information to criminally investigate or prosecute any alcohol or drug abuse patient.[facility] the event this information is protected by the Federal Confidentiality of Alcohol and Drug Abuse Patient Records regulations: The Federal rules restrict any use of the information to criminally investigate or prosecute any alcohol or drug abuse patient.[facility] the event this information is protected by the Federal Confidentiality of Alcohol and Drug Abuse Patient Records regulations: The Federal rules restrict any use of the information to criminally investigate or prosecute any alcohol or drug abuse patient.[facility] the event this information is protected by the Federal Confidentiality of Alcohol and Drug Abuse Patient Records regulations: The Federal rules restrict any use of the information to criminally investigate or prosecute any alcohol or drug abuse patient.[facility] the event this information is protected by the Federal Confidentiality of Alcohol and Drug Abuse Patient Records regulations: The Federal rules restrict any use of the information to criminally investigate or prosecute any alcohol or drug abuse patient.[facility] the event this information is protected by the Federal Confidentiality of Alcohol and Drug Abuse Patient Records regulations: The Federal rules restrict any use of the information to criminally investigate or prosecute any alcohol or drug abuse patient.[facility] the event this information is protected by the Federal Confidentiality of Alcohol and Drug Abuse Patient Records regulations: The Federal rules restrict any use of the information to criminally investigate or prosecute any alcohol or drug abuse patient.[facility] the event this information is protected by the Federal Confidentiality of Alcohol and Drug Abuse Patient Records regulations: The Federal rules restrict any use of the information to criminally investigate or prosecute any alcohol or drug abuse patient.[facility] the event this information is protected by the Federal Confidentiality of Alcohol and Drug Abuse Patient Records regulations: The Federal rules restrict any use of the information to criminally investigate or prosecute any alcohol or drug abuse patient.[facility] the event this information is protected by the Federal Confidentiality of Alcohol and Drug Abuse Patient Records regulations: The Federal rules restrict any use of the information to criminally investigate or prosecute any alcohol or drug abuse patient.[facility] the event this information is protected by the Federal Confidentiality of Alcohol and Drug Abuse Patient Records regulations: The Federal rules restrict any use of the information to criminally investigate or prosecute any alcohol or drug abuse patient.[facility] the event this information is protected by the Federal Confidentiality of Alcohol and Drug Abuse Patient Records regulations: The Federal rules restrict any use of the information to criminally investigate or prosecute any alcohol or drug abuse patient.[facility] the event this information is protected by the Federal Confidentiality of Alcohol and Drug Abuse Patient Records regulations: The Federal rules restrict any use of the information to criminally investigate or prosecute any alcohol or drug abuse patient.[facility] the event this information is protected by the Federal Confidentiality of Alcohol and Drug Abuse Patient Records regulations: The Federal rules restrict any use of the information to criminally investigate or prosecute any alcohol or drug abuse patient.[facility] the event this information is protected by the Federal Confidentiality of Alcohol and Drug Abuse Patient Records regulations: The Federal rules restrict any use of the information to criminally investigate or prosecute any alcohol or drug abuse patient.[facility] the event this information is protected by the Federal Confidentiality of Alcohol and Drug Abuse Patient Records regulations: The Federal rules restrict any use of the information to criminally investigate or prosecute any alcohol or drug abuse patient.[facility] the event this information is protected by the Federal Confidentiality of Alcohol and Drug Abuse Patient Records regulations: The Federal rules restrict any use of the information to criminally investigate or prosecute any alcohol or drug abuse patient.[facility] the event this information is protected by the Federal Confidentiality of Alcohol and Drug Abuse Patient Records regulations: The Federal rules restrict any use of the information to criminally investigate or prosecute any alcohol or drug abuse patient.[facility] the event this information is protected by the Federal Confidentiality of Alcohol and Drug Abuse Patient Records regulations: The Federal rules restrict any use of the information to criminally investigate or prosecute any alcohol or drug abuse patient.[facility] the event this information is protected by the Federal Confidentiality of Alcohol and Drug Abuse Patient Records regulations: The Federal rules restrict any use of the information to criminally investigate or prosecute any alcohol or drug abuse patient.[facility] the event this information is protected by the Federal Confidentiality of Alcohol and Drug Abuse Patient Records regulations: The Federal rules restrict any use of the information to criminally investigate or prosecute any alcohol or drug abuse patient.[facility] the event this information is protected by the Federal Confidentiality of Alcohol and Drug Abuse Patient Records regulations: The Federal rules restrict any use of the information to criminally investigate or prosecute any alcohol or drug abuse patient.[facility] the event this information is protected by the Federal Confidentiality of Alcohol and Drug Abuse Patient Records regulations: The Federal rules restrict any use of the information to criminally investigate or prosecute any alcohol or drug abuse patient.[facility] the event this information is protected by the Federal Confidentiality of Alcohol and Drug Abuse Patient Records regulations: The Federal rules restrict any use of the information to criminally investigate or prosecute any alcohol or drug abuse patient.[facility] the event this information is protected by the Federal Confidentiality of Alcohol and Drug Abuse Patient Records regulations: The Federal rules restrict any use of the information to criminally investigate or prosecute any alcohol or drug abuse patient.[facility] the event this information is protected by the Federal Confidentiality of Alcohol and Drug Abuse Patient Records regulations: The Federal rules restrict any use of the information to criminally investigate or prosecute any alcohol or drug abuse patient.[facility] the event this information is protected by the Federal Confidentiality of Alcohol and Drug Abuse Patient Records regulations: The Federal rules restrict any use of the information to criminally investigate or prosecute any alcohol or drug abuse patient.[facility] the event this information is protected by the Federal Confidentiality of Alcohol and Drug Abuse Patient Records regulations: The Federal rules restrict any use of the information to criminally investigate or prosecute any alcohol or drug abuse patient.[facility] the event this information is protected by the Federal Confidentiality of Alcohol and Drug Abuse Patient Records regulations: The Federal rules restrict any use of the information to criminally investigate or prosecute any alcohol or drug abuse patient.[facility] the event this information is protected by the Federal Confidentiality of Alcohol and Drug Abuse Patient Records regulations: The Federal rules restrict any use of the information to criminally investigate or prosecute any alcohol or drug abuse patient.[facility] Reason for Visit (unrecogniz ed section and content) Reason Comments Carbamazapine level Reason Comments Results Reason Comments Refill Request Reason Onset Date Comments Refill Request 08/02/2022 Reason Comments Follow Up Reason Onset Date Comments Refill Request 11/09/2022 Reason Comments Results Reason Comments PT Eval Specialty Diagnoses / Procedures Referred By Contac t Referred To Contact Physical Therapy / PHYSICAL THERAPY Diagnoses Dizziness [R42]; Unsteadiness [R26.81] Procedures NEW RS PT VESTIBULAR DIZZY Vicenta Chirinos, PA-C [address] [place] [address] Marcella Hercules, PT Referral ID Status Reason Start Date Expiration Date V isits Requested Visits Authorized [id number] Authorized 2022 06/12/2023 20 20 Reason Comments Physical Therapy Specialty Diagnoses / Procedures Referred By Contac t Referred To Contact Physical Therapy / PHYSICAL THERAPY Diagnoses Dizziness [R42]; Unsteadiness [R26.81] Procedures NEW RS PT VESTIBULAR DIZZY Vicenta Chirinos, PA-C [address] [place], [place] [id number] Marcella Hercules, PT Reason Comments Fax Results Reason Comments Orders Reason Comments Follow Up Reason Comments Patient Question Reason Comments Dizziness Balance/Incoordination Headaches Neck Pain Reason Comments PT Eval Specialty Diagnoses / Procedures Referred By Contac t Referred To Contact Physical Therapy / PHYSICAL THERAPY Diagnoses Dizziness [R42]; Unsteadiness [R26.81] Procedures NEW RS PT VESTIBULAR DIZZY Vicenta Chirinos, PA-C [address] [phone] Marcella Hercules, PT Reason Comments 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 - Other Specialty Diagnoses / Procedures Referred By Contac t Referred To Contact MR IMAGING Diagnoses Dizziness Unsteadiness Procedures MRI BRAIN WO/W IVCON MRI BRAIN BRAIN STEM W/O W/CONTRAST MATERIAL Vicenta Chirinos PA-C [address] [place] [address] Mr Imaging [id number] Referral ID Status Reason Start Date Expiration Date V isits Requested Visits Authorized [id number] Closed Auto-Generate d Referral 10/20/2022 11/19/2023 1 1 Specialty Diagnoses / Procedures Referred By Contac t Referred To Contact MR IMAGING Diagnoses Dizziness Unsteadiness Procedures MRI CERVICAL SPINE WO IVCON MRI SPINAL CANAL CERVICAL W/O CONTRAST MATRL Vicenta Chirinos PA-C [address] [phone] Mr Imaging [id number] Referral ID Status Reason Start Date Expiration Date V isits Requested Visits Authorized [id number] Closed Auto-Generate d Referral 10/20/2022 11/19/2023 [address] Specialty Diagnoses / Procedures Referred By Contac t Referred To Contact CT IMAGING Diagnoses Dizziness and giddiness Lightheadedness History of carotid stenosis Procedures CTA NECK W IVCON CT ANGIOGRAPHY NECK W/CONTRAST/NONCONTRAST Ab Shaffer Jr., MD [address] [id number] [address] Imaging [place] [address] Referral ID Status Reason Start Date Expiration Date V isits Requested Visits Authorized [id number] Closed Auto-Generate d Referral 02/21/2023 03/22/2024 1 1 Reason Comments PT Discharge Specialty Diagnoses / Procedures Referred By Contac t Referred To Contact Physical Therapy / PHYSICAL THERAPY Diagnoses Dizziness [R42]; Unsteadiness [R26.81] Procedures NEW RS PT VESTIBULAR DIZZY Vicenta Chirinos PA-C [address] [phone] Marcella Hercules, PT Reason Onset Date Comments Refill Request 07/25/2023 Reason Comments Follow Up Pt reported decrease d vertigo, tilt table cancelled. Reason Comments Follow Up 7 month follow up wi th vertigo Reason Onset Date Comments Refill Request 06/19/2024 Care Teams (unrecognized sec tion and content) Coke Burner Relationship Specialty Start Date End Date [facility]ys Mcclure [address] [facility] [address] [place] [address] PCP - General Family Practice 12/21/19 Coke Burner Relationship Specialty Start Date End Date Magalys Mcclure [address] [facility] [address] [place] [address] PCP - General Family Practice 12/21/19 Coke Burner Relationship Specialty Start Date End Date Magalys Mcclure [address] [facility] [address] [place] [address] PCP - General Family Medicine 12/21/19 Team Status: Active Member Role Status Dates Dr. Magalys Mcclure MD Family Provider Active Dr. Magalys Mcclure MD Primary Care Provider Active Team Status: Inactive Member Role Status Dates Dr. Magalys Mcclure MD Primary Care Provider, Referr ing Provider Active Dr. Shala Rebollar DO Attending Provider Activ e Team Status: Inactive Member Role Status Dates Dr. Magalys Mcclure MD Primary Care Provider Active Dr. Shala Rebollar DO Attending Provider Activ e Team Status: Inactive Member Role Status Dates Dr. Magalys Mcclure MD Primary Care Pr ovider, Attending Provider, Referring Provider Active Team Status: Inactive Member Role Status Dates Dr. Magalys Mcclure MD Primary Care Provider, Attend ing Provider Active Coke Burner Relationship Specialty Start Date End Date Magalys Mcclure [address] [facility] [address] [place] [address] PCP - General Family Medicine 12/21/19 Coke Burner Relationship Specialty Start Date End Date Magalys Mcclure [address] [facility] [address] [place] [address] PCP - General Family Medicine 12/21/19 Coke Burner Relationship Specialty Start Date End Date Magalys Mcclure [address] [place] [address] PCP - General Family Medicine 12/21/19 Coke Burner Relationship Specialty Start Date End Date Magalys Mcclure [address] [place] [address] PCP - General Family Medicine 12/21/19 Coke Burner Relationship Specialty Start Date End Date Magalys Mcclure [address] [place] [address] PCP - General Family Medicine 12/21/19 Coke Burner Relationship Specialty Start Date End Date Magalys Mcclure [address] [place] [address] PCP - General Family Medicine 12/21/19 Coke Burner Relationship Specialty Start Date End Date Magalys Mcclure [address] [place] [address] PCP - General Family Medicine 12/21/19 Coke Burner Relationship Specialty Start Date End Date Magalys Mcclure [address] [place] [address] PCP - General Family Medicine 12/21/19 Coke Burner Relationship Specialty Start Date End Date Magalys Mcclure [address] [place] [address] PCP - General Family Medicine 12/21/19 Team Status: Inactive Member Role Status Dates Dr. Magalys Mcclure MD Primary Care Provider Active Dr. Aldo Beavers MD Attending Provider, Referring Pr ovider Active Coke Burner Relationship Specialty Start Date End Date Magalys Mcclure MD [address] [place] [address] PCP - General Family Medicine 12/21/19 Coke Burner Relationship Specialty Start Date End Date Magalys Mcclure MD [address] [place] [address] PCP - General Family Medicine 12/21/19 Coke Burner Relationship Specialty Start Date End Date Magalys Mcclure MD [address] [place] [address] PCP - General Family Medicine 12/21/19 Coke Burner Relationship Specialty Start Date End Date Magalys Mcclure MD [address] [place] [address] PCP - General Family Medicine 12/21/19 Coke Burner Relationship Specialty Start Date End Date Magalys Mcclure MD [address] [place] [address] PCP - General Family Medicine 12/21/19 Coke Burner Relationship Specialty Start Date End Date Magalys Mcclure MD [address] [place] [address] PCP - General Family Medicine 12/21/19 Coke Burner Relationship Specialty Start Date End Date Magalys Mcclure MD [address] [place] [address] PCP - General Family Medicine 12/21/19 Coke Burner Relationship Specialty Start Date End Date Magalys Mcclure MD [address] [place] [address] PCP - General Family Medicine 12/21/19 Team Status: Inactive Member Role Status Dates Dr. Magalys Mcclure MD Primary Care Provider, Referr ing Provider Active Dr. Taryn Lee MD Attending Provider Active Team Status: Inactive Member Role Status Dates Dr. Magalys Mcclure MD Primary Care Provider Active Dr. Taryn Lee MD Attending Provider, Referr ing Provider Active Coke Burner Relationship Specialty Start Date End Date Magalys Mcclure MD [address] [place] [address] PCP - General Family Medicine 12/21/19 Coke Burner Relationship Specialty Start Date End Date Magalys Mcclure MD [address] [place] [address] PCP - General Family Medicine 12/21/19 Coke Burner Relationship Specialty Start Date End Date Magalys Mcclure MD [address] [place] [address] PCP - General Family Medicine 12/21/19 Team Status: Inactive Member Role Status Dates Dr. Magalys Mcclure MD Primary Care Provider, Referr ing Provider Active Dr. Samir Forrest MD Attending Provider Active Team Status: Inactive Member Role Status Dates Dr. Magalys Mcclure MD Primary Care Provider, Attend ing Provider Active Dr. Samir Forrest MD Referring Provider Active Team Status: Inactive Member Role Status Dates Dr. Magalys Mcclure MD Primary Care Provider Active Dr. Brittany Rogers DO Attending Provider Active Coke Burner Relationship Specialty Start Date End Date Magalys Mcclure MD [address] [place] [address] PCP - General Family Medicine 12/21/19 Team Status: Active Member Role Status Dates Dr. Magalys Mcclure MD Primary Care Pr ovider, Attending Provider, Referring Provider Active Team Status: Inactive Member Role Status Dates Dr. Magalys Mcclure MD Primary Care Provider Active Dr. Brittany Rogers DO Attending Provider, Referring Nick coronado Active Coke Burner Relationship Specialty Start Date End Date Magalys Mcclure MD [address] [place] [address] PCP - General Family Medicine 12/21/19 Coke Burner Relationship Specialty Start Date End Date Magalys Mcclure MD [address] [place] [address] PCP - General Family Medicine 12/21/19 Coke Burner Relationship Specialty Start Date End Date Magalys Mcclure MD [address] [place] [address] PCP - General Family Medicine 12/21/19 Coke Burner Relationship Specialty Start Date End Date Magalys Mcclure MD [address] [place] [address] PCP - General Family Medicine 12/21/19 Coke Burner Relationship Specialty Start Date End Date Magalys Mcclure MD [address] [place] [address] PCP - General Family Medicine 12/21/19 Team Status: Inactive Member Role Status Dates Dr. Magalys Mcclure MD Primary Care Provider Active Start: May 15, 2024 End: May 15, 2024 Dr. Magalys Mcclure MD Attending Provider Active Start: May 15, 2024 End: May 15, 2024 Dr. Magalys Mcclure MD Referring Provider Active Start: May 15, 2024 End: May 15, 2024 Team Status: Inactive Member Role Status Dates Dr. Magalys Mcclure MD Primary Care Provider Active Start: May 24, 2024 End: May 24, 2024 Dr. Magalys Mcclure MD Referring Provider Active Start: May 24, 2024 End: May 24, 2024 Dr. Taryn Lee MD Attending Provider Active Start: May 24, 2024 End: May 24, 2024 Team Status: Inactive Member Role Status Dates Dr. Magalys Mcclure MD Primary Care Provider Active Start: May 31, 2024 End: May 31, 2024 Dr. Magalys Mcclure MD Referring Provider Active Start: May 31, 2024 End: May 31, 2024 Dr. Ned Chiu MD Attending Provider Active Start: May 31, 2024 End: May 31, 2024 Team Status: Inactive Member Role Status Dates Dr. Magalys Mcclure MD Primary Care Provider Active Start: May 31, 2024 End: May 31, 2024 Dr. Olaf Mata MD Attending Provider Active S tart: May 31, 2024 End: May 31, 2024 Team Status: Inactive Member Role Status Dates Dr. Magalys Mcclure MD Primary Care Provider Active Start: July 10, 2024 End: July 10, 2024 Dr. Magalys Mcclure MD Referring Provider Active Start: July 10, 2024 End: July 10, 2024 Dr. Samir Forrest MD Attending Provider Active Start: July 10, 2024 End: July 10, 2024 Team Status: Inactive Member Role Status Dates Dr. Magalys Mcclure MD Primary Care Provider Active Start: August 16, 2024 End: August 16, 2024 Dr. Magalys Mcclure MD Attending Provider Active Start: August 16, 2024 End: August 16, 2024 Dr. Magalys Mcclure MD Referring Provider Active Start: August 16, 2024 End: August 16, 2024 Goals (unrecognized section and content) Goals may be documented in a n alternate sectionGoals may be documented in an alternate sectionGoals may be documented in an alternate sectionGoals may be documented in an alternate sectionGoals may be documented in an alternate sectionGoals may be documented in an alternate sectionGoals may be documented in an alternate sectionGoals may be documented in an alternate sectionGoals may be documented in an alternate sectionGoals may be documented in an alternate sectionGoals may be documented in an alternate sectionGoals may be documented in an alternate section No data available for this sectionGoals may be documented in an alternate section FOR RECORDS PERTAINING TO PATIENTS WHO ARE [...] BE BASED ON THE PRIMARY CLINICAL RECORDS. [facility] [employer] [facility]. provides no warranty or guarantee of the accuracy or completeness of information in this document.
== END | disposition home or self-care (01) ==
LOC: MTLAB 14:15
PROVIDERS: PCP Family Medicine; Referring Provider Family Medicine; Visit Provider Family Medicine
DX: E78.5 Hyperlipidemia, unspecified (principal); E55.9 Vitamin D deficiency, unspecified
CPT/HCPCS: 36415; 80053; 80061; 82306; 85025

== ENCOUNTER → 2025-01-21 | Outpatient (CLI) | payer MEDICARE, SELFPAY ==
--- NOTE | 2025-01-21 08:39 | AAAS_ITS ---
Reason For Study Reason For Study: Family history of AAA Aorta Measurements Aorta Doppler Measurements Proximal aorta measures2.37 x 2.27cm. in cross-sectional Peak systolic flow velocities within the proximal aorta axis. measure 81.4 cm/sec. Proximal aorta measures2.28cm. in longitudinal axis. Peak systolic flow velocities within the mid aorta measure Mid aorta measures1.45 x 1.40cm. in cross-sectional axis. 77.7 cm/sec. Mid aorta measures1.45cm. in longitudinal axis. Peak systolic flow velocities within the distal aorta Distal aorta measures1.20 x 1.18cm. in cross-sectional axis.measure 74.1 cm/sec. Distal aorta measures1.20cm. in longitudinal axis. Left Iliac Artery Left iliac artery measures 0.91 x 0.91 cm. in the cross-sectional axis. Left iliac artery measures 0.91 cm. in the longitudinal axis. Peak systolic velocity in the left iliac artery measures 94.1 cm/sec. Right Iliac Artery Right iliac artery measures 1.01 x 1.03 cm. in the cross-sectional axis. Right iliac artery measures 0.91 cm. in the longitudinal axis. Peak systolic velocity in the right iliac artery measures 88.6 cm/sec. VL/AAA Screening Interpretation Summary Aorta patent, normal caliber. Bilateral iliac arteries patent, normal caliber. Ordering Physician: Samir Forrest Referring Physician: Sukhi Mcclure Performed By: Vivian Monaco RVT
== END | disposition home or self-care (01) ==
PROVIDERS: PCP Family Medicine; Referring Provider Internal Medicine Cardiovascular Disease; Visit Provider Internal Medicine Cardiovascular Disease
DX: I70.90 Unspecified atherosclerosis (principal); E78.5 Hyperlipidemia, unspecified
CPT/HCPCS: 76706

== ENCOUNTER → 2025-01-31 | Outpatient (CLI) | payer MEDICARE, SELFPAY ==
--- NOTE | 2025-01-31 07:22 | ECHOD_ITS ---
Reason For Study Reason For Study: Other ill defined heart disease Procedure This was a 2D Doppler, Color Flow transthoracic echocardiogram. Exam performed in department. Left Ventricle Normal LV size. Mild concentric left ventricular hypertrophy. Left ventricular systolic function is normal. The left ventricular ejection fraction is 60 %. Stage 1 diastolic dysfunction. No regional wall motion abnormalities noted. Right Ventricle Normal RV size. Normal systolic function. Atria Normal left atrium. Normal right atrium. Mitral Valve Normal mitral valve. Tricuspid Valve Normal tricuspid valve. Mild (1+) tricuspid valve insufficiency. Pulmonary artery systolic pressure is 25 mmHg. Aortic Valve Trisinus/trileaflet aortic valve. Pulmonic Valve Normal pulmonic valve. Great Vessels Normal aortic root. The pulmonary artery is normal size. Inferior vena cava collapse with respiration. Pericardium/Pleural No pericardial effusion. MMode/2D Measurements & Calculations LVIDd: 3.6 cm IVSd: 1.2 cm Ao root diam: 3.6 cm LVIDs: 2.3 cm LVPWd: 1.2 cm RVDd: 3.0 cm FS: 38.0 % LAV(MOD-bp): 46.1 ml LVAd ap4: 20.0 cm2 LVAd ap2: 20.0 cm2 LAV(MOD-bp) Indexed: 28.6 ml/m2 LVLd ap4: 7.0 cm LVLd ap2: 7.3 cm LAV(MOD-sp2): 42.9 ml EDV(MOD-sp4): 48.8 ml EDV(MOD-sp2): 44.8 ml LAV(MOD-sp4): 48.7 ml EDV(sp4-el): 48.5 ml EDV(sp2-el): 46.4 ml LVAs ap4: 11.0 cm2 LVAs ap2: 8.4 cm2 LVLs ap4: 5.8 cm LVLs ap2: 6.1 cm ESV(MOD-sp4): 18.8 ml ESV(MOD-sp2): 10.6 ml ESV(sp4-el): 17.9 ml ESV(sp2-el): 9.8 ml EF(MOD-sp4): 61.6 % EF(MOD-sp2): 76.3 % EF(sp4-el): 63.1 % SV(MOD-sp4): 30.1 ml SV(MOD-sp2): 34.2 ml SV(sp4-el): 30.6 ml SI(MOD-sp4): 18.6 ml/m2 SI(MOD-sp2): 21.2 ml/m2 LA A4 area: 17.3 cm2 LA dimension(2D): 3.2 cm RA A4 area: 11.2 cm2 TAPSE: 2.0 cm Time Measurements MV dec time: 0.20 sec Doppler Measurements & Calculations MV E max lefty: 66.8 cm/sec Lat Peak E' Lefty: 5.9 cm/sec Med Peak E' Lefty: 5.4 cm/sec MV A max lefty: 95.8 cm/sec E/E' lat: 11.4 E/E' med: 12.3 MV E/A: 0.70 MV V2 max: 115.2 cm/sec MV P1/2t max lefty: 88.0 cm/sec Ao V2 max: 110.3 cm/sec MV max P.3 mmHg MV P1/2t: 66.0 msec Ao max P.9 mmHg MV V2 mean: 53.9 cm/sec Ao V2 mean: 87.3 cm/sec MV mean P.4 mmHg MV dec slope: 390.6 cm/sec2 Ao mean P.3 mmHg MV V2 VTI: 25.8 cm MVA(P1/2t): 3.3 cm2 Ao V2 VTI: 28.1 cm AV (velocity ratio): 0.86 LV V1 max: 92.1 cm/sec PA V2 max: 94.0 cm/sec LV V1 max P.4 mmHg PA V2 mean: 70.9 cm/sec PI dec slope: 209.5 cm/sec2 LV V1 mean P.2 mmHg LV V1 mean: 70.9 cm/sec LV V1 VTI: 24.3 cm TR max lefty: 234.4 cm/sec TR max P.0 mmHg ECHO/Echo Complete Interpretation Summary Normal LV size. Left ventricular systolic function is normal. The left ventricular ejection fraction is 60 %. Stage 1 diastolic dysfunction. Mild concentric left ventricular hypertrophy. Structurally normal valves. Ordering Physician: Samir Forrest Referring Physician: Sukhi Mcclure Performed By: Fallon Barnett RDCS, RVT
--- OUTSIDE RECORDS SUMMARY | 2025-01-31 07:23 | XMS RPT_ITS | CCD ---
Author Organization [facility] CliniSyut Care Team Providers Care Fishing Manager Name Role Phone Taryn Lee MD Unavailable [...] Provider Dr. Magalys Mcclure Referring Provider Dr. Magalys Mcclure Primary Care Provider Dr. Magalys Mcclure Referring Provider Dr. Taryn Lee Attending Provider Magalys Mcclure MD Primary Care Provider KAMI RICHMOND, MAGALYS Primary Care Physician Blake PT, Rebeca Unavailable Unavailable KAMI RICHMOND, MAGALYS Primary Care Unavailable NED CHIU MD Attending Unavailable Dr. Magalys Mcclure MD Primary Care Provider Dr. Magalys Mcclure MD Attending Provider [phone] Dr. Magalys Mcclure MD Referring Provider [phone] Dr. Taryn Lee MD Attending Provider Dr. Ned Chiu MD Attending Provider Dr. Olaf Mata MD Attending Provider Dr. Samir Forrest MD Attending Provider Dr. Magalys Mcclure MD Primary Care Provider Dr. Magalys Mcclure MD Attending Provider [phone] Dr. Magalys Mcclure MD Referring Provider AB SHAFFER JR Attending Unavailable MAGALYS MCCLURE Primary Care Unavailable AB SHAFFER JR Referring Unavailable MAGALYS MCCLURE Primary Care Unavailable Dr. Magalys Mcclure MD Primary Care Provider Dr. Magalys Mcclure MD Attending Provider [phone] Kami RICHMOND, Dr. Magalys Ceja Referring Provider Lon RICHMOND, Dr. Dawson Attending Provider Lon RICHMOND, Dr. Dawson Referring Provider Elli RICHMOND, Dr. Ramon Attending Provider Bulmaro PACKAGING MACHINE OPERATOR-C, Amanda Attending Provider Schinner, Magalys E Primary Care Unavailable Lon, Samir Referring Unavailable Lon, Samir Attending Unavailable Schinner, Magalys E Primary Care Unavailable Schinner, Magalys E Referring Unavailable Lon, Samir Attending Unavailable Schinner, Magalys E Primary Care Unavailable Tristen Calloway Attending Unavailable Schinner, Magalys E Primary Care Unavailable Amanda Chamberlain Attending Unavailable Schinner, Magalys E Primary Care Unavailable Schinner, Magalys E Referring Unavailable Taryn Lee Attending Unavailable Schinner, Magalys E Primary Care Unavailable Schinner, Magalys E Referring Unavailable Ned Chiu Attending Unavailable Schinner, Magalys E Primary Care Unavailable Olaf Mata Attending Unavailable Schinner, Magalys E Primary Care Unavailable Schinner, Magalys E Referring Unavailable Lon, Samir Attending Unavailable Schinner, Magalys E Primary Care Unavailable Schinner, Magalys E Referring Unavailable Taryn Lee Attending Unavailable Schinner, Magalys E Primary Care Unavailable SchinnerMagalys E Referring Unavailable SchinnerMagalys E Attending Unavailable Schinner, Magalys E Primary Care Unavailable Lon, Samir Referring Unavailable Lon, Samir Attending Unavailable Schinner, Magalys E Primary Care Unavailable Taryn Lee Referring Unavailable Taryn Lee Attending Unavailable Schinner, Magalys E Primary Care Unavailable SchinnerMagalys E Attending Unavailable Schinner, Magalys E Primary Care Unavailable SchinnerMagalys E Attending Unavailable Schinner, Magalys E Primary Care Unavailable Schinner, Magalys E Referring Unavailable SchinnerMagalys E Attending Unavailable Schinner, Magalys E Primary Care Unavailable Schinner, Magalys E Attending Unavailable Schinner, Magalys E Primary Care Unavailable Aldo Beavers Referring Unavailable Aldo Beavers Attending Unavailable Schinner, Magalys E Primary Care Unavailable Schinner, Magalys E Referring Unavailable SchinnerMagalys E Attending Unavailable Allergies Allergy Classification Reported Allergen(s) Allergy Type Date of Onset Reaction(s) Facility (2 sources) codeine Drug Allergy 03-18-20 [facility] (2 sources) ofloxacin Drug Allergy 03-18-20 [facility] (2 sources) sulfamethoxazole / trimethoprim Drug Allergy 03-18-20 [facility] (2 sources) SUMAtriptan Drug Allergy 03-18-20 [facility] (2 sources) PAIN MEDICATION drug allergy 03-18-20 [facility] (20 sources) Codeine; Translations: [codeine] Drug Allergy 10-18-19 Vomiting [facility] (20 sources) Morphine; Translations: [morphine] Drug Allergy 10-18-19 Vomiting [facility] (20 sources) Ofloxacin; Translations: [ofloxacin] Drug Allergy 04-18-20 Other [facility] Work Phone: (20 sources) Pethidine analog; Translations: [OPIOIDS-MEPERIDINE AND RELATED] Propensity to adverse reactions 10-18-19 [facility] (20 sources) Sulfonamides (Antibiotic); Translations: [SULFA (SULFONAMIDE ANTIBIOTICS)] Propensity to adverse reactions 10-18-19 [facility] (20 sources) SUMAtriptan; Translations: [SUMATRIPTAN SUCCINATE] Drug Allergy 04-18-20 Other [facility] Work Phone: (20 sources) [id number] Antimigraine Agents; Translations: [[id number] ANTIMIGRAINE AGENTS] Propensity to adverse reactions 10-18-19 [facility] (20 sources) Meperidine; Translations: [meperidine HCl] Drug Allergy 01-23-20 Nausea [facility] (20 sources) Sulfamethoxazole Drug Allergy 01-23-20 Nausea [facility] (20 sources) SUMAtriptan; Translations: [sumatriptan] Drug Allergy 01-23-20 Other [facility] (20 sources) Trimethoprim Drug Allergy 01-23-20 Nausea [facility] (4 sources) [id number] Antimigraine Agents Propensity to adverse reactions 10-18-19 03 [facility] (1 source) HYDROmorphone; Translations: [hydromorphone] Drug Allergy [facility] (1 source) Meperidine; Translations: [meperidine] Drug Allergy [facility] (1 source) Sulfamethoxazole / Trimethoprim; Translations: [sulfamethoxazole-tr imethoprim] Drug Allergy [facility] (1 source) Codeine Drug Allergy 01-03-20 [facility] (1 source) Morphine Drug Allergy 01-03-20 [facility] (1 source) Ofloxacin Drug Allergy 01-03-20 [facility] (1 source) Sulfamethoxazole Drug Allergy 01-03-20 [facility] (1 source) SUMAtriptan Drug Allergy 01-03-20 [facility] (1 source) SUMAtriptan Drug Allergy 01-03-20 [facility] (1 source) Trimethoprim Drug Allergy 01-03-20 [facility] Medications Current Medications Medication Drug Class(es) Dates Sig (Normalized) Sig (Original) acetaminophen 325 mg oral tablet (11 sources) Start: 04-08-2023 take 2 tablets by mouth once daily Acetaminophen (Tylenol) 325 mg tablet Active 650 mg PO DAILY April 08, 2023 12:00am aspirin 81 mg delayed release oral tablet (1 source) Platelet Aggregation Inhibitor, Nonsteroidal Anti-inflammatory Drug Start: 01-02-2025 take 1 tablet by mouth once daily Aspirin (Adult Aspirin Regimen) 81 mg tablet,delayed release (DR/EC) Active 81 mg PO daily 30 0 January 02, 2025 12:00am augmented betamethasone 0.0005 mg/mg topical gel (20 sources) Corticosteroid Start: 10-10-2009 BETAMETHASONE, AUGMENTED 0.05 % TOPICAL GEL apply on erosions on mouth 2-3 times a day as needed 30 gr 4 10/10/2009 Active Comment on above: apply on erosions on mouth 2-3 times a day as needed calcium carbonate 600 mg / cholecalciferol 0.01 mg oral tablet (20 sources) Vitamin D Start: 01-02-2025 Calcium Carbonate-Vit D3-Min 600 mg-10 mcg (400 unit) tablet Active 1 {tbl} PO daily January 02, 2025 12:00am Start: 05-08-2019 End: 04-08-2023 Calcium Carbonate-Vitamin D3 (Calcium 600 + D(3)) 600 mg calcium- 200 unit capsule Discontinued 1 NMA PO DAILY 0 May 08, 2019 1:00am April 08, 2023 9:01am Calcium Carbonate / vitamin D3 (20 sources) CALCIUM CARBONAT E/VITAMIN D3 (VITAMIN D-3 ORAL) Take by mouth. Active CALCIUM CARBONAT E/VITAMIN D3 (VITAMIN D-3 ORAL) Take by mouth. 0 Active Comment on above: Take by mouth. carBAMazepine 200 mg oral tablet (20 sources) Mood Stabilizer Start: End: take 1 capsule by mouth every twelve hours at bedtime Carbamazepine 300 mg Capsule, Er Multiphase 12 Hr Discontinued 300 mg PO AT BEDTIME January 15, 2022 12:00am January 02, 2025 12:58pm Start: 05-25-2019 End: 12-24-2024 take 0.5 tablet by mouth twice daily in the morning, then take 1.5 tablets by mouth at bedtime Carbamazepine (Tegretol) 200 mg tablet Active 0 PO TWICE A DAY January 02, 2025 12:00am orally twice a day; 1/2 tab in AM and 1.5 tab HS Start: 06-16-2017 End: 01-02-2025 take 1 tablet by mouth once daily Carbamazepine (Tegretol) 200 mg tablet Discontinued 100 mg PO DAILY June 16, 2017 1:00am January 02, 2025 12:57pm Start: 03-18-2017 TEGRETOL 200 M G TABS take one half tablet by mouth in the morning and one and a half tablets by mouth at bedtime CARBAMAZEPINE [id number] Taryn Lee MD Comment on above: Take [...] April 08, 2023 9:04am Compress.Stocking,Knee,Reg,M ed misc (4 sources) Start: 07-10-2024 Compress.Stocking,Knee,Reg,M ed misc Active 0 .Route 12 July 10, 2024 1:00am 20-30 mmHg Start: 07-10-2024 Compress.Stock ing,Knee,Reg,Med misc Active 0 .Route 12 July 10, 2024 1:00am 20-30 mmHg iv contrast (will be provided with radiology [...] in the CT contrast administration guidelines link. meloxicam 15 mg oral tablet (20 sources) Nonsteroidal Anti-inflammatory Drug Start: 02-12-20 17 End: 11-24-19 24 take 1 tablet by mouth once daily for pain meloxicam (MOBIC) 15 mg tablet Take 1 tablet by mouth once daily. for pain. Take with food. 90 tablet 3 02/11/2017 Active Comment on above: Take 1 tablet by carlos once daily. for pain. Take with food. multivitamin capsule (16 sources) Start: 06-16-19 18 take 1 capsule by mouth once daily multivitamin capsule Active 1 CAP PO daily June 16, 2017 12:00am Start: 06-16-2017 take 1 capsule by mo [facility] once daily multivitamin capsule Active 1 CAP PO daily June 16, 2017 1:00am Multivitamin capsule (4 sources) Start: 06-16-2017 Multivitamin capsule Active 1 NMA [...] NaCl (PF) 0.9% 10 mL injection (DEFINITY) progesterone 200 mg oral capsule (20 sources) Progesterone Start: 03-22-2023 End: 11-24-2023 progesterone micronized (PROMETRIUM) 200 mg capsule Take by mouth. 03/22/2023 Active Comment on above: Take by mouth. rosuvastatin calcium 10 mg oral tablet (20 sources) HMG-CoA Reductase Inhibitor Start: 07-12-2016 take 1 tablet by mouth once daily rosuvastatin (CRESTOR) 10 mg tablet Indications: Hyperlipidemia, unspecified hyperlipidemia type Take 1 tablet by mouth once daily. 90 tablet 3 07/12/2016 Active Comment on above: Take 1 tablet by carlos once daily. 125 ml sodium chloride 9 mg/ml prefilled syringe (17 sources) Start: 02-21-2023 End: 05-22-2024 sodium chloride 0.9 % (flush) 10 mL (BD POSIFLUSH) verapamil hydrochloride 240 mg extended release oral tablet (20 sources) Calcium Channel Cl Start: 11-11-2022 End: 01-25-2025 take 1 tablet by mouth once daily verapamil SR (CALAN SR) 240 mg CR tablet Indications: Migraine without aura and without status migrainosus, not intractable TAKE 1 TABLET BY MOUTH EVERY DAY 90 tablet 1 01/25/2025 Active Start: 05-25-2019 End: 11-09-2022 take 1 tablet by mouth once daily verapamil SR (CALAN SR, ISOPTIN SR) 240 mg CR tablet Take 1 tablet by mouth once daily. 90 tablet 0 08/02/2022 11/09/2022 Discontinued Start: 06-16-2017 take 1 capsule by mo [facility] once daily Verapamil (Verelan) 240 mg capsule,ext rel. pellets 24 hr Active 240 mg PO daily June 16, 2017 1:00am Start: 03-18-2017 VERAPAMIL HCL ER 240 MG CR-TABS VERAPAMIL HCL [phone] Taryn Lee MD Comment on above: Take 1 tablet by carlos once daily. take 1 tablet by carlos every day Completed/Discontinued Medications Medication Drug Class(es) Dates Sig (Normalized) Sig (Original) acetaminophen 500 mg / caffeine 65 mg oral tablet (20 sources) Central Nervous System Stimulant, Methylxanthine Start: [...] / HYDROcodone bitartrate 5 mg oral tablet (11 sources) Opioid Agonist Start: 04-08-2023 End: 04-03-2024 Hydrocodone-Acetaminophen 5- 325 mg tablet Discontinued 1 {tbl} PO TWICE A DAY as needed 0 April 08, 2023 12:00am April 03, 2024 3:02pm Start: 04-08-2023 take 1 tablet by carlos twice daily Hydrocodone-Acetaminophen Active 1 TABLE T [...] CALCIUM + D3 600-800 MG-UNIT TABS CALCIUM CARB-CHOLECALCIFER OL [id number] Taryn Lee MD calcium carbonate 1500 mg oral tablet (11 sources) Start: 04-08-2023 End: 01-02-2025 take 1 tablet by mouth once daily Calcium Carbonate 600 mg calcium (1,500 mg) tablet Discontinued 600 mg PO DAILY April 08, 2023 12:00am January 02, 2025 12:58pm clobetasol propionate 0.0005 mg/mg topical gel (20 [...] ea. cloNIDine hydrochloride 0.2 mg oral tablet (9 sources) Central alpha-2 Adrenergic Agonist Start: 4 End: take 1 tablet by mouth once [...] mg tablet Discontinued 0 .ROUTE .COMPLEX 90 4 December 20, 2022 8:19am March 17, 2023 2:07pm TAKE 1 TABLET BY MOUTH EVERY DAY Comment on above: Take 1 tablet by carlos once daily. fluticasone propionate 0.05 mg/actuat metered dose nasal spray (12 sources) Corticosteroid Start: 04-08-20 End: 11-24-19 Fluticasone [...] Date: 05/25/19 Status: Ordered Repeat number: 1 gabapentin 100 mg oral capsule (4 sources) Anti-epileptic Agent Start: 04-03-2024 End: 01-02-2025 take 1 tablet by mouth three times daily Gabapentin 100 mg tablet Discontinued 100 mg PO THREE TIMES A DAY April 03, 2024 12:00am January 02, 2025 12:58pm medroxyPROGESTERone acetate 10 mg oral tablet (20 sources) Progestin Start: 02-13-2016 End: 08-01-2023 take 1 tablet by mouth once daily as needed Medroxyprogesterone (Provera) 10 mg tablet Discontinued 10 mg PO daily as needed for climatera 14 April 19, 2022 12:01pm May 12, 2022 4:55pm Comment on above: Take once daily for 14 days every 2-3 months metoprolol tartrate 25 mg oral tablet (20 sources) beta-Adrenergic Cl Start: 04-14-2023 End: 07-10-2024 [...] 7 MULTIVITAMIN WOMEN 50+ TABS MULTIPLE VITAMINS-MINERALS [id number] Taryn Lee MD omeprazole 20 mg delayed release oral capsule (20 sources) Proton Pump Inhibitor Start: 9 End: 3 take 2 capsules by mouth once daily Omeprazole 20 mg capsule,delayed release(DR/EC) Discontinued 40 mg PO DAILY May 08, 2019 1:00am April 08, 2023 9:04am Start: 05-08-2019 End: 04-08-2023 take 40 mg by mouth once daily Omeprazole Discontinued 40 MG PO DAILY May 08, 2019 1:00am April 08, 2023 9:04am Start: 12-08-2018 omeprazole ([place] ILOSEC) 20 mg capsule 12/08/2018 Active Start: 07-12-2016 End: 08-01-2023 take 1 capsule by mouth once daily Omeprazole 40 mg capsule Indications: Gastroesophageal reflux disease without esophagitis Take 1 capsule by mouth once daily. 90 capsule 3 07/12/2016 08/01/2023 Discontinued Comment on above: Take 1 capsule by mo [facility] once daily. oxyCODONE hydrochloride 5 mg oral tablet (20 sources) Opioid Agonist Start: End: take 2.5-5 mg by mouth every four hours as needed for pain Oxycodone 5 mg tablet Discontinued 2.5 - 5 mg PO Q4H as needed for pain 10 3 0 January 22, 2022 February 03, 2022 1:19pm Other acute postprocedural pain Other acute postprocedural pain sucralfate 1000 mg oral tablet (20 sources) Aluminum Complex Start: End: take 1 tablet by mouth four times daily Sucralfate 1 GM tablet Discontinued 1 g PO 4 TIMES DAILY 120 0 July 08, 2017 1:00am May 08, 2019 4:16pm tacrolimus 0.001 mg/mg topical ointment (20 sources) Calcineurin Inhibitor Immunosuppressant Start: End: Tacrolimus (Protopic) 0.1 % ointment Discontinued 1 NMA TOPICAL TWICE A DAY as needed for oral April 08, 2023 8:58am April 03, 2024 3:03pm Comment on above: Apply 1 application to affected area twice daily as needed. triamcinolone acetonide 0.001 mg/mg oral paste (20 sources) Corticosteroid Start: End: Triamcinolone Acetonide Discontinued 1 APPLIC DENTAL AT BEDTIME June 16, 2017 1:00am September 25, 2020 1:04pm Start: 06-16-2017 End: 09-25-2020 Triamcinolone Acetonide 0.1 % paste Discontinued 1 NMA DENTAL AT BEDTIME June 16, 2017 1:00am September 25, 2020 1:04pm Comment on above: by DENTAL route twic e daily. 24 hr venlafaxine 37.5 mg extended release oral capsule (10 sources) Serotonin and Norepinephrine Reuptake Inhibitor Start: 09-30-19 End: 11-24-19 take 1 capsule by mouth once daily Venlafaxine (Effexor Xr) 37.5 mg capsule,extended release 24hr Discontinued 37.5 mg PO DAILY 30 September 30, 2023 12:00am November 24, 2023 1:03pm vitamin b6 100 mg oral tablet (20 sources) Start: 07-28-19 16 End: 08-01-19 take 1 tablet by mouth once daily pyridoxine (VITAMIN B-6) 100 mg tablet Take 1 tablet by mouth once daily. 0 07/28/2015 08/01/2023 Discontinued Comment on above: Take 1 tablet by carlos once daily. Problems Active Problems Problem Classification Problem Date Documented Date Episodic/Chronic Cardiac dysrhythmias (19 sources) Supraventricular tachycardia; Translations: [Supraventricular tachycardia] 04-14-2023 Chronic Comment on above: 6 beat run noted on Holter monitoring. Disorders of lipid metabolism (20 sources) Hyperlipidemia; Translations: [Hyperlipidemia, unspecified] Onset: 02-02-2005 Resolved: 08-26-2015 08-26-2015 Chronic Epilepsy; convulsions (20 sources) Generalized convulsive epilepsy; Translations: [Generalized idiopathic epilepsy and epileptic syndromes, not intractable, without status epilepticus] Onset: 02-02-2005 Chronic Esophageal disorders (20 sources) Gastroesophageal reflux disease; Translations: [Gastro-esophageal reflux disease without esophagitis] Onset: 02-02-2005 02-02-2005 Chronic Essential hypertension (20 sources) Hypertensive disorder; Translations: [Essential (primary) hypertension] Onset: 08-28-2024 04-14-2023 Chronic Headache; including migraine (20 sources) Migraine without aura; Translations: [Migraine without aura, not intractable, without status migrainosus] Onset: 02-02-2005 07-12-2016 Chronic Comment on above: takes verapimil Joint disorders and dislocations; trauma-related (20 sources) Dislocation of hip joint; Translations: [Unspecified dislocation of left hip, initial encounter] 07-08-2017 Episodic Menopausal disorders (20 sources) Atrophic vaginitis; Translations: [Postmenopausal atrophic vaginitis] Onset: 05-12-2009 Resolved: 03-14-2012 05-12-2009 Chronic Comment on above: 4 mm lining, patient was noncompliant with progesterone therapy- possible cause. emb done on HRT taking cyclic provera, had bleeding episode and recommend US and EMB relizen Occlusion or stenosis of precerebral arteries (11 sources) Carotid artery stenosis; Translations: [Occlusion and stenosis of unspecified carotid artery] 04-08-2023 Chronic Other acquired deformities (5 sources) Scoliosis of lumbar spine; Translations: [Scoliosis, unspecified] 06-01-2024 Chronic Other acquired deformities (5 sources) Lumbar spondylolisthesis; Translations: [Spondylolisthesis, lumbar region] 06-01-2024 Episodic Other aftercare (3 sources) Encounter for other orthopedic aftercare; Translations: [Unspecified orthopedic aftercare] Episodic Other aftercare (1 source) Patient encounter status; Translations: [Encounter for therapeutic drug level monitoring] Episodic Other aftercare (1 source) Taking high risk medication; Translations: [Other terminal superintendent (current) drug therapy] 02-21-2023 Episodic Other and ill-defined heart disease (13 sources) Diastolic dysfunction; Translations: [Other ill-defined heart diseases] 04-14-2023 Chronic Other and ill-defined heart disease (8 sources) Other ill-defined heart diseases; Translations: [Heart disease, unspecified] Onset: 07-10-2024 04-14-2023 Chronic Other bone disease and musculoskeletal deformities (5 sources) Osteopenia; Translations: [Other specified disorders of bone density and structure, unspecified site] 06-01-2024 Episodic Other circulatory disease (2 sources) H/O: cardiovascular disease; Translations: [Personal history of other diseases of the circulatory system] 02-21-2023 Episodic Other female genital disorders (6 sources) Endometrial hyperplasia; Translations: [Endometrial hyperplasia, unspecified] 09-30-2023 Chronic Comment on above: progesterone ordered . emb done. s/p progesterone, repeat emb 04/05 Other female genital disorders (1 source) Endometrial hyperplasia, unspecified; Translations: [Endometrial hyperplasia, unspecified] 09-30-2023 Chronic Other nervous system disorders (14 sources) Carpal tunnel syndrome; Translations: [Carpal tunnel syndrome, left upper limb] 08-03-2021 Chronic Other nervous system disorders (2 sources) Neuropathy; Translations: [Polyneuropathy, unspecified] Chronic Other nervous system disorders (1 source) Bilateral carpal tunnel syndrome; Translations: [Carpal tunnel syndrome, bilateral upper limbs] Chronic Other nervous system disorders (6 sources) Carpal tunnel syndrome of left wrist; Translations: [Carpal tunnel syndrome, left upper limb] 04-08-2023 Chronic Other nervous system disorders (20 sources) Acute postoperative pain; Translations: [Other acute postprocedural pain] 01-22-2022 Episodic Other nervous system disorders (6 sources) Unsteadiness on feet; Translations: [Abnormality of gait] 04-14-2023 Episodic Other non-traumatic joint disorders (1 source) Pain in right hip joint; Translations: [Pain in right hip] Episodic Other non-traumatic joint disorders (5 sources) Hip pain; Translations: [Pain in right hip] 05-31-2024 Episodic Peripheral and visceral atherosclerosis (4 sources) Arteriosclerotic vascular disease; Translations: [Unspecified atherosclerosis] Onset: 01-25-2025 01-02-2025 Chronic Residual codes; unclassified (2 sources) Menopause present; Translations: [Menopausal and female climacteric states] Onset: 03-18-2017 03-18-2017 Chronic Residual codes; unclassified (6 sources) Obstructive sleep apnea syndrome; Translations: [Obstructive sleep apnea (adult) (pediatric)] Chronic Residual codes; unclassified (1 source) Obstructive sleep apnea (adult) (pediatric); Translations: [MELA (obstructive sleep apnea)] Onset: 03-02-2024 Chronic Residual codes; unclassified (5 sources) Bilateral lower limb edema; Translations: [Localized edema] 07-10-2024 Episodic Spondylosis; intervertebral disc disorders; other back problems (5 sources) Lumbar spondylosis; Translations: [Lumbar adjacent segment disease with spondylolisthesis] Onset: 05-02-2024 06-01-2024 Chronic Unclassified (1 source) Screening mammography ; Translations: [Encounter for screening mammogram for malignant neoplasm of breast] Onset: 03-18-2017 03-18-2017 Unclassified (1 source) M25.551 - Pain in right hip,M48.061 - Spinal stenosis, lumbar region without neurogenic claudication Unclassified (1 source) Supraventricular tachycardia, unspecified; Translations: [Supraventricular tachycardia, unspecified] Onset: 07-10-2024 Unclassified (1 source) Low back pain, unspecified; Translations: [Low back pain, unspecified] Onset: 05-31-2024 Past or Other Problems Problem Classification Problem Date Documented Da te Episodic/Chronic Conditions associated with dizziness or vertigo (20 sources) Dizziness; Translations: [Dizziness and giddiness] Onset: 12-01-2022 Episodic Fluid and electrolyte disorders (4 sources) Hyponatremia; Translations: [Hypo-osmolality and hyponatremia] Onset: 03-02-2024 08-01-2023 Episodic Genitourinary symptoms and ill-defined conditions (7 sources) Urgent desire to urinate; Translations: [Urgency of urination] Onset: 05-12-2009 Resolved: 05-29-2010 05-29-2010 Episodic Malaise and fatigue (6 sources) Fatigue; Translations: [Other fatigue] Onset: 07-10-2024 07-10-2024 Episodic Other and unspecified benign neoplasm (20 [...] [Unsteadiness on feet] Onset: 12-01-2022 Episodic Other non-traumatic joint disorders (1 source) Pain in right hip; Translations: [Pain in right hip] Onset: 05-31-2024 Episodic Other non-traumatic joint disorders (1 source) Pain in right knee; Translations: [Pain in right knee] Onset: 06-14-2024 Episodic Other screening for suspected conditions (not mental disorders or infectious disease) (20 sources) Mammography abnormal; Translations: [Other abnormal and inconclusive findings on diagnostic imaging of breast] Onset: 05-16-2007 05-16-2007 Episodic Residual codes; unclassified (20 sources) Postoperative state; Translations: [Other specified postprocedural states] Onset: 10-14-2009 10-14-2009 Episodic Residual codes; unclassified (7 sources) Disturbance of consciousness; Translations: [Transient alteration of awareness] Onset: 01-03-2006 Resolved: 03-17-2016 03-17-2016 Episodic Residual codes; unclassified (1 source) Localized edema; Translations: [Localized edema] Onset: 07-10-2024 Episodic Spondylosis; intervertebral disc disorders; other back problems (20 sources) Spinal stenosis of lumbar region; Translations: [Spinal stenosis, lumbar region without neurogenic claudication] Onset: 04-21-2006 04-21-2006 Episodic Results Test Name Value Interpretation Reference Range Facility AAA Screeningon 01-21-2025 AAA Screening [facility] Cardi[facility] [address] [place] [address] AAA Screening 01/21/25 0848 MR#: [id number] Acct: [id number] Name: KATRINA MANCINI Rep #: [id number] : 1940 84 From: Tristen Calloway MD Attending Dr: Dr. Samir Forrest MD Status: REG CLI Ordering Dr: Samir Forrest MD Date: 01/21/25 Location: [place] Sex: F C Admitted: Reason For Study Reason For Study: Family history of AAA Aorta Measurements Aorta Doppler Measurements Proximal aorta measures2.37 x 2.27cm. in cross-sectional Peak systolic flow velocities within the proximal aorta axis. measure 81.4 cm/sec. Proximal aorta measures2.28cm. in longitudinal axis. Peak systolic flow velocities within the mid aorta measure Mid aorta measures1.45 x 1.40cm. in cross-sectional axis. 77.7 cm/sec. Mid aorta measures1.45cm. in longitudinal axis. Peak systolic flow velocities within the distal aorta Distal aorta measures1.20 x 1.18cm. in cross-sectional axis.measure 74.1 cm/sec. Distal aorta measures1.20cm. in longitudinal axis. Left Iliac Artery Left iliac artery measures 0.91 x 0.91 cm. in the cross-sectional axis. Left iliac artery measures 0.91 cm. in the longitudinal axis. Peak systolic velocity in the left iliac artery measures 94.1 cm/sec. Right Iliac Artery Right iliac artery measures 1.01 x 1.03 cm. in the cross-sectional axis. Right iliac artery measures 0.91 cm. in the longitudinal axis. Peak systolic velocity in the right iliac artery measures 88.6 cm/sec. VL/AAA Screening Interpretation Summary Aorta patent, normal caliber. Bilateral iliac arteries patent, normal caliber. Ordering Physician: Samir Forrest Referring Physician: Magalys Mcclure Performed By: Vivian Monaco RVT 01/21/25 1113 Date Tristen Calloway MD CC: Dr. Samir Forrest MD; Dr. Magalys Mcclure MD Date Dictated: 01/21/2548 Date Transcribed: 01/21/251112 Consulting Psychologist: Signed Normal [facility] Cardiovascular ultrasound re portOrdered By: Tristen Calloway on 01-21-2025 Study report [facility] Cardiovascular Services [address] [place] [address] AAA Screening 01/21/25847 MR#: [id number] Acct: [id number] Name: KATRINA MANCINI Rep #:[id number] : 1940 84 From: Tristen Muñoz Attending Dr: Dr. Samir Forrest MD Status: REG CLI Ordering Dr: Samir Forrest MD Date: Location: US Sex: F C Admitted: Reason For Study Reason For Study: Family history of AAA Aorta Measurements Aorta Doppler Measurements Proximal aorta measures2.37 x 2.27cm. in cross-sectional Peak systolic flow velocities within the proximal aorta axis. measure 81.4 cm/sec. Proximal aorta measures2.28cm. in longitudinal axis. Peak systolic flow velocities within the mid aorta measure Mid aorta measures1.45 x 1.40cm. in cross-sectional axis. 77.7 cm/sec. Mid aorta measures1.45cm. in longitudinal axis. Peak systolic flow velocities within the distal aorta Distal aorta measures1.20 x 1.18cm. in cross-sectional axis.measure 74.1 cm/sec. Distal aorta measures1.20cm. in longitudinal axis. Left Iliac Artery Left iliac artery measures 0.91 x 0.91 cm. in the cross-sectional axis. Left iliac artery measures 0.91 cm. in the longitudinal axis. Peak systolic velocity in the left iliac artery measures 94.1cm/sec. Right Iliac Artery Right iliac artery measures 1.01 x 1.03 cm. in the cross-sectional axis. Right iliac artery measures 0.91 cm. in the longitudinal axis. Peak systolic velocity in the right iliac artery measures 88.6 cm/sec. VL/AAA Screening Interpretation Summary Aorta patent, normal caliber. Bilateral iliac arteries patent, normal caliber. Ordering Physician: Samir Forrest Referring Physician: Magalys Mcclure Performed By: Vivian Monaco RVT 01/21/25 1113 Date _ Tristen Calloway MD CC: Dr. Samir Forrest MD; Dr. Magalys Mcclure MD ~ Date Dictated: 01/21/2548 Date Transcribed: 01/21/251112 Consulting Psychologist: Signed [facility] Work Phone: Cardiology Visit Reporton Cardiology Visit Report [facility] [address] [place] [address]. [address] [place] [address] OFFICE VISIT Date of Service: 01/02/25 MR#: [id number] Acct: [id number] Name: KATRINA MANCINI Rep #: [id number] : 1940 Provider: Dr. Samir Forrest MD Age/Sex: 84/F Location: [facility] Status: Signed HPI HPI History of Present Illness Details: This lady is here for follow-up visit. Denies any palpitations. According to her, she has been getting some intrascapular discomfort with moderate to strenuous exertion. Not very specific about it. Not sure about the duration. No radiation to the arm neck or jaw. Not sure about the quality of the discomfort. 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 Required: No Accompanied by: Self Is patient in pain?: No Allergies codeine Adverse Reaction (Mild, Verified 01/02/25 12:56) Vomiting meperidine HCl (From Demerol) Adverse Reaction (Mild, Verified 01/02/25 12:56) Nausea morphine Adverse Reaction (Mild, Verified 01/02/25 12:56) Vomiting ofloxacin (From Floxin) Adverse Reaction (Mild, Verified 01/02/25 12:56) Other sulfamethoxazole (From Bactrim) Adverse Reaction (Mild, Verified 01/02/25 12:56) Nausea sumatriptan (From Imitrex) Adverse Reaction (Mild, Verified 01/02/25 12:56) Other sumatriptan succinate (From Imitrex) Adverse Reaction (Mild, Verified 01/02/25 12:56) Other trimethoprim (From Bactrim) Adverse Reaction (Mild, Verified 01/02/25 12:56) Nausea Medications ???Medication ???Instructions ???Recorded ???Confirmed ???Type multivitamin 1 cap PO QDAY 06/16/17 01/02/25 Hi story rosuvastatin 10 mg tablet (Crestor) 10 mg PO QDAY 06/16/17 01/02/25 History verapamil 240 mg 24 hr 240 mg PO QDAY 06/16/17 01/02/25 H istory capsule,extended release (Verelan) acetaminophen 325 mg tablet 650 mg PO DAILY 04/08/23 05/31/24 History (Tylenol) cholecalciferol (vitamin D3) 25 1,000 unit PO DAILY 04/08/2301/02 History mcg (1,000 unit) capsule omeprazole 20 mg capsule,delayed 20 mg PO DAILY 04/08/23 01/02/25 H istory release compress.stocking,knee ,reg,med #12 ea 07/10/24 07/10/24 Rx calcium 600 mg (as carbonate)-vit 1 tab PO QDAY 01/02/25 01/02/25 H istory D3 10 mcg (400 unit)-minerals tablet carbamazepine 200 mg tablet See Rx Instructions PO BID 5 01/02/25 History (Tegretol) Ejection fraction %: 64 Have you fallen in the past year?: Yes [facility] Medical History (Updated 01/02/25 @ 13:[address] Samir Forrest MD) Supraventricular tachycardia Hypertension Vestibular disorder ( [...] Sleep apnea Oral lichen planus Surgical History (Updated 01/02/25 @ 12:59 by Marcella Singh) H/O radiofrequency ablation (RFA) of nerve of lumbar spine H/O hand surgery S/P cataract extraction History [...] additional social history: Andreas Ho are retired ROS Const Const: Positive for fatigue and weakness; Negative for headache(s) or weight gain ENT ENT: Positive for balance problems; Negative for headache(s), dizziness or Nosebleed/epistaxis Cardio Chest Pain: No Palpitations (more content not included)... Normal [facility] 12-19-2024 [facility] Telephone (SLEWST) KATRINA MANCINI ([id number]) 1940 F Date Time Provider Department 12/19/24 AB SHAFFER JR During your visit today, we recorded the following information about you: Melissa Martinez LPN 12/19/2024 4:01 PM Signed Patient calling Dr Mcclure did an overnight pulse ox test on her and she said her sleep apnea is not controlled. Advised to have Dr office fax copy of the results to Dr Shaffer office. Patient is calling office back to ask that it is done. Simran King LPN 12/20/2024 2:19 PM Signed Records have been received and scanned into Pt chart under sleep study. Pt Sleep apnea is not controlled. Forward to Dr. Mccarthy. SAYRA Capps William J Jr., MD 12/21/2024 4:55 PM Signed As in the past, would advise pt to have HSAT while using oral appliance. Previously declined further sleep studies including not wanting to be in the sleep lab. If HSAT shows persistence of respiratory events will need adjustment of oral appliance or consideration of other treatment. Note that at prior visits, reported no s/s of MELA. MD Delon Manning Lori, LPN 12/24/2024 1:41 PM Signed Phoned patient and reviewed message with her. Patient agreeable with HSAT while using oral device. SAYRA Whaley William J Jr., MD 12/24/2024 4:11 PM Signed Order placed 12/21/24. MD Delon Manning Lori, LPN 12/24/2024 4:16 PM Addendum Message left for patient to return call for update. Please give patient number to call and schedule HSAT. SAYRA Whaley Lori, LPN 12/25/2024 2:48 PM Signed Labs received and scanned to patient chart. Provider updated. Gina Jernigan LPN Allergies As of Date: 12/19/2024 Noted Allergy Reaction CODEINE 10/17/2002 Comments: [place] vomitting FLOXIN (OFLOXACIN) 04/18/2006 Comments: depression IMITREX (SUMATRIPTAN SUCCINATE) 04/18/2006 Comments: sweating, drop in BP MORPHINE 10/17/2002 Comments: [place] vomitting OPIOIDS-MEPERIDINE AND RELATED 10/17/2002 Comments: [place] vomitting SULFA (SULFONAMIDE ANTIBIOTICS) 10/17/2002 Comments: [place] vomtting [id number] ANTIMIGRAINE UUETTO0510/17/2002 Comments: heart palpitations Date Reviewed: 03/02/2024 Reviewed by: Ab Shaffer Jr., MD - Fully Assessed Reason for Visit: Dr Mcclure office should lesley faxing overnight pulse ox norma [Other] Primary Visit Diagnosis:MELA (obstructive sleep apnea) [G47.33] Order(s):HOME SLEEP APNEA TEST (HSAT) [[id number]] Order #: [id number] FUTURE Prescriptions as of 12/25/2024 - carBAMazepine (TEGRETOL) 200 mg tablet TAKE 1/2 TABLET BY MOUTH IN THE MORNING AND 1 AND 1/2 TABLETS IN THE EVENING - metoprolol tartrate, short acting, (LOPRESSOR) 25 mg tablet Take 12.5 mg by mouth two times a day. - cloNIDine HCl (CATAPRES) 0.2 mg tablet Take 0.2 mg by mouth two times a day. - verapamil SR (CALAN SR) 240 mg CR tablet Take 1 tablet by mouth once daily. - progesterone micronized (PROMETRIUM) 200 mg capsule Take by mouth. - Clobetasol Propionate 0.05 % gel Apply [...] as needed Problem List As Of Date 12/19/2024 Noted Resolved HYPERLIPIDEMIA NEC/NOS [E78.5] 02/02/2005 08/26/2015 Generalized convulsive epilepsy (HCC) [G40.309] 02/02/2005 ESOPHAGEAL REFLUX [K21.9] 02/02/2005 Migraine without aura [G43.009] 02/02/2005 SOMNOLENCE [R40.4] 01/03/2006 03/17/2016 SPINAL STENOSIS-LUMBAR [M48.061] 04/21/2006 PERS HX COLONIC POLYPS [Z86.0100] 04/19/2007 DIARRHEA NOS [R19.7] 04/19/2007 UNSP ABNORMAL MAMMOGRAM [R92.8] 05/16/2007 LUMBAGO [M54.50] 02/19/2008 CERVICALGIA [M54.2] 02/21/2008 Postmenopausal Atrophic Vaginitis [N95.2] 05/12/2009 Symptomatic Menopausal or Female Climacteric St*05/12/2009 Urgency of urination [R39.15] 05/12/2009 05/29/2010 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] 10/14/2009 Lichen planus [L43.9] 03/17/2010 Postmenopausal bleeding [N95.0] 07/06/2011 03/14/2012 Hyperlipidemia [E78.5] 08/26/2015 Dizziness [R42] 12/01/2022 Unsteadiness [R26.81] 12/01/2022 Dizziness and giddiness [R42] 03/30/2023 Encounter Status:Closed by AB SHAFFER on 12/21/24 Normal [facility] Absolute lymphocyte countOrd ered By: Magalys Mcclure on 11-20-2024 Lymphocytes Auto (Unsp spec) [#/Vol] 1.01 10*3/uL 0.83-4.51 [facility] Absolute neutrophil countOrd ered By: Magalys Mcclure on 11-20-2024 Neutrophils (Bld) [#/Vol] 3.2 10*3/uL 2.0-7.7 [facility] Anion gap in Serum or Plasma Ordered By: Magalys Mcclure on 11-20-2024 Anion gap [Moles/Vol] 11 mmol/L 5- [facility] Automated lymphocyte count a s percentage of total leukocytesOrdered By: Magalys Mcclure on 11-20-2024 Lymphocytes/100 WBC Auto (Unsp spec) 20.7 % - [facility] BUN/creatinine ratioOrdered By: Magalys Mcclure on 11-20-2024 Urea nitrogen/Creatinine [Mass ratio] 26.4 mg/mg High 10- [facility] Basophil percentageOrdered B y: Magalys Mcclure on 11-20-2024 Basophils/100 WBC (Bld) 0.6 % 0- [facility] Bilirubin, totalOrdered By: Magalys Mcclure on 11-20-2024 Bilirubin [Mass/Vol] 0.21 mg/dL 0.00-1.30 [facility] CBC W/Diff, Automatedon 11-11 Absolute Lymph 1.01 X10 3/uL Normal 0.83-4.51 [facility] Comment on above: Order Comment: Order Date: 11/20/24 Order Info: 0184-1 - CBCD Performed By: #### L 500.2256, L100.0100, L500.4050 #### [facility] [address] [place], [place], [id number] Absolute Neut 3.2 X10 3/uL Normal 2.0-7.7 [facility] Comment on above: Order Comment: Order Date: 11/20/24 Order Info: 0184-1 - CBCD Performed By: #### L 500.4100, L100.0100, L500.4050 #### [facility] [address] [place], [address] Basophils/100 WBC (Bld) 0.6 % Normal 0-1 [facility] Comment on above: Order Comment: Order Date: 11/20/24 Order Info: 0184-1 - CBCD Performed By: #### L 500.4100, L100.0100, L500.4050 #### [facility] [address] [place], [address] Eosinophils/100 WBC (Bld) 1.8 % Normal 0-5 [facility] Comment on above: Order Comment: Order Date: 11/20/24 Order Info: 0184-1 - CBCD Performed By: #### L 500.4100, L100.0100, L500.4050 #### [facility] [address] [place], [address] Erythrocyte distribution width (RBC) [Ratio] 11.7 % Normal 11.6-14.6 [facility] Comment on above: Order Comment: Order Date: 11/20/24 Order Info: 0184-1 - CBCD Performed By: #### L 500.4100, L100.0100, L500.4050 #### [facility] [address] [place], [address] Hematocrit (Bld) [Volume fraction] 38.0 % Normal 37-47 [facility] Comment on above: Order Comment: Order Date: 11/20/24 Order Info: 0184-1 - CBCD Performed By: #### L 500.4100, L100.0100, L500.4050 #### [facility] [address] [place], [address] Hemoglobin (Bld) [Mass/Vol] 13.3 g/dL Normal 12.0-15.0 [facility] Comment on above: Order Comment: Order Date: 11/20/24 Order Info: 0184- - CBCD Performed By: #### L 500.4100, L100.0100, L500.4050 #### [facility] [address] [place], [address] IG% 0.400 Normal 0.0-0.9 [facility] Comment on above: Order Comment: Order Date: 11/20/24 Order Info: 018- - CBCD Result Comment: IG% - Immature Granulocytes (promyelocytes, myelocytes and metamyelocytes) > 1% indicates that a LEFT SHIFT is Present. Performed By: #### L 500.4100, L100.0100, L500.4050 #### [facility] [address] [place], [address] Lymphocytes/100 WBC (Bld) 20.7 % Normal 19-41 [facility] Comment on above: Order Comment: Order Date: 11/20/24 Order Info: [id number] - CBCD Performed By: #### L 500.4100, L100.0100, L500.4050 #### [facility] [address] [place], [address] MCH (RBC) [Entitic mass] 33.9 pg High 27.0-32.0 [facility] Comment on above: Order Comment: Order Date: 11/20/24 Order Info: 018- - CBCD Performed By: #### L 500.4100, L100.0100, L500.4050 #### [facility] [address] [place], [address] MCHC (RBC) [Mass/Vol] 35.0 g/dL Normal 32-36 [facility] Comment on above: Order Comment: Order Date: 11/20/24 Order Info: 018- - CBCD Performed By: #### L 500.4100, L100.0100, L500.4050 #### [facility] [address] [place], [address] MCV (RBC) [Entitic vol] 96.9 fL Normal 81-99 [facility] Comment on above: Order Comment: Order Date: 11/20/24 Order Info: 0184-1 - CBCD Performed By: #### L 500.4100, L100.0100, L500.4050 #### [facility] [address] [place], [address] Monocytes/100 WBC (Bld) 11.3 % High 0-10 [facility] Comment on above: Order Comment: Order Date: 11/20/24 Order Info: 0184-1 - CBCD Performed By: #### L 500.4100, L100.0100, L500.4050 #### [facility] [address] [place], [address] Neutrophils/100 WBC (Bld) 65.2 % Normal 47-70 [facility] Comment on above: Order Comment: Order Date: 11/20/24 Order Info: 0184-1 - CBCD Performed By: #### L 500.4100, L100.0100, L500.4050 #### [facility] [address] [place], [address] Nucleated RBC (Bld) [#/Vol] 0 10*3/uL Normal 0-5 [facility] Comment on above: Order Comment: Order Date: 11/20/24 Order Info: 0184-1 - CBCD Performed By: #### L 500.4100, L100.0100, L500.4050 #### [facility] [address] [place], [address] Platelet mean volume (Bld) [Entitic vol] 9.0 fL Normal 6.2-12.0 [facility] Comment on above: Order Comment: Order Date: 11/20/24 Order Info: 0184-1 - CBCD Performed By: #### L 500.4100, L100.0100, L500.4050 #### [facility] [address] [place], [address] Platelets (Bld) [#/Vol] 319 10*3/uL Normal 150-450 [facility] Comment on above: Order Comment: Order Date: 11/20/24 Order Info: 0184-1 - CBCD Performed By: #### L 500.4100, L100.0100, L500.4050 #### [facility] [address] [place], [address] RBC (Bld) [#/Vol] 3.92 10*6/uL Low 4.2-5.4 [facility] Comment on above: Order Comment: Order Date: 11/20/24 Order Info: 018- - CBCD Performed By: #### L 500.4100, L100.0100, L500.4050 #### [facility] [address] [place], [address] RDW SD 41.4 fl Normal 35.1-43.9 [facility] Comment on above: Order Comment: Order Date: 11/20/24 Order Info: 018- - CBCD Performed By: #### L 500.4100, L100.0100, L500.4050 #### [facility] [address] [place], [address] WBC (Bld) [#/Vol] 4.9 10*3/uL Normal 4.4-11.0 [place] Comment on above: Order Comment: Order Date: 11/20/24 Order Info: 0184-1 - CBCD Performed By: #### L 500.4100, L100.0100, L500.4050 #### [facility] [address] [place], [address] Calculated very low density lipoprotein (VLDL) cholesterol measurementOrdered By: Magalys Mcclure on 11-20-2024 Calculated very low density lipoprotein (VLDL) cholesterol measurement 52 mg/dL High 5-40 [facility] Carbon dioxide, total [Moles /volume] in Central venous bloodOrdered By: Magalys Mcclure on 11-20-2024 CO2 [Moles/Vol] 27.5 mmol/L 21.0-32.0 [facility] Chloride assayOrdered By: Beverly Mcclure on 11-20-2024 Chloride [Moles/Vol] 93 mmol/L Low 98-108 [facility] Comprehensive Metabolic Prof ilon 11-20-2024 Albumin [Mass/Vol] 4.7 g/dL Normal 3.4-4.8 [place] Comment on above: Order Comment: Order Date: 11/20/24 Order Info: [id number] - CMP Order Info: [id number] - LIPID Performed By: #### L 500.4100, L100.0100, L500.4050 #### [facility] [address] [place], [address] Albumin/Globulin [Mass ratio] 1.8 {ratio} Normal 0.9-2.4 [facility] Comment on above: Order Comment: Order Date: 11/20/24 Order Info: [id number] - CMP Order Info: [id number] - LIPID Performed By: #### L 500.4100, L100.0100, L500.4050 #### [facility] [address] [place], [address] ALK PHOS 101 U/L Normal 35-104 [facility] Comment on above: Order Comment: Order Date: 11/20/24 Order Info: [id number] - CMP Order Info: [id number] - LIPID Performed By: #### L 500.4100, L100.0100, L500.4050 #### [facility] [address] [place], [address] ALT [Catalytic activity/Vol] 21 U/L Normal <=34 [facility] Comment on above: Order Comment: Order Date: 11/20/24 Order Info: [id number] - CMP Order Info: [id number] - LIPID Performed By: #### L 500.4100, L100.0100, L500.4050 #### [facility] [address] [place], [address] AST [Catalytic activity/Vol] 26 U/L Normal <=31 [facility] Comment on above: Order Comment: Order Date: 11/20/24 Order Info: [id number] - CMP Order Info: [id number] - LIPID Performed By: #### L 500.4100, L100.0100, L500.4050 #### [facility] [address] [place], [address] Bilirubin [Mass/Vol] 0.21 mg/dL Normal 0.00-1.30 [facility] Comment on above: Order Comment: Order Date: 11/20/24 Order Info: [id number] - CMP Order Info: [id number] - LIPID Performed By: #### L 500.4100, L100.0100, L500.4050 #### [facility] [address] [place], [address] BUN/CRE 26.4 RATIO High 10-20 [facility] Comment on above: Order Comment: Order Date: 11/20/24 Order Info: [id number] - CMP Order Info: [id number] - LIPID Performed By: #### L 500.4100, L100.0100, L500.4050 #### [facility] [address] [place], [address] Calcium [Mass/Vol] 9.7 mg/dL Normal 7.6-11.0 [place] Comment on above: Order Comment: Order Date: 11/20/24 Order Info: [id number] - CMP Order Info: [id number] - LIPID Performed By: #### L 500.4100, L100.0100, L500.4050 #### [facility] [address] [place], [address] Chloride [Moles/Vol] 93 mmol/L Low 98-108 [facility] Comment on above: Order Comment: Order Date: 11/20/24 Order Info: [id number] - CMP Order Info: [id number] - LIPID Performed By: #### L 500.4100, L100.0100, L500.4050 #### [facility] [address] [place], [address] CO2 [Moles/Vol] 27.5 mmol/L Normal 21.0-32.0 [facility] Comment on above: Order Comment: Order Date: 11/20/24 Order Info: 0786- - CMP Order Info: [id number] - LIPID Performed By: #### L 500.4100, L100.0100, L500.4050 #### [facility] [address] [place], [address] Creatinine [Mass/Vol] 0.75 mg/dL Normal 0.70-1.20 [facility] Comment on above: Order Comment: Order Date: 11/20/24 Order Info: 0786- - CMP Order Info: [id number] - LIPID Performed By: #### L 500.4100, L100.0100, L500.4050 #### [facility] [address] [place], [address] GAP 11 Normal 5-15 [facility] Comment on above: Order Comment: Order Date: 11/20/24 Order Info: [id number] - CMP Order Info: [id number] - LIPID Performed By: #### L 500.4100, L100.0100, L500.4050 #### [facility] [address] [place], [address] GFR/1.73 sq M.predicted among non-blacks MDRD (S/P/Bld) [Vol rate/Area] 77 mL/min/{1.73_m2} Normal >60 [facility] Comment on above: Order Comment: Order Date: 11/20/24 Order Info: [id number] - CMP Order Info: [id number] - LIPID Result Comment: mL/m in/1.73m2 CKD-EPI Creatinine Equation (2020) Performed By: #### L 500.4100, L100.0100, L500.4050 #### [facility] [address] [place], [address] Globulin (S) [Mass/Vol] 2.6 g/dL Normal 2.2-4.2 [facility] Comment on above: Order Comment: Order Date: 11/20/24 Order Info: [id number] - CMP Order Info: [id number] - LIPID Performed By: #### L 500.4100, L100.0100, L500.4050 #### [facility] [address] [place], [address] Glucose [Mass/Vol] 96 mg/dL Normal 70-99 [place] Comment on above: Order Comment: Order Date: 11/20/24 Order Info: 0786- - CMP Order Info: [id number] - LIPID Performed By: #### L 500.4100, L100.0100, L500.4050 #### [facility] [address] [place], [address] Potassium [Moles/Vol] 4.1 mmol/L Normal 3.3-5.1 [facility] Comment on above: Order Comment: Order Date: 11/20/24 Order Info: 0786- - CMP Order Info: [id number] - LIPID Performed By: #### L 500.4100, L100.0100, L500.4050 #### [facility] [address] [place], [address] Sodium [Moles/Vol] 132 mmol/L Low 133-145 [place] Comment on above: Order Comment: Order Date: 11/20/24 Order Info: [id number] - CMP Order Info: [id number] - LIPID Performed By: #### L 500.4100, L100.0100, L500.4050 #### [facility] [address] [place] [place], [address] T PROT 7.2 g/dL Normal 5.9-8.4 [facility] Comment on above: Order Comment: Order Date: 11/20/24 Order Info: [id number] - CMP Order Info: [id number] - LIPID Performed By: #### L 500.4100, L100.0100, L500.4050 #### [facility] [address] [place], [address] Urea nitrogen [Mass/Vol] 20 mg/dL High 4-19 [facility] Comment on above: Order Comment: Order Date: 11/20/24 Order Info: [id number] - CMP Order Info: [id number] - LIPID Performed By: #### L 500.4100, L100.0100, L500.4050 #### [facility] [address] [place], [address] Eosinophil percentageOrdered By: Magalys Mcclure on 11-20-2024 Eosinophils/100 WBC (Bld) 1.8 % 0-5 [facility] Erythrocyte distribution wid th ratioOrdered By: Magalys Mcclure on 11-20-2024 Erythrocyte distribution width (RBC) [Ratio] 11.7 % 11.6-14.6 [facility] Erythrocyte distribution wid th standard deviationOrdered By: Magalys Mcclure on 11-20-2024 Erythrocyte distribution width (RBC) [Ratio] 41.4 fl 35.1-43.9 [facility] Glomerular filtration rate ( GFR) estimation/1.73 sq m using serum, plasma, or whole bOrdered By: Magalys Mcclure on 11-20-2024 GFR/1.73 sq M.predicted among non-blacks MDRD (S/P/Bld) [Vol rate/Area] 77 mL/min/{1.73_m2} >60 [facility] Comment on above: mL/min/1.73m2 CKD-EP I Creatinine Equation (2020) Hematocrit Auto (Bld) [Volum e fraction]Ordered By: Magalys Mcclure on 11-20-2024 Hematocrit (Bld) [Volume fraction] 38.0 % 37-47 [facility] Hemoglobin measurementOrdere d By: Magalys Mcclure on 11-20-2024 Hemoglobin (Bld) [Mass/Vol] 13.3 g/dL 12.0-15.0 [facility] Immature granulocytes/100 WB C Auto (Bld)Ordered By: Magalys Mcclure on 11-20-2024 Immature granulocytes/100 WBC (Bld) 0.400 % 0.0-0.9 [facility] Comment on above: IG% - Immature Granu locytes (promyelocytes, myelocytes and metamyelocytes) > 1% indicates that a LEFT SHIFT is Present. LDL calc ser/plasOrdered By: Magalys Mcclure on 11-20-2024 Cholesterol in LDL [Mass/Vol] 82 mg/dL [facility] Comment on above: Qvaoecmqmq=065-531 m g/dL & Higher Rfad=398 mg/dL or greater Laboratory - Chemistry and C hemistry - challengeOrdered By: Magalys Mcclure on 11-20-2024 AST [Catalytic activity/Vol] 26 U/L <32 [facility] Lipid Profileon 11-20-2024 CHOL:HDL 3.32 Normal [facility] Comment on above: Order Comment: Order Date: 11/20/24Order Info: [id number] - CMPOrder Info: [id number] - LIPID Performed By: #### L 500.4100, L100.0100, L500.4050 ####[facility] [address] [place], [place], [address] Cholesterol [Mass/Vol] 191 mg/dL Normal <=200 [facility] Comment on above: Order Comment: Order Date: 11/20/24Order Info: [id number] - CMPOrder Info: [id number] - LIPID Result Comment: Chol esterol level, Desirable <200 mg/dL Borderline high cholesterol 200-239 mg/dL High cholesterol >=240 mg/dL Recommendations of the NCEP Adult Treatment Panel for the following risk-cutoff thresholds for the [place] population. Performed By: #### L 500.4100, L100.0100, L500.4050 ####[facility] [address] [place], [address] Cholesterol in HDL [Mass/Vol] 58 mg/dL Normal [facility] Comment on above: Order Comment: Order Date: 11/20/24Order Info: [id number]- - CMPOrder Info: [id number] - LIPID Result Comment: Luli onal Cholesterol Education Program (NCEP) guidelines: <40 mg/dL: Low HDL-cholesterol (major risk factor for CHD) >= 60 mg/dL: High HDL-cholesterol (negative risk factor for CHD) HDL-cholesterol is affected by a number of factors, e.g. smoking, exercise, hormones, sex and age. Performed By: #### L 500.4100, L100.0100, L500.4050 ####[facility] [address] [place], [address] Cholesterol in LDL [Mass/Vol] 82 mg/dL Normal [facility] Comment on above: Order Comment: Order Date: 11/20/24Order Info: [id number]- - CMPOrder Info: [id number] - LIPID Result Comment: Bord nzhlql=674-234 mg/dL Higher Uszn=409 mg/dL or greater Performed By: #### L 500.4100, L100.0100, L500.4050 ####[facility] [address] [place], [address] Cholesterol in VLDL [Mass/Vol] 52 mg/dL High 5-40 [facility] Comment on above: Order Comment: Order Date: 11/20/24Order Info: [id number]- - CMPOrder Info: [id number] - LIPID Performed By: #### L 500.4100, L100.0100, L500.4050 ####[facility] [address] [place], [address] Triglyceride [Mass/Vol] 260 mg/dL High [facility] Comment on above: Order Comment: Order Date: 11/20/24Order Info: [id number] - CMPOrder Info: [id number] - LIPID Result Comment: The drugs N-Acetylcysteine and Metamizole may falsely depress this assay. Normal range: <150 mg/dL Borderline High: 150-199 mg/dL High: 200-499 mg/dL Very High: >500 mg/dL Performed By: #### L 500.4100, L100.0100, L500.4050 ####[facility] [address] [place], [address] MCV (mean corpuscular volume ) determinationOrdered By: Magalys Mcclure on 11-20-2024 MCV (RBC) [Entitic vol] 96.9 fL 81-99 [facility] Mean corpuscular hemoglobin (MCH) determinationOrdered By: Magalys Mcclure on 11-20-2024 MCH (RBC) [Entitic mass] 33.9 pg High 27.0-32.0 [facility] Mean corpuscular hemoglobin concentration (MCHC) determinationOrdered By: Magalys Mcclure on 11-20-2024 MCHC (RBC) [Mass/Vol] 35.0 g/dL 32-36 [facility] Mean platelet volume determi nationOrdered By: Magalys Mcclure on 11-20-2024 Platelet mean volume (Bld) [Entitic vol] 9.0 fL 6.2-12.0 [facility] Monocyte percentageOrdered B y: Magalys Mcclure on 11-20-2024 Monocytes/100 WBC (Bld) 11.3 % High 0-10 [facility] Neutrophil percentageOrdered By: Magalys Mcclure on 11-20-2024 Neutrophils/100 WBC (Bld) 65.2 % 47-70 [facility] Nucleated red blood cell per centageOrdered By: Magalys Mcclure on 11-20-2024 Nucleated RBC/100 WBC (Bld) [Ratio] 0 % 0-5 [facility] Platelet countOrdered By: Beverly Mcclure on 11-20-2024 Platelets (Bld) [#/Vol] 319 10*3/uL 150-450 [facility] Potassium measurement (mass/ volume)Ordered By: Magalys Mcclure on 11-20-2024 Potassium (Unsp spec) [Mass/Vol] 4.1 mmol/L 3.3-5.1 [facility] RBC Auto (Bld) [#/Vol]Ordere d By: Magalys Mcclure on 11-20-2024 RBC (Bld) [#/Vol] 3.92 10*6/uL Low 4.2-5.4 [facility] Screening total cholesterol/ high density lipoprotein (HDL) cholesterol ratioOrdered By: Magalys Mcclure on 11-20-2024 Cholesterol.total/Marcelina sterol in HDL [Mass ratio] 3.32 {ratio} [facility] Serum creatinine measurement (mass/volume)Ordered By: Magalys Mcclure on 11-20-2024 Creatinine [Mass/Vol] 0.75 mg/dL 0.70-1.20 [facility] Serum globulin measurementOr dered By: Magalys Mcclure on 11-20-2024 Globulin (S) [Mass/Vol] 2.6 g/dL 2.2-4.2 [facility] Serum glucose measurement (m ass/volume)Ordered By: Magalys Mcclure on 11-20-2024 Glucose [Mass/Vol] 96 mg/dL 70-99 [place] Serum or plasma alanine meraz otransferase (ALT) measurementOrdered By: Magalys Mcclure on 11-20-2024 ALT [Catalytic activity/Vol] 21 U/L <35 [facility] Serum or plasma albumin julius urement (mass/volume)Ordered By: Magalys Mcclure on 11-20-2024 Albumin [Mass/Vol] 4.7 g/dL 3.4-4.8 [place] Serum or plasma albumin/glob ulin mass ratioOrdered By: Magalys Mcclure on 11-20-2024 Albumin/Globulin [Mass ratio] 1.8 {ratio} 0.9-2.4 [facility] Serum or plasma alkaline vandana sphatase measurementOrdered By: Magalys Mcclure on 11-20-2024 ALP [Catalytic activity/Vol] 101 U/L 35-104 [facility] Serum or plasma calcium julius urement (mass/volume)Ordered By: Magalys Mcclure on 11-20-2024 Calcium [Mass/Vol] 9.7 mg/dL 7.6-11.0 [place] Serum or plasma cholesterol in HDL measurement (mass/volume)Ordered By: Magalys Mcclure on 11-20-2024 Cholesterol in HDL [Mass/Vol] 58 mg/dL >40 [facility] Comment on above: National Cholesterol Education Program (NCEP) guidelines:<40 mg/dL: Low HDL-cholesterol (major risk factor for CHD)>= 60 mg/dL: High HDL-cholesterol (negative risk factor for CHD)HDL-cholesterol is affected by a number of factors, e.g. smoking, exercise, hormones, sex and age. Serum or plasma cholesterol measurement (mass/volume)Ordered By: Magalys Mcclure on 11-20-2024 Cholesterol [Mass/Vol] 191 mg/dL <201 [facility] Comment on above: Cholesterol level, D esirable <200 mg/dLBorderline high cholesterol 200-239 mg/dLHigh cholesterol >=240 mg/dLRecommendations of the NCEP Adult Treatment Panel for the following risk-cutoff thresholds for the [place] population. Serum or plasma urea nitroge n measurement (mass/volume)Ordered By: Magalys Mcclure on 11-20-2024 Urea nitrogen [Mass/Vol] 20 mg/dL High 4-19 [facility] Sodium levelOrdered By: Magalys Mcclure on 11-20-2024 Sodium [Moles/Vol] 132 mmol/L Low 133-145 [place] Total proteinOrdered By: Kojo Mcclure on 11-20-2024 Protein [Mass/Vol] 7.2 g/dL 5.9-8.4 [place] Triglycerides measurementOrd ered By: Magalys Mcclure on 11-20-2024 Triglyceride [Mass/Vol] 260 mg/dL High <199 [facility] Comment on above: The drugs N-Acetylcy steine and Metamizole may falsely depress this assay. Normal range: <150 mg/dLBorderline High: 150-199 mg/dLHigh: 200-499 mg/dLVery High: >500 mg/dL Vitamin D,25 Hydroxyon 11-20 Vitamin D 25-OH 37.5 ng/mL Normal 30-100 [facility] Comment on above: Order Comment: Order Date: 11/20/24 Order Info: [id number] - CMP Order Info: [id number] - LIPID Result Comment: Milagros min D Status Deficiency: <20 ng/mL (50nmol/L) Insufficiency: 20-30 ng/mL (50-75 nmol/L) Sufficiency: 30-100 ng/mL (75-250 nmol/L) Toxicity: >100 ng/mL (>250 nmol/L) Performed By: #### L 506.1001 #### [facility] [address] [place], [address] White blood cell (WBC) count Ordered By: Magalys Mcclure on 11-20-2024 WBC (Bld) [#/Vol] 4.9 10*3/uL 4.4-11.0 [place] Anion gap in Serum or Plasma Ordered By: Samir Forrest on 08-16-2024 Anion gap [Moles/Vol] 13 mmol/L 5-15 [facility] BUN/creatinine ratioOrdered By: Samir Forrest on 08-16-2024 Urea nitrogen/Creatinine [Mass ratio] 19.6 mg/mg 10- [facility] Bilirubin, totalOrdered By: Samir Forrest on 08-16-2024 Bilirubin [Mass/Vol] 0.26 mg/dL 0.00-1.30 [facility] CBC-Complete Blood Cnt No Di ffon 08-16-2024 Erythrocyte distribution width (RBC) [Ratio] 11.3 % Low 11.6-14.6 [facility] Comment on above: Performed By: #### L 100.0500, L501.3620, L501.9520, L500.4050 ####[facility] [address] [place], [address] Hematocrit (Bld) [Volume fraction] 39.4 % Normal 37-47 [facility] Comment on above: Performed By: #### L 100.0500, L501.3620, L501.9520, L500.4050 ####[facility] [address] [place], [address] Hemoglobin (Bld) [Mass/Vol] 13.5 g/dL Normal 12.0-15.0 [facility] Comment on above: Performed By: #### L 100.0500, L501.3620, L501.9520, L500.4050 ####[facility] [address] [place], [address] MCH (RBC) [Entitic mass] 33.6 pg High 27.0-32.0 [facility] Comment on above: Performed By: #### L 100.0500, L501.3620, L501.9520, L500.4050 ####[facility] [address] [place], [address] MCHC (RBC) [Mass/Vol] 34.3 g/dL Normal 32-36 [facility] Comment on above: Performed By: #### L 100.0500, L501.3620, L501.9520, L500.4050 ####[facility] [address] [place], [address] MCV (RBC) [Entitic vol] 98.0 fL Normal 81-99 [facility] Comment on above: Performed By: #### L 100.0500, L501.3620, L501.9520, L500.4050 ####[facility] [address] [place], [address] Platelet mean volume (Bld) [Entitic vol] 8.9 fL Normal 6.2-12.0 [facility] Comment on above: Performed By: #### L 100.0500, L501.3620, L501.9520, L500.4050 ####[facility] [address] [place], [address] Platelets (Bld) [#/Vol] 299 10*3/uL Normal 150-450 [facility] Comment on above: Performed By: #### L 100.0500, L501.3620, L501.9520, L500.4050 ####[facility] [address] [place], [address] RBC (Bld) [#/Vol] 4.02 10*6/uL Low 4.2-5.4 [facility] Comment on above: Performed By: #### L 100.0500, L501.3620, L501.9520, L500.4050 ####[facility] [address] [place], [address] RDW SD 41.0 fl Normal 35.1-43.9 [facility] Comment on above: Performed By: #### L 100.0500, L501.3620, L501.9520, L500.4050 ####[facility] [address] [place], [address] WBC (Bld) [#/Vol] 4.1 10*3/uL Low 4.4-11.0 [place] Comment on above: Performed By: #### L 100.0500, L501.3620, L501.9520, L500.4050 ####[facility] [address] [place], [address] CPK Total, Creatine Kinaseon 08-16-2024 CPK TOTAL 47 U/L Normal 24-195 [facility] Comment on above: Performed By: #### L 100.0500, L501.3620, L501.9520, L500.4050 ####[facility] [address] [place], [address] Calculated very low density lipoprotein (VLDL) cholesterol measurementOrdered By: Magalys Mcclure on 08-16-2024 Calculated very low density lipoprotein (VLDL) cholesterol measurement 47 mg/dL High 5-40 [facility] VLDL Cholesterol 47 mg/dL High 5-40 [facility] Carbon dioxide, total [Moles /volume] in Central venous bloodOrdered By: Samir Forrest on 08-16-2024 CO2 [Moles/Vol] 25.2 mmol/L 21.0-32.0 [facility] Chloride assayOrdered By: Irving Forrest on 08-16-2024 Chloride [Moles/Vol] 98 mmol/L 98-108 [facility] Comprehensive Metabolic Prof ilon 08-16-2024 Albumin [Mass/Vol] 4.3 g/dL Normal 3.4-4.8 [place] Comment on above: Performed By: #### L 100.0500, L501.3620, L501.9520, L500.4050 ####[facility] [address] [place], [address] Albumin/Globulin [Mass ratio] 1.6 {ratio} Normal 0.9-2.4 [facility] Comment on above: Performed By: #### L 100.0500, L501.3620, L501.9520, L500.4050 ####[facility] [address] [place], [address] ALK PHOS 104 U/L Normal 35-104 [facility] Comment on above: Performed By: #### L 100.0500, L501.3620, L501.9520, L500.4050 ####[facility] [address] [place], [address] ALT [Catalytic activity/Vol] 14 U/L Normal <=34 [facility] Comment on above: Performed By: #### L 100.0500, L501.3620, L501.9520, L500.4050 ####[facility] [address] [place], [address] AST [Catalytic activity/Vol] 24 U/L Normal <=31 [facility] Comment on above: Performed By: #### L 100.0500, L501.3620, L501.9520, L500.4050 ####[facility] [address] [place], [address] Bilirubin [Mass/Vol] 0.26 mg/dL Normal 0.00-1.30 [facility] Comment on above: Performed By: #### L 100.0500, L501.3620, L501.9520, L500.4050 ####[facility] [address] [place], [address] BUN/CRE 19.6 RATIO Normal 10-20 [facility] Comment on above: Performed By: #### L 100.0500, L501.3620, L501.9520, L500.4050 ####[facility] [address] [place], [address] Calcium [Mass/Vol] 9.9 mg/dL Normal 7.6-11.0 [place] Comment on above: Performed By: #### L 100.0500, L501.3620, L501.9520, L500.4050 ####[facility] [address] [place], [address] Chloride [Moles/Vol] 98 mmol/L Normal 98-108 [facility] Comment on above: Performed By: #### L 100.0500, L501.3620, L501.9520, L500.4050 ####[facility] [address] [place], [address] CO2 [Moles/Vol] 25.2 mmol/L Normal 21.0-32.0 [facility] Comment on above: Performed By: #### L 100.0500, L501.3620, L501.9520, L500.4050 ####[facility] [address] [place], [address] Creatinine [Mass/Vol] 0.89 mg/dL Normal 0.70-1.20 [facility] Comment on above: Performed By: #### L 100.0500, L501.3620, L501.9520, L500.4050 ####[facility] [address] [place], [address] GAP 13 Normal 5-15 [facility] Comment on above: Performed By: #### L 100.0500, L501.3620, L501.9520, L500.4050 ####[facility] [address] [place], [address] GFR/1.73 sq M.predicted among non-blacks MDRD (S/P/Bld) [Vol rate/Area] 63 mL/min/{1.73_m2} Normal >60 [facility] Comment on above: Result Comment: mL/m in/1.73m2 CKD-EPI Creatinine Equation (2020) Performed By: #### L 100.0500, L501.3620, L501.9520, L500.4050 ####[facility] [address] [place], [address] Globulin (S) [Mass/Vol] 2.7 g/dL Normal 2.2-4.2 [facility] Comment on above: Performed By: #### L 100.0500, L501.3620, L501.9520, L500.4050 ####[facility] [address] [place], [address] Glucose [Mass/Vol] 133 mg/dL High 70-99 [place] Comment on above: Performed By: #### L 100.0500, L501.3620, L501.9520, L500.4050 ####[facility] [address] [place], [address] Potassium [Moles/Vol] 3.8 mmol/L Normal 3.3-5.1 [facility] Comment on above: Performed By: #### L 100.0500, L501.3620, L501.9520, L500.4050 ####[facility] [address] [place], [address] Sodium [Moles/Vol] 136 mmol/L Normal 133-145 [place] Comment on above: Performed By: #### L 100.0500, L501.3620, L501.9520, L500.4050 ####[facility] [address] [place], [address] T PROT 7.1 g/dL Normal 5.9-8.4 [facility] Comment on above: Performed By: #### L 100.0500, L501.3620, L501.9520, L500.4050 ####[facility] [address] [place], [address] Urea nitrogen [Mass/Vol] 18 mg/dL Normal 4-19 [facility] Comment on above: Performed By: #### L 100.0500, L501.3620, L501.9520, L500.4050 ####[facility] [address] [place], [address] Erythrocyte distribution wid th ratioOrdered By: Samir Forrest on 08-16-2024 Erythrocyte distribution width (RBC) [Ratio] 11.3 % Low 11.6-14.6 [facility] Erythrocyte distribution wid th standard deviationOrdered By: Samir Forrest on 08-16-2024 Erythrocyte distribution width (RBC) [Entitic vol] 41.0 fL 35.1-43.9 [facility] Erythrocyte distribution width (RBC) [Ratio] 41.0 fl 35.1-43.9 [facility] GFR/1.73 sq M.predicted lb g non-blacks MDRD (S/P/Bld) [Vol rate/Area]Ordered By: Samir Forrest on 08-16-2024 Estimated GFR (MDRD) Non-Af Amer 63 >60 [facility] Comment on above: mL/min/1.73m2 CKD-EP I Creatinine Equation (2020) Glomerular filtration rate ( GFR) estimation/1.73 sq m using serum, plasma, or whole bOrdered By: Samir Forrest on 08-16-2024 GFR/1.73 sq M.predicted among non-blacks MDRD (S/P/Bld) [Vol rate/Area] 63 mL/min/{1.73_m2} >60 [facility] Comment on above: mL/min/1.73m2 CKD-EP I Creatinine Equation (2020) Hematocrit Auto (Bld) [Volum e fraction]Ordered By: Samir Forrest on 08-16-2024 Hematocrit (Bld) [Volume fraction] 39.4 % 37-47 [facility] Hemoglobin measurementOrdere d By: Samir Forrest on 08-16-2024 Hemoglobin (Bld) [Mass/Vol] 13.5 g/dL 12.0-15.0 [facility] L506.1001on 08-16-2024 Vitamin D 25-OH 37.9 ng/mL Normal 30-100 [facility] Comment on above: Order Comment: Order Date: 08/16/24 Order Info: [id number] - LIPID Result Comment: Milagros min D Status Deficiency: <20 ng/mL (50nmol/L) Insufficiency: 20-30 ng/mL (50-75 nmol/L) Sufficiency: 30-100 ng/mL (75-250 nmol/L) Toxicity: >100 ng/mL (>250 nmol/L) Performed By: #### L 506.1001 #### [facility] [address] [place], [place], [address] LDL calc ser/plasOrdered By: Magalys Mcclure on 08-16-2024 Cholesterol in LDL [Mass/Vol] 71 mg/dL [facility] Comment on above: Kpgtmepfyq=188-610 m g/dL & Higher Ysbp=892 mg/dL or greater LDL Cholesterol, Calculated 71 mg/dL [facility] Comment on above: Qondtqbwxe=390-770 m g/dL & Higher Lmvl=687 mg/dL or greater Laboratory - Chemistry and C hemistry - challengeOrdered By: Samir Forrest on 08-16-2024 AST [Catalytic activity/Vol] 24 U/L <32 [facility] Lipid Profileon 08-16-2024 CHOL:HDL 3.31 Normal [facility] Comment on above: Order Comment: Order Date: 08/16/24Order Info: [id number] - LIPID Performed By: #### L 500.4100 ####[facility] [address] [place], [address] Cholesterol [Mass/Vol] 169 mg/dL Normal <=200 [facility] Comment on above: Order Comment: Order Date: 08/16/24Order Info: [id number] - LIPID Result Comment: Chol esterol level, Desirable <200 mg/dL Borderline high cholesterol 200-239 mg/dL High cholesterol >=240 mg/dL Recommendations of the NCEP Adult Treatment Panel for the following risk-cutoff thresholds for the [place] population. Performed By: #### L 500.4100 ####[facility] [address] [place], [address] Cholesterol in HDL [Mass/Vol] 51 mg/dL Normal [facility] Comment on above: Order Comment: Order Date: 08/16/24Order Info: [id number] - LIPID Result Comment: Luli onal Cholesterol Education Program (NCEP) guidelines: <40 mg/dL: Low HDL-cholesterol (major risk factor for CHD) >= 60 mg/dL: High HDL-cholesterol (negative risk factor for CHD) HDL-cholesterol is affected by a number of factors, e.g. smoking, exercise, hormones, sex and age. Performed By: #### L 500.4100 ####[facility] [address] [place], [address] Cholesterol in LDL [Mass/Vol] 71 mg/dL Normal [facility] Comment on above: Order Comment: Order Date: 08/16/24Order Info: [id number] - LIPID Result Comment: Bord mpzchw=801-763 mg/dL Higher Sesy=467 mg/dL or greater Performed By: #### L 500.4100 ####[facility] [address] [place], [address] Cholesterol in VLDL [Mass/Vol] 47 mg/dL High 5-40 [facility] Comment on above: Order Comment: Order Date: 08/16/24Order Info: [id number] - LIPID Performed By: #### L 500.4100 ####[facility] [address] [place], [address] Triglyceride [Mass/Vol] 237 mg/dL High [facility] Comment on above: Order Comment: Order Date: 08/16/24Order Info: [id number] - LIPID Result Comment: The drugs N-Acetylcysteine and Metamizole may falsely depress this assay. Normal range: <150 mg/dL Borderline High: 150-199 mg/dL High: 200-499 mg/dL Very High: >500 mg/dL Performed By: #### L 500.3023 ####[facility] [address] [place], [address] MCV (mean corpuscular volume ) determinationOrdered By: Samir Forrest on 08-16-2024 MCV (RBC) [Entitic vol] 98.0 fL 81-99 [facility] Mean corpuscular hemoglobin (MCH) determinationOrdered By: Samir Forrest on 08-16-2024 MCH (RBC) [Entitic mass] 33.6 pg High 27.0-32.0 [facility] Mean corpuscular hemoglobin concentration (MCHC) determinationOrdered By: Samir Forrest on 08-16-2024 MCHC (RBC) [Mass/Vol] 34.3 g/dL 32-36 [facility] Mean platelet volume determi nationOrdered By: Samir Forrest on 08-16-2024 Platelet mean volume (Bld) [Entitic vol] 8.9 fL 6.2-12.0 [facility] Platelet countOrdered By: Irving Forrest on 08-16-2024 Platelets (Bld) [#/Vol] 299 10*3/uL 150-450 [facility] Potassium (Unsp spec) [Mass/ Vol]Ordered By: Samir Forrest on 08-16-2024 Potassium [Moles/Vol] 3.8 mmol/L 3.3-5.1 [facility] Potassium measurement (mass/ volume)Ordered By: Samir Forrest on 08-16-2024 Potassium (Unsp spec) [Mass/Vol] 3.8 mmol/L 3.3-5.1 [facility] RBC Auto (Bld) [#/Vol]Ordere d By: Samir Forrest on 03-06-2025 RBC (Bld) [#/Vol] 4.02 10*6/uL Low 4.2-5.4 [facility] Screening total cholesterol/ high density lipoprotein (HDL) cholesterol ratioOrdered By: Magalys Mcclure on 08-16-2024 Cholesterol.total/Marcelina sterol in HDL [Mass ratio] 3.31 {ratio} [facility] Serum creatinine measurement (mass/volume)Ordered By: Samir Forrest on 08-16-2024 Creatinine [Mass/Vol] 0.89 mg/dL 0.70-1.20 [facility] Serum globulin measurementOr dered By: Samir Forrest on 08-16-2024 Globulin (S) [Mass/Vol] 2.7 g/dL 2.2-4.2 [facility] Serum glucose measurement (m ass/volume)Ordered By: Samir Forrest on 08-16-2024 Glucose [Mass/Vol] 133 mg/dL High 70-99 [place] Serum or plasma alanine meraz otransferase (ALT) measurementOrdered By: Samir Forrest on 08-16-2024 ALT [Catalytic activity/Vol] 14 U/L <35 [facility] Serum or plasma albumin julius urement (mass/volume)Ordered By: Samir Forrest on 08-16-2024 Albumin [Mass/Vol] 4.3 g/dL 3.4-4.8 [place] Serum or plasma albumin/glob ulin mass ratioOrdered By: Samir Forrest on 08-16-2024 Albumin/Globulin [Mass ratio] 1.6 {ratio} 0.9-2.4 [facility] Serum or plasma alkaline vandana sphatase measurementOrdered By: Samir Forrest on 08-16-2024 ALP [Catalytic activity/Vol] 104 U/L 35-104 [facility] Serum or plasma calcium julius urement (mass/volume)Ordered By: Samir Forrest on 08-16-2024 Calcium [Mass/Vol] 9.9 mg/dL 7.6-11.0 [place] Serum or plasma cholesterol in HDL measurement (mass/volume)Ordered By: Magalys Mcclure on 08-16-2024 Cholesterol in HDL [Mass/Vol] 51 mg/dL >40 [facility] Comment on above: National Cholesterol Education Program (NCEP) guidelines:<40 mg/dL: Low HDL-cholesterol (major risk factor for CHD)>= 60 mg/dL: High HDL-cholesterol (negative risk factor for CHD)HDL-cholesterol is affected by a number of factors, e.g. smoking, exercise, hormones, sex and age. Serum or plasma cholesterol measurement (mass/volume)Ordered By: Magalys Mcclure on 08-16-2024 Cholesterol [Mass/Vol] 169 mg/dL <201 [facility] Comment on above: Cholesterol level, D esirable <200 mg/dLBorderline high cholesterol 200-239 mg/dLHigh cholesterol >=240 mg/dLRecommendations of the NCEP Adult Treatment Panel for the following risk-cutoff thresholds for the [place] population. Serum or plasma creatine kin ase activityOrdered By: Samir Forrest on 08-16-2024 CK [Catalytic activity/Vol] 47 U/L 24-195 [facility] Serum or plasma urea nitroge n measurement (mass/volume)Ordered By: Samir Forrest on 08-16-2024 Urea nitrogen [Mass/Vol] 18 mg/dL 4-19 [facility] Sodium levelOrdered By: Shlomo Forrest on 08-16-2024 Sodium [Moles/Vol] 136 mmol/L 133-145 [place] TSH DL <= 0.005 mIU/L QnOrde red By: Samir Forrest on 08-16-2024 Thyroid Stimulating Hormone (TSH) 1.950 uIU/mL 0.300-4.200 [facility] TSH Qn 1.950 uIU/mL 0.300-4.200 [facility] Thyroid Stim Hormone (TSH)on 08-16-2024 TSH 1.950 uIU/mL Normal 0.300-4.200 [facility] Comment on above: Performed By: #### L 100.3780, L501.6540, L501.9520, L500.0010 ####[facility] [address] [place], [place], [id number] Total proteinOrdered By: lAexandra Forrest on 08-16-2024 Protein [Mass/Vol] 7.1 g/dL 5.9-8.4 [place] Triglycerides measurementOrd ered By: Magalys Mcclure on 08-16-2024 Triglyceride [Mass/Vol] 237 mg/dL High <199 [facility] Comment on above: The drugs N-Acetylcy steine and Metamizole may falsely depress this assay. Normal range: <150 mg/dLBorderline High: 150-199 mg/dLHigh: 200-499 mg/dLVery High: >500 mg/dL Vitamin D, 25-hydroxyOrdered By: Magalys Mcclure on 08-16-2024 Vitamin D 25-Hydroxy 37.9 ng/mL 30-100 [facility] Comment on above: Vitamin D StatusDefi ciency: <20 ng/mL (50nmol/L)Insufficiency: 20-30 ng/mL (50-75 nmol/L)Sufficiency: 30-100 ng/mL (75-250 nmol/L)Toxicity: >100 ng/mL (>250 nmol/L) White blood cell (WBC) count Ordered By: Samir Forrest on 08-16-2024 WBC (Bld) [#/Vol] 4.1 10*3/uL Low 4.4-11.0 [place] Cardiology Visit Reporton Cardiology Visit Report [facility] [address] [place] [address]. [address] [place] [address] OFFICE VISIT Date of Service: 07/10/24 MR#: [id number] Acct: [id number] Name: KATRINA MANCINI Rep #: [id number] : 1940 Provider: Dr. 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 Normal [facility] HIP, UNI W/ Pelvis 2-3 Views on 05-31-2024 HIP, UNI W/ Pelvis 2-3 Views [facility] [address] [place] [address] HIP, UNI W/ Pelvis 2-3 Views MR#: [id number] Acct: [id number] Name: KATRINA MANCINI Rep #: [id number] : 1940 F 83 From: London Patterson DO PCP: Dr. Magalys Mcclure MD Status: DEP AMB Study: HIP, UNI W/ Pelvis 2-3 Views Date of Exam: Exam# [id number] Ordering Dr: Ned Chiu MD [id number] INDICATION: pain EXAMINATION/TECHNIQUE: X-RAY - XR Hip [...] 21:01 EST Reading Location ID and State: [facility] / [place] Tel [phone], Service support , CC: Dr. Ned Chiu MD; Dr. Magalys Mcclure MD Consulting Psychologist: Signed Normal [facility] L/S Spine Min 4 Viewson 05-13 L/S Spine Min 4 Views [facility] [address] [place] [address] L/S Spine Min 4 Views MR#: [id number] Acct: [id number] Name: KATRINA MANCINI Rep #: [id number] : 1940 F 83 From: London Patterson DO PCP: Dr. Magalys Mcclure MD Status: DEP AMB Study: L/S Spine Min 4 Views Date of Exam: 05/31/24 Exam# [id number] Ordering Dr: Nicolette Mcmillan [id number] STUDY: X-RAY - LUMBAR SPINE REASON FOR [...] 21:08 EST Reading Location ID and State: [address] [place] [address] Tel [phone], Service support , CC: MONA Rosas; Dr. Magalys Mcclure MD Consulting Psychologist: Signed Normal [facility] Orthopedic Visit Reporton Orthopedic Visit Report [facility] [address] [place] [address] OFFICE VISIT Date of Service: 05/31/24 MR#: [id number] Acct: [id number] Name: KATRINA MANCINI Rep #: [id number] : 1940 Provider: Dr. Ned Chiu MD Age/Sex: 83/F Location: [facility] Status: Signed Intake Vital Signs 04/03/24 15:06 [...] PO QHS 01/15/22 05/31/24 History capsule,extended release [id number] acetaminophen 325 mg tablet 650 mg PO [...] you fallen in the past year?: Yes [facility] Medical History (Updated 06/01/24 @ 08:14 by [...] by me, Dr. Ned Chiu MD 05/31/24 5172. Part of today???s visit was documented by [ ], acting as scribe. KATRINA MANCINI is a 83 year old F here today for low back pain. She notes that she has had pain about a year and a half. She denies any injury. Patient had lumbar spine surgery for a laminectomy in 1991 in [place]. She complains of pain from her lumbar spine into her left leg, stopping at her knee. She notes that right now most of her pain it in her right buttock from a recent fall, 2 days ago, falling into a sandstone block. She also has had bilateral total hip, and revision of total hip. She denies any n (more content not included)... Normal [facility] Aides Teacher Office Visit Reporton 05-24-2024 Public Health Aides Teacher Office Visit Report [facility] [address], [address] [place] [address] OFFICE VISIT Date of Service: 05/24/24 MR#: [id number] Acct: [id number] Name: KATRINA MANCINI Rep #: [id number] : 1940 Provider: Dr. 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 still having hot flashes discussed relizen samples given Last PAP: 10/ (more content not included)... Normal [facility] Hips B/L min 2 views w/ Pelv edilson 05-15-2024 Hips B/L min 2 views w/ Pelvis [facility] Imaging Services [address] [place], [place] [address] Hips B/L min 2 views w/ Pelvis MR#: [id number] Acct: [id number] Name: KATRINA MANCINI Rep #: [id number] : 1940 F 83 From: Bharat Greene MD PCP: Dr. Magalys Mcclure MD Status: REG CLI Study: Hips B/L min 2 views w/ Pelvis Date of Exam: 07/16/23 Exam# [id number] Ordering Dr: Magalys Mcclure MD [id number] INDICATION: pain EXAMINATION/TECHNIQUE: X-RAY - XR Hips [...] Signed: Nii Greene MD at 18:40 EST Reading Location ID and State: [address] [place] [address] , Service support , CC: Dr. Magalys Mcclure MD Consulting Psychologist: Signed Normal [facility] Knee 3 Viewson 05-15-2024 Knee 3 Views [facility] Services [address] [place] [address] Knee 3 Views MR#: [id number] Acct: [id number] Name: KATRINA MANCINI Rep #: [id number] : 1940 F 83 From: Farhad Hooker MD PCP: Dr. Magalys Mcclure MD Status: REG [facility] Study: Knee 3 Views Date of Exam: 05/15/24 Exam# [id number] Ordering Dr: Magalys Mcclure MD [id number] EXAM: XR Knee 3 Views INDICATION: Female, [...] EST , CC: Dr. Magalys Mcclure MD Consulting Psychologist: Signed Normal [facility] Knee 3 Views [facility] [address] [place] [address] Knee 3 Views MR#: [id number] Acct: [id number] Name: KATRINA MANCINI Rep #: [id number] : 1940 F 83 From: Farhad Hooker MD PCP: Dr. Magalys Mcclure MD Status: REG [facility] Study: Knee 3 Views Date of Exam: 05/15/24 Exam# [id number] Ordering Dr: Magalys Mcclure MD [id number] EXAM: XR Knee 3 Views INDICATION: Female, [...] EST , CC: Dr. Magalys Mcclure MD Consulting Psychologist: Signed Normal [facility] Basic Metabolic Profile (BMP )on 04-27-2024 BUN/CRE 20.4 RATIO High 10-20 [facility] Comment on above: Order Comment: Order Date: 04/27/24 Order Info: 0667- - BMP Performed By: #### L 500.2500 #### [facility] [address] [place], [address] CA,Total 9.3 mg/dL Normal 8.5-10.1 [facility] Comment on above: Order Comment: Order Date: 04/27/24 Order Info: 0667- - BMP Performed By: #### L 500.2500 #### [facility] [address] [place], [address] Chloride [Moles/Vol] 99 mmol/L Normal 98-107 [facility] Comment on above: Order Comment: Order Date: 04/27/24 Order Info: 0667 - BMP Performed By: #### L 500.2500 #### [facility] [address] [place], [address] CO2 [Moles/Vol] 30.0 mmol/L Normal 21.0-32.0 [facility] Comment on above: Order Comment: Order Date: 04/27/24 Order Info: 0667- - BMP Performed By: #### L 500.2500 #### [facility] [address] [place], [address] Creatinine [Mass/Vol] 0.88 mg/dL Normal 0.55-1.02 [facility] Comment on above: Order Comment: Order Date: 04/27/24 Order Info: 0667- - BMP Result Comment: The validity of the calculated GFR GFRAA in patients over 70 years has not been determined. Clinical correlation is essential. Performed By: #### L 500.2500 #### [facility] [address] [place], [address] EST GFR - AA 78 mL/min Normal >60 [facility] Comment on above: Order Comment: Order Date: 04/27/24 Order Info: 0667- - BMP Result Comment: Afri can Greek GFR Calc Performed By: #### L 500.2500 #### [facility] [address] [place], [address] GAP 5 Normal 5-15 [facility] Comment on above: Order Comment: Order Date: 04/27/24 Order Info: 06- - BMP Performed By: #### L 500.2500 #### [facility] [address] [place], [address] GFR/1.73 sq M.predicted among non-blacks MDRD (S/P/Bld) [Vol rate/Area] 65 mL/min/{1.73_m2} Normal >60 [facility] Comment on above: Order Comment: Order Date: 04/27/24 Order Info: 06- - BMP Result Comment: Non- GFR Calc Performed By: #### L 500.2500 #### [facility] [address] [place], [address] Glucose [Mass/Vol] 114 mg/dL High 74-106 [place] Comment on above: Order Comment: Order Date: 04/27/24 Order Info: 0667- - BMP Result Comment: Fast ing Glucose result from 100 to 125 mg/dL suggests IMPAIRED HOMEOSTASIS per A.D.A. criteria. Performed By: #### L 500.2500 #### [facility] [address] [place], [address] Potassium [Moles/Vol] 4.2 mmol/L Normal 3.5-5.1 [facility] Comment on above: Order Comment: Order Date: 04/27/24 Order Info: 0667- - BMP Performed By: #### L 500.2500 #### [facility] [address] [place], [place], [address] Sodium [Moles/Vol] 134 mmol/L Low 136-145 [place] Comment on above: Order Comment: Order Date: 04/27/24 Order Info: 0667-1 - BMP Performed By: #### L 500.2500 #### [facility] [address] [place], [place], [address] Urea nitrogen [Mass/Vol] 18 mg/dL Normal 7-18 [facility] Comment on above: Order Comment: Order Date: 04/27/24 Order Info: 0667-1 - BMP Performed By: #### L 500.2500 #### [facility] [address] [place], [place], [address] Spine Lumbar (Routine)on Spine Lumbar (Routine) [facility] Services [address] [place], [place] [address] Spine Lumbar (Routine) MR#: [id number] Acct: [id number] Name: KATRINA MANCINI Rep #: [id number] : 1940 F 83 From: Kimberly marie MD PCP: Dr. Magalys Mcclure MD Status: [facility] Study: Spine Lumbar (Routine) Date of Exam: 04/11/24 Exam# [id number] Ordering Dr: Aldo Beavers MD [id number] HISTORY: POST LAMINECTOMY SYNDROME, pain radiates into [...] 10:09 EDT Reading Location ID and State: [facility] / [place] Tel , Service support , CC: Dr. Aldo Beavers MD; Dr. Magalys Mcclure MD Consulting Psychologist: Signed Normal [facility] PAP IG HPV APTIMA 16/18,45on 04-10-2024 ADEQ Comment Normal . [facility] Comment on above: Order Comment: Speci men Comment: [id number] Specimen Comment: Source.............Cervix;Endocervix Specimen Comment: Other..............Post Menopausal Specimen Comment: No. of containers..01 ThinPrep Vial Result Comment: Sati sfactory for evaluation. Endocervical and/or squamous metaplastic cells (endocervical component) are present. Performed By: #### L 7400.0280 #### [facility] [address] [place], [address] COMM . Normal . [facility] Comment on above: Order Comment: Speci men Comment: [id number] Specimen Comment: Source.............Cervix;Endocervix Specimen Comment: Other..............Post Menopausal Specimen Comment: No. of containers..01 ThinPrep Vial Performed By: #### L 7400.0280 #### [facility] [address] [place], [address] COMMENT Comment Normal . [facility] Comment on above: Order Comment: Speci men Comment: [id number] Specimen Comment: Source.............Cervix;Endocervix Specimen Comment: Other..............Post Menopausal Specimen Comment: No. of containers..01 ThinPrep Vial Result Comment: This liquid based ThinPrep(R) pap test was screened with the use of an image guided system. Performed By: #### L 7400.0280 #### [facility] [address] [place], [place], [address] DIAG Comment Normal . [facility] Comment on above: Order Comment: Speci men Comment: [id number] Specimen Comment: Source.............Cervix;Endocervix Specimen Comment: Other..............Post Menopausal Specimen Comment: No. of containers..01 ThinPrep Vial Result Comment: NEGA TIVE FOR INTRAEPITHELIAL LESION OR MALIGNANCY. CELLULAR CHANGES ASSOCIATED WITH INFLAMMATION ARE PRESENT. Performed By: #### L 7400.0280 #### [facility] [address] [place], [address] HPV APTIMA, HR Negative Normal Negative [facility] Comment on above: Order Comment: Speci men Comment: [id number] Specimen Comment: Source.............Cervix;Endocervix Specimen Comment: Other..............Post Menopausal Specimen Comment: No. of containers..01 ThinPrep Vial Result Comment: This nucleic acid amplification test detects fourteen high- risk HPV types (16,18,31,33,35,39,45,51,52,56,58,59,66,68) without differentiation. Performed By: #### L 7400.0280 #### [facility] [address] [place], [address] HPV Richelle Rfx Comment Normal . [facility] Comment on above: Order Comment: Speci men Comment: [id number] Specimen Comment: Source.............Cervix;Endocervix Specimen Comment: Other..............Post Menopausal Specimen Comment: No. of containers..01 ThinPrep Vial Result Comment: Crit eria not met, HPV Genotype not performed. Performed at: - [facility] [id number] Kiln Feeder: Jenny Kenyon MD, Phone: [phone] Performed at: = - [facility] [id number] Kiln Feeder: Jenny Kenyon MD, Phone: [phone] Performed By: #### L 7400.0280 #### [facility] [address] [place], [address] PAPSMR Comment Normal . [facility] Comment on above: Order Comment: Speci men Comment: [id number] Specimen Comment: Source.............Cervix;Endocervix Specimen Comment: Other..............Post Menopausal [...] occur. Performed By: #### L 7400.0280 #### [facility] [address] [place], [address] PERFORM Comment Normal . [facility] Comment on above: Order Comment: Speci men Comment: [id number] Specimen Comment: Source.............Cervix;Endocervix Specimen Comment: Other..............Post Menopausal Specimen Comment: No. of containers..01 ThinPrep Vial Result Comment: Inés Arita Audio Visual Aide (ASCP) Performed By: #### L 7400.0280 #### [facility] [address] [place], [address] Public Health Aides Teacher Office Visit Reporton 04-03-2024 Public Health Aides Teacher Office Visit Report [facility] [address], [address] [place] [address] OFFICE VISIT Date of Service: 04/03/24 MR#: [id number] Acct: [id number] Name: KATRINA MANCINI Rep #: [id number] : 1940 Provider: Dr. 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 Normal [facility] Surgery Specimen Level Adrian 04-03-2024 Surgery Specimen Level IV ---- Patient Age/Sex Location Account Attending Physician ---- KATRINA MANCINI 83/F [facility] [id number] Dr. Taryn Lee MD ---- Specimen: [id number] Received: 04/03/24 Status: JUAN M Menezes Num: [id number] Spec Type: ENDOM BX/C Subm Dr: Dr. Taryn Lee MD HEADER OPERATION: Endometrial biopsy PRE-OP DIAGNOSIS: Endometrial hyperplasia TISSUE SUBMITTED: Endometrial tissue ---- MICROSCOPIC DIAGNOSIS Endometrial biopsy: Scant strips of benign endometrial epithelium. Scant fragments of benign ecto- and endocervical epithelium and mucous. See comment. 04/05/2024 COMMENT The specimen predominantly consists of [...] totally submitted in one cassette. 04/04/2024 TC:4 CPT:14991 ---- Patient Age/Sex Location Account Attending Physician ---- KATRINA MANCINI 83/F [facility] [id number] Dr. Taryn Lee MD ---- Signed (signature on file) Dr. Ward Harrell MD 04/05/24 1328 ---- Normal [facility] Comment on above: Performed By: #### P SUIV ####[facility] [address] [place], [address] Basic Metabolic Profile (BMP )on 03-05-2024 BUN/CRE 18.4 RATIO Normal 10-20 [facility] Comment on above: Performed By: #### L 500.2500 #### [facility] [address] [place], [address] CA,Total 9.9 mg/dL Normal 8.5-10.1 [facility] Comment on above: Performed By: #### L 500.2500 #### [facility] [address] [place], [address] Chloride [Moles/Vol] 99 mmol/L Normal 98-107 [facility] Comment on above: Performed By: #### L 500.2500 #### [facility] [address] [place], [address] CO2 [Moles/Vol] 31.0 mmol/L Normal 21.0-32.0 [facility] Comment on above: Performed By: #### L 500.2500 #### [facility] [address] [place], [address] Creatinine [Mass/Vol] 0.93 mg/dL Normal 0.55-1.02 [facility] Comment on above: Result Comment: The validity of the calculated GFR GFRAA in patients over 70 years has not been determined. Clinical correlation is essential. Performed By: #### L 500.2500 #### [facility] [address] [place], [address] EST GFR - AA 74 mL/min Normal >60 [facility] Comment on above: Result Comment: Afri can Greek GFR Calc Performed By: #### L 500.2500 #### [facility] [address] [place], [address] GAP 4 Low 5-15 [facility] Comment on above: Performed By: #### L 500.2500 #### [facility] [address] [place], [address] GFR/1.73 sq M.predicted among non-blacks MDRD (S/P/Bld) [Vol rate/Area] 61 mL/min/{1.73_m2} Normal >60 [facility] Comment on above: Result Comment: Non- GFR Calc Performed By: #### L 500.2500 #### [facility] [address] [place], [address] Glucose [Mass/Vol] 126 mg/dL High 74-106 [place] Comment on above: Result Comment: Fast ing Glucose result greater than or equal to 126 mg/dL suggests DIABETES MELLITUS per A.D.A. criteria. Performed By: #### L 500.2500 #### [facility] [address] [place], [address] Potassium [Moles/Vol] 3.9 mmol/L Normal 3.5-5.1 [facility] Comment on above: Performed By: #### L 500.2500 #### [facility] [address] [place], [address] Sodium [Moles/Vol] 134 mmol/L Low 136-145 [place] Comment on above: Performed By: #### L 500.2500 #### [facility] [address] [place], [address] Urea nitrogen [Mass/Vol] 17 mg/dL Normal 7-18 [facility] Comment on above: Performed By: #### L 500.2500 #### [facility] [address] [place], [address] carBAMazepine free SerPl-mCn con 03-05-2024 carBAMazepine free [Mass/Vol] 2.4 ug/mL Normal 0.8-2.4 [facility] Comment on above: Order Comment: Speci jon Type: BLOOD SPECIMEN Ordering Facility: [facility] Address: [address] [place] [address] Result Comment: Refe rence ranges and high/low indicator flags are provided as general guidelines only. The treating physician must determine appropriate target levels/dosing based on the specific clinical situation. This test was developed, and its performance characteristics determined by the [facility] Department of Pathology and Laboratory Medicine. It has not been cleared or approved by the FDA. The [facility] Department of Pathology and Laboratory Medicine is regulated under CLIA as qualified to perform high-complexity testing. This test is used for clinical purposes. It should not be regarded as investigational or for research. Performed By: #### 3 433-0 #### [facility] CLIA [id number] [address] [place], [place] [address] [address] [facility] CNOVon 03-02-2024 [facility] Office Visit (DESHWAN ) KATRINA MANCINI ([id number]) 1940 F Date Time Provider Department 03/02/24 3:20 PM AB SHAFFER JR During your visit today, we recorded the following information about you: Pulse Blood pressure Weight 61/minute 124/71 58.6 kg Ab Shaffer Jr., MD 03/02/2024 6:36 PM Signed ESTABLISHED PATIENT VISIT CHIEF COMPLAINT: Follow Up HISTORY OF PRESENT ILLNESS: Katrina Trinidad Addis is a 83 year old female, BMI [...] progesterone ingrid (more content not included)... Normal [facility] Basic Metabolic Profile (BMP )on 02-24-2024 BUN/CRE 20.9 RATIO High 10-20 [facility] Comment on above: Order Comment: Order Date: 02/17/24 Order Info: 666-06 - BMP Performed By: #### L 500.2500 #### [facility] [address] [place], [address] CA,Total 9.3 mg/dL Normal 8.5-10.1 [facility] Comment on above: Order Comment: Order Date: 02/17/24 Order Info: 666-06 - BMP Performed By: #### L [id number] #### [facility] [address] [place], [address] Chloride [Moles/Vol] 97 mmol/L Low 98-107 [facility] Comment on above: Order Comment: Order Date: 02/17/24 Order Info: 666-06 - BMP Performed By: #### L [id number] #### [facility] [address] [place], [address] CO2 [Moles/Vol] 29.0 mmol/L Normal 21.0-32.0 [facility] Comment on above: Order Comment: Order Date: 02/17/24 Order Info: 666-06 - BMP Performed By: #### L [id number] #### [facility] [address] [place], [address] Creatinine [Mass/Vol] 0.81 mg/dL Normal 0.55-1.02 [facility] Comment on above: Order Comment: Order Date: 02/17/24 Order Info: 666- - BMP Result Comment: The validity of the calculated GFR GFRAA in patients over 70 years has not been determined. Clinical correlation is essential. Performed By: #### L [id number] #### [facility] [address] [place], [address] EST GFR - AA 86 mL/min Normal >60 [facility] Comment on above: Order Comment: Order Date: 02/17/24 Order Info: 666-06 - BMP Result Comment: Afri can Greek GFR Calc Performed By: #### L [id number] #### [facility] [address] [place], [address] GAP 6 Normal 5-15 [facility] Comment on above: Order Comment: Order Date: 02/17/24 Order Info: 666-06 - BMP Performed By: #### L [id number] #### [facility] [address] [place], [address] GFR/1.73 sq M.predicted among non-blacks MDRD (S/P/Bld) [Vol rate/Area] 71 mL/min/{1.73_m2} Normal >60 [facility] Comment on above: Order Comment: Order Date: 02/17/24 Order Info: 666-06 - BMP Result Comment: Non- GFR Calc Performed By: #### L 500.2500 #### [facility] [address] [place], [address] Glucose [Mass/Vol] 89 mg/dL Normal 74-106 [place] Comment on above: Order Comment: Order Date: 02/17/24 Order Info: 666-06 - BMP Performed By: #### L [id number] #### [facility] [address] [place], [address] Potassium [Moles/Vol] 4.0 mmol/L Normal 3.5-5.1 [facility] Comment on above: Order Comment: Order Date: 02/17/24 Order Info: 666-06 - BMP Performed By: #### L [id number] #### [facility] [address] [place], [address] Sodium [Moles/Vol] 132 mmol/L Low 136-145 [place] Comment on above: Order Comment: Order Date: 02/17/24 Order Info: 0667-1 - BMP Performed By: #### L [id number] #### [facility] [address] [place], [place], [address] Urea nitrogen [Mass/Vol] 17 mg/dL Normal 7-18 [facility] Comment on above: Order Comment: Order Date: 02/17/24 Order Info: 0667-1 - BMP Performed By: #### L [id number] #### [facility] [address] [place] [place], [address] Absolute lymphocyte countOrd ered By: Magalys Mcclure on 07-22-2023 Lymphocytes Auto (Unsp spec) [#/Vol] 1.31 10*3/uL 0.83-4.51 [facility] Automated lymphocyte count a s percentage of total leukocytesOrdered By: Magalys Mcclure on 07-22-2023 Lymphocytes/100 WBC Auto (Unsp spec) 17.9 % 19-41 [facility] Basophil percentageOrdered B y: Magalys Mcclure on 07-22-2023 Basophils/100 WBC (Bld) 0.7 % 0-1 [facility] Bilirubin [Mass/Vol] 0.30 mg/dL 0.20-1.00 [facility] Comment on above: For patients on eltr ombopag therapy, use of Dimension [place] TBIL is not recommended. Chloride [Moles/Vol] 103 mmol/L 98-107 [facility] Cholesterol [Mass/Vol] 190 mg/dL <200 [facility] Comment on above: <200 mg/dL Desirable 200-240 mg/dL Borderline >240 mg/dL High Risk Eosinophils/100 WBC (Bld) 1.5 % 0-5 [facility] Glucose [Mass/Vol] 92 mg/dL 74-106 [place] Hemoglobin (Bld) [Mass/Vol] 13.9 g/dL 12.0-15.0 [facility] Monocytes/100 WBC (Bld) 9.4 % 0-10 [facility] Neutrophils (Bld) [#/Vol] 5.1 10*3/uL 2.0-7.7 [facility] Neutrophils/100 WBC (Bld) 69.7 % 47-70 [facility] Potassium [Moles/Vol] 4.2 mmol/L 3.5-5.1 [facility] Protein [Mass/Vol] 7.6 g/dL 6.4-8.2 [place] Sodium [Moles/Vol] 138 mmol/L 136-145 [place] Triglyceride [Mass/Vol] 232 mg/dL <199 [facility] Comment on above: The drugs N-Acetylcy steine and Metamizole may falsely depress this assay.Serum Triglycerides Reference Interval Normal <150 mg/dL Borderline high 150 - 199 mg/dL High 200 - 499 mg/dL Very High > or = 500 mg/dL WBC (Bld) [#/Vol] 7.3 10*3/uL 4.4-11.0 [place] Determination of erythrocyte mean corpuscular volume (MCV)Ordered By: Magalys Mcclure on 07-22-2023 MCV (RBC) [Entitic vol] 102.5 fL 81-99 [facility] Erythrocyte distribution wid th ratioOrdered By: Magalys Mcclure on 07-22-2023 Erythrocyte distribution width (RBC) [Ratio] 11.4 % 11.6-14.6 [facility] Erythrocyte distribution wid th standard deviationOrdered By: Magalys Mcclure on 07-22-2023 Erythrocyte distribution width (RBC) [Entitic vol] 43.4 fL 35.1-43.9 [facility] Hematocrit Auto (Bld) [Volum e fraction]Ordered By: Magalys Mcclure on 07-22-2023 Hematocrit (Bld) [Volume fraction] 41.3 % 37-47 [facility] Immature granulocytes/100 WB C Auto (Bld)Ordered By: Magalys Mcclure on 07-22-2023 Immature granulocytes/100 WBC (Bld) 0.800 % 0.0-0.9 [facility] Comment on above: IG% - Immature Granu locytes (promyelocytes, myelocytes and metamyelocytes) > 1% indicates that a LEFT SHIFT is Present. Laboratory - Chemistry and C hemistry - challengeOrdered By: Magalys Mcclure on 07-22-2023 Albumin/Globulin [Mass ratio] 1.2 {ratio} 0.9-2.4 [facility] ALP [Catalytic activity/Vol] 88 U/L 45-117 [facility] ALT [Catalytic activity/Vol] 40 U/L 13-56 [facility] Cholesterol in HDL [Mass/Vol] 58 mg/dL >40 [facility] Comment on above: The drugs N-Acetylcy steine and Metamizole may falsely depress this assay. Reference Range HDL <40 mg/dL Low HDL Cholesterol HDL >or= 60 mg/dL High HDL Cholesterol Cholesterol in LDL [Mass/Vol] 86 mg/dL 0-130 [facility] CO2 [Moles/Vol] 31.0 mmol/L 21.0-32.0 [facility] Globulin (S) [Mass/Vol] 3.5 g/dL 2.2-4.2 [facility] Urea nitrogen/Creatinine [Mass ratio] 32.1 mg/mg 10-20 [facility] - Hematology and Cell countsOrdered By: Magalys Mcclure on 07-22-2023 MCH (RBC) [Entitic mass] 34.5 pg 27.0-32.0 [facility] MCHC (RBC) [Mass/Vol] 33.7 g/dL 32-36 [facility] Nucleated RBC/100 WBC (Bld) [Ratio] 0 % 0-5 [facility] Platelet mean volume (Bld) [Entitic vol] 9.1 fL 6.2-12.0 [facility] Platelets (Bld) [#/Vol] 335 10*3/uL 150-450 [facility] No Panel InformationOrdered By: Magalys Mcclure on 07-22-2023 Estimated GFR (MDRD) Amer 83 mL/min >60 [facility] Comment on above: GFR Calc Estimated GFR (MDRD) Non-Af Amer 68 mL/min >60 [facility] Comment on above: Non- GFR Calc Vitamin D 25-Hydroxy 32.4 ng/mL [facility] Comment on above: Vitamin D 25(OH) Sta tus Range Deficiency <20 ng/mL (50nmol/L) Insufficiency 20 - 30 ng/mL (50 - 75 nmol/L) Sufficiency 30 - 100 ng/mL (75 - 250 nmol/L) Toxicity >100 ng/mL (>250 nmol/L) VLDL Cholesterol 46 mg/dL 5-40 [facility] RBC Auto (Bld) [#/Vol]Ordere d By: Magalys Mcclure on 07-22-2023 RBC (Bld) [#/Vol] 4.03 10*6/uL 4.2-5.4 [facility] Serum or plasma calcium julius urement (mass/volume)Ordered By: Magalys Mcclure on 07-22-2023 Calcium [Mass/Vol] 9.6 mg/dL 8.5-10.1 [place] Serum or plasma creatinine m easurement (mass/volume)Ordered By: Magalys Mcclure on 07-22-2023 Creatinine [Mass/Vol] 0.84 mg/dL 0.55-1.02 [facility] Comment on above: The validity of the calculated GFR & GFRAA in patients over 70 years has not been determined. Clinical correlation is essential. Serum or plasma urea nitroge n measurement (mass/volume)Ordered By: Magalys Mcclure on 07-22-2023 Urea nitrogen [Mass/Vol] 27 mg/dL 7-18 [facility] Thin prep Papanicolaou smear with manual screeningOrdered By: Magalys Mcclure on 07-22-2023 Thin prep Papanicolaou smear with manual screening 4.1 g/dL 3.2-5.0 [facility] Thin prep Papanicolaou smear with manual screening 19 U/L 15-37 [facility] Thin prep Papanicolaou smear with manual screening 4 5-15 [facility] Basophil percentageOrdered B y: Brittany Rogers on 06-23-2023 Basophil percentage 3.8 mg/dL 2.5-4.9 [facility] Chloride [Moles/Vol] 100 mmol/L 98-107 [facility] Glucose [Mass/Vol] 102 mg/dL 74-106 [place] Comment on above: Fasting Glucose resu lt from 100 to 125 mg/dL suggests IMPAIRED HOMEOSTASIS per A.D.A. criteria. Potassium [Moles/Vol] 4.2 mmol/L 3.5-5.1 [facility] Sodium [Moles/Vol] 134 mmol/L 136-145 [place] [facility] - Chemistry and C hemistry - challengeOrdered By: Brittany Rogers on 06-23-2023 CO2 [Moles/Vol] 29.0 mmol/L 21.0-32.0 [facility] Urea nitrogen/Creatinine [Mass ratio] 22.4 mg/mg 10-20 [facility] No Panel InformationOrdered By: Brittany Rogers on 06-23-2023 Estimated GFR (MDRD) Amer 87 mL/min >60 [facility] Comment on above: GFR Calc Estimated GFR (MDRD) Non-Af Amer 72 mL/min >60 [facility] Comment on above: Non- GFR Calc Serum or plasma albumin julius urement (mass/volume)Ordered By: Brittany Rogers on 06-23-2023 Albumin [Mass/Vol] 4.0 g/dL 3.2-5.0 [place] Serum or plasma calcium julius urement (mass/volume)Ordered By: Brittany Rogers on 06-23-2023 Calcium [Mass/Vol] 9.1 mg/dL 8.5-10.1 [place] Serum or plasma creatinine m easurement (mass/volume)Ordered By: Brittany Rogers on 06-23-2023 Creatinine [Mass/Vol] 0.80 mg/dL 0.55-1.02 [facility] Comment on above: The validity of the calculated GFR & GFRAA in patients over 70 years has not been determined. Clinical correlation is essential. Serum or plasma urea nitroge n measurement (mass/volume)Ordered By: Brittany Rogers on 06-23-2023 Urea nitrogen [Mass/Vol] 18 mg/dL 7-18 [facility] - Chemistry and C hemistry - challengeOrdered By: Brittany Rogers on 04-21-2023 Sodium (U) [Moles/Vol] 103 mmol/L Not Establ. [facility] Urine osmolality measurement Ordered By: Brittany Rogers on 04-21-2023 Osmolality (U) [Osmolality] 625 mOsm/KG >50 [facility] Comment on above: Normal Urine Referen ce Ranges Random: 50 - 1200 mOsm/kg H20 depending on fluid intake Random: >850 mOsm/kg after 12 hour fluid restriction 24 hour: ~300 - 900 mOsm/kg H2O Basophil percentageOrdered B y: Magalys Mcclure on 04-14-2023 Chloride [Moles/Vol] 95 mmol/L 98-107 [facility] Glucose [Mass/Vol] 98 mg/dL 74-106 [place] Potassium [Moles/Vol] 4.0 mmol/L 3.5-5.1 [facility] Sodium [Moles/Vol] 131 mmol/L 136-145 [place] [facility] - Chemistry and C hemistry - challengeOrdered By: Magalys Mcclure on 04-14-2023 CO2 [Moles/Vol] 29.0 mmol/L 21.0-32.0 [facility] Urea nitrogen/Creatinine [Mass ratio] 20.9 mg/mg 10-20 [facility] No Panel InformationOrdered By: Magalys Mcclure on 04-14-2023 Estimated GFR (MDRD) Amer 92 mL/min >60 [facility] Comment on above: GFR Calc Estimated GFR (MDRD) Non-Af Amer 76 mL/min >60 [facility] Comment on above: Non- GFR Calc No Panel InformationOrdered By: Samir Forrest on 04-14-2023 Thyroid Stimulating Hormone (TSH) 2.23 uIU/mL 0.358-3.74 [facility] Serum or plasma calcium julius urement (mass/volume)Ordered By: Magalys Mcclure on 04-14-2023 Calcium [Mass/Vol] 9.3 mg/dL 8.5-10.1 [place] Serum or plasma creatinine m easurement (mass/volume)Ordered By: Magalys Mcclure on 04-14-2023 Creatinine [Mass/Vol] 0.77 mg/dL 0.55-1.02 [facility] Comment on above: The validity of the calculated GFR & GFRAA in patients over 70 years has not been determined. Clinical correlation is essential. Serum or plasma urea nitroge n measurement (mass/volume)Ordered By: Magalys Mcclure on 04-14-2023 Urea nitrogen [Mass/Vol] 16 mg/dL 7-18 [facility] Thin prep Papanicolaou smear with manual screeningOrdered By: Magalys Mcclure on 04-14-2023 Thin prep Papanicolaou smear with manual screening 7 10-25 [facility] Basophil percentageOrdered B y: Magalys Mcclure on 04-01-2023 Chloride [Moles/Vol] 100 mmol/L 98-107 [facility] Glucose [Mass/Vol] 97 mg/dL 74-106 [place] Potassium [Moles/Vol] 4.1 mmol/L 3.5-5.1 [facility] Sodium [Moles/Vol] 134 mmol/L 136-145 [place] [facility] - Chemistry and C hemistry - challengeOrdered By: Magalys Mcclure on 04-01-2023 CO2 [Moles/Vol] 30.0 mmol/L 21.0-32.0 [facility] Urea nitrogen/Creatinine [Mass ratio] 22.3 mg/mg 04-01 [facility] No Panel InformationOrdered By: Magalys Mcclure on 04-01-2023 Estimated GFR (MDRD) Amer 100 mL/min >60 [facility] Comment on above: GFR Calc Estimated GFR (MDRD) Non-Af Amer 82 mL/min >60 [facility] Comment on above: Non- GFR Calc Serum or plasma calcium julius urement (mass/volume)Ordered By: Magalys Mcclure on 04-01-2023 Calcium [Mass/Vol] 9.1 mg/dL 8.5-10.1 [place] Serum or plasma creatinine m easurement (mass/volume)Ordered By: Magalys Mcclure on 04-01-2023 Creatinine [Mass/Vol] 0.72 mg/dL 0.55-1.02 [facility] Comment on above: The validity of the calculated GFR & GFRAA in patients over 70 years has not been determined. Clinical correlation is essential. Serum or plasma urea nitroge n measurement (mass/volume)Ordered By: Magalys Mcclure on 04-01-2023 Urea nitrogen [Mass/Vol] 16 mg/dL 7-18 [facility] Thin prep Papanicolaou smear with manual screeningOrdered By: Magalys Mcclure on 04-01-2023 Thin prep Papanicolaou smear with manual screening 4 -15 [facility] Basophil percentageOrdered B y: Magalys Mcclure on 03-03-2023 Chloride [Moles/Vol] 97 mmol/L 98-107 [facility] Glucose [Mass/Vol] 83 mg/dL 74-106 [place] Potassium [Moles/Vol] 3.7 mmol/L 3.5-5.1 [facility] Sodium [Moles/Vol] 130 mmol/L 136-145 [place] [facility] - Chemistry and C hemistry - challengeOrdered By: Magalys Mcclure on 03-03-2023 CO2 [Moles/Vol] 27.0 mmol/L 21.0-32.0 [facility] Urea nitrogen/Creatinine [Mass ratio] 12.8 mg/mg 10-20 [facility] No Panel InformationOrdered By: Magalys Mcclure on 03-03-2023 Estimated GFR (MDRD) Amer 117 mL/min >60 [facility] Comment on above: GFR Calc Estimated GFR (MDRD) Non-Af Amer 96 mL/min >60 [facility] Comment on above: Non- GFR Calc No Panel Informationon 03-03 [facility] Serum or plasma calcium julius urement (mass/volume)Ordered By: Magalys Mcclure on 03-03-2023 Calcium [Mass/Vol] 8.8 mg/dL 8.5-10.1 [place] Serum or plasma creatinine m easurement (mass/volume)Ordered By: Magalys Mcclure on 03-03-2023 Creatinine [Mass/Vol] 0.62 mg/dL 0.55-1.02 [facility] Comment on above: The validity of the calculated GFR & GFRAA in patients over 70 years has not been determined. Clinical correlation is essential. Serum or plasma urea nitroge n measurement (mass/volume)Ordered By: Magalys Mcclure on 03-03-2023 Urea nitrogen [Mass/Vol] 8 mg/dL 7-18 [facility] Thin prep Papanicolaou smear with manual screeningOrdered By: Magalys Mcclure on 03-03-2023 Thin prep Papanicolaou smear with manual screening 6 5-15 [facility] CARBAM/TEGRETOL Riana 02-22-20 23 carBAMazepine free [Mass/Vol] 2.4 ug/mL 0.8 - 2.4 ug/mL [facility] Absolute lymphocyte countOrd ered By: Magalys Mcclure on 02-18-2023 Lymphocytes Auto (Unsp spec) [#/Vol] 1.05 10*3/uL 0.83-4.51 [facility] Basophil percentageOrdered B y: Magalys Mcclure on 02-18-2023 Basophils/100 WBC (Bld) 0.6 % 0-1 [facility] Bilirubin [Mass/Vol] 0.30 mg/dL 0.20-1.00 [facility] Comment on above: For patients on eltr ombopag therapy, use of Dimension [place] TBIL is not recommended. Chloride [Moles/Vol] 96 mmol/L 98-107 [facility] Cholesterol [Mass/Vol] 175 mg/dL <200 [facility] Comment on above: <200 mg/dL Desirable 200-240 mg/dL Borderline >240 mg/dL High Risk Eosinophils/100 WBC (Bld) 1.7 % 0-5 [facility] Glucose [Mass/Vol] 112 mg/dL 74-106 [place] Comment on above: Fasting Glucose resu lt from 100 to 125 mg/dL suggests IMPAIRED HOMEOSTASIS per A.D.A. criteria. Neutrophils (Bld) [#/Vol] 4.5 10*3/uL 2.0-7.7 [facility] Neutrophils/100 WBC (Bld) 70.1 % 47-70 [facility] Potassium [Moles/Vol] 4.1 mmol/L 3.5-5.1 [facility] Protein [Mass/Vol] 7.3 g/dL 6.4-8.2 [place] Sodium [Moles/Vol] 129 mmol/L 136-145 [place] Triglyceride [Mass/Vol] 146 mg/dL <199 [facility] Comment on above: The drugs N-Acetylcy steine and Metamizole may falsely depress this assay.Serum Triglycerides Reference Interval Normal <150 mg/dL Borderline high 150 - 199 mg/dL High 200 - 499 mg/dL Very High > or = 500 mg/dL WBC (Bld) [#/Vol] 6.4 10*3/uL 4.4-11.0 [place] Blood erythrocytes count (nu mber/volume)Ordered By: Magalys Mcclure on 02-18-2023 RBC (Bld) [#/Vol] 4.11 10*6/uL 4.2-5.4 [facility] Blood hemoglobin measurement (mass/volume)Ordered By: Magalys Mcclure on 02-18-2023 Hemoglobin (Bld) [Mass/Vol] 13.9 g/dL 12.0-15.0 [facility] Blood lymphocytes/100 leukoc ytesOrdered By: Magalys Mcclure on 02-18-2023 Lymphocytes/100 WBC (Bld) 16.4 % 19-41 [facility] Blood monocytes/100 leukocyt esOrdered By: Magalys Mcclure on 02-18-2023 Monocytes/100 WBC (Bld) 10.6 % 0-10 [facility] Blood platelet mean volumeOr dered By: Magalys Mcclure on 02-18-2023 Platelet mean volume (Bld) [Entitic vol] 8.3 fL 6.2-12.0 [facility] Determination of erythrocyte mean corpuscular volume (MCV)Ordered By: Magalys Mcclure on 02-18-2023 MCV (RBC) [Entitic vol] 98.8 fL 81-99 [facility] Hematocrit Auto (Bld) [Volum e fraction]Ordered By: Magalys Mcclure on 02-18-2023 Hematocrit (Bld) [Volume fraction] 40.6 % 37-47 [facility] - Chemistry and C hemistry - challengeOrdered By: Magalys Mcclure on 02-18-2023 ALP [Catalytic activity/Vol] 62 U/L 45-117 [facility] ALT [Catalytic activity/Vol] 25 U/L 13-56 [facility] CO2 [Moles/Vol] 28.0 mmol/L 21.0-32.0 [facility] Globulin (S) [Mass/Vol] 3.5 g/dL 2.2-4.2 [facility] Urea nitrogen/Creatinine [Mass ratio] 17.3 mg/mg 10-20 [facility] - Hematology and Cell countsOrdered By: Magalys Mcclure on 02-18-2023 Erythrocyte distribution width (RBC) [Entitic vol] 42.5 fL 35.1-43.9 [facility] Erythrocyte distribution width (RBC) [Ratio] 11.7 % 11.6-14.6 [facility] Immature granulocytes/100 WBC (Bld) 0.600 % 0.0-0.9 [facility] Comment on above: IG% - Immature Granu locytes (promyelocytes, myelocytes and metamyelocytes) > 1% indicates that a LEFT SHIFT is Present. MCH (RBC) [Entitic mass] 33.8 pg 27.0-32.0 [facility] Nucleated RBC/100 WBC (Bld) [Ratio] 0 % 0-5 [facility] MCHC Auto (RBC) [Mass/Vol]Or dered By: Magalys Mcclure on 02-18-2023 MCHC (RBC) [Mass/Vol] 34.2 g/dL 32-36 [facility] No Panel InformationOrdered By: Magalys Mcclure on 02-18-2023 Estimated GFR (MDRD) Amer 94 mL/min >60 [facility] Comment on above: GFR Calc Estimated GFR (MDRD) Non-Af Amer 78 mL/min >60 [facility] Comment on above: Non- GFR Calc Vitamin D 25-Hydroxy 43.7 ng/mL [facility] Comment on above: Vitamin D 25(OH) Sta tus Range Deficiency <20 ng/mL (50nmol/L) Insufficiency 20 - 30 ng/mL (50 - 75 nmol/L) Sufficiency 30 - 100 ng/mL (75 - 250 nmol/L) Toxicity >100 ng/mL (>250 nmol/L) Platelets bldOrdered By: Kojo Mcclure on 02-18-2023 Platelets (Bld) [#/Vol] 308 10*3/uL 150-450 [facility] Serum or plasma albumin julius urement (mass/volume)Ordered By: Magalys Mcclure on 02-18-2023 Albumin [Mass/Vol] 3.8 g/dL 3.2-5.0 [place] Serum or plasma albumin/glob ulin mass ratioOrdered By: Magalys Mcclure on 02-18-2023 Albumin/Globulin [Mass ratio] 1.1 {ratio} 0.9-2.4 [facility] Serum or plasma calcium julius urement (mass/volume)Ordered By: Magalys Mcclure on 02-18-2023 Calcium [Mass/Vol] 9.1 mg/dL 8.5-10.1 [place] Serum or plasma cholesterol in HDL measurement (mass/volume)Ordered By: Magalys Mcclure on 02-18-2023 Cholesterol in HDL [Mass/Vol] 76 mg/dL >40 [facility] Comment on above: The drugs N-Acetylcy steine and Metamizole may falsely depress this assay. Reference Range HDL <40 mg/dL Low HDL Cholesterol HDL >or= 60 mg/dL High HDL Cholesterol Serum or plasma cholesterol in VLDL measurement (mass/volume)Ordered By: Magalys Mcclure on 02-18-2023 Cholesterol in VLDL [Mass/Vol] 29 mg/dL 5-40 [facility] Serum or plasma creatinine m easurement (mass/volume)Ordered By: Magalys Mcclure on 02-18-2023 Creatinine [Mass/Vol] 0.75 mg/dL 0.55-1.02 [facility] Comment on above: The validity of the calculated GFR & GFRAA in patients over 70 years has not been determined. Clinical correlation is essential. Serum or plasma low density lipoprotein (LDL) cholesterol measurement (mass/volume)Ordered By: Magalys Mcclure on 02-18-2023 Cholesterol in LDL [Mass/Vol] 70 mg/dL 0-130 [facility] Serum or plasma urea nitroge n measurement (mass/volume)Ordered By: Magalys Mcclure on 02-18-2023 Urea nitrogen [Mass/Vol] 13 mg/dL 7-18 [facility] Thin prep Papanicolaou smear with manual screeningOrdered By: Magalys Mcclure on 02-18-2023 Thin prep Papanicolaou smear with manual screening 20 U/L 15-37 [facility] Thin prep Papanicolaou smear with manual screening 5 5-15 [facility] No Panel Informationon 11-29 [facility] Absolute lymphocyte countOrd ered By: Dr. Mcclure on 06-29-2022 Lymphocytes Auto (Unsp spec) [#/Vol] 1.13 10*3/uL 0.83-4.51 [facility] Basophil percentageOrdered B y: Dr. Mcclure on 06-29-2022 Basophils/100 WBC (Bld) 0.7 % 0-1 [facility] Bilirubin [Mass/Vol] 0.30 mg/dL 0.20-1.00 [facility] Comment on above: For patients on eltr ombopag therapy, use of Dimension [place] TBIL is not recommended. Chloride [Moles/Vol] 100 mmol/L 98-107 [facility] Cholesterol [Mass/Vol] 185 mg/dL <200 [facility] Comment on above: <200 mg/dL Desirable 200-240 mg/dL Borderline >240 mg/dL High Risk Eosinophils/100 WBC (Bld) 2.7 % 0-5 [facility] Glucose [Mass/Vol] 87 mg/dL 74-106 [place] Neutrophils (Bld) [#/Vol] 2.7 10*3/uL 2.0-7.7 [facility] Neutrophils/100 WBC (Bld) 61.2 % 47-70 [facility] Potassium [Moles/Vol] 4.4 mmol/L 3.5-5.1 [facility] Protein [Mass/Vol] 7.1 g/dL 6.4-8.2 [place] Sodium [Moles/Vol] 134 mmol/L 136-145 [place] Triglyceride [Mass/Vol] 300 mg/dL <199 [facility] Comment on above: The drugs N-Acetylcy steine and Metamizole may falsely depress this assay.Serum Triglycerides Reference Interval Normal <150 mg/dL Borderline high 150 - 199 mg/dL High 200 - 499 mg/dL Very High > or = 500 mg/dL WBC (Bld) [#/Vol] 4.5 10*3/uL 4.4-11.0 [place] Blood erythrocytes count (nu mber/volume)Ordered By: Dr. Mcclure on 06-29-2022 RBC (Bld) [#/Vol] 4.05 10*6/uL 4.2-5.4 [facility] Blood hemoglobin measurement (mass/volume)Ordered By: Dr. Mcclure on 06-29-2022 Hemoglobin (Bld) [Mass/Vol] 13.9 g/dL 12.0-15.0 [facility] Blood lymphocytes/100 leukoc ytesOrdered By: Dr. Mcclure on 06-29-2022 Lymphocytes/100 WBC (Bld) 25.2 % 19-41 [facility] Blood monocytes/100 leukocyt esOrdered By: Dr. Mcclure on 06-29-2022 Monocytes/100 WBC (Bld) 10.0 % 0-10 [facility] Blood platelet mean volumeOr dered By: Dr. Mcclure on 06-29-2022 Platelet mean volume (Bld) [Entitic vol] 9.3 fL 6.2-12.0 [facility] Determination of erythrocyte mean corpuscular volume (MCV)Ordered By: Dr. Mcclure on 06-29-2022 MCV (RBC) [Entitic vol] 99.8 fL 81-99 [facility] Hematocrit Auto (Bld) [Volum e fraction]Ordered By: Dr. Mcclure on 06-29-2022 Hematocrit (Bld) [Volume fraction] 40.4 % 37-47 [facility] - Chemistry and C hemistry - challengeOrdered By: Dr. Mcclure on 06-29-2022 ALP [Catalytic activity/Vol] 67 U/L 45-117 [facility] ALT [Catalytic activity/Vol] 25 U/L 13-56 [facility] CO2 [Moles/Vol] 25.0 mmol/L 21.0-32.0 [facility] Cobalamin (Vitamin B12) [Mass/Vol] 651 pg/mL 211-911 [facility] Free T4 [Mass/Vol] 0.76 ng/dL 0.76-1.46 [place] Globulin (S) [Mass/Vol] 3.3 g/dL 2.2-4.2 [facility] Urea nitrogen/Creatinine [Mass ratio] 23.7 mg/mg 10-20 [facility] - Hematology and Cell countsOrdered By: Dr. Mcclure on 06-29-2022 Erythrocyte distribution width (RBC) [Entitic vol] 41.1 fL 35.1-43.9 [facility] Erythrocyte distribution width (RBC) [Ratio] 11.2 % 11.6-14.6 [facility] Immature granulocytes/100 WBC (Bld) 0.200 % 0.0-0.9 [facility] Comment on above: IG% - Immature Granu locytes (promyelocytes, myelocytes and metamyelocytes) > 1% indicates that a LEFT SHIFT is Present. MCH (RBC) [Entitic mass] 34.3 pg 27.0-32.0 [facility] Nucleated RBC/100 WBC (Bld) [Ratio] 0 % 0-5 [facility] MCHC Auto (RBC) [Mass/Vol]Or dered By: Dr. Mcclure on 06-29-2022 MCHC (RBC) [Mass/Vol] 34.4 g/dL 32-36 [facility] No Panel InformationOrdered By: Dr. Mcclure on 06-29-2022 Estimated GFR (MDRD) Amer 93 mL/min >60 [facility] Comment on above: GFR Calc Estimated GFR (MDRD) Non-Af Amer 77 mL/min >60 [facility] Comment on above: Non- GFR Calc Thyroid Stimulating Hormone (TSH) 2.16 uIU/mL 0.358-3.74 [facility] Vitamin D 25-Hydroxy 37.6 ng/mL [facility] Comment on above: Vitamin D 25(OH) Sta tus Range Deficiency <20 ng/mL (50nmol/L) Insufficiency 20 - 30 ng/mL (50 - 75 nmol/L) Sufficiency 30 - 100 ng/mL (75 - 250 nmol/L) Toxicity >100 ng/mL (>250 nmol/L) Platelets bldOrdered By: Dr. Mcclure on 06-29-2022 Platelets (Bld) [#/Vol] 286 10*3/uL 150-450 [facility] Serum or plasma albumin julius urement (mass/volume)Ordered By: Dr. Mcclure on 06-29-2022 Albumin [Mass/Vol] 3.8 g/dL 3.2-5.0 [place] Serum or plasma albumin/glob ulin mass ratioOrdered By: Dr. Mcclure on 06-29-2022 Albumin/Globulin [Mass ratio] 1.2 {ratio} 0.9-2.4 [facility] Serum or plasma calcium julius urement (mass/volume)Ordered By: Dr. Mcclure on 06-29-2022 Calcium [Mass/Vol] 9.1 mg/dL 8.5-10.1 [place] Serum or plasma cholesterol in HDL measurement (mass/volume)Ordered By: Dr. Mcclure on 06-29-2022 Cholesterol in HDL [Mass/Vol] 67 mg/dL >40 [facility] Comment on above: The drugs N-Acetylcy steine and Metamizole may falsely depress this assay. Reference Range HDL <40 mg/dL Low HDL Cholesterol HDL >or= 60 mg/dL High HDL Cholesterol Serum or plasma cholesterol in VLDL measurement (mass/volume)Ordered By: Dr. Mcclure on 06-29-2022 Cholesterol in VLDL [Mass/Vol] 60 mg/dL 5-40 [facility] Serum or plasma creatinine m easurement (mass/volume)Ordered By: Dr. Mcclure on 06-29-2022 Creatinine [Mass/Vol] 0.76 mg/dL 0.55-1.02 [facility] Comment on above: The validity of the calculated GFR & GFRAA in patients over 70 years has not been determined. Clinical correlation is essential. Serum or plasma low density lipoprotein (LDL) cholesterol measurement (mass/volume)Ordered By: Dr. Mcclure on 06-29-2022 Cholesterol in LDL [Mass/Vol] 58 mg/dL 0-130 [facility] Serum or plasma urea nitroge n measurement (mass/volume)Ordered By: Dr. Mcclure on 06-29-2022 Urea nitrogen [Mass/Vol] 18 mg/dL 7-18 [facility] Thin prep Papanicolaou smear with manual screeningOrdered By: Dr. Mcclure on 06-29-2022 Thin prep Papanicolaou smear with manual screening 24 U/L 15-37 [facility] Thin prep Papanicolaou smear with manual screening 9 5-15 [facility] Basophil percentageOrdered B y: Dr. Mcclure on 04-14-2022 Bilirubin [Mass/Vol] 0.40 mg/dL 0.20-1.00 [facility] Comment on above: For patients on eltr ombopag therapy, use of Dimension [place] TBIL is not recommended. Chloride [Moles/Vol] 99 mmol/L 98-107 [facility] Glucose [Mass/Vol] 92 mg/dL 74-106 [place] Potassium [Moles/Vol] 4.0 mmol/L 3.5-5.1 [facility] Protein [Mass/Vol] 6.9 g/dL 6.4-8.2 [place] Sodium [Moles/Vol] 133 mmol/L 136-145 [place] [facility] - Chemistry and C hemistry - challengeOrdered By: Dr. Mcclure on 04-14-2022 ALP [Catalytic activity/Vol] 67 U/L 45-117 [facility] ALT [Catalytic activity/Vol] 25 U/L 13-56 [facility] CO2 [Moles/Vol] 30.0 mmol/L 21.0-32.0 [facility] Globulin (S) [Mass/Vol] 3.4 g/dL 2.2-4.2 [facility] Urea nitrogen/Creatinine [Mass ratio] 26.9 mg/mg 10-20 [facility] No Panel InformationOrdered By: Dr. Mcclure on 04-14-2022 Estimated GFR (MDRD) Amer 90 mL/min >60 [facility] Comment on above: GFR Calc Estimated GFR (MDRD) Non-Af Amer 75 mL/min >60 [facility] Comment on above: Non- GFR Calc Vitamin D 25-Hydroxy 41.9 ng/mL [facility] Comment on above: Vitamin D 25(OH) Sta tus Range Deficiency <20 ng/mL (50nmol/L) Insufficiency 20 - 30 ng/mL (50 - 75 nmol/L) Sufficiency 30 - 100 ng/mL (75 - 250 nmol/L) Toxicity >100 ng/mL (>250 nmol/L) Serum or plasma albumin julius urement (mass/volume)Ordered By: Dr. Mcclure on 04-14-2022 Albumin [Mass/Vol] 3.5 g/dL 3.2-5.0 [place] Serum or plasma albumin/glob ulin mass ratioOrdered By: Dr. Mcclure on 04-14-2022 Albumin/Globulin [Mass ratio] 1.0 {ratio} 0.9-2.4 [facility] Serum or plasma calcium julius urement (mass/volume)Ordered By: Dr. Mcclure on 04-14-2022 Calcium [Mass/Vol] 9.1 mg/dL 8.5-10.1 [place] Serum or plasma creatinine m easurement (mass/volume)Ordered By: Dr. Mcclure on 04-14-2022 Creatinine [Mass/Vol] 0.78 mg/dL 0.55-1.02 [facility] Comment on above: The validity of the calculated GFR & GFRAA in patients over 70 years has not been determined. Clinical correlation is essential. Serum or plasma urea nitroge n measurement (mass/volume)Ordered By: Dr. Mcclure on 04-14-2022 Urea nitrogen [Mass/Vol] 21 mg/dL 7-18 [facility] Thin prep Papanicolaou smear with manual screeningOrdered By: Dr. Mcclure on 04-14-2022 Thin prep Papanicolaou smear with manual screening 24 U/L 15-37 [facility] Thin prep Papanicolaou smear with manual screening 4 5-15 [facility] OBSOLETEon 06-01-2021 OBSOLETE Refill (MARCKAGATrinidad) KATRINA MANCINI ([id number]) 1940 F Date Time Provider Department 06/01/21 AB SHAFFER JR During your visit today, [...] SULFA (SULFONAMIDE ANTIBIOTICS) 10/17/2002 Comments: nasea vomtting [id number] ANTIMIGRAINE [id number]/17/2002 Comments: heart palpitations Date Reviewed: 09/22/2020 Reviewed by: Rose ([facility]) Bijan - Fully Assessed Reason for [...] Encounter Status:Closed by AB SHAFFER on 06/01/21 [facility] OBSOLETEon 04-17-2021 OBSOLETE Refill (NEURBA) KATRINA MANCINI ([id number]) 1940 F Date Time Provider Department 04/17/21 AB SHAFFER JR During your visit today, [...] SULFA (SULFONAMIDE ANTIBIOTICS) 10/17/2002 Comments: nasea vomtting [id number] ANTIMIGRAINE [id number]/17/2002 Comments: heart palpitations Date Reviewed: 09/22/2020 Reviewed by: Rose ([facility]) Bijan - Fully Assessed Reason for [...] Encounter Status:Closed by AB SHAFFER on 04/17/21 [facility] OBSOLETEon 10-31-2020 OBSOLETE Refill (NEURBA) KATRINA MANCINI ([id number]) 1940 F Date Time Provider Department 10/31/20 AB SHAFFER JR NEURBA During your visit today, we recorded the following information about you: Nidhi Flowers 11/05/2020 10:48 AM Signed Patient calling asking on the status of this. 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 yes Request is for script(s) to be escript to pharmacy. JUDY Smalls 08/26/2020 2:53 PM Signed Patient called our [...] SULFA (SULFONAMIDE ANTIBIOTICS) 10/17/2002 Comments: nasea vomtting [id number] ANTIMIGRAINE [id number]/17/2002 Comments: heart palpitations Date Reviewed: 12/29/2019 Reviewed [...] Encounter Status:Closed by AB SHAFFER on 08/26/20 [facility] OBSOLETEon 06-28-2020 OBSOLETE Refill (NEURBA) KATRINA MANCINI ([id number]) 1940 F Date Time Provider Department 06/28/20 AB SHAFFER JR NEURBA During your visit today, we recorded the following information about you: Kirsty Castellanos MA 06/30/2020 12:34 PM Signed Pharmacy [...] - Sulfa (Sulfonamide * nasea vomtting - [id number]-[id number] Anti* heart palpitations (home) Last Visit date: Visit date not found Future appointment: Visit date not found The patients preferred pharmacy has been captured for this encounter? yes Request is for script(s) to be escript to pharmacy. Kirsty Castellanos MA Allergies As of Date: 06/28/2020 Noted Allergy Reaction CODEINE 10/17/2002 Comments: nasea vomitting FLOXIN (OFLOXACIN) 04/18/2006 Comments: depression IMITREX (SUMATRIPTAN SUCCINATE) 04/18/2006 Comments: sweating, drop in BP MORPHINE 10/17/2002 Comments: nasea vomitting OPIOIDS-MEPERIDINE AND RELATED 10/17/2002 Comments: nasea vomitting SULFA (SULFONAMIDE ANTIBIOTICS) 10/17/2002 Comments: nasea vomtting [id number] ANTIMIGRAINE [id number]/17/2002 Comments: heart palpitations Date Reviewed: 12/29/2019 Reviewed [...] Status:Closed by AB SHAFFER on 06/30/20 Normal [facility] Mis. Teston 12-25-2019 [facility]. Test Result SEE BELOW [facility] Comment on above: Result Comment: Hemo globin A1c 5.3 4.3-5.6 % [place] [employer] guidelines indicate that patients with HgbA1c in the range 5.7-6.4% are at increased risk for development of diabetes, and intervention by lifestyle modification may be beneficial. HgbA1c greater or equal to 6.5% is considered diagnostic of diabetes. Est. Average Glucose 105 mg/dL eAG: (Estimated average glucose) is a calculated value from HgbA1c and is sales development representative of the average blood glucose level in the last 2-3 month period. Performing Laboratory: [facility] [employer] [address] [place] [address] Performed By: #### G OX #### [address] [address] Protein Electrophoresis, Ser umon 12-25-2019 Albumin [Mass/Vol] 4.27 g/dL High 3.37-4.23 [facility] Comment on above: Performed By: #### S EPGX #### [facility] [address] [place] [address] Alpha 1 Globulin 0.21 gm/dL Normal 0.18-0.31 [facility] Comment on above: Performed By: #### S EPGX #### [facility] [address] [place] [address] Alpha 2 Globulin 0.82 gm/dL Normal 0.52-0.97 [facility] Comment on above: Performed By: #### S EPGX #### [facility] [address] [place] [address] Beta Globulin 0.73 gm/dL Low 0.84-1.36 [facility] Comment on above: Performed By: #### S EPGX #### [facility] [address] [place] [address] Gamma Globulin 0.86 gm/dL Normal 0.70-1.44 [facility] Comment on above: Performed By: #### S EPGX #### [facility] [address] [place] [address] Interpretation SEE BELOW Normal [facility] Comment on above: Result Comment: No d efinitive M protein is identified on protein electrophoresis. Performed By: #### S EPGX #### [facility] [address] [place] [address] M David Concentratn 0.00 gm/dL Normal 0.00 [facility] Comment on above: Performed By: #### S EPGX #### [facility] [address] [address] Protein [Mass/Vol] 6.9 g/dL Normal 6.3-8.0 [facility] Comment on above: Performed By: #### S EPGX #### [facility] [address] [place] [address] Protein [Mass/Vol] N/A Normal [facility] Comment on above: Performed By: #### S EPGX #### [place] [address] Staff Review SEE BELOW Normal [facility] Comment on above: Result Comment: Revi ewed by Tammy York MD ([id number]) Performing Laboratory: [facility] [address] [place] [address] Performed By: #### S EPGX #### [place] [address] Misc. Teston 12-24-2019 [facility] Order Code HBA1C Normal [facility] Comment on above: Performed By: #### G OX #### [place] [address] Test Name Hgb A1C Normal [facility] Comment on above: Performed By: #### G OX #### [place] [address] Sed Rateon 12-22-2019 Sed Rate 7 mm/hr Normal 0-20 [facility] Comment on above: Performed By: #### E SR #### [place] [address] Free Thyroxineon 12-21-2019 Free T4 [Mass/Vol] 0.9 ng/dL Normal 0.9-1.7 [facility] Comment on above: Result Comment: Jelly ents [...] result. Performed By: #### F T4A #### [place] [address] TSHon 12-21-2019 TSH Qn 2.580 uIU/mL Normal 0.270-4.200 [facility] Comment on above: Result Comment: Preg [...] result. Performed By: #### T SH3 #### [address] [address] Vitamin B12on 12-21-2019 Cobalamin (Vitamin B12) [Mass/Vol] 567 pg/mL Normal 232-1245 [facility] Comment on above: Result Comment: Jelly ents [...] result. Performed By: #### B 12 #### [address] [address] Final Surgical Pathology Rep [facility] 05-30-2019 Final Surgical Pathology Report . Pathology Reports Accession: Collected Date/Time: Received Date/Time: Pathologist: [id number] 05/25/2019 09:56 EST 05/28/2019 10:43 EST MD NONA BABB Final Surgical Pathology Report DIAGNOSIS: A) COLON, BIOPSY: NO SPECIFIC PATHOLOGIC CHANGES. B) DISTAL TRANSVERSE COLON, BIOPSY: TUBULAR ADENOMA. C) SIGMOID COLON, BIOPSY: HYPERPLASTIC POLYP. COMMENT: DEYANIRA - Wanda# [id number] CLINICAL INFORMATION: Procedure: COLONOSCOPY WITH POLYPECTOMIES AND [...] tissue. TS -1 Dictated by Moni DUNN ([facility]) MICROSCOPIC DESCRIPTION: A,B&C) Slides reviewed. Electronically Signed by Pathology Report verified by [facility] Electronically signed by NONA BABB MD Sign out Date: 05/30/2019 16:51 Performing Lab: [facility], [address] [place] [address] ([place]) Comment on above: Performed By: #### S PFR #### [place] [address] Office Visit: est annualon 1 Documentation of current medications (procedure) Done Invalid Interpretation Code [facility] Fall risk assessment Yes Invalid Interpretation Code [facility] Tobacco smoking status NHIS Never Invalid Interpretation Code [facility] Tobacco smoking status NHIS Never smoker Invalid Interpretation Code [facility] Tobacco use CPHS Never smoker Invalid Interpretation Code [facility] Vital Signs Date Time Vital Sign Value Performing Clinician Faci lity 01-02-2025 12:54-0400 Body height 160.[address] Magalys Mcclure MD Work Phone: [facility] 01-02-2025 12:54-0400 Body mass index (BMI) [Ratio] 23.2 kg/m2 Dr. Magalys Mcclure MD Work Phone: [facility] 01-02-2025 12:54-0400 Body weight 59.[address] Magalys Mcclure MD Work Phone: [facility] 01-02-2025 12:54-0400 Diastolic blood pressure 75 mm[Hg] Dr. Magalys Mcclure MD Work Phone: [facility] 01-02-2025 12:54-0400 Heart rate 84 /min Dr. Magalys Mcclure MD Work Phone: [facility] 01-02-2025 12:54-0400 Respiratory rate 16 /min Dr. Magalys Mcclure MD Work Phone: [facility] 01-02-2025 12:54-0400 SaO2% (BldA) [Mass fraction] 96 % Dr. Magalys Mcclure MD Work Phone: [facility] 01-02-2025 12:54-0400 Systolic blood pressure 132 mm[Hg] Dr. Magalsy Mcclure MD Work Phone: [phone])[phone] [place] [address] 07-10-2024 08:50-0500 Body height 160.[address] Magalys Mcclure MD Work Phone: 1(545)[phone] [place] [address] 07-10-2024 08:50-0500 Body mass index (BMI) [Ratio] 24.3 kg/m2 Dr. Magalys Mcclure MD Work Phone: [phone])[phone] [address] 07-10-2024 08:50-0500 Body weight 62.[address] Magalys Mcclure MD Work Phone: [facility] 07-10-2024 08:50-0500 Diastolic blood pressure 59 mm[Hg] Dr. Magalys Mcclure MD Work Phone: [facility] 07-10-2024 08:50-0500 Heart rate 58 /min Dr. Magalys Mcclure MD Work Phone: 8(345)[phone] [place] [address] 07-10-2024 08:50-0500 Respiratory rate 16 /min Dr. Magalys Mcclure MD Work Phone: [facility] 07-10-2024 08:50-0500 Systolic blood pressure 107 mm[Hg] Dr. Magalys Mcclure MD Work Phone: [facility] 05-24-2024 13:47-0500 Body mass index (BMI) [Ratio] 23.9 kg/m2 Dr. Magalys Mcclure MD Work Phone: [facility] 05-24-2024 13:47-0500 Body weight 61.[address] Magalys Mcclure MD Work Phone: [facility] 05-24-2024 13:47-0500 Diastolic blood pressure 70 mm[Hg] Dr. Magalys Mcclure MD Work Phone: [facility] 05-24-2024 13:47-0500 Systolic blood pressure 136 mm[Hg] Dr. Magalys Mcclure MD Work Phone: [facility] 03-02-2024 15:22-0400 Body mass index (BMI) [Ratio] 22.53 kg/m2 Ab Shaffer Jr., MD Work Phone: [facility] 03-02-2024 15:22-0400 Body weight 58.6 kg Ab Shaffer Jr., MD Work Phone: [facility] 03-02-2024 15:22-0400 Diastolic blood pressure 71 mm[Hg] Ab Shaffer Jr., MD Work Phone: [facility] 03-02-2024 15:22-0400 Heart rate 61 /min Ab Shaffer Jr., MD Work Phone: [facility] 03-02-2024 15:22-0400 SaO2% (BldA) [Mass fraction] 97 % Ab Shaffer Jr., MD Work Phone: [facility] 03-02-2024 15:22-0400 Systolic blood pressure 124 mm[Hg] Ab Shaffer Jr., MD Work Phone: [facility] 09-30-2023 10:38-0400 Body height 160.[address] Magalys Mcclure Work Phone: [facility] 09-30-2023 10:35-0400 Body mass index (BMI) [Ratio] 23.7 kg/m2 Dr. Magalys Mcclure Work Phone: [facility] 09-30-2023 10:35-0400 Body weight 60.[address] Magalys Mcclure Work Phone: [facility] 09-30-2023 10:35-0400 Diastolic blood pressure 71 mm[Hg] Dr. Magalys Mcclure Work Phone: [facility] 09-30-2023 10:35-0400 Systolic blood pressure 162 mm[Hg] Dr. Magalys Mcclure Work Phone: [facility] 08-01-2023 16:07-0500 Body weight 59.6 kg Ab Shaffer Jr., MD Work Phone: [facility] 08-01-2023 16:07-0500 Diastolic blood pressure 78 mm[Hg] Ab Shaffer Jr., MD Work Phone: [facility] 08-01-2023 16:07-0500 Heart rate 77 /min Ab Shaffer Jr., MD Work Phone: [facility] 08-01-2023 16:07-0500 Respiratory rate 16 /min Ab Shaffer Jr., MD Work Phone: [facility] 08-01-2023 16:07-0500 SaO2% (BldA) [Mass fraction] 97 % Ab Shaffer Jr., MD Work Phone: [facility] 08-01-2023 16:07-0500 Systolic blood pressure 136 mm[Hg] Ab Shaffer Jr., MD Work Phone: [facility] 04-14-2023 11:34-0400 Body height 160.[address] Magalys Mcclure Work Phone: [facility] 04-14-2023 11:34-0400 Body mass index (BMI) [Ratio] 23.6 kg/m2 Dr. Magalys Mcclure Work Phone: [facility] 04-14-2023 11:34-0400 Body weight 60.[address] Magalys Mcclure Work Phone: [facility] 04-14-2023 11:34-0400 Diastolic blood pressure 78 mm[Hg] Dr. Magalys Mcclure Work Phone: [facility] 04-14-2023 11:34-0400 Heart rate 81 /min Dr. Magalys Mcclure Work Phone: [facility] 04-14-2023 11:34-0400 Respiratory rate 16 /min Dr. Magalys Mcclure Work Phone: [facility] 04-14-2023 11:34-0400 Systolic blood pressure 145 mm[Hg] Dr. Magalys Mcclure Work Phone: [facility] 03-17-2023 13:53-0400 Body mass index (BMI) [Ratio] 23.4 kg/m2 Dr. Magalys Mcclure Work Phone: [facility] 03-17-2023 13:53-0400 Body weight 60.[address] Magalys Mcclure Work Phone: [facility] 03-17-2023 13:53-0400 Diastolic blood pressure 82 mm[Hg] Dr. Magalys Mcclure Work Phone: [facility] 03-17-2023 13:53-0400 Systolic blood pressure 158 mm[Hg] Dr. Magalys Mcclure Work Phone: [facility] 02-21-2023 11:38-0400 Body weight 60.24 kg Ab Shaffer Jr., MD Work Phone: [facility] 02-21-2023 11:38-0400 Diastolic blood pressure 81 mm[Hg] Ab Shaffer Jr., MD Work Phone: [facility] 02-21-2023 11:38-0400 Heart rate 76 /min Ab Shaffer Jr., MD Work Phone: [facility] 02-21-2023 11:38-0400 Respiratory rate 16 /min Ab Shaffer Jr., MD Work Phone: [facility] 02-21-2023 11:38-0400 SaO2% (BldA) [Mass fraction] 96 % Ab Shaffer Jr., MD Work Phone: [facility] 02-21-2023 11:38-0400 Systolic blood pressure 145 mm[Hg] Ab Shaffer Jr., MD Work Phone: [facility] 10-20-2022 15:56-0400 Body temperature 97.81 [degF] Vicenta Chirinos PA-C Work Phone: [facility] 10-20-2022 15:56-0400 Body weight 64.86 kg Vicenta Chirinos PA-C Work Phone: [facility] 10-20-2022 15:56-0400 Diastolic blood pressure 84 mm[Hg] Vicenta Chirinos PA-C Work Phone: [facility] 10-20-2022 15:56-0400 Heart rate 75 /min Vicenta Chirinos PA-C Work Phone: [facility] 10-20-2022 15:56-0400 Respiratory rate 16 /min Vicenta Chirinos PA-C Work Phone: [facility] 10-20-2022 15:56-0400 SaO2% (BldA) [Mass fraction] 95 % Vicenta Chirinos PA-C Work Phone: [facility] 10-20-2022 15:56-0400 Systolic blood pressure 146 mm[Hg] Vicenta Chirinos PA-C Work Phone: [facility] 05-12-2022 15:30-0500 Body height 160.[address] Magalys Mcclure Work Phone: [facility] 05-12-2022 15:30-0500 Body mass index (BMI) [Ratio] 24.5 kg/m2 Dr. Magalys Mcclure Work Phone: [facility] 05-12-2022 15:30-0500 Body weight 62.[address] Magalys Mcclure Work Phone: [facility] 05-12-2022 15:30-0500 Diastolic blood pressure 76 mm[Hg] Dr. Magalys Mcclure Work Phone: [facility] 05-12-2022 15:30-0500 Systolic blood pressure 165 mm[Hg] Dr. Magalys Mcclure Work Phone: [facility] 01-22-2022 11:36-0400 Body temperature 97.3 [degF] Dr. Magalys Mcclure Work Phone: [facility] Work Phone: 01-22-2022 11:36-0400 Diastolic blood pressure 59 mm[Hg] Dr. Magalys Mcclure Work Phone: [facility] Work Phone: 01-22-2022 11:36-0400 Heart rate 70 /min Dr. Magalys Mcclure Work Phone: [facility] Work Phone: 01-22-2022 11:36-0400 Respiratory rate 16 /min Dr. Magalys Mcclure Work Phone: [facility] Work Phone: 01-22-2022 11:36-0400 SaO2% (BldA) [Mass fraction] 98 % Dr. Magalys Mcclure Work Phone: [facility] Work Phone: 01-22-2022 11:36-0400 Systolic blood pressure 162 mm[Hg] Dr. Magalys Mcclure Work Phone: [facility] Work Phone: 01-22-2022 08:23-0400 Body height 160.[address] Magalys Mcclure Work Phone: [facility] Work Phone: 01-22-2022 08:23-0400 Body mass index (BMI) [Ratio] 24.3 kg/m2 Dr. Magalys Mcclure Work Phone: [facility] Work Phone: 01-22-2022 08:23-0400 Body weight 62.[address] Magalys Mcclure Work Phone: [facility] Work Phone: 03-18-2017 13:11-0400 BMI (Body Mass Index) 25.78 kg/m2 Taryn Lee MD [facility] 03-18-2017 13:11-0400 Body Temperature 97.4 [degF] Taryn Lee MD [facility] 03-18-2017 13:11-0400 Body Temperature 97.39 [degF] Taryn Lee MD [facility] 03-18-2017 13:11-0400 BP Diastolic 73 mm[Hg] Taryn Lee MD [facility] 03-18-2017 13:11-0400 BP Systolic 147 mm[Hg] Taryn Lee MD [facility] 03-18-2017 13:11-0400 Height 162.56 cm Taryn Lee MD [facility] 03-18-2017 13:11-0400 Pulse (Heart Rate) 63 /min Taryn Lee MD [facility] 03-18-2017 13:11-0400 Respiratory Rate 16 /min Taryn Lee MD [facility] 03-18-2017 [id number] Weight 68.[address] [facility] Encounters Encounter Date Encounter Type Care Provider Facility Start: 01-31-2025 ambulatory Magalys Mcclure Facilit y:[facility] Start: 01-25-2025 End: 01-25-2025 Refill Ab Shaffer MD Work Phone: Neurology Comment on above: Refill Request Start: 01-21-2025 Non-patient / Non-visit Amanda gr NP-Arian -[facility] Work Phone: Start: 01-21-2025 ambulatory Magalys Mcclure Facilit y:[facility] Start: 01-21-2025 Non-patient / Non-visit Dr. Tristen daniels MD -[facility] Start: 01-21-2025 End: 01-21-[address] Magalys Mcclure MD Work Phone: -Ultrasound [facility] Start: 01-21-2025 End: 01-21-[address] Samir Forrest MD -Ultrasound [facility] Work Phone: Start: 01-21-2025 End: 01-21-2025 ambulatory Magalys Mcclure Facility:[facility] Start: 01-02-2025 End: 01-02-[address] Samir Forrest MD -[facility] Work Phone: Start: 01-02-2025 End: 01-02-[address] Magalys Mcclure MD Work Phone: -[facility] Start: 12-24-2024 End: 12-24-2024 Refill Ab Shaffer MD Work Phone: Neurology Comment on above: Refill Request Start: 12-19-2024 End: 12-21-2024 Telephone encounter Ab Shaffer MD Work Phone: Neurology Comment on above: Dr [facility] Start: 11-20-2024 End: 11-20-[address] Magalys Mcclure MD Work Phone: [facility] Work Phone: Start: 11-20-2024 End: 11-20-[address] Magalys Mcclure MD -[facility] Work Phone: Start: 11-20-2024 End: 11-20-2024 ambulatory Magalys Mcclure Facility:[facility] Start: 08-16-2024 End: 08-16-[address] Magalys Mcclure MD Work Phone: [facility] Work Phone: Start: 08-16-2024 End: 08-16-[address] [facility] Start: 08-16-2024 End: 08-16-2024 ambulatory Magalys Mcclure Facility:[facility] Start: 07-10-2024 End: 07-10-[address] Samir Forrest MD -[facility] Work Phone: Start: 07-10-2024 End: 07-10-2024 ambulatory Magalys Mcclure Facility:[facility] Start: 06-19-2024 End: 08-03-2024 Refill Ab Shaffer MD Work Phone: Neurology Comment on above: Refill Request Start: 06-15-2024 End: 08-08-2024 ambulatory MAGALYS MCCLURE MD Facility:[facility] Start: 06-15-2024 End: 08-08-2024 Physical therapy management NED CHIU MD [facility] Start: 05-31-2024 End: 05-31-[address] Ned Chiu MD -[facility] Work Phone: Start: 05-31-2024 End: 05-31-2024 ambulatory Magalys Mcclure Facility:[facility] Start: 05-24-2024 End: 05-24-[address] Taryn Lee MD -[facility] Work Phone: Start: 05-24-2024 End: 05-24-[address] Taryn Lee MD [facility] Start: 05-24-2024 End: 05-24-2024 ambulatory Magalys Mcclure Facility:[facility] Start: 05-15-2024 End: 05-15-[address] [facility] Start: 05-15-2024 End: 05-15-2024 ambulatory Magalys Mcclure Facility:[facility] Start: 04-27-2024 End: 04-27-2024 ambulatory Magalys Mcclure Facility:[facility] Start: 04-11-2024 End: 04-11-2024 ambulatory Magalys Mcclure Facility:[facility] Start: 04-03-2024 End: 04-03-2024 ambulatory Magalys Mcclure Facility:[facility] Start: 04-03-2024 End: 04-03-2024 ambulatory Magalys Mcclure Facility:[facility] Start: 03-05-2024 End: 03-05-2024 ambulatory AB SHAFFER JR Facility:[facility] Start: 03-05-2024 End: 03-05-2024 ambulatory Magalys Mcclure Facility:[facility] Start: 03-02-2024 End: 03-02-2024 Patient encounter procedure Ab Shaffer MD Work Phone: Neurology Comment on above: Generalized convulsi ve epilepsy (HCC) (Primary Dx); Hyponatremia; MELA (obstructive sleep apnea); Migraine without aura and without status migrainosus, not intractable; Dizziness Start: 03-02-2024 End: 03-02-2024 ambulatory AB SHAFFER JR Facility:[facility] Start: 02-24-2024 End: 02-24-2024 ambulatory Magalys Mcclure Facility:[facility] Start: 02-17-2024 End: 02-20-2024 Refill Ab Shaffer MD Work Phone: Neurology Comment on above: Refill Request Start: 10-18-2023 Refill Ab kline MD Work Phone: [facility] [place] Comment on above: Refill Request Start: 09-30-2023 End: 09-30-[address] Magalys Mcclure Work Phone: [facility] Work Phone: Start: 09-30-2023 End: 09-30-[address] Magalys Mcclure Work Phone: [facility]-Laboratory, Specimen Work Phone: Start: 09-30-[address] Fredy Mcclure Work Phone: [facility] Start: 09-30-2023 End: 09-30-[address] Magalys Mcclure Work Phone: [facility] Start: 09-30-2023 End: 09-30-[address] Magalys Mcclure Work Phone: [facility] Work Phone: Start: 08-01-2023 End: 08-01-2023 Patient encounter procedure Ab Shaffer MD Work Phone: Neurology Comment on above: Dizziness (Primary D x); Generalized convulsive epilepsy (HCC); MELA (obstructive sleep apnea); Migraine without aura and without status migrainosus, not intractable; Hyponatremia Start: 07-25-2023 Refill Ab kline MD Work Phone: Sleep Comment on above: Refill Request Start: 07-22-2023 End: 07-22-[address] Magalys Mcclure Work Phone: [facility] Work Phone: Start: 07-22-2023 End: 07-22-[address] Magalys Mcclure Work Phone: [facility] Work Phone: Start: 07-06-[address] [facility] Start: 06-23-2023 End: 06-23-[address] Magalys Mcclure Work Phone: [facility] Work Phone: Start: 06-23-2023 End: 06-23-[address] Magalys Mcclure Work Phone: [facility] Work Phone: Start: 06-16-[address] Magalys Mcclure [facility] Start: 05-25-2023 End: 05-25-[address] Magalys Mcclure Work Phone: [facility] Work Phone: Start: 05-25-2023 End: 05-25-[address] Magalys Mcclure Work Phone: [facility] Work Phone: Start: 05-24-2023 End: 05-24-[address] Magalys Mcclure Work Phone: [facility] Work Phone: Start: 05-24-2023 End: 05-24-[address] Magalys Mcclure Work Phone: [facility]-Out[facility] Work Phone: Start: 04-29-2023 End: 04-29-2023 ambulatory Marcella Pedro PT [facility] Comment on above: Dizziness and giddin ess (Primary Dx) Start: 04-21-2023 End: 04-21-[address] Magalys Mcclure Work Phone: [facility] Work Phone: Start: 04-21-2023 End: 04-21-[address] Magalys Mcclure Work Phone: [facility]-Laboratory, Specimen Work Phone: Start: 04-20-2023 Refill Ab kline MD Work Phone: [facility] Comment on above: Refill Request Start: 04-14-2023 End: 04-14-[address] Magalys Mcclure Work Phone: [facility] Work Phone: Start: 04-14-2023 End: 04-14-[address] Magalys Mcclure Work Phone: [facility]-Laboratory Work Phone: Start: 04-14-2023 End: 04-14-[address] Magalys Mcclure Work Phone: 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 Magalys Mcclure Work Phone: [facility] Work Phone: Start: 04-01-2023 End: 04-01-[address] Magalys Mcclure Work Phone: [facility] Start: 03-30-2023 End: 03-30-2023 ambulatory Marcella Pedro PT [facility] Comment on above: Dizziness and giddin ess (Primary Dx) Start: 03-18-2023 End: 03-18-2023 Patient encounter procedure Sharonda Duran PhD Work Phone: Audiology Comment on above: Dizziness (Primary D x); Vestibular dysfunction, right Start: 03-17-2023 End: 03-17-[address] Magalys Mcclure Work Phone: [facility] Work Phone: Start: 03-17-2023 End: 03-17-[address] Magalys Mcclure Work Phone: [facility] Work Phone: Start: 03-16-2023 End: 03-16-[address] Magalys Mcclure Work Phone: [facility], [facility] Work Phone: Start: 03-11-2023 Telephone encounter Ab Shaffer MD Work Phone: Neurology Comment on above: Patient Question Start: 03-03-2023 End: 03-03-[address] Magalys Mcclure Work Phone: [facility] Work Phone: Start: 03-03-2023 End: 03-03-2023 Subsequent hospital visit by physician [facility] (I-Stat) Work Phone: Cat Scan Comment on [...] carotid stenosis Start: 02-18-2023 End: 02-18-2023 ambulatory [facility] Work Phone: Start: 02-18-2023 End: 02-18-2023 Patient encounter procedure [facility] Start: 02-02-2023 End: 02-02-2023 ambulatory [facility] Work Phone: Start: 02-02-2023 End: 02-02-2023 Patient encounter procedure [facility]-Cat Scan, [facility] Work Phone: Start: 01-12-2023 Telephone encounter Vicenta moore PA-C Work Phone: Neurology Comment on above: Fax Results Start: 12-29-2022 Refill Ab kline MD Work Phone: Neurology Comment on above: Refill Request Start: 12-28-2022 End: 12-28-2022 ambulatory [facility] Work Phone: Start: 12-28-2022 End: 12-28-2022 Patient encounter procedure [facility] Work Phone: Start: 12-17-2022 End: 12-17-2022 ambulatory Marcella O'Anthony PT [facility] Comment on above: Dizziness (Primary D x); Unsteadiness Start: 12-01-2022 End: 12-01-2022 ambulatory Marcella O'Anthony PT [facility] Comment on above: Unsteadiness (Primar y Dx); Dizziness Start: 11-30-2022 Telephone encounter Vicenta moore PA-C Work Phone: Neurology Comment on above: Results Start: 11-29-2022 End: 11-29-2022 Subsequent hospital visit by physician [facility] (I-Stat/1.5t) Work Phone: Radiology Comment on above: Dizziness [R42] Start: 11-09-2022 Refill Ab kline MD Work Phone: [facility] Comment on above: Refill Request Start: 10-20-2022 [...] 06-29-[address] Magalys Mcclure Work Phone: [facility] Work Phone: Start: 06-29-2022 End: 06-29-[address] Magalys Mcclure Work Phone: [facility] Start: 06-11-2022 Refill Ab kline MD Work Phone: [facility] Comment on above: Refill Request Start: 05-12-2022 End: 05-12-[address] Magalys Mcclure Work Phone: [facility] Work Phone: Start: 05-12-2022 End: 05-12-[address] Magalys Mcclure Work Phone: [facility]-Outpatient [facility] Start: 05-12-2022 End: 05-12-[address] Magalys Mcclure Work Phone: [facility] Start: 04-14-2022 End: 04-14-[address] Magalys Mcclure Work Phone: [facility] Work Phone: Start: 04-14-2022 End: 04-14-[address] Magalys Mcclure Work Phone: [facility] Start: 03-11-2022 End: 03-11-[address] Magalys Mcclure Work Phone: [facility] Work Phone: Start: 03-11-2022 End: 03-11-[address] Magalys Mcclure Work Phone: [facility]-Outpatient Bone Densitometry Start: 02-03-2022 End: 02-03-[address] Magalys Mcclure Work Phone: [facility] Start: 01-22-2022 Non-patient / Non-visit Dr. Beverly Mcclure Work Phone: [facility] Start: 01-22-2022 End: 01-22-2022 Admission to same day surgery center Dr. Magalys Mcclure Work Phone: [facility]-S[facility] Start: 01-06-2022 End: 01-06-[address] Magalys Mcclure Work Phone: [facility] Start: 10-22-2021 Telephone encounter Ab Shaffer MD Work Phone: Neurology Comment on above: Results Start: 09-17-2021 Telephone encounter Ab Shaffer MD Work Phone: Neurology Comment on above: Carbamazapine level Procedures Date Procedure Procedure Detail Performing Clinician Start: 11-20-2024 Vitamin D, 25-hydroxy measurement Dr. Beverly Mcclure MD Work Phone: Comment on above: Vitamin D StatusDeficiency: <20 ng/mL (5 0nmol/L)Insufficiency: 20-30 ng/mL (50-75 nmol/L)Sufficiency: 30-100 ng/mL (75-250 nmol/L)Toxicity: >100 ng/mL (>250 nmol/L) Start: 08-16-2024 Vitamin D, 25-hydroxy measurement Dr. Beverly Mcclure MD Work Phone: Comment on above: Vitamin D StatusDeficiency: <20 ng/mL (5 0nmol/L)Insufficiency: 20-30 ng/mL (50-75 nmol/L)Sufficiency: 30-100 ng/mL (75-250 nmol/L)Toxicity: >100 ng/mL (>250 nmol/L) Start: 05-31-2024 Plain x-ray of pelvis and [...] Detail Author Start: 02-06-2029 Urine microalbumin profile [facility] Start: 02-21-2026 Diabetes Screening Diabetes Screening [facility] Start: 03-08-2025 End: 03-08-2025 Patient encounter procedure 03/08/2025 3:20 PM EDT Office Visit Neu[facility] [address] [facility] [place] [address] Ab Shaffer Jr., MD [address] [facility] [place] [id number] follow up Neurology Comment on above: follow up Start: 02-11-2025 Influenza vaccination Influenza Vaccine (#1) [facility] Start: 08-31-2024 End: 08-31-2024 Patient encounter procedure 08/31/2024 2:00 PM EDT Office Visit Neurology [address] [facility] [place] [facility] [id number] Ab Shaffer Jr., MD [address] [facility] [address] [place] [address] follow up Neurology Comment on above: follow up Start: 2024 Advance Directive Discussion Advance Directive Discussion [facility] Start: 2024 Medicare Advantage Annual Wellness Visit Medicare Advantage Annual Wellness Visit [facility] Start: 05-31-2024 Patient referral [facility] Work Phone: Start: 03-02-2024 End: 03-02-2024 Patient encounter procedure 03/02/2024 3:20 PM EDT Office Visit Neurology [address] [facility] [place] [address] Ab Shaffer Jr., MD [address] [facility] [address] [place] [address] 7 month Follow up vertigo Neurology Comment on above: 7 month Follow up vertigo Start: 03-02-2024 End: 06-01-2024 carBAMazepine free [Mass/volume] in Serum or Plasma CARBAM/TEGRETOL, FREE Lab Routine Generalized convulsive epilepsy (HCC) Expected: 03/02/2024, Expires: 06/01/2024 [facility] Work Phone: Comment on above: Expected: 03/02/2024, Expires: Start: 02-12-2024 Covid-19 Vaccine () Covid-19 Vaccine () [facility] Start: 02-12-2024 Covid-19 Vaccine () Covid-19 Vaccine () [facility] Start: 02-12-2024 Influenza vaccination [facility] Start: 2023 Advance Directive Discussion Advance Directive Discussion [facility] Start: 2023 Behavioral Health Screening Behavioral Health Screening [facility] Start: 2023 Depression Assessment Depression Assessment [facility] Start: 02-11-2023 Covid-19 Vaccine () Covid-19 Vaccine () [facility] Start: 02-11-2023 Influenza vaccination [facility] Start: 12-29-2022 End: 02-28-2023 CBC panel - Blood by Automated count CBC Lab Routine Generalized convulsive epilepsy (HCC) Expected: 12/29/2022, Expires: 02/28/2023 [facility] Work Phone: Comment on above: Expected: 12/29/2022, Expires: 3 Start: 12-29-2022 End: 02-28-2023 Comprehensive metabolic 2000 panel - Serum or Plasma COMP METABOLIC PANEL Lab Routine Generalized convulsive epilepsy (HCC) Expected: 12/29/2022, Expires: 02/28/2023 [facility] Work Phone: Comment on above: Expected: 12/29/2022, Expires: 3 Start: 2022 ADVANCE DIRECTIVE DISCUSSION ADVANCE DIRECTIVE DISCUSSION [facility] Start: 2022 DEPRESSION ASSESSMENT DEPRESSION ASSESSMENT [facility] Start: 05-20-2022 COVID-19 VACCINE (6 - Booster for Moderna series) COVID-19 VACCINE (6 - Booster for Moderna series) [facility] Start: 05-20-2022 COVID-19 VACCINE (6 - Moderna series) COVID-19 VACCINE (6 - Moderna series) [facility] Start: 02-11-2022 Influenza vaccination INFLUENZA (#1) [facility] Start: 01-22-2022 Anes nerve muscle tdn fascia&bursa forearm wrist ANESTH LOWER ARM SURGERY [facility] Work Phone: Start: 01-22-2022 Neuroplasty &/transpos median nrv carpal tunne CARPAL TUNNEL SURGERY [facility] Work Phone: Start: 01-22-2022 Application of ice collar, cap or bag [facility] Work Phone: Start: 01-22-2022 Catheterization of vein [facility] Work Phone: Start: 01-22-2022 Elevation of affected extremity [facility] Work Phone: Start: 01-22-2022 Following clinical pathway protocol [facility] Work Phone: Start: 01-22-2022 Patient discharge [facility] Work Phone: Start: 01-22-2022 Procedure discontinued [facility] Work Phone: Start: 01-22-2022 Taking patient vital signs [facility] Work Phone: Start: 01-22-2022 Vital signs measurements [facility] Work Phone: Start: 01-22-2022 [facility] Work Phone: Start: 01-22-2022 Medication education [facility] Work Phone: Start: 11-28-2021 COVID-19 VACCINE (5 - Booster for Moderna series) COVID-19 VACCINE (5 - Booster for Moderna series) [facility] Start: 10-22-2021 End: 12-22-2021 CBC W Auto Differential panel - Blood CBC + DIFF Lab Routine Generalized convulsive epilepsy (HCC) Expected: 10/22/2021, Expires: 12/22/2021 [facility] Work Phone: Comment on above: Expected: 10/22/2021, Expires: Start: 10-22-2021 End: 12-22-2021 Comprehensive metabolic 2000 panel - Serum or Plasma COMP METABOLIC PANEL Lab Routine Generalized convulsive epilepsy (HCC) Expected: 10/22/2021, Expires: 12/22/2021 [facility] Work Phone: Comment on above: Expected: 10/22/2021, Expires: 2 Start: 09-17-2021 End: 11-17-2021 carBAMazepine free [Mass/volume] in Serum or Plasma CARBAM/TEGRETOL F Lab Routine Generalized convulsive epilepsy (HCC) Expected: 09/17/2021, Expires: 11/17/2021 [facility] Work Phone: Comment on above: Expected: 09/17/2021, Expires: 2 Start: 2021 ADVANCE DIRECTIVE DISCUSSION ADVANCE DIRECTIVE DISCUSSION [facility] Start: 03-28-2021 DIABETES SCREEN DIABETES SCREEN [facility] Start: 03-31-2017 End: 03-31-2017 Mammogram, screening Mammogram, Screening, both breasts [facility] Start: 03-18-2017 End: 03-18-[address] [facility] Start: 2013 RSV Vaccine (1 - 1-dose 75+ series) RSV Vaccine (1 - 1-dose 75+ series) [facility] Start: 05-28-2013 SHINGRIX VACCINE (2 of 3) SHINGRIX VACCINE (2 of 3) [facility] Start: 1998 RSV Vaccine (1 - 1-dose 60+ series) RSV Vaccine (1 - 1-dose 60+ series) [facility] Start: 1956 Anxiety Screening Anxiety Screening [facility] Start: 1956 Depression Screening Depression Screening [facility] Cardiovascular funct ion eval w/tilt table w/mntr TILT TABLE EVALUATION Cardiology Routine Lightheadedness Ordered: 02/21/2023 [facility] Work Phone: Comment on above: Ordered: 02/21/2023 End: 03-22-2024 CTA HEAD WO/W IVCON CTA HEAD WO/W IVCON Radiology Routine Dizziness and giddiness Lightheadedness History of carotid stenosis 1 Occurrences starting 02/21/2023 until 03/22/2024 [facility] Work Phone: Comment on above: 1 Occurrences starting 02/21/2023 until 03/22/2024 End: 03-22-2024 CTA NECK W IVCON CTA NECK W IVCON Radiology Routine Dizziness and giddiness Lightheadedness History of carotid stenosis 1 Occurrences starting 02/21/2023 until 03/22/2024 [facility] Work Phone: Comment on above: 1 Occurrences starting 02/21/2023 until 03/22/2024 End: 02-22-2024 Echocardiography ECHO Cardiology Routine Dizziness and giddiness Lightheadedness 1 Occurrences starting 02/21/2023 until 02/22/2024 [facility] Work Phone: Comment on above: 1 Occurrences starting 02/21/2023 until 02/22/2024 HOME SLEEP APNEA NORMA T (HSAT) HOME SLEEP APNEA TEST (HSAT) Procedures Routine MELA (obstructive sleep apnea) 1 Occurrences starting 12/21/2024 [facility] Work Phone: Comment on above: 1 Occurrences starting 12/21/2024 End: 11-19-2023 Mri brain brain stem w/o w/contrast material MRI BRAIN WO/W IVCON Radiology Routine Dizziness Unsteadiness 1 Occurrences starting 10/20/2022 until 11/19/2023 [facility] Work Phone: Comment on above: 1 Occurrences starting 10/20/2022 until 11/19/2023 End: 11-19-2023 Mri spinal canal cervical w/o contrast matrl MRI CERVICAL SPINE WO IVCON Radiology Routine Dizziness Unsteadiness 1 Occurrences starting 10/20/2022 until 11/19/2023 [facility] Work Phone: Comment on above: 1 Occurrences starting 10/20/2022 until 11/19/2023 NM Heart Views W str ess and W radionuclide IV [facility] OUTSIDE VENDOR CARDI AC OUTPATIENT EXTENDED RHYTHM RECORDING (WITHOUT TELEMETRY) OUTSIDE VENDOR CARDIAC OUTPATIENT EXTENDED RHYTHM RECORDING (WITHOUT TELEMETRY) Holter Routine Lightheadedness Ordered: 02/21/2023 [facility] Work Phone: Comment on above: Ordered: 02/21/2023 Patient referral [facility] Work Phone: PT PLAN OF CARE CERTIFICATION PT PLAN OF CARE CERTIFICATION Procedures Routine Dizziness Unsteadiness Ordered: 12/01/2022 [facility] Comment on above: Ordered: 12/01/2022 [facility] VESTIBULAR TEST BATTERY VESTIBUL AR TEST BATTERY Audiology Routine Dizziness and giddiness Ordered: 02/21/2023 [facility] Work Phone: Comment on above: Ordered: 02/21/2023 [facility] Immunizations Immunization Date Immunization [facility] influenza virus vacc ine, unspecified formulation Ab Shaffer Jr., MD Work Phone: [facility] 03-25-2022 influenza virus vacc ine, unspecified formulation Vicenta Chirinos PA-C Work Phone: [facility] 03-17-2021 influenza, injectabl e, quadrivalent, contains preservative Ab Shaffer Jr., MD Work Phone: [facility] 08-08-2020 COVID-19 vaccine, fu ll dose (MODERNA) Ab Shaffer Jr., MD Work Phone: [facility] 07-11-2020 COVID-19 vaccine, fu ll dose (MODERNA) Ab Shaffer Jr., MD Work Phone: [facility] 03-02-2020 influenza (aIIV4) vaccine, age 65+ yr, quadrivalent, PF (FLUAD QUADRIVALENT) Ab Shaffer Jr., MD Work Phone: [facility] 02-12-2020 pneumococcal polysaccharide vaccine, 23 valent Ab Shaffer Jr., MD Work Phone: [facility] 04-17-2019 influenza, high dose seasonal, preservative-free Ab Shaffer Jr., MD Work Phone: [facility] 02-06-2019 pneumococcal conjuga te vaccine, 13 valent Ab Shaffer Jr., MD Work Phone: [facility] 02-06-2019 tetanus toxoid, redu yo diphtheria toxoid, and acellular pertussis vaccine, adsorbed Ab Shaffer Jr., MD Work Phone: [facility] 03-19-2017 influenza, high dose seasonal, preservative-free Ab Shaffer Jr., MD Work Phone: [facility] Work Phone: 2016 influenza, injectabl e, quadrivalent, contains preservative Ab Shaffer Jr., MD Work Phone: [facility] 05-11-2016 influenza, high dose seasonal, preservative-free Ab Shaffer Jr., MD Work Phone: [facility] 09-22-2015 pneumococcal conjuga te vaccine, 13 valent Ab Shaffer Jr., MD Work Phone: [facility] 04-07-2015 influenza, high dose seasonal, preservative-free Ab Shaffer Jr., MD Work Phone: [facility] 08-21-2013 tetanus toxoid, redu yo diphtheria toxoid, and acellular pertussis vaccine, adsorbed Ab Shaffer Jr., MD Work Phone: [facility] 07-13-2013 influenza virus vacc ine, unspecified formulation Ab Shaffer Jr., MD Work Phone: [facility] Work Phone: 04-02-2013 zoster vaccine, live Ab Shaffer Jr., MD Work Phone: [facility] Work Phone: 03-23-2012 influenza virus vacc ine, whole virus Ab Shaffer Jr., MD Work Phone: [facility] Work Phone: 03-17-2010 influenza virus vacc ine, unspecified formulation Ab Shaffer Jr., MD Work Phone: [facility] 04-12-2006 influenza virus vacc ine, unspecified formulation Ab Shaffer Jr., MD Work Phone: [facility] 09-04-2004 pneumococcal polysaccharide vaccine, 23 valent Ab Shaffer Jr., MD Work Phone: [facility] Work Phone: 04-13-2003 influenza virus vacc ine, unspecified formulation Ab Shaffer Jr., MD Work Phone: [facility] Work Phone: 07-05-2002 diphtheria and tetan us toxoids, adsorbed for pediatric use Ab Shaffer Jr., MD Work Phone: [facility] Work Phone: Payers Date Payer Category Payer Self-pay [id number] 2017 Medicare (Managed Care) NUVIA GARCIA O Member Subscriber Plan / Payer (Effective 2017-Present) Name: Katrina Mancini Relation to Subscriber: Self Name: Katrina Mancini Payer ID: [id number] (NAIC) Group ID: [id number] Type: HMO Address: [address] [id number] 2017 Unknown ANTHTIA HANSEN S AND BLUE SHIELD NUVIA RIBERA O [id number] 2017-Present [phone] [address] [place] [id number] [facility] [id number] 2017 Unknown [id number] 2017 Medicare [id number] 2014 Medicare [id number] 2014 Unknown [id number] 1940 Unknown [id number] [id number]. 2.627 Medicare [id number] Unknown [id number] [id number]. 2.462 Unknown [id number] 2.840.1.159303.3.579. 2.462 Unknown [id number] 2.16840.1.400640.3.579. 2.462 Unknown [id number] 2.16840.1.572368.3.579. 2.462 Unknown [id number] 2.16840.1.354331.3.579. 2.462 Unknown [id number] 2.16840.1.689984.3.579. 2.462 Unknown [id number] 2.16840.1.005983.3.579. 2.462 Unknown [id number] 2.16840.1.598679.3.579. 2.462 Unknown [id number] 2.16840.1.032713.3.579. 2.462 Unknown [id number] 2.16840.1.200355.3.579. 2.462 Unknown [id number] 2.16840.1.638073.3.579. 2.462 Unknown [id number] 2.16.840.1.525567.3.579. 2.462 Unknown [id number] 2.16.840.1.211125.3.579. 2.462 Unknown [id number] 2.16.840.1.695037.3.579. 2.462 Unknown [id number] 2.16.840.1.035488.3.579. 2.462 Unknown [id number] 2.16.840.1.228233.3.579. 2.462 Unknown [id number] 2.16.840.1.552727.3.579. 2.462 Unknown [id number] 2.16.840.1.486290.3.579. 2.462 Social History Date Type Detail Facility Start: 10-20-2022 End: 04-03-2024 Tobacco smoking status NHIS Never smoked tobacco [facility] Start: 06-26-2021 End: 03-02-2024 Alcohol intake Current non-drinker of alcohol (finding) [facility] Start: 1940 Sex Assigned At Not on file [facility] Start: 01-15-2022 End: 04-14-2023 Tobacco smoking status MSIS Unknown if ever smoked [facility] Start: 1940 Sex Assigned At Female [facility] Start: 10-20-2022 Tobacco use and exposure Smoke less tobacco non-user [facility] Start: 10-20-2022 End: 03-02-2024 History of Social function [facility] Start: 10-20-2022 End: 03-02-2024 Tobacco use panel [facility] Start: 05-14-2012 National Score (1-10 0), lower number is lower risk 43 [facility] Sexual Orientation [facility] Start: 10-18-2014 End: 08-28-2024 Sex Female (finding) [facility] Goals Date Patient Goal Desired Activity /State Functional Status Date Assessment Result Facility 12-12-2014 Are you deaf, or do you have serious difficulty hearing No 12/12/2014 4:18 PM EDT Michelle Wooten Ma No [facility] Work Phone: 12-12-2014 Are you blind, or do you have serious difficulty seeing, even when wearing glasses No 12/12/2014 4:18 PM EDT Michelle Wooten Ma No [facility] 12-12-2014 Do you have serious difficulty walking or climbing stairs Yes 12/12/2014 4:18 PM EDT Michelle Wooten Ma Yes [facility] 12-12-2014 Do you have difficul ty dressing or bathing No 12/12/2014 4:18 PM EDT Michelle Wooten Ma [facility] 12-12-2014 Because of a physica l, mental, or emotional condition, do you have difficulty doing errands alone such as visiting a physician's office or shopping Yes 12/12/2014 4:18 PM EDT Michelle Wooten Ma Yes [facility] Mental Status Date Assessment Result Facility 01-22-2022 Cognitive function Voice/Name [facility] Work Phone: 12-12-2014 Because of a physica l, mental, or emotional condition, do you have serious difficulty concentrating, remembering, or making decisions No 12/12/2014 4:18 PM EDT Michelle Wooten Ma [facility] Clinical Notes 07-06-2011 to 01-25-2025 Telephone Encounter - Simran King LPN - 01/25/2025 4:01 PM EDTTelephone Encounter - Simran King LPN - 01/25/2025 4:01 PM EDT Note Date & Type Note Facility 01-25-2025 Telephone encount er Note Prescription Refill Information The patient has been identified by name and date of : Yes Caregiver verified no other encounters exist for this prescription request: Yes Caregiver confirmed with patient/requestor that no other refills are due, in the near future, with this provider at this time: Yes The last office visit in the department: 03/02/24 Does the patient have a future office visit with this provider/department: Yes 03/08/25 Requested Prescriptions Pending Prescriptions Disp Refills verapamil SR (CALAN SR) 240 mg CR tablet [Pharmacy Med Name: VERAPAMIL ER 240 MG TABLET] 90 tablet 1 Sig: TAKE 1 TABLET BY MOUTH EVERY DAY Simran King LPN January 25, 2025 4:01 PM [facility] 01-25-2025 Miscellaneous Notes Formattin g of this note is different from the original. Prescription Refill Information The patient has been identified by name and date of : Yes Caregiver verified no other encounters exist for this prescription request: Yes Caregiver confirmed with patient/requestor that no other refills are due, in the near future, with this provider at this time: Yes The last office visit in the department: 03/02/24 Does the patient have a future office visit with this provider/department: Yes 03/08/25 Requested Prescriptions Pending Prescriptions Disp Refills verapamil SR (CALAN SR) 240 mg CR tablet [Pharmacy Med Name: VERAPAMIL ER 240 MG TABLET] 90 tablet 1 Sig: TAKE 1 TABLET BY MOUTH EVERY DAY Simran King LPN January 25, 2025 4:01 PM documented in this encounter [facility] 01-02-2025 Evaluation note Diagnosis Onset Date Resolution Atherosclerotic vascular disease chronic January 02, 2025 12:49pm 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 January 02, 2025 12:49pm Dyslipidemia chronic January 02 12:49pm Epilepsy chronic January 02 12:49pm Hypertension chronic January 02 12:49pm Interscapular pain chronic December 122024 12:49pm Migraine chronic January 02 12:49pm Supraventricular tachycardia chronic January 02, 2025 12:49pm Vestibular disorder September, chronic January 02, 2025 12:49pm [facility] Work Phone: 1(494) 406-751907-23-2025 Progress [facility] [address] [place] [address] OFFICE VISIT Date of Service: 01/02/25 MR#: [id number] Acct: [id number] Name: KATRINA MANCINI Rep #: [id number] : 1940 Provider: Dr. Shlomo Forrest MD Age/Sex: 84/F Location: [facility] Status: Signed HPI HPI History of Present Illness Details: This lady is here for follow-up visit. Denies any palpitations. According to her, she has been getting some intrascapular discomfort with moderate to strenuous exertion. Not very specific about it. Not sure about the duration. No radiation to the arm neck or jaw. Not sure about the quality of the discomfort. 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 Accompanied by: Self Is patient in pain?: No Allergies codeine Adverse Reaction (Mild, Verified 01/02/25 12:56) Vomiting meperidine HCl (From Demerol) Adverse Reaction (Mild, Verified 01/02/25 12:56) Nausea morphine Adverse Reaction (Mild, Verified 01/02/25 12:56) Vomiting ofloxacin (From Floxin) Adverse Reaction (Mild, Verified 01/02/25 12:56) Other sulfamethoxazole (From Bactrim) Adverse Reaction (Mild, Verified 01/02/25 12:56) Nausea sumatriptan (From Imitrex) Adverse Reaction (Mild, Verified 01/02/25 12:56) Other sumatriptan succinate (From Imitrex) Adverse Reaction (Mild, Verified 01/02/25 12:56) Other trimethoprim (From Bactrim) Adverse Reaction (Mild, Verified 01/02/25 12:56) Nausea Medications ?Medication ?Instructions ?Recorded ?Confirmed ?Type multivitamin 1 cap PO QDAY 06/16/1701/02 History rosuvastatin 10 mg tablet (Crestor) 10 mg PO QDAY 09/2801/02/25 History verapamil 240 mg 24 hr 240 mg PO QDAY 06/16/1712/12 History capsule,extended release (Verelan) acetaminophen 325 mg tablet 650 mg PO DAILY 04/08/23 1 08/01/23 History (Tylenol) cholecalciferol (vitamin D3) 25 1,000 unit PO DAILY 01/02/25 History mcg (1,000 unit) capsule omeprazole 20 mg capsule,delayed 20 mg PO DAILY 01/02/25 History release compress.stocking,knee,reg,med #12 ea 07/10/24 5 Rx calcium 600 mg (as carbonate)-vit 1 tab PO QDAY 01/02/25 History D3 10 mcg (400 unit)-minerals tablet carbamazepine 200 mg tablet See Rx Instructions PO BID 01/02/25 01/02/25 History (Tegretol) Ejection fraction %: 64 Have you fallen in the past year?: Yes [facility] Medical History (Updated 01/02/25 @ 13:[address] Samir Forrest MD) Supraventricular tachycardia Hypertension Vestibular disorder (~09/30/23) Diastolic dysfunction without heart failure Epilepsy Carotid [...] Sleep apnea Oral lichen planus Surgical History (Updated 01/02/25 @ 12:59 by Marcella Singh) H/O radiofrequency ablation (RFA) of nerve of lumbar spine H/O hand surgery S/P cataract extraction History [...] are retired ROS Const Const: Positive for fatigue and weakness; Negative for headache(s) or weight gain ENT ENT: Positive for balance problems; Negative for headache(s), dizziness or Nosebleed/epistaxis Cardio Chest Pain: No Palpitations: No Edema: None Muscle aches with walking: None Resp Respiratory: Positive for SOB with activity; Negative for SOB at rest, SOB orthopnea\SOB lying down, Cough, Coughing up blood/hemoptysis or paroxysmal nocturnal dyspnea GI GI: Negative nausea, vomiting, heartburn, vomiting blood/hematemesis, bright, red blood in stools or black,tarry stools : Negative for hematuria or frequent nighttime urination/ nocturia Musc Musc: Positive for muscle weakness (BLE), joint pain (B/L hip, hx replacements) and balance problems; Negative for muscle aches/ myalgia Skin Skin: Negative non-healing lesions or wounds Neuro Neuro: Positive for weakness; Negative for dizziness, lightheadedness, near syncope, syncope or headache(s) [place] Hematologic/Lymphatic: Positive for easy bruising; Negative for easy bleeding Endo Endo: Positive for fatigue Cardiology Exam Const Appearance: comfortable and no acute distress Nutritional Appearance: well nourished Neck Neck: no JVD Carotids: Negative bruit Chest Auscultation: Bilateral: Clear to Auscultation Cardio Rate: regular rate Rhythm: regular rhythm Heart sounds: S1 normal and S2 normal Neuro General: patient alert, patient awake and patient oriented x3 Extremities Lower Extremity Edema: None: Bilateral Supplemental Info Supplemental Information Labs: HDL Cholesterol 58 mg/dL (40-) Cholesterol 191 mg/dL (<=200) Triglycerides 260 mg/dL (-199) H Diagnostics: No Data to Display Pulmonary: No Data to Display Past Visits: Cardiology Visit 01/02/25 Assessment and Plan Assessment and Plan (1) Interscapular pain: Status: Chronic Plan: Check Lexiscan stress Myoview to rule out ischemia. Also check echocardiogram. (2) Supraventricular tachycardia: Status: Chronic Comment: 6 beat run noted on Holter monitoring. Plan: Verapamil. She primarily uses verapamil for her migraine headaches. (3) Atherosclerotic vascular disease: Status: Chronic Plan: Patient was noted to have atherosclerotic changes of the abdominal aorta on a previous ultrasound of abdomen. For risk factor modification. Start enteric- coated aspirin daily. Significant family history of AAA with rupture. Will repeat ultrasound abdominal aorta. (4) Diastolic dysfunction without heart failure: Status: Chronic Plan: No CHF. Continue verapamil. (5) Hypertension: Status: Chronic Plan: Verapamil. (6) Vestibular disorder: Status: Chronic Plan: As per PCP/ENT. (7) Migraine: Status: Chronic Comment: takes verapimil Plan: Asymptomatic with verapamil per patient. (8) Epilepsy: Status: Chronic Plan: As per neurology. (9) Dyslipidemia: Status: Chronic Plan: On rosuvastatin. Continue to manage as per PCP. Plan Details Follow Up: 6 Months Coding Level of Care Code Off vis,est,level 4 Diagnoses Interscapular pain M54.89 Supraventricular tachycardia I47.10 Atherosclerotic vascular disease I70.90 Diastolic dysfunction without heart failure I51.89 Hypertension I10 Vestibular disorder H81.90 Migraine G43.909 Epilepsy G40.909 Dyslipidemia E78.5 Coding Level of Care Code Off vis,est,level 4 Diagnoses Interscapular pain M54.89 Supraventricular tachycardia I47.10 Atherosclerotic vascular disease I70.90 Diastolic dysfunction without heart failure I51.89 Hypertension I10 Vestibular disorder H81.90 Migraine G43.909 Epilepsy G40.909 Dyslipidemia E78.5 Clinical Quality Measures Falls Risk Screening/Assistive Devices Have you fallen in the past year?: Yes Cardiac Ejection fraction %: 64 01/02/25 1318 > Date _ Samir Forrest MD Cosign Signature: Date (if applicable) CC: ~ [facility]07-23-2025 Progress note Author Samir Forrest [facility] Note Date/Time January 02, 2025 1:[address] [facility] [address] [place] [address]. [address] [place] [address] OFFICE VISIT Date of Service: 01/02/25 MR#: [id number] Acct: [id number] Name: KATRINA MANCINI Rep #: [id number] : 1940 Provider: Dr. Shlomo Forrest MD Age/Sex: 84/F Location: [facility] Status: Signed HPI HPI History of Present Illness Details: This lady is here for follow-up visit. Denies any palpitations. According to her, she has been getting some intrascapular discomfort with moderate to strenuous exertion. Not very specific about it. Not sure about the duration. No radiation to the arm neck or jaw. Not sure about the quality of the discomfort. 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 Accompanied by: Self Is patient in pain?: No Allergies codeine Adverse Reaction (Mild, Verified 01/02/25 12:56) Vomiting meperidine HCl (From Demerol) Adverse Reaction (Mild, Verified 01/02/25 12:56) Nausea morphine Adverse Reaction (Mild, Verified 01/02/25 12:56) Vomiting ofloxacin (From Floxin) Adverse Reaction (Mild, Verified 01/02/25 12:56) Other sulfamethoxazole (From Bactrim) Adverse Reaction (Mild, Verified 01/02/25 12:56) Nausea sumatriptan (From Imitrex) Adverse Reaction (Mild, Verified 01/02/25 12:56) Other sumatriptan succinate (From Imitrex) Adverse Reaction (Mild, Verified 01/02/25 12:56) Other trimethoprim (From Bactrim) Adverse Reaction (Mild, Verified 01/02/25 12:56) Nausea Medications ?Medication ?Instructions ?Recorded ?Confirmed ?Type multivitamin 1 cap PO QDAY 06/16/1701/02 History rosuvastatin 10 mg tablet (Crestor) 10 mg PO QDAY 09/2801/02/25 History verapamil 240 mg 24 hr 240 mg PO QDAY 06/16/1712/12 History capsule,extended release (Verelan) acetaminophen 325 mg tablet 650 mg PO DAILY 04/08/23 1 08/01/23 History (Tylenol) cholecalciferol (vitamin D3) 25 1,000 unit PO DAILY 01/02/25 History mcg (1,000 unit) capsule omeprazole 20 mg capsule,delayed 20 mg PO DAILY 01/02/25 History release compress.stocking,knee,reg,med #12 ea 07/10/24 5 Rx calcium 600 mg (as carbonate)-vit 1 tab PO QDAY 01/02/25 History D3 10 mcg (400 unit)-minerals tablet carbamazepine 200 mg tablet See Rx Instructions PO BID 01/02/25 01/02/25 History (Tegretol) Ejection fraction %: 64 Have you fallen in the past year?: Yes [facility] Medical History (Updated 01/02/25 @ 13:[address] Samir Forrest MD) Supraventricular tachycardia Hypertension Vestibular disorder (~09/30/23) Diastolic dysfunction without heart failure Epilepsy Carotid [...] Sleep apnea Oral lichen planus Surgical History (Updated 01/02/25 @ 12:59 by Marcella Singh) H/O radiofrequency ablation (RFA) of nerve of lumbar spine H/O hand surgery S/P cataract extraction History [...] are retired ROS Const Const: Positive for fatigue and weakness; Negative for headache(s) or weight gain ENT ENT: Positive for balance problems; Negative for headache(s), dizziness or Nosebleed/epistaxis Cardio Chest Pain: No Palpitations: No Edema: None Muscle aches with walking: None Resp Respiratory: Positive for SOB with activity; Negative for SOB at rest, SOB orthopnea\SOB lying down, Cough, Coughing up blood/hemoptysis or paroxysmal nocturnal dyspnea GI GI: Negative nausea, vomiting, heartburn, vomiting blood/hematemesis, bright, red blood in stools or black,tarry stools : Negative for hematuria or frequent nighttime urination/ nocturia Musc Musc: Positive for muscle weakness (BLE), joint pain (B/L hip, hx replacements) and balance problems; Negative for muscle aches/ myalgia Skin Skin: Negative non-healing lesions or wounds Neuro Neuro: Positive for weakness; Negative for dizziness, lightheadedness, near syncope, syncope or headache(s) [place] Hematologic/Lymphatic: Positive for easy bruising; Negative for easy bleeding Endo Endo: Positive for fatigue Cardiology Exam Const Appearance: comfortable and no acute distress Nutritional Appearance: well nourished Neck Neck: no JVD Carotids: Negative bruit Chest Auscultation: Bilateral: Clear to Auscultation Cardio Rate: regular rate Rhythm: regular rhythm Heart sounds: S1 normal and S2 normal Neuro General: patient alert, patient awake and patient oriented x3 Extremities Lower Extremity Edema: None: Bilateral Supplemental Info Supplemental Information Labs: HDL Cholesterol 58 mg/dL (40-) Cholesterol 191 mg/dL (<=200) Triglycerides 260 mg/dL (-199) H Diagnostics: No Data to Display Pulmonary: No Data to Display Past Visits: Cardiology Visit 01/02/25 Assessment and Plan Assessment and Plan (1) Interscapular pain: Status: Chronic Plan: Check Lexiscan stress Myoview to rule out ischemia. Also check echocardiogram. (2) Supraventricular tachycardia: Status: Chronic Comment: 6 beat run noted on Holter monitoring. Plan: Verapamil. She primarily uses verapamil for her migraine headaches. (3) Atherosclerotic vascular disease: Status: Chronic Plan: Patient was noted to have atherosclerotic changes of the abdominal aorta on a previous ultrasound of abdomen. For risk factor modification. Start enteric- coated aspirin daily. Significant family history of AAA with rupture. Will repeat ultrasound abdominal aorta. (4) Diastolic dysfunction without heart failure: Status: Chronic Plan: No CHF. Continue verapamil. (5) Hypertension: Status: Chronic Plan: Verapamil. (6) Vestibular disorder: Status: Chronic Plan: As per PCP/ENT. (7) Migraine: Status: Chronic Comment: takes verapimil Plan: Asymptomatic with verapamil per patient. (8) Epilepsy: Status: Chronic Plan: As per neurology. (9) Dyslipidemia: Status: Chronic Plan: On rosuvastatin. Continue to manage as per PCP. Plan Details Follow Up: 6 Months Coding Level of Care Code Off vis,est,level 4 Diagnoses Interscapular pain M54.89 Supraventricular tachycardia I47.10 Atherosclerotic vascular disease I70.90 Diastolic dysfunction without heart failure I51.89 Hypertension I10 Vestibular disorder H81.90 Migraine G43.909 Epilepsy G40.909 Dyslipidemia E78.5 Coding Level of Care Code Off vis,est,level 4 Diagnoses Interscapular pain M54.89 Supraventricular tachycardia I47.10 Atherosclerotic vascular disease I70.90 Diastolic dysfunction without heart failure I51.89 Hypertension I10 Vestibular disorder H81.90 Migraine G43.909 Epilepsy G40.909 Dyslipidemia E78.5 Clinical Quality Measures Falls Risk Screening/Assistive Devices Have you fallen in the past year?: Yes Cardiac Ejection fraction %: 64 01/02/25 1318 <Electronically signed by Samir Forrest MD> Date _ Samir Forrest MD Cosigner Signature: Date (if applicable) CC: ~ [place] [employer] Work Phone: 1(380) 211-437007-14-2025 Telephone encounter Note* Telephone Encounter - Gina Jernigan LPN - 12/24/2024 4:45 PM EDT Faxed request to Dr Mcclure's office. Gina Jernigan LPN [facility]07-14-2025 Miscellaneous Notes* Telephone Encounter - Gina Jernigan LPN - 12/24/2024 4:45 PM EDT Faxed request to Dr Mcclure's office. Gina Jernigan LPN * Telephone Encounter - Ab Shaffer Jr., MD - 12/24/2024 4:37 PM EDT Will refill now but needs updated CMP and CBC. Please see if PCP office has these from late 2023 [id number]. If not, I can place order. Last Carbamazepine level from late 2023. Ab Shaffer MD * Telephone Encounter - Simran King LPN - 12/24/2024 4:29 PM EDT Prescription Refill Information The patient has been identified by name and date of : Yes Caregiver verified no other encounters exist for this prescription request: Yes Caregiver confirmed with patient/requestor that no other refills are due, in the near future, with this provider at this time: Yes The last office visit in the department: 03/02/24 Does the patient have a future office visit with this provider/department: Yes 03/08/25 Requested Prescriptions Pending Prescriptions Disp Refills carBAMazepine (TEGRETOL) 200 mg tablet [Pharmacy Med Name: CARBAMAZEPINE 200 MG TABLET] 180 tablet 1 Sig: TAKE 1/2 TABLET BY MOUTH IN THE MORNING AND 1 & 1/2 TABLETS IN THE EVENING Simran King LPN December 24, 2024 4:30 PM [facility] Telephone encounter Note * Telephone Encounter - Ab Shaffer Jr., MD - 12/24/2024 4:37 PM EDT Will refill now but needs updated CMP and CBC. Please see if PCP office has these from late 2023 [id number]. If not, I can place order. Last Carbamazepine level from late 2023. Ab Shaffer MD [facility]07-14-2025 Telephone encounter Note* Telephone Encounter - Simran King LPN - 12/24/2024 4:29 PM EDT Prescription Refill Information The patient has been identified by name and date of : Yes Caregiver verified no other encounters exist for this prescription request: Yes Caregiver confirmed with patient/requestor that no other refills are due, in the near future, with this provider at this time: Yes The last office visit in the department: 03/02/24 Does the patient have a future office visit with this provider/department: Yes 03/08/25 Requested Prescriptions Pending Prescriptions Disp Refills carBAMazepine (TEGRETOL) 200 mg tablet [Pharmacy Med Name: CARBAMAZEPINE 200 MG TABLET] 180 tablet 1 Sig: TAKE 1/2 TABLET BY MOUTH IN THE MORNING AND 1 & 1/2 TABLETS IN THE EVENING Simran King LPN December 24, 2024 4:30 PM [facility]07-11-2025 Telephone encounter Note* Telephone Encounter - Ab Shaffer Jr., MD - 12/21/2024 4:54 PM EDT As in the past, would advise pt to have HSAT while using oral appliance. Previously declined further sleep studies including not wanting to be in the sleep lab. If HSAT shows persistence of respiratory events will need adjustment of oral appliance or consideration of other treatment. Note that at prior visits, reported no s/s of MELA. Ab Shaffer MD [facility]07-11-2025 Miscellaneous Notes* Telephone Encounter - Ab Shaffer Jr., MD - 12/21/2024 4:54 PM EDT As in the past, would advise pt to have HSAT while using oral appliance. Previously declined further sleep studies including not wanting to be in the sleep lab. If HSAT shows persistence of respiratory events will need adjustment of oral appliance or consideration of other treatment. Note that at prior visits, reported no s/s of MELA. Ab Shaffer MD * Telephone Encounter - Simran King LPN - 12/20/2024 2:16 PM EDT Records have been received and scanned into Pt chart under sleep study. Pt Sleep apnea is not controlled. Forward to Dr. Mccarthy. Simran King LPN * Telephone Encounter - Melissa Martinez LPN - 12/19/2024 3:59 PM EDT Patient calling Dr Mcclure did an overnight pulse ox test on her and she said her sleep apnea is not controlled. Advised to have Dr shauna fax copy of the results to Dr Shaffer office. Patient is calling office back to ask that it is done. documented in this encounterSal[facility]07-[facility] Telephone encounter Note * Telephone Encounter - Simran King LPN - 12/20/2024 2:16 PM EDT Records have been received and scanned into Pt chart under sleep study. Pt Sleep apnea is not controlled. Forward to Dr. Mccarthy. Simran King LPN [facility]07-09-2025 Telephone encounter Note* Telephone Encounter - Melissa Martinez LPN - 12/19/2024 3:59 PM EDT Patient calling Dr Mcclure did an overnight pulse ox test on her and she said her sleep apnea is not controlled. Advised to have Dr villatoro fax copy of the results to Dr Shaffer office. Patient is calling office back to ask that it is done. [facility]01-07-2025 Telephone encounter Note* Telephone Encounter - Melissa Martinez LPN - 06/19/2024 10:32 AM EST The patient has been identified by name [...] THE EVENING Patient said last refilled end of March and she does her pill box 4 weeks at a time. Melissa Martinez LPN June 19, 2024 10:33 AM [facility]01-07-2025 Miscellaneous Notes* Telephone Encounter - Melissa Martinez LPN - 06/19/2024 10:32 AM EST The patient has been identified by name [...] THE EVENING Patient said last refilled end of March and she does her pill box 4 weeks at a time. Melissa Martinez LPN June 19, 2024 10:33 AM documented in this encounterSalem City Hospital12-12-2024 Evaluation note* Diagnosis Onset Date Resolution Status Admit Date Climacteric acute May 1:08pm Encounter for gynecological examination (general) (routine) with abnormal acute May 24, 2024 1:08pm Endometrial hyperplasia acute D ecember 2023 1:08pm Encounter for routine gynecological examination noneactive Decemb er 2023 1:08pm Lumbar scoliosis acute May 31, 2024 1:24pm Osteopenia determined by x-ray acute May 31, 2024 1:24pm Right hip pain acute May 132023 1:24pm Spinal stenosis of lumbar region with neurogenic claudication acute May 31, 2 024 1:24pm Spondylolisthesis, lumbar region acute May 31, 2 024 1:24pm Bilateral lower extremity edema chronic July 10 1:22pm Diastolic dysfunction withou t heart failure chronic July 10 1:22pm Epilepsy chronic July 10, 2024 1:22pm Fatigue chronic July 10, 2024 1:22pm Hypertension chronic June 1:22pm Migraine chronic July 10, 2024 1:22pm Supraventricular tachycardia chronic July 10, 2024 1:22pm Vestibular disorder September, chronic Marek charlie 2024 1:22pm [facility] Work Phone: 1(847) 710-323109-20-2024 NoteHNO ID: [id number] Author: AB SHAFFER JR, MD Service: ? [...] daily. for pain. Giovany (more content not included)...[facility]09-20-2024 History of Present illness Narrative* Ab Shaffer [...] Wt 58.6 kg (129 lb 3.2 oz) [id number]% BMI 22.53 kg/m GENERAL EXAM: General appearance: [...] 4 - Moderate documented in this encounterCleveland [id number] Telephone encounter Note * Telephone Encounter - Marcella Baugh LPN - 02/20/2024 8:44 AM EDT Prescription [...] office visit with this provider/department: Yes 03/02/24 W Requested Prescriptions Pending Prescriptions Disp Refills carBAMazepine [...] 1 tablet by mouth every day Marcella Baugh LPN February 20, 2024 8:45 AM [facility]09-09-2024 Miscellaneous Notes* Telephone Encounter - Marcella Baugh LPN - 02/20/2024 8:44 AM EDT Prescription Refill Information The patient has been identified by name and date of : Yes Caregiver verified no other encounters exist for this prescription request: Yes Caregiver confirmed with patient/requestor that no other refills are due, in the near future, with this provider at this time: Yes The last office visit in the department: 08/01/23 W Does the patient have a future office visit with this provider/department: Yes 03/02/24 W Requested Prescriptions Pending Prescriptions Disp Refills carBAMazepine [...] 1 tablet by mouth every day Marcella Baugh LPN February 20, 2024 8:45 AM documented in this encounterSalem City Hospital05-07-2024 Telephone encounter Note * Telephone Encounter - Marcella Baugh LPN - 10/18/2023 11:37 AM EDT CHARLES 08/01/23 with [facility] NOV 03/02/24 with [facility] Refill 04/20/23 with qty: 90 and 1 refills Marcella Baugh LPN CHARLES Assessment/Plan ASSESSMENT/PLAN: 1. Dizziness - [...] Sooner follow up prn. Ab Shaffer MD [facility]05-07-2024 Miscellaneous Notes* Telephone Encounter - Marcella Baugh LPN - 10/18/2023 11:37 AM EDT CHARLES 08/01/23 with [facility] NOV 03/02/24 with [facility]N Refill 04/20/23 with qty: 90 and 1 refills Marcella Baugh LPN [facility] Assessment/Plan ASSESSMENT/PLAN: 1. Dizziness - ICD9: 780.4, [...] prn. Ab Shaffer MD documented in this encounterSalem City Hospital02-19-2024 Instructions* Patient Instructions* Ab Shaffer Jr., MD - 08/01/2023 4:42 PM EST 1) Please contact us with your next Na level (phone or mychart). documented in this encounterSalem City Hospital02-19-2024 History of Present illness Narrative* Ab Shaffer [...] a peripheral etiology (L vestibular system) but [place] exam performed today (not noted above) unremarkable. [...] symptoms once per month. Pt did see [facility] for SVT and stated on [...] which included preparing to see the patient, [id number] patient care, completing clinical documentation, obtaining and/or reviewing separately obtained history, performing a medically appropriate examination, counseling and educating the pa tient/family/caregiver, ordering medications, tests, or procedures, and communicating results to the patient/family/caregiver. * Ab Shaffer Jr., MD - 08/01/2023 4:00 PM EST documented in this encounterSalem City Hospital02-12-2024 Miscellaneous Notes* Telephone Encounter - Marcella Baugh LPN - 07/25/2023 12:09 PM EST CHARLES 02/21/23 with [facility]N NOV 08/01/23 with [facility]N Refill 12/29/22 with qty: 180 and 0 refills Marcella Baugh LPN CHARLES Assessment/Plan ASSESSMENT/PLAN: 1. Dizziness and [...] you. Raquel Devries LPN. documented in this encounterSalem City Hospital12-14-2023 Procedure [facility]11-17-2023 History of Present illness Narrative* Marcella Pedro, PT - 04/29/2023 12:03 PM EST Episode Visit Count: 3 Therapist That Will Accept/Oversee The Plan Of Care: Marcella Pedro Start of Care Date: 03/30/23 Onset Date: [...] 04/29/2023 and treatment included: Neuromuscular re-education and Self-prison management. Goals for Episode of Care: created [...] with an (*). Patient education as noted. Self-Prison Management: 1: Encouraged pt. to use SC [...] 1200 Session Stop Time : 1225 Marcella Pedro PT documented in this encounterSalem City Hospital11-08-2023 Miscellaneous Notes* Telephone Encounter - Marcella Baugh LPN - 04/20/2023 10:45 AM EST CHARLES [...] a peripheral etiology (L vestibular system) but [place] exam performed today (not noted above) unremarkable. [...] evaluation. Ab Shaffer MD documented in this encounterSalem City Hospital10-27-2023 History of Present illness Narrative* Marcella Pedro, PT - 04/08/2023 9:53 AM EDT Episode Visit Count: 2 Therapist That Will Accept/Oversee The Plan Of Care: Marcella Pedro Start of Care Date: 03/30/23 Onset Date: [...] and tactile cueing. Patient education as noted. Self-Prison Management: 1: PT encouraged pt. to get [...] 0950 Session Stop Time : 1028 Marcella Pedro PT documented in this encounterSalem City Hospital10-23-2023 Miscellaneous Notes* Telephone Encounter - Marcella Baugh LPN - 04/04/2023 1:01 PM EDT Fax received from [facility] requesting last office note from Dr. Shaffer. Office note dated 02/21/23 faxed to [phone]. Marcella Baugh LPN documented in this encounterSalem City Hospital10-23-2023 Miscellaneous Notes* Telephone Encounter - Dian Devries LPN - 04/04/2023 8:49 AM EDT Phone call placed patient advised (see prior provider encounter) Patient verbalized understanding, agreed with plan of care, reported current Location And Measurement Technician Dr Mata,last OV 01/2023, results ( 11 pages) faxed to [phone]. Dian Devries LPN * Telephone Encounter - Erin [...] patientresponds. Ab Shaffer MD documented in this encounterSalem City Hospital10-18-2023 History of Present illness Narrative* Marcella Pedro, PT - 03/30/2023 11:16 AM EDT Episode Visit Count: 1 Therapist That Will Accept/Oversee The Plan Of Care: Marcella Pedro Start of Care Date: 03/30/23 Onset Date: [...] Planned: 6 Planned Treatment Interventions: Therapeutic exercise (30406), Neuromuscular re- education (63663), Manual therapy (41710), Therapeutic activities (64316), Self- prison management (38080), Gait Training (70345) PLAN FOR NEXT VISIT: FGA as tolerated, [...] Education TREATMENT: PT Treatment Interventions: Neuromuscular Re-Education, Self-Prison Management Evaluation Neuromuscular Re-Education: 1: *Seated Gaze [...] VORx1 seated exercises. Patient education as noted. Self-Prison Management: 1: *UVL handout printed 2: discussed [...] 1115 Session Stop Time : 1200 Marcella Pedro, PT documented in this encounterSalem City Hospital10-06-2023 History of Present illness Narrative* Sharonda Duran, PhD - 03/18/2023 12:30 PM EDT [facility] [place] [facility] Laboratory Vestibular Test Battery Report Name: Katrina Mancini CCF#: [id number] Date of Service: 03/18/2023 Date of : 1940 Age: [age] year old Referred by: Ab Shaffer Jr., MD And is a patient of Magalys Mcclure MD, MD Referred for: Evaluation of the cause of disorder of hearing, tinnitus, or balance. Referral documented: In an order in [facility] Instructions: patient did not read instructions [...] vertical, oblique): normal Cover uncover test: normal Fbfsa-ysuwo-nwrqy test: normal NECK: Cervical rotation right restrictions: [...] VESTIBULAR MEASURES: Videonystagmography Examination (VNG): CPT codes: 22510, 89189, 44047 Description of Procedure: objective assessment of peripheral [...] Vertical Semi-circular Canal BPPV Nystagmus tests: Nystagmus [place]-Hallpike right ear down position: none. Temporal profile: n/a. Symptoms: dizziness. Nystagmus Armando-Hallpike right ear return to sit position: none. Temporal profile: n/a. Symptoms: dizziness. Nystagmus [place]-Hallpike left ear down position: none. Temporal profile: [...] Video Head Impulse Test (VHIT): CPT code: 65912 Description of Procedure: assessment of the angular [...] gain < 0.70) Rotational Chair: CPT code 66691 Description of Procedure: objective assessment of peripheral [...] regarding this information, please contact me at [phone]. Tiffanie Whitman BA (Alex) Doctor of Audiology (AuD) Ballistics Expert This appointment was conducted under the direct supervision of Sharonda Duran, PhD CCC-A I verify that I have reviewed the history, test results, and interpretation for this patient. Sharonda Duran, PhD CCC-A copy to: Ab Shaffer Jr., MD documented in this encounterSalem City Hospital09-29-2023 Miscellaneous Notes* Telephone Encounter - Ab Shaffer [...] voicemail to return call. documented in this encounterSalem City Hospital09-21-2023 History of Present illness Narrative* Jonelle [...] Corrected Disregard results. Specimen incorrectly identified. Comment: [id number] SILVIA Account Credited Corrected on 10/31 AT [...] Corrected Disregard results. Specimen incorrectly identified. Comment: [id number] SILVIA Account Credited Corrected on 10/31 AT [...] 2023 TIME: 2:26 PM documented in this encounterSalem City Hospital09-12-2023 Miscellaneous Notes* Telephone Encounter - Marcella Baugh LPN - 02/22/2023 12:46 PM EDT TC to pt who voiced understanding of below. Pt states she will see PCP next month. Lab results faxed to PCP, per request. Marcella Baugh LPN * Telephone Encounter - Vicenta Chirinos PA-C - 02/22/2023 12:36 PM EDT Patient's sodium is low. Tegretol can lower sodium levels, but will have her follow with PCP for further monitoring and evaluation. documented in this encounterSalem City Hospital09-11-2023 Miscellaneous Notes* Telephone Encounter - Erin Mora OCCA - 02/21/2023 12:13 PM EDT Zio monitor order, patients demographics and face sheet faxed to [phone] as instructed. JESUS Posadas documented in this encounterSalem City Hospital09-11-2023 History of Present illness Narrative* Ab [...] which included preparing to see the patient, [id number] patient care, completing clinical documentation, obtaining and/or reviewing separately obtained history, performing a medically appropriate examination, counseling and educating the pat ient/family/caregiver, ordering medications, tests, or procedures, independently interpreting results (not separately reported), and communicating results to the patient/family/caregiver. documented in this encounterSalem City Hospital08-02-2023 Miscellaneous Notes* Telephone Encounter - Abel Medina RN - 01/12/2023 11:19 AM EDT Faxed MRI brain/cervical spine results from 11/29/[address] Beavers per Fabi request. Faxed results to [phone]. documented in this encounterSalem City Hospital07-19-2023 Miscellaneous Notes* Addendum Note - Vicenta Chirinos PA-C - 12/29/2022 12:18 PM EDTAddended by: VICENTA CHIRINOS on: 12/29/2022 12:18 PM Modules accepted: Orders * Telephone Encounter - Vicenta Chirinos PA-C - 12/29/2022 12:17 PM EDT Will need CBC and CMP before next refill of Tegretol. Refill sent. * Telephone Encounter - Marcella Baugh LPN - 12/29/2022 11:11 AM EDT CHARLES 10/20/22 with MQ NOV 01/12/23 with MQ Refill 09/20/22 with qty: 180 and 0 refills Marcella Baugh LPN CHARLES Assessment/Plan ASSESSMENT/PLAN: 1. Generalized [...] and holding things. Patient has not seen [facility] in some time, does not want further work-up at this time. Patient and agreeable to treatment plan of care at this time, all questions were answered. Discussed concerning signs and symptoms that would warrant evaluation emergency department, patient agrees and understands. Patient to follow-up in 2 months or sooner should any symptoms change or worsen. Vicenta Chirinos PA-C documented in this encounterSalem City Hospital07-07-2023 History of Present illness Narrative* Marcella Pedro, PT - 12/17/2022 2:00 PM EDT Episode Visit Count: 2 Therapist That Will Accept/Oversee The Plan Of Care: Marcella Pedro Start of Care Date: 12/01/22 Onset Date: [...] Major limitation (feels tighter) Lumbar R Side [place]: Produces Lumbar L Side [place]: Moderate limitation Lumbar R Side-Bend: Produces, Major [...] of gait belt. Patient education as noted. Self-Prison Management: 1: *discussed FGA test results and [...] Total Treatment Time Minutes (timed/untimed): 40 Marcella Pedro PT documented in this encounterSalem City Hospital06-21-2023 History of Present illness Narrative* Marcella Pedro PT - 12/01/2022 11:24 AM EDT Episode Visit Count: 1 Therapist That Will Accept/Oversee The Plan Of Care: Marcella Pedro Start of Care Date: 12/01/22 Onset Date: [...] 6 Planned Treatment Interventions: Canalith Repositioning Maneuvers (53638), Gait Training (47722), Self-prison management (90155), Therapeutic activities (79838), Manual therapy (07832), Neuromuscular re-education (51782), Therapeutic exercise (28436) PLAN FOR NEXT VISIT: FGA balance testing, [...] Testing Right Armando-Hallpike: Asymptomatic, No nystagmus Left [place]-Hallpike: No nystagmus, Asymptomatic Right Ear Down: Asymptomatic, [...] States/Identifies, Return Demonstration TREATMENT: PT Treatment Interventions: Self-Prison Management Evaluation Self-Prison Management: 1: *discussed at length BPPV dx, [...] Total Treatment Time Minutes (timed/untimed): 40 Marcella Pedro PT documented in this encounterSalem City Hospital06-20-2023 Miscellaneous Notes* Telephone Encounter - Marcella Baugh LPN - 11/30/2022 12:57 PM EDT TC to pt with results. Pt will call general neurology number to make follow up appointment with [facility]. Marcella Baugh LPN * Telephone Encounter - Vicenta Chirinos [...] evaluation. Consulthas been placed. documented in this encounterSalem City Hospital06-19-2023 History of Present illness Narrative* Rebeca Hooker RT(Quinn) - 11/29/2022 1:40 PM EDT Radiology Service [...] 2022 TIME: 1:51 PM documented in this encounterSalem City Hospital06-01-2023 Miscellaneous Notes* Telephone Encounter - Marcella Baugh LPN - 11/11/2022 10:32 AM EDT Pt has follow up with Vicenta Chirinos January 2023. Marcella Baugh LPN * Telephone Encounter - Ab Shaffer [...] patient. Casandra Major LPN documented in this encounterSalem City Hospital05-10-2023 Instructions* Patient Instructions* Vicenta Chirinos PA-C - 10/20/2022 4:19 PM EDT Continue medication regimen MRI of the brain and neck Vestibular therapy Follow up in 2 months documented in this encounterSalem City Hospital05-10-2023 History of Present illness Narrative* Vicenta [...] dysarthria; comprehension, naming, repetition intact. Short and terminal superintendent memory intact. CN: PERRL, EOMI patient with [...] which included preparing to see the patient, [id number] patient care, completing clinical documentation, obtaining and/or reviewing separately obtained history, performing a medically appropriate examination, counseling and educating the pat ient/family/caregiver, and ordering medications, tests, or procedures. This document has been created with the use of voice recognition technology. It may contain inaccuracies: (e.g. misspellings, inaccurate syntax or word sense) that have escaped review. documented in this encounterSalem City Hospital04-10-2023 Miscellaneous Notes* Telephone Encounter - Marcella Baugh LPN - 09/20/2022 12:06 PM EDT Pt made appt for October with Vicenta Chirinos. Marcella Baugh LPN * Telephone Encounter - Ab Shaffer [...] specialist as above. Follow up 1 year. bA Shaffer MD documented in this encounterSalem City Hospital02-20-2023 Miscellaneous Notes* Telephone Encounter - Michelle [...] oz) Michelle Nowak RN documented in this encounterSalem City Hospital05-12-2022 Miscellaneous Notes* Telephone Encounter - Felisha [...] Thank you, Sugey Julien documented in this encounterSalem City Hospital04-07-2022 Miscellaneous Notes* Telephone Encounter - Virginie [...] patient. Virginie Salcido LPN documented in this encounterSalem City Hospital01-24-2012 History of Past illness Narrative* Problem Noted Date Resolved Date Postmenopausal bleeding 07/06/2011 03/14/20 12 Urgency of urination 05/12/2009 05/29/2010 SOMNOLENCE 01/03/2006 03/17/2016 HYPERLIPIDEMIA NEC/NOS 02/02/2005 6 documented as of this encounter (statuses as of 09/17/2021) [facility] of [facility] illness Narrative* Problem Noted Date Resolved Date Postmenopausal bleeding 07/06/2011 03/14/20 12 Urgency of urination 05/12/2009 05/29/2010 SOMNOLENCE 01/03/2006 03/17/2016 HYPERLIPIDEMIA NEC/NOS 02/02/2005 6 documented as of this encounter (statuses as of 10/22/2021) [facility] of [facility] illness Narrative* Problem Noted Date Resolved Date Postmenopausal bleeding 07/06/2011 03/14/20 12 Urgency of urination 05/12/2009 05/29/2010 SOMNOLENCE 01/03/2006 03/17/2016 HYPERLIPIDEMIA NEC/NOS 02/02/2005 6 documented as of this encounter (statuses as of 06/17/2022) [facility] of [facility] Narrative* Problem Noted Date Resolved Date Postmenopausal bleeding 07/06/2011 03/14/20 12 Urgency of urination 05/12/2009 05/29/2010 SOMNOLENCE 01/03/2006 03/17/2016 HYPERLIPIDEMIA NEC/NOS 02/02/2005 6 documented as of this encounter (statuses as of 08/03/2022) [facility] of [facility] Narrative* Problem Noted Date Resolved Date Postmenopausal bleeding 07/06/2011 03/14/20 12 Urgency of urination 05/12/2009 05/29/2010 SOMNOLENCE 01/03/2006 03/17/2016 HYPERLIPIDEMIA NEC/NOS 02/02/2005 6 documented as of this encounter (statuses as of 09/20/2022) [facility] of [facility] Narrative* Problem Noted Date Resolved Date Postmenopausal bleeding 07/06/2011 03/14/20 12 Urgency of urination 05/12/2009 05/29/2010 SOMNOLENCE 01/03/2006 03/17/2016 HYPERLIPIDEMIA NEC/NOS 02/02/2005 6 documented as of this encounter (statuses as of 10/21/2022) [facility] of [facility] Narrative* Problem Noted Date Resolved Date Postmenopausal bleeding 07/06/2011 03/14/20 12 Urgency of urination 05/12/2009 05/29/2010 SOMNOLENCE 01/03/2006 03/17/2016 HYPERLIPIDEMIA NEC/NOS 02/02/2005 6 documented as of this encounter (statuses as of 11/11/2022) [facility] Narrative* Problem Noted Date Resolved Date Postmenopausal bleeding 07/06/2011 03/14/20 12 Urgency of urination 05/12/2009 05/29/2010 SOMNOLENCE 01/03/2006 03/17/2016 HYPERLIPIDEMIA NEC/NOS 02/02/2005 6 documented as of this encounter (statuses as of 11/30/2022) [facility] of [facility] Narrative* Problem Noted Date Resolved Date Postmenopausal bleeding 07/06/2011 03/14/20 12 Urgency of urination 05/12/2009 05/29/2010 SOMNOLENCE 01/03/2006 03/17/2016 HYPERLIPIDEMIA NEC/NOS 02/02/2005 6 documented as of this encounter (statuses as of 12/01/2022) [address]24-2012 History of Past illness Narrative* Problem Noted Date Resolved Date Postmenopausal bleeding 07/06/2011 03/14/20 Urgency of urination 05/12/2009 05/29/2010 SOMNOLENCE 01/03/2006 03/17/2016 HYPERLIPIDEMIA NEC/NOS 02/02/2005 6 documented as of this encounter (statuses as of 12/17/2022) [address]24-2012 History of Past illness Narrative* Problem Noted Date Diagnosed Date Resolved Date Postmenopausal bleeding 07/06/201107/2011 Urgency of urination 05/12/2009 010 SOMNOLENCE 01/03/2006 03/17/2016 HYPERLIPIDEMIA NEC/NOS 02/02/200508/25 documented as of this encounter (statuses as of 12/29/2022) [address]24-2012 History of Past illness Narrative* Problem Noted Date Diagnosed Date Resolved Date Postmenopausal bleeding 07/06/201107/2011 Urgency of urination 05/12/2009 010 SOMNOLENCE 01/03/2006 03/17/2016 HYPERLIPIDEMIA NEC/NOS 02/02/200508/25 documented as of this encounter (statuses as of 01/12/2023) [facility]01-24-2012 History of Past illness Narrative* Problem Noted Date Diagnosed Date Resolved Date Postmenopausal bleeding 07/06/201107/2011 Urgency of urination 05/12/2009 010 SOMNOLENCE 01/03/2006 03/17/2016 HYPERLIPIDEMIA NEC/NOS 02/02/200508/25 documented as of this encounter (statuses as of 02/21/2023) [address]24-2012 History of Past illness Narrative* Problem Noted Date Diagnosed Date Resolved Date Postmenopausal bleeding 07/06/201107/2011 Urgency of urination 05/12/2009 010 SOMNOLENCE 01/03/2006 03/17/2016 HYPERLIPIDEMIA NEC/NOS 02/02/200508/25 documented as of this encounter (statuses as of 02/22/2023) [address]24-2012 History of Past illness Narrative* Problem Noted Date Diagnosed Date Resolved Date Postmenopausal bleeding 07/06/201107/2011 Urgency of urination 05/12/2009 010 SOMNOLENCE 01/03/2006 03/17/2016 HYPERLIPIDEMIA NEC/NOS 02/02/200508/25 documented as of this encounter (statuses as of 02/22/2023) [address]24-2012 History of Past illness Narrative* Problem Noted Date Diagnosed Date Resolved Date Postmenopausal bleeding 07/06/201107/2011 Urgency of urination 05/12/2009 010 SOMNOLENCE 01/03/2006 03/17/2016 HYPERLIPIDEMIA NEC/NOS 02/02/200508/25 documented as of this encounter (statuses as of 03/12/2023) [facility] History of Past illness Narrative* Problem Noted Date Diagnosed Date Resolved Date Postmenopausal bleeding 07/06/201107/2011 Urgency of urination 05/12/2009 010 SOMNOLENCE 01/03/2006 03/17/2016 HYPERLIPIDEMIA NEC/NOS 02/02/200508/25 documented as of this encounter (statuses as of 03/19/2023) [address]24-2012 History of Past illness Narrative* Problem Noted Date Diagnosed Date Resolved Date Postmenopausal bleeding 07/06/201107/2011 Urgency of urination 05/12/2009 010 SOMNOLENCE 01/03/2006 03/17/2016 HYPERLIPIDEMIA NEC/NOS 02/02/200508/25 documented as of this encounter (statuses as of 03/30/2023) [address]24-2012 History of Past illness Narrative* Problem Noted Date Diagnosed Date Resolved Date Postmenopausal bleeding 07/06/201107/2011 Urgency of urination 05/12/2009 010 SOMNOLENCE 01/03/2006 03/17/2016 HYPERLIPIDEMIA NEC/NOS 02/02/200508/25 documented as of this encounter (statuses as of 04/04/2023) [facility] History of Past illness Narrative* Problem Noted Date Diagnosed Date Resolved Date Postmenopausal bleeding 07/06/201107/2011 Urgency of urination 05/12/2009 010 SOMNOLENCE 01/03/2006 03/17/2016 HYPERLIPIDEMIA NEC/NOS 02/02/200508/25 documented as of this encounter (statuses as of 04/08/2023) [address]24-2012 History of Past illness Narrative* Problem Noted Date Diagnosed Date Resolved Date Postmenopausal bleeding 07/06/201107/2011 Urgency of urination 05/12/2009 010 SOMNOLENCE 01/03/2006 03/17/2016 HYPERLIPIDEMIA NEC/NOS 02/02/200508/25 documented as of this encounter (statuses as of 04/15/2023) [facility] History of Past illness Narrative* Problem Noted Date Diagnosed Date Resolved Date Postmenopausal bleeding 07/06/201107/2011 Urgency of urination 05/12/2009 010 SOMNOLENCE 01/03/2006 03/17/2016 HYPERLIPIDEMIA NEC/NOS 02/02/200508/25 documented as of this encounter (statuses as of 04/15/2023) [facility] History of Past illness Narrative* Problem Noted Date Diagnosed Date Resolved Date Postmenopausal bleeding 07/06/201107/2011 Urgency of urination 05/12/2009 010 SOMNOLENCE 01/03/2006 03/17/2016 HYPERLIPIDEMIA NEC/NOS 02/02/200508/25 documented as of this encounter (statuses as of 04/15/2023) [facility] History of Past illness Narrative* Problem Noted Date Diagnosed Date Resolved Date Postmenopausal bleeding 07/06/201107/2011 Urgency of urination 05/12/2009 010 SOMNOLENCE 01/03/2006 03/17/2016 HYPERLIPIDEMIA NEC/NOS 02/02/200508/25 documented as of this encounter (statuses as of 04/21/2023) [facility] History of Past illness Narrative* Problem Noted Date Diagnosed Date Resolved Date Postmenopausal bleeding 07/06/201107/2011 Urgency of urination 05/12/2009 010 SOMNOLENCE 01/03/2006 03/17/2016 HYPERLIPIDEMIA NEC/NOS 02/02/200508/25 documented as of this encounter (statuses as of 04/29/2023) [facility] History of Past illness Narrative* Problem Noted Date Diagnosed Date Resolved Date Postmenopausal bleeding 07/06/201107/2011 Urgency of urination 05/12/2009 010 SOMNOLENCE 01/03/2006 03/17/2016 HYPERLIPIDEMIA NEC/NOS 02/02/200508/25 documented as of this encounter (statuses as of 07/26/2023) [facility] History of Past illness Narrative* Problem Noted Date Diagnosed Date Resolved Date Postmenopausal bleeding 07/06/201107/2011 Urgency of urination 05/12/2009 010 SOMNOLENCE 01/03/2006 03/17/2016 HYPERLIPIDEMIA NEC/NOS 02/02/200508/25 documented as of this encounter (statuses as of 08/01/2023) [facility] No data available for this section [facility] Evaluation note* Diagnosis 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 documented in this encounter [facility] note* Diagnosis 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 documented in this encounter [facility] noteNo assessment information availableWMagruder Hospital Work Phone: Evaluation note* Diagnosis Onset Date Resolution Status Orthopedic aftercare noneact jessenia [facility] Work Phone: Evaluation note* Diagnosis Onset Date Resolution Status Orthopedic aftercare noneact jessenia Encounter for routine gynecological examination noneactive [facility] Work Phone: Evaluation note* Diagnosis Onset Date Resolution Status Encounter for routine gynecological examination noneactive [facility] Work Phone: Evaluation note* Diagnosis Generalized convulsive epilepsy (HCC) Generalized convulsive epilepsy without mention of intractable epilepsy documented in this encounter [facility] note* Diagnosis Generalized convulsive epilepsy (HCC)- Primary [...] Carpal tunnel syndrome [facility] Cervical stenosis of spinal canal- Primary Spinal stenosis in cervical region [facility] Unsteadiness- Primary Abnormality of gait Dizziness Dizziness and giddiness documented [facility]* Diagnosis Dizziness- Primary Dizziness and giddiness Unsteadiness Abnormality of gait [facility]* Diagnosis Generalized convulsive epilepsy (HCC) Generalized convulsive epilepsy without mention of intractable epilepsy [facility]* Diagnosis Dizziness and giddiness- Primary Lightheadedness [...] of circulatory system [facility]* Diagnosis Dizziness- Primary Dizziness and giddiness Vestibular dysfunction, right Lightheaded Dizziness and giddiness Lightheadedness Dizziness and giddiness [facility]* Diagnosis Dizziness and giddiness- Primary Lightheaded Dizziness and giddiness Lightheadedness Dizziness and giddiness [facility]* Diagnosis Onset Date Resolution Status Climacteric acute Postmenopausal bleeding [facility] Work Phone: Evaluation note* Diagnosis Dizziness and giddiness- Primary Lightheaded Dizziness and giddiness Lightheadedness Dizziness and giddiness [facility]* Diagnosis Dizziness Dizziness and giddiness Unsteadiness Abnormality of gait Lightheaded Dizziness and giddiness Lightheadedness Dizziness and giddiness [facility]* Diagnosis Dizziness Dizziness and giddiness Unsteadiness Abnormality of gait Lightheaded Dizziness and giddiness Lightheadedness Dizziness and giddiness [facility]* Diagnosis Dizziness and giddiness Lightheadedness Dizziness and giddiness History of carotid stenosis Personal history of other diseases of circulatory system Lightheaded Dizziness and giddiness Lightheadedness Dizziness and giddiness [facility]* Diagnosis Onset Date Resolution Status 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 Work Phone: Evaluation note* Diagnosis Dizziness and giddiness- Primary [facility]* Diagnosis Generalized convulsive epilepsy (HCC) Generalized convulsive epilepsy without mention of intractable epilepsy [facility]* Diagnosis Dizziness- Primary Dizziness and giddiness Generalized convulsive epilepsy (HCC) Generalized convulsive epilepsy without mention of intractable epilepsy MELA (obstructive sleep apnea) Obstructive sleep apnea (adult) (pediatric) Migraine without aura and without status migrainosus, not intractable Migraine without aura, without mention of intractable migraine without mention of status migrainosus Hyponatremia Hyposmolality and/or hyponatremia [facility]* Diagnosis Onset Date Resolution Status Climacteric acute [id number] acute Endometrial hyperplasia acva e [facility] Work Phone: Evaluation note* Diagnosis Generalized convulsive epilepsy (HCC) Generalized convulsive epilepsy without mention of intractable epilepsy [facility]* Diagnosis 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 Hyponatremia Hyposmolality and/or hyponatremia MELA (obstructive sleep apnea) Obstructive sleep apnea (adult) (pediatric) Migraine without aura and without status migrainosus, not intractable Migraine without aura, without mention of intractable migraine without mention of status migrainosus Dizziness Dizziness and giddiness documented [facility]* Diagnosis Generalized convulsive epilepsy (HCC) Generalized convulsive epilepsy without mention of intractable epilepsy documented in this encounter [facility] note* Diagnosis MELA (obstructive sleep apnea)- Primary Obstructive sleep apnea (adult) (pediatric) documented in this encounter [facility] note* Diagnosis Generalized convulsive epilepsy (HCC) Generalized convulsive epilepsy without mention of intractable epilepsy documented in this encounter [facility] note* Diagnosis Migraine without aura and without status migrainosus, not intractable Migraine without aura, without mention of intractable migraine without mention of status migrainosus documented in this encounter [facility] Discharge instructions No data available for this section [facility] Progress note No data available for this section [facility] Reason for referral (narrative)No reason for referral information availableWMagruder Hospital Work Phone: Summary Purpose Family History No Family History Records Found Relationship Condition Age at Onset Recorded Date/T car mother Cardiac disease Unknown mother Hypertension Unknown Relationship Condition Age at Onset Recorded Date/T car mother Cardiac disease Unknown Hypertension Unknown Coronary artery disease Unknown brother Ruptured abdominal aortic aneurysm (AAA) Unknown sister Ruptured abdominal aortic aneurysm (AAA) Unknown Advance Directives No Advanced Directives Records Found Advance Directive Response Recorded Date/ Time Name of Medical Power of Mold Puller Daughter January 15, 2022 8:11am Living Will Yes January 15, 2022 8:11am Power of Mold Puller Yes January 15 8:11am Advance Directive Response Recorded Date/ Time Name of Medical Power of Mold Puller Daughter January 15, 2022 7:11am Living Will Yes January 15, 2022 7:11am Power of Mold Puller Yes January 15 7:11am Advance Directive Response Recorded Date/ Time Living Will Yes January 15, 2022 7:11am Power of Mold Puller Yes January 15 7:11am Advance Directive Response Recorded Date/ Time Living Will Yes January 15, 2022 8:11am Power of Mold Puller Yes January 15 8:11am Advance Directive Response Recorded Date/ Time Living Will Yes March 23 1:54pm Power of Mold Puller Yes March 23, 2023 1:54pm Advance Directive Response Recorded Date/ Time Living Will Yes March 23 12:54pm Power of Mold Puller Yes March 23, 2023 12:54pm Chief Complaint [...] CARPAL TUNNEL RELEASE left wrist OSTEO Annual (PET SITTER) SCREENING Reason for Visit Orthopedic aftercare Encounter for routine gynecological examination Chief Complaint Annual (PET SITTER) SCREENING Reason for Visit Encounter for routin [...] BIOPSY ABN HOLTER (SHAFFER) EORDERS-2 ORDERING DRS Reason for Visit Diastolic [...] post progesterone AUB Reason for Visit Climacteric [id number] Endometrial hyperplasia Chief Complaint 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, 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 ORDER AUB PMB f/u ENDOMETRIAL BIOPSY ABN HOLTER (SHAFFER) EORDERS-2 ORDERING DRS SCREENING DYSPHAGIA Reason for Visit Diastolic dysfunctio n without heart failure Epilepsy Hypertension Migraine Supraventricular tachycardia Unsteadiness Vestibular disorder Chief Complaint Admit Date pain- LEFT HIP/ LEFT KNEE May 15, 2024 3:07pm Annual (PET SITTER) May 24, 2024 1:08pm LUMBAR SPINE May [...] Vestibular disorder July 10, 2024 1 :22pm Chief Complaint Admit Date EORDERS November 20, 2024 2:14 pm Chief Complaint Admit Date EORDERS November 20, 2024 2:14 pm 6 M FU January 02, 2025 12:4 9pm Chief Complaint Admit Date EORDERS November 20, 2024 2:14 pm 6 M FU January 02, 2025 12:4 9pm R/O AAA, FAMILY HX AAA January 21, 2025 8:35am Amb Documentation January 21, 2025 11 :25am Reason for Visit Admit Date Atherosclerotic vascular disease January 022024 12:49pm Diastolic dysfunction without heart fail ure January 02, 2025 12:49pm Dyslipidemia January 02, 2025 12:4 9pm Epilepsy January 02, 2025 12:4 9pm Hypertension January 02, 2025 12:4 9pm Interscapular pain January 02, 2025 12:4 9pm Migraine January 02, 2025 12:4 9pm Supraventricular tachycardia January 02, 2025 12:49pm Vestibular disorder January 02, 2025 12:4 9pm Reason for Referral Specialty Diagnoses / Procedures Referred By Contac t Referred To Contact MR IMAGING Diagnoses Dizziness Unsteadiness Procedures MRI CERVICAL SPINE WO IVCON MRI SPINAL CANAL CERVICAL W/O CONTRAST MATRL Vicenta Chirinos PA-C [address] [place] [address] Mr Imaging Referral ID Status Reason Start Date Expiration Date Visits Requested Visits Authorized [id number] Authorized Auto-Generat ed Referral 10/20/2022 11/19/2023 1 1 Specialty Diagnoses / Procedures Referred By Contac t Referred To Contact MR IMAGING Diagnoses Dizziness Unsteadiness Procedures MRI BRAIN WO/W IVCON MRI BRAIN BRAIN STEM W/O W/CONTRAST MATERIAL Vicenta Chirinos PA-C [address] [place] [address] Mr Imaging Referral ID Status Reason Start Date Expiration Date Visits Requested Visits Authorized [id number] Authorized Auto-Generat ed Referral 10/20/2022 11/19/2023 1 1 Specialty Diagnoses / Procedures Referred By Contac t Referred To Contact Neurosurgery Diagnoses Cervical stenosis of spinal canal Procedures CONSULT TO NEUROSURGERY OFFICE/OUTPATIENT [facility] 60-74 MINUTES Vicenta Chirinos PA-C [address] [place] [address] Referral ID Status Reason Start Date Expiration Date Visits Requested Visits Authorized [id number] Pending Review PCP Requested Referral 11/30/2022 11/30/2023 1 1 Specialty Diagnoses / Procedures Referred By Contac t Referred To Contact [facility] Diagnoses Dizziness Unsteadiness Procedures PT REHAB FOLLOW UP ORDER THERAPEUTIC EXERCISES RE, EA 15 MIN. Marcella Pedro, PT [facility] [place] [address] [place] [address] Referral ID Status Reason Start Date Expiration Date Visits Requested Visits Authorized [id number] Pending Review PCP Requested Referral Auto-Generate d Referral 12/01/2022 03/01/2023 1 1 Specialty Diagnoses / Procedures Referred By Contac t Referred To Contact CT IMAGING Diagnoses Dizziness and giddiness Lightheadedness History of carotid stenosis Procedures CTA NECK W IVCON CT ANGIOGRAPHY NECK W/CONTRAST/NONCONTRAST Ab Shaffer Jr., MD [address] [facility] [address] [place] [address] [place] [address] Referral ID Status Reason Start Date Expiration Date Visits Requested Visits Authorized [id number] Authorized Auto-Generat ed Referral 02/21/2023 03/22/2024 1 1 Specialty Diagnoses / Procedures Referred By Contac t Referred To Contact CT IMAGING Diagnoses Dizziness and giddiness Lightheadedness History of carotid stenosis Procedures CTA HEAD WO/W IVCON CT ANGIOGRAPHY HEAD W/CONTRAST/NONCONTRAST Ab Shaffer Jr., MD [address] [place] [address] [address] [place] [address] Ct Imaging [facility] Referral ID Status Reason Start Date Expiration Date Visits Requested Visits Authorized [id number] Authorized Auto-Generat ed Referral 02/21/2023 03/22/2024 1 1 Specialty Diagnoses / Procedures Referred By Contac t Referred To Contact [facility] Diagnoses Dizziness and giddiness Lightheadedness Procedures ECHO ECHO TTHRC R-T 2D W/WOM-MODE COMPL SPEC&COLR D Ab Shaffer Jr., MD [address] [place] [address] [address] [place] [address] [facility] [place] [address] [place], [place] [id number] Referral ID Status Reason Start Date Expiration Date Visits Requested Visits Authorized [id number] Authorized Auto-Generat ed Referral 02/21/2023 02/21/2024 1 1 Specialty Diagnoses / Procedures Referred By Contac t Referred To Contact MR IMAGING Diagnoses Dizziness Unsteadiness Procedures MRI BRAIN WO/W IVCON MRI BRAIN BRAIN STEM W/O W/CONTRAST MATERIAL Vicenta Chirinos PA-C [address] [place] [address] [place] [address] Referral ID Status Reason Start Date Expiration Date V isits Requested Visits Authorized [id number] Closed Auto-Generate d Referral 10/20/2022 11/19/2023 1 1 Specialty Diagnoses / Procedures Referred By Ho keller Referred To Contact MR IMAGING Diagnoses Dizziness Unsteadiness Procedures MRI CERVICAL SPINE WO IVCON MRI SPINAL CANAL CERVICAL W/O CONTRAST Vicenta Ly PA-C [address] [place] [address] [place] [address] Referral ID Status Reason Start Date Expiration Date V isits Requested Visits Authorized [id number] Closed Auto-Generate d Referral 10/20/2022 11/19/2023 1 1 Referral ID Status Reason Start Date Expiration Date V isits Requested Visits Authorized [id number] Closed Auto-Generate d Referral 02/21/2023 03/22/2024 1 1 Referral ID Status Reason Start Date Expiration Date V isits Requested Visits Authorized [id number] Closed Auto-Generate d Referral 02/21/2023 03/22/2024 1 1 Additional Source Comments INFORMATION SOURCE (unrecogn ized section and content) DATE CREATED AUTHOR 06/11/2019 [facility] ([place]) DATE CREATED AUTHOR AUTHOR'S ORGANIZ ATION 05/13/2020 [facility] DATE CREATED AUTHOR AUTHOR'S ORGANIZ ATION 06/02/2021 [facility] DATE CREATED AUTHOR AUTHOR'S ORGANIZ ATION 08/10/2024 [facility] DATE CREATED AUTHOR AUTHOR'S ORGANIZ ATION 12/26/2024 [facility] DATE CREATED AUTHOR AUTHOR'S ORGANIZ ATION 01/28/2025 [facility] Source Comments (unrecognize d section and content) In the event this informatio n is protected by the Federal Confidentiality of Alcohol and Drug Abuse Patient Records regulations: The Federal rules restrict any use of the information to criminally investigate or prosecute any alcohol or drug abuse patient.[facility] the event this information is protected by the Federal Confidentiality of Alcohol and Drug Abuse Patient Records regulations: The Federal rules restrict any use of the information to criminally investigate or prosecute any alcohol or drug abuse patient.[facility] the event this information is protected by the Federal Confidentiality of Alcohol and Drug Abuse Patient Records regulations: The Federal rules restrict any use of the information to criminally investigate or prosecute any alcohol or drug abuse patient.[facility] the event this information is protected by the Federal Confidentiality of Alcohol and Drug Abuse Patient Records regulations: The Federal rules restrict any use of the information to criminally investigate or prosecute any alcohol or drug abuse patient.[facility] the event this information is protected by the Federal Confidentiality of Alcohol and Drug Abuse Patient Records regulations: The Federal rules restrict any use of the information to criminally investigate or prosecute any alcohol or drug abuse patient.[facility] the event this information is protected by the Federal Confidentiality of Alcohol and Drug Abuse Patient Records regulations: The Federal rules restrict any use of the information to criminally investigate or prosecute any alcohol or drug abuse patient.[facility] the event this information is protected by the Federal Confidentiality of Alcohol and Drug Abuse Patient Records regulations: The Federal rules restrict any use of the information to criminally investigate or prosecute any alcohol or drug abuse patient.[facility] the event this information is protected by the Federal Confidentiality of Alcohol and Drug Abuse Patient Records regulations: The Federal rules restrict any use of the information to criminally investigate or prosecute any alcohol or drug abuse patient.[facility] the event this information is protected by the Federal Confidentiality of Alcohol and Drug Abuse Patient Records regulations: The Federal rules restrict any use of the information to criminally investigate or prosecute any alcohol or drug abuse patient.[facility] the event this information is protected by the Federal Confidentiality of Alcohol and Drug Abuse Patient Records regulations: The Federal rules restrict any use of the information to criminally investigate or prosecute any alcohol or drug abuse patient.[facility] the event this information is protected by the Federal Confidentiality of Alcohol and Drug Abuse Patient Records regulations: The Federal rules restrict any use of the information to criminally investigate or prosecute any alcohol or drug abuse patient.[facility] the event this information is protected by the Federal Confidentiality of Alcohol and Drug Abuse Patient Records regulations: The Federal rules restrict any use of the information to criminally investigate or prosecute any alcohol or drug abuse patient.[facility] the event this information is protected by the Federal Confidentiality of Alcohol and Drug Abuse Patient Records regulations: The Federal rules restrict any use of the information to criminally investigate or prosecute any alcohol or drug abuse patient.[facility] the event this information is protected by the Federal Confidentiality of Alcohol and Drug Abuse Patient Records regulations: The Federal rules restrict any use of the information to criminally investigate or prosecute any alcohol or drug abuse patient.[facility] the event this information is protected by the Federal Confidentiality of Alcohol and Drug Abuse Patient Records regulations: The Federal rules restrict any use of the information to criminally investigate or prosecute any alcohol or drug abuse patient.[facility]In the event this information is protected by the Federal Confidentiality of Alcohol and Drug Abuse Patient Records regulations: The Federal rules restrict any use of the information to criminally investigate or prosecute any alcohol or drug abuse patient.[facility]In the event this information is protected by the Federal Confidentiality of Alcohol and Drug Abuse Patient Records regulations: The Federal rules restrict any use of the information to criminally investigate or prosecute any alcohol or drug abuse patient.[facility] the event this information is protected by the Federal Confidentiality of Alcohol and Drug Abuse Patient Records regulations: The Federal rules restrict any use of the information to criminally investigate or prosecute any alcohol or drug abuse patient.[facility]In the event this information is protected by the Federal Confidentiality of Alcohol and Drug Abuse Patient Records regulations: The Federal rules restrict any use of the information to criminally investigate or prosecute any alcohol or drug abuse patient.[facility] the event this information is protected by the Federal Confidentiality of Alcohol and Drug Abuse Patient Records regulations: The Federal rules restrict any use of the information to criminally investigate or prosecute any alcohol or drug abuse patient.[facility]In the event this information is protected by the Federal Confidentiality of Alcohol and Drug Abuse Patient Records regulations: The Federal rules restrict any use of the information to criminally investigate or prosecute any alcohol or drug abuse patient.[facility] the event this information is protected by the Federal Confidentiality of Alcohol and Drug Abuse Patient Records regulations: The Federal rules restrict any use of the information to criminally investigate or prosecute any alcohol or drug abuse patient.[facility]In the event this information is protected by the Federal Confidentiality of Alcohol and Drug Abuse Patient Records regulations: The Federal rules restrict any use of the information to criminally investigate or prosecute any alcohol or drug abuse patient.[facility]In the event this information is protected by the Federal Confidentiality of Alcohol and Drug Abuse Patient Records regulations: The Federal rules restrict any use of the information to criminally investigate or prosecute any alcohol or drug abuse patient.[facility]In the event this information is protected by the Federal Confidentiality of Alcohol and Drug Abuse Patient Records regulations: The Federal rules restrict any use of the information to criminally investigate or prosecute any alcohol or drug abuse patient.[facility]In the event this information is protected by the Federal Confidentiality of Alcohol and Drug Abuse Patient Records regulations: The Federal rules restrict any use of the information to criminally investigate or prosecute any alcohol or drug abuse patient.[facility]In the event this information is protected by the Federal Confidentiality of Alcohol and Drug Abuse Patient Records regulations: The Federal rules restrict any use of the information to criminally investigate or prosecute any alcohol or drug abuse patient.[facility]In the event this information is protected by the Federal Confidentiality of Alcohol and Drug Abuse Patient Records regulations: The Federal rules restrict any use of the information to criminally investigate or prosecute any alcohol or drug abuse patient.[facility]In the event this information is protected by the Federal Confidentiality of Alcohol and Drug Abuse Patient Records regulations: The Federal rules restrict any use of the information to criminally investigate or prosecute any alcohol or drug abuse patient.[facility]In the event this information is protected by the Federal Confidentiality of Alcohol and Drug Abuse Patient Records regulations: The Federal rules restrict any use of the information to criminally investigate or prosecute any alcohol or drug abuse patient.[facility]In the event this information is protected by the Federal Confidentiality of Alcohol and Drug Abuse Patient Records regulations: The Federal rules restrict any use of the information to criminally investigate or prosecute any alcohol or drug abuse patient.[facility]In the event this information is protected by the Federal Confidentiality of Alcohol and Drug Abuse Patient Records regulations: The Federal rules restrict any use of the information to criminally investigate or prosecute any alcohol or drug abuse patient.[facility]In the event this information is protected by the Federal Confidentiality of Alcohol and Drug Abuse Patient Records regulations: The Federal rules restrict any use of the information to criminally investigate or prosecute any alcohol or drug abuse patient.[facility]In the event this information is protected by the Federal Confidentiality of Alcohol and Drug Abuse Patient Records regulations: The Federal rules restrict any use of the information to criminally investigate or prosecute any alcohol or drug abuse patient.[facility]In the event this information is protected by the Federal Confidentiality of Alcohol and Drug Abuse Patient Records regulations: The Federal rules restrict any use of the information to criminally investigate or prosecute any alcohol or drug abuse patient.[facility] Reason for Visit (unrecogniz ed section [...] [R26.81] Procedures NEW RS PT VESTIBULAR DIZZY Taran LUIS Yadav [address] [phone] Marcella Pedro, PT Referral ID Status Reason Start Date Expiration Date V isits Requested Visits Authorized [id number] Authorized 2022 06/12/2023 20 20 Reason Comments Physical Therapy Specialty Diagnoses / Procedures Referred By Contac t Referred To Contact Physical Therapy / PHYSICAL THERAPY Diagnoses Dizziness [R42]; Unsteadiness [R26.81] Procedures NEW RS PT VESTIBULAR DIZZY TaranVicenta PA-C [address] [place] [address] Marcella Pedro, PT Reason Comments Fax Results Reason Comments Orders Reason Comments Follow Up Reason Comments Patient Question Reason Comments Dizziness Balance/Incoordination Headaches Neck Pain Reason Comments PT Eval Specialty Diagnoses / Procedures Referred By Contac t Referred To Contact Physical Therapy / PHYSICAL THERAPY Diagnoses Dizziness [R42]; Unsteadiness [R26.81] Procedures NEW RS PT VESTIBULAR DIZZY Taran VicentaLUIS [address] [phone] Marcella Pedro, PT Reason Comments Crop Supervisor - Other Specialty Diagnoses / Procedures Referred By Contac t Referred To Contact MR IMAGING Diagnoses Dizziness Unsteadiness Procedures MRI BRAIN WO/W IVCON MRI BRAIN BRAIN STEM W/O W/CONTRAST MATERIAL Vicenta Chirinos PA-C [address] [place] [address] Mr Imaging [address] [place] [address] Referral ID Status Reason Start Date Expiration Date V isits Requested Visits Authorized [id number] Closed Auto-Generate d Referral 10/20/2022 11/19/2023 1 1 Specialty Diagnoses / Procedures Referred By Contac t Referred To Contact MR IMAGING Diagnoses Dizziness Unsteadiness Procedures MRI CERVICAL SPINE WO IVCON MRI SPINAL CANAL CERVICAL W/O CONTRAST MATRL Vicenta Chirinos PA-C [address] [place] [address] [place] [address] Referral ID Status Reason Start Date Expiration Date V isits Requested Visits Authorized [id number] Closed Auto-Generate d Referral 10/20/2022 11/19/2023 [address] Specialty Diagnoses / Procedures Referred By Contac t Referred To Contact CT IMAGING Diagnoses Dizziness and giddiness Lightheadedness History of carotid stenosis Procedures CTA NECK W IVCON CT ANGIOGRAPHY NECK W/CONTRAST/NONCONTRAST Ab Shaffer Jr., MD [address] [facility] [address] [place] [address] [place] [address] Referral ID Status Reason Start Date Expiration Date V isits Requested Visits Authorized [id number] Closed Auto-Generate d Referral 02/21/2023 03/22/2024 1 1 Reason Comments PT Discharge Specialty Diagnoses / Procedures Referred By Contac t Referred To Contact Physical Therapy / PHYSICAL THERAPY Diagnoses Dizziness [R42]; Unsteadiness [R26.81] Procedures NEW RS PT VESTIBULAR DIZZY Vicenta Chirinos PA-C [address] [place] [address] Marcella Pedro, PT Reason Onset Date Comments Refill Request 07/25/2023 Reason Comments Follow Up Pt reported decrease d vertigo, tilt table cancelled. Reason Comments Follow Up 7 month follow up wi th vertigo Reason Onset Date Comments Refill Request 06/19/[address] Mcclure office should lesley harjit chaney rnight pulse ox norma Care Teams (unrecognized sec tion and content) Fishing Manager Relationship Specialty Start Date End Date Magalys Mcclure [address] [facility] [address] [place] [address] PCP - General Family Practice 12/21/19 Fishing Manager Relationship Specialty Start Date End Date Magalys Mcclure [address] [facility] [address] [place], [place] [id number] PCP - General Family Practice 12/21/19 Fishing Manager Relationship Specialty Start Date End Date Magalys Mcclure [address] [place] [address] PCP - General Family Medicine 12/21/19 Team [...] Primary Care Provider, Attend ing Provider Active Fishing Manager Relationship Specialty Start Date End Date Magalys Mcclure [address] [place] [address] PCP - General Family Medicine 12/21/19 Fishing Manager Relationship Specialty Start Date End Date Magalys Mcclure [address] [place] [address] PCP - General Family Medicine 12/21/19 Fishing Manager Relationship Specialty Start Date End Date Magalys Mcclure [address] [place] [address] PCP - General Family Medicine 12/21/19 Fishing Manager Relationship Specialty Start Date End Date Magalys Mcclure [address] [place] [address] PCP - General Family Medicine 12/21/19 Fishing Manager Relationship Specialty Start Date End Date Magalys Mcclure [address] [place] [address] PCP - General Family Medicine 12/21/19 Fishing Manager Relationship Specialty Start Date End Date Magalys Mcclure [address] [place] [address] PCP - General Family Medicine 12/21/19 Fishing Manager Relationship Specialty Start Date End Date VasquezzeeMagalys deluna [address] [place] [address] PCP - General Family Medicine 12/21/19 Fishing Manager Relationship Specialty Start Date End Date Magalys Mcclure [address] [place] [address] PCP - General Family Medicine 12/21/19 Fishing Manager Relationship Specialty Start Date End Date Magalys Mcclure [address] [facility] [address] [place] [address] PCP - General Family Medicine 12/21/19 Team Status: Inactive Member Role Status Dates Dr. Magalys Mcclure MD Primary Care Provider Active Dr. Aldo Beavers MD Attending Provider, Referring Pr ovider Active Fishing Manager Relationship Specialty Start Date End Date Magalys Mcclure MD [address] [place] [address] PCP - General Family Medicine 12/21/19 Fishing Manager Relationship Specialty Start Date End Date Magalys Mcclure MD [address] [facility] [address] [place] [address] PCP - General Family Medicine 12/21/19 Fishing Manager Relationship Specialty Start Date End Date Magalys Mcclure MD [address] [place] [address] PCP - General Family Medicine 12/21/19 Fishing Manager Relationship Specialty Start Date End Date Magalys Mcclure MD [address] [place] [address] PCP - General Family Medicine 12/21/19 Fishing Manager Relationship Specialty Start Date End Date Magalys Mcclure MD [address] [place] [address] PCP - General Family Medicine 12/21/19 Fishing Manager Relationship Specialty Start Date End Date Magalys Mcclure MD [address] [place] [address] PCP - General Family Medicine 12/21/19 Fishing Manager Relationship Specialty Start Date End Date Magalys Mcclure MD [address] [place] [address] PCP - General Family Medicine 12/21/19 Fishing Manager Relationship Specialty Start Date End Date Magalys Mcclure MD [address] [place] [address] PCP - General Family Medicine 12/21/19 Team Status: Inactive Member Role Status Dates Dr. Magalys Mcclure MD Primary Care Provider, Referr ing Provider Active Dr. Taryn Lee MD Attending Provider Active Team Status: Inactive Member Role Status Dates Dr. Magalys Mcclure MD Primary Care Provider Active Dr. Taryn Lee MD Attending Provider, Referr ing Provider Active Fishing Manager Relationship Specialty Start Date End Date Magalys Mcclure MD [address] [place] [address] PCP - General Family Medicine 12/21/19 Fishing Manager Relationship Specialty Start Date End Date Magalys Mcclure MD [address] [facility] [address] [place] [address] PCP - General Family Medicine 12/21/19 Fishing Manager Relationship Specialty Start Date End Date Magalys Mcclure MD [address] [facility] [address] [place] [address] PCP - General Family Medicine 12/21/19 Team [...] Dr. Brittany Rogers DO Attending Provider Active Fishing Manager Relationship Specialty Start Date End Date Magalys Mcclure MD [address] [facility] [address] [place] [address] PCP - General Family Medicine 12/21/19 Team Status: Active Member Role Status Dates Dr. Magalys Mcclure MD Primary Care Pr ovider, Attending Provider, Referring Provider Active Team Status: Inactive Member Role Status Dates Dr. Magalys Mcclure MD Primary Care Provider Active Dr. Brittany Rogers DO Attending Provider, Referring P cliff Active Fishing Manager Relationship Specialty Start Date End Date Magalys Mcclure MD [address] [facility] [address] [place] [address] PCP - General Family Medicine 12/21/19 Fishing Manager Relationship Specialty Start Date End Date Magalys Mcclure MD [address] [place] [address] PCP - General Family Medicine 12/21/19 Fishing Manager Relationship Specialty Start Date End Date Magalys Mcclure MD [address] [place] [address] PCP - General Family Medicine 12/21/19 Fishing Manager Relationship Specialty Start Date End Date Magalys Mcclure MD [address] [place], [place] [address] PCP - General Family Medicine 12/21/19 Fishing Manager Relationship Specialty Start Date End Date Magalys Mcclure MD [address] [place], [place] [address] PCP - General Family Medicine 12/21/19 Team [...] August 16, 2024 End: August 16, 2024 Team Status: Inactive Member Role Status Dates Dr. Magalys Mcclure MD Primary Care Provider Active Start: November 20, 2024 End: November 20, 2024 Dr. Magalys Mcclure MD Attending Provider Active Start: November 20, 2024 End: November 20, 2024 Dr. Magalys Mcclure MD Referring Provider Active Start: November 20, 2024 End: November 20, 2024 Fishing Manager Relationship Specialty Start Date End Date Magalys Mcclure MD [address] [place] [address] PCP - General Family Medicine 12/21/19 Team Status: Active Member Role/Relationship Status Dates Dr. Magalys Mcclure MD Family Provider Active Dr. Magalys Mcclure MD Primary Care Provider Active Team Status: Inactive Member Role/Relationship Status Dates Dr. Magalys Mcclure MD Primary Care Provider Active Start: November 20, 2024 End: November 20, 2024 Dr. Magalys Mcclure MD Attending Provider Active Start: November 20, 2024 End: November 20, 2024 Dr. Magalys Mcclure MD Referring Provider Active Start: November 20, 2024 End: November 20, 2024 Team Status: Inactive Member Role/Relationship Status Dates Dr. Magalys Mcclure MD Primary Care Provider Active Start: January 02, 2025 End: January 02, 2025 Dr. Magalys Mcclure MD Referring Provider Active Start: January 02, 2025 End: January 02, 2025 Dr. Samir Forrest MD Attending Provider Active Start: January 02, 2025 End: January 02, 2025 Team Status: Active Member Role/Relationship Status Dates Dr. Magalys Mcclure MD Primary Care Provider Active Team Status: Inactive Member Role/Relationship Status Dates Dr. Magalys Mcclure MD Primary Care Provider Active Start: January 21, 2025 End: January 21, 2025 Dr. Samir Forrest MD Attending Provider Active Start: January 21, 2025 End: January 21, 2025 Dr. Samir Forrest MD Referring Provider Active Start: January 21, 2025 End: January 21, 2025 Team Status: Active Member Role/Relationship Status Dates Dr. Magalys Mcclure MD Primary Care Provider Active Start: January 21, 2025 Dr. Tristen Calloway MD Attending Provider Active S tart: January 21, 2025 Team Status: Active Member Role/Relationship Status Dates Dr. Magalys Mcclure MD Primary Care Provider Active Start: January 21, 2025 Amanda Chamberlain PACKAGING MACHINE OPERATOR, PACKAGING MACHINE OPERATOR-C Attending Provider Active Start: January 21, 2025 Fishing Manager Relationship Specialty Start Date End Date Magalys Mcclure MD [address] [facility] [address] [place] [address] PCP - General Family Medicine 12/21/19 Goals (unrecognized section and content) Goals may [...] BE BASED ON THE PRIMARY CLINICAL RECORDS. [facility]. provides no warranty or guarantee of the accuracy or completeness of information in this document.
--- NOTE | 2025-02-01 13:16 | STRESSREP ---
Stress Test Report Pharmacologic myocardial perfusion stress test. 84-year-old lady with a history of SVT. Resting EKG demonstrates normal sinus with a rate of 65 bpm. Resting blood pressure is 154/68 mmHg. 0.4 mg of regadenoson was infused per usual protocol followed by rapid intravenous saline flush injection. Continuous EKG monitoring was performed. The maximum heart rate was 108 bpm which was 80% of max impacted heart rate the maximum workload was 1 metabolic equivalent. At rest there were no ST or T wave changes noted to suggest ischemia and at peak infusion nonspecific ST changes were noted which did not meet the criteria for ischemia. No clinical angina is noted. The final blood pressure was 140/70 mmHg. Myocardial perfusion protocol. 11.5 mCi of technetium 99m sestamibi was injected at rest. 0.4 mg of regadenoson was infused per usual protocol. At peak infusion 34 mCi of technetium 99m sestamibi was injected stress images were obtained stress and rest images were reconstructed and compared in the short axis vertical long and horizontal long axis. Gated images were also obtained. Perfusion SPECT analysis: Review of the stress images demonstrate normal uptake of tracer noted in all areas of the myocardium. The resting images similar demonstrated normal uptake of tracer noted in all areas of the myocardium. No areas of reversibility are noted to suggest ischemia and no previous infarct is noted. Gated SPECT analysis: The gated ejection fraction is 87%. Conclusion: Normal pharmacologic myocardial perfusion stress test. Preserved ejection fraction.
== END | disposition home or self-care (01) ==
LOC: CVS 07:20
PROVIDERS: PCP Family Medicine; Referring Provider Internal Medicine Cardiovascular Disease; Visit Provider Internal Medicine Cardiovascular Disease
DX: M54.89 Other dorsalgia (principal); I51.89 Other ill-defined heart diseases; I47.10 Supraventricular tachycardia, unspecified; I51.7 Cardiomegaly
CPT/HCPCS: 78452; 93017; 93306; A9500; A4216; J2785

== ENCOUNTER → 2025-05-01 | Outpatient (CLI) | payer MEDICARE, SELFPAY ==
--- OUTSIDE RECORDS SUMMARY | 2025-05-01 17:06 | XMS RPT_ITS | CCD ---
Author Organization [facility] [place] CliniSyfl Care Team Providers Care Nutrition Services Aide Name Role Phone Taryn Lee MD Unavailable [phone] Magalys Mcclure Primary Care Provider Dr. Magalys [...] Referring Provider Dr. Taryn Lee Attending Provider Kami RICHMOND, Magalys eCja Primary Care Provider KAMI RICHMOND, MAGALYS Primary Care Physician Blake PT, Rebeca Unavailable Unavailable KAMI RICHMOND, MAGALYS Primary Care Unavailable ARAM RICHMOND, NED Maynard Attending Unavailable Kami RICHMOND, Dr. Magalys Ceja Primary Care Provider [phone] Kami RICHMOND, Dr. Magalys Ceja Attending Provider Kami RICHMOND, Dr. Magalys Ceja Referring Provider [phone] Dr. Taryn Lee MD Attending Provider Aram RICHMOND, Dr. Maria Attending Provider Dr. Olaf Mata MD Attending Provider Dr. Samir Forrest MD Attending Provider Kami RICHMOND, Dr. Magalys Ceja Primary Care Provider Kami RICHMOND, Dr. Magalys Ceja Attending Provider Kami RICHMOND, Dr. Magalys Ceja Referring Provider Kami RICHMOND, Dr. Magalys Ceja Primary Care Provider Kami RICHMOND, Dr. Magalys Ceja Attending Provider Kami RICHMOND, Dr. Magalys Ceja Referring Provider [phone] Lon RICHMOND, Dr. Dawson Attending Provider Lon RICHMOND, Dr. Dawson Referring Provider Elli RICHMOND, Dr. Ramon Attending Provider Bulmaro MOTO MIX OPERATOR-C, Amanda Attending Provider Esperanza RICHMOND, Dr. Babin Attending Provider Lon RICHMOND, Dr. Dawson Other Provider SCHINNER, MAGALYS E Primary Care Unavailable AB SHAFFER JR Referring Unavailable AB SHAFFER JR Referring Unavailable SCHINNER, MAGALYS E Primary Care Unavailable AB SHAFFER JR Attending Unavailable SCHINNER, MAGALYS E Primary Care Unavailable Schinner, Magalys E Primary Care Unavailable Schinner, Magalys E Referring Unavailable Schinner, Magalys E Attending Unavailable Schinner, Magalys E Primary Care Unavailable Lon, Samir Referring Unavailable LonSamir Attending Unavailable Schinner, Magalys E Primary Care Unavailable Schinner, Magalys E Referring Unavailable Schinner, Magalys E Attending Unavailable Schinner, Magalys E Primary Care Unavailable Lon, Samir Referring Unavailable Lon, Samir Attending Unavailable Schinner, Magalys E Primary Care Unavailable Schinner, Magalys E Attending Unavailable Schinner, Magalys E Primary Care Unavailable Amanda Chamberlain NP Attending Unavailable Schinner, Magalys E Primary Care [...] Primary Care Unavailable Olaf Mata Attending Unavailable LonSamir Consulting Unavailable Schinner, Magalys E Primary Care Unavailable Lon, Samir Referring Unavailable Olaf Mata Attending Unavailable Magalys Mcclure Primary Care Unavailable Magalys Mcclure Referring Unavailable Magalys Mcclure Attending Unavailable Allergies Allergy Classification Reported Allergen(s) Allergy Type Date of Onset Reaction(s) Facility (2 sources) codeine Drug Allergy 03-18-20 [facility] (2 sources) ofloxacin Drug Allergy 03-18-20 [facility] (2 sources) sulfamethoxazole / trimethoprim Drug Allergy 03-18-20 [facility] (2 sources) SUMAtriptan Drug Allergy 03-18-20 [facility] (2 sources) PAIN MEDICATION drug allergy 03-18-20 [facility] (20 sources) Codeine; Translations: [codeine] Drug Allergy 10-18-19 Vomiting [facility] (20 sources) Morphine; Translations: [morphine] Drug Allergy 10-18-19 Vomiting [facility] (20 sources) Ofloxacin; Translations: [ofloxacin] Drug Allergy 04-18-20 Other [facility] Work Phone: (20 sources) Pethidine analog; Translations: [OPIOIDS-MEPERIDINE AND RELATED] Propensity to adverse reactions 10-18-19 [facility] (20 sources) Sulfonamides (Antibiotic); Translations: [SULFA (SULFONAMIDE ANTIBIOTICS)] Propensity to adverse reactions 10-18-19 [facility] (20 sources) SUMAtriptan; Translations: [SUMATRIPTAN SUCCINATE] Drug Allergy 04-18-20 Other [facility] Work Phone: (20 sources) [id number] Antimigraine Agents; Translations: [[id number] ANTIMIGRAINE AGENTS] Propensity to adverse reactions 10-18-19 [facility] (20 sources) Meperidine; Translations: [meperidine HCl] Drug Allergy 01-23-20 Nausea [facility] (20 sources) Sulfamethoxazole Drug Allergy 01-23-20 [facility] (20 sources) SUMAtriptan; Translations: [sumatriptan] Drug Allergy 01-23-20 Other [facility] (20 sources) Trimethoprim Drug Allergy 01-23-20 Nausea [facility] (4 sources) [id number] Antimigraine Agents Propensity to adverse reactions 10-18-19 [facility] (1 source) HYDROmorphone; Translations: [hydromorphone] Drug Allergy [facility] (1 source) Meperidine; Translations: [meperidine] Drug Allergy [facility] (1 source) Sulfamethoxazole / Trimethoprim; Translations: [sulfamethoxazole-tr imethoprim] Drug Allergy [facility] (1 source) Codeine Drug Allergy 01-03-20 [facility] (1 source) Morphine Drug Allergy 01-03-20 [facility] (1 source) Ofloxacin Drug Allergy 01-03-20 [facility] (1 source) Sulfamethoxazole Drug Allergy 01-03-20 [facility] (1 source) SUMAtriptan Drug Allergy 01-03-20 [facility] (1 source) SUMAtriptan Drug Allergy 01-03-20 [facility] (1 source) Trimethoprim Drug Allergy 01-03-20 [facility] Medications Current Medications Medication Drug Class(es) Dates Sig (Normalized) Sig (Original) acetaminophen 325 mg oral tablet (12 sources) Start: 04-08-2023 take 2 tablets by mouth once daily Acetaminophen (Tylenol) 325 mg tablet Active 650 mg PO DAILY April 08, 2023 12:00am aspirin 81 mg delayed release oral tablet (2 sources) Platelet Aggregation Inhibitor, Nonsteroidal Anti-inflammatory Drug Start: 01-02-2025 take 1 tablet by mouth once daily Aspirin (Adult Aspirin Regimen) 81 mg tablet,delayed release (DR/EC) Active 81 mg PO daily January 02, 2025 12:00am augmented betamethasone 0.0005 [...] oral tablet (20 sources) Mood Stabilizer Start: take 0.5 tablet by mouth twice daily in the morning, then take 1.5 tablets by mouth at bedtime Carbamazepine (Tegretol) 200 mg tablet Active 0 PO TWICE A DAY January 02, 2025 12:00am orally twice a day; 1/2 tab in AM and 1.5 tab HS Start: 01-15-2022 End: 01-02-2025 take 1 capsule by mouth every twelve [...] half tablets by mouth at bedtime CARBAMAZEPINE [id number] Taryn Lee MD Comment on above: Take [...] April 08, 2023 9:04am Compress.Stocking,Knee,Reg,M ed misc (5 sources) Start: 07-10-2024 Compress.Stocking,Knee,Reg,M ed misc Active [...] link. multivitamin capsule (16 sources) Start: 06-16-19 take 1 capsule by mouth once daily multivitamin capsule Active 1 CAP PO daily June 16, 2017 12:00am Start: 06-16-2017 take 1 capsule by mo [facility] once daily multivitamin capsule Active 1 CAP PO daily June 16, 2017 1:00am Multivitamin capsule (5 sources) Start: 06-16-2017 Multivitamin capsule Active 1 [...] Start: 06-16-2017 take 1 capsule by mo [facility] once daily Verapamil (Verelan) 240 mg capsule,ext rel. pellets 24 hr Active 240 mg PO daily June 16, 2017 1:00am Start: 03-18-2017 VERAPAMIL HCL ER 240 MG CR-TABS VERAPAMIL HCL [id number] Taryn Lee MD Comment on above: Take [...] / HYDROcodone bitartrate 5 mg oral tablet (12 sources) Opioid Agonist Start: 04-08-2023 End: 04-03-2024 [...] D3 600-800 MG-UNIT TABS CALCIUM CARB-CHOLECALCIFER OL [id number] Taryn Lee MD calcium carbonate 1500 mg oral tablet (12 sources) Start: 04-08-2023 End: 01-02-2025 take 1 [...] ea. cloNIDine hydrochloride 0.2 mg oral tablet (10 sources) Central alpha-2 Adrenergic Agonist Start: End: 5 take 1 tablet by mouth once daily [...] (20 sources) Estrogen Start: 02-13-20 End: 08-01-19 24 take 1 tablet by mouth once daily Estradiol 0.5 mg tablet Discontinued 0 .ROUTE .COMPLEX 90 4 December 20, 2022 8:19am March 17, 2023 2:07pm TAKE 1 TABLET BY MOUTH EVERY DAY Comment on above: Take 1 tablet by carlos th once daily. fluticasone propionate 0.05 mg/actuat metered dose nasal spray (13 sources) Corticosteroid Start: 04-08-20 End: 11-24-19 24 Fluticasone Propionate 50 mcg/actuation spray,suspension Discontinued 1 [...] number: 1 gabapentin 100 mg oral capsule (5 sources) Anti-epileptic Agent Start: 04-03-2024 End: 01-02-2025 [...] tablet (20 sources) Nonsteroidal Anti-inflammatory Drug Start: 02-11-2017 End: 11-24-2023 take 1 tablet by mouth once daily Meloxicam 15 mg tablet Discontinued 15 mg PO daily June 16, 2017 1:00am November 24, 2023 1:01pm Comment on above: Take 1 tablet by carlos th once daily. for pain. Take with food. metoprolol tartrate 25 mg oral tablet (20 [...] 7 MULTIVITAMIN WOMEN 50+ TABS MULTIPLE VITAMINS-MINERALS [id number] Taryn Lee MD omeprazole 20 mg delayed release oral capsule (20 sources) Proton Pump Inhibitor Start: End: take 2 capsules by mouth once daily Omeprazole 20 mg capsule,delayed release(DR/EC) Discontinued 40 mg PO DAILY May 08, 2019 1:00am April 08, 2023 9:04am Start: 05-08-2019 End: 04-08-2023 take 40 mg by mouth once daily Omeprazole Discontinued 40 MG PO DAILY May 08, 2019 1:00am April 08, 2023 9:04am Start: 12-08-2018 take 1 capsule by [facility] once daily Omeprazole 20 mg capsule,delayed release(DR/EC) Active 20 mg PO DAILY April 08, 2023 8:58am Start: 07-12-2016 End: 08-01-2023 take 1 capsule by mouth once daily Omeprazole 40 mg capsule Indications: Gastroesophageal reflux disease without esophagitis Take 1 capsule by mouth once daily. 90 capsule 3 07/12/2016 08/01/2023 Discontinued Comment on above: Take 1 capsule by [facility] once daily. oxyCODONE hydrochloride 5 mg oral tablet (20 sources) Opioid Agonist Start: 022 End: take 2.5-5 mg by mouth every four hours as needed for pain Oxycodone 5 mg tablet Discontinued 2.5 - 5 mg PO Q4H as needed for pain 10 3 0 January 22, 2022 February 03, 2022 1:19pm Other acute postprocedural pain Other acute postprocedural pain progesterone 200 mg oral capsule (20 sources) Progesterone Start: 023 End: take 1 capsule by mouth once daily Progesterone Micronized 200 mg capsule Discontinued 0 .ROUTE .COMPLEX 90 1 July 05, 2023 11:59am November 24, 2023 1:03pm TAKE 1 CAPSULE BY MOUTH EVERY DAY Comment on above: Take by mouth. sucralfate 1000 mg oral tablet (20 sources) Aluminum Complex Start: 018 End: take 1 tablet by mouth four times daily Sucralfate 1 GM tablet Discontinued 1 g PO 4 TIMES DAILY 120 0 July 08, 2017 1:00am May 08, 2019 4:16pm tacrolimus 0.001 mg/mg topical ointment (20 sources) Calcineurin Inhibitor Immunosuppressant Start: 017 End: 024 Tacrolimus (Protopic) 0.1 % ointment Discontinued 1 NMA TOPICAL TWICE A DAY as needed for oral April 08, 2023 8:58am April 03, 2024 3:03pm Comment on above: Apply 1 application to affected area twice daily as needed. triamcinolone acetonide 0.001 mg/mg oral paste (20 sources) Corticosteroid Start: 018 End: 021 Triamcinolone Acetonide 0.1 % paste Discontinued 1 NMA DENTAL AT BEDTIME June 16, 2017 1:00am September 25, 2020 1:04pm Start: 06-16-2017 End: 09-25-2020 Triamcinolone Acetonide Disc ontinued 1 APPLIC DENTAL AT BEDTIME June 16, 2017 1:00am September 25, 2020 1:04pm Comment on above: by DENTAL route twic e daily. 24 hr venlafaxine 37.5 mg extended release oral capsule (12 sources) Serotonin and Norepinephrine Reuptake Inhibitor Start: [...] 1 tablet by carlos th once daily. Problems Active Problems Problem Classification Problem Date Documented Date Episodic/Chronic Cardiac dysrhythmias (20 sources) Supraventricular tachycardia; Translations: [Supraventricular tachycardia] 04-14-2023 [...] relizen Occlusion or stenosis of precerebral arteries (12 sources) Carotid artery stenosis; Translations: [Occlusion and stenosis of unspecified carotid artery] 04-08-2023 Chronic Other acquired deformities (6 sources) Scoliosis of lumbar spine; Translations: [Scoliosis, unspecified] 06-01-2024 Chronic Other acquired deformities (6 sources) Lumbar spondylolisthesis; Translations: [Spondylolisthesis, lumbar region] 06-01-2024 Episodic Other aftercare (3 sources) Encounter for other orthopedic aftercare; Translations: [Unspecified orthopedic aftercare] Episodic Other aftercare (1 source) Patient encounter status; Translations: [Encounter for therapeutic drug level monitoring] Episodic Other aftercare (1 source) Taking high risk medication; Translations: [Other terminal computer operator (current) drug therapy] 02-21-2023 Episodic Other and ill-defined heart disease (15 sources) Diastolic dysfunction; Translations: [Other ill-defined heart diseases] 04-14-2023 Chronic Other and ill-defined heart disease (8 sources) Other ill-defined heart diseases; Translations: [Heart disease, unspecified] Onset: 07-10-2024 04-14-2023 Chronic Other bone disease and musculoskeletal deformities (6 sources) Osteopenia; Translations: [Other specified disorders of bone density and structure, unspecified site] 06-01-2024 Episodic Other circulatory disease (2 sources) H/O: cardiovascular disease; Translations: [Personal history of other diseases of the circulatory system] 02-21-2023 Episodic Other female genital disorders (7 sources) Endometrial hyperplasia; Translations: [Endometrial hyperplasia, unspecified] [...] upper limbs] Chronic Other nervous system disorders (7 sources) Carpal tunnel syndrome of left wrist; [...] right hip] Episodic Other non-traumatic joint disorders (6 sources) Hip pain; Translations: [Pain in right hip] 05-31-2024 Episodic Peripheral and visceral atherosclerosis (6 sources) Arteriosclerotic vascular disease; Translations: [Unspecified atherosclerosis] Onset: 01-25-2025 01-02-2025 Chronic Residual codes; unclassified (2 sources) Menopause present; Translations: [Menopausal and female climacteric states] Onset: 03-18-2017 03-18-2017 Chronic Residual codes; unclassified (6 sources) Obstructive sleep apnea syndrome; Translations: [Obstructive sleep apnea (adult) (pediatric)] Chronic Residual codes; unclassified (1 source) Obstructive sleep apnea (adult) (pediatric); Translations: [MELA (obstructive sleep apnea)] Onset: 04-01-2025 Chronic Residual codes; unclassified (6 sources) Bilateral lower limb edema; Translations: [Localized edema] 07-10-2024 Episodic Spondylosis; intervertebral disc disorders; other back problems (5 sources) Lumbar spondylosis; Translations: [Lumbar adjacent segment disease with spondylolisthesis] 06-01-2024 Chronic Spondylosis; intervertebral disc disorders; other [...] stenosis, lumbar region without neurogenic claudication Unclassified (2 sources) Supraventricular tachycardia, unspecified; Translations: [Supraventricular tachycardia, unspecified] Onset: 07-10-2024 Unclassified (1 source) Low back pain, unspecified; Translations: [Low back pain, unspecified] Onset: 05-31-2024 Past or Other Problems Problem Classification Problem Date Documented Da te Episodic/Chronic Fluid and electrolyte disorders (4 sources) Hyponatremia; Translations: [Hypo-osmolality and hyponatremia] Onset: 05-23-2024 08-01-2023 Episodic Genitourinary symptoms and ill-defined conditions (7 sources) Urgent desire to urinate; Translations: [Urgency of urination] Onset: 05-12-2009 Resolved: 05-29-2010 05-29-2010 Episodic Malaise and fatigue (7 sources) Fatigue; Translations: [Other fatigue] Onset: 07-10-2024 [...] edema; Translations: [Localized edema] Onset: 07-10-2024 Episodic Results Test Name Value Interpretation Reference Range [facility] Letter Text Normal [facility] POLYSOMNOGRAM (PSG)/HOME SLE EP APNEA TEST (HSAT)on 04-02-2025 POLYSOMNOGRAM (PSG)/HOME SLEEP APNEA TEST (HSAT) [facility] at [address], [address] [address] ; Home Sleep Apnea Test (HSAT) Study Report Name: KATRINA MANCINI Date of Study: 04/02/2025 [facility]#: [id number] Age: 84 (: 1940) ESS: N/A Neck Circ. (cm): N/A Height (cm): 161.0 Weight (kg): 60.0 BMI: 23.1 Referring Provider: AB SHAFFER JR Mailcode: [facility] Sleep history: The patient is a 84 year old female with a history of obstructive sleep apnea. Records of a baseline sleep study are unavailable. A PAP titration study from an outside facility in 2013 reports a prior baseline study showed an AHI of 26.0. The patient is not currently using PAP and endorses: daytime sleepiness, fatigue, and snoring. The patient is here for reassessment of obstructive sleep apnea. Pertinent medical history: Epilepsy, GERD, Headaches, Hyperlipidemia, Obstructive sleep apnea Medications: Aspirin, Tegretol, catapres, Neurontin, Mobic, Lopressor, Prilosec, Crestor, Verapamil Sleep procedure: PSG unattended Type III, minimum of 4 parameters ([id number]) Procedure: This study was performed using a Type III ambulatory PSG device and was unattended. The patient was instructed on proper use of the device by a registered 3d technologist. The monitored parameters included heart rate, oxygen saturation, continuous airflow with thermistor and nasal pressure transducer, snoring via nasal pressure transducer, chest and abdominal effort, and body position. SHARONDA definition: Respiratory event index (SHARONDA), calculated as respiratory events x 60 / TRT (total recording time in minutes). Note: the apnea hypopnea index has been replaced by the respiratory event index for home sleep apnea test. Since the home sleep apnea test does not measure sleep, the SHARONDA is most accurate index of respiratory events. The SHARONDA is a surrogate of the AHI per the AASM Manual for Scoring of Sleep and Associated Events version 3. Apnea definition: The peak signal excursions drop by >90% of pre-event baseline using an oronasal thermal sensor (diagnostic study), PAP device flow (titration study) or an alternative apnea sensor (diagnostic study). The duration of the >90% drop in signal excursion is >=10 seconds. Hypopnea definition: The peak signal excursions drop by >= 30% of pre-event baseline using nasal pressure (diagnostic study), PAP device flow (titration study) or an alternative hypopnea sensor (diagnostic study). The duration of the >= 30% drop in signal excursion is >=10 seconds. There is a greater than or equal to 4% oxygen desaturation from pre-event baseline. RESPIRATORY DATA: The study started at 23:05:29 and ended at 08:32:21 and the total recording time was 567 minutes. By convention, sleep is assumed for the whole recording. Snoring was noted. There was a total of 161 respiratory events. Of these events, the total number of apneas was 67 (67 obstructive, 0 mixed, and 0 central (0.0%)) and 94 hypopneas. The central apnea index ([place]) was 0.0. The respiratory event index (SHARONDA) was 17.0 events per hour of study time. The mean oxygen saturation during the study was 94.0%, with a minimum oxygen saturation of 74.0%. The patient spent 31.9 minutes at oxygen saturation measured less than 90% (5.6% of recording time) and 24.0 minutes at oxygen saturation measured at or less than 88% (4.2% of recording time). Time SHARONDA/AHI Supine 156.5 min 16.5 Off-Supine 410.5 min 17.2 Total 567.0 min 17.0 ECG DATA: The average heart rate was 66 bpm with a range of 57 bpm to 90 bpm. ICSD DIAGNOSIS: Obstructive Sleep Apnea Syndrome [G47.33] IMPRESSION/RECOMMENDAT IONS: 1. This study confirms a diagnosis of at least moderate obstructive sleep apnea. It is unclear if the patient wore an oral airway or dental appliance during this study. Attempts were made to confirm such but were unsuccessful. 2. The results of this study may represent an underestimation of the degree of obstructive sleep apnea, especially hypopneas, because of the known limitations of HSAT, such as inability to record arousals because EEG is not recorded. 3. Untreated sleep apnea is associated with a variety of consequences including but not limited to hypertension, heart disease, stroke, obesity and daytime sleepiness that can affect normal daytime functioning. 4. PAP therapy is the usual first line therapy. Other treatment options for MELA may include weight loss, positional therapy, oral appliance, upper airway surgery, upper airway stimulation, treatment of allergies and avoidance of alcohol and sedating medications (such as opioids, benzodiazepines, and muscle relaxers) that can cause respiratory depression. INTERPRETING PHYSICIAN: Ab Shaffer Jr., MDayana. I attest that I have performed epoch by epoch review of the entire raw data and find this study to be technically adequate. (more content not included)... Normal [facility] 03-27-2025 [facility] Telephone ([email or web address]) KATRINA MANCINI ([id number]) 1940 F Date Time Provider Department 03/27/25 AB SHAFFER JR During your visit today, we recorded the following information about you: Gina Jernigan LPN 03/27/2025 12:50 PM Signed Phoned patient to schedule 6 month follow up from 03/08/25 appointment- Dr Shaffer requesting patient see him in [place]. Would schedule on a Tuesday (in case his schedule should change) this will be the best day. SAYRA Whaley Lori, LPN 04/04/2025 8:49 AM Signed Letter mailed to patient to call in and schedule 6 month follow up. Gina Jernigan LPN Allergies As of Date: 03/27/2025 Noted Allergy Reaction CODEINE 10/17/2002 Comments: nasea vomitting FLOXIN (OFLOXACIN) 04/18/2006 Comments: depression IMITREX (SUMATRIPTAN SUCCINATE) 04/18/2006 Comments: sweating, drop in BP MORPHINE 10/17/2002 Comments: [place] vomitting OPIOIDS-MEPERIDINE AND RELATED 10/17/2002 Comments: [place] vomitting SULFA (SULFONAMIDE ANTIBIOTICS) 10/17/2002 Comments: [place] vomtting [id number] ANTIMIGRAINE [id number]/17/2002 Comments: heart palpitations Date Reviewed: 03/08/2025 Reviewed by: Ab Shaffer Jr., MD - Fully Assessed Reason for Visit: Appointment [[id number]] Cmt: Dr Shaffer requested patient follow up in 6 months with his after 03/08/25 appt. -due end of August. Prescriptions as of 04/04/2025 - gabapentin (NEURONTIN) 100 mg capsule Take 100 mg by mouth three times a day. - aspirin, enteric coated (ASPIRIN, ENTERIC COATED) 81 mg EC tablet Take 81 mg by mouth once daily. - verapamil SR (CALAN SR) 240 mg CR tablet TAKE 1 [...] by mouth two times a day. - progesterone micronized (PROMETRIUM) 200 mg capsule [...] as needed Problem List As Of Date 03/27/2025 Noted Resolved HYPERLIPIDEMIA NEC/NOS [E78.5] 02/02/2005 08/26/2015 [...] and giddiness [R42] 03/30/2023 Encounter Status:Closed by GINA JERNIGAN on 04/04/25 Normal [facility] Inital Evaluation (1) - PTon 03-19-2025 Inital Evaluation (1) - PT [facility] [place] [address] / REHABILITATION SERVICES INITIAL EVALUATION MR#: [id number] Acct: [id number] Name: KATRINA MANCINI Rep #: [id number] : 1940 84 From: Francesco Washington DPT Referring Dr.: Dr. Magalys Mcclure MD Status: REG RCR Insurance: [facility] MED[employer] S[employer] PAY INSURANCE Patient's Visit Information Visit Information Visit Information: KATRINA MANCINI is a 84 year old F referred to Physical Therapy by Dr. Magalys Mcclure MD with a diagnosis of BPPV. Date of Evaluation: 03/19/25 Physical Therapist: Francesco Washington DPT Visit Plan Frequency: 2x /Week Duration: 6 Weeks Plan: Start with eplys. Re check this at next visit. I gave her SLS, narrow stance and heel raises for HEP. Build on BLE strengthening and dynamic balance training. Subjective Subjective: Pt. is here today for her initial evaluation with diagnosis of BPPV. Pt. reports feeling a little unsteady. Pt. reports having to use furniture with walking at home. Pt. reports no using an AD with outside walking, but does keep a cane in her car just in case. Pt. reports also having LBP which pain management is addressing. Pt. reports having some dizziness with rolling and with getting up/down from lying. Pt. reports having some balance issues with walking as well. Pt. having symptoms for about 1 year. Objective Objective: POSTURE: pt. has a wide MADHAV in stance. Pt. has slight rounded shoulders with slight kyphosis. PALPATION: Normal NEURO: Pt. reports having some N/T in her feet and legs but believes this is due to her back issues. ROM; normal. MMT: Pt. has 4+/5 throughout BLEs. GAIT: Pt. has a little bit instability with walking. Pt. had a few lateral sways from her path, but was able to self correct. + Armando spangler pike on R side. I treated with eplys on same side and did not have any symptoms upon re testing. Balance/Special Test Scores Functional Gait Assessment Score: 15 % Disability: 50.0000 CATSIB Score (Max score 120 seconds): 51 Lower Extremity Functional Score: 25 Goals Goal 1:: LTG: Pt. to have no dizziness with changes in movements and - Gates hallpike. Goal Time Frame: 4-6 Weeks Goal 2:: LTG: Pt. to have improved FGA to 25/30 indicating reduced risk for falls. Goal Time Frame: 4-6 Weeks Goal 3:: LTG: Pt. to have improved BLE strength to 5/5 throughout. 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 Pt. would benefit from PT to address her BPPV and her imbalance. Rehabilitation Potential: Excellent Anticipated Interventions Patient/Client Instruction: Educate patient on: Condition, Plan of Care, Risk Factors and Benefits of Fitness Program For the Purpose of:: To improve decision making, To facilitate caregiver knowledge, To improve self management, To prevent re-injury, To improve ability to perform tasks related to life management and To improve tolerance to ADL's Therapeutic Exercise to Include: Strength training, Power training, Balance training, Coordination, Agility training, Body mechanics, Flexibilty training, Passive ROM and Active ROM For the Purpose of:: To improve nutrient delivery to tissue, To increase oxygenation perfusion, To improve muscle performance and motor function, To increase tolerance to activity/condition/pos ition, To improve performance and independence with ADL's, To decrease level of supervision to perform tasks and To decrease soft tissue restriction Text: Thank you for the opportunity to evaluate your patient. For Medicare and Medicare HMO plans, please review the plan of care and approve it. It will need to be FAXED BACK to us at [phone] for Medicare purposes. For Medicare only, by signing this I certify the plan of care. Please let me know if there are questions or concerns regarding this plan of care. Physician Signature: Date:__ 03/19/25 1702 CC: Dr. Magalys Mcclure MD [facility] Signed Normal [facility] 25([place])D3 [facility] 25-hydroxyvitamin D3 [Mass/Vol] 37.5 ng/mL Normal 31.0-80.0 [facility] Comment on above: Order Comment: Speci men Type: BLOOD SPECIMEN Ordering Facility: [facility] Address: [address] [place] [address] Result Comment: Clas sification of 25 [place] Vitamin D status: Deficiency/Insufficiency: < or = 30 ng/ml. Sufficiency/Optimal Levels: 31-80 ng/mL Toxicity: > 100 ng/mL. Test performed by chemiluminescent immunoassay. Performed By: #### 3 433-0 #### [facility] CLIA [id number] [address] [place] [address] OF [facility] CNOVon 03-08-2025 CNOV Office Visit (DESHAWN ) KATRINA MANCINI ([id number]) 1940 F Date Time Provider Department 03/08/25 3:20 PM AB SHAFFER JR During your visit today, we recorded the following information about you: Pulse Respiration Blood pressure Weight 71/minute 16/minute 135/47 60.7 kg Rayna Morillo LPN 03/08/2025 6:13 PM Signed Ab Shaffer Jr., MD 03/08/2025 6:13 PM Signed ESTABLISHED PATIENT VISIT CHIEF COMPLAINT: Follow up HISTORY OF PRESENT ILLNESS: Katrina Mancini is a 84 year old female, BMI 23.33 kg/m2 with a PMH significant for and per last office visit note of 03/02/24: 1. 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 Reported hyponatremia during interim but thought to be due to antidepressant she was started on. Since, the antidepressant has been d/c'd. Scheduled for labs soon through PCP. For now will continue Carbamazepine as previously Rx'd. [...] Dizziness - ICD9: 780.4, ICD10: R42 Resolved. Pt did have fall in 05/2024 - looking down to smell a jevon bud. Reports gets a lightheaded sensation. No full positional change. Similar to what pt had before but resolved over time. Currently scheduled to see vestibular therapy. Not daily. No time of day worse than others. States more trouble walking in the AM but feels due to hips and lower back pain that is chronic. PCP did order a sleep study -- more specifically a noc pulse ox - 6.9% of recorded with O2 <90%. Note current oral appliance is solid. Pt states would not want PAP. Discussed limitations of nocturnal oximetry. Pt cannot leave home at night due to . Ok with HSAT. Headaches still not present - eliminated since on Verapamil ER 240mg daily. No seizures since last visit. No Tegretol level for past year - question if levels possibly increased and contributing to dizzy sensations. Patient reports just had aortic ultrasound and cardiac stress test and all normal. REVIEW OF SYSTEMS GENERAL:No weight loss, malaise [...] ALT (U/L) Date Value 02/21/2023 17 MEDICATIONS: gabapentin (NEURONTIN) 100 mg capsule Take 100 mg by mouth three times a day. aspirin, enteric coated (ASPIRIN, ENTERIC COATED) 81 mg EC tablet Take 81 mg by mouth once daily. (more content not included)... Normal [facility] Comprehensive metabolic 2000 panelon 03-08-2025 Albumin [Mass/Vol] 4.7 g/dL Normal 3.9-4.9 [facility] Comment on above: Order Comment: Speci men Type: BLOOD SPECIMEN Ordering Facility: [facility] Address: [address] [place] [address] Performed By: #### 3 433-0 #### [facility] CLIA [id number] [address] [place] [address] STATES OF [facility] ALP [Catalytic activity/Vol] 110 U/L Normal 34-123 [facility] Comment on above: Order Comment: Speci men Type: BLOOD SPECIMEN Ordering Facility: [facility] Address: [address] [place] [address] Performed By: #### 3 433-0 #### [facility] CLIA [id number] [address] [place] [address] [place] ALT [Catalytic activity/Vol] 21 U/L Normal 7-38 [facility] Comment on above: Order Comment: Speci men Type: BLOOD SPECIMEN Ordering Facility: [facility] Address: [address] [place] [address] Performed By: #### 3 433-0 #### [facility] CLIA [id number] [address] [id number] [address] [place] Anion gap [Moles/Vol] 14 mmol/L Normal 8-15 [facility] Comment on above: Order Comment: Speci men Type: BLOOD SPECIMEN Ordering Facility: [facility] Address: [address] [place] [address] Performed By: #### 3 433-0 #### [facility] CLIA [id number] [address] [place] [address] [place] AST [Catalytic activity/Vol] 28 U/L Normal 13-35 [facility] Comment on above: Order Comment: Speci men Type: BLOOD SPECIMEN Ordering Facility: [facility] Address: [address] [place] [address] Performed By: #### 3 433-0 #### [facility] CLIA [id number] [address] [place] [address] [place] Bilirubin [Mass/Vol] 0.3 mg/dL Normal 0.2-1.3 [facility] Comment on above: Order Comment: Speci men Type: BLOOD SPECIMEN Ordering Facility: [facility] Address: [address] [place] [address] Performed By: #### 3 433-0 #### [facility] CLIA [id number] [address] [place] [address] [place] Calcium [Mass/Vol] 9.8 mg/dL Normal 8.5-10.2 [facility] Comment on above: Order Comment: Speci men Type: BLOOD SPECIMEN Ordering Facility: [facility] Address: [address] [place] [address] Performed By: #### 3 433-0 #### [facility] CLIA [id number] [address] [place] [address] [place] Chloride [Moles/Vol] 94 mmol/L Low 98-107 [facility] Comment on above: Order Comment: Speci men Type: BLOOD SPECIMEN Ordering Facility: [facility] Address: [address] [place] [address] Performed By: #### 3 433-0 #### [facility] CLIA [id number] [address] [place] [address] [place] CO2 [Moles/Vol] 26 mmol/L Normal 22-30 [facility] Comment on above: Order Comment: Speci men Type: BLOOD SPECIMEN Ordering Facility: [facility] Address: [address] [place] [address] Performed By: #### 3 433-0 #### [facility] CLIA [id number] [address] [place] [address] [place] Creatinine [Mass/Vol] 0.74 mg/dL Normal 0.58-0.96 [facility] Comment on above: Order Comment: Speci men Type: BLOOD SPECIMEN Ordering Facility: [facility] Address: [address] [place] [address] Performed By: #### 3 433-0 #### [facility] CLIA [id number] [address] [place] [address] [place] eGFRcr SerPlBld CKD-EPI 2020 79 mL/min/1.73m??? Normal >=60 [facility] Comment on above: Order Comment: Speci men Type: BLOOD SPECIMEN Ordering Facility: [facility] Address: [address] [place] [address] Result Comment: Mora mated Glomerular Filtration Rate (eGFR) is calculated using the 2020 CKD-EPI creatinine equation. This equation utilizes serum creatinine, sex, and age as parameters. The creatinine assay has traceable calibration to isotope dilution-mass spectrometry. Refer to KDIGO guidelines for clinical interpretation. In patients with unstable renal function, e.g. those with acute kidney injury, the eGFR may not accurately reflect actual GFR. Performed By: #### 3 433-0 #### [facility] CLIA [id number] [address] [place], [place] [id number] [place] Glucose [Mass/Vol] 86 mg/dL Normal 74-99 [facility] Comment on above: Order Comment: Speci men Type: BLOOD SPECIMEN Ordering Facility: [facility] Address: [address] [place], [place] [id number] Result Comment: The [place] Diabetes Association (ADA) provides guidance for cutoff values for fasting glucose and random glucose. The ADA defines fasting as no caloric intake for at least 8 hours. Fasting plasma glucose results between 100 to 125 mg/dL indicate increased risk for diabetes (prediabetes). Fasting plasma glucose results greater than or equal to 126 mg/dL meet the criteria for diagnosis of diabetes. In the absence of unequivocal hyperglycemia, results should be confirmed by repeat testing. In a patient with classic symptoms of hyperglycemia or hyperglycemic crisis, random plasma glucose results greater than or equal to 200 mg/dL meet the criteria for diagnosis of diabetes. Reference: Standards of Medical Care in Diabetes 2016, [place] Diabetes Association. Diabetes Care. 2016.39(Suppl 1). Performed By: #### 3 433-0 #### [facility] CLIA [id number] [address] [place] [address] [place] Potassium [Moles/Vol] 4.3 mmol/L Normal 3.7-5.1 [facility] Comment on above: Order Comment: Amadoi men Type: BLOOD SPECIMEN Ordering Facility: [facility] Address: [address] [place] [address] Performed By: #### 3 433-0 #### [facility] CLIA [id number] [address] [place] [address] [place] Protein [Mass/Vol] 7.5 g/dL Normal 6.3-8.0 [facility] Comment on above: Order Comment: Amadoi men Type: BLOOD SPECIMEN Ordering Facility: [facility] Address: [address] [place] [address] Performed By: #### 3 433-0 #### [facility] CLIA [id number] [address] [place] [address] [place] Sodium [Moles/Vol] 134 mmol/L Low 136-144 [facility] Comment on above: Order Comment: Speci men Type: BLOOD SPECIMEN Ordering Facility: [facility] Address: [address] [place] [address] Performed By: #### 3 433-0 #### [facility] CLIA [id number] [address] [place] [address] [place] Urea nitrogen [Mass/Vol] 15 mg/dL Normal 7-21 [facility] Comment on above: Order Comment: Speci men Type: BLOOD SPECIMEN Ordering Facility: [facility] Address: [address] [place] [address] Performed By: #### 3 433-0 #### [facility] CLIA [id number] [address] [place] [address] [place] carBAMazepine SerPl-mCncon 0 03-08-2025 carBAMazepine [Mass/Vol] 10.9 ug/mL Normal 4.0-12.0 [facility] Comment on above: Order Comment: Speci men Type: BLOOD SPECIMEN Ordering Facility: [facility] Address: [address] [place] [address] Result Comment: Refe rence ranges and high/low indicator flags are provided as general guidelines only. The treating physician must determine appropriate target levels/dosing based on the specific clinical situation. Performed By: #### 3 432-2 #### [facility] CLIA [id number] [address] [place] [address] [place] carBAMazepine free SerPl-mCn con 03-08-2025 carBAMazepine free [Mass/Vol] 2.1 ug/mL Normal 0.8-2.4 [facility] Comment on above: Order Comment: Speci men Type: BLOOD SPECIMEN Ordering Facility: [facility] Address: [address] [place] [address] Result Comment: Refe rence ranges and high/low indicator flags are provided as general guidelines only. The treating physician must determine appropriate target levels/dosing based on the specific clinical situation. This test was developed, and its performance characteristics determined by the [facility] Department of Pathology and Laboratory Medicine. It has not been cleared or approved by the FDA. The [facility] Department of Pathology and Laboratory Medicine is regulated under CLIA as qualified to perform high-complexity testing. This test is used for clinical purposes. It should not be regarded as investigational or for research. Performed By: #### 3 433-0 #### [facility] CLIA [id number] [address] [place] [address] [place] Cardiovascular stress test r eportOrdered By: Olaf Mata on 02-01-2025 Study report [facility] [address] [place] [address] MR#: [id number] Acct: [id number] Name: KATRINA MANCINI Rep #: [id number] : 1940 84 From: Olaf Mata MD Primary Care: Dr. Magalys Mcclure MD Sta tus: REG CLI Referring Dr: Samir Forrest MD Sex: F C Stress Test Report Pharmacologic myocardial perfusion stress test. 84-year-old lady with a history of SVT. Resting EKG demonstrates normal sinus with a rate of 65 bpm. Resting blood pressure is 154/68 mmHg. 0.4 mg of regadenoson was infused per usual protocol followed by rapid intravenous saline flush injection. Continuous EKG monitoring was performed. The maximum heart rate was 108 bpm which was 80% of max impacted heart rate the maximum workload was 1 metabolic equivalent. At rest there were no ST or T wave changes noted to suggest ischemia and at peak infusion nonspecific ST changes were noted which did not meet the criteria for ischemia. No clinical angina is noted. The final blood pressure was 140/70 mmHg. Myocardial perfusion protocol. 11.5 mCi of technetium 99m sestamibi was injected at rest. 0.4 mg of regadenosonwas infused per usual protocol. At peak infusion 34 mCi of technetium 99m sestamibi was injected stress images were obtained stress and rest images were reconstructed and compared in the short axis vertical long and horizontal long axis. Gated images were also obtained. Perfusion SPECT analysis: Review of the stress images demonstrate normal uptake of tracer noted in all areas of the myocardium. The resting images similar demonstrated normal uptake of tracer noted in all areas of the myocardium. No areas of reversibility are noted to suggest ischemia and no previous infarct is noted. Gated SPECT analysis: The gated ejection fraction is 87%. Conclusion: Normal pharmacologic myocardial perfusion stress test. Preserved ejection fraction. 02/01/25 1318 Date _ Olaf Mata MD CC: Dr. Samir Forrest MD; Dr. Magalys Mcclure MD ~ Date Dictated: 02/01/251315 Date Transcribed: 02/01/251315 Dolly Operator: CO Signed [facility] Work Phone: Stress Reporton 02-01-2025 Stress Report [facility] [address] [place] [address] MR#: [id number] Acct: [id number] Name: KATRINA MANCINI Rep #: [id number] : 1940 84 From: Olaf Mata MD Primary Care: Dr. Magalys Mcclure MD Status: REG CLI Referring Dr: Samir Forrest MD Sex: F C Stress Test Report Pharmacologic myocardial perfusion stress test. 84-year-old lady with a history of SVT. Resting EKG demonstrates normal sinus with a rate of 65 bpm. Resting blood pressure is 154/68 mmHg. 0.4 mg of regadenoson was infused per usual protocol followed by rapid intravenous saline flush injection. Continuous EKG monitoring was performed. The maximum heart rate was 108 bpm which was 80% of max impacted heart rate the maximum workload was 1 metabolic equivalent. At rest there were no ST or T wave changes noted to suggest ischemia and at peak infusion nonspecific ST changes were noted which did not meet the criteria for ischemia. No clinical angina is noted. The final blood pressure was 140/70 mmHg. Myocardial perfusion protocol. 11.5 mCi of technetium 99m sestamibi was injected at rest. 0.4 mg of regadenoson was infused per usual protocol. At peak infusion 34 mCi of technetium 99m sestamibi was injected stress images were obtained stress and rest images were reconstructed and compared in the short axis vertical long and horizontal long axis. Gated images were also obtained. Perfusion SPECT analysis: Review of the stress images demonstrate normal uptake of tracer noted in all areas of the myocardium. The resting images similar demonstrated normal uptake of tracer noted in all areas of the myocardium. No areas of reversibility are noted to suggest ischemia and no previous infarct is noted. Gated SPECT analysis: The gated ejection fraction is 87%. Conclusion: Normal pharmacologic myocardial perfusion stress test. Preserved ejection fraction. 02/01/25 1318 Date Olaf Mata MD CC: Dr. Samir Forrest MD; Dr. Magalys Mcclure MD Date Dictated: 02/01/25 131 Date Transcribed: 02/01/251315 Dolly Operator: CO Signed Normal [facility] Echo Completeon 01-31-2025 Echo Complete [facility] [address] [place] [address] Echo Complete 01/31/25 0904 MR#: [id number] Acct: [id number] Name: KATRINA MANCINI Rep #: [id number] : 1940 84 From: Olaf Mata MD Attending Dr: Dr. Samir Forrest MD Status: REG CLI Ordering Dr: Samir Forrest MD Date: 01/31/25 Location: [facility] Sex: F C Admitted: Reason For Study Reason For Study: Other ill defined heart disease Procedure This was a 2D Doppler, Color Flow transthoracic echocardiogram. Exam performed in department. Left Ventricle Normal LV size. Mild concentric left ventricular hypertrophy. Left ventricular systolic function is normal. The left ventricular ejection fraction is 60 %. Stage 1 diastolic dysfunction. No regional wall motion abnormalities noted. Right Ventricle Normal RV size. Normal systolic function. Atria Normal left atrium. Normal right atrium. Mitral Valve Normal mitral valve. Tricuspid Valve Normal tricuspid valve. Mild (1+) tricuspid valve insufficiency. Pulmonary artery systolic pressure is 25 mmHg. Aortic Valve Trisinus/trileaflet aortic valve. Pulmonic Valve Normal pulmonic valve. Great Vessels Normal aortic root. The pulmonary artery is normal size. Inferior vena cava collapse with respiration. Pericardium/Pleural No pericardial effusion. MMode/2D Measurements Calculations LVIDd: 3.6 cm IVSd: 1.2 cm Ao root diam: 3.6 cm LVIDs: 2.3 cm LVPWd: 1.2 cm RVDd: 3.0 cm FS: 38.0 % LAV(MOD-bp): 46.1 ml LVAd ap4: 20.0 cm2 LVAd ap2: 20.0 cm2 LAV(MOD-bp) Indexed: 28.6 ml/m2 LVLd ap4: 7.0 cm LVLd ap2: 7.3 cm LAV(MOD-sp2): 42.9 ml EDV(MOD-sp4): 48.8 ml EDV(MOD-sp2): 44.8 ml LAV(MOD-sp4): 48.7 ml EDV(sp4-el): 48.5 ml EDV(sp2-el): 46.4 ml LVAs ap4: 11.0 cm2 LVAs ap2: 8.4 cm2 LVLs ap4: 5.8 cm LVLs ap2: 6.1 cm ESV(MOD-sp4): 18.8 ml ESV(MOD-sp2): 10.6 ml ESV(sp4-el): 17.9 ml ESV(sp2-el): 9.8 ml EF(MOD-sp4): 61.6 % EF(MOD-sp2): 76.3 % EF(sp4-el): 63.1 % SV(MOD-sp4): 30.1 ml SV(MOD-sp2): 34.2 ml SV(sp4-el): 30.6 ml SI(MOD-sp4): 18.6 ml/m2 SI(MOD-sp2): 21.2 ml/m2 LA A4 area: 17.3 cm2 LA dimension(2D): 3.2 cm RA A4 area: 11.2 cm2 TAPSE: 2.0 cm Time Measurements MV dec time: 0.20 sec Doppler Measurements Calculations MV E max uzair: 66.8 cm/sec Lat Peak E' Uzair: 5.9 cm/sec Med Peak E' Uzair: 5.4 cm/sec MV A max uzair: 95.8 cm/sec E/E' lat: 11.4 E/E' med: 12.3 MV E/A: 0.70 MV V2 max: 115.2 cm/sec MV P1/2t max uzair: 88.0 cm/sec Ao V2 max: 110.3 cm/sec MV max P.3 mmHg MV P1/2t: 66.0 msec Ao max P.9 mmHg MV V2 mean: 53.9 cm/sec Ao V2 mean: 87.3 cm/sec MV mean P.4 mmHg MV dec slope: 390.6 cm/sec2 Ao mean P.3 mmHg MV V2 VTI: 25.8 cm MVA(P1/2t): 3.3 cm2 Ao V2 VTI: 28.1 cm AV (velocity ratio): 0.86 LV V1 max: 92.1 cm/sec PA V2 max: 94.0 cm/sec LV V1 max P.4 mmHg PA V2 mean: 70.9 cm/sec PI dec slope: 209.5 cm/sec2 LV V1 mean P.2 mmHg LV V1 mean: 70.9 cm/sec LV V1 VTI: 24.3 cm TR max uzair: 234.4 cm/sec TR max P.0 mmHg ECHO/Echo Complete Interpretation Summary Normal LV size. Left ventricular systolic function is normal. The left ventricular ejection fraction is 60 %. Stage 1 diastolic dysfunction. Mild concentric left ventricular hypertrophy. Structurally normal valves. Ordering Physician: Samir Forrest Referring Physician: Magalys Mcclure Performed By: Fallon Barnett RDCS, RVT 01/31/25 1212 Date Olaf Mata MD CC: Dr. Samir Forrest MD; Dr. Magalys Mcclure MD Date Dictated: 01/31/25 0904 Date Transcribed: 01/31/25 121 Dolly Operator: Signed Normal [facility] Echocardiogram study reportO rdered By: Olaf Mata on 01-31-2025 Study report [facility] [address] [place] [address] Echo Complete 01/31/25903 MR#: [id number] Acct: [id number] Name: KATRINA MANCINI Rep #:[id number] : 1940 84 From: Olaf Muñoz Attending Dr: Dr. Samir Forrest MD Status: REG CLI Ordering Dr: Samir Forrest MD Date: Location: [facility] Sex: F C Admitted: Reason For Study Reason For Study: Other ill defined heart disease Procedure This was a 2D Doppler, Color Flow transthoracic echocardiogram. Exam performed in department. Left Ventricle Normal LV size. Mild concentric left ventricular hypertrophy. Left ventricular systolic function is normal. The left ventricular ejection fraction is 60 %. Stage 1 diastolic dysfunction. No regional wall motion abnormalities noted. Right Ventricle Normal RV size. Normal systolic function. Atria Normal left atrium. Normal right atrium. Mitral Valve Normal mitral valve. Tricuspid Valve Normal tricuspid valve. Mild (1+) tricuspid valve insufficiency. Pulmonary artery systolic pressure is 25 mmHg. Aortic Valve Trisinus/trileaflet aortic valve. Pulmonic Valve Normal pulmonic valve. Great Vessels Normal aortic root. The pulmonary artery is normal size. Inferior vena cava collapse with respiration. Pericardium/Pleural No pericardial effusion. MMode/2D Measurements & Calculations LVIDd: 3.6 cm IVSd: 1.2 cm Ao root diam: 3.6 cm LVIDs: 2.3 cm LVPWd: 1.2 cm RVDd: 3.0 cm FS: 38.0 % LAV(MOD-bp): 46.1 ml LVAd ap4: 20.0 cm2 LVAd ap2: 20.0 cm2 LAV(MOD-bp) Indexed: 28.6 ml/m2 LVLd ap4: 7.0 cm LVLd ap2: 7.3 cm LAV(MOD-sp2): 42.9 ml EDV(MOD-sp4): 48.8 ml EDV(MOD-sp2): 44.8 ml LAV(MOD-sp4): 48.7 ml EDV(sp4-el): 48.5 ml EDV(sp2-el): 46.4 ml LVAs ap4: 11.0 cm2 LVAs ap2: 8.4 cm2 LVLs ap4: 5.8 cm LVLs ap2: 6.1 cm ESV(MOD-sp4): 18.8 ml ESV(MOD-sp2): 10.6 ml ESV(sp4-el): 17.9 ml ESV(sp2-el): 9.8 ml EF(MOD-sp4): 61.6 % EF(MOD-sp2): 76.3 % EF(sp4-el): 63.1 % SV(MOD-sp4): 30.1 ml SV(MOD-sp2): 34.2 ml SV(sp4-el): 30.6 ml SI(MOD-sp4): 18.6 ml/m2 SI(MOD-sp2): 21.2 ml/m2 LA A4 area: 17.3 cm2 LA dimension(2D): 3.2 cm RA A4 area: 11.2 cm2 ____ TAPSE: 2.0 cm Time Measurements MV dec time: 0.20 sec Doppler Measurements & Calculations MV E max uzair: 66.8 cm/sec Lat Peak E' Uzair: 5.9 cm/sec Med Peak E' Uzair: 5.4 cm/sec MV A max uzair: 95.8 cm/sec E/E' lat: 11.4 E/E' med: 12.3 MV E/A: 0.70 MV V2 max: 115.2 cm/sec MV P1/2t max uzair: 88.0 cm/sec Ao V2 max: 110.3 cm/sec MV max P.3 mmHg MV P1/2t: 66.0 msec Ao max P.9 mmHg MV V2 mean: 53.9 cm/sec Ao V2 mean: 87.3 cm/sec MV mean P.4 mmHg MV dec slope: 390.6 cm/sec2 Ao mean P.3 mmHg MV V2 VTI: 25.8 cm MVA(P1/2t): 3.3 cm2 Ao V2 VTI: 28.1 cm AV (velocity ratio): 0.86 LV V1 max: 92.1 cm/sec PA V2 max: 94.0 cm/sec LV V1 max P.4 mmHg PA V2 mean: 70.9 cm/sec PI dec slope: 209.5 cm/sec2 LV V1 mean P.2 mmHg LV V1 mean: 70.9 cm/sec LV V1 VTI: 24.3 cm TR max uzair: 234.4 cm/sec TR max P.0 mmHg ECHO/Echo Complete Interpretation Summary Normal LV size. Left ventricular systolic function is normal. The left ventricular ejection fraction is 60 %. Stage 1 diastolic dysfunction. Mild concentric left ventricular hypertrophy. Structurally normal valves. Ordering Physician: Samir Forrest Referring Physician: Magalys Mcclure Performed By: Fallon Barnett, RDCS, RVT 01/31/25 1212 Date _ Olaf Mata MD CC: Dr. Samir Forrest MD; Dr. Magalys Mcclure MD ~ Date Dictated: 01/31/25903 Date Transcribed: 01/31/251211 Dolly Operator: Signed [facility] Work Phone: AAA Screeningon 01-21-2025 AAA Screening [facility] [address] [place] [address] AAA Screening 01/21/25 0848 MR#: [id number] Acct: [id number] Name: KATRINA MANCINI Rep #: [id number] : 1940 84 From: Tristen Calloway MD [...] Mcclure MD Date Dictated: 01/21/2548 Date Transcribed: 01/21/25 111 Dolly Operator: Signed Normal [facility] Cardiovascular ultrasound re portOrdered By: Tristen Calloway on 01-21-2025 Study report [facility] [address] [place] [address] AAA Screening 01/21/2548 MR#: [id number] Acct: [id number] Name: KATRINA MANCINI Rep #:[id number] : 1940 84 From: Tristen Muñoz Attending [...] Physician: Magalys Mcclure Performed By: Vivian Monaco T 01/21/25 1113 Date _ Tristen Calloway MD CC: Dr. aSmir Forrest MD; Dr. Magalys Mcclure MD ~ Date Dictated: 01/21/25 0848 Date Transcribed: 01/21/25 1113 Dolly Operator: Signed [facility] Work Phone: Cardiology Visit Reporton Cardiology Visit Report [facility] [address] [place] [address] OFFICE VISIT Date of Service: 01/02/25 MR#: [id number] Acct: [id number] Name: KATRINA MANCINI Rep #: [id number] : 1940 Provider: Dr. Samir Forrest MD Age/Sex: 84/F Location: [facility] Status: Signed HPI HPI History of Present [...] air Intake Visit Reasons: 6 M FU Editing Intern Required: No Accompanied by: Self Is patient [...] you fallen in the past year?: Yes PFSH Medical History (Updated 01/02/25 @ 13:17 by [...] No Palpitations (more content not included)... Normal [facility] 12-19-2024 [facility] Telephone (SLEWST) KATRINA MANCINI ([id number]) 1940 F Date Time Provider Department 12/19/24 AB SHAFFER JR SLESTEPHANIE During your visit today, we recorded the [...] SULFA (SULFONAMIDE ANTIBIOTICS) 10/17/2002 Comments: nasea vomtting [id number] ANTIMIGRAINE [id number]/17/2002 Comments: heart palpitations Date Reviewed: 03/02/2024 Reviewed by: Ab Shaffer Jr., MD - Fully Assessed Reason for Visit: Dr Mcclure office should lesley faxing overnight pulse ox norma [Other] Primary Visit Diagnosis:MELA (obstructive sleep apnea) [G47.33] Order(s):HOME SLEEP APNEA TEST (HSAT) [0330142] Order #: [id number] FUTURE Prescriptions as of 12/25/2024 - carBAMazepine [...] Status:Closed by AB SHAFFER on 12/21/24 Normal [facility] Absolute lymphocyte countOrd ered By: Magalys Mcclure on 11-20-2024 Lymphocytes Auto (Unsp spec) [#/Vol] 1.01 10*3/uL 0.83-4.51 [facility] Absolute neutrophil countOrd ered By: Magalys Mcclure on 11-20-2024 Neutrophils (Bld) [#/Vol] 3.2 10*3/uL 2.0-7.7 [facility] Anion gap in Serum or Plasma Ordered By: Magalys Mcclure on 11-20-2024 Anion gap [Moles/Vol] 11 mmol/L - [facility] Automated lymphocyte count a s percentage of total leukocytesOrdered By: Magalys Mcclure on 11-20-2024 Lymphocytes/100 WBC Auto (Unsp spec) 20.7 % - [facility] BUN/creatinine ratioOrdered By: Magalys Mcclure on 11-20-2024 Urea nitrogen/Creatinine [Mass ratio] 26.4 mg/mg High 10- [facility] Basophil percentageOrdered B y: Magalys Mcclure on 11-20-2024 Basophils/100 WBC (Bld) 0.6 % 0- [facility] Bilirubin, totalOrdered By: Magalys Mcclure on 11-20-2024 Bilirubin [Mass/Vol] 0.21 mg/dL 0.00-1.30 [facility] CBC W/Diff, Automatedon 11-11 Absolute Lymph 1.01 X10 3/uL Normal 0.83-4.51 [facility] Comment on above: Order Comment: Order Date: 11/20/24Order Info: 0184-1 - CBCD Performed By: #### L 500.4100, L100.0100, L500.4050 ####[facility] [address] [place], [address] Absolute Neut 3.2 X10 3/uL Normal 2.0-7.7 [facility] Comment on above: Order Comment: Order Date: 11/20/24Order Info: 0184-1 - CBCD Performed By: #### L 500.4100, L100.0100, L500.4050 ####[facility] [address] [place], [address] Basophils/100 WBC (Bld) 0.6 % Normal 0-1 [facility] Comment on above: Order Comment: Order Date: 11/20/24Order Info: 018- - CBCD Performed By: #### L 500.4100, L100.0100, L500.4050 ####[facility] [address] [place], [address] Eosinophils/100 WBC (Bld) 1.8 % Normal 0-5 [facility] Comment on above: Order Comment: Order Date: 11/20/24Order Info: 0184-1 - CBCD Performed By: #### L 500.4100, L100.0100, L500.4050 ####[facility] [address] [place], [address] Erythrocyte distribution width (RBC) [Ratio] 11.7 % Normal 11.6-14.6 [facility] Comment on above: Order Comment: Order Date: 11/20/24Order Info: 0184-1 - CBCD Performed By: #### L 500.4100, L100.0100, L500.4050 ####[facility] [address] [place], [address] Hematocrit (Bld) [Volume fraction] 38.0 % Normal 37-47 [facility] Comment on above: Order Comment: Order Date: 11/20/24Order Info: 018-1 - CBCD Performed By: #### L 500.4100, L100.0100, L500.4050 ####[facility] [address] [place], [address] Hemoglobin (Bld) [Mass/Vol] 13.3 g/dL Normal 12.0-15.0 [facility] Comment on above: Order Comment: Order Date: 11/20/24Order Info: 018- - CBCD Performed By: #### L 500.4100, L100.0100, L500.4050 ####[facility] [address] [place], [address] IG% 0.400 Normal 0.0-0.9 [facility] Comment on above: Order Comment: Order Date: 11/20/24Order Info: 018- - CBCD Result Comment: IG% - Immature Granulocytes (promyelocytes, myelocytes and metamyelocytes) > 1% indicates that a LEFT SHIFT is Present. Performed By: #### L 500.4100, L100.0100, L500.4050 ####[facility] [address] [place], [address] Lymphocytes/100 WBC (Bld) 20.7 % Normal 19-41 [facility] Comment on above: Order Comment: Order Date: 11/20/24Order Info: 018- - CBCD Performed By: #### L 500.4100, L100.0100, L500.4050 ####[facility] [address] [place], [address] MCH (RBC) [Entitic mass] 33.9 pg High 27.0-32.0 [facility] Comment on above: Order Comment: Order Date: 11/20/24Order Info: 0184-1 - CBCD Performed By: #### L 500.4100, L100.0100, L500.4050 ####[facility] [address] [place], [address] MCHC (RBC) [Mass/Vol] 35.0 g/dL Normal 32-36 [facility] Comment on above: Order Comment: Order Date: 11/20/24Order Info: 0184-1 - CBCD Performed By: #### L 500.4100, L100.0100, L500.4050 ####[facility] [address] [place], [address] MCV (RBC) [Entitic vol] 96.9 fL Normal 81-99 [facility] Comment on above: Order Comment: Order Date: 11/20/24Order Info: 0184-1 - CBCD Performed By: #### L 500.4100, L100.0100, L500.4050 ####[facility] [address] [place], [address] Monocytes/100 WBC (Bld) 11.3 % High 0-10 [facility] Comment on above: Order Comment: Order Date: 11/20/24Order Info: 0184-1 - CBCD Performed By: #### L 500.4100, L100.0100, L500.4050 ####[facility] [address] [place], [address] Neutrophils/100 WBC (Bld) 65.2 % Normal 47-70 [facility] Comment on above: Order Comment: Order Date: 11/20/24Order Info: 0184-1 - CBCD Performed By: #### L 500.4100, L100.0100, L500.4050 ####[facility] [address] [place], [address] Nucleated RBC (Bld) [#/Vol] 0 10*3/uL Normal 0-5 [facility] Comment on above: Order Comment: Order Date: 11/20/24Order Info: 0184-1 - CBCD Performed By: #### L 500.4100, L100.0100, L500.4050 ####[facility] [address] [place], [address] Platelet mean volume (Bld) [Entitic vol] 9.0 fL Normal 6.2-12.0 [facility] Comment on above: Order Comment: Order Date: 11/20/24Order Info: 0184-1 - CBCD Performed By: #### L 500.4100, L100.0100, L500.4050 ####[facility] [address] [place], [address] Platelets (Bld) [#/Vol] 319 10*3/uL Normal 150-450 [facility] Comment on above: Order Comment: Order Date: 11/20/24Order Info: 0184-1 - CBCD Performed By: #### L 500.4100, L100.0100, L500.4050 ####[facility] [address] [place], [address] RBC (Bld) [#/Vol] 3.92 10*6/uL Low 4.2-5.4 [facility] Comment on above: Order Comment: Order Date: 11/20/24Order Info: 0184-1 - CBCD Performed By: #### L 500.4100, L100.0100, L500.4050 ####[facility] [address] [place], [address] RDW SD 41.4 fl Normal 35.1-43.9 [facility] Comment on above: Order Comment: Order Date: 11/20/24Order Info: 0184-1 - CBCD Performed By: #### L 500.4100, L100.0100, L500.4050 ####[facility] [address] [place], [address] WBC (Bld) [#/Vol] 4.9 10*3/uL Normal 4.4-11.0 [facility] Comment on above: Order Comment: Order Date: 11/20/24Order Info: 0184-1 - CBCD Performed By: #### L 500.4100, L100.0100, L500.4050 ####[facility] [address] [place], [address] Calculated very low density lipoprotein (VLDL) cholesterol measurementOrdered By: Magalys Mcclure on 11-20-2024 Calculated very low density lipoprotein (VLDL) cholesterol measurement 52 mg/dL High 5-40 [facility] Carbon dioxide, total [Moles /volume] in Central venous bloodOrdered By: Magalys Mcclure on 11-20-2024 CO2 [Moles/Vol] 27.5 mmol/L 21.0-32.0 [facility] Chloride assayOrdered By: Beverly Mcclure on 11-20-2024 Chloride [Moles/Vol] 93 mmol/L Low 98-108 [facility] Comprehensive Metabolic Prof ilon 11-20-2024 Albumin [Mass/Vol] 4.7 g/dL Normal 3.4-4.8 [facility] Comment on above: Order Comment: Order Date: 11/20/24Order Info: 0786-1 - CMPOrder Info: [id number] - LIPID Performed By: #### L 500.4100, L100.0100, L500.4050 ####[facility] [address] [place], [address] Albumin/Globulin [Mass ratio] 1.8 {ratio} Normal 0.9-2.4 [facility] Comment on above: Order Comment: Order Date: 11/20/24Order Info: [id number] - CMPOrder Info: [id number] - LIPID Performed By: #### L 500.4100, L100.0100, L500.4050 ####[facility] [address] [place], [address] ALK PHOS 101 U/L Normal 35-104 [facility] Comment on above: Order Comment: Order Date: 11/20/24Order Info: [id number] - CMPOrder Info: [id number] - LIPID Performed By: #### L 500.4100, L100.0100, L500.4050 ####[facility] [address] [place], [address] ALT [Catalytic activity/Vol] 21 U/L Normal <=34 [facility] Comment on above: Order Comment: Order Date: 11/20/24Order Info: 0786-1 - CMPOrder Info: [id number] - LIPID Performed By: #### L 500.4100, L100.0100, L500.4050 ####[facility] [address] [place], [address] AST [Catalytic activity/Vol] 26 U/L Normal <=31 [facility] Comment on above: Order Comment: Order Date: 11/20/24Order Info: 0786- - CMPOrder Info: [id number] - LIPID Performed By: #### L 500.4100, L100.0100, L500.4050 ####[facility] [address] [place], [address] Bilirubin [Mass/Vol] 0.21 mg/dL Normal 0.00-1.30 [facility] Comment on above: Order Comment: Order Date: 11/20/24Order Info: 0786-1 - CMPOrder Info: [id number] - LIPID Performed By: #### L 500.4100, L100.0100, L500.4050 ####[facility] [address] [place], [address] BUN/CRE 26.4 RATIO High 10-20 [facility] Comment on above: Order Comment: Order Date: 11/20/24Order Info: [id number] - CMPOrder Info: [id number] - LIPID Performed By: #### L 500.4100, L100.0100, L500.4050 ####[facility] [address] [place], [address] Calcium [Mass/Vol] 9.7 mg/dL Normal 7.6-11.0 [facility] Comment on above: Order Comment: Order Date: 11/20/24Order Info: [id number] - CMPOrder Info: [id number] - LIPID Performed By: #### L 500.4100, L100.0100, L500.4050 ####[facility] [address] [place], [address] Chloride [Moles/Vol] 93 mmol/L Low 98-108 [facility] Comment on above: Order Comment: Order Date: 11/20/24Order Info: [id number] - CMPOrder Info: [id number] - LIPID Performed By: #### L 500.4100, L100.0100, L500.4050 ####[facility] [address] [place], [address] CO2 [Moles/Vol] 27.5 mmol/L Normal 21.0-32.0 [facility] Comment on above: Order Comment: Order Date: 11/20/24Order Info: [id number] - CMPOrder Info: [id number] - LIPID Performed By: #### L 500.4100, L100.0100, L500.4050 ####[facility] [address] [place], [address] Creatinine [Mass/Vol] 0.75 mg/dL Normal 0.70-1.20 [facility] Comment on above: Order Comment: Order Date: 11/20/24Order Info: [id number] - CMPOrder Info: [id number] - LIPID Performed By: #### L 500.4100, L100.0100, L500.4050 ####[facility] [address] [place], [address] GAP 11 Normal 5-15 [facility] Comment on above: Order Comment: Order Date: 11/20/24Order Info: [id number] - CMPOrder Info: [id number] - LIPID Performed By: #### L 500.4100, L100.0100, L500.4050 ####[facility] [address] [place], [address] GFR/1.73 sq M.predicted among non-blacks MDRD (S/P/Bld) [Vol rate/Area] 77 mL/min/{1.73_m2} Normal >60 [facility] Comment on above: Order Comment: Order Date: 11/20/24Order Info: [id number] - CMPOrder Info: [id number] - LIPID Result Comment: mL/m in/1.73m2 CKD-EPI Creatinine Equation (2020) Performed By: #### L 500.4100, L100.0100, L500.4050 ####[facility] [address] [place], [address] Globulin (S) [Mass/Vol] 2.6 g/dL Normal 2.2-4.2 [facility] Comment on above: Order Comment: Order Date: 11/20/24Order Info: [id number] - CMPOrder Info: [id number] - LIPID Performed By: #### L 500.4100, L100.0100, L500.4050 ####[facility] [address] [place], [address] Glucose [Mass/Vol] 96 mg/dL Normal 70-99 [facility] Comment on above: Order Comment: Order Date: 11/20/24Order Info: [id number] - CMPOrder Info: [id number] - LIPID Performed By: #### L 500.4100, L100.0100, L500.4050 ####[facility] [address] [place], [address] Potassium [Moles/Vol] 4.1 mmol/L Normal 3.3-5.1 [facility] Comment on above: Order Comment: Order Date: 11/20/24Order Info: [id number] - CMPOrder Info: [id number] - LIPID Performed By: #### L 500.4100, L100.0100, L500.4050 ####[facility] [address] [place], [address] Sodium [Moles/Vol] 132 mmol/L Low 133-145 [facility] Comment on above: Order Comment: Order Date: 11/20/24Order Info: [id number] - CMPOrder Info: [id number] - LIPID Performed By: #### L 500.4100, L100.0100, L500.4050 ####[facility] [address] [place], [address] T PROT 7.2 g/dL Normal 5.9-8.4 [facility] Comment on above: Order Comment: Order Date: 11/20/24Order Info: 07- - CMPOrder Info: [id number] - LIPID Performed By: #### L 500.4100, L100.0100, L500.4050 ####[facility] [address] [place], [address] Urea nitrogen [Mass/Vol] 20 mg/dL High 4-19 [facility] Comment on above: Order Comment: Order Date: 11/20/24Order Info: 0786- - CMPOrder Info: [id number] - LIPID Performed By: #### L 500.4100, L100.0100, L500.4050 ####[facility] [address] [place], [address] Eosinophil percentageOrdered By: Magalys Mcclure on 11-20-2024 Eosinophils/100 WBC (Bld) 1.8 % 0-5 [facility] Erythrocyte distribution wid th ratioOrdered By: Magalys Mcclure on 11-20-2024 Erythrocyte distribution width (RBC) [Ratio] 11.7 % 11.6-14.6 [facility] Erythrocyte distribution wid th standard deviationOrdered By: Magalys Mcclure on 11-20-2024 Erythrocyte distribution width (RBC) [Ratio] 41.4 fl 35.1-43.9 [facility] Glomerular filtration rate ( GFR) estimation/1.73 sq m using serum, plasma, or whole bOrdered By: Magalys Mcclure on 11-20-2024 GFR/1.73 sq M.predicted among non-blacks MDRD (S/P/Bld) [Vol rate/Area] 77 mL/min/{1.73_m2} >60 [facility] Comment on above: mL/min/1.73m2 CKD-EP I Creatinine Equation (2020) Hematocrit Auto (Bld) [Volum e fraction]Ordered By: Magalys Mcclure on 11-20-2024 Hematocrit (Bld) [Volume fraction] 38.0 % 37-47 [facility] Hemoglobin measurementOrdere d By: Magalys Mcclure on 11-20-2024 Hemoglobin (Bld) [Mass/Vol] 13.3 g/dL 12.0-15.0 [facility] Immature granulocytes/100 WB C Auto (Bld)Ordered By: Magalys Mcclure on 11-20-2024 Immature granulocytes/100 WBC (Bld) 0.400 % 0.0-0.9 [facility] Comment on above: IG% - Immature Granu locytes (promyelocytes, myelocytes and metamyelocytes) > 1% indicates that a LEFT SHIFT is Present. LDL calc ser/plasOrdered By: Magalys Mcclure on 11-20-2024 Cholesterol in LDL [Mass/Vol] 82 mg/dL [facility] Comment on above: Gamudvidrz=792-340 m g/dL & Higher Cxkr=579 mg/dL or greater Laboratory - Chemistry and C hemistry - challengeOrdered By: Magalys Mcclure on 11-20-2024 AST [Catalytic activity/Vol] 26 U/L <32 [facility] Lipid Profileon 11-20-2024 CHOL:HDL 3.32 Normal [facility] Comment on above: Order Comment: Order Date: 11/20/24Order Info: [id number] - CMPOrder Info: [id number] - LIPID Performed By: #### L 500.4100, L100.0100, L500.4050 ####[facility] [address] [place], [address] Cholesterol [Mass/Vol] 191 mg/dL Normal <=200 [facility] Comment on above: Order Comment: Order Date: 11/20/24Order Info: [id number] - CMPOrder Info: [id number] - LIPID Result Comment: Chol esterol level, Desirable <200 mg/dL Borderline high cholesterol 200-239 mg/dL High cholesterol >=240 mg/dL Recommendations of the NCEP Adult Treatment Panel for the following risk-cutoff thresholds for the [place] population. Performed By: #### L 500.4100, L100.0100, L500.4050 ####[facility] [address] [place], [address] Cholesterol in HDL [Mass/Vol] 58 mg/dL Normal [facility] Comment on above: Order Comment: Order Date: 11/20/24Order Info: 0786- - CMPOrder Info: [id number] - LIPID Result Comment: Luli onal Cholesterol Education Program (NCEP) guidelines: <40 mg/dL: Low HDL-cholesterol (major risk factor for CHD) >= 60 mg/dL: High HDL-cholesterol (negative risk factor for CHD) HDL-cholesterol is affected by a number of factors, e.g. smoking, exercise, hormones, sex and age. Performed By: #### L 500.4100, L100.0100, L500.4050 ####[facility] [address] [place], [address] Cholesterol in LDL [Mass/Vol] 82 mg/dL Normal [facility] Comment on above: Order Comment: Order Date: 11/20/24Order Info: [id number] - CMPOrder Info: [id number] - LIPID Result Comment: Bord tdmwad=662-621 mg/dL Higher Xqzz=946 mg/dL or greater Performed By: #### L 500.4100, L100.0100, L500.4050 ####[facility] [address] [place], [address] Cholesterol in VLDL [Mass/Vol] 52 mg/dL High 5-40 [facility] Comment on above: Order Comment: Order Date: 11/20/24Order Info: [id number] - CMPOrder Info: [id number] - LIPID Performed By: #### L 500.4100, L100.0100, L500.4050 ####[facility] [address] [place], [address] Triglyceride [Mass/Vol] 260 mg/dL High [facility] Comment on above: Order Comment: Order Date: 11/20/24Order Info: [id number] - CMPOrder Info: [id number] - LIPID Result Comment: The drugs N-Acetylcysteine and Metamizole may falsely depress this assay. Normal range: <150 mg/dL Borderline High: 150-199 mg/dL High: 200-499 mg/dL Very High: >500 mg/dL Performed By: #### L 500.4100, L100.0100, L500.4050 ####[facility] [address] [place], [address] MCV (mean corpuscular volume ) determinationOrdered By: Magalys Mcclure on 11-20-2024 MCV (RBC) [Entitic vol] 96.9 fL 81-99 [facility] Mean corpuscular hemoglobin (MCH) determinationOrdered By: Magalys Mcclure on 11-20-2024 MCH (RBC) [Entitic mass] 33.9 pg High 27.0-32.0 [facility] Mean corpuscular hemoglobin concentration (MCHC) determinationOrdered By: Magalys Mcclure on 11-20-2024 MCHC (RBC) [Mass/Vol] 35.0 g/dL 32-36 [facility] Mean platelet volume determi nationOrdered By: Magalys Mcclure on 11-20-2024 Platelet mean volume (Bld) [Entitic vol] 9.0 fL 6.2-12.0 [facility] Monocyte percentageOrdered B y: Magalys Mcclure on 11-20-2024 Monocytes/100 WBC (Bld) 11.3 % High 0-10 [facility] Neutrophil percentageOrdered By: Magalys Mcclure on 11-20-2024 Neutrophils/100 WBC (Bld) 65.2 % 47-70 [facility] Nucleated red blood cell per centageOrdered By: Magalys Mcclure on 06-10-2025 Nucleated RBC/100 WBC (Bld) [Ratio] 0 % 0-5 [facility] Platelet countOrdered By: Beverly Mcclure on 11-20-2024 Platelets (Bld) [#/Vol] 319 10*3/uL 150-450 [facility] Potassium measurement (mass/ volume)Ordered By: Magalys Mcclure on 11-20-2024 Potassium (Unsp spec) [Mass/Vol] 4.1 mmol/L 3.3-5.1 [facility] RBC Auto (Bld) [#/Vol]Ordere d By: Magalys Mcclure on 11-20-2024 RBC (Bld) [#/Vol] 3.92 10*6/uL Low 4.2-5.4 [facility] Screening total cholesterol/ high density lipoprotein (HDL) cholesterol ratioOrdered By: Magalys Mcclure on 11-20-2024 Cholesterol.total/Marcelina sterol in HDL [Mass ratio] 3.32 {ratio} [facility] Serum creatinine measurement (mass/volume)Ordered By: Magalys Mcclure on 11-20-2024 Creatinine [Mass/Vol] 0.75 mg/dL 0.70-1.20 [facility] Serum globulin measurementOr dered By: Magalys Mcclure on 11-20-2024 Globulin (S) [Mass/Vol] 2.6 g/dL 2.2-4.2 [facility] Serum glucose measurement (m ass/volume)Ordered By: Magalys Mcclure on 11-20-2024 Glucose [Mass/Vol] 96 mg/dL 70-99 [facility] Serum or plasma alanine meraz otransferase (ALT) measurementOrdered By: Magalys Mcclure on 11-20-2024 ALT [Catalytic activity/Vol] 21 U/L <35 [facility] Serum or plasma albumin julius urement (mass/volume)Ordered By: Magalys Mcclure on 11-20-2024 Albumin [Mass/Vol] 4.7 g/dL 3.4-4.8 [facility] Serum or plasma albumin/glob ulin mass ratioOrdered By: Magalys Mcclure on 11-20-2024 Albumin/Globulin [Mass ratio] 1.8 {ratio} 0.9-2.4 [facility] [facility] Serum or plasma alkaline vandana sphatase measurementOrdered By: Magalys Mcclure on 11-20-2024 ALP [Catalytic activity/Vol] 101 U/L 35-104 [facility] Serum or plasma calcium julius urement (mass/volume)Ordered By: Magalys Mcclure on 11-20-2024 Calcium [Mass/Vol] 9.7 mg/dL 7.6-11.0 [facility] Serum or plasma cholesterol in HDL measurement (mass/volume)Ordered By: Magalys Mcclure on 11-20-2024 Cholesterol in HDL [Mass/Vol] 58 mg/dL >40 [facility] Comment on above: National Cholesterol Education Program (NCEP) guidelines:<40 mg/dL: Low HDL-cholesterol (major risk factor for CHD)>= 60 mg/dL: High HDL-cholesterol (negative risk factor for CHD)HDL-cholesterol is affected by a number of factors, e.g. smoking, exercise, hormones, sex and age. Serum or plasma cholesterol measurement (mass/volume)Ordered By: Magalys Mcclure on 11-20-2024 Cholesterol [Mass/Vol] 191 mg/dL <201 [facility] Comment on above: Cholesterol level, D esirable <200 mg/dLBorderline high cholesterol 200-239 mg/dLHigh cholesterol >=240 mg/dLRecommendations of the NCEP Adult Treatment Panel for the following risk-cutoff thresholds for the [place] population. Serum or plasma urea nitroge n measurement (mass/volume)Ordered By: Magalys Mcclure on 11-20-2024 Urea nitrogen [Mass/Vol] 20 mg/dL High 4-19 [facility] Sodium levelOrdered By: Magalys Mcclure on 11-20-2024 Sodium [Moles/Vol] 132 mmol/L Low 133-145 [facility] Total proteinOrdered By: Kojo Mcclure on 11-20-2024 Protein [Mass/Vol] 7.2 g/dL 5.9-8.4 [facility] Triglycerides measurementOrd ered By: Magalys Mcclure on 11-20-2024 Triglyceride [Mass/Vol] 260 mg/dL High <199 [facility] Comment on above: The drugs N-Acetylcy steine and Metamizole may falsely depress this assay. Normal range: <150 mg/dLBorderline High: 150-199 mg/dLHigh: 200-499 mg/dLVery High: >500 mg/dL Vitamin D,25 Hydroxyon 11-20 Vitamin D 25-OH 37.5 ng/mL Normal 30-100 [facility] Comment on above: Order Comment: Order Date: 11/20/24Order Info: [id number] - CMPOrder Info: [id number] - LIPID Result Comment: Milagros min D Status Deficiency: <20 ng/mL (50nmol/L) Insufficiency: 20-30 ng/mL (50-75 nmol/L) Sufficiency: 30-100 ng/mL (75-250 nmol/L) Toxicity: >100 ng/mL (>250 nmol/L) Performed By: #### L 506.1001 ####[facility] [address] [place], [place], [id number] White blood cell (WBC) count Ordered By: Magalys Mcclure on 11-20-2024 WBC (Bld) [#/Vol] 4.9 10*3/uL 4.4-11.0 [facility] Anion gap in Serum or Plasma Ordered By: Samir Forrest on 08-16-2024 Anion gap [Moles/Vol] 13 mmol/L 5-15 [facility] BUN/creatinine ratioOrdered By: Samir Forrest on 08-16-2024 Urea nitrogen/Creatinine [Mass ratio] 19.6 mg/mg 10-20 [facility] Bilirubin, totalOrdered By: Samir Forrest on 08-16-2024 Bilirubin [Mass/Vol] 0.26 mg/dL 0.00-1.30 [facility] CBC-Complete Blood Cnt No Di ffon 08-16-2024 Erythrocyte distribution width (RBC) [Ratio] 11.3 % Low 11.6-14.6 [facility] Comment on above: Performed By: #### L 501.3620, L501.9520, L500.4050, L100.0500 #### [facility] [address] [place], [place], [id number] Hematocrit (Bld) [Volume fraction] 39.4 % Normal 37-47 [facility] Comment on above: Performed By: #### L 501.3620, L501.9520, L500.4050, L100.0500 #### [facility] [address] [place], [address] Hemoglobin (Bld) [Mass/Vol] 13.5 g/dL Normal 12.0-15.0 [facility] Comment on above: Performed By: #### L 501.3620, L501.9520, L500.4050, L100.0500 #### [facility] [address] [place], [address] MCH (RBC) [Entitic mass] 33.6 pg High 27.0-32.0 [facility] Comment on above: Performed By: #### L 501.3620, L501.9520, L500.4050, L100.0500 #### [facility] [address] [place], [address] MCHC (RBC) [Mass/Vol] 34.3 g/dL Normal 32-36 [facility] Comment on above: Performed By: #### L 501.3620, L501.9520, L500.4050, L100.0500 #### [facility] [address] [place], [address] MCV (RBC) [Entitic vol] 98.0 fL Normal 81-99 [facility] Comment on above: Performed By: #### L 501.3620, L501.9520, L500.4050, L100.0500 #### [facility] [address] [place], [address] Platelet mean volume (Bld) [Entitic vol] 8.9 fL Normal 6.2-12.0 [facility] Comment on above: Performed By: #### L 501.3620, L501.9520, L500.4050, L100.0500 #### [facility] [address] [place], [address] Platelets (Bld) [#/Vol] 299 10*3/uL Normal 150-450 [facility] Comment on above: Performed By: #### L 501.3620, L501.9520, L500.4050, L100.0500 #### [facility] [address] [place], [address] RBC (Bld) [#/Vol] 4.02 10*6/uL Low 4.2-5.4 [facility] Comment on above: Performed By: #### L 501.3620, L501.9520, L500.4050, L100.0500 #### [facility] [address] [place], [address] RDW SD 41.0 fl Normal 35.1-43.9 [facility] Comment on above: Performed By: #### L 501.3620, L501.9520, L500.4050, L100.0500 #### [facility] [address] [place], [address] WBC (Bld) [#/Vol] 4.1 10*3/uL Low 4.4-11.0 [facility] Comment on above: Performed By: #### L 501.3620, L501.9520, L500.4050, L100.0500 #### [facility] [address] [place], [address] CPK Total, Creatine Kinaseon 08-16-2024 CPK TOTAL 47 U/L Normal 24-195 [facility] Comment on above: Performed By: #### L 501.3620, L501.9520, L500.4050, L100.0500 #### [facility] [address] [place], [address] Calculated very low density lipoprotein (VLDL) cholesterol measurementOrdered By: Magalys Mcclure on 08-16-2024 Calculated very low density lipoprotein (VLDL) cholesterol measurement 47 mg/dL High 5-40 [facility] VLDL Cholesterol 47 mg/dL High 5-40 [facility] Carbon dioxide, total [Moles /volume] in Central venous bloodOrdered By: Samir Forrest on 08-16-2024 CO2 [Moles/Vol] 25.2 mmol/L 21.0-32.0 [facility] Chloride assayOrdered By: Irving Forrest on 08-16-2024 Chloride [Moles/Vol] 98 mmol/L 98-108 [facility] Comprehensive Metabolic Prof ilon 08-16-2024 Albumin [Mass/Vol] 4.3 g/dL Normal 3.4-4.8 [facility] Comment on above: Performed By: #### L 501.3620, L501.9520, L500.4050, L100.0500 #### [facility] [address] [place], [address] Albumin/Globulin [Mass ratio] 1.6 {ratio} Normal 0.9-2.4 [facility] Comment on above: Performed By: #### L 501.3620, L501.9520, L500.4050, L100.0500 #### [facility] [address] [place], [address] ALK PHOS 104 U/L Normal 35-104 [facility] Comment on above: Performed By: #### L 501.3620, L501.9520, L500.4050, L100.0500 #### [facility] [address] [place], [address] ALT [Catalytic activity/Vol] 14 U/L Normal <=34 [facility] Comment on above: Performed By: #### L 501.3620, L501.9520, L500.4050, L100.0500 #### [facility] [address] [place], [address] AST [Catalytic activity/Vol] 24 U/L Normal <=31 [facility] Comment on above: Performed By: #### L 501.3620, L501.9520, L500.4050, L100.0500 #### [facility] [address] [place], [address] Bilirubin [Mass/Vol] 0.26 mg/dL Normal 0.00-1.30 [facility] Comment on above: Performed By: #### L 501.3620, L501.9520, L500.4050, L100.0500 #### [facility] [address] [place], [address] BUN/CRE 19.6 RATIO Normal 10-20 [facility] Comment on above: Performed By: #### L 501.3620, L501.9520, L500.4050, L100.0500 #### [facility] [address] [place], [address] Calcium [Mass/Vol] 9.9 mg/dL Normal 7.6-11.0 [facility] Comment on above: Performed By: #### L 501.3620, L501.9520, L500.4050, L100.0500 #### [facility] [address] [place], [address] Chloride [Moles/Vol] 98 mmol/L Normal 98-108 [facility] Comment on above: Performed By: #### L 501.3620, L501.9520, L500.4050, L100.0500 #### [facility] [address] [place], [address] CO2 [Moles/Vol] 25.2 mmol/L Normal 21.0-32.0 [facility] Comment on above: Performed By: #### L 501.3620, L501.9520, L500.4050, L100.0500 #### [facility] [address] [place], [address] Creatinine [Mass/Vol] 0.89 mg/dL Normal 0.70-1.20 [facility] Comment on above: Performed By: #### L 501.3620, L501.9520, L500.4050, L100.0500 #### [facility] [address] [place], [address] GAP 13 Normal 5-15 [facility] Comment on above: Performed By: #### L 501.3620, L501.9520, L500.4050, L100.0500 #### [facility] [address] [place], [address] GFR/1.73 sq M.predicted among non-blacks MDRD (S/P/Bld) [Vol rate/Area] 63 mL/min/{1.73_m2} Normal >60 [facility] Comment on above: Result Comment: mL/m in/1.73m2 CKD-EPI Creatinine Equation (2020) Performed By: #### L 501.3620, L501.9520, L500.4050, L100.0500 #### [facility] [address] [place], [address] Globulin (S) [Mass/Vol] 2.7 g/dL Normal 2.2-4.2 [facility] Comment on above: Performed By: #### L 501.3620, L501.9520, L500.4050, L100.0500 #### [facility] [address] [place], [address] Glucose [Mass/Vol] 133 mg/dL High 70-99 [facility] Comment on above: Performed By: #### L 501.3620, L501.9520, L500.4050, L100.0500 #### [facility] [address] [place], [address] Potassium [Moles/Vol] 3.8 mmol/L Normal 3.3-5.1 [facility] Comment on above: Performed By: #### L 501.3620, L501.9520, L500.4050, L100.0500 #### [facility] [address] [place], [address] Sodium [Moles/Vol] 136 mmol/L Normal 133-145 [facility] Comment on above: Performed By: #### L 501.3620, L501.9520, L500.4050, L100.0500 #### [facility] [address] [place], [address] T PROT 7.1 g/dL Normal 5.9-8.4 [facility] Comment on above: Performed By: #### L 501.3620, L501.9520, L500.4050, L100.0500 #### [facility] [address] [place], [address] Urea nitrogen [Mass/Vol] 18 mg/dL Normal 4-19 [facility] Comment on above: Performed By: #### L 501.3620, L501.9520, L500.4050, L100.0500 #### [facility] [address] [place], [address] Erythrocyte distribution wid th ratioOrdered By: Samir Forrest on 08-16-2024 Erythrocyte distribution width (RBC) [Ratio] 11.3 % Low 11.6-14.6 [facility] Erythrocyte distribution wid th standard deviationOrdered By: Samir Forrest on 08-16-2024 Erythrocyte distribution width (RBC) [Entitic vol] 41.0 fL 35.1-43.9 [facility] Erythrocyte distribution width (RBC) [Ratio] 41.0 fl 35.1-43.9 [facility] GFR/1.73 sq M.predicted lb g non-blacks MDRD (S/P/Bld) [Vol rate/Area]Ordered By: Samir Forrest on 08-16-2024 Estimated GFR (MDRD) Non-Af Amer 63 >60 [facility] Comment on above: mL/min/1.73m2 CKD-EP I Creatinine Equation (2020) Glomerular filtration rate ( GFR) estimation/1.73 sq m using serum, plasma, or whole bOrdered By: Samir Forrest on 08-16-2024 GFR/1.73 sq M.predicted among non-blacks MDRD (S/P/Bld) [Vol rate/Area] 63 mL/min/{1.73_m2} >60 [facility] Comment on above: mL/min/1.73m2 CKD-EP I Creatinine Equation (2020) Hematocrit Auto (Bld) [Volum e fraction]Ordered By: Samir Forrest on 08-16-2024 Hematocrit (Bld) [Volume fraction] 39.4 % 37-47 [facility] Hemoglobin measurementOrdere d By: Samir Forrest on 08-16-2024 Hemoglobin (Bld) [Mass/Vol] 13.5 g/dL 12.0-15.0 [facility] L506.1001on 08-16-2024 Vitamin D 25-OH 37.9 ng/mL Normal 30-100 [facility] Comment on above: Order Comment: Order Date: 08/16/24Order Info: [id number] - LIPID Result Comment: Milagros min D Status Deficiency: <20 ng/mL (50nmol/L) Insufficiency: 20-30 ng/mL (50-75 nmol/L) Sufficiency: 30-100 ng/mL (75-250 nmol/L) Toxicity: >100 ng/mL (>250 nmol/L) Performed By: #### L 506.1001 ####[facility] [address] [place], [address] LDL calc ser/plasOrdered By: Magalys Mcclure on 08-16-2024 Cholesterol in LDL [Mass/Vol] 71 mg/dL [facility] Comment on above: Gskjxpcsnv=860-871 m g/dL & Higher Zbmp=519 mg/dL or greater LDL Cholesterol, Calculated 71 mg/dL [facility] Comment on above: Zarcpxhnnc=269-306 m g/dL & Higher Okpt=071 mg/dL or greater Laboratory - Chemistry and C hemistry - challengeOrdered By: Samir Forrest on 08-16-2024 AST [Catalytic activity/Vol] 24 U/L <32 [facility] Lipid Profileon 08-16-2024 CHOL:HDL 3.31 Normal [facility] Comment on above: Order Comment: Order Date: 08/16/24Order Info: [id number] - LIPID Performed By: #### L 500.4100 ####[facility] [address] [place], [address] Cholesterol [Mass/Vol] 169 mg/dL Normal <=200 [facility] Comment on above: Order Comment: Order Date: 08/16/24Order Info: [id number] - LIPID Result Comment: Chol esterol level, Desirable <200 mg/dL Borderline high cholesterol 200-239 mg/dL High cholesterol >=240 mg/dL Recommendations of the NCEP Adult Treatment Panel for the following risk-cutoff thresholds for the [place] population. Performed By: #### L 500.4100 ####[facility] [address] [place], [address] Cholesterol in HDL [Mass/Vol] 51 mg/dL Normal [facility] Comment on above: Order Comment: Order Date: 08/16/24Order Info: [id number] - LIPID Result Comment: Luli onal Cholesterol Education Program (NCEP) guidelines: <40 mg/dL: Low HDL-cholesterol (major risk factor for CHD) >= 60 mg/dL: High HDL-cholesterol (negative risk factor for CHD) HDL-cholesterol is affected by a number of factors, e.g. smoking, exercise, hormones, sex and age. Performed By: #### L 500.4100 ####[facility] [address] [place], [address] Cholesterol in LDL [Mass/Vol] 71 mg/dL Normal [facility] Comment on above: Order Comment: Order Date: 08/16/24Order Info: [id number] - LIPID Result Comment: Bord syqrsx=480-293 mg/dL Higher Dfjq=175 mg/dL or greater Performed By: #### L 500.4100 ####[facility] [address] [place], [address] Cholesterol in VLDL [Mass/Vol] 47 mg/dL High 5-40 [facility] Comment on above: Order Comment: Order Date: 08/16/24Order Info: [id number] - LIPID Performed By: #### L 500.4100 ####[facility] [address] [place], [place], [address] Triglyceride [Mass/Vol] 237 mg/dL High [facility] Comment on above: Order Comment: Order Date: 08/16/24Order Info: [id number] - LIPID Result Comment: The drugs N-Acetylcysteine and Metamizole may falsely depress this assay. Normal range: <150 mg/dL Borderline High: 150-199 mg/dL High: 200-499 mg/dL Very High: >500 mg/dL Performed By: #### L 500.4100 ####[facility] [address] [place], [place], [address] MCV (mean corpuscular volume ) determinationOrdered By: Samir Forrest on 08-16-2024 MCV (RBC) [Entitic vol] 98.0 fL 81-99 [facility] Mean corpuscular hemoglobin (MCH) determinationOrdered By: Samir Forrest on 08-16-2024 MCH (RBC) [Entitic mass] 33.6 pg High 27.0-32.0 [facility] Mean corpuscular hemoglobin concentration (MCHC) determinationOrdered By: Samir Forrest on 08-16-2024 MCHC (RBC) [Mass/Vol] 34.3 g/dL 32-36 [facility] Mean platelet volume determi nationOrdered By: Samir Forrest on 08-16-2024 Platelet mean volume (Bld) [Entitic vol] 8.9 fL 6.2-12.0 [facility] Platelet countOrdered By: Irving Forrest on 08-16-2024 Platelets (Bld) [#/Vol] 299 10*3/uL 150-450 [facility] Potassium (Unsp spec) [Mass/ Vol]Ordered By: Samir Forrest on 08-16-2024 Potassium [Moles/Vol] 3.8 mmol/L 3.3-5.1 [facility] Potassium measurement (mass/ volume)Ordered By: Samir Forrest on 08-16-2024 Potassium (Unsp spec) [Mass/Vol] 3.8 mmol/L 3.3-5.1 [facility] RBC Auto (Bld) [#/Vol]Ordere d By: Samir Forrest on 08-16-2024 RBC (Bld) [#/Vol] 4.02 10*6/uL Low 4.2-5.4 [facility] Screening total cholesterol/ high density lipoprotein (HDL) cholesterol ratioOrdered By: Magalys Mcclure on 08-16-2024 Cholesterol.total/Marcelina sterol in HDL [Mass ratio] 3.31 {ratio} [facility] Serum creatinine measurement (mass/volume)Ordered By: Samir Forrest on 08-16-2024 Creatinine [Mass/Vol] 0.89 mg/dL 0.70-1.20 [facility] Serum globulin measurementOr dered By: Samir Forrest on 08-16-2024 Globulin (S) [Mass/Vol] 2.7 g/dL 2.2-4.2 [facility] Serum glucose measurement (m ass/volume)Ordered By: Samir Forrest on 08-16-2024 Glucose [Mass/Vol] 133 mg/dL High 70-99 [facility] Serum or plasma alanine meraz otransferase (ALT) measurementOrdered By: Samir Forrest on 08-16-2024 ALT [Catalytic activity/Vol] 14 U/L <35 [facility] Serum or plasma albumin julius urement (mass/volume)Ordered By: Samir Forrest on 08-16-2024 Albumin [Mass/Vol] 4.3 g/dL 3.4-4.8 [facility] Serum or plasma albumin/glob ulin mass ratioOrdered By: Samir Forrest on 08-16-2024 Albumin/Globulin [Mass ratio] 1.6 {ratio} 0.9-2.4 [facility] Serum or plasma alkaline vandana sphatase measurementOrdered By: Samir Forrest on 08-16-2024 ALP [Catalytic activity/Vol] 104 U/L 35-104 [facility] Serum or plasma calcium julius urement (mass/volume)Ordered By: Samir Forrest on 08-16-2024 Calcium [Mass/Vol] 9.9 mg/dL 7.6-11.0 [facility] Serum or plasma cholesterol in HDL measurement (mass/volume)Ordered By: Magalys Mcclure on 08-16-2024 Cholesterol in HDL [Mass/Vol] 51 mg/dL >40 [facility] Comment on above: National Cholesterol Education Program (NCEP) guidelines:<40 mg/dL: Low HDL-cholesterol (major risk factor for CHD)>= 60 mg/dL: High HDL-cholesterol (negative risk factor for CHD)HDL-cholesterol is affected by a number of factors, e.g. smoking, exercise, hormones, sex and age. Serum or plasma cholesterol measurement (mass/volume)Ordered By: Magalys Mcclure on 08-16-2024 Cholesterol [Mass/Vol] 169 mg/dL <201 [facility] Comment on above: Cholesterol level, D esirable <200 mg/dLBorderline high cholesterol 200-239 mg/dLHigh cholesterol >=240 mg/dLRecommendations of the NCEP Adult Treatment Panel for the following risk-cutoff thresholds for the [place] population. Serum or plasma creatine kin ase activityOrdered By: Samir Forrest on 08-16-2024 CK [Catalytic activity/Vol] 47 U/L 24-195 [facility] Serum or plasma urea nitroge n measurement (mass/volume)Ordered By: Samir Forrest on 08-16-2024 Urea nitrogen [Mass/Vol] 18 mg/dL 4-19 [facility] Sodium levelOrdered By: Shlomo Forrest on 08-16-2024 Sodium [Moles/Vol] 136 mmol/L 133-145 [facility] TSH DL <= 0.005 mIU/L QnOrde red By: Samir Forrest on 08-16-2024 Thyroid Stimulating Hormone (TSH) 1.950 uIU/mL 0.300-4.200 [facility] TSH Qn 1.950 uIU/mL 0.300-4.200 [facility] Thyroid Stim Hormone (TSH)on 08-16-2024 TSH 1.950 uIU/mL Normal 0.300-4.200 [facility] Comment on above: Performed By: #### L 501.3620, L501.9520, L500.4050, L100.0500 #### [facility] [address] [place], [address] Total proteinOrdered By: Alexandra Forrest on 08-16-2024 Protein [Mass/Vol] 7.1 g/dL 5.9-8.4 [facility] Triglycerides measurementOrd ered By: Magalys Mcclure on 08-16-2024 Triglyceride [Mass/Vol] 237 mg/dL High <199 [facility] Comment on above: The drugs N-Acetylcy steine and Metamizole may falsely depress this assay. Normal range: <150 mg/dLBorderline High: 150-199 mg/dLHigh: 200-499 mg/dLVery High: >500 mg/dL Vitamin D, 25-hydroxyOrdered By: Magalys Mcclure on 08-16-2024 Vitamin D 25-Hydroxy 37.9 ng/mL 30-100 [facility] Comment on above: Vitamin D StatusDefi ciency: <20 ng/mL (50nmol/L)Insufficiency: 20-30 ng/mL (50-75 nmol/L)Sufficiency: 30-100 ng/mL (75-250 nmol/L)Toxicity: >100 ng/mL (>250 nmol/L) White blood cell (WBC) count Ordered By: Samir Forrest on 08-16-2024 WBC (Bld) [#/Vol] 4.1 10*3/uL Low 4.4-11.0 [facility] Cardiology Visit Reporton Cardiology Visit Report [facility] [address] [place] [address] OFFICE VISIT Date of Service: 07/10/24 MR#: [id number] Acct: [id number] Name: KATRINA MANCINI Rep #: [id number] : 1940 Provider: Dr. Samir Forrest MD Age/Sex: 84/F Location: [facility] [facility] Status: Signed HPI HPI History of Present [...] Source NIBP Intake Visit Reasons: 7 M Editing Intern Required: No Accompanied by: Self Is patient [...] PO QHS 01/15/22 05/31/24 History capsule,extended release [id number] acetaminophen 325 mg tablet 650 mg PO [...] (no major injury; right sided residual discomfort) PFSH Medical History Arthritis Back pain BPPV (benign [...] No Edema: (more content not included)... Normal [facility] HIP, UNI W/ Pelvis 2-3 Views on 05-31-2024 HIP, UNI W/ Pelvis 2-3 Views [facility] [address] [place] [address] HIP, UNI W/ Pelvis 2-3 Views MR#: [id number] Acct: [id number] Name: KATRINA MANCINI Rep #: [id number] : 1940 F 83 From: London Patterson DO PCP: Dr. Magalys Mcclure MD Status: DEP AMB Study: HIP, UNI W/ Pelvis 2-3 Views Date of Exam: Exam# [id number] Ordering Dr: Ned Chiu [place] [id number] INDICATION: pain EXAMINATION/TECHNIQUE: X-RAY - XR Hip [...] 21:01 EST Reading Location ID and State: [facility] / [place] Tel [phone], Service support , CC: Dr. Ned Chiu MD; Dr. Magalys Mcclure MD Dolly Operator: Signed Normal [facility] L/S Spine Min 4 Viewson 05-13 L/S Spine Min 4 Views [facility] [address] [place] [address] L/S Spine Min 4 Views MR#: [id number] Acct: [id number] Name: KATRINA MANCINI Rep #: [id number] : 1940 F 83 From: London Patterson DO PCP: Dr. Magalys Mcclure MD Status: DEP AMB Study: L/S Spine Min 4 Views Date of Exam: 05/31/24 Exam# [id number] Ordering Dr: Nicolette Mcmillan [id number] STUDY: X-RAY - LUMBAR SPINE REASON FOR [...] 21:08 EST Reading Location ID and State: [facility] / [place] Tel [phone], Service support , CC: MONA Rosas; Dr. Magalys Mcclure MD Dolly Operator: Signed Normal [facility] Orthopedic Visit Reporton Orthopedic Visit Report [facility] [address] [place] [address] OFFICE VISIT Date of Service: 05/31/24 MR#: [id number] Acct: [id number] Name: KATRINA MANCINI Rep #: [id number] : 1940 Provider: Dr. Ned Chiu MD Age/Sex: 83/F Location: [facility] [facility] Status: Signed Intake Vital Signs 04/03/24 15:06 [...] PO QHS 01/15/22 05/31/24 History capsule,extended release [id number] acetaminophen 325 mg tablet 650 mg PO [...] you fallen in the past year?: Yes [facility] Medical History (Updated 06/01/24 @ 08:14 by [...] by me, Dr. Ned Chiu MD 05/31/24 0386. Part of today???s visit was documented by [ ], acting as scribe. KATRINA MANCINI is a 83 year old F here today for low back pain. She notes that she has had pain about a year and a half. She denies any injury. Patient had lumbar spine surgery for a laminectomy in 1991 in [place]. She complains of pain from her lumbar spine into her left leg, stopping at her knee. She notes that right now most of her pain it in her right buttock from a recent fall, 2 days ago, falling into a sandstone block. She also has had bilateral total hip, and revision of total hip. She denies any n (more content not included)... Normal [facility] Manager Office Visit Reporton 05-24-2024 [facility] Manager Office Visit Report [facility] [address], [address] [place] [address] OFFICE VISIT Date of Service: 05/24/24 MR#: [id number] Acct: [id number] Name: KATRINA MANCINI Rep #: [id number] : 1940 Provider: Dr. 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 still having hot flashes discussed relizen samples given Last PAP: (more content not included)... Normal [facility] Hips B/L min 2 views w/ Pelv edilson 05-15-2024 Hips B/L min 2 views w/ Pelvis [facility] Imaging Services [address] [place], [place] [id number] Hips B/L min 2 views w/ Pelvis MR#: [id number] Acct: [id number] Name: KATRINA MANCINI Rep #: [id number] : 1940 F 83 From: Bharat Greene MD PCP: Dr. Magalys Mcclure MD Status: REG CLI Study: Hips B/L min 2 views w/ Pelvis Date of Exam: 07/16/23 Exam# [id number] Ordering Dr: Magalys Mcclure MD [id number] INDICATION: pain EXAMINATION/TECHNIQUE: X-RAY - XR Hips [...] 18:40 EST Reading Location ID and State: [address] [place] [address] , Service support , CC: Dr. Magalys Mcclure MD Dolly Operator: Signed Normal [facility] Knee 3 Viewson 05-15-2024 Knee 3 Views [facility] Imaging Services [address] [place] [id number] Knee 3 Views MR#: [id number] Acct: [id number] Name: KATRINA MANCINI Rep #: [id number] : 1940 F 83 From: Farhad Hooker MD PCP: Dr. Magalys Mcclure MD Status: REG CLI Study: Knee 3 Views Date of Exam: 05/15/24 Exam# [id number] Ordering Dr: Magalys Mcclure MD [id number] EXAM: XR Knee 3 Views INDICATION: Female, [...] EST , CC: Dr. Magalys Mcclure MD Dolly Operator: Signed Normal [facility] Knee 3 Views [facility] Imaging Services [address] [place], [place] [id number] Knee 3 Views MR#: [id number] Acct: [id number] Name: KATRINA MANCINI Rep #: [id number] : 1940 F 83 From: Farhad Hooker MD PCP: Dr. Magalsy Mcclure MD Status: REG CLI Study: Knee 3 Views Date of Exam: 05/15/24 Exam# [id number] Ordering Dr: Magalys Mcclure MD [id number] EXAM: XR Knee 3 Views INDICATION: Female, [...] EST , CC: Dr. Magalys Mcclure MD Dolly Operator: Signed Normal [facility] Basic Metabolic Profile (BMP )on 04-27-2024 BUN/CRE 20.4 RATIO High 10-20 [facility] Comment on above: Order Comment: Order Date: 04/27/24Order Info: 0667-1 - BMP Performed By: #### L 500.2500 ####[facility] [address] [place], [address] CA,Total 9.3 mg/dL Normal 8.5-10.1 [facility] Comment on above: Order Comment: Order Date: 04/27/24Order Info: 0667-1 - BMP Performed By: #### L 500.2500 ####[facility] [address] [place], [address] Chloride [Moles/Vol] 99 mmol/L Normal 98-107 [facility] Comment on above: Order Comment: Order Date: 04/27/24Order Info: 0667-1 - BMP Performed By: #### L 500.2500 ####[facility] [address] [place], [address] CO2 [Moles/Vol] 30.0 mmol/L Normal 21.0-32.0 [facility] Comment on above: Order Comment: Order Date: 04/27/24Order Info: 666-06 - BMP Performed By: #### L 500.2500 ####[facility] [address] [place], [address] Creatinine [Mass/Vol] 0.88 mg/dL Normal 0.55-1.02 [facility] Comment on above: Order Comment: Order Date: 04/27/24Order Info: 666-06 - BMP Result Comment: The validity of the calculated GFR GFRAA in patients over 70 years has not been determined. Clinical correlation is essential. Performed By: #### L 500.2500 ####[facility] [address] [place], [address] EST GFR - AA 78 mL/min Normal >60 [facility] Comment on above: Order Comment: Order Date: 04/27/24Order Info: 666-06 - [facility] Result Comment: Afri can Malaysian GFR Calc Performed By: #### L 500.2500 ####[facility] [address] [place], [address] GAP 5 Normal 5-15 [facility] Comment on above: Order Comment: Order Date: 04/27/24Order Info: 666-06 - BMP Performed By: #### L 500.2500 ####[facility] [address] [place], [address] GFR/1.73 sq M.predicted among non-blacks MDRD (S/P/Bld) [Vol rate/Area] 65 mL/min/{1.73_m2} Normal >60 [facility] Comment on above: Order Comment: Order Date: 04/27/24Order Info: 666-06 - BMP Result Comment: Non- GFR Calc Performed By: #### L 500.2500 ####[facility] [address] [place], [address] Glucose [Mass/Vol] 114 mg/dL High 74-106 [facility] Comment on above: Order Comment: Order Date: 04/27/24Order Info: 666-06 - BMP Result Comment: Fast ing Glucose result from 100 to 125 mg/dL suggests IMPAIRED HOMEOSTASIS per A.D.A. criteria. Performed By: #### L 500.2500 ####[facility] [address] [place], [address] Potassium [Moles/Vol] 4.2 mmol/L Normal 3.5-5.1 [facility] Comment on above: Order Comment: Order Date: 04/27/24Order Info: 06 - BMP Performed By: #### L 500.2500 ####[facility] [address] [place], [address] Sodium [Moles/Vol] 134 mmol/L Low 136-145 [facility] Comment on above: Order Comment: Order Date: 04/27/24Order Info: 666-06 - BMP Performed By: #### L 500.2500 ####[facility] [address] [place], [address] Urea nitrogen [Mass/Vol] 18 mg/dL Normal 7-18 [facility] Comment on above: Order Comment: Order Date: 04/27/24Order Info: 666-06 - BMP Performed By: #### L 500.2500 ####[facility] [address] [place], [address] Absolute lymphocyte countOrd ered By: Magalys Mcclure on 07-22-2023 Lymphocytes Auto (Unsp spec) [#/Vol] 1.31 10*3/uL 0.83-4.51 [facility] Automated lymphocyte count a s percentage of total leukocytesOrdered By: Magalys Mcclure on 07-22-2023 Lymphocytes/100 WBC Auto (Unsp spec) 17.9 % 19-41 [facility] Basophil percentageOrdered B y: Magalys Mcclure on 07-22-2023 Basophils/100 WBC (Bld) 0.7 % 0-1 [facility] Bilirubin [Mass/Vol] 0.30 mg/dL 0.20-1.00 [facility] Comment on above: For patients on eltr ombopag therapy, use of Dimension Vass TBIL is not recommended. Chloride [Moles/Vol] 103 mmol/L 98-107 [facility] Cholesterol [Mass/Vol] 190 mg/dL <200 [facility] Comment on above: <200 mg/dL Desirable 200-240 mg/dL Borderline >240 mg/dL High Risk Eosinophils/100 WBC (Bld) 1.5 % 0-5 [facility] Glucose [Mass/Vol] 92 mg/dL 74-106 [facility] Hemoglobin (Bld) [Mass/Vol] 13.9 g/dL 12.0-15.0 [facility] Monocytes/100 WBC (Bld) 9.4 % 0-10 [facility] Neutrophils (Bld) [#/Vol] 5.1 10*3/uL 2.0-7.7 [facility] Neutrophils/100 WBC (Bld) 69.7 % 47-70 [facility] Potassium [Moles/Vol] 4.2 mmol/L 3.5-5.1 [facility] Protein [Mass/Vol] 7.6 g/dL 6.4-8.2 [facility] Sodium [Moles/Vol] 138 mmol/L 136-145 [facility] Triglyceride [Mass/Vol] 232 mg/dL <199 [facility] Comment on above: The drugs N-Acetylcy steine and Metamizole may falsely depress this assay.Serum Triglycerides Reference Interval Normal <150 mg/dL Borderline high 150 - 199 mg/dL High 200 - 499 mg/dL Very High > or = 500 mg/dL WBC (Bld) [#/Vol] 7.3 10*3/uL 4.4-11.0 [facility] Determination of erythrocyte mean corpuscular volume (MCV)Ordered By: Magalys Mcclure on 07-22-2023 MCV (RBC) [Entitic vol] 102.5 fL 81-99 [facility] Erythrocyte distribution wid th ratioOrdered By: Magalys Mcclure on 07-22-2023 Erythrocyte distribution width (RBC) [Ratio] 11.4 % 11.6-14.6 [facility] Erythrocyte distribution wid th standard deviationOrdered By: Magalys Mcclure on 07-22-2023 Erythrocyte distribution width (RBC) [Entitic vol] 43.4 fL 35.1-43.9 [facility] Hematocrit Auto (Bld) [Volum e fraction]Ordered By: Magalys Mcclure on 07-22-2023 Hematocrit (Bld) [Volume fraction] 41.3 % 37-47 [facility] Immature granulocytes/100 WB C Auto (Bld)Ordered By: Magalys Mcclure on 07-22-2023 Immature granulocytes/100 WBC (Bld) 0.800 % 0.0-0.9 [facility] Comment on above: IG% - Immature Granu locytes (promyelocytes, myelocytes and metamyelocytes) > 1% indicates that a LEFT SHIFT is Present. Laboratory - Chemistry and C hemistry - challengeOrdered By: Magalys Mcclure on 07-22-2023 Albumin/Globulin [Mass ratio] 1.2 {ratio} 0.9-2.4 [facility] ALP [Catalytic activity/Vol] 88 U/L 45-117 [facility] ALT [Catalytic activity/Vol] 40 U/L 13-56 [facility] Cholesterol in HDL [Mass/Vol] 58 mg/dL >40 [facility] Comment on above: The drugs N-Acetylcy steine and Metamizole may falsely depress this assay. Reference Range HDL <40 mg/dL Low HDL Cholesterol HDL >or= 60 mg/dL High HDL Cholesterol Cholesterol in LDL [Mass/Vol] 86 mg/dL 0-130 [facility] CO2 [Moles/Vol] 31.0 mmol/L 21.0-32.0 [facility] Globulin (S) [Mass/Vol] 3.5 g/dL 2.2-4.2 [facility] Urea nitrogen/Creatinine [Mass ratio] 32.1 mg/mg 10-20 [facility] Laboratory - Hematology and Cell countsOrdered By: Magalys Mcclure on 07-22-2023 MCH (RBC) [Entitic mass] 34.5 pg 27.0-32.0 [facility] MCHC (RBC) [Mass/Vol] 33.7 g/dL 32-36 [facility] Nucleated RBC/100 WBC (Bld) [Ratio] 0 % 0-5 [facility] Platelet mean volume (Bld) [Entitic vol] 9.1 fL 6.2-12.0 [facility] Platelets (Bld) [#/Vol] 335 10*3/uL 150-450 [facility] No Panel InformationOrdered By: Magalys Mcclure on 07-22-2023 Estimated GFR (MDRD) Amer 83 mL/min >60 [facility] Comment on above: GFR Calc Estimated GFR (MDRD) Non-Af Amer 68 mL/min >60 [facility] Comment on above: Non- GFR Calc Vitamin D 25-Hydroxy 32.4 ng/mL [facility] Comment on above: Vitamin D 25(OH) Sta tus Range Deficiency <20 ng/mL (50nmol/L) Insufficiency 20 - 30 ng/mL (50 - 75 nmol/L) Sufficiency 30 - 100 ng/mL (75 - 250 nmol/L) Toxicity >100 ng/mL (>250 nmol/L) VLDL Cholesterol 46 mg/dL 5-40 [facility] RBC Auto (Bld) [#/Vol]Ordere d By: Magalys Mcclure on 07-22-2023 RBC (Bld) [#/Vol] 4.03 10*6/uL 4.2-5.4 [facility] Serum or plasma calcium julius urement (mass/volume)Ordered By: Magalys Mcclure on 07-22-2023 Calcium [Mass/Vol] 9.6 mg/dL 8.5-10.1 [facility] Serum or plasma creatinine m easurement (mass/volume)Ordered By: Magalys Mcclure on 07-22-2023 Creatinine [Mass/Vol] 0.84 mg/dL 0.55-1.02 [facility] Comment on above: The validity of the calculated GFR & GFRAA in patients over 70 years has not been determined. Clinical correlation is essential. Serum or plasma urea nitroge n measurement (mass/volume)Ordered By: Magalys Mcclure on 07-22-2023 Urea nitrogen [Mass/Vol] 27 mg/dL 7-18 [facility] Thin prep Papanicolaou smear with manual screeningOrdered By: Magalys Mcclure on 07-22-2023 Thin prep Papanicolaou smear with manual screening 4.1 g/dL 3.2-5.0 [facility] Thin prep Papanicolaou smear with manual screening 19 U/L 15-37 [facility] Thin prep Papanicolaou smear with manual screening 4 5-15 [facility] Basophil percentageOrdered B y: Brittany Rogers on 06-23-2023 Basophil percentage 3.8 mg/dL 2.5-4.9 [facility] Chloride [Moles/Vol] 100 mmol/L 98-107 [facility] Glucose [Mass/Vol] 102 mg/dL 74-106 [facility] Comment on above: Fasting Glucose resu lt from 100 to 125 mg/dL suggests IMPAIRED HOMEOSTASIS per A.D.A. criteria. Potassium [Moles/Vol] 4.2 mmol/L 3.5-5.1 [facility] Sodium [Moles/Vol] 134 mmol/L 136-145 [facility] Laboratory - Chemistry and C hemistry - challengeOrdered By: Brittany Rogers on 06-23-2023 CO2 [Moles/Vol] 29.0 mmol/L 21.0-32.0 [facility] Urea nitrogen/Creatinine [Mass ratio] 22.4 mg/mg 10-20 [facility] No Panel InformationOrdered By: Brittany Rogers on 06-23-2023 Estimated GFR (MDRD) Amer 87 mL/min >60 [facility] Comment on above: GFR Calc Estimated GFR (MDRD) Non-Af Amer 72 mL/min >60 [facility] Comment on above: Non- GFR Calc Serum or plasma albumin julius urement (mass/volume)Ordered By: Brittany Rogers on 06-23-2023 Albumin [Mass/Vol] 4.0 g/dL 3.2-5.0 [facility] Serum or plasma calcium julius urement (mass/volume)Ordered By: Brittany Rogers on 06-23-2023 Calcium [Mass/Vol] 9.1 mg/dL 8.5-10.1 [facility] Serum or plasma creatinine m easurement (mass/volume)Ordered By: Brittany Rogers on 06-23-2023 Creatinine [Mass/Vol] 0.80 mg/dL 0.55-1.02 [facility] Comment on above: The validity of the calculated GFR & GFRAA in patients over 70 years has not been determined. Clinical correlation is essential. Serum or plasma urea nitroge n measurement (mass/volume)Ordered By: Brittany Rogers on 06-23-2023 Urea nitrogen [Mass/Vol] 18 mg/dL 7-18 [facility] Laboratory - Chemistry and C hemistry - challengeOrdered By: Brittany Rogers on 04-21-2023 Sodium (U) [Moles/Vol] 103 mmol/L Not Establ. [facility] Urine osmolality measurement Ordered By: Brittany Rogers on 04-21-2023 Osmolality (U) [Osmolality] 625 mOsm/KG >50 [facility] Comment on above: Normal Urine Referen ce Ranges Random: 50 - 1200 mOsm/kg H20 depending on fluid intake Random: >850 mOsm/kg after 12 hour fluid restriction 24 hour: ~300 - 900 mOsm/kg H2O Basophil percentageOrdered B y: Magalys Mcclure on 04-14-2023 Chloride [Moles/Vol] 95 mmol/L 98-107 [facility] Glucose [Mass/Vol] 98 mg/dL 74-106 [facility] Potassium [Moles/Vol] 4.0 mmol/L 3.5-5.1 [facility] Sodium [Moles/Vol] 131 mmol/L 136-145 [facility] Laboratory - Chemistry and C hemistry - challengeOrdered By: Magalys Mcclure on 04-14-2023 CO2 [Moles/Vol] 29.0 mmol/L 21.0-32.0 [facility] Urea nitrogen/Creatinine [Mass ratio] 20.9 mg/mg 10-20 [facility] No Panel InformationOrdered By: Magalys Mcclure on 04-14-2023 Estimated GFR (MDRD) Amer 92 mL/min >60 [facility] Comment on above: GFR Calc Estimated GFR (MDRD) Non-Af Amer 76 mL/min >60 [facility] Comment on above: Non- GFR Calc No Panel InformationOrdered By: Samir Forrest on 04-14-2023 Thyroid Stimulating Hormone (TSH) 2.23 uIU/mL 0.358-3.74 [facility] Serum or plasma calcium julius urement (mass/volume)Ordered By: Magalys Mcclure on 04-14-2023 Calcium [Mass/Vol] 9.3 mg/dL 8.5-10.1 [facility] Serum or plasma creatinine m easurement (mass/volume)Ordered By: Magalys Mcclure on 04-14-2023 Creatinine [Mass/Vol] 0.77 mg/dL 0.55-1.02 [facility] Comment on above: The validity of the calculated GFR & GFRAA in patients over 70 years has not been determined. Clinical correlation is essential. Serum or plasma urea nitroge n measurement (mass/volume)Ordered By: Magalys Mcclure on 04-14-2023 Urea nitrogen [Mass/Vol] 16 mg/dL 7-18 [facility] Thin prep Papanicolaou smear with manual screeningOrdered By: Magalys Mcclure on 04-14-2023 Thin prep Papanicolaou smear with manual screening 7 5-15 [facility] Basophil percentageOrdered B y: Magalys Mcclure on 04-01-2023 Chloride [Moles/Vol] 100 mmol/L 98-107 [facility] Glucose [Mass/Vol] 97 mg/dL 74-106 [facility] Potassium [Moles/Vol] 4.1 mmol/L 3.5-5.1 [facility] Sodium [Moles/Vol] 134 mmol/L 136-145 [facility] Laboratory - Chemistry and C hemistry - challengeOrdered By: Magalys Mcclure on 04-01-2023 CO2 [Moles/Vol] 30.0 mmol/L 21.0-32.0 [facility] Urea nitrogen/Creatinine [Mass ratio] 22.3 mg/mg 04-01 [facility] No Panel InformationOrdered By: Magalys Mcclure on 04-01-2023 Estimated GFR (MDRD) Amer 100 mL/min >60 [facility] Comment on above: GFR Calc Estimated GFR (MDRD) Non-Af Amer 82 mL/min >60 [facility] Comment on above: Non- GFR Calc Serum or plasma calcium julius urement (mass/volume)Ordered By: Magalys Mcclure on 04-01-2023 Calcium [Mass/Vol] 9.1 mg/dL 8.5-10.1 [facility] Serum or plasma creatinine m easurement (mass/volume)Ordered By: Magalys Mcclure on 04-01-2023 Creatinine [Mass/Vol] 0.72 mg/dL 0.55-1.02 [facility] Comment on above: The validity of the calculated GFR & GFRAA in patients over 70 years has not been determined. Clinical correlation is essential. Serum or plasma urea nitroge n measurement (mass/volume)Ordered By: Magalys Mcclure on 04-01-2023 Urea nitrogen [Mass/Vol] 16 mg/dL 7-18 [facility] Thin prep Papanicolaou smear with manual screeningOrdered By: Magalys Mcclure on 04-01-2023 Thin prep Papanicolaou smear with manual screening 4 5-15 [facility] Basophil percentageOrdered B y: Magalys Mcclure on 03-03-2023 Chloride [Moles/Vol] 97 mmol/L 98-107 [facility] Glucose [Mass/Vol] 83 mg/dL 74-106 [facility] Potassium [Moles/Vol] 3.7 mmol/L 3.5-5.1 [facility] Sodium [Moles/Vol] 130 mmol/L 136-145 [facility] Laboratory - Chemistry and C hemistry - challengeOrdered By: Magalys Mcclure on 03-03-2023 CO2 [Moles/Vol] 27.0 mmol/L 21.0-32.0 [facility] Urea nitrogen/Creatinine [Mass ratio] 12.8 mg/mg 04-01 [facility] No Panel InformationOrdered By: Magalys Mcclure on 03-03-2023 Estimated GFR (MDRD) Amer 117 mL/min >60 [facility] Comment on above: GFR Calc Estimated GFR (MDRD) Non-Af Amer 96 mL/min >60 [facility] Comment on above: Non- GFR Calc No Panel Informationon 03-03 [facility] Serum or plasma calcium julius urement (mass/volume)Ordered By: Magalys Mcclure on 03-03-2023 Calcium [Mass/Vol] 8.8 mg/dL 8.5-10.1 [facility] Serum or plasma creatinine m easurement (mass/volume)Ordered By: Magalys Mcclure on 03-03-2023 Creatinine [Mass/Vol] 0.62 mg/dL 0.55-1.02 [facility] Comment on above: The validity of the calculated GFR & GFRAA in patients over 70 years has not been determined. Clinical correlation is essential. Serum or plasma urea nitroge n measurement (mass/volume)Ordered By: Magalys Mcclure on 03-03-2023 Urea nitrogen [Mass/Vol] 8 mg/dL 7-18 [facility] Thin prep Papanicolaou smear with manual screeningOrdered By: Magalys Mcclure on 03-03-2023 Thin prep Papanicolaou smear with manual screening 6 5-15 [facility] CARBAM/TEGRETOL Riana 02-22-20 23 carBAMazepine free [Mass/Vol] 2.4 ug/mL 0.8 - 2.4 ug/mL [facility] Absolute lymphocyte countOrd ered By: Magalys Mcclure on 02-18-2023 Lymphocytes Auto (Unsp spec) [#/Vol] 1.05 10*3/uL 0.83-4.51 [facility] Basophil percentageOrdered B y: Magalys Mcclure on 02-18-2023 Basophils/100 WBC (Bld) 0.6 % 0-1 [facility] Bilirubin [Mass/Vol] 0.30 mg/dL 0.20-1.00 [facility] Comment on above: For patients on eltr ombopag therapy, use of Dimension Vass TBIL is not recommended. Chloride [Moles/Vol] 96 mmol/L 98-107 [facility] Cholesterol [Mass/Vol] 175 mg/dL <200 [facility] Comment on above: <200 mg/dL Desirable 200-240 mg/dL Borderline >240 mg/dL High Risk Eosinophils/100 WBC (Bld) 1.7 % 0-5 [facility] Glucose [Mass/Vol] 112 mg/dL 74-106 [facility] Comment on above: Fasting Glucose resu lt from 100 to 125 mg/dL suggests IMPAIRED HOMEOSTASIS per A.D.A. criteria. Neutrophils (Bld) [#/Vol] 4.5 10*3/uL 2.0-7.7 [facility] Neutrophils/100 WBC (Bld) 70.1 % 47-70 [facility] Potassium [Moles/Vol] 4.1 mmol/L 3.5-5.1 [facility] Protein [Mass/Vol] 7.3 g/dL 6.4-8.2 [facility] Sodium [Moles/Vol] 129 mmol/L 136-145 [facility] Triglyceride [Mass/Vol] 146 mg/dL <199 [facility] Comment on above: The drugs N-Acetylcy steine and Metamizole may falsely depress this assay.Serum Triglycerides Reference Interval Normal <150 mg/dL Borderline high 150 - 199 mg/dL High 200 - 499 mg/dL Very High > or = 500 mg/dL WBC (Bld) [#/Vol] 6.4 10*3/uL 4.4-11.0 [facility] Blood erythrocytes count (nu mber/volume)Ordered By: Magalys Mcclure on 02-18-2023 RBC (Bld) [#/Vol] 4.11 10*6/uL 4.2-5.4 [facility] Blood hemoglobin measurement (mass/volume)Ordered By: Magalys Mcclure on 02-18-2023 Hemoglobin (Bld) [Mass/Vol] 13.9 g/dL 12.0-15.0 [facility] Blood lymphocytes/100 leukoc ytesOrdered By: Magalys Mcclure on 02-18-2023 Lymphocytes/100 WBC (Bld) 16.4 % 19-41 [facility] Blood monocytes/100 leukocyt esOrdered By: Magalys Mcclure on 02-18-2023 Monocytes/100 WBC (Bld) 10.6 % 0-10 [facility] Blood platelet mean volumeOr dered By: Magalys Mcclure on 02-18-2023 Platelet mean volume (Bld) [Entitic vol] 8.3 fL 6.2-12.0 [facility] Determination of erythrocyte mean corpuscular volume (MCV)Ordered By: Magalys Mcclure on 02-18-2023 MCV (RBC) [Entitic vol] 98.8 fL 81-99 [facility] Hematocrit Auto (Bld) [Volum e fraction]Ordered By: Magalys Mcclure on 02-18-2023 Hematocrit (Bld) [Volume fraction] 40.6 % 37-47 [facility] Laboratory - Chemistry and C hemistry - challengeOrdered By: Magalys Mcclure on 02-18-2023 ALP [Catalytic activity/Vol] 62 U/L 45-117 [facility] ALT [Catalytic activity/Vol] 25 U/L 13-56 [facility] CO2 [Moles/Vol] 28.0 mmol/L 21.0-32.0 [facility] Globulin (S) [Mass/Vol] 3.5 g/dL 2.2-4.2 [facility] Urea nitrogen/Creatinine [Mass ratio] 17.3 mg/mg 10-20 [facility] Laboratory - Hematology and Cell countsOrdered By: Magalys Mcclure on 02-18-2023 Erythrocyte distribution width (RBC) [Entitic vol] 42.5 fL 35.1-43.9 [facility] Erythrocyte distribution width (RBC) [Ratio] 11.7 % 11.6-14.6 [facility] Immature granulocytes/100 WBC (Bld) 0.600 % 0.0-0.9 [facility] Comment on above: IG% - Immature Granu locytes (promyelocytes, myelocytes and metamyelocytes) > 1% indicates that a LEFT SHIFT is Present. MCH (RBC) [Entitic mass] 33.8 pg 27.0-32.0 [facility] Nucleated RBC/100 WBC (Bld) [Ratio] 0 % 0-5 [facility] MCHC Auto (RBC) [Mass/Vol]Or dered By: Magalys Mcclure on 02-18-2023 MCHC (RBC) [Mass/Vol] 34.2 g/dL 32-36 [facility] No Panel InformationOrdered By: Magalys Mcclure on 02-18-2023 Estimated GFR (MDRD) Amer 94 mL/min >60 [facility] Comment on above: GFR Calc Estimated GFR (MDRD) Non-Af Amer 78 mL/min >60 [facility] Comment on above: Non- GFR Calc Vitamin D 25-Hydroxy 43.7 ng/mL [facility] Comment on above: Vitamin D 25(OH) Sta tus Range Deficiency <20 ng/mL (50nmol/L) Insufficiency 20 - 30 ng/mL (50 - 75 nmol/L) Sufficiency 30 - 100 ng/mL (75 - 250 nmol/L) Toxicity >100 ng/mL (>250 nmol/L) Platelets bldOrdered By: Kojo Mcclure on 02-18-2023 Platelets (Bld) [#/Vol] 308 10*3/uL 150-450 [facility] Serum or plasma albumin julius urement (mass/volume)Ordered By: Magalys Mcclure on 02-18-2023 Albumin [Mass/Vol] 3.8 g/dL 3.2-5.0 [facility] Serum or plasma albumin/glob ulin mass ratioOrdered By: Magalys Mcclure on 02-18-2023 Albumin/Globulin [Mass ratio] 1.1 {ratio} 0.9-2.4 [facility] Serum or plasma calcium julius urement (mass/volume)Ordered By: Magalys Mcclure on 02-18-2023 Calcium [Mass/Vol] 9.1 mg/dL 8.5-10.1 [facility] Serum or plasma cholesterol in HDL measurement (mass/volume)Ordered By: Magalys Mcclure on 02-18-2023 Cholesterol in HDL [Mass/Vol] 76 mg/dL >40 [facility] Comment on above: The drugs N-Acetylcy steine and Metamizole may falsely depress this assay. Reference Range HDL <40 mg/dL Low HDL Cholesterol HDL >or= 60 mg/dL High HDL Cholesterol Serum or plasma cholesterol in VLDL measurement (mass/volume)Ordered By: Magalys Mcclure on 02-18-2023 Cholesterol in VLDL [Mass/Vol] 29 mg/dL 5-40 [facility] Serum or plasma creatinine m easurement (mass/volume)Ordered By: Mgaalys Mcclure on 02-18-2023 Creatinine [Mass/Vol] 0.75 mg/dL 0.55-1.02 [facility] Comment on above: The validity of the calculated GFR & GFRAA in patients over 70 years has not been determined. Clinical correlation is essential. Serum or plasma low density lipoprotein (LDL) cholesterol measurement (mass/volume)Ordered By: Magalys Mcclure on 02-18-2023 Cholesterol in LDL [Mass/Vol] 70 mg/dL 0-130 [facility] Serum or plasma urea nitroge n measurement (mass/volume)Ordered By: Magalys Mcclure on 02-18-2023 Urea nitrogen [Mass/Vol] 13 mg/dL 7-18 [facility] Thin prep Papanicolaou smear with manual screeningOrdered By: Magalys Mcclure on 02-18-2023 Thin prep Papanicolaou smear with manual screening 20 U/L 15-37 [facility] Thin prep Papanicolaou smear with manual screening 5 5-15 [facility] No Panel Informationon 11-29 [facility] Absolute lymphocyte countOrd ered By: Dr. Mcclure on 06-29-2022 Lymphocytes Auto (Unsp spec) [#/Vol] 1.13 10*3/uL 0.83-4.51 [facility] Basophil percentageOrdered B y: Dr. Mcclure on 06-29-2022 Basophils/100 WBC (Bld) 0.7 % 0-1 [facility] Bilirubin [Mass/Vol] 0.30 mg/dL 0.20-1.00 [facility] Comment on above: For patients on eltr ombopag therapy, use of Dimension Vass TBIL is not recommended. Chloride [Moles/Vol] 100 mmol/L 98-107 [facility] Cholesterol [Mass/Vol] 185 mg/dL <200 [facility] Comment on above: <200 mg/dL Desirable 200-240 mg/dL Borderline >240 mg/dL High Risk Eosinophils/100 WBC (Bld) 2.7 % 0-5 [facility] Glucose [Mass/Vol] 87 mg/dL 74-106 [facility] Neutrophils (Bld) [#/Vol] 2.7 10*3/uL 2.0-7.7 [facility] Neutrophils/100 WBC (Bld) 61.2 % 47-70 [facility] Potassium [Moles/Vol] 4.4 mmol/L 3.5-5.1 [facility] Protein [Mass/Vol] 7.1 g/dL 6.4-8.2 [facility] Sodium [Moles/Vol] 134 mmol/L 136-145 [facility] Triglyceride [Mass/Vol] 300 mg/dL <199 [facility] Comment on above: The drugs N-Acetylcy steine and Metamizole may falsely depress this assay.Serum Triglycerides Reference Interval Normal <150 mg/dL Borderline high 150 - 199 mg/dL High 200 - 499 mg/dL Very High > or = 500 mg/dL WBC (Bld) [#/Vol] 4.5 10*3/uL 4.4-11.0 [facility] Blood erythrocytes count (nu mber/volume)Ordered By: Dr. Mcclure on 06-29-2022 RBC (Bld) [#/Vol] 4.05 10*6/uL 4.2-5.4 [facility] Blood hemoglobin measurement (mass/volume)Ordered By: Dr. Mcclure on 06-29-2022 Hemoglobin (Bld) [Mass/Vol] 13.9 g/dL 12.0-15.0 [facility] Blood lymphocytes/100 leukoc ytesOrdered By: Dr. Mcclure on 06-29-2022 Lymphocytes/100 WBC (Bld) 25.2 % 19-41 [facility] Blood monocytes/100 leukocyt esOrdered By: Dr. Mcclure on 06-29-2022 Monocytes/100 WBC (Bld) 10.0 % 0-10 [facility] Blood platelet mean volumeOr dered By: Dr. Mcclure on 06-29-2022 Platelet mean volume (Bld) [Entitic vol] 9.3 fL 6.2-12.0 [facility] Determination of erythrocyte mean corpuscular volume (MCV)Ordered By: Dr. Mcclure on 06-29-2022 MCV (RBC) [Entitic vol] 99.8 fL 81-99 [facility] Hematocrit Auto (Bld) [Volum e fraction]Ordered By: Dr. Mcclure on 06-29-2022 Hematocrit (Bld) [Volume fraction] 40.4 % 37-47 [facility] - Chemistry and C hemistry - challengeOrdered By: Dr. Mcclure on 06-29-2022 ALP [Catalytic activity/Vol] 67 U/L 45-117 [facility] ALT [Catalytic activity/Vol] 25 U/L 13-56 [facility] CO2 [Moles/Vol] 25.0 mmol/L 21.0-32.0 [facility] Cobalamin (Vitamin B12) [Mass/Vol] 651 pg/mL 211-911 [facility] Free T4 [Mass/Vol] 0.76 ng/dL 0.76-1.46 [facility] Globulin (S) [Mass/Vol] 3.3 g/dL 2.2-4.2 [facility] Urea nitrogen/Creatinine [Mass ratio] 23.7 mg/mg 10-20 [facility] - Hematology and Cell countsOrdered By: Dr. Mcclure on 06-29-2022 Erythrocyte distribution width (RBC) [Entitic vol] 41.1 fL 35.1-43.9 [facility] Erythrocyte distribution width (RBC) [Ratio] 11.2 % 11.6-14.6 [facility] Immature granulocytes/100 WBC (Bld) 0.200 % 0.0-0.9 [facility] Comment on above: IG% - Immature Granu locytes (promyelocytes, myelocytes and metamyelocytes) > 1% indicates that a LEFT SHIFT is Present. MCH (RBC) [Entitic mass] 34.3 pg 27.0-32.0 [facility] Nucleated RBC/100 WBC (Bld) [Ratio] 0 % 0-5 [facility] MCHC Auto (RBC) [Mass/Vol]Or dered By: Dr. Mcclure on 06-29-2022 MCHC (RBC) [Mass/Vol] 34.4 g/dL 32-36 [facility] No Panel InformationOrdered By: Dr. Mcclure on 06-29-2022 Estimated GFR (MDRD) Amer 93 mL/min >60 [facility] Comment on above: GFR Calc Estimated GFR (MDRD) Non-Af Amer 77 mL/min >60 [facility] Comment on above: Non- GFR Calc Thyroid Stimulating Hormone (TSH) 2.16 uIU/mL 0.358-3.74 [facility] Vitamin D 25-Hydroxy 37.6 ng/mL [facility] Comment on above: Vitamin D 25(OH) Sta tus Range Deficiency <20 ng/mL (50nmol/L) Insufficiency 20 - 30 ng/mL (50 - 75 nmol/L) Sufficiency 30 - 100 ng/mL (75 - 250 nmol/L) Toxicity >100 ng/mL (>250 nmol/L) Platelets bldOrdered By: Dr. Mcclure on 06-29-2022 Platelets (Bld) [#/Vol] 286 10*3/uL 150-450 [facility] Serum or plasma albumin julius urement (mass/volume)Ordered By: Dr. Mcclure on 06-29-2022 Albumin [Mass/Vol] 3.8 g/dL 3.2-5.0 [facility] Serum or plasma albumin/glob ulin mass ratioOrdered By: Dr. Mcclure on 06-29-2022 Albumin/Globulin [Mass ratio] 1.2 {ratio} 0.9-2.4 [facility] Serum or plasma calcium julius urement (mass/volume)Ordered By: Dr. Mcclure on 06-29-2022 Calcium [Mass/Vol] 9.1 mg/dL 8.5-10.1 [facility] Serum or plasma cholesterol in HDL measurement (mass/volume)Ordered By: Dr. Mcclure on 06-29-2022 Cholesterol in HDL [Mass/Vol] 67 mg/dL >40 [facility] Comment on above: The drugs N-Acetylcy steine and Metamizole may falsely depress this assay. Reference Range HDL <40 mg/dL Low HDL Cholesterol HDL >or= 60 mg/dL High HDL Cholesterol Serum or plasma cholesterol in VLDL measurement (mass/volume)Ordered By: Dr. Mcclure on 06-29-2022 Cholesterol in VLDL [Mass/Vol] 60 mg/dL 5-40 [facility] Serum or plasma creatinine m easurement (mass/volume)Ordered By: Dr. Mcclure on 06-29-2022 Creatinine [Mass/Vol] 0.76 mg/dL 0.55-1.02 [facility] Comment on above: The validity of the calculated GFR & GFRAA in patients over 70 years has not been determined. Clinical correlation is essential. Serum or plasma low density lipoprotein (LDL) cholesterol measurement (mass/volume)Ordered By: Dr. Mcclure on 06-29-2022 Cholesterol in LDL [Mass/Vol] 58 mg/dL 0-130 [facility] Serum or plasma urea nitroge n measurement (mass/volume)Ordered By: Dr. Mcclure on 06-29-2022 Urea nitrogen [Mass/Vol] 18 mg/dL 7-18 [facility] Thin prep Papanicolaou smear with manual screeningOrdered By: Dr. Mcclure on 06-29-2022 Thin prep Papanicolaou smear with manual screening 24 U/L 15-37 [facility] Thin prep Papanicolaou smear with manual screening 9 5-15 [facility] Basophil percentageOrdered B y: Dr. Mcclure on 04-14-2022 Bilirubin [Mass/Vol] 0.40 mg/dL 0.20-1.00 [facility] Comment on above: For patients on eltr ombopag therapy, use of Dimension Vass TBIL is not recommended. Chloride [Moles/Vol] 99 mmol/L 98-107 [facility] Glucose [Mass/Vol] 92 mg/dL 74-106 [facility] Potassium [Moles/Vol] 4.0 mmol/L 3.5-5.1 [facility] Protein [Mass/Vol] 6.9 g/dL 6.4-8.2 [facility] Sodium [Moles/Vol] 133 mmol/L 136-145 [facility] Laboratory - Chemistry and C hemistry - challengeOrdered By: Dr. Mcclure on 04-14-2022 ALP [Catalytic activity/Vol] 67 U/L 45-117 [facility] ALT [Catalytic activity/Vol] 25 U/L 13-56 [facility] CO2 [Moles/Vol] 30.0 mmol/L 21.0-32.0 [facility] Globulin (S) [Mass/Vol] 3.4 g/dL 2.2-4.2 [facility] Urea nitrogen/Creatinine [Mass ratio] 26.9 mg/mg 10-20 [facility] No Panel InformationOrdered By: Dr. Mcclure on 04-14-2022 Estimated GFR (MDRD) Amer 90 mL/min >60 [facility] Comment on above: GFR Calc Estimated GFR (MDRD) Non-Af Amer 75 mL/min >60 [facility] Comment on above: Non- GFR Calc Vitamin D 25-Hydroxy 41.9 ng/mL [facility] Comment on above: Vitamin D 25(OH) Sta tus Range Deficiency <20 ng/mL (50nmol/L) Insufficiency 20 - 30 ng/mL (50 - 75 nmol/L) Sufficiency 30 - 100 ng/mL (75 - 250 nmol/L) Toxicity >100 ng/mL (>250 nmol/L) Serum or plasma albumin julius urement (mass/volume)Ordered By: Dr. Mcclure on 04-14-2022 Albumin [Mass/Vol] 3.5 g/dL 3.2-5.0 [facility] Serum or plasma albumin/glob ulin mass ratioOrdered By: Dr. Mcclure on 04-14-2022 Albumin/Globulin [Mass ratio] 1.0 {ratio} 0.9-2.4 [facility] Serum or plasma calcium julius urement (mass/volume)Ordered By: Dr. Mcclure on 04-14-2022 Calcium [Mass/Vol] 9.1 mg/dL 8.5-10.1 [facility] Serum or plasma creatinine m easurement (mass/volume)Ordered By: Dr. Mcclure on 04-14-2022 Creatinine [Mass/Vol] 0.78 mg/dL 0.55-1.02 [facility] Comment on above: The validity of the calculated GFR & GFRAA in patients over 70 years has not been determined. Clinical correlation is essential. Serum or plasma urea nitroge n measurement (mass/volume)Ordered By: Dr. Mcclure on 04-14-2022 Urea nitrogen [Mass/Vol] 21 mg/dL 7-18 [facility] Thin prep Papanicolaou smear with manual screeningOrdered By: Dr. Mcclure on 04-14-2022 Thin prep Papanicolaou smear with manual screening 24 U/L 15-37 [facility] Thin prep Papanicolaou smear with manual screening 4 5-15 [facility] OBSOLETEon 06-01-2021 OBSOLETE Refill (JAVED) KATRINA MANCINI ([id number]) 1940 F Date Time Provider Department 06/01/21 [...] SULFA (SULFONAMIDE ANTIBIOTICS) 10/17/2002 Comments: nasea vomtting [id number] ANTIMIGRAINE [id number]/17/2002 Comments: heart palpitations Date Reviewed: 09/22/2020 Reviewed by: Rose ([facility]) Bijan - Fully Assessed Reason for [...] Encounter Status:Closed by AB SHAFFER on 06/01/21 [facility] OBSOLETEon 04-17-2021 OBSOLETE Refill (NEURBA) EMILEKATRINA ([id number]) 1940 F Date Time Provider Department 04/17/21 AB SHAFFER JR NEURELVIS During your visit today, we recorded the [...] SULFA (SULFONAMIDE ANTIBIOTICS) 10/17/2002 Comments: nasea vomtting [id number] ANTIMIGRAINE [id number]/17/2002 Comments: heart palpitations Date Reviewed: 09/22/2020 Reviewed by: Rose ([facility]) Bijan - Fully Assessed Reason for [...] Encounter Status:Closed by AB SHAFFER on 04/17/21 [facility] OBSOLETEon 10-31-2020 OBSOLETE Refill (NEURBA) KATRINA MANCINI ([id number]) 1940 F Date Time Provider Department 10/31/20 AB SHAFFER JR NEURELVIS During your visit today, we recorded the [...] SULFA (SULFONAMIDE ANTIBIOTICS) 10/17/2002 Comments: nasea vomtting [id number] ANTIMIGRAINE [id number]/17/2002 Comments: heart palpitations Date Reviewed: 09/22/2020 Reviewed by: Rose ([facility]) Bijan - Fully Assessed Reason for [...] Encounter Status:Closed by AB SHAFFER on 11/05/20 [facility] OBSOLETEon 08-23-2020 OBSOLETE Refill (NEAGAK) KATRINA MACNINI ([id number]) 1940 F Date Time Provider Department 08/23/20 NISHA BAR ([facility], [facility]) JAVED During your visit today, we recorded [...] - Sulfa (Sulfonamide * nasea vomtting - Xccovlls-[id number] Anti* heart palpitations (home) Last Visit date: Visit date not found Future appointment: Visit date not found The patients preferred pharmacy has been captured for this encounter? yes Request is for script(s) to be escript to pharmacy. Tammy Sadler [facility] 08/26/2020 2:53 PM Signed Patient called our [...] SULFA (SULFONAMIDE ANTIBIOTICS) 10/17/2002 Comments: nasea vomtting [id number] ANTIMIGRAINE [id number]/17/2002 Comments: heart palpitations Date Reviewed: 12/29/2019 Reviewed [...] Encounter Status:Closed by AB SHAFFER on 08/26/20 [facility] OBSOLETEon 06-28-2020 OBSOLETE Refill (NEURBA) KATRINA MANCINI ([id number]) 1940 F Date Time Provider Department 06/28/20 [...] - Sulfa (Sulfonamide * nasea vomtting - Ojptiqdw-0-Ea2 Anti* heart palpitations (home) Last Visit date: [...] SULFA (SULFONAMIDE ANTIBIOTICS) 10/17/2002 Comments: nasea vomtting [id number] ANTIMIGRAINE [id number]/17/2002 Comments: heart palpitations Date Reviewed: 12/29/2019 Reviewed [...] AB SHAFFER on 06/30/20 Normal [facility] Mis. Teston 12-25-2019 [facility]. Test Result SEE BELOW Normal [facility] Comment on above: Result Comment: Hemo globin A1c 5.3 4.3-5.6 % [place] [employer] guidelines indicate that patients with HgbA1c in the range 5.7-6.4% are at increased risk for development of diabetes, and intervention by lifestyle modification may be beneficial. HgbA1c greater or equal to 6.5% is considered diagnostic of diabetes. Est. Average Glucose 105 mg/dL eAG: (Estimated average glucose) is a calculated value from HgbA1c and is technical sales representative of the average blood glucose level in the last 2-3 month period. Performing Laboratory: [facility] [address] [place] [address] Performed By: #### G OX #### [facility] [address] [place] [address] Protein Electrophoresis, Ser umon 12-25-2019 Albumin [Mass/Vol] 4.27 g/dL High 3.37-4.23 [facility] Comment on above: Performed By: #### S EPGX #### [place] [address] Alpha 1 Globulin 0.21 gm/dL Normal 0.18-0.31 [facility] Comment on above: Performed By: #### S EPGX #### [place] [address] Alpha 2 Globulin 0.82 gm/dL Normal 0.52-0.97 [facility] Comment on above: Performed By: #### S EPGX #### [place] [address] Beta Globulin 0.73 gm/dL Low 0.84-1.36 [facility] Comment on above: Performed By: #### S EPGX #### [place] [address] Gamma Globulin 0.86 gm/dL Normal 0.70-1.44 [facility] Comment on above: Performed By: #### S EPGX #### [place] [address] Interpretation SEE BELOW Normal [facility] Comment on above: Result Comment: No d efinitive M protein is identified on protein electrophoresis. Performed By: #### S EPGX #### [place] [address] M David Concentratn 0.00 gm/dL Normal 0.00 [facility] Comment on above: Performed By: #### S EPGX #### [facility] [address] [place] [address] Protein [Mass/Vol] 6.9 g/dL Normal 6.3-8.0 [facility] Comment on above: Performed By: #### S EPGX #### [place] [address] Protein [Mass/Vol] N/A Normal [facility] Comment on above: Performed By: #### S EPGX #### [place] [address] Staff Review SEE BELOW Normal [facility] Comment on above: Result Comment: Revi ewed by Tammy York MD ([id number]) Performing Laboratory: [place] [id number] [place] [address] Performed By: #### S EPGX #### [place] [address] Misc. Teston 12-24-2019 [facility] Order Code HBA1C Normal [facility] Comment on above: Performed By: #### G OX #### [place] [address] Test Name Hgb A1C Normal [facility] Comment on above: Performed By: #### G OX #### [place] [address] Sed Rateon 12-22-2019 Sed Rate 7 mm/hr Normal 0-20 [facility] Comment on above: Performed By: #### E SR #### [place] [address] Free Thyroxineon 12-21-2019 Free T4 [Mass/Vol] 0.9 ng/dL Normal 0.9-1.7 [facility] Comment on above: Result Comment: Jelly [...] result. Performed By: #### F T4A #### [facility] [address] [place], [place] [address] TSHon 12-21-2019 TSH Qn 2.580 uIU/mL Normal 0.270-4.200 [facility] Comment on above: Result Comment: Preg [...] result. Performed By: #### T SH3 #### [place] [id number] Vitamin B12on 12-21-2019 Cobalamin (Vitamin B12) [Mass/Vol] 567 pg/mL Normal 232-1245 [facility] Comment on above: Result Comment: Jelly [...] result. Performed By: #### B 12 #### [address] [address] Final Surgical Pathology Rep katiuska 05-30-2019 Final Surgical Pathology Report . Pathology Reports Accession: Collected Date/Time: Received Date/Time: Pathologist: [id number] 05/25/2019 09:56 EST 05/28/2019 10:43 MD NONA GUO Final Surgical Pathology Report DIAGNOSIS: A) COLON, BIOPSY: NO SPECIFIC PATHOLOGIC CHANGES. B) DISTAL TRANSVERSE COLON, BIOPSY: TUBULAR ADENOMA. C) SIGMOID COLON, BIOPSY: HYPERPLASTIC POLYP. COMMENT: [facility]# [id number] CLINICAL INFORMATION: Procedure: COLONOSCOPY WITH POLYPECTOMIES AND [...] tissue. TS -1 Dictated by Moni DUNN ([facility]) MICROSCOPIC DESCRIPTION: A,B&C) Slides reviewed. Electronically Signed by Pathology Report verified by [facility] Electronically signed by NONA BABB MD Sign out Date: 05/30/2019 16:51 Performing Lab: [facility], [address] [place] [address] ([place]) Comment on above: Performed By: #### S PFR #### [place] [address] Office Visit: est annualon 1 Documentation of current medications (procedure) Done Invalid Interpretation Code [facility] Fall risk assessment Yes Invalid Interpretation Code [facility] Tobacco smoking status NHIS Never Invalid Interpretation Code [facility] Tobacco smoking status NHIS Never smoker Invalid Interpretation Code [facility] Tobacco use HS Never smoker Invalid Interpretation Code [facility] Vital Signs Date Time Vital Sign Value Performing Clinician Faci lity 01-02-2025 12:54-0400 Body height 160.[address] Magalys Mcclure MD Work Phone: [facility] 01-02-2025 12:54-0400 Body mass index (BMI) [Ratio] 23.2 kg/m2 Dr. Magalys Mcclure MD Work Phone: [facility] 01-02-2025 12:54-0400 Body weight 59.[address] Magalys Mcclure MD Work Phone: [facility] 01-02-2025 12:54-0400 Diastolic blood pressure 75 mm[Hg] Dr. Magalys Mcclure MD Work Phone: [facility] 01-02-2025 12:54-0400 Heart rate 84 /min Dr. Magalys Mcclure MD Work Phone: 5([phone])200-617777 [place] [address] 01-02-2025 12:54-0400 Respiratory rate 16 /min Dr. Magalys Mcclure MD Work Phone: 2(055)078-779077 [address] 01-02-2025 12:54-0400 SaO2% (BldA) [Mass fraction] 96 % Dr. Magalys Mcclure MD Work Phone: 3(327)006-883477 [place] [address] 01-02-2025 12:54-0400 Systolic blood pressure 132 mm[Hg] Dr. Magalys Mcclure MD Work Phone: 2(891)954-141777 [place] [address] 07-10-2024 08:50-0500 Body height 160.[address] Magalys Mcclure MD Work Phone: 0(178)732-816520 [place] [address] 07-10-2024 08:50-0500 Body mass index (BMI) [Ratio] 24.3 kg/m2 Dr. Magalys Mcclure MD Work Phone: 7(419)[phone] [place] [address] 07-10-2024 08:50-0500 Body weight 62.[address] Magalys Mcclure MD Work Phone: 8(217)850-846277 [place] [address] 07-10-2024 08:50-0500 Diastolic blood pressure 59 mm[Hg] Dr. Magalys Mcclure MD Work Phone: 2(008)660-972777 [place] [address] 07-10-2024 08:50-0500 Heart rate 58 /min Dr. Magalys Mcclure MD Work Phone: 1(448)661-393977 [place] [address] 07-10-2024 08:50-0500 Respiratory rate 16 /min Dr. Magalys Mcclure MD Work Phone: 0([phone])762-814577 [place] [address] 07-10-2024 08:50-0500 Systolic blood pressure 107 mm[Hg] Dr. Magalys Mcclure MD Work Phone: [facility] 05-24-2024 13:47-0500 Body mass index (BMI) [Ratio] 23.9 kg/m2 Dr. Magalys Mcclure MD Work Phone: [facility] 05-24-2024 13:47-0500 Body weight 61.[address] Magalys Mcclure MD Work Phone: [facility] 05-24-2024 13:47-0500 Diastolic blood pressure 70 mm[Hg] Dr. Magalys Mcclure MD Work Phone: [facility] 05-24-2024 13:47-0500 Systolic blood pressure 136 mm[Hg] Dr. Magalys Mcclure MD Work Phone: [facility] 03-02-2024 15:22-0400 Body mass index (BMI) [Ratio] 22.53 kg/m2 Ab Shaffer Jr., MD Work Phone: [facility] 03-02-2024 15:22-0400 Body weight 58.6 kg Ab Shaffer Jr., MD Work Phone: [facility] 03-02-2024 15:22-0400 Diastolic blood pressure 71 mm[Hg] Ab Shaffer Jr., MD Work Phone: [facility] 03-02-2024 15:22-0400 Heart rate 61 /min Ab Shaffer Jr., MD Work Phone: [facility] 03-02-2024 15:22-0400 SaO2% (BldA) [Mass fraction] 97 % Ab Shaffer Jr., MD Work Phone: [facility] 03-02-2024 15:22-0400 Systolic blood pressure 124 mm[Hg] Ab Shaffer Jr., MD Work Phone: [facility] 09-30-2023 10:38-0400 Body height 160.[address] Magalys Mcclure Work Phone: [facility] 09-30-2023 10:35-0400 Body mass index (BMI) [Ratio] 23.7 kg/m2 Dr. Magalys Mcclure Work Phone: [facility] 09-30-2023 10:35-0400 Body weight 60.[address] Magalys Mcclure Work Phone: [facility] 09-30-2023 10:35-0400 Diastolic blood pressure 71 mm[Hg] Dr. Magalys Mcclure Work Phone: [facility] 09-30-2023 10:35-0400 Systolic blood pressure 162 mm[Hg] Dr. Magalys Mcclure Work Phone: [facility] 08-01-2023 16:07-0500 Body weight 59.6 kg Ab Shaffer Jr., MD Work Phone: [facility] 08-01-2023 16:07-0500 Diastolic blood pressure 78 mm[Hg] Ab Shaffer Jr., MD Work Phone: [facility] 08-01-2023 16:07-0500 Heart rate 77 /min Ab Shaffer Jr., MD Work Phone: [facility] 08-01-2023 16:07-0500 Respiratory rate 16 /min Ab Shaffer Jr., MD Work Phone: [facility] 08-01-2023 16:07-0500 SaO2% (BldA) [Mass fraction] 97 % Ab Shaffer Jr., MD Work Phone: [facility] 08-01-2023 16:07-0500 Systolic blood pressure 136 mm[Hg] Ab Shaffer Jr., MD Work Phone: [facility] 04-14-2023 11:34-0400 Body height 160.[address] Magalys Mcclure Work Phone: [facility] 04-14-2023 11:34-0400 Body mass index (BMI) [Ratio] 23.6 kg/m2 Dr. Magalys Mcclure Work Phone: [facility] 04-14-2023 11:34-0400 Body weight 60.[address] Magalys Mcclure Work Phone: [facility] 04-14-2023 11:34-0400 Diastolic blood pressure 78 mm[Hg] Dr. Magalys Mcclure Work Phone: [facility] 04-14-2023 11:34-0400 Heart rate 81 /min Dr. Magalys Mcclure Work Phone: [facility] 04-14-2023 11:34-0400 Respiratory rate 16 /min Dr. Magalys Mcclure Work Phone: [facility] 04-14-2023 11:34-0400 Systolic blood pressure 145 mm[Hg] Dr. Magalys Mcclure Work Phone: [facility] 03-17-2023 13:53-0400 Body mass index (BMI) [Ratio] 23.4 kg/m2 Dr. Magalys Mcclure Work Phone: [facility] 03-17-2023 13:53-0400 Body weight 60.[address] Magalys Mcclure Work Phone: [facility] 03-17-2023 13:53-0400 Diastolic blood pressure 82 mm[Hg] Dr. Magalys Mcclure Work Phone: [facility] 03-17-2023 13:53-0400 Systolic blood pressure 158 mm[Hg] Dr. Magalys Mcclure Work Phone: [facility] 02-21-2023 11:38-0400 Body weight 60.24 kg Ab Shaffer Jr., MD Work Phone: [facility] 02-21-2023 11:38-0400 Diastolic blood pressure 81 mm[Hg] Ab Shaffer Jr., MD Work Phone: [facility] 02-21-2023 11:38-0400 Heart rate 76 /min Ab Shaffer Jr., MD Work Phone: [facility] 02-21-2023 11:38-0400 Respiratory rate 16 /min Ab Shaffer Jr., MD Work Phone: [facility] 02-21-2023 11:38-0400 SaO2% (BldA) [Mass fraction] 96 % Ab Shaffer Jr., MD Work Phone: [facility] 02-21-2023 11:38-0400 Systolic blood pressure 145 mm[Hg] Ab Shaffer Jr., MD Work Phone: [facility] 10-20-2022 15:56-0400 Body temperature 97.81 [degF] Vicenta Borjaser PA-C Work Phone: [facility] 10-20-2022 15:56-0400 Body weight 64.86 kg Vicenta Queener PA-C Work Phone: [facility] 10-20-2022 15:56-0400 Diastolic blood pressure 84 mm[Hg] Vicenta Queener PA-C Work Phone: [facility] 10-20-2022 15:56-0400 Heart rate 75 /min Vicenta Queener PA-C Work Phone: [facility] 10-20-2022 15:56-0400 Respiratory rate 16 /min Vicenta Queener PA-C Work Phone: [facility] 10-20-2022 15:56-0400 SaO2% (BldA) [Mass fraction] 95 % Vicenta Queener PA-C Work Phone: [facility] 10-20-2022 15:56-0400 Systolic blood pressure 146 mm[Hg] Vicenta Queener PA-C Work Phone: [facility] 05-12-2022 15:30-0500 Body height 160.[address] Magalys Mcclure Work Phone: [facility] 05-12-2022 15:30-0500 Body mass index (BMI) [Ratio] 24.5 kg/m2 Dr. Magalys Mcclure Work Phone: [facility] 05-12-2022 15:30-0500 Body weight 62.[address] Magalys Mcclure Work Phone: [facility] 05-12-2022 15:30-0500 Diastolic blood pressure 76 mm[Hg] Dr. Magalys Mcclure Work Phone: [facility] 05-12-2022 15:30-0500 Systolic blood pressure 165 mm[Hg] Dr. Magalys Mcclure Work Phone: [facility] 01-22-2022 11:36-0400 Body temperature 97.3 [degF] Dr. Magalys Mcclure Work Phone: [facility] Work Phone: 01-22-2022 11:36-0400 Diastolic blood pressure 59 mm[Hg] Dr. Magalys Mcclure Work Phone: [facility] Work Phone: 01-22-2022 11:36-0400 Heart rate 70 /min Dr. Magalys Mcclure Work Phone: [facility] Work Phone: 01-22-2022 11:36-0400 Respiratory rate 16 /min Dr. Magalys Mcclure Work Phone: [facility] Work Phone: 01-22-2022 11:36-0400 SaO2% (BldA) [Mass fraction] 98 % Dr. Magalys Mcclure Work Phone: [facility] Work Phone: 01-22-2022 11:36-0400 Systolic blood pressure 162 mm[Hg] Dr. Magalys Mcclure Work Phone: [facility] Work Phone: 01-22-2022 08:23-0400 Body height 160.[address] Magalys Mcclure Work Phone: [facility] Work Phone: 01-22-2022 08:23-0400 Body mass index (BMI) [Ratio] 24.3 kg/m2 Dr. Magalys Mcclure Work Phone: [facility] Work Phone: 01-22-2022 08:23-0400 Body weight 62.[address] Magalys Mcclure Work Phone: [facility] Work Phone: 03-18-2017 13:11-0400 BMI (Body Mass Index) 25.78 kg/m2 Taryn Lee MD [facility] 03-18-2017 13:11-0400 Body Temperature 97.4 [degF] Taryn Lee MD [facility] 03-18-2017 13:11-0400 Body Temperature 97.39 [degF] Taryn Lee MD [facility] 03-18-2017 13:11-0400 BP Diastolic 73 mm[Hg] Taryn Lee MD [facility] 03-18-2017 13:11-0400 BP Systolic 147 mm[Hg] Taryn Lee MD [facility] 03-18-2017 13:11-0400 Height 162.56 cm Taryn Lee MD [facility] 03-18-2017 13:11-0400 Pulse (Heart Rate) 63 /min Taryn Lee MD [facility] 03-18-2017 13:11-0400 Respiratory Rate 16 /min Taryn Lee MD [facility] 03-18-2017 13:11-0400 Weight 68.13 kg Taryn Lee MD [facility] Encounters Encounter Date Encounter Type Care Provider Facility Start: 04-15-2025 ambulatory Magalys Vitale y:[facility] Start: 04-01-2025 End: 04-02-2025 ambulatory MAGALYS MCCLURE Facility:[facility] Start: 03-08-2025 End: 03-08-2025 ambulatory AB SHAFFER JR Facility:[facility] Start: 03-08-2025 End: 03-08-2025 ambulatory AB SHAFFER JR Facility:[facility] Start: 02-01-2025 ambulatory Samir Forrest Facility:[facility] Start: 02-01-2025 Non-patient / Non-visit Dr. Babin Of janis [facility] Start: 01-31-2025 ambulatory Magalys Mcclure Facilit y:[facility] Start: 01-31-2025 Non-patient / Non-visit Dr. Babin Of janis [facility] Start: 01-31-2025 End: 01-31-[address] Magalys Mcclure MD Work Phone: -Cardiovascular Services Start: 01-31-2025 End: 01-31-[address] Samir Forrest MD -Cardiovascular Services Work Phone: Start: 01-31-2025 End: 01-31-2025 ambulatory Magalys Mcclure Facility:[facility] Start: 01-25-2025 End: 01-25-2025 Refill Ab Shaffer MD Work Phone: Neurology Comment on above: Refill Request Start: 01-21-2025 Non-patient / Non-visit Amanda MIDDLETON -[facility] Work Phone: Start: 01-21-2025 ambulatory Magalys Mcclure Facilit y:[facility] Start: 01-21-2025 Non-patient / Non-visit Dr. Tristen daniels MD -[facility] Start: 01-21-2025 End: 01-21-[address] Magalys Mcclure MD Work Phone: -Ultrasound [facility] Start: 01-21-2025 End: 01-21-[address] Samir Forrest MD -Ultrasound [facility] Work Phone: Start: 01-21-2025 End: 01-21-2025 ambulatory Magalys Mcclure Facility:[facility] Start: 01-02-2025 End: 01-02-[address] Samir Forrest MD -[facility] Work Phone: Start: 01-02-2025 End: 01-02-[address] Magalys Mcclure MD Work Phone: -[facility] Start: 12-24-2024 End: 12-24-2024 Refill Ab Shaffer MD Work Phone: Neurology Comment on above: Refill Request Start: 12-19-2024 End: 12-21-2024 Telephone encounter Ab Shaffer MD Work Phone: Neurology Comment on above: Dr Mcclure office [facility] faxin overnight pulse [facility] Start: 11-20-2024 End: 11-20-[address] Magalys Mcclure MD Work Phone: [facility] Work Phone: Start: 11-20-2024 End: 11-20-[address] Magalys Mcclure MD -Laboratory [place] Work Phone: Start: 11-20-2024 End: 11-20-2024 ambulatory Magalys Mcclure Facility:[facility] Start: 08-16-2024 End: 08-16-[address] Magalys Mcclure MD Work Phone: [facility] Work Phone: Start: 08-16-2024 End: 08-16-[address] [facility] Start: 08-16-2024 End: 08-16-2024 ambulatory Maaglys Mcclure Facility:[facility] Start: 07-10-2024 End: 07-10-[address] Samir Forrest MD -[facility] Work Phone: Start: 07-10-2024 End: 07-10-2024 ambulatory Magalys Mcclure Facility:[facility] Start: 06-19-2024 End: 08-03-2024 Refill Ab Shaffer MD Work Phone: Neurology Comment on above: Refill Request Start: 06-15-2024 End: 08-08-2024 ambulatory MAGALYS MCCLURE MD Facility:[facility] Start: 06-15-2024 End: 08-08-2024 Physical therapy management NDE CHIU MD [facility] Start: 05-31-2024 End: 05-31-[address] Ned Chiu MD -[facility] Work Phone: Start: 05-31-2024 End: 05-31-2024 ambulatory Magalys Mcclure Facility:[facility] Start: 05-24-2024 End: 05-24-[address] Taryn Lee MD -[facility] Work Phone: Start: 05-24-2024 End: 05-24-[address] Taryn Lee MD [facility] Start: 05-24-2024 End: 05-24-2024 ambulatory Magalys Mcclure Facility:[facility] Start: 05-15-2024 End: 05-15-[address] Magalys Mcclure MD -Radiology, [place] Work Phone: Start: 05-15-2024 End: 05-15-2024 ambulatory Magalys Mcclure Facility:[facility] Start: 04-27-2024 End: 04-27-2024 ambulatory [facility] Start: 03-02-2024 End: 03-02-2024 Patient encounter procedure Ab Shaffer MD Work Phone: Neurology Comment on above: Generalized convulsi ve epilepsy (HCC) (Primary Dx); Hyponatremia; MELA (obstructive sleep apnea); Migraine without aura and without status migrainosus, not intractable; Dizziness Start: 02-17-2024 End: 02-20-2024 Refill Ab Shaffer MD Work Phone: Neurology Comment on above: Refill Request Start: 10-18-2023 Refill Ab kline MD Work Phone: [facility] Comment on above: Refill Request Start: 09-30-2023 End: 09-30-[address] Magalys Mcclure Work Phone: [facility] Work Phone: Start: 09-30-2023 End: 09-30-[address] Magalys Mcclure Work Phone: [facility]Laboratory, Spec[facility] Work Phone: Start: 09-30-[address] Fredy Mcclure Work Phone: [facility] Start: 09-30-2023 End: 09-30-[address] Magalys Mcclure Work Phone: [facility] Start: 09-30-2023 End: 09-30-[address] Magalys Mcclure Work Phone: [facility] Work Phone: Start: 08-01-2023 End: 08-01-2023 Patient [...] 07-22-[address] Magalys Mcclure Work Phone: [facility] Work Phone: Start: 07-22-2023 End: 07-22-[address] Magalys Mcclure Work Phone: [facility], [place] Work Phone: Start: 07-06-[address] Magalys Mcclure Work Phone: [facility]-Speech Therapy Work Phone: Start: 06-23-2023 End: 06-23-[address] Magalys Mcclure Work Phone: [facility] Work Phone: Start: 06-23-2023 End: 06-23-[address] Magalys Mcclure Work Phone: [facility] [place] Work Phone: Start: 06-16-[address] Magalys Mcclure Work Phone: [facility] Work Phone: Start: 05-25-2023 End: 05-25-[address] Magalys Mcclure Work Phone: [facility] Work Phone: Start: 05-25-2023 End: 05-25-[address] Magalys Mcclure Work Phone: [facility]-Radiology, [facility] Work Phone: Start: 05-24-2023 End: 05-24-[address] Magalys Mcclure Work Phone: [facility] Work Phone: Start: 05-24-2023 End: 05-24-[address] Magalys Mcclure Work Phone: [facility]-Outpatient Breast Imaging Work Phone: Start: 04-29-2023 End: 04-29-2023 ambulatory Marcella Pedro PT [facility] Comment on above: Dizziness and giddin ess (Primary Dx) Start: 04-21-2023 End: 04-21-[address] Magalys Mcclure Work Phone: [facility] Work Phone: Start: 04-21-2023 End: 04-21-[address] Magalys Mcclure Work Phone: [facility]Laboratory, [facility] Work Phone: Start: 04-20-2023 Olaf kline MD Work Phone: [facility] Comment on above: Refill Request Start: 04-14-2023 End: 04-14-[address] Magalys Mcclure Work Phone: [facility] Work Phone: Start: 04-14-2023 End: 04-14-[address] [facility] Start: 04-14-2023 End: 04-14-[address] 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 Magalys Mcclure Work Phone: [facility] Work Phone: Start: 04-01-2023 End: 04-01-[address] Magalys Mcclure Work Phone: [facility] Start: 03-30-2023 End: 03-30-2023 ambulatory Marcella Pedro PT [facility] Comment on above: Dizziness and giddin ess (Primary Dx) Start: 03-18-2023 End: 03-18-2023 Patient encounter procedure Sharonda Duran PhD Work Phone: Audiology Comment on above: Dizziness (Primary D x); Vestibular dysfunction, right Start: 03-17-2023 End: 03-17-[address] Magalys [facility]clure [facility] Work [facility] Start: 03-17-2023 End: 03-17-[address] Magalys Mcclure Work Phone: [facility] Work Phone: Start: 03-16-2023 End: 03-16-[address] Magalys Mcclure Work Phone: [facility] Work Phone: Start: 03-11-2023 Telephone encounter Ab Shaffer MD Work Phone: Neurology Comment on above: Patient Question Start: 03-03-2023 End: 03-03-[address] Magalys Mcclure Work Phone: [facility] Work Phone: Start: 03-03-2023 End: 03-03-2023 Subsequent hospital visit by physician [facility] (I-Stat) Work Phone: Cat [...] carotid stenosis Start: 02-18-2023 End: 02-18-2023 ambulatory [facility] Work Phone: Start: 02-18-2023 End: 02-18-2023 Patient encounter procedure [facility] Start: 02-02-2023 End: 02-02-2023 ambulatory [facility] Work Phone: Start: 02-02-2023 End: 02-02-2023 Patient encounter procedure [facility]-Cat Scan, [facility] Work Phone: Start: 01-12-2023 Telephone encounter Vicenta moore PA-C Work Phone: Neurology Comment on above: Fax Results Start: 12-29-2022 Refill Ab kline MD Work Phone: Neurology Comment on above: Refill Request Start: 12-28-2022 End: 12-28-2022 ambulatory [facility] Work Phone: Start: 12-28-2022 End: 12-28-2022 Patient encounter procedure [facility] [place] Work Phone: Start: 12-17-2022 End: 12-17-2022 ambulatory Marcella O'Anthony PT [facility] Comment on above: Dizziness (Primary D x); Unsteadiness Start: 12-01-2022 End: 12-01-2022 ambulatory Marcella O'Anthony PT [facility] Comment on above: Unsteadiness (Primar y Dx); Dizziness Start: 11-30-2022 Telephone encounter Vicenta moore PA-C Work Phone: Neurology Comment on above: Results Start: 11-29-2022 End: 11-29-2022 Subsequent hospital visit by physician [facility] [employer] [facility] (I-Stat/1.5t) Work Phone: Radiology Comment on above: Dizziness [R42] Start: 11-09-2022 Refill Ab kline MD Work Phone: [facility] Comment on above: Refill Request Start: 10-20-2022 [...] 06-29-[address] Magalys Mcclure Work Phone: [facility] Work Phone: Start: 06-29-2022 End: 06-29-[address] Magalys Mcclure Work Phone: [facility] Start: 06-11-2022 Refill Ab kline MD Work Phone: [facility] Comment on above: Refill Request Start: 05-12-2022 End: 05-12-[address] Magalys Mcclure Work Phone: [facility] Work Phone: Start: 05-12-2022 End: 05-12-[address] Magalys Mcclure Work Phone: [facility]-Outpatient Breast Imaging Start: 05-12-2022 End: 05-12-[address] Magalys Mcclure Work Phone: [facility] Start: 04-14-2022 End: 04-14-[address] Magalys Mcclure Work Phone: [facility] Work Phone: Start: 04-14-2022 End: 04-14-[address] Magalys Mcclure Work Phone: [facility] Start: 03-11-2022 End: 03-11-[address] Magalys Mcclure Work Phone: [facility] Work Phone: Start: 03-11-2022 End: 03-11-[address] Magalys Mcclure Work Phone: [facility]-Outpatient Bone Densitometry Start: 02-03-2022 End: 02-03-[address] Magalys Mcclure Work Phone: [facility] Start: 01-22-2022 Non-patient / Non-visit Dr. Beverly Mcclure Work Phone: [facility] Start: 01-22-2022 End: 01-22-2022 Admission to same day surgery center Dr. Magalys Mcclure Work Phone: [facility]-Surgical Day Care Start: 01-06-2022 End: 01-06-[address] Magalys Mcclure Work Phone: [facility] Start: 10-22-2021 Telephone encounter Ab Shaffer MD Work Phone: Neurology Comment on above: Results Start: 09-17-2021 Telephone encounter Ab Shaffer MD Work Phone: Neurology Comment on above: Carbamazapine level Procedures Date Procedure Procedure Detail Performing Clinician Start: 01-31-2025 Cardiovascular stress test using pharmacologic stress agent Dr. Magalys Mcclure MD Work Phone: Start: 11-20-2024 Vitamin D, 25-hydroxy measurement Dr. [...] Detail Author Start: 02-06-2029 Urine microalbumin profile [facility] Start: 02-21-2026 Diabetes Screening Diabetes Screening [facility] Start: 03-08-2025 End: 03-08-2025 Patient encounter procedure 03/08/2025 3:20 PM EDT Office Visit Neurology [address] [place] [address] Ab Shaffer Jr., MD [address] [place] [address] follow up Neurology Comment on above: follow up Start: 02-11-2025 Influenza [facility] Start: 08-31-2024 End: 08-31-2024 Patient encounter procedure 08/31/2024 2:00 PM EDT Office Visit Neurology [address] [place] [address] Ab Shaffer Jr., MD [address] [id number] follow up Neurology Comment on above: follow up Start: 2024 Advance Directive Discussion Advance Directive Discussion [facility] Start: 2024 Medicare Advantage Annual Wellness Visit Medicare Advantage Annual Wellness Visit [facility] Start: 05-31-2024 Patient referral [facility] Work Phone: Start: 03-02-2024 End: 03-02-2024 Patient encounter procedure 03/02/2024 3:20 PM EDT Office Visit Neurology [address] [facility] [place] [address] Ab Shaffer Jr., MD [address] [facility] [address] [place] [address] 7 month Follow up vertigo Neurology Comment on above: 7 month Follow up vertigo Start: 03-02-2024 End: 06-01-2024 carBAMazepine free [Mass/volume] in Serum or Plasma CARBAM/TEGRETOL, FREE Lab Routine Generalized convulsive epilepsy (HCC) Expected: 03/02/2024, Expires: 06/01/2024 [facility] Work Phone: Comment on above: Expected: 03/02/2024, Expires: Start: 02-12-2024 Covid-19 Vaccine ( season) Covid-19 Vaccine () [facility] Start: 02-12-2024 Covid-19 Vaccine () Covid-19 Vaccine () [facility] Start: 02-12-2024 Influenza vaccination [facility] Start: 2023 Advance Directive Discussion Advance Directive Discussion [facility] Start: 2023 Behavioral Health Screening Behavioral Health Screening [facility] Start: 2023 Depression Assessment Depression Assessment [facility] Start: 02-11-2023 Covid-19 Vaccine ( season) Covid-19 Vaccine () [facility] Start: 02-11-2023 Influenza vaccination [facility] Start: 12-29-2022 End: 02-28-2023 CBC panel - Blood by Automated count CBC Lab Routine Generalized convulsive epilepsy (HCC) Expected: 12/29/2022, Expires: 02/28/2023 [facility] Work Phone: Comment on above: Expected: 12/29/2022, Expires: 3 Start: 12-29-2022 End: 02-28-2023 Comprehensive metabolic 2000 panel - Serum or Plasma COMP METABOLIC PANEL Lab Routine Generalized convulsive epilepsy (HCC) Expected: 12/29/2022, Expires: 02/28/2023 [facility] Work Phone: Comment on above: Expected: 12/29/2022, Expires: 3 Start: 2022 ADVANCE DIRECTIVE DISCUSSION ADVANCE DIRECTIVE DISCUSSION [facility] Start: 2022 DEPRESSION ASSESSMENT DEPRESSION ASSESSMENT [facility] Start: 05-20-2022 COVID-19 VACCINE (6 - Booster for Moderna series) COVID-19 VACCINE (6 - Booster for Moderna series) [facility] Start: 05-20-2022 COVID-19 VACCINE (6 - Moderna series) COVID-19 VACCINE (6 - Moderna series) [facility] Start: 02-11-2022 Influenza vaccination INFLUENZA (#1) [facility] Start: 01-22-2022 Anes nerve muscle tdn fascia&bursa forearm wrist ANESTH LOWER ARM SURGERY [facility] Work Phone: Start: 01-22-2022 Neuroplasty &/transpos median nrv carpal tunne CARPAL TUNNEL SURGERY [facility] Work Phone: Start: 01-22-2022 Application of ice collar, cap or bag [facility] Work Phone: Start: 01-22-2022 Catheterization of vein [facility] Work Phone: Start: 01-22-2022 Elevation of affected extremity [facility] Work Phone: Start: 01-22-2022 Following clinical pathway protocol [facility] Work Phone: Start: 01-22-2022 Patient discharge [facility] Work Phone: Start: 01-22-2022 Procedure discontinued [facility] Work Phone: Start: 01-22-2022 Taking patient vital signs [facility] Work Phone: Start: 01-22-2022 Vital signs measurements [facility] Work Phone: Start: 01-22-2022 [facility] Work Phone: Start: 01-22-2022 Medication education [facility] Work Phone: Start: 11-28-2021 COVID-19 VACCINE (5 - Booster for Moderna series) COVID-19 VACCINE (5 - Booster for Moderna series) [facility] Start: 10-22-2021 End: 12-22-2021 CBC W Auto Differential panel - Blood CBC + DIFF Lab Routine Generalized convulsive epilepsy (HCC) Expected: 10/22/2021, Expires: 12/22/2021 [facility] Work Phone: Comment on above: Expected: 10/22/2021, Expires: 2 Start: 10-22-2021 End: 12-22-2021 Comprehensive metabolic 2000 panel - Serum or Plasma COMP METABOLIC PANEL Lab Routine Generalized convulsive epilepsy (HCC) Expected: 10/22/2021, Expires: 12/22/2021 [facility] Work Phone: Comment on above: Expected: 10/22/2021, Expires: 2 Start: 09-17-2021 End: 11-17-2021 carBAMazepine free [Mass/volume] in Serum or Plasma CARBAM/TEGRETOL F Lab Routine Generalized convulsive epilepsy (HCC) Expected: 09/17/2021, Expires: 11/17/2021 [facility] Work Phone: Comment on above: Expected: 09/17/2021, Expires: 2 Start: 2021 ADVANCE DIRECTIVE DISCUSSION ADVANCE DIRECTIVE DISCUSSION [facility] Start: 03-28-2021 DIABETES SCREEN DIABETES SCREEN [facility] Start: 03-31-2017 End: 03-31-2017 Mammogram, screening Mammogram, Screening, both breasts [facility] Start: 03-18-2017 End: 03-18-2017 Appointment Appointment [facility] Start: 2013 RSV Vaccine (1 - 1-dose 75+ series) RSV Vaccine (1 - 1-dose 75+ series) [facility] Start: 05-28-2013 SHINGRIX VACCINE (2 of 3) SHINGRIX VACCINE (2 of 3) [facility] Start: 1998 RSV Vaccine (1 - 1-dose 60+ series) RSV Vaccine (1 - 1-dose 60+ series) [facility] Start: 1956 Anxiety Screening Anxiety Screening [facility] Start: 1958 Depression Screening Depression Screening [facility] Cardiovascular funct ion eval w/tilt table w/mntr TILT TABLE EVALUATION Cardiology Routine Lightheadedness Ordered: 02/21/2023 [facility] Work Phone: Comment on above: Ordered: 02/21/2023 End: 03-22-2024 CTA HEAD WO/W IVCON CTA HEAD WO/W IVCON Radiology Routine Dizziness and giddiness Lightheadedness History of carotid stenosis 1 Occurrences starting 02/21/2023 until 03/22/2024 [facility] Work Phone: Comment on above: 1 Occurrences starting 02/21/2023 until 03/22/2024 End: 03-22-2024 CTA NECK W IVCON CTA NECK W IVCON Radiology Routine Dizziness and giddiness Lightheadedness History of carotid stenosis 1 Occurrences starting 02/21/2023 until 03/22/2024 [facility] Work Phone: Comment on above: 1 Occurrences starting 02/21/2023 until 03/22/2024 End: 02-22-2024 Echocardiography ECHO Cardiology Routine Dizziness and giddiness Lightheadedness 1 Occurrences starting 02/21/2023 until 02/22/2024 [facility] Work Phone: Comment on above: 1 Occurrences starting 02/21/2023 until 02/22/2024 HOME SLEEP APNEA NORMA T (HSAT) HOME SLEEP APNEA TEST (HSAT) Procedures Routine MELA (obstructive sleep apnea) 1 Occurrences starting 12/21/2024 [facility] Work Phone: Comment on above: 1 Occurrences starting 12/21/2024 End: 11-19-2023 Mri brain brain stem w/o w/contrast material MRI BRAIN WO/W IVCON Radiology Routine Dizziness Unsteadiness 1 Occurrences starting 10/20/2022 until 11/19/2023 [facility] Work Phone: Comment on above: 1 Occurrences starting 10/20/2022 until 11/19/2023 End: 11-19-2023 Mri spinal canal cervical w/o contrast matrl MRI CERVICAL SPINE WO IVCON Radiology Routine Dizziness Unsteadiness 1 Occurrences starting 10/20/2022 until 11/19/2023 [facility] Work Phone: Comment on above: 1 Occurrences starting 10/20/2022 until 11/19/2023 NM Heart Views W str ess and W radionuclide IV [facility] OUTSIDE VENDOR CARDI AC OUTPATIENT EXTENDED RHYTHM RECORDING (WITHOUT TELEMETRY) OUTSIDE VENDOR CARDIAC OUTPATIENT EXTENDED RHYTHM RECORDING (WITHOUT TELEMETRY) Holter Routine Lightheadedness Ordered: 02/21/2023 [facility] Work Phone: Comment on above: Ordered: 02/21/2023 Patient referral [facility] Work Phone: PT PLAN OF CARE CERTIFICATION PT PLAN OF CARE CERTIFICATION Procedures Routine Dizziness Unsteadiness Ordered: 12/01/2022 [facility] Comment on above: Ordered: 12/01/2022 [facility] VESTIBULAR TEST BATTERY VESTIBUL AR TEST BATTERY Audiology Routine Dizziness and giddiness Ordered: 02/21/2023 [facility] Work Phone: Comment on above: Ordered: 02/21/2023 [facility] Immunizations Immunization Date Immunization Notes Care Provider Vera castañeda 08-15-2023 influenza virus vacc ine, unspecified formulation Ab Shaffer Jr., MD Work Phone: [facility] 03-25-2022 influenza virus vacc ine, unspecified formulation Vicenta Chirinos PA-C Work Phone: [facility] 03-17-2021 influenza, injectabl e, quadrivalent, contains preservative Ab Shaffer Jr., MD Work Phone: [facility] 08-08-2020 COVID-19 vaccine, fu ll dose (MODERNA) Ab Shaffer Jr., MD Work Phone: [facility] 07-11-2020 COVID-19 vaccine, fu ll dose (MODERNA) Ab Shaffer Jr., MD Work Phone: [facility] 03-02-2020 influenza (aIIV4) vaccine, age 65+ yr, quadrivalent, PF (FLUAD QUADRIVALENT) Ab Shaffer Jr., MD Work Phone: [facility] 02-12-2020 pneumococcal polysaccharide vaccine, 23 valent Ab Shaffer Jr., MD Work Phone: [facility] 04-17-2019 influenza, high dose seasonal, preservative-free Ab Shaffer Jr., MD Work Phone: [facility] 02-06-2019 pneumococcal conjuga te vaccine, 13 valent Ab Shaffer Jr., MD Work Phone: [facility] 02-06-2019 tetanus toxoid, redu yo diphtheria toxoid, and acellular pertussis vaccine, adsorbed Ab Shaffer Jr., MD Work Phone: [facility] 03-19-2017 influenza, high dose seasonal, preservative-free Ab Shaffer Jr., MD Work Phone: [facility] Work Phone: 2016 influenza, injectabl e, quadrivalent, contains preservative Ab Shaffer Jr., MD Work Phone: [facility] 05-11-2016 influenza, high dose seasonal, preservative-free Ab Shaffer Jr., MD Work Phone: [facility] 09-22-2015 pneumococcal conjuga te vaccine, 13 valent Ab Shaffer Jr., MD Work Phone: [facility] 04-07-2015 influenza, high dose seasonal, preservative-free Ab Shaffer Jr., MD Work Phone: [facility] 08-21-2013 tetanus toxoid, redu yo diphtheria toxoid, and acellular pertussis vaccine, adsorbed Ab Shaffer Jr., MD Work Phone: [facility] 07-13-2013 influenza virus vacc ine, unspecified formulation Ab Shaffer Jr., MD Work Phone: [facility] Work Phone: 04-02-2013 zoster vaccine, live Ab Shaffer Jr., MD Work Phone: [facility] Work Phone: 03-23-2012 influenza virus vacc ine, whole virus Ab Shaffer Jr., MD Work Phone: [facility] Work Phone: 03-17-2010 influenza virus vacc ine, unspecified formulation Ab Shaffer Jr., MD Work Phone: [facility] 04-12-2006 influenza virus vacc ine, unspecified formulation Ab Shaffer Jr., MD Work Phone: [facility] 09-04-2004 pneumococcal polysaccharide vaccine, 23 valent Ab Shaffer Jr., MD Work Phone: [facility] Work Phone: 04-13-2003 influenza virus vacc ine, unspecified formulation Ab Shaffer Jr., MD Work Phone: [facility] Work Phone: 07-05-2002 diphtheria and tetan us toxoids, adsorbed for pediatric use Ab Shaffer Jr., MD Work Phone: [facility] Work Phone: Payers Date Payer Category Payer Self-pay [id number] 2017 Medicare (Managed Care) [employer] HMO [id number] 2017 Unknown ANTHEM BLUE CROS S AND BLUE SHIELD ANTHTIA MEDIBLUE O [id number] 2017-Present [phone] [address] [place] [address] [facility] [id number] 2017 Unknown [id number] 2017 Medicare [id number] 2014 Medicare [id number] 2014 Unknown [id number] 1940 Unknown [id number]. 2.627 Medicare [id number] Unknown [id number]. 2.462 Unknown [id number] 07.29.830.1.456099.3.579. 2.462 Unknown [id number] 2.16.840.1.568096.3.579. 2.462 Unknown [id number] 2.16.840.1.678077.3.579. 2.462 Unknown [id number] 2.16.840.1.158846.3.579. 2.462 Unknown [id number] 2.16.840.1.299769.3.579. 2.462 Unknown [id number] 2.16.840.1.631936.3.579. 2.462 Unknown [id number] 2.16.840.1.915902.3.579. 2.462 Unknown [id number] 2.16.840.1.570722.3.579. 2.462 Unknown [id number] 2.16.840.1.498647.3.579. 2.462 Unknown [id number] 2.16.840.1.894208.3.579. 2.462 Unknown [id number] 2.16.840.1.187964.3.579. 2.462 Unknown [id number] 2.16.840.1.574390.3.579. 2.462 Unknown [id number] 2.16.840.1.926335.3.579. 2.462 Unknown [id number] 2.16.840.1.992579.3.579. 2.462 Unknown [id number] 2.16840.1.999707.3.579. 2.462 Social History Date Type Detail Facility Start: 10-20-2022 End: 04-03-2024 Tobacco smoking status NHIS Never smoked tobacco [facility] Start: 06-26-2021 End: 03-02-2024 Alcohol intake Current non-drinker of alcohol (finding) [facility] Start: 1940 Sex Assigned At Not on file [facility] Start: 01-15-2022 End: 04-14-2023 Tobacco smoking status IDIS Unknown if ever smoked [facility] Start: 1940 Sex Assigned At Female [facility] Start: 10-20-2022 Tobacco use and exposure Smoke less tobacco non-user [facility] Start: 10-20-2022 End: 03-02-2024 History of Social function [facility] Start: 10-20-2022 End: 03-02-2024 Tobacco use panel [facility] Start: 05-14-2012 National Score (1-10 0), lower number is lower risk 43 [facility] Sexual Orientation [facility] Start: 10-18-2014 End: 08-28-2024 Sex Female (finding) [facility] Goals Date Patient Goal Desired Activity /State Functional Status Date Assessment Result Facility 12-12-2014 Are you deaf, or do you have serious difficulty hearing No 12/12/2014 4:18 PM EDMichelle Whitley Ma [facility] Work Phone: 12-12-2014 Are you blind, or do you have serious difficulty seeing, even when wearing glasses No 12/12/2014 4:18 PM Michelle Vale Ma [facility] 12-12-2014 Do you have serious difficulty walking or climbing stairs Yes 12/12/2014 4:18 PM Michelle Vale Ma Yes [facility] 12-12-2014 Do you have difficul ty dressing or bathing No 12/12/2014 4:18 PM Michelle Vale Ma No [facility] 12-12-2014 Because of a physica l, mental, or emotional condition, do you have difficulty doing errands alone such as visiting a physician's office or shopping Yes 12/12/2014 4:18 PM Michelle Vale Ma Yes [facility] Mental Status Date Assessment Result Facility 01-22-2022 Cognitive function Voice/Name [facility] Work Phone: 12-12-2014 Because of a physica l, mental, or emotional condition, do you have serious difficulty concentrating, remembering, or making decisions No 12/12/2014 4:18 PM Michelle Vale Ma [facility] Clinical Notes 07-06-2011 to 04-04-2025 Telephone Encounter - Simran King LPN - 01/25/2025 4:01 PM EDTTelephone Encounter - Simran King SAYRA - 01/25/2025 4:01 PM EDT Note Date & Type Note Facility 04-04-2025 Note HNO ID: [id number] Author: ?, ?, ? Service: ? Author Type: ? Type: Progress Notes Filed: 04/04/2025 10:59 Note Text: Sleep Study Check-In Documentation Date: April 04, 2025 Name: Katrina Mancini Comments: HST was returned in working order without all sleep questionnaires Patient was not reached. A voicemail was left with patient to call back to complete questionnaires. Leila Quiroga [facility] 04-02-2025 Note HNO ID: [id number] Author: ?, ?, ? Service: ? Author Type: ? Type: Progress Notes Filed: 04/04/2025 10:59 Note Text: Patient called and had questions concerning HSAT use stated she sleeps with a mouth piece that is in alexander of a c-pap, per manager pulmonary advice, she was told to sleep with both if it was instructed by provider not to. [facility] 04-01-2025 Note HNO ID: [id number] Author: ?, ?, ? Service: ? Author Type: ? Type: Progress Notes Filed: 04/04/2025 10:59 Note Text: Nomad # [id number] , date shipped out 04-01-25 Fed ex only Tracking mailout: [phone] [id number] Tracking return: [id number] [facility] 03-20-2025 Note HNO ID: [id number] Author: ?, ?, ? Service: ? Author Type: ? Type: Progress Notes Filed: 04/04/2025 10:59 Note Text: adoc [facility] 03-08-2025 Note HNO ID: [id number] Author: AB SHAFFER JR, MD Service: ? Author Type: Physician Type: Progress Notes Filed: 03/08/2025 18:13 Note Text: ESTABLISHED PATIENT VISIT CHIEF COMPLAINT: Follow up HISTORY OF PRESENT ILLNESS: Katrina Mancini is a 84 year old female, BMI 23.33 kg/m2 with a PMH significant for and per last office visit note of 03/02/24: 1. 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 Reported hyponatremia during interim but thought to be due to antidepressant she was started on. Since, the antidepressant has been d/c'd. Scheduled for labs soon through PCP. For now will continue Carbamazepine as previously Rx'd. [...] Dizziness - ICD9: 780.4, ICD10: R42 Resolved. Pt did have fall in 05/2024 - looking down to smell a jevon bud. Reports gets a lightheaded sensation. No full positional change. Similar to what pt had before but resolved over time. Currently scheduled to see vestibular therapy. Not daily. No time of day worse than others. States more trouble walking in the AM but feels due to hips and lower back pain that is chronic. PCP did order a sleep study -- more specifically a noc pulse ox - 6.9% of recorded with O2 <90%. Note current oral appliance is solid. Pt states would not want PAP. Discussed limitations of nocturnal oximetry. Pt cannot leave home at night due to . Ok with HSAT. Headaches still not present - eliminated since on Verapamil ER 240mg daily. No seizures since last visit. No Tegretol level for past year - question if levels possibly increased and contributing to dizzy sensations. Patient reports just had aortic ultrasound and cardiac stress test and all normal. REVIEW OF SYSTEMS GENERAL:No weight loss, malaise [...] ALT (U/L) Date Value 02/21/2023 17 MEDICATIONS: gabapentin (NEURONTIN) 100 mg capsule Take 100 mg by mouth three times a day. aspirin, enteric coated (ASPIRIN, ENTERIC COATED) 81 mg EC tablet Take 81 mg by mouth once daily. verapamil SR (CALAN SR) 240 mg CR tablet TAKE 1 TABLET BY MOUTH EVERY DAY carBAMazepine (TEGRETOL) 200 mg tablet TAKE 1/2 TABLET BY MOUTH IN THE MORNING AND 1 AND 1/2 TABLETS IN THE EVENING Clobetasol Propionate 0.05 % gel Apply to affected area. omeprazole (PRILOSEC) 20 mg capsule rosuvastatin (CRESTOR) 10 mg table (more content not included)... [facility] 03-08-2025 Note HNO ID: [id number] Author: RAYNA MORILLO LPN Service: ? Author Type: Licensed Nurse Type: Progress Notes Filed: 03/08/2025 18:13 Note Text: [facility] 01-25-2025 Telephone encount er Note Prescription Refill [...] King LPN January 25, 2025 4:01 PM [facility] 01-25-2025 Miscellaneous Notes Formattin g of [...] 2025 4:01 PM documented in this encounter [facility] 01-02-2025 Evaluation note Diagnosis Onset Date Resolution Atherosclerotic vascular disease chronic January 02, 2025 12:49pm 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 January 02, 2025 12:49pm Dyslipidemia chronic January 02, 025 12:49pm Epilepsy chronic January 02 12:49pm Hypertension chronic January 02 025 12:49pm Interscapular pain chronic December 122024 12:49pm Migraine chronic January 02 12:49pm Supraventricular tachycardia chronic January 02, 2025 12:49pm Vestibular disorder September, chronic January 02, 2025 12:49pm [facility] Work Phone: [phone]) 231-262407-23-2025 Progress [facility] [address] [place] [address]. [address] [place] [address] OFFICE VISIT Date of Service: 01/02/25 MR#: [id number] Acct: [id number] Name: KATRINA MANCINI Rep #: [id number] : 1940 Provider: Dr. Shlomo Forrest MD Age/Sex: 84/F Location: [facility] Status: Signed HPI HPI History of Present [...] air Intake Visit Reasons: 6 M FU Editing Intern Required: No Accompanied by: Self Is patient [...] you fallen in the past year?: Yes [facility] Medical History (Updated 01/02/25 @ 13:17 by [...] 1318 > Date _ Samir Forrest MD Cosigner Signature: Date (if applicable) CC: ~ [facility]07-23-2025 Progress note Author Samir Forrest [facility] Note Date/Time January 02, 2025 1:17 pm [facility] [address] [place] [address]. [address] [place] [address] OFFICE VISIT Date of Service: 01/02/25 MR#: [id number] Acct: [id number] Name: KATRINA MANCINI Rep #: [id number] : 1940 Provider: Dr. Shlomo Forrest MD Age/Sex: 84/F Location: [facility] Status: Signed HPI HPI History of Present [...] air Intake Visit Reasons: 6 M FU Editing Intern Required: No Accompanied by: Self Is patient [...] you fallen in the past year?: Yes [facility] Medical History (Updated 01/02/25 @ 13:17 by [...] Cosigner Signature: Date (if applicable) CC: ~ [facility] Work Phone: [phone] Telephone encounter Note* Telephone Encounter - Gina Jernigan LPN - 12/24/2024 4:45 PM EDT Faxed request to Dr Mcclure's office. Gina Jernigan LPN [facility]07-14-2025 Miscellaneous Notes* Telephone Encounter - Gina Jernigan LPN - 12/24/2024 4:45 PM EDT Faxed request to Dr Mcclure's office. Gina Jernigan LPN * Telephone Encounter - Ab Shaffer Jr., MD - 12/24/2024 4:37 PM EDT Will refill now but needs updated CMP and CBC. Please see if PCP office has these from late 2023 [id number]. If not, I can place order. Last [...] 24, 2024 4:30 PM documented in this encounterMari[facility]07-14-2025 Telephone encounter Note * Telephone Encounter - Ab Shaffer Jr., MD - 12/24/2024 4:37 PM EDT Will refill now but needs updated CMP and CBC. Please see if PCP office has these from late 2023 [id number]. If not, I can place order. Last Carbamazepine level from late 2023. Ab Shaffer MD [facility]07-14-2025 Telephone encounter Note* Telephone Encounter - [...] King LPN December 24, 2024 4:30 PM [facility]07-11-2025 Telephone encounter Note* Telephone Encounter - [...] no s/s of MELA. Ab Shaffer MD [facility]07-11-2025 Miscellaneous Notes* Telephone Encounter - Ab [...] apnea is not controlled. Forward to Dr. Novac. Simran King LPN * Telephone Encounter - [...] that it is done. documented in this encounterMari[facility]07-10-2025 Telephone encounter Note * Telephone Encounter - Simran King LPN - 12/20/2024 2:16 PM EDT Records have been received and scanned into Pt chart under sleep study. Pt Sleep apnea is not controlled. Forward to Dr. Mccarthy. Simran King LPN [facility]07-09-2025 Telephone encounter Note* Telephone Encounter - Melissa Martinez LPN - 12/19/2024 3:59 PM EDT Patient calling Dr Mcclure did an overnight pulse ox test on her and she said her sleep apnea is not controlled. Advised to have Dr office fax copy of the results to Dr Deena villatoro. Patient is calling office back to ask that it is done. [facility]01-07-2025 Telephone encounter Note* Telephone Encounter - [...] Martinez LPN June 19, 2024 10:33 AM [facility]01-07-2025 Miscellaneous Notes* Telephone Encounter - Melissa [...] 19, 2024 10:33 AM documented in this encounterMarietta [facility] Hospital12-12-2024 Evaluation note* Diagnosis Onset Date Resolution [...] region with neurogenic claudication acute May 31, 024 1:24pm Spondylolisthesis, lumbar region acute May 31, 024 1:24pm Bilateral lower extremity edema chronic July 10 1:22pm Diastolic dysfunction withou t heart failure chronic July 10 1:22pm Epilepsy chronic July 10, 2024 1:22pm Fatigue chronic July 10, 2024 1:22pm Hypertension chronic June 1:22pm Migraine chronic July 10, 2024 1:22pm Supraventricular tachycardia chronic July 10, 2024 1:22pm Vestibular disorder September, chronic Marek charlie 2024 1:22pm [facility] Work Phone: [phone]) 236-518909-20-2024 History of Present illness Narrative* Ab Shaffer [...] Wt 58.6 kg (129 lb 3.2 oz) [id number]% BMI 22.53 kg/m GENERAL EXAM: General appearance: [...] Level: 4 - Moderate documented in this encounterMari[facility]09-09-2024 Telephone encounter Note * Telephone Encounter [...] office visit with this provider/department: Yes 03/02/24 WMilvia Requested Prescriptions Pending Prescriptions Disp Refills carBAMazepine [...] Baugh LPN February 20, 2024 8:45 AM [facility]09-09-2024 Miscellaneous Notes* Telephone Encounter - Marcella [...] 20, 2024 8:45 AM documented in this encounterMarietta [facility]05-07-2024 Telephone encounter Note * Telephone Encounter - Marcella Baugh LPN - 10/18/2023 11:37 AM EDT CHARLES 08/01/23 with WFredyN NOV 03/02/24 with WJN Refill 04/20/23 with qty: 90 and 1 refills Marcella Baugh LPN [facility] Assessment/Plan ASSESSMENT/PLAN: 1. Dizziness - ICD9: [...] Sooner follow up prn. Ab Shaffer MD [facility]05-07-2024 Miscellaneous Notes* Telephone Encounter - Marcella Baugh LPN - 10/18/2023 11:37 AM EDT CHARLES 08/01/23 with WJN NOV 03/02/24 with WJN Refill 04/20/23 with qty: 90 and 1 refills SAYRA Lorenzo Assessment/Plan ASSESSMENT/PLAN: 1. Dizziness - ICD9: 780.4, [...] Tegretol levels. Sooner follow up prn. Ab Shfafer MD documented in this encounterMarietta [facility] Hospital02-19-2024 Instructions* Patient Instructions* Ab Shaffer Jr., MD - 08/01/2023 4:42 PM EST 1) Please contact us with your next Na level (phone or mychart). documented in this encounterMarietta [facility] Hospital02-19-2024 History of Present illness Narrative* Ab [...] a peripheral etiology (L vestibular system) but [place] English exam performed today (not noted above) unremarkable. [...] symptoms once per month. Pt did see [facility] for SVT and stated on [...] congestion absent, no oral lesions, membranes moist. [place] English exam unremarkable. Lungs: CTA bilaterally. CV: RRR [...] which included preparing to see the patient, [id number] patient care, completing clinical documentation, obtaining and/or reviewing separately obtained history, performing a medically appropriate examination, counseling and educating the pa tient/family/caregiver, ordering medications, tests, or procedures, and communicating results to the patient/family/caregiver. * Ab Shaffer Jr., MD - 08/01/2023 4:00 PM EST documented in this encounterMarietta [facility] Hospital02-12-2024 Miscellaneous Notes* Telephone Encounter - Marcella [...] a peripheral etiology (L vestibular system) but [place] English exam performed today (not noted above) unremarkable. [...] you. Raquel Devries LPN. documented in this encounterMarietta [facility] Hospital12-14-2023 Procedure [facility]11-17-2023 History of Present illness Narrative* Marcella Pedro, [...] 04/29/2023 and treatment included: Neuromuscular re-education and Self-usp management. Goals for Episode of Care: created [...] 1200 Session Stop Time : 1225 Marcella Pedro, PT documented in this encounterMarietta [facility] Hospital11-08-2023 Miscellaneous Notes* Telephone Encounter - Marcella Baugh LPN - 04/20/2023 10:45 AM EST CHARLES 02/21/23 with WJN NOV 07/01/23 with WJN Refill 11/11/22 with qty: 90 and 1 refills Marcella Baugh LPN [facility] Assessment/Plan 1. Dizziness and giddiness - ICD9: [...] a peripheral etiology (L vestibular system) but [place] English exam performed today (not noted above) unremarkable. [...] evaluation. Ab Shaffer MD documented in this encounterMarietta [facility] Hospital10-27-2023 History of Present illness Narrative* Marcella [...] 1028 Marcella Pedro PT documented in this encounterMarietta [facility] Hospital10-23-2023 Miscellaneous Notes* Telephone Encounter - Marcella Baugh LPN - 04/04/2023 1:01 PM EDT Fax received from [facility] requesting last office note from Dr. Shaffer. Office note dated 02/21/23 faxed to [phone]. Marcella Baugh LPN documented in this encounterMarietta Memorial Hospital10-23-2023 Miscellaneous Notes* Telephone Encounter - Dian Devries LPN - 04/04/2023 8:49 AM EDT Phone call placed patient advised (see prior provider encounter) Patient verbalized understanding, agreed with plan of care, reported current Italian Teacher Dr Mata,last OV 01/2023, results ( 11 pages) faxed to [phone]. Dian Devries LPN * Telephone Encounter - [...] patientresponds. Ab Shaffer MD documented in this encounterMarietta Memorial Hospital10-18-2023 History of Present illness Narrative* Marcella [...] Planned: 6 Planned Treatment Interventions: Therapeutic exercise (96932), Neuromuscular re- education (63672), Manual therapy (25400), Therapeutic activities (22407), Self- usp management (64481), Gait Training (54268) PLAN FOR NEXT VISIT: FGA as tolerated, [...] 1115 Session Stop Time : 1200 Marcella Pedro PT documented in this encounterMarietta Memorial Hospital10-06-2023 History of Present illness Narrative* Sharonda Duran, PhD - 03/18/2023 12:30 PM EDT Head [facility] Ne[facility] [place] [facility] Vestibular Test Battery Report Name: Katrina Mancini CC#: [id number] Date of Service: 03/18/2023 Date of : [...] vertical, oblique): normal Cover uncover test: normal Xqgra-ubpqg-nyvod test: normal NECK: Cervical rotation right restrictions: [...] VESTIBULAR MEASURES: Videonystagmography Examination (VNG): CPT codes: 94386, 16099, 58833 Description of Procedure: objective assessment of peripheral [...] Vertical Semi-circular Canal BPPV Nystagmus tests: Nystagmus Gates-Hallpike right ear down position: none. Temporal profile: n/a. Symptoms: dizziness. Nystagmus Armando-Hallpike right ear return to sit position: none. Temporal profile: n/a. Symptoms: dizziness. Nystagmus Armando-Hallpike left ear down position: none. Temporal profile: [...] Video Head Impulse Test (VHIT): CPT code: 64235 Description of Procedure: assessment of the angular [...] gain < 0.70) Rotational Chair: CPT code 24347 Description of Procedure: objective assessment of peripheral [...] regarding this information, please contact me at [phone]. Tiffanie Whitman BA (Alex) Doctor of Audiology (AuD) Manufacturing Storeperson This appointment was conducted under the direct supervision of Sharonda Duran, PhD CCC-A I verify that I have reviewed the history, test results, and interpretation for this patient. Sharonda Duran, PhD CCC-A copy to: Ab Shaffer Jr., MD documented in this encounterCleveland Luvehc06-07-2205 Miscellaneous Notes* Telephone Encounter - Ab Shaffer [...] voicemail to return call. documented in this encounterMarietta [facility] Hospital09-21-2023 History of Present illness Narrative* Reef Jonelle Mcnamara, RT(R) - 03/03/2023 1:00 PM EDT Radiology [...] Corrected Disregard results. Specimen incorrectly identified. Comment: [id number] SILVIA Account Credited Corrected on 10/31 AT 5287: Previously reported as 1.61 Estimated Glomerular Filtration [...] Corrected Disregard results. Specimen incorrectly identified. Comment: [id number] SILVIA Account Credited Corrected on 10/31 AT 1734: Previously reported as 37 P.O.C.T. RESULTS: POC done: Yes, See Lab Tab March 03, 2023 TREATMENT: N/A PERIPHERAL IV DATA: Ambulatory: A peripheral IV was started in the Left antecubital site with a Angio cath: 18 gauge. RADIOLOGY DEPARTMENT: CT; Exam(s) Completed: Brain , CTA Brain , and CTA Neck SIGNATURE: RT Ketty(R) PATIENT NAME: Katrina Mancini DATE: March 03, 2023 TIME: 2:26 PM documented in this encounterMarietta Memorial Hospital09-12-2023 Miscellaneous Notes* Telephone Encounter - Marcella Baugh LPN - 02/22/2023 12:46 PM EDT TC to pt who voiced understanding of below. Pt states she will see PCP next month. Lab results faxed to PCP, per request. Marclela Baugh LPN * Telephone Encounter - Vicenta Chirinos PA-C - 02/22/2023 12:36 PM EDT Patient's sodium is low. Tegretol can lower sodium levels, but will have her follow with PCP for further monitoring and evaluation. documented in this encounterM[facility]23 Miscellaneous Notes* Telephone Encounter - Erin Mora OCCA - 02/21/2023 12:13 PM EDT Zio monitor order, patients demographics and face sheet faxed to [phone] as instructed. JESUS Posadas documented in this encounterMarietta [facility]09-11-2023 History of Present illness Narrative* Ab [...] and holding things. Patient has not seen [facility] in some time, does not want further [...] which included preparing to see the patient, [id number] patient care, completing clinical documentation, obtaining and/or reviewing separately obtained history, performing a medically appropriate examination, counseling and educating the pat ient/family/caregiver, ordering medications, tests, or procedures, independently interpreting results (not separately reported), and communicating results to the patient/family/caregiver. documented in this encounterMarietta [facility]08-02-2023 Miscellaneous Notes* Telephone Encounter - Abel Medina RN - 01/12/2023 11:19 AM EDT Faxed MRI brain/cervical spine results from 11/29/[address] Beavers per Fabi request. Faxed results to [phone]. documented in this encounterMarietta [facility] Hospital07-19-2023 Miscellaneous Notes* Addendum Note - Vicenta [...] and holding things. Patient has not seen [facility] in some time, does not want further work-up at this time. Patient and agreeable to treatment plan of care at this time, all questions were answered. Discussed concerning signs and symptoms that would warrant evaluation emergency department, patient agrees and understands. Patient to follow-up in 2 months or sooner should any symptoms change or worsen. Vicenta Chirinos PA-C documented in this encounterMarietta [facility]07-07-2023 History of Present illness Narrative* Marcella [...] Major limitation (feels tighter) Lumbar R Side [place]: Produces Lumbar L Side [place]: Moderate limitation Lumbar R Side-[place]: Produces, Major [...] attempts 5: FGA test without AD score Skilled Intervention: Skilled judgment used to assess [...] 40 Marcella Pedro PT documented in this encounterMarietta [facility]06-21-2023 History of Present illness Narrative* Marcella [...] 6 Planned Treatment Interventions: Canalith Repositioning Maneuvers (08838), Gait Training (06893), Self-usp management (97812), Therapeutic activities (82444), Manual therapy (06756), Neuromuscular re-education (11135), Therapeutic exercise (57029) PLAN FOR NEXT VISIT: FGA balance testing, [...] 40 Marcella Pedro PT documented in this encounterMarietta [facility]06-20-2023 Miscellaneous Notes* Telephone Encounter - Marcella Baugh LPN - 11/30/2022 12:57 PM EDT TC to pt with results. Pt will call general neurology number to make follow up appointment with [facility]. Marcella Baugh LPN * Telephone Encounter - [...] evaluation. Consulthas been placed. documented in this encounterMarietta [facility]06-19-2023 History of Present illness Narrative* Rebeca [...] Cervical spine SIGNATURE: RT Sander(R) PATIENT NAME: Katrina Mancini DATE: November 29, 2022 TIME: 1:51 PM documented in this encounterMarietta [facility]06-01-2023 Miscellaneous Notes* Telephone Encounter - Marcella [...] patient. Casandra Major LPN documented in this encounterMarietta [facility] Hospital05-10-2023 Instructions* Patient Instructions* Vicenta Chirinos PA-C - 10/20/2022 4:19 PM EDT Continue medication regimen MRI of the brain and neck Vestibular therapy Follow up in 2 months documented in this encounterMarietta [facility] Hospital05-10-2023 History of Present illness Narrative* Vcienta Chirinos PA-C - 10/20/2022 3:41 PM EDT [...] comprehension, naming, repetition intact. Short and terminal computer operator memory intact. CN: PERRL, EOMI patient with [...] and holding things. Patient has not seen [facility] in some time, does not want [...] which included preparing to see the patient, [id number] patient care, completing clinical documentation, obtaining and/or reviewing separately obtained history, performing a medically appropriate examination, counseling and educating the pat ient/family/caregiver, and ordering medications, tests, or procedures. This document has been created with the use of voice recognition technology. It may contain inaccuracies: (e.g. misspellings, inaccurate syntax or word sense) that have escaped review. documented in this encounterMarietta [facility] Hospital04-10-2023 Miscellaneous Notes* Telephone Encounter - Marcella [...] year. Ab Shaffer MD documented in this encounterMarietta [facility] Hospital02-20-2023 Miscellaneous Notes* Telephone Encounter - Michelle [...] oz) Michelle Nowak RN documented in this encounterMarietta [facility]05-12-2022 Miscellaneous Notes* Telephone Encounter - Felisha [...] Thank you, Sugey Julien documented in this encounterMarietta [facility] Hospital04-07-2022 Miscellaneous Notes* Telephone Encounter - Virginie [...] patient. Virginie Salcido LPN documented in this encounterMarietta [facility] Hospital01-24-2012 History of Past illness Narrative* Problem Noted Date Resolved Date Postmenopausal bleeding 07/06/2011 03/14/20 12 Urgency of urination 05/12/2009 05/29/2010 SOMNOLENCE 01/03/2006 03/17/2016 HYPERLIPIDEMIA NEC/NOS 02/02/2005 6 documented as of this encounter (statuses as of 09/17/2021) [facility] Narrative* Problem Noted Date Resolved Date Postmenopausal bleeding 07/06/2011 03/14/20 12 Urgency of urination 05/12/2009 05/29/2010 SOMNOLENCE 01/03/2006 03/17/2016 HYPERLIPIDEMIA NEC/NOS 02/02/2005 6 documented as of this encounter (statuses as of 10/22/2021) [facility] Narrative* Problem Noted Date Resolved Date Postmenopausal bleeding 07/06/2011 03/14/20 12 Urgency of urination 05/12/2009 05/29/2010 SOMNOLENCE 01/03/2006 03/17/2016 HYPERLIPIDEMIA NEC/NOS 02/02/2005 6 documented as of this encounter (statuses as of 06/17/2022) [facility] Narrative* Problem Noted Date Resolved Date Postmenopausal bleeding 07/06/2011 03/14/20 12 Urgency of urination 05/12/2009 05/29/2010 SOMNOLENCE 01/03/2006 03/17/2016 HYPERLIPIDEMIA NEC/NOS 02/02/2005 6 documented as of this encounter (statuses as of 08/03/2022) [facility] Narrative* Problem Noted Date Resolved Date Postmenopausal bleeding 07/06/2011 03/14/20 12 Urgency of urination 05/12/2009 05/29/2010 SOMNOLENCE 01/03/2006 03/17/2016 HYPERLIPIDEMIA NEC/NOS 02/02/2005 6 documented as of this encounter (statuses as of 09/20/2022) [facility] Narrative* Problem Noted Date Resolved Date Postmenopausal bleeding 07/06/2011 03/14/20 12 Urgency of urination 05/12/2009 05/29/2010 SOMNOLENCE 01/03/2006 03/17/2016 HYPERLIPIDEMIA NEC/NOS 02/02/2005 6 documented as of this encounter (statuses as of 10/21/2022) [facility] Narrative* Problem Noted Date Resolved Date Postmenopausal bleeding 07/06/2011 03/14/20 12 Urgency of urination 05/12/2009 05/29/2010 SOMNOLENCE 01/03/2006 03/17/2016 HYPERLIPIDEMIA NEC/NOS 02/02/2005 6 documented as of this encounter (statuses as of 11/11/2022) [facility] Narrative* Problem Noted Date Resolved Date Postmenopausal bleeding 07/06/2011 03/14/20 12 Urgency of urination 05/12/2009 05/29/2010 SOMNOLENCE 01/03/2006 03/17/2016 HYPERLIPIDEMIA NEC/NOS 02/02/2005 6 documented as of this encounter (statuses as of 11/30/2022) [address]24-2012 History of Past illness Narrative* Problem Noted Date Resolved Date Postmenopausal bleeding 07/06/2011 03/14/20 12 Urgency of urination 05/12/2009 05/29/2010 SOMNOLENCE 01/03/2006 03/17/2016 HYPERLIPIDEMIA NEC/NOS 02/02/2005 6 documented as of this encounter (statuses as of 12/01/2022) [facility] Narrative* Problem Noted Date Resolved Date Postmenopausal bleeding 07/06/2011 03/14/20 12 Urgency of urination 05/12/2009 05/29/2010 SOMNOLENCE 01/03/2006 03/17/2016 HYPERLIPIDEMIA NEC/NOS 02/02/2005 6 documented as of this encounter (statuses as of 12/17/2022) [address]24-2012 History of Past illness Narrative* Problem Noted Date Diagnosed Date Resolved Date Postmenopausal bleeding 07/06/201107/2011 Urgency of urination 05/12/2009 010 SOMNOLENCE 01/03/2006 03/17/2016 HYPERLIPIDEMIA NEC/NOS 02/02/200508/25 documented as of this encounter (statuses as of 12/29/2022) [facility] Narrative* Problem Noted Date Diagnosed Date Resolved Date Postmenopausal bleeding 07/06/201107/2011 Urgency of urination 05/12/2009 010 SOMNOLENCE 01/03/2006 03/17/2016 HYPERLIPIDEMIA NEC/NOS 02/02/200508/25 documented as of this encounter (statuses as of 01/12/2023) [facility] Narrative* Problem Noted Date Diagnosed Date Resolved Date Postmenopausal bleeding 07/06/201107/2011 Urgency of urination 05/12/2009 010 SOMNOLENCE 01/03/2006 03/17/2016 HYPERLIPIDEMIA NEC/NOS 02/02/200508/25 documented as of this encounter (statuses as of 02/21/2023) [facility] Narrative* Problem Noted Date Diagnosed Date Resolved Date Postmenopausal bleeding 07/06/201107/2011 Urgency of urination 05/12/2009 010 SOMNOLENCE 01/03/2006 03/17/2016 HYPERLIPIDEMIA NEC/NOS 02/02/200508/25 documented as of this encounter (statuses as of 02/22/2023) [facility] Narrative* Problem Noted Date Diagnosed Date Resolved Date Postmenopausal bleeding 07/06/201107/2011 Urgency of urination 05/12/2009 010 SOMNOLENCE 01/03/2006 03/17/2016 HYPERLIPIDEMIA NEC/NOS 02/02/200508/25 documented as of this encounter (statuses as of 02/22/2023) [facility] Narrative* Problem Noted Date Diagnosed Date Resolved Date Postmenopausal bleeding 07/06/201107/2011 Urgency of urination 05/12/2009 010 SOMNOLENCE 01/03/2006 03/17/2016 HYPERLIPIDEMIA NEC/NOS 02/02/200508/25 documented as of this encounter (statuses as of 03/12/2023) [facility] Narrative* Problem Noted Date Diagnosed Date Resolved Date Postmenopausal bleeding 07/06/201107/2011 Urgency of urination 05/12/2009 010 SOMNOLENCE 01/03/2006 03/17/2016 HYPERLIPIDEMIA NEC/NOS 02/02/200508/25 documented as of this encounter (statuses as of 03/19/2023) [address]24-2012 History of Past illness Narrative* Problem Noted Date Diagnosed Date Resolved Date Postmenopausal bleeding 07/06/201107/2011 Urgency of urination 05/12/2009 010 SOMNOLENCE 01/03/2006 03/17/2016 HYPERLIPIDEMIA NEC/NOS 02/02/200508/25 documented as of this encounter (statuses as of 03/30/2023) [facility] Narrative* Problem Noted Date Diagnosed Date Resolved Date Postmenopausal bleeding 07/06/201107/2011 Urgency of urination 05/12/2009 010 SOMNOLENCE 01/03/2006 03/17/2016 HYPERLIPIDEMIA NEC/NOS 02/02/200508/25 documented as of this encounter (statuses as of 04/04/2023) [address]24-2012 History of Past illness Narrative* Problem Noted Date Diagnosed Date Resolved Date Postmenopausal bleeding 07/06/201107/2011 Urgency of urination 05/12/2009 010 SOMNOLENCE 01/03/2006 03/17/2016 HYPERLIPIDEMIA NEC/NOS 02/02/200508/25 documented as of this encounter (statuses as of 04/08/2023) [facility] Narrative* Problem Noted Date Diagnosed Date Resolved Date Postmenopausal bleeding 07/06/201107/2011 Urgency of urination 05/12/2009 010 SOMNOLENCE 01/03/2006 03/17/2016 HYPERLIPIDEMIA NEC/NOS 02/02/200508/25 documented as of this encounter (statuses as of 04/15/2023) [facility] Narrative* Problem Noted Date Diagnosed Date Resolved Date Postmenopausal bleeding 07/06/201107/2011 Urgency of urination 05/12/2009 010 SOMNOLENCE 01/03/2006 03/17/2016 HYPERLIPIDEMIA NEC/NOS 02/02/200508/25 documented as of this encounter (statuses as of 04/15/2023) [facility] Narrative* Problem Noted Date Diagnosed Date Resolved Date Postmenopausal bleeding 07/06/201107/2011 Urgency of urination 05/12/2009 010 SOMNOLENCE 01/03/2006 03/17/2016 HYPERLIPIDEMIA NEC/NOS 02/02/200508/25 documented as of this encounter (statuses as of 04/15/2023) [facility] Narrative* Problem Noted Date Diagnosed Date Resolved Date Postmenopausal bleeding 07/06/201107/2011 Urgency of urination 05/12/2009 010 SOMNOLENCE 01/03/2006 03/17/2016 HYPERLIPIDEMIA NEC/NOS 02/02/200508/25 documented as of this encounter (statuses as of 04/21/2023) [facility] Narrative* Problem Noted Date Diagnosed Date Resolved Date Postmenopausal bleeding 07/06/201107/2011 Urgency of urination 05/12/2009 010 SOMNOLENCE 01/03/2006 03/17/2016 HYPERLIPIDEMIA NEC/NOS 02/02/200508/25 documented as of this encounter (statuses as of 04/29/2023) [facility] Narrative* Problem Noted Date Diagnosed Date Resolved Date Postmenopausal bleeding 07/06/201107/2011 Urgency of urination 05/12/2009 010 SOMNOLENCE 01/03/2006 03/17/2016 HYPERLIPIDEMIA NEC/NOS 02/02/200508/25 documented as of this encounter (statuses as of 07/26/2023) [facility] Narrative* Problem Noted Date Diagnosed Date Resolved Date Postmenopausal bleeding 07/06/201107/2011 Urgency of urination 05/12/2009 010 SOMNOLENCE 01/03/2006 03/17/2016 HYPERLIPIDEMIA NEC/NOS 02/02/200508/25 documented as of this encounter (statuses as of 08/01/2023) [facility] No data available for this section 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 [facility] encounter [facility] Diagnosis Generalized convulsive epilepsy (HCC)- Primary [...] Carpal tunnel [facility] Cervical stenosis of spinal canal- Primary Spinal stenosis in cervical region [facility] Diagnosis Unsteadiness- Primary Abnormality of gait Dizziness Dizziness and giddiness [facility]* Diagnosis Dizziness- Primary Dizziness and giddiness Unsteadiness Abnormality of gait [facility] Diagnosis Generalized convulsive epilepsy (HCC) Generalized convulsive epilepsy without mention of intractable epilepsy [facility] Diagnosis Dizziness and giddiness- Primary [...] of circulatory system [facility]* Diagnosis Dizziness- Primary Dizziness and giddiness Vestibular dysfunction, right Lightheaded Dizziness and giddiness Lightheadedness Dizziness and giddiness documented in this encounter [facility]* Diagnosis Dizziness and giddiness- Primary Lightheaded Dizziness and giddiness Lightheadedness Dizziness and giddiness [facility] Diagnosis Onset Date Resolution Status Climacteric acute Postmenopausal bleeding [facility] Work Phone: Evaluation note* Diagnosis Dizziness and giddiness- Primary Lightheaded Dizziness and giddiness Lightheadedness Dizziness and giddiness [facility]* Diagnosis Dizziness Dizziness and giddiness Unsteadiness Abnormality of gait Lightheaded Dizziness and giddiness Lightheadedness Dizziness and giddiness [facility]* Diagnosis Dizziness Dizziness and giddiness Unsteadiness Abnormality of gait Lightheaded Dizziness and giddiness Lightheadedness Dizziness and giddiness documented in this encounter [facility]* Diagnosis Dizziness and giddiness Lightheadedness Dizziness and giddiness History of carotid stenosis Personal history of other diseases of circulatory system Lightheaded Dizziness and giddiness Lightheadedness Dizziness and giddiness documented in this encounter [facility]* Diagnosis Onset Date Resolution Status 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 Epilepsy chronic Hypertension chronic Migraine chronic Supraventricular tachycardia chronic Unsteadiness chronic Vestibular disorder [facility] Work Phone: Evaluation note* Diagnosis Dizziness and giddiness- Primary documented in this encounter [facility]* Diagnosis Generalized convulsive epilepsy (HCC) Generalized convulsive epilepsy without mention of intractable epilepsy documented [facility] this encounter [facility]* Diagnosis Dizziness- Primary Dizziness and giddiness Generalized convulsive epilepsy (HCC) Generalized convulsive epilepsy without mention of intractable epilepsy MELA (obstructive sleep apnea) Obstructive sleep apnea (adult) (pediatric) Migraine without aura and without status migrainosus, not intractable Migraine without aura, without mention of intractable migraine without mention of status migrainosus Hyponatremia Hyposmolality and/or hyponatremia documented in this encounter [facility]* Diagnosis Onset Date Resolution Status Climacteric acute [id number] acute Endometrial hyperplasia [facility] Work Phone: Evaluation note* Diagnosis Generalized convulsive epilepsy (HCC) Generalized convulsive epilepsy without mention of intractable epilepsy documented in this encounter [facility]* Diagnosis 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 note* Diagnosis Generalized convulsive epilepsy (HCC) Generalized convulsive epilepsy without mention of intractable epilepsy documented in this encounter [facility] note* Diagnosis MELA (obstructive sleep apnea)- Primary Obstructive sleep apnea (adult) (pediatric) documented in this encounter [facility] note* Diagnosis Generalized convulsive epilepsy (HCC) Generalized convulsive epilepsy without mention of intractable epilepsy documented in this encounter [facility] note* Diagnosis Migraine without aura and without status migrainosus, not intractable Migraine without aura, without mention of intractable migraine without mention of status migrainosus documented in this encounter [facility] Discharge instructions No data available for this section [facility] Progress note No data available for this section [facility] Reason for referral (narrative)No reason for referral information availableWPomerene Hospital Work Phone: Summary Purpose Family History [...] Date/ Time Name of Medical Power of Warehouse Operations Associate Daughter January 15, 2022 8:11am Living Will Yes January 15, 2022 8:11am Power of Warehouse Operations Associate Yes January 15 8:11am Advance Directive Response Recorded Date/ Time Name of Medical Power of Warehouse Operations Associate Daughter January 15, 2022 7:11am Living Will Yes January 15, 2022 7:11am Power of Warehouse Operations Associate Yes January 15 7:11am Advance Directive Response Recorded Date/ Time Living Will Yes January 15, 2022 7:11am Power of Warehouse Operations Associate Yes January 15 7:11am Advance Directive Response Recorded Date/ Time Living Will Yes January 15, 2022 8:11am Power of Warehouse Operations Associate Yes January 15 8:11am Advance Directive Response Recorded Date/ Time Living Will Yes March 23 1:54pm Power of Warehouse Operations Associate Yes March 23, 2023 1:54pm Advance Directive Response Recorded Date/ Time Living Will Yes March 23 12:54pm Power of Warehouse Operations Associate Yes March 23, 2023 12:54pm Chief Complaint [...] CARPAL TUNNEL RELEASE left wrist OSTEO Annual (DRYWALL TAPER) SCREENING Reason for Visit Orthopedic aftercare Encounter for routine gynecological examination Chief Complaint Annual (DRYWALL TAPER) SCREENING Reason for Visit Encounter for routin [...] post progesterone AUB Reason for Visit Climacteric [id number] Endometrial hyperplasia Chief Complaint 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, 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 ORDER AUB PMB f/u ENDOMETRIAL BIOPSY ABN HOLTER (SHAFFER) EORDERS-2 ORDERING DRS SCREENING DYSPHAGIA Reason for Visit Diastolic dysfunctio n without heart failure Epilepsy Hypertension Migraine Supraventricular tachycardia Unsteadiness Vestibular disorder Chief Complaint Admit Date pain- LEFT HIP/ LEFT KNEE May 15, 2024 3:07pm Annual (DRYWALL TAPER) May 24, 2024 1:08pm LUMBAR SPINE May 31, 2024 1:24pm room 3 May 31, 2024 1:55pm 7 M FU July 10, 2024 1 :22pm Reason for Visit Admit Date Climacteric May 24, 2024 1:08pm Encounter for gynecological examination (general) (routine) with abnormal May 24, 2024 1:08pm Endometrial hyperplasia May 24, 024 1:08pm Encounter for routine gynecological exam [...] Vestibular disorder January 02, 2025 12:4 9pm Chief Complaint Admit Date EORDERS November 20, 2024 2:14 pm 6 M FU January 02, 2025 12:4 9pm R/O AAA, FAMILY HX AAA January 21, 2025 8:35am Amb Documentation January 21, 2025 11 :25am R/O ISCHEMIA, DIASTOLIC DYSFUNCTION W/O HEART FAIL January 31, 2025 7:19am R/O ISCHEMIA, DIASTOLIC DYSFUNCTION W/O HEART FAIL February 01, 2025 1:16pm Reason for Referral Specialty Diagnoses / Procedures Referred By Ho t Referred To Contact MR IMAGING Diagnoses Dizziness Unsteadiness Procedures MRI CERVICAL SPINE WO IVCON MRI SPINAL CANAL CERVICAL W/O CONTRAST MATRL Vicenta Chirinos PA-C [address] [place] [address] Mr Imaging Referral ID Status Reason Start Date Expiration Date Visits Requested Visits Authorized [id number] Authorized [employer] ed Referral 10/20/2022 11/19/2023 1 1 Specialty Diagnoses / Procedures Referred By Kristaac t Referred To Contact MR IMAGING Diagnoses Dizziness Unsteadiness Procedures MRI BRAIN WO/W IVCON MRI BRAIN BRAIN STEM W/O W/CONTRAST MATERIAL Vicenta Chirinos PA-C [address] [place] [address] Mr Imaging Referral ID Status Reason Start Date Expiration Date Visits Requested Visits Authorized [id number] Authorized Auto-Generat ed Referral 10/20/2022 11/19/2023 1 1 Specialty Diagnoses / Procedures Referred By Kristaac t Referred To Contact Neurosurgery Diagnoses Cervical stenosis of spinal canal Procedures CONSULT TO NEUROSURGERY OFFICE/OUTPATIENT NEW HIGH MDM 60-74 MINUTES Vicenta Chirinos PA-C [address] [place] [address] Referral ID Status Reason Start Date Expiration Date Visits Requested Visits Authorized [id number] Pending Review PCP Requested Referral 11/30/2022 11/30/2023 1 1 Specialty Diagnoses / Procedures Referred By Contac t Referred To Contact [facility] Diagnoses Dizziness Unsteadiness Procedures PT REHAB FOLLOW UP ORDER THERAPEUTIC EXERCISES RE, EA 15 MIN. Marcella Pedro, PT [facility] [place] [address] [place] [address] Referral ID Status Reason Start Date Expiration Date Visits Requested Visits Authorized [id number] Pending Review PCP Requested Referral Auto-Generate d Referral 12/01/2022 03/01/2023 1 1 Specialty Diagnoses / Procedures Referred By Contac t Referred To Contact CT IMAGING Diagnoses Dizziness and giddiness Lightheadedness History of carotid stenosis Procedures CTA NECK W IVCON CT ANGIOGRAPHY NECK W/CONTRAST/NONCONTRAST Ab Shaffer Jr., MD [address] [place] [address] [place] [address] Referral ID Status Reason Start Date Expiration Date Visits Requested Visits Authorized [id number] Authorized Auto-Generat ed Referral 02/21/2023 03/22/2024 1 1 Specialty Diagnoses / Procedures Referred By Contac t Referred To Contact CT IMAGING Diagnoses Dizziness and giddiness Lightheadedness History of carotid stenosis Procedures CTA HEAD WO/W IVCON CT ANGIOGRAPHY HEAD W/CONTRAST/NONCONTRAST Ab Shaffer Jr., MD [address] [place] [address] [place] [address] Referral ID Status Reason Start Date Expiration Date Visits Requested Visits Authorized [id number] Authorized Auto-Generat ed Referral 02/21/2023 03/22/2024 1 1 Specialty Diagnoses / Procedures Referred By Contac t Referred To Contact [facility] Diagnoses Dizziness and giddiness Lightheadedness Procedures ECHO ECHO TTHRC R-T 2D W/WOM-MODE COMPL SPEC&COLR D Ab Shaffer Jr., MD [address] [place] [address] [facility] [place] [address] [place] [address] Referral ID Status Reason Start Date Expiration Date Visits Requested Visits Authorized [id number] Authorized Auto-Generat ed Referral 02/21/2023 02/21/2024 1 1 Specialty Diagnoses / Procedures Referred By Contac t Referred To Contact MR IMAGING Diagnoses Dizziness Unsteadiness Procedures MRI BRAIN WO/W IVCON MRI BRAIN BRAIN STEM W/O W/CONTRAST MATERIAL Vicenta Chirinos PA-C [address] [place] [address] Mr Imaging [facility] Referral ID Status Reason Start Date Expiration Date V isits Requested Visits Authorized [id number] Closed Auto-Generate d Referral 10/20/2022 11/19/2023 1 1 Specialty Diagnoses / Procedures Referred By Contac t Referred To Contact MR IMAGING Diagnoses Dizziness Unsteadiness Procedures MRI CERVICAL SPINE WO IVCON MRI SPINAL CANAL CERVICAL W/O CONTRAST MATRL Vicenta Chirinos PA-C [address] [place] [address] Mr Imaging [facility] Referral ID Status Reason Start Date Expiration Date V isits Requested Visits Authorized [id number] Closed Auto-Generate d Referral 10/20/2022 11/19/2023 1 1 Referral ID Status Reason Start Date Expiration Date V isits Requested Visits Authorized [id number] Closed Auto-Generate d Referral 02/21/2023 03/22/2024 1 1 Referral ID Status Reason Start Date Expiration Date V isits Requested Visits Authorized [id number] Closed Auto-Generate d Referral 02/21/2023 03/22/2024 1 1 Additional Source Comments INFORMATION SOURCE (unrecogn ized section and content) DATE CREATED AUTHOR 06/11/2019 [facility] ([place]) DATE CREATED AUTHOR AUTHOR'S ORGANIZ ATION 05/13/2020 [facility] DATE CREATED AUTHOR AUTHOR'S ORGANIZ ATION 06/02/2021 [facility] DATE CREATED AUTHOR AUTHOR'S ORGANIZ ATION 08/10/2024 [facility] DATE CREATED AUTHOR AUTHOR'S ORGANIZ ATION 04/11/2025 [facility] DATE CREATED AUTHOR AUTHOR'S ORGANIZ ATION 04/16/2025 [facility] Source Comments (unrecognize d section and content) In the event this informatio n is protected by the Federal Confidentiality of Alcohol and Drug Abuse Patient Records regulations: The Federal rules restrict any use of the information to criminally investigate or prosecute any alcohol or drug abuse patient.[facility] the event this information is protected by the Federal Confidentiality of Alcohol and Drug Abuse Patient Records regulations: The Federal rules restrict any use of the information to criminally investigate or prosecute any alcohol or drug abuse patient.[facility] HospitalIn the event this information is protected by the Federal Confidentiality of Alcohol and Drug Abuse Patient Records regulations: The Federal rules restrict any use of the information to criminally investigate or prosecute any alcohol or drug abuse patient.[facility] HospitalIn the event this information is protected by the Federal Confidentiality of Alcohol and Drug Abuse Patient Records regulations: The Federal rules restrict any use of the information to criminally investigate or prosecute any alcohol or drug abuse patient.[facility] HospitalIn the event this information is protected by the Federal Confidentiality of Alcohol and Drug Abuse Patient Records regulations: The Federal rules restrict any use of the information to criminally investigate or prosecute any alcohol or drug abuse patient.[facility] HospitalIn the event this information is protected by the Federal Confidentiality of Alcohol and Drug Abuse Patient Records regulations: The Federal rules restrict any use of the information to criminally investigate or prosecute any alcohol or drug abuse patient.[facility] HospitalIn the event this information is protected by the Federal Confidentiality of Alcohol and Drug Abuse Patient Records regulations: The Federal rules restrict any use of the information to criminally investigate or prosecute any alcohol or drug abuse patient.[facility] Hospital[facility] the event this information is protected by the Federal Confidentiality of Alcohol and Drug Abuse Patient Records regulations: The Federal rules restrict any use of the information to criminally investigate or prosecute any alcohol or drug abuse patient.[facility] HospitalIn the event this information is protected by the Federal Confidentiality of Alcohol and Drug Abuse Patient Records regulations: The Federal rules restrict any use of the information to criminally investigate or prosecute any alcohol or drug abuse patient.[facility] HospitalIn the event this information is protected by the Federal Confidentiality of Alcohol and Drug Abuse Patient Records regulations: The Federal rules restrict any use of the information to criminally investigate or prosecute any alcohol or drug abuse patient.[facility] HospitalIn the event this information is protected by the Federal Confidentiality of Alcohol and Drug Abuse Patient Records regulations: The Federal rules restrict any use of the information to criminally investigate or prosecute any alcohol or drug abuse patient.[facility] HospitalIn the event this information is protected by the Federal Confidentiality of Alcohol and Drug Abuse Patient Records regulations: The Federal rules restrict any use of the information to criminally investigate or prosecute any alcohol or drug abuse patient.[facility] HospitalIn the event this information is protected by the Federal Confidentiality of Alcohol and Drug Abuse Patient Records regulations: The Federal rules restrict any use of the information to criminally investigate or prosecute any alcohol or drug abuse patient.[facility] HospitalIn the event this information is protected by the Federal Confidentiality of Alcohol and Drug Abuse Patient Records regulations: The Federal rules restrict any use of the information to criminally investigate or prosecute any alcohol or drug abuse patient.[facility] HospitalIn the event this information is protected by the Federal Confidentiality of Alcohol and Drug Abuse Patient Records regulations: The Federal rules restrict any use of the information to criminally investigate or prosecute any alcohol or drug abuse patient.[facility] HospitalIn the event this information is protected by the Federal Confidentiality of Alcohol and Drug Abuse Patient Records regulations: The Federal rules restrict any use of the information to criminally investigate or prosecute any alcohol or drug abuse patient.[facility] HospitalIn the event this information is protected by the Federal Confidentiality of Alcohol and Drug Abuse Patient Records regulations: The Federal rules restrict any use of the information to criminally investigate or prosecute any alcohol or drug abuse patient.[facility] HospitalIn the event this information is protected by the Federal Confidentiality of Alcohol and Drug Abuse Patient Records regulations: The Federal rules restrict any use of the information to criminally investigate or prosecute any alcohol or drug abuse patient.[facility] HospitalIn the event this information is protected by the Federal Confidentiality of Alcohol and Drug Abuse Patient Records regulations: The Federal rules restrict any use of the information to criminally investigate or prosecute any alcohol or drug abuse patient.[facility] HospitalIn the event this information is protected by the Federal Confidentiality of Alcohol and Drug Abuse Patient Records regulations: The Federal rules restrict any use of the information to criminally investigate or prosecute any alcohol or drug abuse patient.[facility] HospitalIn the event this information is protected by the Federal Confidentiality of Alcohol and Drug Abuse Patient Records regulations: The Federal rules restrict any use of the information to criminally investigate or prosecute any alcohol or drug abuse patient.[facility] HospitalIn the event this information is protected by the Federal Confidentiality of Alcohol and Drug Abuse Patient Records regulations: The Federal rules restrict any use of the information to criminally investigate or prosecute any alcohol or drug abuse patient.[facility] HospitalIn the event this information is protected by the Federal Confidentiality of Alcohol and Drug Abuse Patient Records regulations: The Federal rules restrict any use of the information to criminally investigate or prosecute any alcohol or drug abuse patient.[facility] HospitalIn the event this information is protected by the Federal Confidentiality of Alcohol and Drug Abuse Patient Records regulations: The Federal rules restrict any use of the information to criminally investigate or prosecute any alcohol or drug abuse patient.[facility] HospitalIn the event this information is protected by the Federal Confidentiality of Alcohol and Drug Abuse Patient Records regulations: The Federal rules restrict any use of the information to criminally investigate or prosecute any alcohol or drug abuse patient.[facility] HospitalIn the event this information is protected by the Federal Confidentiality of Alcohol and Drug Abuse Patient Records regulations: The Federal rules restrict any use of the information to criminally investigate or prosecute any alcohol or drug abuse patient.[facility] HospitalIn the event this information is protected by the Federal Confidentiality of Alcohol and Drug Abuse Patient Records regulations: The Federal rules restrict any use of the information to criminally investigate or prosecute any alcohol or drug abuse patient.[facility] HospitalIn the event this information is protected by the Federal Confidentiality of Alcohol and Drug Abuse Patient Records regulations: The Federal rules restrict any use of the information to criminally investigate or prosecute any alcohol or drug abuse patient.[facility] HospitalIn the event this information is protected by the Federal Confidentiality of Alcohol and Drug Abuse Patient Records regulations: The Federal rules restrict any use of the information to criminally investigate or prosecute any alcohol or drug abuse patient.[facility] HospitalIn the event this information is protected by the Federal Confidentiality of Alcohol and Drug Abuse Patient Records regulations: The Federal rules restrict any use of the information to criminally investigate or prosecute any alcohol or drug abuse patient.[facility] HospitalIn the event this information is protected by the Federal Confidentiality of Alcohol and Drug Abuse Patient Records regulations: The Federal rules restrict any use of the information to criminally investigate or prosecute any alcohol or drug abuse patient.[facility] HospitalIn the event this information is protected by the Federal Confidentiality of Alcohol and Drug Abuse Patient Records regulations: The Federal rules restrict any use of the information to criminally investigate or prosecute any alcohol or drug abuse patient.[facility] HospitalIn the event this information is protected by the Federal Confidentiality of Alcohol and Drug Abuse Patient Records regulations: The Federal rules restrict any use of the information to criminally investigate or prosecute any alcohol or drug abuse patient.[facility] HospitalIn the event this information is protected by the Federal Confidentiality of Alcohol and Drug Abuse Patient Records regulations: The Federal rules restrict any use of the information to criminally investigate or prosecute any alcohol or drug abuse patient.[facility] HospitalIn the event this information is protected by the Federal Confidentiality of Alcohol and Drug Abuse Patient Records regulations: The Federal rules restrict any use of the information to criminally investigate or prosecute any alcohol or drug abuse patient.[facility] Reason for Visit (unrecogniz ed section [...] Procedures NEW RS PT VESTIBULAR DIZZY Vicenta Cihrinos PA-C [address] [phone] Marcella Pedro PT Referral ID Status Reason Start Date Expiration Date V isits Requested Visits Authorized [id number] Authorized 2022 06/12/2023 20 20 Reason Comments Physical Therapy Specialty Diagnoses / Procedures Referred By Contac t Referred To Contact Physical Therapy / PHYSICAL THERAPY Diagnoses Dizziness [R42]; Unsteadiness [R26.81] Procedures NEW RS PT VESTIBULAR DIZZY Vicenta Chirinos PA-C [address] [phone] Marcella Pedro PT Reason Comments Fax Results Reason Comments Orders Reason Comments Follow Up Reason Comments Patient Question Reason Comments Dizziness Balance/Incoordination Headaches Neck Pain Reason Comments PT Eval Specialty Diagnoses / Procedures Referred By Contac t Referred To Contact Physical Therapy / PHYSICAL THERAPY Diagnoses Dizziness [R42]; Unsteadiness [R26.81] Procedures NEW RS PT VESTIBULAR DIZZY Vicenta Chirinos PA-C [address] [place] [address] Marcella Pedro, PT Reason Comments Filter 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 - Other Specialty Diagnoses / Procedures Referred By Contac t Referred To Contact MR IMAGING Diagnoses Dizziness Unsteadiness Procedures MRI BRAIN WO/W IVCON MRI BRAIN BRAIN STEM W/O W/CONTRAST MATERIAL Vicenta Chirinos PA-C [address] [place] [address] [place] [address] Referral ID Status Reason Start Date Expiration Date V isits Requested Visits Authorized [id number] Closed Auto-Generate d Referral 10/20/2022 11/19/2023 1 1 Specialty Diagnoses / Procedures Referred By Contac t Referred To Contact MR IMAGING Diagnoses Dizziness Unsteadiness Procedures MRI CERVICAL SPINE WO IVCON MRI SPINAL CANAL CERVICAL W/O CONTRAST MATRL Vicenta Chirinos PA-C [address] [place] [address] Mr Imaging [facility] Referral ID Status Reason Start Date Expiration Date V isits Requested Visits Authorized [id number] Closed Auto-Generate d Referral 10/20/2022 11/19/2023 [address] Specialty Diagnoses / Procedures Referred By Contac t Referred To Contact CT IMAGING Diagnoses Dizziness and giddiness Lightheadedness History of carotid stenosis Procedures CTA NECK W IVCON CT ANGIOGRAPHY NECK W/CONTRAST/NONCONTRAST Ab Shaffer Jr., MD [address] [address] [place] [address] Referral ID Status Reason Start Date Expiration Date V isits Requested Visits Authorized [id number] Closed Auto-Generate d Referral 02/21/2023 03/22/2024 1 1 Reason Comments PT Discharge Specialty Diagnoses / Procedures Referred By Contac t Referred To Contact Physical Therapy / PHYSICAL THERAPY Diagnoses Dizziness [R42]; Unsteadiness [R26.81] Procedures NEW RS PT VESTIBULAR DIZZY Vicenta Chirinos PA-C [address] [place] [address] Marcella Pedro, PT Reason Onset Date Comments Refill Request 07/25/2023 Reason Comments Follow Up Pt reported decrease d vertigo, tilt table cancelled. Reason Comments Follow Up 7 month follow up wi th vertigo Reason Onset Date Comments Refill Request 06/19/[address] Mcclure office should lesley pedrog jace rnight pulse ox norma Care Teams (unrecognized sec tion and content) Nutrition Services Aide Relationship Specialty Start Date End Date Magalys Mcclure [address] [facility] [address] [place], [place] [phone] PCP - General Family Practice 12/21/19 Nutrition Services Aide Relationship Specialty Start Date End Date Magalys Mcclure [address] [facility] [address] [place], [place] [id number] PCP - General Family Practice 12/21/19 Nutrition Services Aide Relationship Specialty Start Date End Date Magalys Mcclure [address] [facility] [address] [place], [place] [phone] PCP - General Family Medicine 12/21/19 Team [...] Primary Care Provider, Attend ing Provider Active Nutrition Services Aide Relationship Specialty Start Date End Date Magalys Mcclure [address] [facility] [address] [place], [place] [phone] PCP - General Family Medicine 12/21/19 Nutrition Services Aide Relationship Specialty Start Date End Date Magalys Mcclure [address] [place] [address] PCP - General Family Medicine 12/21/19 Nutrition Services Aide Relationship Specialty Start Date End Date Magalys Mcclure [address] [place] [address] PCP - General Family Medicine 12/21/19 Nutrition Services Aide Relationship Specialty Start Date End Date Magalys Mcclure [address] [place] [address] PCP - General Family Medicine 12/21/19 Nutrition Services Aide Relationship Specialty Start Date End Date Magalys Mcclure [address] [place] [address] PCP - General Family Medicine 12/21/19 Nutrition Services Aide Relationship Specialty Start Date End Date Magalys Mcclure [address] [place] [address] PCP - General Family Medicine 12/21/19 Nutrition Services Aide Relationship Specialty Start Date End Date Magalys Mcclure [address] [place] [address] PCP - General Family Medicine 12/21/19 Nutrition Services Aide Relationship Specialty Start Date End Date Magalys Mcclure [address] [place] [address] PCP - General Family Medicine 12/21/19 Nutrition Services Aide Relationship Specialty Start Date End Date Magalys Mccluer [address] [place] [address] PCP - General Family Medicine 12/21/19 Team Status: Inactive Member Role Status Dates Dr. Magalys Mcclure MD Primary Care Provider Active Dr. Aldo Beavers MD Attending Provider, Referring Pr ovider Active Nutrition Services Aide Relationship Specialty Start Date End Date Magalys Mcclure MD [address] [place] [address] PCP - General Family Medicine 12/21/19 Nutrition Services Aide Relationship Specialty Start Date End Date Magalys Mcclure MD [address] [place] [address] PCP - General Family Medicine 12/21/19 Nutrition Services Aide Relationship Specialty Start Date End Date Magalys Mcclure MD [address] [place] [address] PCP - General Family Medicine 12/21/19 Nutrition Services Aide Relationship Specialty Start Date End Date Magalys Mcclure MD [address] [place] [address] PCP - General Family Medicine 12/21/19 Nutrition Services Aide Relationship Specialty Start Date End Date Magalys Mcclure MD [address] [place] [address] PCP - General Family Medicine 12/21/19 Nutrition Services Aide Relationship Specialty Start Date End Date Magalys Mcclure MD [address] [place] [address] PCP - General Family Medicine 12/21/19 Nutrition Services Aide Relationship Specialty Start Date End Date Magalys Mcclure MD [address] [place] [address] PCP - General Family Medicine 12/21/19 Nutrition Services Aide Relationship Specialty Start Date End Date Magalys Mcclure MD [address] [place] [address] PCP - General Family Medicine 12/21/19 Team Status: Inactive Member Role Status Dates Dr. Magalys Mcclure MD Primary Care Provider, Referr ing Provider Active Dr. Taryn Lee MD Attending Provider Active Team Status: Inactive Member Role Status Dates Dr. Magalys Mcclure MD Primary Care Provider Active Dr. Taryn Lee MD Attending Provider, Referr ing Provider Active Nutrition Services Aide Relationship Specialty Start Date End Date Magalys Mcclure MD [address] [place] [address] PCP - General Family Medicine 12/21/19 Nutrition Services Aide Relationship Specialty Start Date End Date Magalys Mcclure MD [address] [place] [address] PCP - General Family Medicine 12/21/19 Nutrition Services Aide Relationship Specialty Start Date End Date Magalys Mcclure MD [address] [place] [address] PCP - General Family Medicine 12/21/19 Team [...] Dr. Brittany Rogers DO Attending Provider Active Nutrition Services Aide Relationship Specialty Start Date End Date Magalys Mcclure MD [address] [place] [address] PCP - General Family Medicine 12/21/19 Team Status: Active Member Role Status Dates Dr. Magalys Mcclure MD Primary Care Pr ovider, Attending Provider, Referring Provider Active Team Status: Inactive Member Role Status Dates Dr. Magalys Mcclure MD Primary Care Provider Active Dr. Brittany Rogers DO Attending Provider, Referring P cliff Active Nutrition Services Aide Relationship Specialty Start Date End Date Magalys Mcclure MD [address] [place] [address] PCP - General Family Medicine 12/21/19 Nutrition Services Aide Relationship Specialty Start Date End Date Magalys Mcclure MD [address] [place] [address] PCP - General Family Medicine 12/21/19 Nutrition Services Aide Relationship Specialty Start Date End Date Magalys Mcclure MD [address] [place] [address] PCP - General Family Medicine 12/21/19 Nutrition Services Aide Relationship Specialty Start Date End Date Magalys Mcclure MD [address] [place] [address] PCP - General Family Medicine 12/21/19 Nutrition Services Aide Relationship Specialty Start Date End Date Magalys Mcclure MD [address] [place] [address] PCP - General Family Medicine 12/21/19 Team Status: Inactive Member Role Status Dates Dr. Magalys Mcclure MD Primary Care Provider Active Start: May 15, 2024 End: May 15, 2024 Dr. Magayls Mcclure MD Attending Provider Active Start: May [...] November 20, 2024 End: November 20, 2024 Nutrition Services Aide Relationship Specialty Start Date End Date Magalys Mcclure MD [address] [place] [address] PCP - General Family Medicine 12/21/19 Team [...] 2025 End: January 02, 2025 Dr. Samir Forrets MD Attending Provider Active Start: January 02, [...] Active Start: January 21, 2025 Amanda Chamberlain MOTO MIX OPERATOR, MOTO MIX OPERATOR-C Attending Provider Active Start: January 21, 2025 Nutrition Services Aide Relationship Specialty Start Date End Date Magalys Mcclure MD [address] [place] [address] PCP - General Family Medicine 12/21/19 Team Status: Inactive Member Role/Relationship Status Dates Dr. Magalys Mcclure MD Primary Care Provider Active Start: January 31, 2025 End: January 31, 2025 Dr. Samir Forrest MD Attending Provider Active Start: January 31, 2025 End: January 31, 2025 Dr. Samir Forrest MD Referring Provider Active Start: January 31, 2025 End: January 31, 2025 Team Status: Active Member Role/Relationship Status Dates Dr. Magalys Mcclure MD Primary Care Provider Active Start: January 31, 2025 Dr. Olaf Mata MD Attending Provider Active S tart: January 31, 2025 Team Status: Active Member Role/Relationship Status Dates Dr. Magalys Mcclure MD Primary Care Provider Active Start: February 01, 2025 Dr. Samir Forrest MD Referring Provider Active Start: February 01, 2025 Dr. Samir Forrest MD Other Provider Active Star t: February 01, 2025 Dr. Olaf Mata MD Attending Provider Active S tart: February 01, 2025 Goals (unrecognized section and content) Goals may [...] BE BASED ON THE PRIMARY CLINICAL RECORDS. [facility]. provides no warranty or guarantee of the accuracy or completeness of information in this document.
[2025-05-01 17:49] LABS: Color, Urine Yellow (Yellow); Glucose, Dipstick Normal (Normal); Ketone-Dipstick Negative (Negative); Leukocyte Esterase-Dipstick Negative /ul (Negative); Nitrite-Dipstick Negative (Negative); Occult Blood-Urine 10 /ul (Negative); Protein-Dipstick Negative (Negative); Specific Gravity, Urine 1.015 (1.002-1.030); Urine Bilirubin Dipstick Negative (Negative)
== END | disposition home or self-care (01) ==
LOC: MFPLAB 15:12 → LABSPEC 15:12
PROVIDERS: PCP Family Medicine
DX: N39.0 Urinary tract infection, site not specified (principal)
CPT/HCPCS: 81002; 87086